=== PATIENT | male | born 1935 | race Caucasian/White ===

== ENCOUNTER → 2018-03-03 | Outpatient (CLI) | payer MEDICARE ==
[~2018-03-03] MED LIST: ASCO500T20 PO; ASCO500T7 PO; ASCO500W4 PO; ASP325TEC PO; ASPI-586 PO; ASPI-587 PO; ASPI-999 PO; BACL10TA PO; CALC-879 PO; CALC600T PO; CALC600T12 PO; CHLO500T2 PO; CHOL200035 PO; CLOP75TA28 PO; CLOP75TA69 PO; CLPD75T PO; CYAN250014 PO; DOXY100C2 PO; DOXY100C42 PO; ENAL5TAB PO; ERGO400T3 PO; FAMO20TA5 PO; FEXO-104 PO; FINA5TAB PO; FISH1CAP15 PO; FLUT16SP22 NSEACH; FLUT50DI IH; FLUT9.9S NS; GLUCOSAMINE 1,1 EACH PO; GLUTATHIONE PO; LEVO137T2 PO; LEVO175T5 PO; LEVO500T2 PO; LEVO500T69 PO; LOPE2CAP PO; LORA10CA PO; LOSA1TAB20 PO; LOSA50TA6 PO; LVT.15T PO; MAGN400T39 PO; METO200T2 PO; METO25TA PO; MU-V1TAB28 PO; MULT-608 PO; NF-OLOP5ML OP; NITR0.4T39 SL; NTR.4SL SL; PHEN-640 PO; PHEN200T27 PO; PRM25T PO; SIMV10TA3 PO; SITA50TA PO; SODI1PAC NS; SODIUM PO; TAMS0.4C2 PO; TERA5CAP10 PO; TRIA1CAP4 PO; VITAMIN B12 PO
--- NOTE | 2018-03-03 13:18 | Diagnostic Imaging Report ---
INDICATION: Chronic low back pain. TIME OF EXAM: 11:21 a.m. FINDINGS: Three views of the lumbar spine were obtained. Curvature of the lumbar spine is normal. There is grade 2 spondylolisthesis of L5 on S1. Lumbar vertebrae demonstrate normal stature. There is multilevel degenerative disc disease with variable disc space narrowing and marginal spurring. There is a compression fracture involving the T11 vertebral body, age indeterminate. No definite retropulsion is seen. Abdominal aorta is heavily calcified. IMPRESSION: 1. Lumbar spondylosis and listhesis. 2. T11 compression fracture, age indeterminate. MRI of the lumbar spine would be useful for further evaluation. Dictated by: Dictated on workstation # [id number]
--- NOTE | 2018-03-03 13:19 | Diagnostic Imaging Report ---
INDICATION: Back pain. TIME OF EXAM: 11:21 AM FINDINGS: Lower thoracic compression fracture is again noted and described on recent lumbar spine report. This appears to represent either T11 or T12. Remaining thoracic vertebrae show normal stature. Paraspinous line is intact. IMPRESSION: Lower thoracic compression fracture, age-indeterminate. MRI could be performed to evaluate acuity. Dictated by: Dictated on workstation # [id number]
== END ==
LOC: RAD 10:39
PROVIDERS: ATTEND Nurse Practitioner Family
DX: S22.080A Wedge compression fracture of T11-T12 vertebra, initial encounter for closed fracture (principal); M47.816 Spondylosis without myelopathy or radiculopathy, lumbar region; M43.16 Spondylolisthesis, lumbar region
CPT/HCPCS: 72072; 72100

== ENCOUNTER → 2018-03-05 | Outpatient (CLI) | payer MEDICARE ==
--- NOTE | 2018-03-05 11:08 | Diagnostic Imaging Report ---
INDICATION: Back pain. TECHNIQUE: Multiplanar and multisequence acquisitions were acquired through the thoracic spine without the use of gadolinium. FINDINGS: There is an acute T11 compression fracture with approximately 50% loss of vertebral body height anteriorly. There is also some edema in the T6 vertebral body which may reflect mild compression deformity. There has been an anterior cervical disc fusion in the cervical spine. The remaining thoracic vertebral body heights are well-maintained. The visualized portions of the spinal cord are normal signal intensity and morphology. There is no focal disc extrusion or high-grade spinal stenosis. Conus medullaris seen at L1 is normal in appearance. IMPRESSION: Acute T7 compression fracture, likely amenable to kyphoplasty, if clinically warranted. Edema in the T6 vertebral body. This is nonspecific however suspect for early or occult compression fracture. No other focal abnormality in the thoracic spine. Dictated by: Dictated on workstation # [id number]
== END ==
LOC: RAD 07:09
PROVIDERS: ATTEND Nurse Practitioner Family
DX: S22.080A Wedge compression fracture of T11-T12 vertebra, initial encounter for closed fracture (principal); G95.19 Other vascular myelopathies
CPT/HCPCS: 72146

== ENCOUNTER 2018-04-26 11:31 | Emergency (ER) | payer MEDICARE ==
[~2018-04-26] VITALS: Ht 182.9 cm; Wt 72.6 kg
--- OUTSIDE RECORDS SUMMARY | 2018-04-26 11:36 | XMS REPORT ---
Author Author GEOVANNI CEDILLO Organization [facility] Address [address] [place] [address] Care Team Providers Care Gambling Broker Name Role Phone GEOVANNI CEDILLO Unavailable PROBLEMS Unknown Problems ALLERGIES No Information ENCOUNTERS Encounter Location Date Diagnosis [facility] [address] [facility] [id number] [address] Apr, Encounter for immunization Z23 IMMUNIZATIONS Vaccine Route Administration Date Status TDAP (BOOSTRIX) IM Intramuscular May 04, 2017 Administered SOCIAL HISTORY Never Assessed REASON FOR VISIT Immunization(s)-JOSE Zavala PLAN OF CARE VITAL SIGNS MEDICATIONS Unknown Medications RESULTS No Results PROCEDURES Procedure Date Ordered Result Body Site TDAP (BOOSTRIX) May 04, 2017 SINGLE IMMUNIZATION ADMIN May 04, 2017 INSTRUCTIONS MEDICATIONS ADMINISTERED No Known Medications
--- OUTSIDE RECORDS SUMMARY | 2018-04-26 11:41 | XMS REPORT | CCD ---
Author Author Shalini Mitchell MD, [facility] Address [address] [place] [address] Phone Care Team Providers Care Pest Control Service Technician Name Role Phone PP Unavailable CCM Unavailable Summary Purpose Interface Exchange Insurance Providers Payer name Policy type / Coverage type Covered constitution party ID Effective Begin Date Effective End Date WPS Medicare Part B Medicare Part B [id number] Unknown [facility] Medicare Part B [id number] Unknown Family history Mother Diagnosis Age At Onset advanced age Unknown Father Diagnosis Age At Onset autoimmune disease Unknown Social History Social History Element Codes Description Effective Dates Marital status Unknown 12/04/2014 Number of children Unknown 3 12/04/2014 Employment Unknown [email or web address] 12/04/[address]: 7032126 Quit over 10 years ago 12/04/[address]: 401613349 Never drinks alcohol 12/04/2014 Allergies, Adverse Reactions, Alerts Substance Reaction Codes Entered Date Inactivated Date Status Seasonal Unknown 12/04/2014 No Inactive Date Active * NO KNOWN DRUG ALLERGIES Unknown 12/04/2014 No Inactive Date Active Past Medical History Illness Codes Condition Status Onset Date Resolved Date Low back pain ICD-9: 724.2 ICD-10: M54.5 Active 03/03/2018 Unknown Mild cognitive impairment, so stated ICD-9: 331.83 ICD-10: G31.84 Active 03/03/2018 Unknown Pain in thoracic spine ICD-9: 724.1 ICD-10: M54.6 Active 03/03/2018 Unknown Allergic rhinitis due to pollen ICD-9: 477.9 ICD-10: J30.1 Active 04/01/2017 Unknown Essential (primary) hypertension ICD-9: 401.1 ICD-10: I10 Active 10/19/2016 Unknown Hypothyroidism, unspecified ICD-9: 244.9 ICD-10: E03.9 Active 07/22/2016 Unknown Mixed hyperlipidemia ICD-9: 272.2 ICD-10: E78.2 Active 07/22/2016 Unknown Other allergic rhinitis ICD-9: 477.8 ICD-10: J30.89 Active 04/08/2017 Unknown Type 2 diabetes mellitus without complications ICD-9: 250.00 ICD-10: E11.9 Active 07/22/2016 Unknown Laceration without foreign body of left forearm, initial encounter ICD-9: 881.00 ICD-10: S51.812A Active 12/16/2017 Unknown Laceration without foreign body of left hand, initial encounter ICD-9: 882.0 ICD-10: S61.412A Active 11/10/2017 Unknown Dizziness and giddiness ICD-9: 780.4 ICD-10: R42 Active 10/13/2017 Unknown Syncope and collapse ICD-9: 780.2 ICD-10: R55 Active 10/13/2017 Unknown Cough ICD-9: 786.2 ICD-10: R05 Active 08/03/2017 Unknown Acute bronchitis due to other specified organisms ICD-9: 466.0 ICD-10: J20.8 Active 08/03/2017 Unknown Encounter for immunization ICD-9: V06.6 ICD-10: Z23 Active 04/01/2017 Unknown Allergic rhinitis due to pollen ICD-9: 477.0 ICD-10: J30.1 Active 05/11/2016 Unknown Pain in left knee ICD- 9: 719.46 ICD-10: M25.562 Active 03/25/2016 Unknown Essential (primary) hypertension ICD-9: 401.9 ICD-10: I10 Active 07/22/2016 Unknown Acute recurrent maxillary sinusitis ICD-9: 461.0 ICD-10: J01.01 Active 05/18/2016 Unknown Encounter for immunization ICD-9: V03.82 ICD-10: Z23 Active 05/04/2016 Unknown Encounter for immunization ICD-9: V04.81 ICD-10: Z23 Active 04/23/2016 Unknown bladder cancer Unknown Active 04/21/2016 Unknown Localized edema ICD-9 : 782.3 ICD-10: R60.0 Active 03/25/2016 Unknown Pain in right shoulder ICD-9: 719.41 ICD-10: M25.511 Active 01/26/2016 Unknown Lichen planus, unspecified ICD-9: 697.0 ICD-10: L43.9 Active 08/26/2015 Unknown Cervical disc disorder with radiculopathy, unspecified cervical region ICD-9: 722.71 ICD-10: M50.10 Active 06/05/2015 Unknown Cervicalgia ICD-9: 723.1 ICD-10: M54.2 Active 04/29/2015 Unknown Primary osteoarthritis, unspecified site ICD-9: 715.90 ICD-10: M19.91 Active 04/22/2015 Unknown Osteoarthritis Unknown Active 03/04/2015 Unknown Osteoarthritis ICD-9: 715.90 Active 03/03/2015 Unknown Diabetes Unknown Active 12/04/2014 Unknown Hypertension Unknown Active 12/04/2014 Unknown Hypothryroidism Unknown Active 12/04/2014 Unknown ACTINIC KERATOSIS ICD- 9: 702.0 Active 12/03/2014 Unknown DIABETES TYPE II ICD-9 : 250.00 Active 12/03/2014 Unknown ESSENTIAL HYPERTENSION ICD-9: 401.9 Active 12/03/2014 Unknown Hypothyroidism ICD-9: 244.9 Active 12/03/2014 Unknown Problems Condition Codes Effective Dates Condition Status Low back pain ICD-9: 724.2 ICD-10: M54.5 03/03/2018 Active Mild cognitive impairment, so stated ICD-9: 331.83 ICD-10: G31.84 03/03/2018 Active Pain in thoracic spine ICD-9: 724.1 ICD-10: M54.6 03/03/2018 Active Allergic rhinitis due to pollen ICD-9: 477.9 ICD-10: J30.1 04/01/2017 Active Essential (primary) hypertension ICD-9: 401.1 ICD-10: I10 10/19/2016 Active Hypothyroidism, unspecified ICD-9: 244.9 ICD-10: E03.9 07/22/2016 Active Mixed hyperlipidemia ICD-9: 272.2 ICD-10: E78.2 07/22/2016 Active Other allergic rhinitis ICD-9: 477.8 ICD-10: J30.89 04/08/2017 Active Type 2 diabetes mellitus without complications ICD-9: 250.00 ICD-10: E11.9 07/22/2016 Active Laceration without foreign body of left forearm, initial encounter ICD-9: 881.00 ICD-10: S51.812A 12/16/2017 Active Laceration without foreign body of left hand, initial encounter ICD-9: 882.0 ICD-10: S61.412A 11/10/2017 Active Dizziness and giddiness ICD-9: 780.4 ICD-10: R42 10/13/2017 Active Syncope and collapse ICD-9: 780.2 ICD-10: R55 10/13/2017 Active Cough ICD-9: 786.2 ICD-10: R05 08/03/2017 Active Acute bronchitis due to other specified organisms ICD-9: 466.0 ICD-10: J20.8 08/03/2017 Active Encounter for immunization ICD-9: V06.6 ICD-10: Z23 04/01/2017 Active Allergic rhinitis due to pollen ICD-9: 477.0 ICD-10: J30.1 05/11/2016 Active Pain in left knee ICD- 9: 719.46 ICD-10: M25.562 03/25/2016 Active Essential (primary) hypertension ICD-9: 401.9 ICD-10: I10 07/22/2016 Active Acute recurrent maxillary sinusitis ICD-9: 461.0 ICD-10: J01.01 05/18/2016 Active Encounter for immunization ICD-9: V03.82 ICD-10: Z23 05/04/2016 Active Encounter for immunization ICD-9: V04.81 ICD-10: Z23 04/23/2016 Active bladder cancer Unknown 04/21/2016 Active Localized edema ICD-9 : 782.3 ICD-10: R60.0 03/25/2016 Active Pain in right shoulder ICD-9: 719.41 ICD-10: M25.511 01/26/2016 Active Lichen planus, unspecified ICD-9: 697.0 ICD-10: L43.9 08/26/2015 Active Cervical disc disorder with radiculopathy, unspecified cervical region ICD-9: 722.71 ICD-10: M50.10 06/05/2015 Active Cervicalgia ICD-9: 723.1 ICD-10: M54.2 04/29/2015 Active Primary osteoarthritis, unspecified site ICD-9: 715.90 ICD-10: M19.91 04/22/2015 Active Osteoarthritis Unknown 03/04/2015 Active Osteoarthritis ICD-9: 715.90 03/03/2015 Active Diabetes Unknown 12/04/2014 Active Hypertension Unknown 12/04/2014 Active Hypothryroidism Unknown 12/04/2014 Active ACTINIC KERATOSIS ICD- 9: 702.0 12/03/2014 Active DIABETES TYPE II ICD-9 : 250.00 12/03/2014 Active ESSENTIAL HYPERTENSION ICD-9: 401.9 12/03/2014 Active Hypothyroidism ICD-9: 244.9 12/03/2014 Active Medications Medication Codes Instructions Start Date Stop Date Status Fill Instructions ketoconazole 2 % shampoo RxNorm: 263368 1 Application TOP UD 12/04/2018 Active Xyzal 5 mg tablet RxNorm: 701408 1 Tablet(s) PO daily 201706/23/2018 Active Xyzal 5 mg tablet RxNorm: 397337 1 Tablet(s) PO daily 201702/23/2018 Inactive metoprolol succinate ER 25 mg tablet,extended release 24 hr RxNorm: 502232 TAKE ONE TABLET BY MOUTH ONCE DAILY 01/10/2018 No Stop Date Active baclofen 10 mg tablet RxNorm: 852605 TAKE ONE TABLET BY MOUTH THREE TIMES DAILY NEEDED FOR MUSCLE SPASM 12/16/2017 No Stop Date Active Jardiance 10 mg tablet RxNorm: 8554614 1 Tablet(s) PO daily 11/201704/18/2018 Active tamsulosin 0.4 mg capsule RxNorm: 530398 TAKE ONE CAPSULE BY MOUTH ONCE DAILY 10/04/2017 No Stop Date Active Zithromax Z-Anil 250 mg tablet RxNorm: 937090 1 Tablet(s) PO UD 08/30/2017 09/03/2017 Inactive zpack Tessalon 200 mg capsule RxNorm: 460164 1 Capsule(s) PO TID as needed 08/23/2017 09/11/2017 Inactive Tessalon 200 mg capsule RxNorm: 795141 1 Capsule(s) PO TID as needed 08/23/2017 08/22/2017 Inactive prednisone 10 mg tablet RxNorm: 651378 Tablet(s) PO UD 2017 No Stop Date Active 6,5,4,3,2,1 doxycycline hyclate 100 mg capsule RxNorm: 2766889 1 Capsule(s) PO BID 08/18/2017 08/27/2017 Inactive Phenergan-Codeine 6.25 mg-10 mg/5 mL syrup RxNorm: 794406 5 to 10 ml PO Q6 as needed 08/17/2017 08/22/2017 Inactive Zithromax Z-Anil 250 mg tablet RxNorm: 045205 1 Tablet(s) PO UD 2017 08/17/2017 Inactive zpack ceftriaxone 500 mg solution for injection RxNorm: 6845298 Inj 08/03/2017 08/03/2017 Inactive cephalexin 500 mg capsule RxNorm: 804553 1 Capsule(s) PO QID 08/09/2017 Inactive Kenalog 40 mg/mL suspension for injection RxNorm: 7678611 1 Milliliter(s) Inj 08/03/2017 08/03/2017 Inactive losartan 50 mg tablet RxNorm: 939138 TAKE ONE TABLET BY MOUTH ONCE DAILY IN THE MORNING 08/02/2017 No Stop Date Active simvastatin 10 mg tablet RxNorm: 303347 TAKE ONE TABLET BY MOUTH ONCE DAILY 08/02/2017 No Stop Date Active levothyroxine 137 mcg tablet RxNorm: 901909 TAKE ONE TABLET BY MOUTH ONCE DAILY 07/26/2017 No Stop Date Active Flonase Allergy Relief 50 mcg/actuation nasal spray, suspension RxNorm: 9521737 USE TWO SPRAY(S) IN EACH NOSTRIL ONCE DAILY 06/28/2017 No Stop Date Active baclofen 10 mg tablet RxNorm: 353936 TAKE ONE TABLET BY MOUTH THREE TIMES DAILY NEEDED FOR MUSCLE SPASM 06/28/20172017 Inactive Kenalog 40 mg/mL suspension for injection RxNorm: 1925072 1 Milliliter(s) Inj 04/08/2017 04/08/2017 Inactive doxycycline hyclate 100 mg tablet RxNorm: 015139 1 Tablet(s) PO BID 04/01/2017 04/10/2017 Inactive PLEASE GIVE 90 DAY SUPPLY losartan 50 mg tablet RxNorm: 254090 TAKE ONE TABLET BY MOUTH ONCE DAILY IN THE MORNING 02/01/2017 07/30/2017 Inactive levothyroxine 137 mcg tablet RxNorm: 863932 1 Tablet(s) PO daily 01/22/2017 07/20/2017 Inactive hold until he calls for fill- using samples from office metoprolol succinate ER 25 mg tablet,extended release 24 hr RxNorm: 463992 1 Tablet(s) PO daily 01/11/2017 01/05/2018 Inactive tamsulosin 0.4 mg capsule RxNorm: 289668 TAKE ONE CAPSULE BY MOUTH ONCE DAILY 01/11/2017 10/03/2017 Inactive simvastatin 10 mg tablet RxNorm: 368262 TAKE ONE TABLET BY MOUTH ONCE DAILY 12/17/2016 06/14/2017 Inactive levothyroxine 150 mcg tablet RxNorm: 024236 1 Tablet(s) PO daily 09/24/2016 01/21/2017 Inactive doxycycline hyclate 100 mg tablet RxNorm: 872206 1 Tablet(s) PO daily 07/30/2016 01/25/2017 Inactive PLEASE GIVE 90 DAY SUPPLY doxycycline hyclate 100 mg tablet RxNorm: 247749 1 Tablet(s) PO daily 07/27/2016 07/29/2016 Inactive PLEASE GIVE 90 DAY SUPPLY quinine 324 mg capsule RxNorm: 225420 1 Capsule(s) PO HS PRN No Stop Date Active LEG CRAMPS doxycycline hyclate 100 mg tablet RxNorm: 851318 1 Tablet(s) PO daily 05/29/2016 07/26/2016 Inactive PLEASE GIVE 90 DAY SUPPLY Kenalog 40 mg/mL suspension for injection RxNorm: 6249905 Milliliter(s) Inj 05/19/2016 05/19/2016 Inactive Levaquin 500 mg tablet RxNorm: 388593 1 Tablet(s) PO daily 07/201505/25/2016 Inactive Zithromax Z-Anil 250 mg tablet RxNorm: 207028 1 Tablet(s) PO UD 05/14/2016 09/09/2016 Inactive zpack Kenalog 40 mg/mL suspension for injection RxNorm: 8545732 Milliliter(s) Inj 05/12/2016 05/12/2016 Inactive Zithromax Z-Anil 250 mg tablet RxNorm: 777438 1 Tablet(s) PO UD 05/08/2016 05/12/2016 Inactive dejan Flonase Allergy Relief 50 mcg/actuation nasal spray, suspension RxNorm: 3683610 2 [place] NASAL daily 04/21/20162016 Inactive levothyroxine 150 mcg tablet RxNorm: 782242 1 Tablet(s) PO daily 04/21/2016 09/23/2016 Inactive baclofen 10 mg tablet RxNorm: 305945 1 Tablet(s) PO TID as needed for muscle spasms 04/10/2016 11/05/2016 Inactive Flonase Allergy Relief 50 mcg/actuation nasal spray, suspension RxNorm: 9380156 2 [place] NASAL daily 01/27/20162015 Inactive losartan 50 mg tablet RxNorm: 646523 1 Tablet(s) PO QAM 201501/09/2017 Inactive magnesium oxide 400 mg tablet RxNorm: 019730 1 Tablet(s) PO daily 01/16/2016 01/09/2017 Inactive omega 9-rwu-mbc-fish oil 300 mg-1,000 mg capsule,delayed release RxNorm: 1 Capsule(s) PO daily 01/16/2016 01/09/2017 Inactive ask pt if this is needed- he may use OTC levothyroxine 175 mcg tablet RxNorm: 268224 1 Tablet(s) PO daily 01/16/2016 04/20/2016 Inactive metoprolol succinate ER 25 mg tablet,extended release 24 hr RxNorm: 565146 1 Tablet(s) PO daily 01/16/2016 01/09/2017 Inactive baclofen 10 mg tablet RxNorm: 564512 1 Tablet(s) PO TID as needed for muscle spasms 01/16/2016 04/09/2016 Inactive omega 9-hkk-fiz-fish oil 300 mg-1,000 mg capsule,delayed release RxNorm: 1 Capsule(s) PO daily 01/16/2016 01/15/2016 Inactive ask pt if this is needed- he may use OTC simvastatin 10 mg tablet RxNorm: 052920 1 Tablet(s) PO daily 12/16/2016 Inactive tamsulosin 0.4 mg capsule RxNorm: 136038 TAKE ONE CAPSULE BY MOUTH ONCE DAILY 01/05/2016 01/10/2017 Inactive levothyroxine 150 mcg tablet RxNorm: 259097 1 Tablet(s) PO daily 12/05/2015 12/04/2015 Inactive levothyroxine 150 mcg tablet RxNorm: 292903 1 Tablet(s) PO daily 12/05/2015 01/15/2016 Inactive metoprolol succinate ER 25 mg tablet,extended release 24 hr RxNorm: 223063 1 Tablet(s) PO daily 10/22/2015 01/15/2016 Inactive losartan 50 mg tablet RxNorm: 579321 1 Tablet(s) PO QAM 201501/15/2016 Inactive levothyroxine 175 mcg tablet RxNorm: 000641 1 Tablet(s) PO daily 09/09/2015 12/04/2015 Inactive doxycycline hyclate 100 mg tablet RxNorm: 090623 1 Tablet(s) PO daily 08/27/2015 01/15/2016 Inactive PLEASE GIVE 90 DAY SUPPLY doxycycline hyclate 100 mg tablet RxNorm: 162152 1 Tablet(s) PO daily 08/27/2015 08/26/2015 Inactive chlorzoxazone 500 mg tablet RxNorm: 561603 1 Tablet(s) PO Q6 as needed muscle spasms 08/15/2015 03/11/2016 Inactive chlorzoxazone 500 mg tablet RxNorm: 249714 1 Tablet(s) PO Q6 as needed muscle spasms 08/15/2015 08/14/2015 Inactive ketoconazole 2 % shampoo RxNorm: 246241 1 Application TOP UD 08/04/2015 Inactive ketoconazole 2 % shampoo RxNorm: 862673 1 Application TOP UD 01/15/2016 Inactive clobetasol 0.05 % topical solution RxNorm: 879049 1 Application TOP daily 08/01/2015 07/31/2015 Inactive clobetasol 0.05 % topical solution RxNorm: 715912 1 Application TOP daily 08/01/2015 01/15/2016 Inactive levothyroxine 175 mcg tablet RxNorm: 570250 1 Tablet(s) PO daily 07/22/2015 09/08/2015 Inactive doxycycline hyclate 100 mg tablet RxNorm: 529661 1 Tablet(s) PO daily 07/17/2015 08/15/2015 Inactive levothyroxine 175 mcg tablet RxNorm: 098675 Tablet(s) PO every other day 07/17/2015 07/21/2015 Inactive Zithromax Z-Anil 250 mg tablet RxNorm: 281403 1 Tablet(s) PO 05/07/2016 Inactive 1 zpack finasteride 5 mg tablet RxNorm: 386986 1 Tablet(s) PO daily 12/27/2015 Inactive simvastatin 10 mg tablet RxNorm: 427660 1 Tablet(s) PO daily 12/27/2015 Inactive clopidogrel 75 mg tablet RxNorm: 592590 1 Tablet(s) PO daily 01/15/2016 Inactive metoprolol succinate ER 25 mg tablet,extended release 24 hr RxNorm: 973365 1 Tablet(s) PO daily 07/01/2015 10/21/2015 Inactive levothyroxine 150 mcg tablet RxNorm: 916499 1 Tablet(s) PO daily 07/01/2015 07/21/2015 Inactive tamsulosin 0.4 mg capsule RxNorm: 367063 1 Capsule(s) PO daily 07/01/2015 12/27/2015 Inactive losartan 50 mg tablet RxNorm: 507941 1 Tablet(s) PO QAM 201410/17/2015 Inactive levothyroxine 150 mcg tablet RxNorm: 975757 1 Tablet(s) PO daily 07/01/2015 06/30/2015 Inactive Zithromax Z-Anil 250 mg tablet RxNorm: 825958 1 Tablet(s) PO 03/201507/09/2015 Inactive 1 zpack Januvia 100 mg tablet RxNorm: 431664 1/2 Tablet(s) PO BID 201410/20/2017 Inactive Januvia 50 mg tablet RxNorm: 192884 1 Tablet(s) PO BID 201404/22/2015 Inactive chlorzoxazone 500 mg tablet RxNorm: 047564 1 Tablet(s) PO Q6 as needed muscle spasms 01/21/2015 01/20/2015 Inactive baclofen 10 mg tablet RxNorm: 291299 1 Tablet(s) PO TID as needed for muscle spasms 01/21/2015 06/30/2015 Inactive chlorzoxazone 500 mg tablet RxNorm: 919570 1 Tablet(s) PO Q6 as needed muscle spasms 01/21/2015 03/03/2015 Inactive Vitamin D3 2,000 unit tablet RxNorm: 623113 Tablet(s) PO BID No Stop Date Active [SAVINGS FOR NON-COVERED DRUGS -- BIN:[id number], PCN: [id number], Group: XXXXX , ID# [id number], Questions: . THIS IS NOT INSURANCE.] Claritin 10 mg tablet RxNorm: 746878 1 Tablet(s) PO daily No Start Date Active aspirin 81 mg tablet RxNorm: 782909 Tablet(s) PO daily No Start Date Active Centrum Silver oral RxNorm: 92880 oral No Start Date Active Calcium Citrate + D 600 mg RxNorm: 630mg PO daily No Start Date Active sodium chloride oral RxNorm: oral No Start Date Active Vitamin C 500 mg chewable tablet RxNorm: 035965 1 Tablet(s) PO No Start Date Active Cerefolin NAC (algal oil) 6 mg-600 mg-2 mg-90.314 mg tablet RxNorm: 1 Tablet (s) PO daily No Start Date Active Vitamin B12 Oral RxNorm: oral No Start Date Active Fish Oil (with DHA-EPA) capsule RxNorm: oral No Start Date 01/15/2016 Inactive clopidogrel 75 mg tablet RxNorm: 004970 1 Tablet(s) PO daily No Start Date 06/30/2015 Inactive metoprolol succinate ER 25 mg tablet,extended release 24 hr RxNorm: 993027 1 Tablet(s) PO daily No Start Date 2014 Inactive simvastatin 10 mg tablet RxNorm: 998017 1 Tablet(s) PO daily No Start Date 06/30/2015 Inactive Claritin 10 mg tablet RxNorm: 543263 1 Tablet(s) PO daily No Start Date 07/16/2015 Inactive levothyroxine 175 mcg tablet RxNorm: 358077 Tablet(s) PO every other day No Start Date 06/30/2015 Inactive Vitamin D3 2,000 unit tablet RxNorm: 928716 Tablet(s) PO daily No Start Date 12/03/2014 Inactive losartan 50 mg tablet RxNorm: 047333 1 Tablet(s) PO QAM No Start Date 06/30/2015 Inactive magnesium oxide 400 mg tablet RxNorm: 458165 1 Tablet(s) PO daily No Start Date 01/15/2016 Inactive Phenergan-Codeine 6.25 mg-10 mg/5 mL syrup RxNorm: 342644 5 to 10 ml PO Q6 No Start Date 08/16/2017 Inactive baclofen 10 mg tablet RxNorm: 066979 1 Tablet(s) PO TID as needed for muscle spasms No Start Date 01/20/2015 Inactive finasteride 5 mg tablet RxNorm: 287235 1 Tablet(s) PO daily No Start Date 06/30/2015 Inactive quinine 324 mg capsule RxNorm: 577413 1 Capsule(s) PO HS PRN No Start Date 06/14/2016 Inactive LEG CRAMPS Vitamin D3 (with calcium carbonate) oral RxNorm: 744356 oral No Start Date 01/15/2016 Inactive Zithromax Z-Anil 250 mg tablet RxNorm: 235720 1 Tablet(s) PO No Start Date 06/25/2015 Inactive 1 zpack levothyroxine 150 mcg tablet RxNorm: 345449 Tablet(s) PO every other day No Start Date 06/30/2015 Inactive Januvia 50 mg tablet RxNorm: 264333 1 Tablet(s) PO daily No Start Date 03/06/2015 Inactive fluticasone 50 mcg/actuation nasal spray,suspension RxNorm: 495950 1 [place] NASAL daily No Start Date 01/15/2016 Inactive tamsulosin ER 0.4 mg capsule,extended release 24 hr RxNorm: 418053 1 Capsule(s) PO daily No Start Date 06/30/2015 Inactive Ellie 180 mg tablet RxNorm: 616076 1 Tablet(s) PO daily No Start Date 01/15/2016 Inactive Medication Administered Medication Codes Instructions Start Date Status ceftriaxone 500 mg solution for injection RxNorm: 8557135 08/03/2017 No longer Active Kenalog 40 mg/mL suspension for injection RxNorm: 4882610 1Milliliter 08/03/2017 No longer Active Kenalog 40 mg/mL suspension for injection RxNorm: 1059087 1Milliliter 04/08/2017 No longer Active Kenalog 40 mg/mL suspension for injection RxNorm: 9497051 Milliliter 05/19/2016 No longer Active Kenalog 40 mg/mL suspension for injection RxNorm: 2514605 Milliliter 05/12/2016 No longer Active Immunizations Vaccine Codes Date Status Influenza CVX: 141 04/01/2017 completed Pneumococcal (Adult) CVX: 33 05/05/2016 completed Influenza CVX: 141 04/24/2016 completed Influenza CVX: 141 04/17/2015 completed Pneumococcal CVX: 133 04/17/2015 completed Influenza CVX: 141 05/19/2014 completed Zoster CVX: 121 04/18/2006 completed Pneumococcal CVX: 33 06/18/2005 completed Assessments Condition Codes Effective Dates Mild cognitive impairment, so stated ICD-10: G31.84 ICD-9: 331.83 03/03/2018 Pain in thoracic spine ICD-10: M54.6 ICD-9: 724.1 03/03/2018 Low back pain ICD-10: M54.5 ICD-9: 724.2 03/03/2018 Essential (primary) hypertension ICD-10: I10 ICD-9: 401.1 01/10/2018 Other allergic rhinitis ICD-10: J30.89 ICD-9: 477.8 01/10/2018 Mixed hyperlipidemia ICD-10: E78.2 ICD-9: 272.2 01/10/2018 Hypothyroidism, unspecified ICD-10: E03.9 ICD-9: 244.9 01/10/2018 Type 2 diabetes mellitus without complications ICD-10: E11.9 ICD-9: 250.00 01/10/2018 Laceration without foreign body of left forearm, initial encounter ICD-10: S51.812A ICD-9: 881.00 12/16/2017 Laceration without foreign body of left hand, initial encounter ICD-10: S61.412A ICD-9: 882.0 11/10/2017 Dizziness and giddiness ICD-10: R42 ICD-9: 780.4 10/13/2017 Syncope and collapse ICD-10: R55 ICD-9: 780.2 10/13/2017 Cough ICD-10: R05 ICD-9: 786.2 09/01/2017 Acute bronchitis due to other specified organisms ICD-10: J20.8 ICD-9: 466.0 08/18/2017 Encounter for immunization ICD-10: Z23 ICD-9: V06.6 04/01/2017 Allergic rhinitis due to pollen ICD-10: J30.1 ICD-9: 477.0 01/21/2017 Pain in left knee ICD-10: M25.562 ICD-9: 719.46 10/19/2016 Essential (primary) hypertension ICD-10: I10 ICD-9: 401.9 07/23/2016 Acute recurrent maxillary sinusitis ICD-10: J01.01 ICD-9: 461.0 05/19/2016 Encounter for immunization ICD-10: Z23 ICD-9: V03.82 05/05/2016 Encounter for immunization ICD-10: Z23 ICD-9: V04.81 04/24/2016 Localized edema ICD-10: R60.0 ICD-9: 782.3 03/26/2016 Pain in right shoulder ICD-10: M25.511 ICD-9: 719.41 01/27/2016 Lichen planus, unspecified ICD-10: L43.9 ICD-9: 697.0 08/27/2015 Cervical disc disorder with radiculopathy, unspecified cervical region ICD-10: M50.10 ICD-9: 722.71 06/06/2015 Cervicalgia ICD-10: M54.2 ICD-9: 723.1 04/30/2015 Primary osteoarthritis, unspecified site ICD-10: M19.91 ICD-9: 715.90 04/23/2015 Osteoarthritis ICD-9: 715.90 03/04/2015 ESSENTIAL HYPERTENSION ICD-9: 401.9 03/04 DIABETES TYPE II ICD-9: 250.00 2014 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 2014 Hypothyroidism ICD-9: 244.9 12/04/2014 Reason For Visit Reason For Visit Effective Dates Notes back pain 03/03/2018 sinus congestion 01/10/2018 laceration of the arm 12/16/2017 dizziness 10/13/2017 diabetes mellitus 10/04/2017 cough 09/01/2017 cough 08/18/2017 cough 08/03/2017 diabetes mellitus 07/05/2017 diabetes mellitus 04/23/2017 sinus congestion 04/08/2017 vaccination against influenza 04/01/2017 diabetes mellitus 01/21/2017 diabetes mellitus 10/19/2016 diabetes mellitus 07/23/2016 cough 05/19/2016 vaccination against pneumonia 05/05/2016 vaccination against influenza 04/24/2016 diabetes mellitus 04/21/2016 knee pain 03/26/2016 Hospital Follow Up 01/27/2016 medication follow up 10/28/2015 hypertension 08/27/2015 hypertension 06/06/2015 neck pain 04/30/2015 hypertension 04/23/2015 hypertension 03/04/2015 hypertension 12/04/2014 Results Observation Observation Code Item Item Code Result Date Lipid Ord30 CHOL 142 mg/dL 01/11/2018 Lipid Ord30 HDL 50.0 mg/dl 01/11/2018 Lipid Ord30 TRIG 111 mg/dL 01/11/2018 Lipid Ord30 LDL 70 mg/dL 01/11/2018 Lipid Ord30 C/HDL 2.8 Ratio 01/11/2018 %Hba1C [id number] % HbA1c 68561-7 6.9 % 01/11/2018 %Hba1C [id number] Gluc Ave 151 mg/dL 01/11/2018 Cbc With Differential Ord2 WBC 6.90 K/ul 01/11/2018 Cbc With Differential Ord2 RBC 4.87 M/ul 01/11/2018 Cbc With Differential Ord2 HGB 14.6 g/dl 01/11/2018 Cbc With Differential Ord2 HCT 45.1 % 01/11/2018 Cbc With Differential Ord2 Neut% 62.9 % 01/11/2018 Cbc With Differential Ord2 Lymph% 17.4 % 01/11/2018 Cbc With Differential Ord2 MCV 92.6 fl 01/11/2018 Cbc With Differential Ord2 MCH 30.0 pg 01/11/2018 Cbc With Differential Ord2 [place]% 13.3 % 01/11/2018 Cbc With Differential Ord2 Eos% 5.4 % 01/11/2018 Cbc With Differential Ord2 MCHC 32.4 pg 01/11/2018 Cbc With Differential Ord2 Baso% 1.0 % 01/11/2018 Cbc With Differential Ord2 PLT 322 K/ul 01/11/2018 Cbc With Differential Ord2 RDW 13.8 % 01/11/2018 Cbc With Differential Ord2 Neut ABS# 4.34 K/ul 01/11/2018 Cbc With Differential Ord2 Lymph ABS# 1.20 K/ul 01/11/2018 Cbc With Differential Ord2 [place] ABS# 0.9 K/ul 01/11/2018 Cbc With Differential Ord2 Eos ABS# 0.4 K/ul 01/11/2018 Cbc With Differential Ord2 Baso ABS# 0.1 K/ul 01/11/2018 Tsh Ord6 TSH (3rd IS) 1.73 uIU/mL 01/11/2018 Comp Metabolic Ouj781 NA 140 mEq/L 01/11/2018 Comp Metabolic Jfq058 K 4.1 mEq/L 01/11/2018 Comp Metabolic Vvu232 CL 103 mEq/L 01/11/2018 Comp Metabolic Ekh748 CO2 28.0 mEq/L 01/11/2018 Comp Metabolic Mcv281 ANION GAP 13 01/11/2018 Comp Metabolic Wyd416 GLUCOSE 151 mg/dL 01/11/2018 Comp Metabolic Nnb945 Creat 0.9 mg/dL 01/11/2018 Comp Metabolic Lxl502 eGFR 87 ml/min/1.73m2 01/11/2018 Comp Metabolic Dlo141 BUN 18 mg/dL 01/11/2018 Comp Metabolic Tex399 B/C Ratio 20.2 Ratio 01/11/2018 Comp Metabolic Pqn846 CALCIUM 9.3 mg/dL 01/11/2018 Comp Metabolic Quk568 ALK PHOS 70 U/L 01/11/2018 Comp Metabolic Gta562 AST(SGOT) 18 U/L 01/11/2018 Comp Metabolic Nzr636 ALT(SGPT) 17 U/L 01/11/2018 Comp Metabolic Ydv857 BILI T 0.7 mg/dL 01/11/2018 Comp Metabolic Yvt307 ALBUMIN 4.1 g/dL 01/11/2018 Comp Metabolic Fzx955 TPRO 6.4 g/dL 01/11/2018 Comp Metabolic Sis131 GLOB 2.3 g/dL 01/11/2018 Comp Metabolic Kxu680 A/G Ratio 1.7 Ratio 01/11/2018 Comp Metabolic Bzu627 Osmo 284 mOsmo 01/11/2018 Free T4 Xnw443 FREE T4 0.80 ng/dL 10/08/2017 Lipid Ord30 CHOL 151 mg/dL 10/08/2017 Lipid Ord30 HDL 58.0 mg/dl 10/08/2017 Lipid Ord30 TRIG 126 mg/dL 10/08/2017 Lipid Ord30 LDL 68 mg/dL 10/08/2017 Lipid Ord30 C/HDL 2.6 Ratio 10/08/2017 Microalbumin Dkc195 MicroAlb <0.7 mg/dL 10/08/2017 %Hba1C Igj863 % HbA1c 95436-7 6.9 % 10/08/2017 %Hba1C Bfr153 Gluc Ave 151 mg/dL 10/08/2017 Tsh Ord6 TSH (3rd IS) 3.41 uIU/mL 10/08/2017 Cbc With Differential Ord2 WBC 6.07 K/ul 10/08/2017 Cbc With Differential Ord2 RBC 4.44 M/ul 10/08/2017 Cbc With Differential Ord2 HGB 13.5 g/dl 10/08/2017 Cbc With Differential Ord2 Neut% 66.0 % 10/08/2017 Cbc With Differential Ord2 HCT 41.0 % 10/08/2017 Cbc With Differential Ord2 MCV 92.3 fl 10/08/2017 Cbc With Differential Ord2 Lymph% 17.3 % 10/08/2017 Cbc With Differential Ord2 MCH 30.4 pg 10/08/2017 Cbc With Differential Ord2 [place]% 13.7 % 10/08/2017 Cbc With Differential Ord2 Eos% 2.3 % 10/08/2017 Cbc With Differential Ord2 MCHC 32.9 pg 10/08/2017 Cbc With Differential Ord2 PLT 298 K/ul 10/08/2017 Cbc With Differential Ord2 Baso% 0.7 % 10/08/2017 Cbc With Differential Ord2 Neut ABS# 4.01 K/ul 10/08/2017 Cbc With Differential Ord2 RDW 15.1 % 10/08/2017 Cbc With Differential Ord2 Lymph ABS# 1.05 K/ul 10/08/2017 Cbc With Differential Ord2 [place] ABS# 0.8 K/ul 10/08/2017 Cbc With Differential Ord2 Eos ABS# 0.1 K/ul 10/08/2017 Cbc With Differential Ord2 Baso ABS# 0.0 K/ul 10/08/2017 Comp Metabolic Sta020 NA 141 mEq/L 10/08/2017 Comp Metabolic Iir857 K 4.5 mEq/L 10/08/2017 Comp Metabolic Bgh498 CL 103 mEq/L 10/08/2017 Comp Metabolic Zps318 CO2 30.0 mEq/L 10/08/2017 Comp Metabolic Qef295 ANION GAP 13 10/08/2017 Comp Metabolic Trf011 GLUCOSE 150 mg/dL 10/08/2017 Comp Metabolic Rvp815 Creat 0.9 mg/dL 10/08/2017 Comp Metabolic Ezb218 eGFR 85 ml/min/1.73m2 10/08/2017 Comp Metabolic Bfs301 BUN 18 mg/dL 10/08/2017 Comp Metabolic Kwj264 B/C Ratio 19.8 Ratio 10/08/2017 Comp Metabolic Eef314 CALCIUM 9.4 mg/dL 10/08/2017 Comp Metabolic Hqr220 ALK PHOS 60 U/L 10/08/2017 Comp Metabolic Amr274 AST(SGOT) 17 U/L 10/08/2017 Comp Metabolic Qvg516 ALT(SGPT) 17 U/L 10/08/2017 Comp Metabolic Xmg165 BILI T 1.0 mg/dL 10/08/2017 Comp Metabolic Ktd582 ALBUMIN 4.0 g/dL 10/08/2017 Comp Metabolic Yxt413 TPRO 6.3 g/dL 10/08/2017 Comp Metabolic Npw417 GLOB 2.3 g/dL 10/08/2017 Comp Metabolic Vbt414 A/G Ratio 1.8 Ratio 10/08/2017 Comp Metabolic Uoo757 Osmo 286 mOsmo 10/08/2017 %Hba1C Gbo829 % HbA1c 70514-9 6.5 % 04/28/2017 %Hba1C Yfo814 Gluc Ave 140 mg/dL 04/28/2017 Lipid Ord30 CHOL 132 mg/dL 04/28/2017 Lipid Ord30 HDL 54.0 mg/dl 04/28/2017 Lipid Ord30 TRIG 72 mg/dL 04/28/2017 Lipid Ord30 LDL 64 mg/dL 04/28/2017 Lipid Ord30 C/HDL 2.4 Ratio 04/28/2017 Tsh Ord6 hTSH II 1.64 uIU/mL 04/28/2017 Cbc With Differential Ord2 WBC 7.36 K/ul 04/28/2017 Cbc With Differential Ord2 RBC 4.84 M/ul 04/28/2017 Cbc With Differential Ord2 HGB 14.3 g/dl 04/28/2017 Cbc With Differential Ord2 HCT 43.4 % 04/28/2017 Cbc With Differential Ord2 Neut% 67.7 % 04/28/2017 Cbc With Differential Ord2 MCV 89.7 fl 04/28/2017 Cbc With Differential Ord2 Lymph% 14.5 % 04/28/2017 Cbc With Differential Ord2 [place]% 14.0 % 04/28/2017 Cbc With Differential Ord2 MCH 29.5 pg 04/28/2017 Cbc With Differential Ord2 MCHC 32.9 pg 04/28/2017 Cbc With Differential Ord2 Eos% 3.3 % 04/28/2017 Cbc With Differential Ord2 PLT 296 K/ul 04/28/2017 Cbc With Differential Ord2 Baso% 0.5 % 04/28/2017 Cbc With Differential Ord2 RDW 15.2 % 04/28/2017 Cbc With Differential Ord2 Neut ABS# 4.98 K/ul 04/28/2017 Cbc With Differential Ord2 Lymph ABS# 1.07 K/ul 04/28/2017 Cbc With Differential Ord2 [place] ABS# 1.0 K/ul 04/28/2017 Cbc With Differential Ord2 Eos ABS# 0.2 K/ul 04/28/2017 Cbc With Differential Ord2 Baso ABS# 0.0 K/ul 04/28/2017 Free T4 Xuw051 FREE T4 1.07 ng/dL 04/28/2017 Comp Metabolic Cad495 NA 140 mEq/L 04/28/2017 Comp Metabolic Oii622 K 4.6 mEq/L 04/28/2017 Comp Metabolic Vqi798 CL 104 mEq/L 04/28/2017 Comp Metabolic Fbu170 CO2 27.0 mEq/L 04/28/2017 Comp Metabolic Efz536 ANION GAP 14 04/28/2017 Comp Metabolic Qvr826 GLUCOSE 141 mg/dL 04/28/2017 Comp Metabolic Anw461 Creat 1.0 mg/dL 04/28/2017 Comp Metabolic Lbr670 eGFR 79 ml/min/1.73m2 04/28/2017 Comp Metabolic Uhr405 BUN 26 mg/dL 04/28/2017 Comp Metabolic Kit475 B/C Ratio 26.8 Ratio 04/28/2017 Comp Metabolic Qws008 CALCIUM 9.4 mg/dL 04/28/2017 Comp Metabolic Fqb449 ALK PHOS 66 U/L 04/28/2017 Comp Metabolic Pel073 AST(SGOT) 21 U/L 04/28/2017 Comp Metabolic Fvy189 ALT(SGPT) 20 U/L 04/28/2017 Comp Metabolic Fyr046 BILI T 1.3 mg/dL 04/28/2017 Comp Metabolic Foh092 ALBUMIN 4.1 g/dL 04/28/2017 Comp Metabolic Wlh197 TPRO 6.3 g/dL 04/28/2017 Comp Metabolic Kev628 GLOB 2.2 g/dL 04/28/2017 Comp Metabolic Yso920 A/G Ratio 1.9 Ratio 04/28/2017 Comp Metabolic Eps852 Osmo 287 mOsmo 04/28/2017 %Hba1C Itw609 % HbA1c 31996-4 6.6 % 01/22/2017 %Hba1C Esg463 Gluc Ave 143 mg/dL 01/22/2017 Tsh Ord6 hTSH II 0.26 uIU/mL 01/22/2017 Cbc With Differential Ord2 WBC 6.68 K/ul 01/22/2017 Cbc With Differential Ord2 RBC 4.37 M/ul 01/22/2017 Cbc With Differential Ord2 HGB 13.2 g/dl 01/22/2017 Cbc With Differential Ord2 HCT 40.1 % 01/22/2017 Cbc With Differential Ord2 Neut% 67.6 % 01/22/2017 Cbc With Differential Ord2 Lymph% 15.1 % 01/22/2017 Cbc With Differential Ord2 MCV 91.8 fl 01/22/2017 Cbc With Differential Ord2 MCH 30.2 pg 01/22/2017 Cbc With Differential Ord2 [place]% 14.1 % 01/22/2017 Cbc With Differential Ord2 Eos% 2.5 % 01/22/2017 Cbc With Differential Ord2 MCHC 32.9 pg 01/22/2017 Cbc With Differential Ord2 Baso% 0.7 % 01/22/2017 Cbc With Differential Ord2 PLT 261 K/ul 01/22/2017 Cbc With Differential Ord2 Neut ABS# 4.51 K/ul 01/22/2017 Cbc With Differential Ord2 RDW 14.1 % 01/22/2017 Cbc With Differential Ord2 Lymph ABS# 1.01 K/ul 01/22/2017 Cbc With Differential Ord2 [place] ABS# 0.9 K/ul 01/22/2017 Cbc With Differential Ord2 Eos ABS# 0.2 K/ul 01/22/2017 Cbc With Differential Ord2 Baso ABS# 0.1 K/ul 01/22/2017 Comp Metabolic Tsx312 NA 140 mEq/L 01/22/2017 Comp Metabolic Dpf614 K 4.3 mEq/L 01/22/2017 Comp Metabolic Bcr003 CL 104 mEq/L 01/22/2017 Comp Metabolic Nmc444 CO2 29.0 mEq/L 01/22/2017 Comp Metabolic Lll299 ANION GAP 11 01/22/2017 Comp Metabolic Ymc647 GLUCOSE 146 mg/dL 01/22/2017 Comp Metabolic Dkm695 Creat 0.8 mg/dL 01/22/2017 Comp Metabolic Abu826 eGFR 100 ml/min/1.73m2 01/22/2017 Comp Metabolic Kte124 BUN 19 mg/dL 01/22/2017 Comp Metabolic Btk674 B/C Ratio 24.1 Ratio 01/22/2017 Comp Metabolic Cwn504 CALCIUM 9.2 mg/dL 01/22/2017 Comp Metabolic Lde784 ALK PHOS 60 U/L 01/22/2017 Comp Metabolic Crk747 AST(SGOT) 18 U/L 01/22/2017 Comp Metabolic Nac684 ALT(SGPT) 17 U/L 01/22/2017 Comp Metabolic Mme455 BILI T 0.6 mg/dL 01/22/2017 Comp Metabolic Izm777 ALBUMIN 3.7 g/dL 01/22/2017 Comp Metabolic Ewd309 TPRO 5.8 g/dL 01/22/2017 Comp Metabolic Wbk833 GLOB 2.1 g/dL 01/22/2017 Comp Metabolic Eal102 A/G Ratio 1.7 Ratio 01/22/2017 Comp Metabolic Vje641 Osmo 284 mOsmo 01/22/2017 Lipid Ord30 CHOL 126 mg/dL 01/22/2017 Lipid Ord30 HDL 43.0 mg/dl 01/22/2017 Lipid Ord30 TRIG 111 mg/dL 01/22/2017 Lipid Ord30 LDL 61 mg/dL 01/22/2017 Lipid Ord30 C/HDL 2.9 Ratio 01/22/2017 Free T4 Lzi237 FREE T4 0.96 ng/dL 01/22/2017 Comp Metabolic Cii229 NA 141 mEq/L 10/23/2016 Comp Metabolic Ijh688 K 4.3 mEq/L 10/23/2016 Comp Metabolic Zef235 CL 104 mEq/L 10/23/2016 Comp Metabolic Fwr183 CO2 29.0 mEq/L 10/23/2016 Comp Metabolic Uxb649 ANION GAP 12 10/23/2016 Comp Metabolic Ieh929 GLUCOSE 156 mg/dL 10/23/2016 Comp Metabolic Weh832 Creat 0.9 mg/dL 10/23/2016 Comp Metabolic Yzh056 eGFR 85 ml/min/1.73m2 10/23/2016 Comp Metabolic Wam754 BUN 19 mg/dL 10/23/2016 Comp Metabolic Qbw546 B/C Ratio 20.9 Ratio 10/23/2016 Comp Metabolic Alx561 CALCIUM 9.2 mg/dL 10/23/2016 Comp Metabolic Hsj991 ALK PHOS 72 U/L 10/23/2016 Comp Metabolic Vbr524 AST(SGOT) 21 U/L 10/23/2016 Comp Metabolic Hfu440 ALT(SGPT) 19 U/L 10/23/2016 Comp Metabolic Dui985 BILI T 0.8 mg/dL 10/23/2016 Comp Metabolic Xyi622 ALBUMIN 3.8 g/dL 10/23/2016 Comp Metabolic Ivu332 TPRO 6.2 g/dL 10/23/2016 Comp Metabolic Bel822 GLOB 2.4 g/dL 10/23/2016 Comp Metabolic Irh678 A/G Ratio 1.6 Ratio 10/23/2016 Comp Metabolic Nok370 Osmo 287 mOsmo 10/23/2016 Cbc With Differential Ord2 WBC 5.81 K/ul 10/23/2016 Cbc With Differential Ord2 RBC 4.65 M/ul 10/23/2016 Cbc With Differential Ord2 HGB 14.3 g/dl 10/23/2016 Cbc With Differential Ord2 Neut% 69.7 % 10/23/2016 Cbc With Differential Ord2 HCT 43.2 % 10/23/2016 Cbc With Differential Ord2 Lymph% 13.6 % 10/23/2016 Cbc With Differential Ord2 MCV 92.9 fl 10/23/2016 Cbc With Differential Ord2 [place]% 12.7 % 10/23/2016 Cbc With Differential Ord2 MCH 30.8 pg 10/23/2016 Cbc With Differential Ord2 Eos% 3.3 % 10/23/2016 Cbc With Differential Ord2 MCHC 33.1 pg 10/23/2016 Cbc With Differential Ord2 PLT 304 K/ul 10/23/2016 Cbc With Differential Ord2 Baso% 0.7 % 10/23/2016 Cbc With Differential Ord2 RDW 13.5 % 10/23/2016 Cbc With Differential Ord2 Neut ABS# 4.05 K/ul 10/23/2016 Cbc With Differential Ord2 Lymph ABS# 0.79 K/ul 10/23/2016 Cbc With Differential Ord2 [place] ABS# 0.7 K/ul 10/23/2016 Cbc With Differential Ord2 Eos ABS# 0.2 K/ul 10/23/2016 Cbc With Differential Ord2 Baso ABS# 0.0 K/ul 10/23/2016 Lipid Ord30 CHOL 134 mg/dL 10/23/2016 Lipid Ord30 HDL 42.0 mg/dl 10/23/2016 Lipid Ord30 TRIG 101 mg/dL 10/23/2016 Lipid Ord30 LDL 72 mg/dL 10/23/2016 Lipid Ord30 C/HDL 3.2 Ratio 10/23/2016 Free T4 Fpr471 FREE T4 0.99 ng/dL 10/23/2016 Tsh Ord6 hTSH II 0.70 uIU/mL 10/23/2016 %Hba1C Xdm215 % HbA1c 92957-0 7.0 % 10/23/2016 %Hba1C Wse982 Gluc Ave 154 mg/dL 10/23/2016 Lipid Ord30 CHOL 136 mg/dL 07/24/2016 Lipid Ord30 HDL 52.0 mg/dl 07/24/2016 Lipid Ord30 TRIG 83 mg/dL 07/24/2016 Lipid Ord30 LDL 67 mg/dL 07/24/2016 Lipid Ord30 C/HDL 2.6 Ratio 07/24/2016 %Hba1C Bcg229 % HbA1c 33078-3 7.1 % 07/24/2016 %Hba1C Crh139 Gluc Ave 157 mg/dL 07/24/2016 Tsh Ord6 hTSH II 0.84 uIU/mL 07/24/2016 Cbc With Differential Ord2 WBC 7.56 K/ul 07/24/2016 Cbc With Differential Ord2 RBC 4.70 M/ul 07/24/2016 Cbc With Differential Ord2 HGB 14.4 g/dl 07/24/2016 Cbc With Differential Ord2 HCT 43.7 % 07/24/2016 Cbc With Differential Ord2 Neut% 63.2 % 07/24/2016 Cbc With Differential Ord2 Lymph% 20.6 % 07/24/2016 Cbc With Differential Ord2 MCV 93.0 fl 07/24/2016 Cbc With Differential Ord2 [place]% 13.8 % 07/24/2016 Cbc With Differential Ord2 MCH 30.6 pg 07/24/2016 Cbc With Differential Ord2 MCHC 33.0 pg 07/24/2016 Cbc With Differential Ord2 Eos% 2.0 % 07/24/2016 Cbc With Differential Ord2 PLT 287 K/ul 07/24/2016 Cbc With Differential Ord2 Baso% 0.4 % 07/24/2016 Cbc With Differential Ord2 RDW 15.0 % 07/24/2016 Cbc With Differential Ord2 Neut ABS# 4.78 K/ul 07/24/2016 Cbc With Differential Ord2 Lymph ABS# 1.56 K/ul 07/24/2016 Cbc With Differential Ord2 [place] ABS# 1.0 K/ul 07/24/2016 Cbc With Differential Ord2 Eos ABS# 0.2 K/ul 07/24/2016 Cbc With Differential Ord2 Baso ABS# 0.0 K/ul 07/24/2016 Comp Metabolic Ycm877 NA 139 mEq/L 07/24/2016 Comp Metabolic Opk038 K 4.5 mEq/L 07/24/2016 Comp Metabolic Jke103 CL 103 mEq/L 07/24/2016 Comp Metabolic Hgv735 CO2 30.0 mEq/L 07/24/2016 Comp Metabolic Gtu097 ANION GAP 11 07/24/2016 Comp Metabolic Mpi737 GLUCOSE 161 mg/dL 07/24/2016 Comp Metabolic Hgz528 Creat 1.0 mg/dL 07/24/2016 Comp Metabolic Uac116 eGFR 80 ml/min/1.73m2 07/24/2016 Comp Metabolic Skz375 BUN 23 mg/dL 07/24/2016 Comp Metabolic Bcr541 B/C Ratio 24.0 Ratio 07/24/2016 Comp Metabolic Eso519 CALCIUM 9.4 mg/dL 07/24/2016 Comp Metabolic Ebp899 ALK PHOS 66 U/L 07/24/2016 Comp Metabolic Oms525 AST(SGOT) 18 U/L 07/24/2016 Comp Metabolic Lpr354 ALT(SGPT) 22 U/L 07/24/2016 Comp Metabolic Jbr218 BILI T 1.1 mg/dL 07/24/2016 Comp Metabolic Cvs829 ALBUMIN 4.0 g/dL 07/24/2016 Comp Metabolic Pxu158 TPRO 6.4 g/dL 07/24/2016 Comp Metabolic Tqe508 GLOB 2.4 g/dL 07/24/2016 Comp Metabolic Sci560 A/G Ratio 1.6 Ratio 07/24/2016 Comp Metabolic Rwz321 Osmo 285 mOsmo 07/24/2016 %Hba1C Lan657 % HbA1c 88321-3 7.0 % 03/11/2016 %Hba1C Akj520 Gluc Ave 154 mg/dL 03/11/2016 Free T4 Gkv593 FREE T4 0.92 ng/dL 03/11/2016 Tsh Ord6 hTSH II 0.92 uIU/mL 03/11/2016 %Hba1C Lee064 % HbA1c 04789-0 7.1 % 11/27/2015 %Hba1C Thy489 Gluc Ave 157 mg/dL 11/27/2015 Free T4 Ivp175 FREE T4 0.95 ng/dL 11/27/2015 Cbc With Differential Ord2 WBC 6.21 K/ul 11/27/2015 Cbc With Differential Ord2 RBC 4.79 M/ul 11/27/2015 Cbc With Differential Ord2 HGB 13.8 g/dl 11/27/2015 Cbc With Differential Ord2 Neut% 61.3 % 11/27/2015 Cbc With Differential Ord2 HCT 42.1 % 11/27/2015 Cbc With Differential Ord2 Lymph% 20.3 % 11/27/2015 Cbc With Differential Ord2 MCV 87.9 fl 11/27/2015 Cbc With Differential Ord2 [place]% 13.5 % 11/27/2015 Cbc With Differential Ord2 MCH 28.8 pg 11/27/2015 Cbc With Differential Ord2 Eos% 3.9 % 11/27/2015 Cbc With Differential Ord2 MCHC 32.8 pg 11/27/2015 Cbc With Differential Ord2 PLT 304 K/ul 11/27/2015 Cbc With Differential Ord2 Baso% 1.0 % 11/27/2015 Cbc With Differential Ord2 Neut ABS# 3.81 K/ul 11/27/2015 Cbc With Differential Ord2 RDW 14.7 % 11/27/2015 Cbc With Differential Ord2 Lymph ABS# 1.26 K/ul 11/27/2015 Cbc With Differential Ord2 [place] ABS# 0.8 K/ul 11/27/2015 Cbc With Differential Ord2 Eos ABS# 0.2 K/ul 11/27/2015 Cbc With Differential Ord2 Baso ABS# 0.1 K/ul 11/27/2015 Cbc With Differential Ord2 New Analyzer Notice Please note new ref ranges starting 07-31-2015 due to implemntation of new five part differential hematolgy analyzer. 11/27/2015 Tsh Ord6 hTSH II 0.35 uIU/mL 11/27/2015 Comp Metabolic Mpc807 NA 139 mEq/L 11/27/2015 Comp Metabolic Lrs270 K 4.4 mEq/L 11/27/2015 Comp Metabolic Mjk775 CL 105 mEq/L 11/27/2015 Comp Metabolic Ldw648 CO2 28.0 mEq/L 11/27/2015 Comp Metabolic Mht193 ANION GAP 10 11/27/2015 Comp Metabolic Pnb104 GLUCOSE 139 mg/dL 11/27/2015 Comp Metabolic Ymq567 Creat 0.9 mg/dL 11/27/2015 Comp Metabolic Ezg739 eGFR 89 ml/min/1.73m2 11/27/2015 Comp Metabolic Zsr533 BUN 15 mg/dL 11/27/2015 Comp Metabolic Dxu263 B/C Ratio 17.2 Ratio 11/27/2015 Comp Metabolic Dyh769 CALCIUM 8.8 mg/dL 11/27/2015 Comp Metabolic Mnn580 ALK PHOS 78 U/L 11/27/2015 Comp Metabolic Wlr297 AST(SGOT) 18 U/L 11/27/2015 Comp Metabolic Tbm718 ALT(SGPT) 16 U/L 11/27/2015 Comp Metabolic Dwo498 BILI T 0.9 mg/dL 11/27/2015 Comp Metabolic Phk205 ALBUMIN 3.7 g/dL 11/27/2015 Comp Metabolic Glg948 TPRO 6.2 g/dL 11/27/2015 Comp Metabolic Lxo791 GLOB 2.5 g/dL 11/27/2015 Comp Metabolic Lgu243 A/G Ratio 1.5 Ratio 11/27/2015 Comp Metabolic Jew722 Osmo 281 mOsmo 11/27/2015 Lipid Ord30 CHOL 123 mg/dL 11/27/2015 Lipid Ord30 HDL 41.0 mg/dl 11/27/2015 Lipid Ord30 TRIG 130 mg/dL 11/27/2015 Lipid Ord30 LDL 56 mg/dL 11/27/2015 Lipid Ord30 C/HDL 3.0 Ratio 11/27/2015 Free T4 Dxl187 FREE T4 0.87 ng/dL 08/28/2015 Lipid Ord30 CHOL 147 mg/dL 08/28/2015 Lipid Ord30 HDL 65.0 mg/dl 08/28/2015 Lipid Ord30 TRIG 86 mg/dL 08/28/2015 Lipid Ord30 LDL 65 mg/dL 08/28/2015 Lipid Ord30 C/HDL 2.3 Ratio 08/28/2015 Tsh Ord6 hTSH II 2.87 uIU/mL 08/28/2015 Cbc With Differential Ord2 WBC 6.44 K/ul 08/28/2015 Cbc With Differential Ord2 RBC 4.66 M/ul 08/28/2015 Cbc With Differential Ord2 HGB 13.0 g/dl 08/28/2015 Cbc With Differential Ord2 HCT 40.0 % 08/28/2015 Cbc With Differential Ord2 Neut% 58.4 % 08/28/2015 Cbc With Differential Ord2 Lymph% 23.8 % 08/28/2015 Cbc With Differential Ord2 MCV 85.8 fl 08/28/2015 Cbc With Differential Ord2 MCH 27.9 pg 08/28/2015 Cbc With Differential Ord2 [place]% 12.7 % 08/28/2015 Cbc With Differential Ord2 MCHC 32.5 pg 08/28/2015 Cbc With Differential Ord2 Eos% 4.0 % 08/28/2015 Cbc With Differential Ord2 PLT 323 K/ul 08/28/2015 Cbc With Differential Ord2 Baso% 1.1 % 08/28/2015 Cbc With Differential Ord2 Neut ABS# 3.76 K/ul 08/28/2015 Cbc With Differential Ord2 RDW 18.3 % 08/28/2015 Cbc With Differential Ord2 Lymph ABS# 1.53 K/ul 08/28/2015 Cbc With Differential Ord2 [place] ABS# 0.8 K/ul 08/28/2015 Cbc With Differential Ord2 Eos ABS# 0.3 K/ul 08/28/2015 Cbc With Differential Ord2 Baso ABS# 0.1 K/ul 08/28/2015 Cbc With Differential Ord2 New Analyzer Notice Please note new ref ranges starting 07-31-2015 due to implemntation of new five part differential hematolgy analyzer. 08/28/2015 %Hba1C Aoj417 % HbA1c 49791-0 6.9 % 08/28/2015 %Hba1C Jtx051 Gluc Ave 151 mg/dL 08/28/2015 Comp Metabolic Eva120 NA 139 mEq/L 08/28/2015 Comp Metabolic Jzc865 K 4.5 mEq/L 08/28/2015 Comp Metabolic Esd417 CL 104 mEq/L 08/28/2015 Comp Metabolic Jac037 CO2 28.0 mEq/L 08/28/2015 Comp Metabolic Fpl822 ANION GAP 12 08/28/2015 Comp Metabolic Qhs655 GLUCOSE 146 mg/dL 08/28/2015 Comp Metabolic Zwl648 Creat 1.0 mg/dL 08/28/2015 Comp Metabolic Gsm764 eGFR 77 ml/min/1.73m2 08/28/2015 Comp Metabolic Sig477 BUN 21 mg/dL 08/28/2015 Comp Metabolic Euw685 B/C Ratio 21.2 Ratio 08/28/2015 Comp Metabolic Wgs510 CALCIUM 9.3 mg/dL 08/28/2015 Comp Metabolic Rwt805 ALK PHOS 70 U/L 08/28/2015 Comp Metabolic Aow587 AST(SGOT) 18 U/L 08/28/2015 Comp Metabolic Nvl269 ALT(SGPT) 16 U/L 08/28/2015 Comp Metabolic Fbi377 BILI T 0.6 mg/dL 08/28/2015 Comp Metabolic Inu851 ALBUMIN 4.0 g/dL 08/28/2015 Comp Metabolic Awi363 TPRO 6.4 g/dL 08/28/2015 Comp Metabolic Hpy938 GLOB 2.4 g/dL 08/28/2015 Comp Metabolic Rqx007 A/G Ratio 1.7 Ratio 08/28/2015 Comp Metabolic Xpt689 Osmo 283 mOsmo 08/28/2015 Lipid Ord30 CHOL 137 mg/dL 03/06/2015 Lipid Ord30 HDL 48.0 mg/dl 03/06/2015 Lipid Ord30 TRIG 121 mg/dL 03/06/2015 Lipid Ord30 LDL 65 mg/dL 03/06/2015 Lipid Ord30 C/HDL 2.9 Ratio 03/06/2015 %Hba1C Whx849 % HbA1c 10440-2 6.7 % 03/06/2015 %Hba1C Rjt163 Gluc Ave 146 mg/dL 03/06/2015 Tsh Ord6 hTSH II 0.98 uIU/mL 03/06/2015 Cbc With Differential Ord2 WBC 8.4 K/uL 03/06/2015 Cbc With Differential Ord2 LYM 1.7 K/uL 03/06/2015 Cbc With Differential Ord2 LYM% 20.0 % 03/06/2015 Cbc With Differential Ord2 NEUT/GRAN 6.1 K/uL 03/06/2015 Cbc With Differential Ord2 NEUT/GRAN % 72.9 % 03/06/2015 Cbc With Differential Ord2 MID 0.6 K/uL 03/06/2015 Cbc With Differential Ord2 MID% 7.1 % 03/06/2015 Cbc With Differential Ord2 RBC 4.76 M/uL 03/06/2015 Cbc With Differential Ord2 HGB 13.9 g/dL 03/06/2015 Cbc With Differential Ord2 HCT 43.6 % 03/06/2015 Cbc With Differential Ord2 MCV 92 fL 03/06/2015 Cbc With Differential Ord2 MCH 29 pg 03/06/2015 Cbc With Differential Ord2 MCHC 32 g/dL 03/06/2015 Cbc With Differential Ord2 PLT 287 K/uL 03/06/2015 Cbc With Differential Ord2 RDW 14.5 % 03/06/2015 Comp Metabolic Xdc163 NA 137 mEq/L 03/06/2015 Comp Metabolic Rri642 K 4.2 mEq/L 03/06/2015 Comp Metabolic Wqt676 CL 103 mEq/L 03/06/2015 Comp Metabolic Qox228 CO2 30.0 mEq/L 03/06/2015 Comp Metabolic Vdw147 ANION GAP 8 03/06/2015 Comp Metabolic Dki636 GLUCOSE 156 mg/dL 03/06/2015 Comp Metabolic Xvo904 Creat 1.0 mg/dL 03/06/2015 Comp Metabolic Ucm799 eGFR 75 ml/min/1.73m2 03/06/2015 Comp Metabolic Efi750 BUN 17 mg/dL 03/06/2015 Comp Metabolic Lsm143 B/C Ratio 16.7 Ratio 03/06/2015 Comp Metabolic Tnn368 CALCIUM 9.2 mg/dL 03/06/2015 Comp Metabolic Hqo994 ALK PHOS 75 U/L 03/06/2015 Comp Metabolic Gyo062 AST(SGOT) 17 U/L 03/06/2015 Comp Metabolic Gsi832 ALT(SGPT) 16 U/L 03/06/2015 Comp Metabolic Vrr948 BILI T 0.8 mg/dL 03/06/2015 Comp Metabolic Ais172 ALBUMIN 4.0 g/dL 03/06/2015 Comp Metabolic Gav394 TPRO 6.3 g/dL 03/06/2015 Comp Metabolic Vyf949 GLOB 2.3 g/dL 03/06/2015 Comp Metabolic Pzt373 A/G Ratio 1.7 Ratio 03/06/2015 Comp Metabolic Ooc407 Osmo 279 mOsmo 03/06/2015 Free T4 Tve763 FREE T4 1.02 ng/dL 03/06/2015 Review of Systems System Result Effective Dates Constitutional No recent illness 2017 Constitutional No anorexia 03/03/2018 Constitutional No night sweats 2017 Constitutional No chills 03/03/2018 Constitutional No diaphoresis 03/03/2018 Constitutional No fatigue 03/03/2018 Constitutional No fever 03/03/2018 Constitutional No insomnia 03/03/2018 Constitutional No malaise 03/03/2018 Constitutional No weight loss 03/03/2018 Constitutional No weight gain 03/03/2018 Constitutional No obesity 03/03/2018 Eyes No eye pain 03/03/2018 Eyes No vision change 03/03/2018 Ears/Nose/Throat/Neck No dizziness 2017 Ears/Nose/Throat/Neck No headache 2017 Ears/Nose/Throat/Neck nasal allergies Ears/Nose/Throat/Neck nasal discharge Ears/Nose/Throat/Neck No otalgia 2017 Ears/Nose/Throat/Neck No sore throat Cardiovascular No dyspnea 03/03/2018 Cardiovascular No palpitations 2017 Respiratory No chest congestion 2017 Respiratory No chest tightness 2017 Respiratory No cough 03/03/2018 Gastrointestinal No abdominal pain 2017 Gastrointestinal No constipation 2017 Genitourinary/Nephrology No dysuria 03/03 Musculoskeletal No stiffness 03/03/2018 Musculoskeletal arthralgia(s) 03/03/2018 Dermatologic No rash 03/03/2018 Dermatologic No sores 03/03/2018 Neurologic No alteration of consciousness 03/03/2018 Neurologic No pain, facial 03/03/2018 Neurologic No pain, generalized 2017 Neurologic No pain, limb 03/03/2018 Psychiatric No anxiety 03/03/2018 Psychiatric No depression 03/03/2018 Neurologic memory loss 03/03/2018 Constitutional No recent illness 2017 Constitutional No anorexia 01/10/2018 Constitutional No night sweats 2017 Constitutional No chills 01/10/2018 Constitutional No diaphoresis 01/10/2018 Constitutional No fatigue 01/10/2018 Constitutional No fever 01/10/2018 Constitutional No insomnia 01/10/2018 Constitutional No malaise 01/10/2018 Constitutional No weight loss 01/10/2018 Constitutional No weight gain 01/10/2018 Constitutional No obesity 01/10/2018 Eyes No eye pain 01/10/2018 Eyes No vision change 01/10/2018 Ears/Nose/Throat/Neck No dizziness 2017 Ears/Nose/Throat/Neck No headache 2017 Cardiovascular No dyspnea 01/10/2018 Cardiovascular No palpitations 2017 Respiratory No chest congestion 2017 Respiratory No chest tightness 2017 Respiratory No cough 01/10/2018 Gastrointestinal No abdominal pain 2017 Gastrointestinal No constipation 2017 Genitourinary/Nephrology No dysuria 01/10 Musculoskeletal No stiffness 01/10/2018 Musculoskeletal arthralgia(s) 01/10/2018 Dermatologic No rash 01/10/2018 Dermatologic No sores 01/10/2018 Neurologic No alteration of consciousness 01/10/2018 Neurologic No pain, facial 01/10/2018 Neurologic No pain, generalized 2017 Neurologic No pain, limb 01/10/2018 Psychiatric No anxiety 01/10/2018 Psychiatric No depression 01/10/2018 Musculoskeletal joint complaint 2017 Ears/Nose/Throat/Neck nasal allergies Ears/Nose/Throat/Neck nasal discharge Ears/Nose/Throat/Neck No otalgia 2017 Ears/Nose/Throat/Neck No sore throat Constitutional No recent illness 2017 Constitutional No anorexia 12/16/2017 Constitutional No night sweats 2017 Constitutional No chills 12/16/2017 Constitutional No diaphoresis 12/16/2017 Constitutional No fatigue 12/16/2017 Constitutional No fever 12/16/2017 Constitutional No insomnia 12/16/2017 Constitutional No malaise 12/16/2017 Constitutional No weight loss 12/16/2017 Constitutional No weight gain 12/16/2017 Dermatologic laceration 12/16/2017 Dermatologic No erythema 12/16/2017 Dermatologic No drainage 12/16/2017 Eyes No eye pain 10/13/2017 Eyes No vision change 10/13/2017 Ears/Nose/Throat/Neck No dizziness 2017 Ears/Nose/Throat/Neck No headache 2017 Cardiovascular No dyspnea 10/13/2017 Cardiovascular No palpitations 2017 Respiratory No chest congestion 2017 Respiratory No cough 10/13/2017 Gastrointestinal No abdominal pain 2017 Gastrointestinal No constipation 2017 Genitourinary/Nephrology No dysuria 10/13 Musculoskeletal No stiffness 10/13/2017 Musculoskeletal arthralgia(s) 10/13/2017 Dermatologic No rash 10/13/2017 Dermatologic No sores 10/13/2017 Neurologic No alteration of consciousness 10/13/2017 Neurologic No pain, facial 10/13/2017 Neurologic No pain, generalized 2017 Neurologic No pain, limb 10/13/2017 Psychiatric No anxiety 10/13/2017 Psychiatric No depression 10/13/2017 Constitutional No recent illness 2017 Constitutional No chills 10/13/2017 Constitutional No diaphoresis 10/13/2017 Constitutional No fever 10/13/2017 Ears/Nose/Throat/Neck nasal allergies Ears/Nose/Throat/Neck nasal discharge Cardiovascular No chest pain/pressure Cardiovascular near-syncope/dizziness Cardiovascular syncope 10/13/2017 Neurologic No headache 10/13/2017 Neurologic No mental status change 2017 Neurologic No aphasia 10/13/2017 Neurologic No ataxia 10/13/2017 Constitutional No recent illness 2017 Constitutional No anorexia 10/04/2017 Constitutional No night sweats 2017 Constitutional No chills 10/04/2017 Constitutional No diaphoresis 10/04/2017 Constitutional No fatigue 10/04/2017 Constitutional No fever 10/04/2017 Constitutional No insomnia 10/04/2017 Constitutional No malaise 10/04/2017 Constitutional No weight loss 10/04/2017 Constitutional No weight gain 10/04/2017 Constitutional No obesity 10/04/2017 Eyes No eye pain 10/04/2017 Eyes No vision change 10/04/2017 Ears/Nose/Throat/Neck No dizziness 2017 Ears/Nose/Throat/Neck No headache 2017 Cardiovascular No dyspnea 10/04/2017 Cardiovascular No palpitations 2017 Respiratory No chest congestion 2017 Respiratory No chest tightness 2017 Respiratory No cough 10/04/2017 Gastrointestinal No abdominal pain 2017 Gastrointestinal No constipation 2017 Musculoskeletal No stiffness 10/04/2017 Musculoskeletal arthralgia(s) 10/04/2017 Dermatologic No rash 10/04/2017 Dermatologic No sores 10/04/2017 Neurologic No alteration of consciousness 10/04/2017 Neurologic No pain, facial 10/04/2017 Neurologic No pain, generalized 2017 Neurologic No pain, limb 10/04/2017 Psychiatric No anxiety 10/04/2017 Psychiatric No depression 10/04/2017 Genitourinary/Nephrology No dysuria 10/04 Constitutional No recent illness 2017 Constitutional No anorexia 09/01/2017 Constitutional No night sweats 2017 Constitutional No chills 09/01/2017 Constitutional No diaphoresis 09/01/2017 Constitutional No fatigue 09/01/2017 Constitutional No fever 09/01/2017 Constitutional No insomnia 09/01/2017 Constitutional No malaise 09/01/2017 Constitutional No weight loss 09/01/2017 Constitutional No weight gain 09/01/2017 Constitutional No obesity 09/01/2017 Eyes No eye pain 09/01/2017 Eyes No vision change 09/01/2017 Ears/Nose/Throat/Neck No dizziness 2017 Ears/Nose/Throat/Neck No headache 2017 Cardiovascular No dyspnea 09/01/2017 Cardiovascular No palpitations 2017 Respiratory No chest congestion 2017 Respiratory No chest tightness 2017 Gastrointestinal No abdominal pain 2017 Gastrointestinal No constipation 2017 Musculoskeletal No stiffness 09/01/2017 Musculoskeletal arthralgia(s) 09/01/2017 Dermatologic No rash 09/01/2017 Dermatologic No sores 09/01/2017 Neurologic No alteration of consciousness 09/01/2017 Neurologic No pain, facial 09/01/2017 Neurologic No pain, generalized 2017 Neurologic No pain, limb 09/01/2017 Psychiatric No anxiety 09/01/2017 Psychiatric No depression 09/01/2017 Respiratory cough 09/01/2017 Constitutional recent illness 08/18/2017 Constitutional No chills 08/18/2017 Constitutional No diaphoresis 08/18/2017 Constitutional fatigue 08/18/2017 Constitutional No fever 08/18/2017 Constitutional malaise 08/18/2017 Eyes No eye discharge 08/18/2017 Eyes No eye erythema 08/18/2017 Ears/Nose/Throat/Neck No dizziness 2017 Ears/Nose/Throat/Neck nasal allergies Ears/Nose/Throat/Neck nasal discharge Ears/Nose/Throat/Neck No sore throat Ears/Nose/Throat/Neck No otalgia 2017 Cardiovascular No chest pain/pressure Respiratory chest congestion 08/18/2017 Respiratory chest tightness 08/18/2017 Respiratory cough 08/18/2017 Gastrointestinal No abdominal pain 2017 Dermatologic No rash 08/18/2017 Neurologic No alteration of consciousness 08/18/2017 Respiratory No dyspnea 08/18/2017 Neurologic No mental status change 2017 Constitutional recent illness 08/03/2017 Constitutional No night sweats 2017 Constitutional No chills 08/03/2017 Constitutional No diaphoresis 08/03/2017 Constitutional fatigue 08/03/2017 Constitutional fever 08/03/2017 Constitutional malaise 08/03/2017 Eyes No eye discharge 08/03/2017 Eyes No eye erythema 08/03/2017 Ears/Nose/Throat/Neck No dizziness 2017 Ears/Nose/Throat/Neck headache 2017 Ears/Nose/Throat/Neck nasal allergies Ears/Nose/Throat/Neck nasal discharge Ears/Nose/Throat/Neck No otalgia 2017 Ears/Nose/Throat/Neck No sore throat Cardiovascular No chest pain/pressure Respiratory cough 08/03/2017 Gastrointestinal No abdominal pain 2017 Dermatologic No rash 08/03/2017 Neurologic No alteration of consciousness 08/03/2017 Respiratory chest tightness 08/03/2017 Respiratory chest congestion 08/03/2017 Constitutional No recent illness 2016 Constitutional No anorexia 07/05/2017 Constitutional No night sweats 2016 Constitutional No chills 07/05/2017 Constitutional No diaphoresis 07/05/2017 Constitutional No fatigue 07/05/2017 Constitutional No fever 07/05/2017 Constitutional No insomnia 07/05/2017 Constitutional No malaise 07/05/2017 Constitutional No weight loss 07/05/2017 Constitutional No weight gain 07/05/2017 Constitutional No obesity 07/05/2017 Eyes No eye pain 07/05/2017 Eyes No vision change 07/05/2017 Ears/Nose/Throat/Neck No dizziness 2016 Ears/Nose/Throat/Neck No headache 2016 Cardiovascular No dyspnea 07/05/2017 Cardiovascular No palpitations 2016 Respiratory No chest congestion 2016 Respiratory No chest tightness 2016 Gastrointestinal No abdominal pain 2016 Gastrointestinal No constipation 2016 Genitourinary/Nephrology No anuria/oliguria 07/05/2017 Genitourinary/Nephrology No dysuria 07/05 Musculoskeletal No stiffness 07/05/2017 Musculoskeletal arthralgia(s) 07/05/2017 Dermatologic No rash 07/05/2017 Dermatologic No sores 07/05/2017 Neurologic No alteration of consciousness 07/05/2017 Neurologic No pain, facial 07/05/2017 Neurologic No pain, generalized 2016 Neurologic No pain, limb 07/05/2017 Psychiatric No anxiety 07/05/2017 Psychiatric No depression 07/05/2017 Endocrine No polydipsia 07/05/2017 Endocrine No polyuria 07/05/2017 Hematologic/Lymphatic No abnormal ecchymoses 07/05/2017 Hematologic/Lymphatic No abnormal bleeding and bruising 07/05/2017 Allergy/Immunology No anaphylactoid reaction 07/05/2017 Allergy/Immunology No food allergy 2016 Allergy/Immunology No rhinitis 2016 Constitutional No recent illness 2016 Constitutional No anorexia 04/23/2017 Constitutional No night sweats 2016 Constitutional No chills 04/23/2017 Constitutional No diaphoresis 04/23/2017 Constitutional No fatigue 04/23/2017 Constitutional No fever 04/23/2017 Constitutional No insomnia 04/23/2017 Constitutional No malaise 04/23/2017 Constitutional No weight loss 04/23/2017 Constitutional No weight gain 04/23/2017 Constitutional No obesity 04/23/2017 Eyes No eye pain 04/23/2017 Eyes No vision change 04/23/2017 Ears/Nose/Throat/Neck No dizziness 2016 Ears/Nose/Throat/Neck No headache 2016 Ears/Nose/Throat/Neck nasal allergies 12/2016 Cardiovascular No dyspnea 04/23/2017 Cardiovascular No palpitations 2016 Respiratory No chest congestion 2016 Respiratory No chest tightness 2016 Gastrointestinal No abdominal pain 2016 Gastrointestinal No constipation 2016 Genitourinary/Nephrology No anuria/oliguria 04/23/2017 Genitourinary/Nephrology No dysuria 04/23 Musculoskeletal No stiffness 04/23/2017 Musculoskeletal swelling 04/23/2017 Musculoskeletal arthralgia(s) 04/23/2017 Dermatologic No rash 04/23/2017 Dermatologic No sores 04/23/2017 Neurologic No alteration of consciousness 04/23/2017 Neurologic No pain, facial 04/23/2017 Neurologic No pain, generalized 2016 Neurologic No pain, limb 04/23/2017 Psychiatric No anxiety 04/23/2017 Psychiatric No depression 04/23/2017 Endocrine No polydipsia 04/23/2017 Endocrine No polyuria 04/23/2017 Hematologic/Lymphatic No abnormal ecchymoses 04/23/2017 Hematologic/Lymphatic No abnormal bleeding and bruising 04/23/2017 Allergy/Immunology No anaphylactoid reaction 04/23/2017 Allergy/Immunology No food allergy 2016 Allergy/Immunology No rhinitis 2016 Constitutional recent illness 04/08/2017 Constitutional No anorexia 04/08/2017 Constitutional No night sweats 2016 Constitutional No chills 04/08/2017 Constitutional No diaphoresis 04/08/2017 Constitutional No fatigue 04/08/2017 Constitutional No fever 04/08/2017 Constitutional No insomnia 04/08/2017 Constitutional No malaise 04/08/2017 Constitutional No weight loss 04/08/2017 Constitutional No weight gain 04/08/2017 Eyes No eye discharge 04/08/2017 Eyes No eye erythema 04/08/2017 Ears/Nose/Throat/Neck No dizziness 2016 Ears/Nose/Throat/Neck headache 2016 Ears/Nose/Throat/Neck nasal allergies Ears/Nose/Throat/Neck nasal discharge Ears/Nose/Throat/Neck No otalgia 2016 Ears/Nose/Throat/Neck No sore throat Respiratory No cough 04/08/2017 Cardiovascular No chest pain/pressure Gastrointestinal No abdominal pain 2016 Dermatologic No rash 04/08/2017 Neurologic No alteration of consciousness 04/08/2017 Constitutional No recent illness 2016 Constitutional No anorexia 01/21/2017 Constitutional No night sweats 2016 Constitutional No chills 01/21/2017 Constitutional No diaphoresis 01/21/2017 Constitutional No fatigue 01/21/2017 Constitutional No fever 01/21/2017 Constitutional No insomnia 01/21/2017 Constitutional No malaise 01/21/2017 Constitutional No weight loss 01/21/2017 Constitutional No weight gain 01/21/2017 Constitutional No obesity 01/21/2017 Eyes No eye pain 01/21/2017 Eyes No vision change 01/21/2017 Ears/Nose/Throat/Neck No dizziness 2016 Ears/Nose/Throat/Neck No headache 2016 Ears/Nose/Throat/Neck nasal allergies 12/2016 Cardiovascular No dyspnea 01/21/2017 Cardiovascular No palpitations 2016 Respiratory No chest congestion 2016 Respiratory No chest tightness 2016 Gastrointestinal No abdominal pain 2016 Gastrointestinal No constipation 2016 Genitourinary/Nephrology No anuria/oliguria 01/21/2017 Genitourinary/Nephrology No dysuria 01/21 Musculoskeletal No stiffness 01/21/2017 Musculoskeletal swelling 01/21/2017 Musculoskeletal arthralgia(s) 01/21/2017 Dermatologic No rash 01/21/2017 Dermatologic No sores 01/21/2017 Neurologic No alteration of consciousness 01/21/2017 Neurologic No pain, facial 01/21/2017 Neurologic No pain, generalized 2016 Neurologic No pain, limb 01/21/2017 Psychiatric No anxiety 01/21/2017 Psychiatric No depression 01/21/2017 Endocrine No polydipsia 01/21/2017 Endocrine No polyuria 01/21/2017 Hematologic/Lymphatic No abnormal ecchymoses 01/21/2017 Hematologic/Lymphatic No abnormal bleeding and bruising 01/21/2017 Allergy/Immunology No anaphylactoid reaction 01/21/2017 Allergy/Immunology No food allergy 2016 Allergy/Immunology No rhinitis 2016 Constitutional No recent illness 2016 Constitutional No anorexia 10/19/2016 Constitutional No night sweats 2016 Constitutional No chills 10/19/2016 Constitutional No diaphoresis 10/19/2016 Constitutional No fatigue 10/19/2016 Constitutional No fever 10/19/2016 Constitutional No insomnia 10/19/2016 Constitutional No malaise 10/19/2016 Constitutional No weight loss 10/19/2016 Constitutional No weight gain 10/19/2016 Constitutional No obesity 10/19/2016 Eyes No eye pain 10/19/2016 Eyes No vision change 10/19/2016 Ears/Nose/Throat/Neck No dizziness 2016 Ears/Nose/Throat/Neck No headache 2016 Cardiovascular No dyspnea 10/19/2016 Cardiovascular No palpitations 2016 Respiratory cough 10/19/2016 Respiratory No chest tightness 2016 Respiratory No chest congestion 2016 Gastrointestinal No constipation 2016 Gastrointestinal No abdominal pain 2016 Genitourinary/Nephrology No anuria/oliguria 10/19/2016 Genitourinary/Nephrology No dysuria 10/19 Musculoskeletal No stiffness 10/19/2016 Musculoskeletal swelling 10/19/2016 Musculoskeletal arthralgia(s) 10/19/2016 Dermatologic No rash 10/19/2016 Dermatologic No sores 10/19/2016 Neurologic No alteration of consciousness 10/19/2016 Neurologic No pain, limb 10/19/2016 Neurologic No pain, generalized 2016 Neurologic No pain, facial 10/19/2016 Psychiatric No anxiety 10/19/2016 Psychiatric No depression 10/19/2016 Endocrine No polydipsia 10/19/2016 Endocrine No polyuria 10/19/2016 Hematologic/Lymphatic No abnormal ecchymoses 10/19/2016 Hematologic/Lymphatic No abnormal bleeding and bruising 10/19/2016 Allergy/Immunology No anaphylactoid reaction 10/19/2016 Allergy/Immunology No rhinitis 2016 Allergy/Immunology No food allergy 2016 Ears/Nose/Throat/Neck nasal allergies 09/2016 Musculoskeletal joint complaint 2016 Constitutional No recent illness 2016 Constitutional No anorexia 07/23/2016 Constitutional No night sweats 2016 Constitutional No chills 07/23/2016 Constitutional No diaphoresis 07/23/2016 Constitutional No fatigue 07/23/2016 Constitutional No fever 07/23/2016 Constitutional No insomnia 07/23/2016 Constitutional No malaise 07/23/2016 Constitutional No weight loss 07/23/2016 Constitutional No weight gain 07/23/2016 Eyes No eye discharge 07/23/2016 Eyes No eye erythema 07/23/2016 Ears/Nose/Throat/Neck nasal allergies 11/2016 Ears/Nose/Throat/Neck nasal discharge 11/2016 Cardiovascular No chest pain/pressure 11/2016 Cardiovascular edema 07/23/2016 Respiratory No productive sputum 2016 Respiratory cough 07/23/2016 Gastrointestinal No abdominal pain 2016 Gastrointestinal No constipation 2016 Gastrointestinal No diarrhea 07/23/2016 Genitourinary/Nephrology No dysuria 07/23 Musculoskeletal joint complaint 2016 Dermatologic No rash 07/23/2016 Neurologic No alteration of consciousness 07/23/2016 Psychiatric No anxiety 07/23/2016 Endocrine No dry or coarse skin 2016 Constitutional recent illness 05/19/2016 Constitutional No anorexia 05/19/2016 Constitutional No night sweats 2015 Constitutional No chills 05/19/2016 Constitutional No diaphoresis 05/19/2016 Constitutional fatigue 05/19/2016 Constitutional No fever 05/19/2016 Constitutional No insomnia 05/19/2016 Constitutional No malaise 05/19/2016 Eyes No eye erythema 05/19/2016 Eyes No eye discharge 05/19/2016 Ears/Nose/Throat/Neck No dizziness 2015 Ears/Nose/Throat/Neck headache 2015 Ears/Nose/Throat/Neck nasal discharge 07/2015 Ears/Nose/Throat/Neck No otalgia 2015 Ears/Nose/Throat/Neck sinus congestion Ears/Nose/Throat/Neck sore throat 2015 Cardiovascular No chest pain/pressure 07/2015 Cardiovascular No edema 05/19/2016 Respiratory cough 05/19/2016 Respiratory productive sputum 05/19/2016 Gastrointestinal No abdominal pain 2015 Gastrointestinal No constipation 2015 Gastrointestinal No diarrhea 05/19/2016 Genitourinary/Nephrology No dysuria 05/19 Musculoskeletal No joint complaint 2015 Dermatologic No rash 05/19/2016 Dermatologic No sores 05/19/2016 Neurologic No alteration of consciousness 05/19/2016 Constitutional No recent illness 2015 Constitutional No anorexia 04/21/2016 Constitutional No night sweats 2015 Constitutional No chills 04/21/2016 Constitutional No diaphoresis 04/21/2016 Constitutional No fatigue 04/21/2016 Constitutional No fever 04/21/2016 Constitutional No insomnia 04/21/2016 Constitutional No malaise 04/21/2016 Constitutional No weight loss 04/21/2016 Constitutional No weight gain 04/21/2016 Eyes No eye discharge 04/21/2016 Eyes No eye erythema 04/21/2016 Ears/Nose/Throat/Neck nasal allergies 10/2015 Ears/Nose/Throat/Neck nasal discharge 10/2015 Ears/Nose/Throat/Neck sinus congestion Cardiovascular No chest pain/pressure 10/2015 Cardiovascular edema 04/21/2016 Musculoskeletal joint complaint 2015 Respiratory cough 04/21/2016 Respiratory No productive sputum 2015 Gastrointestinal No abdominal pain 2015 Gastrointestinal No constipation 2015 Gastrointestinal No diarrhea 04/21/2016 Genitourinary/Nephrology No dysuria 04/21 Dermatologic No rash 04/21/2016 Neurologic No alteration of consciousness 04/21/2016 Psychiatric No anxiety 04/21/2016 Endocrine No dry or coarse skin 2015 Constitutional No recent illness 2015 Constitutional No anorexia 03/26/2016 Constitutional No night sweats 2015 Constitutional No chills 03/26/2016 Constitutional No diaphoresis 03/26/2016 Constitutional No fatigue 03/26/2016 Constitutional No fever 03/26/2016 Constitutional No insomnia 03/26/2016 Constitutional No malaise 03/26/2016 Constitutional No weight loss 03/26/2016 Constitutional No weight gain 03/26/2016 Eyes No eye erythema 03/26/2016 Eyes No eye discharge 03/26/2016 Ears/Nose/Throat/Neck nasal allergies 02/2016 Ears/Nose/Throat/Neck nasal discharge 02/2016 Ears/Nose/Throat/Neck sinus congestion Musculoskeletal joint complaint 2015 Cardiovascular No chest pain/pressure 02/2016 Cardiovascular edema 03/26/2016 Musculoskeletal joint complaint 2015 Constitutional No recent illness 2015 Constitutional No anorexia 01/27/2016 Constitutional No night sweats 2015 Constitutional No chills 01/27/2016 Constitutional No diaphoresis 01/27/2016 Constitutional No fatigue 01/27/2016 Constitutional No fever 01/27/2016 Constitutional No insomnia 01/27/2016 Constitutional No malaise 01/27/2016 Constitutional No weight loss 01/27/2016 Constitutional No weight gain 01/27/2016 Eyes No eye discharge 01/27/2016 Eyes No eye erythema 01/27/2016 Ears/Nose/Throat/Neck No dizziness 2015 Ears/Nose/Throat/Neck No headache 2015 Cardiovascular No chest pain/pressure 05/2016 Cardiovascular No dyspnea 01/27/2016 Cardiovascular No edema 01/27/2016 Respiratory No cough 01/27/2016 Gastrointestinal No abdominal pain 2015 Gastrointestinal No constipation 2015 Gastrointestinal No diarrhea 01/27/2016 Genitourinary/Nephrology No dysuria 01/26 Dermatologic No rash 01/27/2016 Dermatologic No sores 01/27/2016 Neurologic No alteration of consciousness 01/27/2016 Psychiatric No anxiety 01/27/2016 Endocrine No hair loss 01/27/2016 Hematologic/Lymphatic No abnormal ecchymoses 01/27/2016 Constitutional No recent illness 2015 Constitutional No anorexia 10/28/2015 Constitutional No night sweats 2015 Constitutional No chills 10/28/2015 Constitutional No diaphoresis 10/28/2015 Constitutional No fatigue 10/28/2015 Constitutional No fever 10/28/2015 Constitutional No insomnia 10/28/2015 Constitutional No malaise 10/28/2015 Constitutional No weight loss 10/28/2015 Constitutional No weight gain 10/28/2015 Constitutional No obesity 10/28/2015 Ears/Nose/Throat/Neck No headache 2015 Ears/Nose/Throat/Neck No otalgia 2015 Ears/Nose/Throat/Neck No otitis media 05/2016 Ears/Nose/Throat/Neck No sinus congestion 10/28/2015 Ears/Nose/Throat/Neck No sore throat 05/2016 Cardiovascular No chest pain/pressure 05/2016 Respiratory No chest congestion 2015 Respiratory No chest tightness 2015 Respiratory No cigarette smoking 2015 Respiratory No cough 10/28/2015 Respiratory No dyspnea on exertion 2015 Respiratory No dyspnea 10/28/2015 Gastrointestinal No constipation 2015 Gastrointestinal No diarrhea 10/28/2015 Genitourinary/Nephrology No dysuria 10/27 Musculoskeletal joint complaint 2015 Musculoskeletal muscle weakness 2015 Musculoskeletal No myalgias 10/28/2015 Dermatologic No rash 10/28/2015 Dermatologic No sores 10/28/2015 Neurologic No headache 10/28/2015 Neurologic paresthesia 10/28/2015 Eyes eye discharge 10/28/2015 Constitutional No recent illness 2015 Constitutional No anorexia 08/27/2015 Constitutional No night sweats 2015 Constitutional No chills 08/27/2015 Constitutional No diaphoresis 08/27/2015 Constitutional No fatigue 08/27/2015 Constitutional No fever 08/27/2015 Constitutional No insomnia 08/27/2015 Constitutional No malaise 08/27/2015 Constitutional No weight loss 08/27/2015 Constitutional No weight gain 08/27/2015 Constitutional No obesity 08/27/2015 Neurologic paresthesia 08/27/2015 Neurologic No headache 08/27/2015 Ears/Nose/Throat/Neck No headache 2015 Ears/Nose/Throat/Neck No otalgia 2015 Ears/Nose/Throat/Neck No otitis media 03/2016 Ears/Nose/Throat/Neck No sinus congestion 08/27/2015 Ears/Nose/Throat/Neck No sore throat 03/2016 Dermatologic No sores 08/27/2015 Dermatologic No rash 08/27/2015 Musculoskeletal No myalgias 08/27/2015 Musculoskeletal muscle weakness 2015 Musculoskeletal joint complaint 2015 Gastrointestinal No diarrhea 08/27/2015 Gastrointestinal No constipation 2015 Respiratory No cough 08/27/2015 Respiratory No cigarette smoking 2015 Respiratory No chest tightness 2015 Respiratory No chest congestion 2015 Respiratory No dyspnea 08/27/2015 Respiratory No dyspnea on exertion 2015 Genitourinary/Nephrology No dysuria 08/27 Cardiovascular No chest pain/pressure 03/2016 Constitutional No insomnia 06/06/2015 Constitutional No fever 06/06/2015 Constitutional No recent illness 2014 Constitutional No anorexia 06/06/2015 Constitutional No night sweats 2014 Constitutional No chills 06/06/2015 Constitutional No diaphoresis 06/06/2015 Constitutional No fatigue 06/06/2015 Constitutional No malaise 06/06/2015 Constitutional No weight loss 06/06/2015 Constitutional No weight gain 06/06/2015 Constitutional No obesity 06/06/2015 Eyes No vision change 06/06/2015 Eyes eye tearing 06/06/2015 Ears/Nose/Throat/Neck nasal allergies Ears/Nose/Throat/Neck nasal discharge Ears/Nose/Throat/Neck No headache 2014 Ears/Nose/Throat/Neck No otitis media Ears/Nose/Throat/Neck No otalgia 2014 Ears/Nose/Throat/Neck No sinus congestion 06/06/2015 Cardiovascular No chest pain/pressure Respiratory No chest congestion 2014 Respiratory No chest tightness 2014 Respiratory No cough 06/06/2015 Respiratory No cigarette smoking 2014 Gastrointestinal No constipation 2014 Gastrointestinal No abdominal pain 2014 Gastrointestinal diarrhea 06/06/2015 Genitourinary/Nephrology No dysuria 06/06 Musculoskeletal neck pain 06/06/2015 Dermatologic No rash 06/06/2015 Dermatologic No sores 06/06/2015 Psychiatric No anxiety 06/06/2015 Psychiatric No depression 06/06/2015 Neurologic No headache 06/06/2015 Endocrine diabetes mellitus type 2 2014 Constitutional No recent illness 2014 Constitutional No anorexia 04/30/2015 Constitutional No night sweats 2014 Constitutional No chills 04/30/2015 Constitutional No diaphoresis 04/30/2015 Constitutional No fatigue 04/30/2015 Constitutional No fever 04/30/2015 Constitutional No insomnia 04/30/2015 Constitutional No malaise 04/30/2015 Constitutional No weight loss 04/30/2015 Constitutional No weight gain 04/30/2015 Constitutional No obesity 04/30/2015 Eyes No vision change 04/30/2015 Ears/Nose/Throat/Neck No nasal allergies 04/30/2015 Ears/Nose/Throat/Neck No nasal discharge 04/30/2015 Cardiovascular No chest pain/pressure Respiratory No chest tightness 2014 Respiratory No chest congestion 2014 Respiratory No dyspnea on exertion 2014 Gastrointestinal No constipation 2014 Gastrointestinal No diarrhea 04/30/2015 Genitourinary/Nephrology No dysuria 04/30 Musculoskeletal joint complaint 2014 Musculoskeletal muscle weakness 2014 Musculoskeletal myalgias 04/30/2015 Musculoskeletal neck pain 04/30/2015 Neurologic paresthesia 04/30/2015 Neurologic neck pain 04/30/2015 Dermatologic ecchymosis 04/30/2015 Constitutional No recent illness 2014 Constitutional No anorexia 04/23/2015 Constitutional No night sweats 2014 Constitutional No chills 04/23/2015 Constitutional No diaphoresis 04/23/2015 Constitutional No fatigue 04/23/2015 Constitutional No fever 04/23/2015 Constitutional No insomnia 04/23/2015 Constitutional No malaise 04/23/2015 Constitutional No weight loss 04/23/2015 Constitutional No weight gain 04/23/2015 Eyes No eye discharge 04/23/2015 Eyes No eye erythema 04/23/2015 Ears/Nose/Throat/Neck No dizziness 2014 Ears/Nose/Throat/Neck No headache 2014 Cardiovascular No chest pain/pressure 12/2014 Cardiovascular No edema 04/23/2015 Respiratory No productive sputum 2014 Respiratory No cough 04/23/2015 Gastrointestinal No abdominal pain 2014 Gastrointestinal No constipation 2014 Gastrointestinal No diarrhea 04/23/2015 Genitourinary/Nephrology No dysuria 04/23 Musculoskeletal back pain 04/23/2015 Dermatologic No rash 04/23/2015 Neurologic No alteration of consciousness 04/23/2015 Psychiatric No depression 04/23/2015 Musculoskeletal joint complaint 2014 Musculoskeletal neck pain 04/23/2015 Ears/Nose/Throat/Neck No nasal discharge 04/23/2015 Musculoskeletal back pain 03/04/2015 Musculoskeletal joint complaint 2014 Constitutional No anorexia 03/04/2015 Constitutional No recent illness 2014 Constitutional No night sweats 2014 Constitutional No chills 03/04/2015 Constitutional No diaphoresis 03/04/2015 Constitutional No fatigue 03/04/2015 Constitutional No fever 03/04/2015 Constitutional No insomnia 03/04/2015 Constitutional No malaise 03/04/2015 Constitutional No weight loss 03/04/2015 Constitutional No weight gain 03/04/2015 Eyes No eye discharge 03/04/2015 Eyes No eye erythema 03/04/2015 Ears/Nose/Throat/Neck No dizziness 2014 Ears/Nose/Throat/Neck No headache 2014 Cardiovascular No chest pain/pressure Cardiovascular No edema 03/04/2015 Respiratory No productive sputum 2014 Respiratory No cough 03/04/2015 Gastrointestinal No abdominal pain 2014 Gastrointestinal No constipation 2014 Gastrointestinal No diarrhea 03/04/2015 Genitourinary/Nephrology No dysuria 03/04 Dermatologic No rash 03/04/2015 Neurologic No alteration of consciousness 03/04/2015 Psychiatric No depression 03/04/2015 Constitutional No recent illness 2014 Constitutional No anorexia 12/04/2014 Constitutional No night sweats 2014 Constitutional No chills 12/04/2014 Constitutional No diaphoresis 12/04/2014 Constitutional No fatigue 12/04/2014 Constitutional No fever 12/04/2014 Constitutional No insomnia 12/04/2014 Constitutional No malaise 12/04/2014 Constitutional No weight gain 12/04/2014 Constitutional No weight loss 12/04/2014 Eyes No eye discharge 12/04/2014 Eyes No eye erythema 12/04/2014 Ears/Nose/Throat/Neck No dizziness 2014 Ears/Nose/Throat/Neck No headache 2014 Cardiovascular No chest pain/pressure Cardiovascular No dyspnea 12/04/2014 Respiratory No productive sputum 2014 Respiratory No chest congestion 2014 Respiratory No cough 12/04/2014 Gastrointestinal No diarrhea 12/04/2014 Gastrointestinal No constipation 2014 Gastrointestinal No abdominal pain 2014 Ears/Nose/Throat/Neck nasal allergies Genitourinary/Nephrology No dysuria 12/04 Musculoskeletal joint complaint 2014 Dermatologic No rash 12/04/2014 Dermatologic No sores 12/04/2014 Neurologic No alteration of consciousness 12/04/2014 Psychiatric No anxiety 12/04/2014 Psychiatric No depression 12/04/2014 Endocrine No dry or coarse skin 2014 Hematologic/Lymphatic abnormal bleeding and bruising 12/04/2014 Physical Exam Exam Name System Name Item Name Status Result Effective Dates Notes Full Exam - General 1994 Constitutional general appearance Development: well developed 03/03/2018 None Full Exam - General 1994 Constitutional general appearance Development: appears stated age 0803/03/2018 None Full Exam - General 1994 Eyes conjunctiva /eyelids Overall: conjunctiva clear 03/03/2018 None Full Exam - General 1994 Eyes conjunctiva /eyelids Overall: cornea clear 03/03/2018 None Full Exam - General 1994 Eyes conjunctiva /eyelids Overall: eyelids normal 03/03/2018 None Full Exam - General 1994 Eyes pupils and irises Overall: pupils equal, round, reactive to light and accomodation 03/03/2018 None Full Exam - General 1994 Ears/Nose/Throat otoscopic exam Overall: external auditory canals clear 03/03/2018 None Full Exam - General 1994 Ears/Nose/Throat otoscopic exam Overall: tympanic membranes clear 03/03/2018 None Full Exam - General 1994 Ears/Nose/Throat lips/teeth/gingiva Overall: benign lips 03/03/2018 None Full Exam - General 1994 Ears/Nose/Throat oral cavity/pharynx/larynx Overall: oral mucosa clear 03/03/2018 None Full Exam - General 1994 Respiratory auscultation Overall: breath sounds clear bilaterally 03/03/2018 None Full Exam - General 1994 Respiratory respiratory effort/rhythm Overall: no retractions 03/03/2018 None Full Exam - General 1994 Respiratory respiratory effort/rhythm Overall: normal rate 03/03/2018 None Full Exam - General 1994 Cardiovascular extremities Overall: no clubbing 03/03/2018 None Full Exam - General 1994 Cardiovascular auscultation of heart Overall: regular rate 03/03/2018 None Full Exam - General 1994 Cardiovascular auscultation of heart Overall: normal heart sounds 03/03/2018 None Full Exam - General 1994 Cardiovascular auscultation of heart Overall: no murmurs 03/03/2018 None Full Exam - General 1994 Abdomen abdominal exam Overall: no tenderness 03/03/2018 None Full Exam - General 1994 Abdomen abdominal exam Overall: normal bowel sounds 03/03/2018 None Full Exam - General 1994 Musculoskeletal gait and station Overall: normal gait 03/03/2018 None Full Exam - General 1994 Musculoskeletal gait and station Overall: normal station 03/03/2018 None Full Exam - General 1994 Musculoskeletal head and neck Overall: head atraumatic 03/03/2018 None Full Exam - General 1994 Musculoskeletal head and neck Overall: cervical spine benign 03/03/2018 None Full Exam - General 1994 Integument inspection of skin Overall: few scattered moles, no gross abnormalities 03/03/2018 None Full Exam - General 1994 Neurologic sensation Touch: (specify location of deficit): two-point discrimination decreased 03/03/2018 None Full Exam - General 1994 Neurologic mental status Overall: alert 03/03/2018 None Full Exam - General 1994 Neurologic mental status Overall: oriented 03/03/2018 None Full Exam - General 1994 Neurologic gait Overall: no ataxia, no unsteadiness 03/03/2018 None Full Exam - General 1994 Neurologic motor Overall: normal bulk, tone 03/03/2018 None Full Exam - General 1994 Psychiatric orientation/consciousness Overall: oriented to person, place and time 03/03/2018 None Full Exam - General 1994 Psychiatric mood and affect Overall: normal mood and affect 03/03/2018 None Full Exam - General 1994 Psychiatric appearance Overall: well-groomed, good eye contact 03/03/2018 None Full Exam - General 1994 Psychiatric speech Overall: normal quality, no aphasia 03/03/2018 None Full Exam - General 1994 Constitutional general appearance Development: well developed 01/10/2018 None Full Exam - General 1994 Constitutional general appearance Development: appears stated age 0601/10/2018 None Full Exam - General 1994 Eyes conjunctiva /eyelids Overall: conjunctiva clear 01/10/2018 None Full Exam - General 1994 Eyes conjunctiva /eyelids Overall: cornea clear 01/10/2018 None Full Exam - General 1994 Eyes conjunctiva /eyelids Overall: eyelids normal 01/10/2018 None Full Exam - General 1994 Eyes pupils and irises Overall: pupils equal, round, reactive to light and accomodation 01/10/2018 None Full Exam - General 1994 Ears/Nose/Throat otoscopic exam Overall: external auditory canals clear 01/10/2018 None Full Exam - General 1994 Ears/Nose/Throat otoscopic exam Overall: tympanic membranes clear 01/10/2018 None Full Exam - General 1994 Ears/Nose/Throat lips/teeth/gingiva Overall: benign lips 01/10/2018 None Full Exam - General 1994 Ears/Nose/Throat oral cavity/pharynx/larynx Overall: oral mucosa clear 01/10/2018 None Full Exam - General 1994 Respiratory auscultation Overall: breath sounds clear bilaterally 01/10/2018 None Full Exam - General 1994 Respiratory respiratory effort/rhythm Overall: no retractions 01/10/2018 None Full Exam - General 1994 Respiratory respiratory effort/rhythm Overall: normal rate 01/10/2018 None Full Exam - General 1994 Cardiovascular extremities Overall: no clubbing 01/10/2018 None Full Exam - General 1994 Cardiovascular auscultation of heart Overall: regular rate 01/10/2018 None Full Exam - General 1994 Cardiovascular auscultation of heart Overall: normal heart sounds 01/10/2018 None Full Exam - General 1994 Cardiovascular auscultation of heart Overall: no murmurs 01/10/2018 None Full Exam - General 1994 Abdomen abdominal exam Overall: no tenderness 01/10/2018 None Full Exam - General 1994 Abdomen abdominal exam Overall: normal bowel sounds 01/10/2018 None Full Exam - General 1994 Musculoskeletal gait and station Overall: normal gait 01/10/2018 None Full Exam - General 1994 Musculoskeletal gait and station Overall: normal station 01/10/2018 None Full Exam - General 1994 Musculoskeletal head and neck Overall: head atraumatic 01/10/2018 None Full Exam - General 1994 Musculoskeletal head and neck Overall: cervical spine benign 01/10/2018 None Full Exam - General 1994 Integument inspection of skin Overall: few scattered moles, no gross abnormalities 01/10/2018 None Full Exam - General 1994 Neurologic sensation Touch: (specify location of deficit): two-point discrimination decreased 01/10/2018 None Full Exam - General 1994 Neurologic mental status Overall: alert 01/10/2018 None Full Exam - General 1994 Neurologic mental status Overall: oriented 01/10/2018 None Full Exam - General 1994 Neurologic gait Overall: no ataxia, no unsteadiness 01/10/2018 None Full Exam - General 1994 Neurologic motor Overall: normal bulk, tone 01/10/2018 None Full Exam - General 1994 Psychiatric orientation/consciousness Overall: oriented to person, place and time 01/10/2018 None Full Exam - General 1994 Psychiatric mood and affect Overall: normal mood and affect 01/10/2018 None Full Exam - General 1994 Psychiatric appearance Overall: well-groomed, good eye contact 01/10/2018 None Full Exam - General 1994 Psychiatric speech Overall: normal quality, no aphasia 01/10/2018 None Full Exam - Dermatology Constitutional general appearance Overall: well nourished 12/16/2017 None Full Exam - Dermatology Constitutional general appearance Overall: well developed 12/16/2017 None Full Exam - Dermatology Constitutional general appearance Overall: in no acute distress 12/16/2017 None Full Exam - Dermatology Constitutional general appearance Overall: of normal body habitus 12/16/2017 None Full Exam - Dermatology Constitutional general appearance Overall: well groomed 12/16/2017 None Full Exam - Dermatology Psychiatric orientation Overall: oriented to person, place and time 12/16/2017 None Full Exam - Dermatology Integument insp & palp - left upper extremity Location: on the forearm 12/16/2017 4cm superficial laceration left forearm -unable to re-approximate wound edges -wound cleansed and medihoney with non stick dressing applied -no redness or drainage noted Full Exam - General 1994 Eyes conjunctiva /eyelids Overall: conjunctiva clear 10/13/2017 None Full Exam - General 1994 Eyes conjunctiva /eyelids Overall: cornea clear 10/13/2017 None Full Exam - General 1994 Eyes conjunctiva /eyelids Overall: eyelids normal 10/13/2017 None Full Exam - General 1994 Eyes pupils and irises Overall: pupils equal, round, reactive to light and accomodation 10/13/2017 None Full Exam - General 1994 Ears/Nose/Throat otoscopic exam Overall: external auditory canals clear 10/13/2017 None Full Exam - General 1994 Ears/Nose/Throat otoscopic exam Overall: tympanic membranes clear 10/13/2017 None Full Exam - General 1994 Ears/Nose/Throat lips/teeth/gingiva Overall: benign lips 10/13/2017 None Full Exam - General 1994 Ears/Nose/Throat oral cavity/pharynx/larynx Overall: oral mucosa clear 10/13/2017 None Full Exam - General 1994 Respiratory auscultation Overall: breath sounds clear bilaterally 10/13/2017 None Full Exam - General 1994 Respiratory respiratory effort/rhythm Overall: no retractions 10/13/2017 None Full Exam - General 1994 Respiratory respiratory effort/rhythm Overall: normal rate 10/13/2017 None Full Exam - General 1994 Cardiovascular extremities Overall: no clubbing 10/13/2017 None Full Exam - General 1994 Cardiovascular auscultation of heart Overall: regular rate 10/13/2017 None Full Exam - General 1994 Cardiovascular auscultation of heart Overall: normal heart sounds 10/13/2017 None Full Exam - General 1994 Cardiovascular auscultation of heart Overall: no murmurs 10/13/2017 None Full Exam - General 1994 Abdomen abdominal exam Overall: normal bowel sounds 10/13/2017 None Full Exam - General 1994 Musculoskeletal gait and station Overall: normal gait 10/13/2017 None Full Exam - General 1994 Musculoskeletal gait and station Overall: normal station 10/13/2017 None Full Exam - General 1994 Musculoskeletal head and neck Overall: head atraumatic 10/13/2017 None Full Exam - General 1994 Musculoskeletal head and neck Overall: cervical spine benign 10/13/2017 None Full Exam - General 1994 Neurologic mental status Overall: alert 10/13/2017 None Full Exam - General 1994 Neurologic mental status Overall: oriented 10/13/2017 None Full Exam - General 1994 Neurologic gait Overall: no ataxia, no unsteadiness 10/13/2017 None Full Exam - General 1994 Neurologic motor Overall: normal bulk, tone 10/13/2017 None Full Exam - General 1994 Psychiatric orientation/consciousness Overall: oriented to person, place and time 10/13/2017 None Full Exam - General 1994 Psychiatric mood and affect Overall: normal mood and affect 10/13/2017 None Full Exam - General 1994 Psychiatric appearance Overall: well-groomed, good eye contact 10/13/2017 None Full Exam - General 1994 Psychiatric speech Overall: normal quality, no aphasia 10/13/2017 None Full Exam - General 1994 Constitutional general appearance Overall: well developed 10/13/2017 None Full Exam - General 1994 Constitutional general appearance Overall: in no acute distress 10/13/2017 None Full Exam - General 1994 Constitutional general appearance Overall: well nourished 10/13/2017 None Full Exam - General 1994 Neurologic cranial nerves Overall: crainial nerves 2 - 12 grossly intact 10/13/2017 None Full Exam - General 1994 Neurologic coordination Overall: no dysdiadochokinesis, no dysmetria 10/13/2017 None Full Exam - General 1994 Neurologic coordination Overall: no tremors 10/13/2017 None Full Exam - General 1994 Psychiatric thought Overall: normal form and content 10/13/2017 None Full Exam - General 1994 Psychiatric cognition/memory Overall: immediate, recent, remote memory intact 10/13/2017 None Full Exam - General 1994 Psychiatric judgment/insight Overall: judgment and insight intact 10/13/2017 None Full Exam - General 1994 Constitutional general appearance Development: well developed 10/04/2017 None Full Exam - General 1994 Constitutional general appearance Development: appears stated age 0310/04/2017 None Full Exam - General 1994 Eyes conjunctiva /eyelids Overall: conjunctiva clear 10/04/2017 None Full Exam - General 1994 Eyes conjunctiva /eyelids Overall: cornea clear 10/04/2017 None Full Exam - General 1994 Eyes conjunctiva /eyelids Overall: eyelids normal 10/04/2017 None Full Exam - General 1994 Eyes pupils and irises Overall: pupils equal, round, reactive to light and accomodation 10/04/2017 None Full Exam - General 1994 Ears/Nose/Throat lips/teeth/gingiva Overall: benign lips 10/04/2017 None Full Exam - General 1994 Ears/Nose/Throat oral cavity/pharynx/larynx Overall: oral mucosa clear 10/04/2017 None Full Exam - General 1994 Respiratory auscultation Overall: breath sounds clear bilaterally 10/04/2017 None Full Exam - General 1994 Respiratory respiratory effort/rhythm Overall: no retractions 10/04/2017 None Full Exam - General 1994 Respiratory respiratory effort/rhythm Overall: normal rate 10/04/2017 None Full Exam - General 1994 Cardiovascular extremities Overall: no clubbing 10/04/2017 None Full Exam - General 1994 Cardiovascular auscultation of heart Overall: regular rate 10/04/2017 None Full Exam - General 1994 Cardiovascular auscultation of heart Overall: normal heart sounds 10/04/2017 None Full Exam - General 1994 Cardiovascular auscultation of heart Overall: no murmurs 10/04/2017 None Full Exam - General 1994 Musculoskeletal gait and station Overall: normal gait 10/04/2017 None Full Exam - General 1994 Musculoskeletal gait and station Overall: normal station 10/04/2017 None Full Exam - General 1994 Musculoskeletal head and neck Overall: head atraumatic 10/04/2017 None Full Exam - General 1994 Musculoskeletal head and neck Overall: cervical spine benign 10/04/2017 None Full Exam - General 1994 Integument inspection of skin Overall: few scattered moles, no gross abnormalities 10/04/2017 None Full Exam - General 1994 Neurologic mental status Overall: alert 10/04/2017 None Full Exam - General 1994 Neurologic mental status Overall: oriented 10/04/2017 None Full Exam - General 1994 Neurologic gait Overall: no ataxia, no unsteadiness 10/04/2017 None Full Exam - General 1994 Neurologic motor Overall: normal bulk, tone 10/04/2017 None Full Exam - General 1994 Psychiatric orientation/consciousness Overall: oriented to person, place and time 10/04/2017 None Full Exam - General 1994 Psychiatric mood and affect Overall: normal mood and affect 10/04/2017 None Full Exam - General 1994 Psychiatric appearance Overall: well-groomed, good eye contact 10/04/2017 None Full Exam - General 1994 Psychiatric speech Overall: normal quality, no aphasia 10/04/2017 None Full Exam - General 1994 Abdomen abdominal exam Overall: no tenderness 10/04/2017 None Full Exam - General 1994 Abdomen abdominal exam Overall: normal bowel sounds 10/04/2017 None Full Exam - General 1994 Ears/Nose/Throat otoscopic exam Overall: external auditory canals clear 10/04/2017 None Full Exam - General 1994 Ears/Nose/Throat otoscopic exam Overall: tympanic membranes clear 10/04/2017 None Full Exam - General 1994 Neurologic sensation Touch: (specify location of deficit): two-point discrimination decreased 10/04/2017 None Full Exam - General 1994 Constitutional general appearance Development: well developed 09/01/2017 None Full Exam - General 1994 Constitutional general appearance Development: appears stated age 0209/01/2017 None Full Exam - General 1994 Eyes conjunctiva /eyelids Overall: conjunctiva clear 09/01/2017 None Full Exam - General 1994 Eyes conjunctiva /eyelids Overall: cornea clear 09/01/2017 None Full Exam - General 1994 Eyes conjunctiva /eyelids Overall: eyelids normal 09/01/2017 None Full Exam - General 1994 Eyes pupils and irises Overall: pupils equal, round, reactive to light and accomodation 09/01/2017 None Full Exam - General 1994 Ears/Nose/Throat lips/teeth/gingiva Overall: benign lips 09/01/2017 None Full Exam - General 1994 Ears/Nose/Throat oral cavity/pharynx/larynx Overall: oral mucosa clear 09/01/2017 None Full Exam - General 1994 Respiratory auscultation Overall: breath sounds clear bilaterally 09/01/2017 None Full Exam - General 1994 Respiratory respiratory effort/rhythm Overall: no retractions 09/01/2017 None Full Exam - General 1994 Respiratory respiratory effort/rhythm Overall: normal rate 09/01/2017 None Full Exam - General 1994 Cardiovascular extremities Overall: no clubbing 09/01/2017 None Full Exam - General 1994 Cardiovascular auscultation of heart Overall: regular rate 09/01/2017 None Full Exam - General 1994 Cardiovascular auscultation of heart Overall: normal heart sounds 09/01/2017 None Full Exam - General 1994 Cardiovascular auscultation of heart Overall: no murmurs 09/01/2017 None Full Exam - General 1994 Musculoskeletal gait and station Overall: normal gait 09/01/2017 None Full Exam - General 1994 Musculoskeletal gait and station Overall: normal station 09/01/2017 None Full Exam - General 1994 Musculoskeletal head and neck Overall: head atraumatic 09/01/2017 None Full Exam - General 1994 Musculoskeletal head and neck Overall: cervical spine benign 09/01/2017 None Full Exam - General 1994 Integument inspection of skin Overall: few scattered moles, no gross abnormalities 09/01/2017 None Full Exam - General 1994 Neurologic mental status Overall: alert 09/01/2017 None Full Exam - General 1994 Neurologic mental status Overall: oriented 09/01/2017 None Full Exam - General 1994 Neurologic gait Overall: no ataxia, no unsteadiness 09/01/2017 None Full Exam - General 1994 Neurologic motor Overall: normal bulk, tone 09/01/2017 None Full Exam - General 1994 Psychiatric orientation/consciousness Overall: oriented to person, place and time 09/01/2017 None Full Exam - General 1994 Psychiatric mood and affect Overall: normal mood and affect 09/01/2017 None Full Exam - General 1994 Psychiatric appearance Overall: well-groomed, good eye contact 09/01/2017 None Full Exam - General 1994 Psychiatric speech Overall: normal quality, no aphasia 09/01/2017 None Full Exam - General 1994 Ears/Nose/Throat otoscopic exam External auditory canal: minimal cerumen 09/01/2017 None Full Exam - General 1994 Ears/Nose/Throat otoscopic exam External auditory canal: complete cerumen impaction 09/01/2017 None Full Exam - General 1994 Constitutional general appearance Overall: well developed 08/18/2017 None Full Exam - General 1994 Constitutional general appearance Overall: in no acute distress 08/18/2017 None Full Exam - General 1994 Constitutional general appearance Overall: well nourished 08/18/2017 None Full Exam - General 1995 Ears/Nose/Throat oral cavity/pharynx/larynx Overall: oral mucosa clear 08/18/2017 None Full Exam - General 1995 Ears/Nose/Throat oral cavity/pharynx/larynx Oropharynx: erythema 08/18/2017 None Full Exam - General 1994 Respiratory auscultation Upper lung field: diminished 08/18/2017 None Full Exam - General 1994 Respiratory auscultation Upper lung field: expiratory wheezes 08/18/2017 right greater than left Full Exam - General 1994 Respiratory auscultation Lower lung field: expiratory wheezes 08/18/2017 None Full Exam - General 1994 Lymphatic neck nodes Overall: shotty lymphadenopathy 08/18/2017 None Full Exam - General 1994 Psychiatric orientation/consciousness Overall: oriented to person, place and time 08/18/2017 None Full Exam - General 1994 Psychiatric mood and affect Overall: normal mood and affect 08/18/2017 None Full Exam - General 1994 Psychiatric mood and affect Mood: happy 08/18/2017 None Full Exam - General 1994 Ears/Nose/Throat otoscopic exam External auditory canal: partial cerumen occlusion 08/18/2017 None Full Exam - General 1994 Ears/Nose/Throat lips/teeth/gingiva Overall: benign lips 08/18/2017 None Full Exam - General 1994 Respiratory auscultation Lower lung field: diminished 08/18/2017 None Full Exam - General 1994 Respiratory respiratory effort/rhythm Overall: no retractions 08/18/2017 None Full Exam - General 1994 Respiratory respiratory effort/rhythm Overall: normal rate 08/18/2017 None Full Exam - General 1994 Neurologic cranial nerves Overall: crainial nerves 2 - 12 grossly intact 08/18/2017 None Full Exam - General 1994 Musculoskeletal head and neck Overall: head atraumatic 08/18/2017 None Full Exam - General 1994 Constitutional general appearance Overall: well nourished 08/03/2017 None Full Exam - General 1994 Constitutional general appearance Overall: well developed 08/03/2017 None Full Exam - General 1994 Constitutional general appearance Overall: in no acute distress 08/03/2017 None Full Exam - General 1994 Ears/Nose/Throat otoscopic exam External auditory canal: partial cerumen occlusion 08/03/2017 right greater than left Full Exam - General 1994 Ears/Nose/Throat oral cavity/pharynx/larynx Overall: oral mucosa clear 08/03/2017 None Full Exam - General 1994 Ears/Nose/Throat oral cavity/pharynx/larynx Oropharynx: erythema 08/03/2017 None Full Exam - General 1994 Respiratory auscultation Upper lung field: diminished 08/03/2017 None Full Exam - General 1994 Respiratory auscultation Upper lung field: expiratory wheezes 08/03/2017 None Full Exam - General 1994 Respiratory auscultation Lower lung field: expiratory wheezes 08/03/2017 None Full Exam - General 1994 Lymphatic neck nodes Overall: shotty lymphadenopathy 08/03/2017 None Full Exam - General 1994 Psychiatric orientation/consciousness Overall: oriented to person, place and time 08/03/2017 None Full Exam - General 1994 Psychiatric mood and affect Mood: happy 08/03/2017 None Full Exam - General 1994 Psychiatric mood and affect Overall: normal mood and affect 08/03/2017 None Full Exam - General 1994 Constitutional general appearance Development: well developed 07/05/2017 None Full Exam - General 1994 Constitutional general appearance Development: appears stated age 1207/05/2017 None Full Exam - General 1994 Eyes conjunctiva /eyelids Overall: conjunctiva clear 07/05/2017 None Full Exam - General 1994 Eyes conjunctiva /eyelids Overall: cornea clear 07/05/2017 None Full Exam - General 1994 Eyes conjunctiva /eyelids Overall: eyelids normal 07/05/2017 None Full Exam - General 1994 Eyes pupils and irises Overall: pupils equal, round, reactive to light and accomodation 07/05/2017 None Full Exam - General 1994 Ears/Nose/Throat otoscopic exam Overall: tympanic membranes clear 07/05/2017 None Full Exam - General 1994 Ears/Nose/Throat otoscopic exam External auditory canal: minimal cerumen 07/05/2017 None Full Exam - General 1994 Ears/Nose/Throat lips/teeth/gingiva Overall: benign lips 07/05/2017 None Full Exam - General 1994 Ears/Nose/Throat oral cavity/pharynx/larynx Overall: oral mucosa clear 07/05/2017 None Full Exam - General 1994 Respiratory auscultation Overall: breath sounds clear bilaterally 07/05/2017 None Full Exam - General 1994 Respiratory respiratory effort/rhythm Overall: no retractions 07/05/2017 None Full Exam - General 1994 Respiratory respiratory effort/rhythm Overall: normal rate 07/05/2017 None Full Exam - General 1994 Cardiovascular extremities Overall: no clubbing 07/05/2017 None Full Exam - General 1994 Cardiovascular auscultation of heart Overall: regular rate 07/05/2017 None Full Exam - General 1994 Cardiovascular auscultation of heart Overall: normal heart sounds 07/05/2017 None Full Exam - General 1994 Cardiovascular auscultation of heart Overall: no murmurs 07/05/2017 None Full Exam - General 1994 Musculoskeletal gait and station Overall: normal gait 07/05/2017 None Full Exam - General 1994 Musculoskeletal gait and station Overall: normal station 07/05/2017 None Full Exam - General 1994 Musculoskeletal head and neck Overall: head atraumatic 07/05/2017 None Full Exam - General 1994 Musculoskeletal head and neck Overall: cervical spine benign 07/05/2017 None Full Exam - General 1994 Integument inspection of skin Overall: few scattered moles, no gross abnormalities 07/05/2017 None Full Exam - General 1994 Neurologic mental status Overall: alert 07/05/2017 None Full Exam - General 1994 Neurologic mental status Overall: oriented 07/05/2017 None Full Exam - General 1994 Neurologic gait Overall: no ataxia, no unsteadiness 07/05/2017 None Full Exam - General 1994 Neurologic motor Overall: normal bulk, tone 07/05/2017 None Full Exam - General 1994 Psychiatric orientation/consciousness Overall: oriented to person, place and time 07/05/2017 None Full Exam - General 1994 Psychiatric mood and affect Overall: normal mood and affect 07/05/2017 None Full Exam - General 1994 Psychiatric appearance Overall: well-groomed, good eye contact 07/05/2017 None Full Exam - General 1994 Psychiatric speech Overall: normal quality, no aphasia 07/05/2017 None Full Exam - General 1994 Constitutional general appearance Development: well developed 04/23/2017 None Full Exam - General 1994 Constitutional general appearance Development: appears stated age 1004/23/2017 None Full Exam - General 1994 Eyes conjunctiva /eyelids Overall: conjunctiva clear 04/23/2017 None Full Exam - General 1994 Eyes conjunctiva /eyelids Overall: cornea clear 04/23/2017 None Full Exam - General 1994 Eyes conjunctiva /eyelids Overall: eyelids normal 04/23/2017 None Full Exam - General 1994 Eyes pupils and irises Overall: pupils equal, round, reactive to light and accomodation 04/23/2017 None Full Exam - General 1994 Ears/Nose/Throat otoscopic exam Overall: tympanic membranes clear 04/23/2017 None Full Exam - General 1994 Ears/Nose/Throat otoscopic exam External auditory canal: minimal cerumen 04/23/2017 None Full Exam - General 1994 Ears/Nose/Throat lips/teeth/gingiva Overall: benign lips 04/23/2017 None Full Exam - General 1994 Ears/Nose/Throat oral cavity/pharynx/larynx Overall: oral mucosa clear 04/23/2017 None Full Exam - General 1994 Neck thyroid Overall: normal size 12/2016 None Full Exam - General 1994 Neck thyroid Overall: normal consistency 04/23/2017 None Full Exam - General 1994 Neck thyroid Overall: nontender 2016 None Full Exam - General 1994 Respiratory auscultation Overall: breath sounds clear bilaterally 04/23/2017 None Full Exam - General 1994 Respiratory respiratory effort/rhythm Overall: no retractions 04/23/2017 None Full Exam - General 1994 Respiratory respiratory effort/rhythm Overall: normal rate 04/23/2017 None Full Exam - General 1994 Cardiovascular extremities Overall: no clubbing 04/23/2017 None Full Exam - General 1994 Cardiovascular auscultation of heart Overall: regular rate 04/23/2017 None Full Exam - General 1994 Cardiovascular auscultation of heart Overall: normal heart sounds 04/23/2017 None Full Exam - General 1994 Cardiovascular auscultation of heart Overall: no murmurs 04/23/2017 None Full Exam - General 1994 Abdomen abdominal exam Overall: no tenderness 04/23/2017 None Full Exam - General 1994 Abdomen abdominal exam Overall: normal bowel sounds 04/23/2017 None Full Exam - General 1994 Lymphatic neck nodes Overall: anterior cervical chain benign 04/23/2017 None Full Exam - General 1994 Lymphatic neck nodes Overall: posterior cervical chain benign 04/23/2017 None Full Exam - General 1994 Musculoskeletal gait and station Overall: normal gait 04/23/2017 None Full Exam - General 1994 Musculoskeletal gait and station Overall: normal station 04/23/2017 None Full Exam - General 1994 Musculoskeletal head and neck Overall: head atraumatic 04/23/2017 None Full Exam - General 1994 Musculoskeletal head and neck Overall: cervical spine benign 04/23/2017 None Full Exam - General 1994 Integument inspection of skin Overall: few scattered moles, no gross abnormalities 04/23/2017 None Full Exam - General 1994 Neurologic mental status Overall: alert 04/23/2017 None Full Exam - General 1994 Neurologic mental status Overall: oriented 04/23/2017 None Full Exam - General 1994 Neurologic gait Overall: no ataxia, no unsteadiness 04/23/2017 None Full Exam - General 1994 Neurologic motor Overall: normal bulk, tone 04/23/2017 None Full Exam - General 1994 Psychiatric orientation/consciousness Overall: oriented to person, place and time 04/23/2017 None Full Exam - General 1994 Psychiatric mood and affect Overall: normal mood and affect 04/23/2017 None Full Exam - General 1994 Psychiatric appearance Overall: well-groomed, good eye contact 04/23/2017 None Full Exam - General 1994 Psychiatric speech Overall: normal quality, no aphasia 04/23/2017 None Full Exam - ENT Face and Head palpation Left maxillary sinus: tender 04/08/2017 mild Full Exam - ENT Face and Head palpation Right maxillary sinus: tender 04/08/2017 mild Full Exam - ENT Constitutional general appearance Overall: well nourished 04/08/2017 None Full Exam - ENT Constitutional general appearance Overall: well developed 04/08/2017 None Full Exam - ENT Constitutional general appearance Overall: in no acute distress 04/08/2017 None Full Exam - ENT Ears/Nose/Throat otoscopic exam Overall: external auditory canals normal 04/08/2017 None Full Exam - ENT Ears/Nose/Throat otoscopic exam Overall: tympanic membranes normal 04/08/2017 None Full Exam - ENT Ears/Nose/Throat oropharynx Overall: oral mucosa clear 04/08/2017 None Full Exam - ENT Respiratory inspection Overall: no retractions 04/08/2017 None Full Exam - ENT Respiratory inspection Overall: normal rate None Full Exam - ENT Respiratory auscultation Overall: breath sounds clear bilaterally 04/08/2017 None Full Exam - ENT Cardiovascular auscultation of heart Overall: regular rate 04/08/2017 None Full Exam - ENT Cardiovascular auscultation of heart Overall: normal heart sounds 04/08/2017 None Full Exam - ENT Integument inspection of skin Overall: no rash, lesions 04/08/2017 None Full Exam - ENT Neurologic orientation Overall: oriented to person, place and time 04/08/2017 None Full Exam - ENT Lymphatic palpation of lymph nodes Overall: posterior cervical chain benign 04/08/2017 None Full Exam - ENT Lymphatic palpation of lymph nodes Overall: anterior cervical chain benign 04/08/2017 None Full Exam - General 1994 Constitutional general appearance Development: well developed 01/21/2017 None Full Exam - General 1994 Constitutional general appearance Development: appears stated age 0701/21/2017 None Full Exam - General 1994 Eyes conjunctiva /eyelids Overall: conjunctiva clear 01/21/2017 None Full Exam - General 1994 Eyes conjunctiva /eyelids Overall: cornea clear 01/21/2017 None Full Exam - General 1994 Eyes conjunctiva /eyelids Overall: eyelids normal 01/21/2017 None Full Exam - General 1994 Eyes pupils and irises Overall: pupils equal, round, reactive to light and accomodation 01/21/2017 None Full Exam - General 1994 Ears/Nose/Throat otoscopic exam Overall: tympanic membranes clear 01/21/2017 None Full Exam - General 1994 Ears/Nose/Throat otoscopic exam External auditory canal: minimal cerumen 01/21/2017 None Full Exam - General 1994 Ears/Nose/Throat otoscopic exam External auditory canal: complete cerumen impaction 01/21/2017 None Full Exam - General 1994 Ears/Nose/Throat lips/teeth/gingiva Overall: benign lips 01/21/2017 None Full Exam - General 1994 Ears/Nose/Throat oral cavity/pharynx/larynx Overall: oral mucosa clear 01/21/2017 None Full Exam - General 1994 Neck thyroid Overall: normal size 12/2016 None Full Exam - General 1994 Neck thyroid Overall: normal consistency 01/21/2017 None Full Exam - General 1994 Neck thyroid Overall: nontender 2016 None Full Exam - General 1994 Respiratory auscultation Overall: breath sounds clear bilaterally 01/21/2017 None Full Exam - General 1994 Respiratory respiratory effort/rhythm Overall: no retractions 01/21/2017 None Full Exam - General 1994 Respiratory respiratory effort/rhythm Overall: normal rate 01/21/2017 None Full Exam - General 1994 Cardiovascular extremities Overall: no clubbing 01/21/2017 None Full Exam - General 1994 Cardiovascular auscultation of heart Overall: regular rate 01/21/2017 None Full Exam - General 1994 Cardiovascular auscultation of heart Overall: normal heart sounds 01/21/2017 None Full Exam - General 1994 Cardiovascular auscultation of heart Overall: no murmurs 01/21/2017 None Full Exam - General 1994 Abdomen abdominal exam Overall: no tenderness 01/21/2017 None Full Exam - General 1994 Abdomen abdominal exam Overall: normal bowel sounds 01/21/2017 None Full Exam - General 1994 Lymphatic neck nodes Overall: anterior cervical chain benign 01/21/2017 None Full Exam - General 1994 Lymphatic neck nodes Overall: posterior cervical chain benign 01/21/2017 None Full Exam - General 1994 Musculoskeletal gait and station Overall: normal gait 01/21/2017 None Full Exam - General 1994 Musculoskeletal gait and station Overall: normal station 01/21/2017 None Full Exam - General 1994 Musculoskeletal head and neck Overall: head atraumatic 01/21/2017 None Full Exam - General 1994 Musculoskeletal head and neck Overall: cervical spine benign 01/21/2017 None Full Exam - General 1994 Integument inspection of skin Overall: few scattered moles, no gross abnormalities 01/21/2017 None Full Exam - General 1994 Neurologic mental status Overall: alert 01/21/2017 None Full Exam - General 1994 Neurologic mental status Overall: oriented 01/21/2017 None Full Exam - General 1994 Neurologic gait Overall: no ataxia, no unsteadiness 01/21/2017 None Full Exam - General 1994 Neurologic motor Overall: normal bulk, tone 01/21/2017 None Full Exam - General 1994 Psychiatric orientation/consciousness Overall: oriented to person, place and time 01/21/2017 None Full Exam - General 1994 Psychiatric mood and affect Overall: normal mood and affect 01/21/2017 None Full Exam - General 1994 Psychiatric appearance Overall: well-groomed, good eye contact 01/21/2017 None Full Exam - General 1994 Psychiatric speech Overall: normal quality, no aphasia 01/21/2017 None Full Exam - General 1994 Constitutional general appearance Development: well developed 10/19/2016 None Full Exam - General 1994 Constitutional general appearance Development: appears stated age 0410/19/2016 None Full Exam - General 1994 Eyes conjunctiva /eyelids Overall: conjunctiva clear 10/19/2016 None Full Exam - General 1994 Eyes conjunctiva /eyelids Overall: cornea clear 10/19/2016 None Full Exam - General 1994 Eyes conjunctiva /eyelids Overall: eyelids normal 10/19/2016 None Full Exam - General 1994 Eyes pupils and irises Overall: pupils equal, round, reactive to light and accomodation 10/19/2016 None Full Exam - General 1994 Ears/Nose/Throat otoscopic exam External auditory canal: complete cerumen impaction 10/19/2016 None Full Exam - General 1994 Ears/Nose/Throat otoscopic exam External auditory canal: minimal cerumen 10/19/2016 None Full Exam - General 1994 Ears/Nose/Throat otoscopic exam Overall: tympanic membranes clear 10/19/2016 None Full Exam - General 1994 Ears/Nose/Throat lips/teeth/gingiva Overall: benign lips 10/19/2016 None Full Exam - General 1994 Ears/Nose/Throat oral cavity/pharynx/larynx Overall: oral mucosa clear 10/19/2016 None Full Exam - General 1994 Neck thyroid Overall: normal size 09/2016 None Full Exam - General 1994 Neck thyroid Overall: normal consistency 10/19/2016 None Full Exam - General 1994 Neck thyroid Overall: nontender 2016 None Full Exam - General 1994 Respiratory auscultation Overall: breath sounds clear bilaterally 10/19/2016 None Full Exam - General 1994 Respiratory respiratory effort/rhythm Overall: no retractions 10/19/2016 None Full Exam - General 1994 Respiratory respiratory effort/rhythm Overall: normal rate 10/19/2016 None Full Exam - General 1994 Cardiovascular extremities Overall: no clubbing 10/19/2016 None Full Exam - General 1994 Cardiovascular auscultation of heart Overall: regular rate 10/19/2016 None Full Exam - General 1994 Cardiovascular auscultation of heart Overall: normal heart sounds 10/19/2016 None Full Exam - General 1994 Cardiovascular auscultation of heart Overall: no murmurs 10/19/2016 None Full Exam - General 1994 Abdomen abdominal exam Overall: no tenderness 10/19/2016 None Full Exam - General 1994 Abdomen abdominal exam Overall: normal bowel sounds 10/19/2016 None Full Exam - General 1994 Lymphatic neck nodes Overall: anterior cervical chain benign 10/19/2016 None Full Exam - General 1994 Lymphatic neck nodes Overall: posterior cervical chain benign 10/19/2016 None Full Exam - General 1994 Neurologic mental status Overall: alert 10/19/2016 None Full Exam - General 1994 Neurologic mental status Overall: oriented 10/19/2016 None Full Exam - General 1994 Neurologic gait Overall: no ataxia, no unsteadiness 10/19/2016 None Full Exam - General 1994 Neurologic motor Overall: normal bulk, tone 10/19/2016 None Full Exam - General 1994 Psychiatric orientation/consciousness Overall: oriented to person, place and time 10/19/2016 None Full Exam - General 1994 Psychiatric mood and affect Overall: normal mood and affect 10/19/2016 None Full Exam - General 1994 Psychiatric appearance Overall: well-groomed, good eye contact 10/19/2016 None Full Exam - General 1994 Psychiatric speech Overall: normal quality, no aphasia 10/19/2016 None Full Exam - General 1994 Integument inspection of skin Overall: few scattered moles, no gross abnormalities 10/19/2016 None Full Exam - General 1994 Musculoskeletal gait and station Overall: normal gait 10/19/2016 None Full Exam - General 1994 Musculoskeletal gait and station Overall: normal station 10/19/2016 None Full Exam - General 1994 Musculoskeletal head and neck Overall: head atraumatic 10/19/2016 None Full Exam - General 1994 Musculoskeletal head and neck Overall: cervical spine benign 10/19/2016 None Full Exam - General 1994 Musculoskeletal lower extremity ROM - knee: decreased flexion 10/19/2016 None Full Exam - General 1994 Musculoskeletal lower extremity Palpation - knee: tender joint line 10/19/2016 None Full Exam - General 1994 Musculoskeletal lower extremity Inspection - lower leg: normal appearance 10/19/2016 None Full Exam - General 1994 Musculoskeletal lower extremity Palpation - knee: crepitus 10/19/2016 None Full Exam - General 1994 Constitutional general appearance Overall: well developed 07/23/2016 None Full Exam - General 1994 Constitutional general appearance Overall: in no acute distress 07/23/2016 None Full Exam - General 1994 Constitutional general appearance Overall: well nourished 07/23/2016 None Full Exam - General 1994 Eyes conjunctiva /eyelids Overall: conjunctiva clear 07/23/2016 None Full Exam - General 1994 Eyes conjunctiva /eyelids Overall: cornea clear 07/23/2016 None Full Exam - General 1994 Eyes conjunctiva /eyelids Overall: eyelids normal 07/23/2016 None Full Exam - General 1994 Eyes pupils and irises Overall: pupils equal, round, reactive to light and accomodation 07/23/2016 None Full Exam - General 1994 Ears/Nose/Throat external ear Overall: normal appearance 07/23/2016 None Full Exam - General 1994 Ears/Nose/Throat external ear Overall: no masses 07/23/2016 None Full Exam - General 1994 Ears/Nose/Throat external ear Overall: normal mastoids 07/23/2016 None Full Exam - General 1994 Ears/Nose/Throat otoscopic exam Overall: tympanic membranes clear 07/23/2016 None Full Exam - General 1994 Ears/Nose/Throat otoscopic exam External auditory canal: partial cerumen occlusion 07/23/2016 None Full Exam - General 1994 Ears/Nose/Throat otoscopic exam External auditory canal: nontender 07/23/2016 None Full Exam - General 1995 Ears/Nose/Throat lips/teeth/gingiva Overall: benign lips 07/23/2016 None Full Exam - General 1995 Ears/Nose/Throat lips/teeth/gingiva Overall: normal dentition 07/23/2016 None Full Exam - General 1994 Ears/Nose/Throat lips/teeth/gingiva Overall: benign gingiva 07/23/2016 None Full Exam - General 1995 Ears/Nose/Throat lips/teeth/gingiva Overall: no masses 07/23/2016 None Full Exam - General 1994 Ears/Nose/Throat oral cavity/pharynx/larynx Overall: oral mucosa clear 07/23/2016 None Full Exam - General 1995 Ears/Nose/Throat oral cavity/pharynx/larynx Overall: oropharyngeal mucosa clear 07/23/2016 None Full Exam - General 1994 Ears/Nose/Throat oral cavity/pharynx/larynx Overall: no masses 07/23/2016 None Full Exam - General 1994 Neck inspection of neck Overall: normal size 07/23/2016 None Full Exam - General 1994 Neck inspection of neck Overall: normal appearance 07/23/2016 None Full Exam - General 1994 Neck inspection of neck Overall: no masses 07/23/2016 None Full Exam - General 1994 Neck inspection of neck Overall: absence of swelling 07/23/2016 None Full Exam - General 1994 Respiratory auscultation Overall: breath sounds clear bilaterally 07/23/2016 None Full Exam - General 1994 Respiratory respiratory effort/rhythm Overall: no retractions 07/23/2016 None Full Exam - General 1994 Respiratory respiratory effort/rhythm Overall: normal rate 07/23/2016 None Full Exam - General 1994 Cardiovascular extremities Overall: no clubbing 07/23/2016 None Full Exam - General 1994 Cardiovascular auscultation of heart Overall: regular rate 07/23/2016 None Full Exam - General 1994 Cardiovascular auscultation of heart Overall: normal heart sounds 07/23/2016 None Full Exam - General 1994 Cardiovascular auscultation of heart Overall: no murmurs 07/23/2016 None Full Exam - General 1994 Abdomen abdominal exam Overall: no tenderness 07/23/2016 None Full Exam - General 1994 Abdomen abdominal exam Overall: normal bowel sounds 07/23/2016 None Full Exam - General 1994 Musculoskeletal head and neck Overall: head atraumatic 07/23/2016 None Full Exam - General 1994 Psychiatric orientation/consciousness Overall: oriented to person, place and time 07/23/2016 None Full Exam - General 1994 Psychiatric behavior/psychomotor activity Overall: no tics, normal psychomotor activity 07/23/2016 None Full Exam - General 1994 Psychiatric mood and affect Overall: normal mood and affect 07/23/2016 None Full Exam - General 1994 Psychiatric appearance Overall: well-groomed, good eye contact 07/23/2016 None Full Exam - ENT Constitutional general appearance Overall: well nourished 05/19/2016 None Full Exam - ENT Constitutional general appearance Overall: well developed 05/19/2016 None Full Exam - ENT Constitutional general appearance Overall: in no acute distress 05/19/2016 None Full Exam - ENT Neurologic orientation Overall: oriented to person, place and time 05/19/2016 None Full Exam - ENT Integument inspection of skin Overall: no rash, lesions 05/19/2016 None Full Exam - ENT Lymphatic palpation of lymph nodes Overall: shotty lymphadenopathy 05/19/2016 None Full Exam - ENT Cardiovascular auscultation of heart Overall: regular rate 05/19/2016 None Full Exam - ENT Cardiovascular auscultation of heart Overall: normal heart sounds 05/19/2016 None Full Exam - ENT Respiratory inspection Overall: no retractions 05/19/2016 None Full Exam - ENT Respiratory inspection Overall: normal rate 07/2015 None Full Exam - ENT Respiratory auscultation Overall: breath sounds clear bilaterally 05/19/2016 None Full Exam - ENT Face and Head palpation Left maxillary sinus: tender 05/19/2016 None Full Exam - ENT Face and Head palpation Right maxillary sinus: tender 05/19/2016 None Full Exam - ENT Ears/Nose/Throat otoscopic exam Overall: external auditory canals normal 05/19/2016 None Full Exam - ENT Ears/Nose/Throat otoscopic exam Overall: tympanic membranes normal 05/19/2016 None Full Exam - ENT Ears/Nose/Throat oropharynx Overall: oral mucosa clear 05/19/2016 None Full Exam - General 1994 Constitutional general appearance Overall: well developed 04/21/2016 None Full Exam - General 1994 Constitutional general appearance Overall: in no acute distress 04/21/2016 None Full Exam - General 1994 Constitutional general appearance Overall: well nourished 04/21/2016 None Full Exam - General 1994 Eyes conjunctiva /eyelids Overall: conjunctiva clear 04/21/2016 None Full Exam - General 1994 Eyes conjunctiva /eyelids Overall: cornea clear 04/21/2016 None Full Exam - General 1994 Eyes conjunctiva /eyelids Overall: eyelids normal 04/21/2016 None Full Exam - General 1994 Eyes pupils and irises Overall: pupils equal, round, reactive to light and accomodation 04/21/2016 None Full Exam - General 1994 Ears/Nose/Throat external ear Overall: normal appearance 04/21/2016 None Full Exam - General 1994 Ears/Nose/Throat external ear Overall: no masses 04/21/2016 None Full Exam - General 1994 Ears/Nose/Throat external ear Overall: normal mastoids 04/21/2016 None Full Exam - General 1994 Ears/Nose/Throat otoscopic exam Overall: tympanic membranes clear 04/21/2016 None Full Exam - General 1994 Ears/Nose/Throat otoscopic exam External auditory canal: partial cerumen occlusion 04/21/2016 None Full Exam - General 1994 Ears/Nose/Throat otoscopic exam External auditory canal: nontender 04/21/2016 None Full Exam - General 1994 Ears/Nose/Throat lips/teeth/gingiva Overall: benign lips 04/21/2016 None Full Exam - General 1994 Ears/Nose/Throat lips/teeth/gingiva Overall: normal dentition 04/21/2016 None Full Exam - General 1994 Ears/Nose/Throat lips/teeth/gingiva Overall: benign gingiva 04/21/2016 None Full Exam - General 1994 Ears/Nose/Throat lips/teeth/gingiva Overall: no masses 04/21/2016 None Full Exam - General 1994 Ears/Nose/Throat oral cavity/pharynx/larynx Overall: oral mucosa clear 04/21/2016 None Full Exam - General 1994 Ears/Nose/Throat oral cavity/pharynx/larynx Overall: oropharyngeal mucosa clear 04/21/2016 None Full Exam - General 1994 Ears/Nose/Throat oral cavity/pharynx/larynx Overall: no masses 04/21/2016 None Full Exam - General 1994 Neck inspection of neck Overall: normal size 04/21/2016 None Full Exam - General 1994 Neck inspection of neck Overall: normal appearance 04/21/2016 None Full Exam - General 1994 Neck inspection of neck Overall: no masses 04/21/2016 None Full Exam - General 1994 Neck inspection of neck Overall: absence of swelling 04/21/2016 None Full Exam - General 1994 Respiratory auscultation Overall: breath sounds clear bilaterally 04/21/2016 None Full Exam - General 1994 Respiratory respiratory effort/rhythm Overall: no retractions 04/21/2016 None Full Exam - General 1994 Respiratory respiratory effort/rhythm Overall: normal rate 04/21/2016 None Full Exam - General 1994 Cardiovascular extremities Overall: no clubbing 04/21/2016 None Full Exam - General 1994 Cardiovascular auscultation of heart Overall: regular rate 04/21/2016 None Full Exam - General 1994 Cardiovascular auscultation of heart Overall: normal heart sounds 04/21/2016 None Full Exam - General 1994 Cardiovascular auscultation of heart Overall: no murmurs 04/21/2016 None Full Exam - General 1994 Abdomen abdominal exam Overall: no tenderness 04/21/2016 None Full Exam - General 1994 Abdomen abdominal exam Overall: normal bowel sounds 04/21/2016 None Full Exam - General 1994 Musculoskeletal head and neck Overall: head atraumatic 04/21/2016 None Full Exam - General 1994 Psychiatric orientation/consciousness Overall: oriented to person, place and time 04/21/2016 None Full Exam - General 1994 Psychiatric behavior/psychomotor activity Overall: no tics, normal psychomotor activity 04/21/2016 None Full Exam - General 1994 Psychiatric mood and affect Overall: normal mood and affect 04/21/2016 None Full Exam - General 1994 Psychiatric appearance Overall: well-groomed, good eye contact 04/21/2016 None Full Exam - Orthopedics Constitutional general appearance Overall: well nourished 03/26/2016 None Full Exam - Orthopedics Constitutional general appearance Overall: well developed 03/26/2016 None Full Exam - Orthopedics Constitutional general appearance Overall: in no acute distress 03/26/2016 None Full Exam - Orthopedics Constitutional general appearance Overall: normal body habitus 03/26/2016 None Full Exam - Orthopedics Constitutional general appearance Overall: no deformities 03/26/2016 None Full Exam - Orthopedics Constitutional general appearance Overall: well groomed 03/26/2016 None Full Exam - Orthopedics Constitutional general appearance Overall: no assistive devices 03/26/2016 None Full Exam - Orthopedics Constitutional general appearance Overall: atraumatic 03/26/2016 None Full Exam - Orthopedics Constitutional general appearance Overall: cooperative 03/26/2016 None Full Exam - Orthopedics Constitutional general appearance Overall: healthy appearance 03/26/2016 None Full Exam - Orthopedics Constitutional general appearance Overall: pleasant 03/26/2016 None Full Exam - Orthopedics Constitutional general appearance Overall: relaxed 03/26/2016 None Full Exam - Orthopedics Psychiatric orientation/consciousness Overall: oriented to person, place and time 03/26/2016 None Full Exam - Orthopedics MS: left lower extremity insp & palp - LLE Knee: normal appearance 03/26/2016 None Full Exam - Orthopedics Cardiovascular examination of vasculature Overall: good capillary refill 03/26/2016 None Full Exam - Orthopedics Cardiovascular examination of vasculature Overall: warm extremities 03/26/2016 2+ pitting edema L> R Full Exam - Orthopedics MS: left lower extremity range of motion - LLE Overall: full range of motion in knee 03/26/2016 None Full Exam - Orthopedics MS: left lower extremity stability - LLE Overall: knee, ankle and foot stable 03/26/2016 None Full Exam - Orthopedics MS: left lower extremity strength & tone - LLE Overall: full strength in LLE 03/26/2016 None Full Exam - Orthopedics MS: left lower extremity strength & tone - LLE Knee strength: 5/5 strength for all maneuvers 03/26/2016 None Full Exam - Orthopedics MS: left lower extremity strength & tone - LLE Knee strength: normal flexion with 5/5 strength 03/26/2016 None Full Exam - General 1994 Constitutional general appearance Overall: well developed 01/27/2016 None Full Exam - General 1994 Constitutional general appearance Overall: in no acute distress 01/27/2016 None Full Exam - General 1994 Constitutional general appearance Overall: well nourished 01/27/2016 None Full Exam - General 1994 Eyes conjunctiva /eyelids Overall: conjunctiva clear 01/27/2016 None Full Exam - General 1994 Eyes conjunctiva /eyelids Overall: cornea clear 01/27/2016 None Full Exam - General 1994 Eyes conjunctiva /eyelids Overall: eyelids normal 01/27/2016 None Full Exam - General 1994 Eyes pupils and irises Overall: pupils equal, round, reactive to light and accomodation 01/27/2016 None Full Exam - General 1994 Ears/Nose/Throat external ear Overall: normal appearance 01/27/2016 None Full Exam - General 1994 Ears/Nose/Throat external ear Overall: no masses 01/27/2016 None Full Exam - General 1994 Ears/Nose/Throat external ear Overall: normal mastoids 01/27/2016 None Full Exam - General 1994 Ears/Nose/Throat otoscopic exam Overall: tympanic membranes clear 01/27/2016 None Full Exam - General 1994 Ears/Nose/Throat otoscopic exam External auditory canal: partial cerumen occlusion 01/27/2016 None Full Exam - General 1994 Ears/Nose/Throat otoscopic exam External auditory canal: nontender 01/27/2016 None Full Exam - General 1994 Ears/Nose/Throat lips/teeth/gingiva Overall: benign lips 01/27/2016 None Full Exam - General 1994 Ears/Nose/Throat lips/teeth/gingiva Overall: normal dentition 01/27/2016 None Full Exam - General 1994 Ears/Nose/Throat lips/teeth/gingiva Overall: benign gingiva 01/27/2016 None Full Exam - General 1994 Ears/Nose/Throat lips/teeth/gingiva Overall: no masses 01/27/2016 None Full Exam - General 1994 Ears/Nose/Throat oral cavity/pharynx/larynx Overall: oral mucosa clear 01/27/2016 None Full Exam - General 1994 Ears/Nose/Throat oral cavity/pharynx/larynx Overall: oropharyngeal mucosa clear 01/27/2016 None Full Exam - General 1994 Ears/Nose/Throat oral cavity/pharynx/larynx Overall: no masses 01/27/2016 None Full Exam - General 1994 Neck inspection of neck Overall: normal size 01/27/2016 None Full Exam - General 1994 Neck inspection of neck Overall: normal appearance 01/27/2016 None Full Exam - General 1994 Neck inspection of neck Overall: no masses 01/27/2016 None Full Exam - General 1994 Neck inspection of neck Overall: absence of swelling 01/27/2016 None Full Exam - General 1994 Respiratory auscultation Overall: breath sounds clear bilaterally 01/27/2016 None Full Exam - General 1994 Respiratory respiratory effort/rhythm Overall: no retractions 01/27/2016 None Full Exam - General 1994 Respiratory respiratory effort/rhythm Overall: normal rate 01/27/2016 None Full Exam - General 1994 Cardiovascular extremities Overall: no clubbing 01/27/2016 None Full Exam - General 1994 Cardiovascular auscultation of heart Overall: regular rate 01/27/2016 None Full Exam - General 1994 Cardiovascular auscultation of heart Overall: normal heart sounds 01/27/2016 None Full Exam - General 1994 Cardiovascular auscultation of heart Overall: no murmurs 01/27/2016 None Full Exam - General 1994 Abdomen abdominal exam Overall: no tenderness 01/27/2016 None Full Exam - General 1994 Abdomen abdominal exam Overall: normal bowel sounds 01/27/2016 None Full Exam - General 1994 Musculoskeletal head and neck Overall: head atraumatic 01/27/2016 None Full Exam - General 1994 Neurologic sensation Touch: (specify location of deficit): light touch decreased 01/27/2016 bilateral lower extremities, varicose veins, venous stasis Full Exam - General 1994 Psychiatric orientation/consciousness Overall: oriented to person, place and time 01/27/2016 None Full Exam - General 1994 Psychiatric behavior/psychomotor activity Overall: no tics, normal psychomotor activity 01/27/2016 None Full Exam - General 1994 Psychiatric mood and affect Overall: normal mood and affect 01/27/2016 None Full Exam - General 1994 Psychiatric appearance Overall: well-groomed, good eye contact 01/27/2016 None Full Exam - General 1994 Constitutional general appearance Overall: well developed 10/28/2015 None Full Exam - General 1994 Constitutional general appearance Overall: in no acute distress 10/28/2015 None Full Exam - General 1994 Constitutional general appearance Overall: well nourished 10/28/2015 None Full Exam - General 1994 Eyes conjunctiva /eyelids Overall: conjunctiva clear 10/28/2015 None Full Exam - General 1994 Eyes conjunctiva /eyelids Overall: cornea clear 10/28/2015 None Full Exam - General 1994 Eyes conjunctiva /eyelids Overall: eyelids normal 10/28/2015 None Full Exam - General 1994 Eyes pupils and irises Overall: pupils equal, round, reactive to light and accomodation 10/28/2015 None Full Exam - General 1994 Ears/Nose/Throat external ear Overall: normal appearance 10/28/2015 None Full Exam - General 1994 Ears/Nose/Throat external ear Overall: no masses 10/28/2015 None Full Exam - General 1994 Ears/Nose/Throat external ear Overall: normal mastoids 10/28/2015 None Full Exam - General 1994 Ears/Nose/Throat otoscopic exam Overall: tympanic membranes clear 10/28/2015 None Full Exam - General 1994 Ears/Nose/Throat otoscopic exam External auditory canal: partial cerumen occlusion 10/28/2015 None Full Exam - General 1994 Ears/Nose/Throat otoscopic exam External auditory canal: nontender 10/28/2015 None Full Exam - General 1995 Ears/Nose/Throat lips/teeth/gingiva Overall: benign lips 10/28/2015 None Full Exam - General 1994 Ears/Nose/Throat lips/teeth/gingiva Overall: normal dentition 10/28/2015 None Full Exam - General 1994 Ears/Nose/Throat lips/teeth/gingiva Overall: benign gingiva 10/28/2015 None Full Exam - General 1994 Ears/Nose/Throat lips/teeth/gingiva Overall: no masses 10/28/2015 None Full Exam - General 1994 Ears/Nose/Throat oral cavity/pharynx/larynx Overall: oral mucosa clear 10/28/2015 None Full Exam - General 1994 Ears/Nose/Throat oral cavity/pharynx/larynx Overall: oropharyngeal mucosa clear 10/28/2015 None Full Exam - General 1994 Ears/Nose/Throat oral cavity/pharynx/larynx Overall: no masses 10/28/2015 None Full Exam - General 1994 Neck inspection of neck Overall: normal size 10/28/2015 None Full Exam - General 1994 Neck inspection of neck Overall: normal appearance 10/28/2015 None Full Exam - General 1994 Neck inspection of neck Overall: no masses 10/28/2015 None Full Exam - General 1994 Neck inspection of neck Overall: absence of swelling 10/28/2015 None Full Exam - General 1994 Respiratory auscultation Overall: breath sounds clear bilaterally 10/28/2015 None Full Exam - General 1994 Respiratory respiratory effort/rhythm Overall: no retractions 10/28/2015 None Full Exam - General 1994 Respiratory respiratory effort/rhythm Overall: normal rate 10/28/2015 None Full Exam - General 1994 Cardiovascular extremities Overall: no clubbing 10/28/2015 None Full Exam - General 1994 Cardiovascular auscultation of heart Overall: regular rate 10/28/2015 None Full Exam - General 1994 Cardiovascular auscultation of heart Overall: normal heart sounds 10/28/2015 None Full Exam - General 1994 Cardiovascular auscultation of heart Overall: no murmurs 10/28/2015 None Full Exam - General 1994 Musculoskeletal head and neck Overall: head atraumatic 10/28/2015 None Full Exam - General 1994 Psychiatric orientation/consciousness Overall: oriented to person, place and time 10/28/2015 None Full Exam - General 1994 Psychiatric behavior/psychomotor activity Overall: no tics, normal psychomotor activity 10/28/2015 None Full Exam - General 1994 Psychiatric mood and affect Overall: normal mood and affect 10/28/2015 None Full Exam - General 1994 Psychiatric appearance Overall: well-groomed, good eye contact 10/28/2015 None Full Exam - General 1994 Neurologic sensation Touch: (specify location of deficit): light touch decreased 10/28/2015 bilateral lower extremities, varicose veins, venous stasis Full Exam - General 1994 Abdomen abdominal exam Overall: no tenderness 10/28/2015 None Full Exam - General 1994 Abdomen abdominal exam Overall: normal bowel sounds 10/28/2015 None Full Exam - General 1994 Constitutional general appearance Overall: well nourished 08/27/2015 None Full Exam - General 1994 Constitutional general appearance Overall: well developed 08/27/2015 None Full Exam - General 1994 Constitutional general appearance Overall: in no acute distress 08/27/2015 None Full Exam - General 1994 Eyes pupils and irises Overall: pupils equal, round, reactive to light and accomodation 08/27/2015 None Full Exam - General 1994 Eyes conjunctiva /eyelids Overall: conjunctiva clear 08/27/2015 None Full Exam - General 1994 Eyes conjunctiva /eyelids Overall: eyelids normal 08/27/2015 None Full Exam - General 1994 Eyes conjunctiva /eyelids Overall: cornea clear 08/27/2015 None Full Exam - General 1994 Ears/Nose/Throat external ear Overall: no masses 08/27/2015 None Full Exam - General 1994 Ears/Nose/Throat external ear Overall: normal appearance 08/27/2015 None Full Exam - General 1994 Ears/Nose/Throat external ear Overall: normal mastoids 08/27/2015 None Full Exam - General 1994 Ears/Nose/Throat otoscopic exam Overall: tympanic membranes clear 08/27/2015 None Full Exam - General 1994 Ears/Nose/Throat otoscopic exam External auditory canal: partial cerumen occlusion 08/27/2015 None Full Exam - General 1994 Ears/Nose/Throat otoscopic exam External auditory canal: nontender 08/27/2015 None Full Exam - General 1994 Ears/Nose/Throat lips/teeth/gingiva Overall: benign gingiva 08/27/2015 None Full Exam - General 1994 Ears/Nose/Throat lips/teeth/gingiva Overall: no masses 08/27/2015 None Full Exam - General 1994 Ears/Nose/Throat lips/teeth/gingiva Overall: normal dentition 08/27/2015 None Full Exam - General 1994 Ears/Nose/Throat lips/teeth/gingiva Overall: benign lips 08/27/2015 None Full Exam - General 1994 Ears/Nose/Throat oral cavity/pharynx/larynx Overall: oropharyngeal mucosa clear 08/27/2015 None Full Exam - General 1994 Ears/Nose/Throat oral cavity/pharynx/larynx Overall: no masses 08/27/2015 None Full Exam - General 1994 Ears/Nose/Throat oral cavity/pharynx/larynx Overall: oral mucosa clear 08/27/2015 None Full Exam - General 1994 Respiratory auscultation Overall: breath sounds clear bilaterally 08/27/2015 None Full Exam - General 1994 Respiratory respiratory effort/rhythm Overall: normal rate 08/27/2015 None Full Exam - General 1994 Respiratory respiratory effort/rhythm Overall: no retractions 08/27/2015 None Full Exam - General 1994 Neck inspection of neck Overall: normal size 08/27/2015 None Full Exam - General 1994 Neck inspection of neck Overall: normal appearance 08/27/2015 None Full Exam - General 1994 Neck inspection of neck Overall: no masses 08/27/2015 None Full Exam - General 1994 Neck inspection of neck Overall: absence of swelling 08/27/2015 None Full Exam - General 1994 Integument inspection of skin Location: neck 08/27/2015 anterior Full Exam - General 1994 Integument inspection of skin Rash/Lesions: surgical site 08/27/2015 healing Full Exam - General 1994 Cardiovascular auscultation of heart Overall: regular rate 08/27/2015 None Full Exam - General 1994 Cardiovascular auscultation of heart Overall: normal heart sounds 08/27/2015 None Full Exam - General 1994 Cardiovascular auscultation of heart Overall: no murmurs 08/27/2015 None Full Exam - General 1994 Cardiovascular extremities Overall: no clubbing 08/27/2015 None Full Exam - General 1994 Musculoskeletal head and neck Overall: head atraumatic 08/27/2015 None Full Exam - General 1994 Psychiatric behavior/psychomotor activity Overall: no tics, normal psychomotor activity 08/27/2015 None Full Exam - General 1994 Psychiatric mood and affect Overall: normal mood and affect 08/27/2015 None Full Exam - General 1994 Psychiatric appearance Overall: well-groomed, good eye contact 08/27/2015 None Full Exam - General 1994 Psychiatric orientation/consciousness Overall: oriented to person, place and time 08/27/2015 None Full Exam - General 1994 Neurologic sensation Touch: (specify location of deficit): light touch decreased 08/27/2015 bilateral lower extremities, varicose veins, venous stasis Full Exam - General 1994 Constitutional general appearance Overall: well developed 06/06/2015 None Full Exam - General 1994 Constitutional general appearance Overall: in no acute distress 06/06/2015 None Full Exam - General 1994 Constitutional general appearance Overall: well nourished 06/06/2015 None Full Exam - General 1994 Eyes conjunctiva /eyelids Overall: conjunctiva clear 06/06/2015 None Full Exam - General 1994 Eyes conjunctiva /eyelids Overall: cornea clear 06/06/2015 None Full Exam - General 1994 Eyes conjunctiva /eyelids Overall: eyelids normal 06/06/2015 None Full Exam - General 1994 Ears/Nose/Throat otoscopic exam Overall: external auditory canals clear 06/06/2015 None Full Exam - General 1994 Ears/Nose/Throat otoscopic exam Overall: tympanic membranes clear 06/06/2015 None Full Exam - General 1994 Ears/Nose/Throat oral cavity/pharynx/larynx Overall: oral mucosa clear 06/06/2015 None Full Exam - General 1994 Ears/Nose/Throat oral cavity/pharynx/larynx Overall: oropharyngeal mucosa clear 06/06/2015 None Full Exam - General 1994 Ears/Nose/Throat oral cavity/pharynx/larynx Overall: no masses 06/06/2015 None Full Exam - General 1994 Respiratory auscultation Overall: breath sounds clear bilaterally 06/06/2015 None Full Exam - General 1994 Respiratory respiratory effort/rhythm Overall: no retractions 06/06/2015 None Full Exam - General 1994 Respiratory respiratory effort/rhythm Overall: normal rate 06/06/2015 None Full Exam - General 1994 Cardiovascular auscultation of heart Overall: regular rate 06/06/2015 None Full Exam - General 1994 Cardiovascular auscultation of heart Overall: normal heart sounds 06/06/2015 None Full Exam - General 1994 Cardiovascular auscultation of heart Overall: no murmurs 06/06/2015 None Full Exam - General 1994 Abdomen abdominal exam Overall: no tenderness 06/06/2015 None Full Exam - General 1994 Abdomen abdominal exam Overall: normal bowel sounds 06/06/2015 None Full Exam - General 1994 Lymphatic neck nodes Overall: anterior cervical chain benign 06/06/2015 None Full Exam - General 1994 Lymphatic neck nodes Overall: posterior cervical chain benign 06/06/2015 None Full Exam - General 1994 Musculoskeletal digits and nails Overall: no clubbing 06/06/2015 None Full Exam - General 1994 Integument inspection of skin Location: face 06/06/2015 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 Full Exam - General 1994 Neurologic deep tendon reflexes Overall: deep tendon reflexes intact 06/06/2015 None Full Exam - General 1994 Neurologic cranial nerves Overall: crainial nerves 2 - 12 grossly intact 06/06/2015 None Full Exam - General 1994 Psychiatric orientation/consciousness Overall: oriented to person, place and time 06/06/2015 None Full Exam - General 1994 Constitutional general appearance Overall: well nourished 04/30/2015 None Full Exam - General 1994 Constitutional general appearance Overall: well developed 04/30/2015 None Full Exam - General 1994 Constitutional general appearance Overall: in no acute distress 04/30/2015 None Full Exam - General 1994 Ears/Nose/Throat external ear Overall: no masses 04/30/2015 None Full Exam - General 1994 Ears/Nose/Throat external ear Overall: normal appearance 04/30/2015 None Full Exam - General 1994 Ears/Nose/Throat external ear Overall: normal mastoids 04/30/2015 None Full Exam - General 1994 Ears/Nose/Throat external nose Overall: benign appearance 04/30/2015 None Full Exam - General 1994 Ears/Nose/Throat external nose Overall: non-tender 04/30/2015 None Full Exam - General 1994 Ears/Nose/Throat external nose Overall: no masses 04/30/2015 None Full Exam - General 1994 Eyes conjunctiva /eyelids Overall: conjunctiva clear 04/30/2015 None Full Exam - General 1994 Eyes conjunctiva /eyelids Overall: eyelids normal 04/30/2015 None Full Exam - General 1994 Eyes conjunctiva /eyelids Overall: cornea clear 04/30/2015 None Full Exam - General 1994 Respiratory respiratory effort/rhythm Overall: normal rate 04/30/2015 None Full Exam - General 1994 Respiratory respiratory effort/rhythm Overall: no retractions 04/30/2015 None Full Exam - General 1994 Respiratory auscultation Overall: breath sounds clear bilaterally 04/30/2015 None Full Exam - General 1994 Neck inspection of neck Overall: normal appearance 04/30/2015 None Full Exam - General 1994 Neck inspection of neck Overall: absence of swelling 04/30/2015 None Full Exam - General 1994 Neck inspection of neck Overall: no masses 04/30/2015 None Full Exam - General 1994 Neck inspection of neck Overall: normal size 04/30/2015 None Full Exam - General 1994 Cardiovascular auscultation of heart Overall: regular rate 04/30/2015 None Full Exam - General 1994 Cardiovascular auscultation of heart Overall: normal heart sounds 04/30/2015 None Full Exam - General 1994 Cardiovascular auscultation of heart Overall: no murmurs 04/30/2015 None Full Exam - General 1994 Musculoskeletal head and neck Overall: cervical spine benign 04/30/2015 None Full Exam - General 1994 Musculoskeletal head and neck Overall: head atraumatic 04/30/2015 None Full Exam - General 1994 Musculoskeletal head and neck Cervical Spine: tender 04/30/2015 None Full Exam - General 1994 Musculoskeletal head and neck Cervical Spine: full flexion 04/30/2015 None Full Exam - General 1994 Musculoskeletal head and neck Cervical Spine: decreased rotation 04/30/2015 None Full Exam - General 1994 Musculoskeletal head and neck Cervical Spine: full extension 04/30/2015 None Full Exam - General 1994 Musculoskeletal head and neck Deformities: no deformities 04/30/2015 None Full Exam - General 1994 Integument palpation Overall: no induration, no tenderness 04/30/2015 None Full Exam - General 1994 Integument inspection of skin Overall: no rash, lesions 04/30/2015 None Full Exam - General 1994 Psychiatric behavior/psychomotor activity Overall: no tics, normal psychomotor activity 04/30/2015 None Full Exam - General 1994 Psychiatric orientation/consciousness Overall: oriented to person, place and time 04/30/2015 None Full Exam - General 1994 Psychiatric mood and affect Overall: normal mood and affect 04/30/2015 None Full Exam - General 1994 Psychiatric appearance Overall: well-groomed, good eye contact 04/30/2015 None Full Exam - General 1994 Constitutional general appearance Overall: well developed 04/23/2015 None Full Exam - General 1994 Constitutional general appearance Overall: in no acute distress 04/23/2015 None Full Exam - General 1994 Constitutional general appearance Overall: well nourished 04/23/2015 None Full Exam - General 1994 Eyes conjunctiva /eyelids Overall: conjunctiva clear 04/23/2015 None Full Exam - General 1994 Eyes conjunctiva /eyelids Overall: cornea clear 04/23/2015 None Full Exam - General 1994 Eyes conjunctiva /eyelids Overall: eyelids normal 04/23/2015 None Full Exam - General 1994 Ears/Nose/Throat otoscopic exam Overall: external auditory canals clear 04/23/2015 None Full Exam - General 1994 Ears/Nose/Throat otoscopic exam Overall: tympanic membranes clear 04/23/2015 None Full Exam - General 1994 Ears/Nose/Throat oral cavity/pharynx/larynx Overall: oral mucosa clear 04/23/2015 None Full Exam - General 1994 Ears/Nose/Throat oral cavity/pharynx/larynx Overall: oropharyngeal mucosa clear 04/23/2015 None Full Exam - General 1994 Ears/Nose/Throat oral cavity/pharynx/larynx Overall: no masses 04/23/2015 None Full Exam - General 1994 Respiratory auscultation Overall: breath sounds clear bilaterally 04/23/2015 None Full Exam - General 1994 Respiratory respiratory effort/rhythm Overall: no retractions 04/23/2015 None Full Exam - General 1994 Respiratory respiratory effort/rhythm Overall: normal rate 04/23/2015 None Full Exam - General 1994 Cardiovascular auscultation of heart Overall: regular rate 04/23/2015 None Full Exam - General 1994 Cardiovascular auscultation of heart Overall: normal heart sounds 04/23/2015 None Full Exam - General 1994 Cardiovascular auscultation of heart Overall: no murmurs 04/23/2015 None Full Exam - General 1994 Abdomen abdominal exam Overall: no tenderness 04/23/2015 None Full Exam - General 1994 Abdomen abdominal exam Overall: normal bowel sounds 04/23/2015 None Full Exam - General 1994 Lymphatic neck nodes Overall: anterior cervical chain benign 04/23/2015 None Full Exam - General 1994 Lymphatic neck nodes Overall: posterior cervical chain benign 04/23/2015 None Full Exam - General 1994 Musculoskeletal digits and nails Overall: no clubbing 04/23/2015 None Full Exam - General 1994 Integument inspection of skin Location: face 04/23/2015 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 Full Exam - General 1994 Neurologic deep tendon reflexes Overall: deep tendon reflexes intact 04/23/2015 None Full Exam - General 1994 Neurologic cranial nerves Overall: crainial nerves 2 - 12 grossly intact 04/23/2015 None Full Exam - General 1994 Psychiatric orientation/consciousness Overall: oriented to person, place and time 04/23/2015 None Full Exam - General 1994 Constitutional general appearance Overall: well developed 03/04/2015 None Full Exam - General 1994 Constitutional general appearance Overall: in no acute distress 03/04/2015 None Full Exam - General 1994 Constitutional general appearance Overall: well nourished 03/04/2015 None Full Exam - General 1994 Eyes conjunctiva /eyelids Overall: conjunctiva clear 03/04/2015 None Full Exam - General 1994 Eyes conjunctiva /eyelids Overall: cornea clear 03/04/2015 None Full Exam - General 1994 Eyes conjunctiva /eyelids Overall: eyelids normal 03/04/2015 None Full Exam - General 1994 Ears/Nose/Throat otoscopic exam Overall: external auditory canals clear 03/04/2015 None Full Exam - General 1994 Ears/Nose/Throat otoscopic exam Overall: tympanic membranes clear 03/04/2015 None Full Exam - General 1994 Ears/Nose/Throat oral cavity/pharynx/larynx Overall: oral mucosa clear 03/04/2015 None Full Exam - General 1994 Ears/Nose/Throat oral cavity/pharynx/larynx Overall: oropharyngeal mucosa clear 03/04/2015 None Full Exam - General 1994 Ears/Nose/Throat oral cavity/pharynx/larynx Overall: no masses 03/04/2015 None Full Exam - General 1994 Respiratory auscultation Overall: breath sounds clear bilaterally 03/04/2015 None Full Exam - General 1994 Respiratory respiratory effort/rhythm Overall: no retractions 03/04/2015 None Full Exam - General 1994 Respiratory respiratory effort/rhythm Overall: normal rate 03/04/2015 None Full Exam - General 1994 Cardiovascular auscultation of heart Overall: regular rate 03/04/2015 None Full Exam - General 1994 Cardiovascular auscultation of heart Overall: normal heart sounds 03/04/2015 None Full Exam - General 1994 Cardiovascular auscultation of heart Overall: no murmurs 03/04/2015 None Full Exam - General 1994 Abdomen abdominal exam Overall: no tenderness 03/04/2015 None Full Exam - General 1994 Abdomen abdominal exam Overall: normal bowel sounds 03/04/2015 None Full Exam - General 1994 Lymphatic neck nodes Overall: anterior cervical chain benign 03/04/2015 None Full Exam - General 1994 Lymphatic neck nodes Overall: posterior cervical chain benign 03/04/2015 None Full Exam - General 1994 Musculoskeletal digits and nails Overall: no clubbing 03/04/2015 None Full Exam - General 1994 Integument inspection of skin Location: face 03/04/2015 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 Full Exam - General 1994 Neurologic deep tendon reflexes Overall: deep tendon reflexes intact 03/04/2015 None Full Exam - General 1994 Neurologic cranial nerves Overall: crainial nerves 2 - 12 grossly intact 03/04/2015 None Full Exam - General 1994 Psychiatric orientation/consciousness Overall: oriented to person, place and time 03/04/2015 None Full Exam - General 1994 Constitutional general appearance Overall: well developed 12/04/2014 None Full Exam - General 1994 Constitutional general appearance Overall: in no acute distress 12/04/2014 None Full Exam - General 1994 Constitutional general appearance Overall: well nourished 12/04/2014 None Full Exam - General 1994 Psychiatric orientation/consciousness Overall: oriented to person, place and time 12/04/2014 None Full Exam - General 1994 Neurologic deep tendon reflexes Overall: deep tendon reflexes intact 12/04/2014 None Full Exam - General 1994 Neurologic cranial nerves Overall: crainial nerves 2 - 12 grossly intact 12/04/2014 None Full Exam - General 1994 Integument inspection of skin Location: face 12/04/2014 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 Full Exam - General 1994 Musculoskeletal digits and nails Overall: no clubbing 12/04/2014 None Full Exam - General 1994 Lymphatic neck nodes Overall: anterior cervical chain benign 12/04/2014 None Full Exam - General 1994 Lymphatic neck nodes Overall: posterior cervical chain benign 12/04/2014 None Full Exam - General 1994 Abdomen abdominal exam Overall: no tenderness 12/04/2014 None Full Exam - General 1994 Abdomen abdominal exam Overall: normal bowel sounds 12/04/2014 None Full Exam - General 1994 Cardiovascular auscultation of heart Overall: regular rate 12/04/2014 None Full Exam - General 1994 Cardiovascular auscultation of heart Overall: normal heart sounds 12/04/2014 None Full Exam - General 1994 Cardiovascular auscultation of heart Overall: no murmurs 12/04/2014 None Full Exam - General 1994 Respiratory auscultation Overall: breath sounds clear bilaterally 12/04/2014 None Full Exam - General 1994 Respiratory respiratory effort/rhythm Overall: normal rate 12/04/2014 None Full Exam - General 1994 Respiratory respiratory effort/rhythm Overall: no retractions 12/04/2014 None Full Exam - General 1994 Ears/Nose/Throat otoscopic exam Overall: tympanic membranes clear 12/04/2014 None Full Exam - General 1994 Ears/Nose/Throat otoscopic exam Overall: external auditory canals clear 12/04/2014 None Full Exam - General 1994 Ears/Nose/Throat oral cavity/pharynx/larynx Overall: oropharyngeal mucosa clear 12/04/2014 None Full Exam - General 1994 Ears/Nose/Throat oral cavity/pharynx/larynx Overall: no masses 12/04/2014 None Full Exam - General 1994 Ears/Nose/Throat oral cavity/pharynx/larynx Overall: oral mucosa clear 12/04/2014 None Full Exam - General 1994 Eyes conjunctiva /eyelids Overall: conjunctiva clear 12/04/2014 None Full Exam - General 1994 Eyes conjunctiva /eyelids Overall: eyelids normal 12/04/2014 None Full Exam - General 1994 Eyes conjunctiva /eyelids Overall: cornea clear 12/04/2014 None Full Exam - General 1994 Cardiovascular extremities Edema present: pitting 12/04/2014 None Full Exam - General 1994 Cardiovascular extremities Edema present: severity 1+ - 4 +: 1-2+ bilateral lower legs 12/04/2014 None Procedures Procedure Codes Date THER/PROPH/DIAG INJ SC/IM CPT-4: 34550 08/03/2017 TRIAMCINOLONE ACET INJ NOS CPT-4: J3301 08/03/2017 ROCEPHIN, PER 250 MG CPT-4: J0696 08/03/2017 TRIAMCINOLONE ACET INJ NOS CPT-4: J3301 04/08/2017 ADMIN INFLUENZA VIRUS VAC CPT-4: G0008 04/01/2017 FLU VACC PRSV FREE INC ANTIG CPT-4: 17351 04/01/2017 TRIAMCINOLONE ACET INJ NOS CPT-4: J3301 05/19/2016 THER/PROPH/DIAG INJ SC/IM CPT-4: 32483 05/12/2016 TRIAMCINOLONE ACET INJ NOS CPT-4: J3301 05/12/2016 ADMIN PNEUMOCOCCAL VACCINE SNOMED CT: [id number] CPT-4: G0009 05/05/2016 Pneumococcal Polysaccharide Vaccine, 23-Valent, Ad Formatting Model/CDA Sections, Assigned to/Otilia Ramires CPT-4: [id number] 05/05/2016 ADMIN INFLUENZA VIRUS VAC CPT-4: G0008 04/24/2016 FLU VACC 4 YA 3 YRS PLUS IM SNOMED CT: 15621615 CPT-4: 25542 04/24/2016 Vital Signs Date Vital 03/03/2018 Blood Pressure 1: 122/64 Code : 8480-6 BMI: 24.4 Code : 06006-4 Heart Rate 1 : 73 bpm Height: 6' SpO2: 99% Weight: 180 lbs 01/10/2018 Blood Pressure 1: 140/72 Code : 8480-6 BMI: 24.5 Code : 76313-4 Heart Rate 1 : 95 bpm Height: 6' SpO2: 94% Weight: 181 lbs 12/16/2017 Blood Pressure 1: 132/64 Code : 8480-6 BMI: 24.5 Code : 48737-0 Heart Rate 1 : 77 bpm Height: 6' SpO2: 98% Weight: 181 lbs 10/13/2017 Blood Pressure 1: 148/66 Code : 8480-6 BMI: 26.9 Code : 08098-1 Heart Rate 1 : 67 bpm Height: 6' SpO2: 98% Weight: 198 lbs 10/04/2017 Blood Pressure 1: 136/64 Code : 8480-6 BMI: 27.0 Code : 50328-6 Heart Rate 1 : 76 bpm Height: 6' SpO2: 100% Weight: 199 lbs 09/01/2017 Blood Pressure 1: 148/84 Code : 8480-6 BMI: 25.9 Code : 76394-7 Heart Rate 1 : 81 bpm Height: 6' Respiratory Rate: 20 bpm SpO2: 99% Weight: 191 lbs 08/18/2017 Blood Pressure 1: 122/66 Code : 8480-6 BMI: 26.3 Code : 59929-3 Heart Rate 1 : 85 bpm Height: 6' SpO2: 95% Temperature: 36.6 (C) / 97.8 (F) Weight: 194 lbs 08/03/2017 Blood Pressure 1: 126/64 Code : 8480-6 BMI: 27.0 Code : 34276-3 Heart Rate 1 : 92 bpm Height: 6' SpO2: 94% Temperature: 37.4 (C) / 99.3 (F) Weight: 199 lbs 07/05/2017 Blood Pressure 1: 134/66 Code : 8480-6 BMI: 27.1 Code : 98400-7 Heart Rate 1 : 72 bpm Height: 6' SpO2: 96% Weight: 200 lbs 04/23/2017 Blood Pressure 1: 130/72 Code : 8480-6 BMI: 25.9 Code : 59217-7 Heart Rate 1 : 56 bpm Height: 6' SpO2: 97% Weight: 191 lbs 04/08/2017 Blood Pressure 1: 116/64 Code : 8480-6 BMI: 25.9 Code : 07093-1 Heart Rate 1 : 71 bpm Height: 6' SpO2: 97% Weight: 191 lbs 01/21/2017 Blood Pressure 1: 132/74 Code : 8480-6 BMI: 26.0 Code : 05760-7 Heart Rate 1 : 54 bpm Height: 6' SpO2: 94% Weight: 192 lbs 10/19/2016 Blood Pressure 1: 132/64 Code : 8480-6 BMI: 27.7 Code : 12687-2 Heart Rate 1 : 77 bpm Height: 6' SpO2: 98% Weight: 204 lbs 07/23/2016 Blood Pressure 1: 130/62 Code : 8480-6 BMI: 27.8 Code : 38902-6 Heart Rate 1 : 95 bpm Height: 6' SpO2: 97% Weight: 205 lbs 05/19/2016 Blood Pressure 1: 118/70 Code : 8480-6 BMI: 27.9 Code : 68333-0 Heart Rate 1 : 76 bpm Height: 6' SpO2: 97% Weight: 206 lbs 04/21/2016 Blood Pressure 1: 130/70 Code : 8480-6 BMI: 27.9 Code : 92349-9 Heart Rate 1 : 76 bpm Height: 6' SpO2: 96% Weight: 206 lbs 03/26/2016 Blood Pressure 1: 130/78 Code : 8480-6 BMI: 27.7 Code : 58278-6 Heart Rate 1 : 61 bpm Height: 6' SpO2: 98% Weight: 204 lbs 01/27/2016 Blood Pressure 1: 124/80 Code : 8480-6 BMI: 27.5 Code : 51522-4 Heart Rate 1 : 78 bpm Height: 6' SpO2: 96% Weight: 203 lbs 10/28/2015 Blood Pressure 1: 138/78 Code : 8480-6 BMI: 27.7 Code : 76906-7 Heart Rate 1 : 76 bpm Height: 6' SpO2: 98% Weight: 204 lbs 08/27/2015 Blood Pressure 1: 128/56 Code : 8480-6 BMI: 27.4 Code : 44226-7 Heart Rate 1 : 49 bpm Height: 6' SpO2: 98% Weight: 202 lbs 06/06/2015 Blood Pressure 1: 128/62 Code : 8480-6 BMI: 26.0 Code : 94301-8 Heart Rate 1 : 80 bpm Height: 6' SpO2: 98% Weight: 192 lbs 04/30/2015 Blood Pressure 1: 138/64 Code : 8480-6 BMI: 19.2 Code : 66900-0 Heart Rate 1 : 71 bpm Height: 6' SpO2: 94% Weight: 141 lbs 8 oz 04/23/2015 Blood Pressure 1: 128/64 Code : 8480-6 BMI: 25.6 Code : 37771-5 Heart Rate 1 : 66 bpm Height: 6' SpO2: 98% Weight: 189 lbs 03/04/2015 Blood Pressure 1: 132/50 Code : 8480-6 BMI: 25.8 Code : 40563-8 Heart Rate 1 : 63 bpm Height: 6' SpO2: 97% Weight: 190 lbs 12/04/2014 Blood Pressure 1: 112/68 Code : 8480-6 BMI: 26.9 Code : 63508-1 Heart Rate 1 : 68 bpm Height: 6' Weight: 198 lbs Functional Status No Functional Status data History of Present Illness Symptom Name Status Result Effective Date Notes back pain Quality intermittent 03/03/2018 None back pain Onset and Resolution ongoing 03/03/2018 None back pain Onset of Symptom several months ago 03/03/2018 None back pain Frequency of Episodes daily 03/03/2018 None back pain Alleviating Factors medication 03/03/2018 (tylenol) and muscle relaxer at night memory loss Onset of Symptom _ months ago 03/03/2018 None memory loss Limitation on Activities does not limit activities 03/03/2018 None memory loss Frequency of Episodes increasing 03/03/2018 hard time remembering names. states he will forget things they've talked about. memory loss Triggers no known associated factors 03/03/2018 None memory loss Pertinent Findings Denies difficulty reading 03/03/2018 None memory loss Pertinent Findings Denies difficulty writing 03/03/2018 None memory loss Pertinent Findings Denies motor deficits 03/03/2018 None memory loss Pertinent Findings Denies personality changes 03/03/2018 None memory loss Pertinent Findings Denies ataxia 03/03/2018 None memory loss Quality difficulty remembering names 03/03/2018 None memory loss Onset and Resolution ongoing 03/03/2018 None sinus congestion Onset and Resolution ongoing 01/10/2018 None sinus congestion Onset of Symptom 2 weeks ago 01/10/2018 None sinus congestion Pertinent Findings Denies cough 01/10/2018 None sinus congestion Pertinent Findings Denies decreased energy level 01/10/2018 None sinus congestion Pertinent Findings Denies fever 01/10/2018 None sinus congestion Severity mild 01/10/2018 None sinus congestion Frequency of Episodes increasing 01/10/2018 None sinus congestion Significant Medical Conditions allergic rhinitis 01/10/2018 None sinus congestion Triggers allergens 01/10/2018 None sinus congestion Location on both sides 01/10/2018 None sinus congestion Quality acute 01/10/2018 None diabetes mellitus Quality non-insulin dependent 01/10/2018 None diabetes mellitus Severity mild 01/10/2018 None diabetes mellitus Test results HgbA1c level 6.9 01/10/2018 None diabetes mellitus Test results Pt checking blood glucose readings, did not bring results to clinic 01/10/2018 100-120 diabetes mellitus Blood glucose levels between 60 and 120 01/10/2018 None diabetes mellitus Glucose monitoring daily 01/10/2018 None diabetes mellitus Significant Medications glucagon 01/10/2018 None diabetes mellitus Alleviating Factors medication 01/10/2018 None diabetes mellitus Onset of Symptom onset as an adult 01/10/2018 None diabetes mellitus Pertinent Findings Denies nausea 01/10/2018 None diabetes mellitus Pertinent Findings Denies lethargy 01/10/2018 None laceration of the arm Location on the left 12/16/2017 None laceration of the arm Quality acute 12/16/2017 None laceration of the arm Onset of Symptom 3 days ago 12/16/2017 None laceration of the arm Quality active bleeding 12/16/2017 None laceration of the arm Mechanism of injury blunt trauma 12/16/2017 None laceration of the arm Pertinent Findings Denies fever 12/16/2017 None laceration of the arm Pertinent Findings bruising 12/16/2017 None dizziness Onset of Symptom _ weeks ago 10/13/2017 None dizziness Quality intermittent 10/13/2017 None dizziness Quality drop attacks 10/13/2017 None dizziness Quality feelings of unsteadiness 10/13/2017 None dizziness Pertinent Findings Denies fever 10/13/2017 None dizziness Pertinent Findings Denies confusion 10/13/2017 None dizziness Pertinent Findings Denies dyspnea 10/13/2017 None dizziness Pertinent Findings lightheadedness 10/13/2017 None dizziness Pertinent Findings Denies palpitations 10/13/2017 None diabetes mellitus Quality non-insulin dependent 10/04/2017 None diabetes mellitus Severity mild 10/04/2017 None diabetes mellitus Significant Medications glucagon 10/04/2017 None diabetes mellitus Alleviating Factors medication 10/04/2017 None diabetes mellitus Nutrition regular diet 10/04/2017 None diabetes mellitus Pertinent Findings Denies dizziness 10/04/2017 None diabetes mellitus Pertinent Findings Denies dyspnea 10/04/2017 None diabetes mellitus Pertinent Findings Denies numbness 10/04/2017 None diabetes mellitus Pertinent Findings Denies tingling 10/04/2017 None diabetes mellitus Onset of Symptom onset as an adult 10/04/2017 None diabetes mellitus Test results Pt checking blood glucose at home, see scanned readings 2017 None diabetes mellitus Blood glucose levels greater than 120 10/04/2017 None diabetes mellitus Glucose monitoring daily 10/04/2017 None diabetes mellitus Glucose monitoring fasting 10/04/2017 None memory loss Onset of Symptom during adulthood 10/04/2017 None memory loss Limitation on Activities moderately limits activities 10/04/2017 None memory loss Triggers no known associated factors 10/04/2017 None memory loss Pertinent Findings Denies difficulty reading 10/04/2017 None memory loss Pertinent Findings Denies difficulty writing 10/04/2017 None memory loss Quality acute 10/04/2017 None memory loss Quality difficulty remembering names 10/04/2017 None memory loss Onset and Resolution sudden in onset 10/04/2017 None diabetes mellitus Test results HgbA1c level 6.5 10/04/2017 None cough Quality acute None cough Quality hacking 09/01/2017 None cough Quality intermittent 09/01/2017 None cough Onset and Resolution sudden in onset 09/01/2017 None cough Onset of Symptom 1 days ago 09/01/2017 None cough Onset of Symptom during adulthood 09/01/2017 None cough Pertinent Findings chest discomfort 09/01/2017 None cough Pertinent Findings fever 09/01/2017 None cough Pertinent Findings hoarseness 09/01/2017 None cough Pertinent Findings Denies muscle aches 09/01/2017 None cough Pertinent Findings nasal congestion 09/01/2017 None cough Pertinent Findings purulent sputum 09/01/2017 None cough Pertinent Findings sputum production 09/01/2017 None cough Quality acute None cough Quality hacking 08/18/2017 None cough Quality intermittent 08/18/2017 None cough Onset and Resolution sudden in onset 08/18/2017 None cough Onset of Symptom 1 days ago 08/18/2017 None cough Onset of Symptom during adulthood 08/18/2017 None cough Pertinent Findings chest discomfort 08/18/2017 None cough Pertinent Findings fever 08/18/2017 None cough Pertinent Findings hoarseness 08/18/2017 None cough Pertinent Findings Denies muscle aches 08/18/2017 None cough Pertinent Findings nasal congestion 08/18/2017 None cough Pertinent Findings purulent sputum 08/18/2017 None cough Pertinent Findings sputum production 08/18/2017 None sinus congestion Location frontal sinuses 08/18/2017 None sinus congestion Location maxillary sinuses 08/18/2017 None sinus congestion Location on both sides 08/18/2017 None sinus congestion Quality acute 08/18/2017 None sinus congestion Onset and Resolution ongoing 08/18/2017 None sinus congestion Onset of Symptom 2 weeks ago 08/18/2017 None sinus congestion Pertinent Findings decreased energy level 08/18/2017 None sinus congestion Pertinent Findings cough 08/18/2017 None sinus congestion Pertinent Findings Denies fever 08/18/2017 None sinus congestion Pertinent Findings hoarseness 08/18/2017 None cough Onset and Resolution sudden in onset 08/03/2017 None cough Quality acute None cough Quality hacking 08/03/2017 None cough Quality intermittent 08/03/2017 None cough Onset of Symptom 1 days ago 08/03/2017 None cough Onset of Symptom during adulthood 08/03/2017 None cough Pertinent Findings chest discomfort 08/03/2017 None cough Pertinent Findings fever 08/03/2017 None cough Pertinent Findings hoarseness 08/03/2017 None cough Pertinent Findings Denies muscle aches 08/03/2017 None cough Pertinent Findings nasal congestion 08/03/2017 None cough Pertinent Findings sputum production 08/03/2017 None cough Pertinent Findings purulent sputum 08/03/2017 None fever Quality acute None fever Onset and Resolution sudden in onset 08/03/2017 None fever Onset of Symptom 1 days ago 08/03/2017 None fever Temperature 99 degrees 08/03/2017 None fever Pertinent Findings cough 08/03/2017 None fever Pertinent Findings Denies chills 08/03/2017 None fever Pertinent Findings upper respiratory tract symptoms 08/03/2017 None diabetes mellitus Quality non-insulin dependent 07/05/2017 None diabetes mellitus Severity mild 07/05/2017 None diabetes mellitus Significant Medications glucagon 07/05/2017 None diabetes mellitus Alleviating Factors medication 07/05/2017 None diabetes mellitus Nutrition regular diet 07/05/2017 None diabetes mellitus Pertinent Findings Denies dizziness 07/05/2017 None diabetes mellitus Pertinent Findings Denies dyspnea 07/05/2017 None diabetes mellitus Pertinent Findings Denies numbness 07/05/2017 None diabetes mellitus Pertinent Findings Denies tingling 07/05/2017 None diabetes mellitus Onset of Symptom onset as an adult 07/05/2017 None diabetes mellitus Test results HgbA1c level 6.5 07/05/2017 None diabetes mellitus Blood glucose levels between 60 and 120 07/05/2017 None diabetes mellitus Glucose monitoring daily 07/05/2017 None diabetes mellitus Quality non-insulin dependent 04/23/2017 None diabetes mellitus Severity mild 04/23/2017 None diabetes mellitus Significant Medications glucagon 04/23/2017 None diabetes mellitus Alleviating Factors medication 04/23/2017 None diabetes mellitus Nutrition regular diet 04/23/2017 None diabetes mellitus Pertinent Findings Denies dizziness 04/23/2017 None diabetes mellitus Pertinent Findings Denies dyspnea 04/23/2017 None diabetes mellitus Pertinent Findings Denies numbness 04/23/2017 None diabetes mellitus Pertinent Findings Denies tingling 04/23/2017 None diabetes mellitus Onset of Symptom onset as an adult 04/23/2017 None sinus congestion Onset and Resolution ongoing 04/23/2017 None diabetes mellitus Test results HgbA1c level 6.6 04/23/2017 None sinus congestion Onset and Resolution ongoing 04/08/2017 None sinus congestion Severity moderate 04/08/2017 None sinus congestion Pertinent Findings cough 04/08/2017 None sinus congestion Pertinent Findings decreased energy level 04/08/2017 None sinus congestion Pertinent Findings facial pain 04/08/2017 None sinus congestion Pertinent Findings Denies fever 04/08/2017 None sinus congestion Pertinent Findings hoarseness 04/08/2017 None sinus congestion Pertinent Findings nasal crusting 04/08/2017 None sinus congestion Location on both sides 04/08/2017 None sinus congestion Quality acute 04/08/2017 None sinus congestion Quality pressure 04/08/2017 None sinus congestion Quality pain 04/08/2017 None sinus congestion Quality fullness 04/08/2017 None sinus congestion Significant Medications antibiotics 04/08/2017 None sinus congestion Significant Medications nasal spray 04/08/2017 None sinus congestion Significant Medications decongestants 04/08/2017 None sinus congestion Triggers no known associated factors 04/08/2017 None sinus congestion Triggers allergens 04/08/2017 None sinus congestion Onset of Symptom _ weeks ago 04/08/2017 None sinus congestion Frequency of Episodes increasing 04/08/2017 None sinus congestion Significant Medical Conditions allergic rhinitis 04/08/2017 None diabetes mellitus Quality non-insulin dependent 01/21/2017 None diabetes mellitus Severity mild 01/21/2017 None diabetes mellitus Significant Medications glucagon 01/21/2017 None diabetes mellitus Alleviating Factors medication 01/21/2017 None diabetes mellitus Nutrition regular diet 01/21/2017 None diabetes mellitus Pertinent Findings Denies dizziness 01/21/2017 None diabetes mellitus Pertinent Findings Denies dyspnea 01/21/2017 None diabetes mellitus Pertinent Findings Denies numbness 01/21/2017 None diabetes mellitus Pertinent Findings Denies tingling 01/21/2017 None diabetes mellitus Onset of Symptom onset as an adult 01/21/2017 None cough Location in the throat 01/21/2017 None cough Quality productive 01/21/2017 None cough Onset and Resolution ongoing 01/21/2017 None cough Onset of Symptom 3 weeks ago 01/21/2017 None cough Limitation on Activities does not limit activities 01/21/2017 None cough Frequency of Episodes daily 01/21/2017 None cough Triggers known allergens 01/21/2017 None cough Pertinent Findings Denies chest discomfort 01/21/2017 None cough Pertinent Findings Denies dyspnea 01/21/2017 None diabetes mellitus Test results HgbA1c level 7.0 01/21/2017 None diabetes mellitus Quality non-insulin dependent 10/19/2016 None diabetes mellitus Severity mild 10/19/2016 None diabetes mellitus Significant Medications glucagon 10/19/2016 None diabetes mellitus Alleviating Factors medication 10/19/2016 None diabetes mellitus Nutrition regular diet 10/19/2016 None diabetes mellitus Pertinent Findings Denies dizziness 10/19/2016 None diabetes mellitus Pertinent Findings Denies dyspnea 10/19/2016 None diabetes mellitus Onset of Symptom onset as an adult 10/19/2016 None knee pain Location on the left 10/19/2016 None knee pain Quality intermittent 10/19/2016 None knee pain Onset of Symptom 1 weeks ago 10/19/2016 None knee pain Frequency of Episodes daily 10/19/2016 None knee pain Limitation on Activities allows weight bearing activity 10/19/2016 None knee pain Pertinent Findings Denies decreased range of motion 10/19/2016 None knee pain Pertinent Findings Denies limping 10/19/2016 None knee pain Pertinent Findings pain with movement 10/19/2016 None knee pain Pertinent Findings swelling 10/19/2016 None knee pain Quality improving 10/19/2016 None diabetes mellitus Test results Pt checking blood glucose readings, did not bring results to clinic 10/19/2016 BG 140 this AM, usually runs 130 but had some cookies last night diabetes mellitus Glucose monitoring occasional glucose testing 10/19/2016 None diabetes mellitus Pertinent Findings Denies numbness 10/19/2016 None diabetes mellitus Pertinent Findings Denies tingling 10/19/2016 None diabetes mellitus Quality non-insulin dependent 07/23/2016 None diabetes mellitus Severity mild 07/23/2016 None diabetes mellitus Significant Medications glucagon 07/23/2016 None diabetes mellitus Alleviating Factors medication 07/23/2016 None diabetes mellitus Nutrition regular diet 07/23/2016 None diabetes mellitus Pertinent Findings Denies dizziness 07/23/2016 None diabetes mellitus Pertinent Findings Denies dyspnea 07/23/2016 None diabetes mellitus Onset of Symptom onset as an adult 07/23/2016 None knee pain Location on the left 07/23/2016 None knee pain Quality intermittent 07/23/2016 None knee pain Onset of Symptom 1 weeks ago 07/23/2016 None knee pain Frequency of Episodes daily 07/23/2016 None knee pain Limitation on Activities allows weight bearing activity 07/23/2016 None knee pain Pertinent Findings Denies decreased range of motion 07/23/2016 None knee pain Pertinent Findings Denies limping 07/23/2016 None knee pain Pertinent Findings pain with movement 07/23/2016 None knee pain Pertinent Findings swelling 07/23/2016 None diabetes mellitus Test results HgbA1c level 7.0% 07/23/2016 None cough Location in the throat 05/19/2016 None cough Quality productive 05/19/2016 None cough Onset of Symptom 3 weeks ago 05/19/2016 None cough Frequency of Episodes daily 05/19/2016 None cough Pertinent Findings Denies chest discomfort 05/19/2016 None cough Pertinent Findings Denies dyspnea 05/19/2016 None cough Onset and Resolution ongoing 05/19/2016 None cough Limitation on Activities does not limit activities 05/19/2016 None cough Triggers known allergens 05/19/2016 None diabetes mellitus Quality non-insulin dependent 04/21/2016 None diabetes mellitus Severity mild 04/21/2016 None diabetes mellitus Significant Medications glucagon 04/21/2016 None diabetes mellitus Nutrition regular diet 04/21/2016 None knee pain Location on the left 04/21/2016 None knee pain Quality intermittent 04/21/2016 None knee pain Onset of Symptom 1 weeks ago 04/21/2016 None knee pain Frequency of Episodes daily 04/21/2016 None knee pain Limitation on Activities allows weight bearing activity 04/21/2016 None knee pain Pertinent Findings Denies decreased range of motion 04/21/2016 None knee pain Pertinent Findings Denies limping 04/21/2016 None knee pain Pertinent Findings pain with movement 04/21/2016 None knee pain Pertinent Findings swelling 04/21/2016 None diabetes mellitus Test results HgbA1c level 7.0 04/21/2016 None diabetes mellitus Blood glucose levels between 60 and 120 04/21/2016 None diabetes mellitus Blood glucose levels greater than 120 04/21/2016 None diabetes mellitus Glucose monitoring daily 04/21/2016 in the morning diabetes mellitus Alleviating Factors medication 04/21/2016 None diabetes mellitus Onset of Symptom onset as an adult 04/21/2016 None diabetes mellitus Pertinent Findings Denies dizziness 04/21/2016 None diabetes mellitus Pertinent Findings Denies dyspnea 04/21/2016 None knee pain Location on the left 03/26/2016 None knee pain Quality intermittent 03/26/2016 None knee pain Onset of Symptom 1 weeks ago 03/26/2016 None knee pain Frequency of Episodes daily 03/26/2016 None knee pain Limitation on Activities allows weight bearing activity 03/26/2016 None knee pain Pertinent Findings Denies decreased range of motion 03/26/2016 None knee pain Pertinent Findings Denies limping 03/26/2016 None knee pain Pertinent Findings pain with movement 03/26/2016 None knee pain Pertinent Findings swelling 03/26/2016 None fatigue Limitation on Activities does not limit activities 01/27/2016 None fatigue Onset of Symptom 1 months ago 01/27/2016 None fatigue Frequency of Episodes daily 01/27/2016 None fatigue Pertinent Findings Denies back pain 01/27/2016 None fatigue Pertinent Findings Denies dizziness 01/27/2016 None fatigue Pertinent Findings Denies insomnia 01/27/2016 None Hospital Follow Up _ pain 01/27/2016 None Hospital Follow Up Quality intermittent 01/27/2016 None Hospital Follow Up Pertinent Findings Denies pain 01/27/2016 None Hospital Follow Up Pertinent Findings Denies fever 01/27/2016 None blood pressure followup Quality chronic 01/27/2016 None blood pressure followup Onset and Resolution ongoing 01/27/2016 None blood pressure followup Onset of Symptom during adulthood 01/27/2016 None blood pressure followup Severity mild 01/27/2016 None blood pressure followup Frequency of Episodes unchanged 01/27/2016 None blood pressure followup Significant Medical Conditions cardiac disease 01/27/2016 None blood pressure followup Alleviating Factors medication 01/27/2016 None blood pressure followup Pertinent Findings Denies confusion 01/27/2016 None blood pressure followup Pertinent Findings Denies dyspnea 01/27/2016 None blood pressure followup Triggers no known associated factors 01/27/2016 None diabetes mellitus Quality non-insulin dependent 01/27/2016 None diabetes mellitus Severity mild 01/27/2016 None diabetes mellitus Test results HgbA1c level 7.1 01/27/2016 None diabetes mellitus Blood glucose levels greater than 120 01/27/2016 None diabetes mellitus Blood glucose levels between 60 and 120 01/27/2016 None diabetes mellitus Glucose monitoring daily 01/27/2016 None diabetes mellitus Significant Medications glucagon 01/27/2016 None diabetes mellitus Alleviating Factors medication 01/27/2016 None diabetes mellitus Nutrition regular diet 01/27/2016 None hypertension Quality intermittent 10/28/2015 None hypertension Onset and Resolution ongoing 10/28/2015 None hypertension Onset of Symptom during adulthood 10/28/2015 None hypertension Blood Pressure Values patient checking blood pressure at home - did not bring in readings 10/28/2015 None hypertension Severity not consistently severe symptoms, the symptoms fluctuate from no symptoms to anxiety and headaches 10/28/2015 None hypertension Frequency of Episodes unchanged 10/28/2015 None hypertension Triggers no known associated factors 10/28/2015 None hypertension Alleviating Factors medication 10/28/2015 None hypertension Pertinent Findings Denies dizziness 10/28/2015 None hypertension Pertinent Findings Denies dyspnea 10/28/2015 None diabetes mellitus Quality non-insulin dependent 10/28/2015 None diabetes mellitus Severity mild 10/28/2015 None diabetes mellitus Alleviating Factors diet 10/28/2015 None diabetes mellitus Pertinent Findings Denies dizziness 10/28/2015 None diabetes mellitus Pertinent Findings Denies dyspnea 10/28/2015 None diabetes mellitus Onset of Symptom onset as an adult 10/28/2015 None medication follow up Additional Comments medication use 10/28/2015 None diabetes mellitus Glucose monitoring occasional glucose testing 10/28/2015 he checks every few days he was 131 this am. He runs 120-140 hypertension Quality intermittent 08/27/2015 None hypertension Onset and Resolution ongoing 08/27/2015 None hypertension Onset of Symptom during adulthood 08/27/2015 None hypertension Blood Pressure Values patient checking blood pressure at home - did not bring in readings 08/27/2015 None hypertension Severity not consistently severe symptoms, the symptoms fluctuate from no symptoms to anxiety and headaches 08/27/2015 None hypertension Frequency of Episodes unchanged 08/27/2015 None hypertension Triggers no known associated factors 08/27/2015 None hypertension Alleviating Factors medication 08/27/2015 None hypertension Pertinent Findings Denies dizziness 08/27/2015 None hypertension Pertinent Findings Denies dyspnea 08/27/2015 None diabetes mellitus Quality non-insulin dependent 08/27/2015 None diabetes mellitus Severity mild 08/27/2015 None diabetes mellitus Alleviating Factors diet 08/27/2015 None diabetes mellitus Pertinent Findings Denies dizziness 08/27/2015 None diabetes mellitus Pertinent Findings Denies dyspnea 08/27/2015 None diabetes mellitus Onset of Symptom onset as an adult 08/27/2015 None hypertension Quality intermittent 06/06/2015 None hypertension Onset and Resolution ongoing 06/06/2015 None hypertension Onset of Symptom during adulthood 06/06/2015 None hypertension Blood Pressure Values patient checking blood pressure at home - did not bring in readings 06/06/2015 None hypertension Severity not consistently severe symptoms, the symptoms fluctuate from no symptoms to anxiety and headaches 06/06/2015 None hypertension Frequency of Episodes unchanged 06/06/2015 None hypertension Triggers no known associated factors 06/06/2015 None hypertension Alleviating Factors medication 06/06/2015 None hypertension Pertinent Findings Denies dizziness 06/06/2015 None hypertension Pertinent Findings Denies dyspnea 06/06/2015 None diabetes mellitus Quality non-insulin dependent 06/06/2015 None diabetes mellitus Severity mild 06/06/2015 None diabetes mellitus Alleviating Factors diet 06/06/2015 None diabetes mellitus Pertinent Findings Denies dizziness 06/06/2015 None diabetes mellitus Pertinent Findings Denies dyspnea 06/06/2015 None diabetes mellitus Onset of Symptom onset as an adult 06/06/2015 None neck pain Location in the cervical spine 06/06/2015 getting PT neck pain Quality chronic 06/06/2015 None neck pain Onset and Resolution ongoing 06/06/2015 None neck pain Onset of Symptom _ months ago 06/06/2015 None neck pain Limitation on Activities does not limit activities 06/06/2015 None neck pain Frequency of Episodes on and off 06/06/2015 None neck pain Timing of Episodes at night 06/06/2015 None neck pain Significant Medical Conditions spinal stenosis 06/06/2015 None neck pain Triggers activity 06/06/2015 None neck pain Alleviating Factors physical therapy 06/06/2015 None neck pain Exacerbating Factors activity 06/06/2015 None neck pain Initial treatment physical therapy 06/06/2015 None neck pain Severity mild 06/06/2015 None neck pain Location in the cervical spine 04/30/2015 None neck pain Quality dull 04/30/2015 None neck pain Quality aching 04/30/2015 None neck pain Quality constant 04/30/2015 None neck pain Onset and Resolution gradual in onset 04/30/2015 1 MONTH AGO muscle weakness Quality both sides 04/30/2015 None muscle weakness Quality upper extremities 04/30/2015 None muscle weakness Onset and Resolution gradual in onset 04/30/2015 None muscle weakness Location diffusely 04/30/2015 None muscle weakness Limitation on Activities moderately limits activities 04/30/2015 None muscle weakness Frequency of Episodes daily 04/30/2015 None neck pain Limitation on Activities moderately limits activities 04/30/2015 None neck pain Frequency of Episodes daily 04/30/2015 None neck and arm pain Radiating the left upper extremity 04/30/2015 None neck and arm pain Radiating the right upper extremity 04/30/2015 None neck and arm pain Quality numbness 04/30/2015 None neck and arm pain Quality burning sensation 04/30/2015 None neck and arm pain Quality intermittent 04/30/2015 None neck and arm pain Quality tingling 04/30/2015 None hypertension Quality intermittent 04/23/2015 None hypertension Onset and Resolution ongoing 04/23/2015 None hypertension Onset of Symptom during adulthood 04/23/2015 None hypertension Blood Pressure Values patient checking blood pressure at home - did not bring in readings 04/23/2015 None hypertension Severity not consistently severe symptoms, the symptoms fluctuate from no symptoms to anxiety and headaches 04/23/2015 None hypertension Frequency of Episodes unchanged 04/23/2015 None hypertension Triggers no known associated factors 04/23/2015 None hypertension Alleviating Factors medication 04/23/2015 None hypertension Pertinent Findings Denies dizziness 04/23/2015 None hypertension Pertinent Findings Denies dyspnea 04/23/2015 None diabetes mellitus Quality non-insulin dependent 04/23/2015 None diabetes mellitus Severity mild 04/23/2015 None diabetes mellitus Alleviating Factors diet 04/23/2015 None diabetes mellitus Pertinent Findings Denies dizziness 04/23/2015 None diabetes mellitus Pertinent Findings Denies dyspnea 04/23/2015 None diabetes mellitus Onset of Symptom onset as an adult 04/23/2015 None neck pain Location in the cervical spine 04/23/2015 getting PT neck pain Quality chronic 04/23/2015 None neck pain Onset and Resolution ongoing 04/23/2015 None neck pain Onset of Symptom _ months ago 04/23/2015 None neck pain Limitation on Activities does not limit activities 04/23/2015 None neck pain Frequency of Episodes on and off 04/23/2015 None neck pain Timing of Episodes at night 04/23/2015 None neck pain Significant Medical Conditions spinal stenosis 04/23/2015 None neck pain Triggers activity 04/23/2015 None neck pain Alleviating Factors physical therapy 04/23/2015 None neck pain Exacerbating Factors activity 04/23/2015 None neck pain Initial treatment physical therapy 04/23/2015 None neck pain Severity mild 04/23/2015 None hypertension Quality intermittent 03/04/2015 None hypertension Onset and Resolution ongoing 03/04/2015 None hypertension Onset of Symptom during adulthood 03/04/2015 None hypertension Severity not consistently severe symptoms, the symptoms fluctuate from no symptoms to anxiety and headaches 03/04/2015 None hypertension Frequency of Episodes unchanged 03/04/2015 None hypertension Triggers no known associated factors 03/04/2015 None hypertension Alleviating Factors medication 03/04/2015 None hypertension Pertinent Findings Denies dizziness 03/04/2015 None hypertension Pertinent Findings Denies dyspnea 03/04/2015 None hypothyroid Quality stable 03/04/2015 None hypothyroid Severity mild with subclinical signs 03/04/2015 None hypothyroid Frequency of Episodes unchanged 03/04/2015 None hypothyroid Triggers no known associated factors 03/04/2015 None hypothyroid Pertinent Findings edema 03/04/2015 left foot diabetes mellitus Quality non-insulin dependent 03/04/2015 None diabetes mellitus Severity mild 03/04/2015 None diabetes mellitus Alleviating Factors diet 03/04/2015 None diabetes mellitus Pertinent Findings Denies dizziness 03/04/2015 None diabetes mellitus Pertinent Findings Denies dyspnea 03/04/2015 None back pain Location diffusely 03/04/2015 None back pain Quality intermittent 03/04/2015 None back pain Onset of Symptom _ years ago 03/04/2015 None hypertension Blood Pressure Values patient checking blood pressure at home - did not bring in readings 03/04/2015 None diabetes mellitus Test results Pt checking blood glucose readings, did not bring results to clinic 03/04/2015 None diabetes mellitus Blood glucose levels greater than 120 03/04/2015 around 120s- 130s in the morning diabetes mellitus Exercise no exercise 03/04/2015 None diabetes mellitus Onset of Symptom onset as an adult 03/04/2015 None diabetes mellitus Glucose monitoring daily 03/04/2015 None hypertension Quality intermittent 12/04/2014 None back pain Location diffusely 12/04/2014 has had muscle relaxers #100 and just now using them. back pain Quality intermittent 12/04/2014 None back pain Onset of Symptom _ years ago 12/04/2014 None diabetes mellitus Quality non-insulin dependent 12/04/2014 None diabetes mellitus Test results Pt checking blood glucose readings, did not bring results to clinic 12/04/2014 None diabetes mellitus Blood glucose levels between 60 and 120 12/04/2014 None diabetes mellitus Blood glucose levels greater than 120 12/04/2014 None diabetes mellitus Glucose monitoring occasional glucose testing 12/04/2014 None diabetes mellitus Pertinent Findings Denies dizziness 12/04/2014 None diabetes mellitus Pertinent Findings Denies dyspnea 12/04/2014 None hypothyroid Quality stable 12/04/2014 None hypothyroid Pertinent Findings edema 12/04/2014 left foot hypertension Onset and Resolution ongoing 12/04/2014 None hypertension Onset of Symptom during adulthood 12/04/2014 None hypertension Blood Pressure Values not checking blood pressure at home 12/04/2014 None hypertension Severity not consistently severe symptoms, the symptoms fluctuate from no symptoms to anxiety and headaches 12/04/2014 None hypertension Frequency of Episodes unchanged 12/04/2014 None hypertension Triggers no known associated factors 12/04/2014 None hypertension Alleviating Factors medication 12/04/2014 None hypertension Pertinent Findings Denies dizziness 12/04/2014 None hypertension Pertinent Findings Denies dyspnea 12/04/2014 None hypothyroid Severity mild with subclinical signs 12/04/2014 None hypothyroid Frequency of Episodes unchanged 12/04/2014 None hypothyroid Triggers no known associated factors 12/04/2014 None diabetes mellitus Severity mild 12/04/2014 None diabetes mellitus Alleviating Factors diet 12/04/2014 None diabetes mellitus Exercise minimal exercise 12/04/2014 None Advance Directives No Advance Directive data Encounters Encounter Performer Location Codes Date () 27247 EST. PATIENT, LEVEL IV Diagnosis: Pain in thoracic spine[ICD10: M54.6] Diagnosis: Low back pain[ICD10: M54.5] Diagnosis: Mild cognitive impairment, so stated[ICD10: G31.84] Shalini Iyer MD, [facility] CPT-4: 26755 03/03/2018 51771 EST. PATIENT, LEVEL IV Diagnosis: Essential (primary) hypertension[ICD10: I10] Diagnosis: Type 2 diabetes mellitus without complications[ICD10: E11.9] Diagnosis: Hypothyroidism, unspecified[ICD10: E03.9] Diagnosis: Mixed hyperlipidemia[ICD10: E78.2] Diagnosis: Other allergic rhinitis[ICD10: J30.89] Shalini Iyer MD, [facility] CPT-4: 77204 01/10/2018 12751 EST. PATIENT, LEVEL II Diagnosis: Laceration without foreign body of left forearm, initial encounter[ ICD10: S51.812A] Shalini Iyer MD, [facility] CPT-4: 31335 12/16/2017 ([id number]) 01971 EST. PATIENT, LEVEL I Diagnosis: Laceration without foreign body of left hand, initial encounter[ICD10 : S61.412A] Ayana Iyer MD, [facility] CPT-4: 16506 20330 EST. PATIENT, LEVEL III Diagnosis: Dizziness and giddiness[ICD10: R42] Diagnosis: Syncope and collapse[ICD10: R55] Diagnosis: Other allergic rhinitis[ICD10: J30.89] Zenobia Iyer MD, [facility] CPT-4: 18813 10/13/2017 ([id number]) 54315 EST. PATIENT, LEVEL IV Diagnosis: Type 2 diabetes mellitus without complications[ICD10: E11.9] Diagnosis: Essential (primary) hypertension[ICD10: I10] Diagnosis: Mixed hyperlipidemia[ICD10: E78.2] Diagnosis: Hypothyroidism, unspecified[ICD10: E03.9] Shalini Iyer MD, [facility] CPT-4: 78997 10/04/2017 ([id number]) 38096 EST. PATIENT, LEVEL III Diagnosis: Essential (primary) hypertension[ICD10: I10] Diagnosis: Type 2 diabetes mellitus without complications[ICD10: E11.9] Diagnosis: Cough[ICD10: R05] Ayana Iyer MD, [facility] CPT-4: 34883 09/01/2017 14507 EST. PATIENT, LEVEL IV Diagnosis: Cough[ICD10: R05] Diagnosis: Acute bronchitis due to other specified organisms[ICD10: J20.8] Zenobia Iyer MD, [facility] CPT-4: 34727 08/18/2017 ([id number]) 93860 EST. PATIENT, LEVEL III Diagnosis: Cough[ICD10: R05] Diagnosis: Acute bronchitis due to other specified organisms[ICD10: J20.8] Ayana Iyer MD, [facility] CPT-4: 05743 08/03/2017 ([id number]) 83939 EST. PATIENT, LEVEL III Diagnosis: Essential (primary) hypertension[ICD10: I10] Shalini Iyer MD, [facility] CPT-4: 89105 07/05/2017 ([id number]) 18788 EST. PATIENT, LEVEL IV Diagnosis: Essential (primary) hypertension[ICD10: I10] Diagnosis: Type 2 diabetes mellitus without complications[ICD10: E11.9] Diagnosis: Hypothyroidism, unspecified[ICD10: E03.9] Shalini Iyer MD, [facility] CPT-4: 79942 04/23/2017 ([id number]) 45768 EST. PATIENT, LEVEL III Diagnosis: Other allergic rhinitis[ICD10: J30.89] Shalini Iyer MD, [facility] CPT-4: 35539 04/08/2017 ([id number]) 99234 EST. PATIENT, LEVEL IV Diagnosis: Type 2 diabetes mellitus without complications[ICD10: E11.9] Diagnosis: Essential (primary) hypertension[ICD10: I10] Diagnosis: Hypothyroidism, unspecified[ICD10: E03.9] Diagnosis: Allergic rhinitis due to pollen[ICD10: J30.1] Shalini Iyer MD, [facility] CPT-4: 80120 01/21/2017 ([id number]) 15889 EST. PATIENT, LEVEL IV Diagnosis: Essential (primary) hypertension[ICD10: I10] Diagnosis: Mixed hyperlipidemia[ICD10: E78.2] Diagnosis: Hypothyroidism, unspecified[ICD10: E03.9] Diagnosis: Pain in left knee[ICD10: M25.562] Diagnosis: Type 2 diabetes mellitus without complications[ICD10: E11.9] Shalini Iyer MD, [facility] CPT-4: 66614 10/19/2016 ([id number]) 23423 EST. PATIENT, LEVEL IV Diagnosis: Essential (primary) hypertension[ICD10: I10] Diagnosis: Type 2 diabetes mellitus without complications[ICD10: E11.9] Diagnosis: Hypothyroidism, unspecified[ICD10: E03.9] Diagnosis: Mixed hyperlipidemia[ICD10: E78.2] Shalini Iyer MD, [facility] CPT-4: 87918 07/23/2016 ([id number]) 99125 EST. PATIENT, LEVEL III Diagnosis: Acute recurrent maxillary sinusitis[ICD10: J01.01] Shalini Iyer MD, [facility] CPT-4: 23193 05/19/2016 ([id number]) 50208 EST. PATIENT, LEVEL III Diagnosis: Type 2 diabetes mellitus without complications[ICD10: E11.9] Diagnosis: Essential (primary) hypertension[ICD10: I10] Diagnosis: Allergic rhinitis due to pollen[ICD10: J30.1] Shalini Iyer MD, [facility] CPT-4: 50572 04/21/2016 ([id number]) 47900 EST. PATIENT, LEVEL III Diagnosis: Pain in left knee[ICD10: M25.562] Diagnosis: Localized edema[ICD10: R60.0] Shalini Iyer MD, [facility] CPT-4: 66811 03/26/2016 ([id number]) 51603 EST. PATIENT, LEVEL IV Diagnosis: Essential (primary) hypertension[ICD10: I10] Diagnosis: Type 2 diabetes mellitus without complications[ICD10: E11.9] Diagnosis: Pain in right shoulder[ICD10: M25.511] Shalini Iyer MD, [facility] CPT-4: 38133 01/27/2016 ([id number]) 69439 EST. PATIENT, LEVEL IV Diagnosis: Essential (primary) hypertension[ICD10: I10] Diagnosis: Allergic rhinitis due to pollen[ICD10: J30.1] Diagnosis: Type 2 diabetes mellitus without complications[ICD10: E11.9] Diagnosis: Hypothyroidism, unspecified[ICD10: E03.9] Shalini Iyer MD, [facility] CPT-4: 09913 10/28/2015 ([id number]) 58718 EST. PATIENT, LEVEL IV Diagnosis: Essential (primary) hypertension[ICD10: I10] Diagnosis: Type 2 diabetes mellitus without complications[ICD10: E11.9] Diagnosis: Hypothyroidism, unspecified[ICD10: E03.9] Diagnosis: Lichen planus, unspecified[ICD10: L43.9] Shalini Iyer MD, [facility] CPT-4: 21176 08/27/2015 ([id number]) 52007 EST. 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 PATIENT, LEVEL III Diagnosis: Cervicalgia[ICD10: M54.2] Shalini Iyer MD, [facility] CPT-4: 36654 04/30/2015 ([id number]) 54420 EST. PATIENT, LEVEL III Diagnosis: Essential (primary) hypertension[ICD10: I10] Diagnosis: Type 2 diabetes mellitus without complications[ICD10: E11.9] Diagnosis: Primary osteoarthritis, unspecified site[ICD10: M19.91] Shalini Iyer MD, [facility] CPT-4: 38740 04/23/2015 ([id number]) 92971 EST. PATIENT, LEVEL IV Diagnosis: ESSENTIAL HYPERTENSION[ICD9: 401.9] Diagnosis: DIABETES TYPE II[ICD9: 250.00] Diagnosis: Osteoarthritis[ICD9: 715.90] Shalini Iyer MD, [facility] CPT-4: 63943 03/04/2015 ([id number]) OFFICE VISIT, NEW - LEVEL 4 Diagnosis: ESSENTIAL HYPERTENSION[ICD9: 401.9] Diagnosis: Hypothyroidism[ICD9: 244.9] Diagnosis: DIABETES TYPE II[ICD9: 250.00] Diagnosis: ACTINIC KERATOSIS[ICD9: 702.0] Shalini Iyer MD, [facility] CPT-4: 73272 12/04/2014 Plan of Care Planned Activity Notes Codes Status Date Visit Plan: Thoracic and lumbar spine pain -recommend xrays for further evaluation -discussed rest, ice and anti inflammatories Mild Cognitive Impairment - discussed with pt and family the diagnosis, pt is not yet in category of dementia, but is in danger of approaching that level of memory loss. Treatment modalities have been discussed and pt is considering different treatment options. We will follow up with treatment at next office visit after review of testing. 03/03/2018 Appointment: Shalini Mitchell WPtel: [address] [place], [place] [id number] [place] (15 min) Moderate 03/03/2018 Patient Education: Patient Medication Summary Completed 03/03/2018 Visit Plan: Hypertension - well controlled - continue with current medications, continue with no added salt diet. Pt has been encouraged to exercise daily. The pt has been advised to call the office if there are any acute concerns about change in blood pressure readings at home. Diabetes Mellitus - controlled - per recent FSBS reports. I have recommended for the patient to have follow up labs prior to the next office visit. The patient has been instructed to continue with current medications as previously directed, continue with regular FSBS monitoring to assure continued control of diabetes. Pt to call for any acute concerns, complaints, or if the blood glucose readings are starting to become less controlled. Hypothyroidism - pt with chronic hypothyroidism, continue with current medication, will monitor pt to signs or symptoms of lack of adequate supplementation. Pt is to continue with current dose of medication unless directed otherwise. Check labs at regular intervals wither q 3 months or q 6 months based on previous levels of control. Hyperlipidemia - pt has been counseled about appropriate diet, exercise, and need for low fat food choices. I have discussed the need for the patient to take medications as prescribed. If the patient has negative side effects from the medication, they are to CALL the office and not abruptly discontinue the medication without discussion with a practitioner in the office. We will check labs in 3-6 months for follow up on the patient's chronic medical problem and to assure normal liver response to medications. Allergies - chronic - recommended pt to use allergy medication as prescribed. Pt has been counseled as to the appropriate use of the medication. Pt to call if allergy symptoms are not controlled with the medication. If using nasal spray, instructions as follows: Nasal spray- use twice daily, one spray per nostril twice daily, after 30 minutes, rinse out nose with saline spray.. Use opposite hand per nostril to spray in the nasal steroid allergy spray. 01/10/2018 Appointment: Shalini Mitchell WPtel: [address] [place], [place] [phone] [place] (15 min) Moderate 01/10/2018 Patient Education: Patient Medication Summary Completed 01/10/2018 Visit Plan: Wound Instructions - Pt was instructed to keep the wound clean, wash with antibacterial soap, use triple antibiotic ointment, call if redness, pustular drainage, or any other acute concerns. 12/16/2017 Appointment: Shalini Mitchell WPtel: [facility]5 [phone] (10 min) Simple 12/16/2017 Patient Education: Patient Medication Summary Completed 12/16/2017 Visit Plan: Skin tear left hand - cleansed and dressed by staff. 11/10/2017 Appointment: Nurse Visit 11/10/2017 Patient Education: Patient Medication Summary Completed 11/10/2017 Visit Plan: Allergies - chronic - recommended pt to use allergy medication as prescribed. Pt has been counseled as to the appropriate use of the medication. Pt to call if allergy symptoms are not controlled with the medication. If using nasal spray, instructions as follows: Nasal spray- use twice daily, one spray per nostril twice daily, after 30 minutes, rinse out nose with saline spray.. Use opposite hand per nostril to spray in the nasal steroid allergy spray. Lightheadedness, dizziness - likely vagal response - pt states that he fell after having had a BM and standing up from the toilet. Denies any pain or head trauma. Discussed the need to increase fluid intake and the need to take his time while getting to his feet - pt is to notify clinic or go to the ER with any acute changes, questions, or concerns. 10/13/2017 Appointment: Zenobia Desouza WPtel: [facility] (30 min) Complex 10/13/2017 Patient Education: Patient Medication Summary Completed 10/13/2017 Appointment: Shalini Mitchell WPtel: [facility]8 [phone] (30 min) Complex 10/05/2017 Visit Plan: Diabetes Mellitus - controlled - per recent FSBS reports. I have recommended for the patient to have follow up labs prior to the next office visit. The patient has been instructed to continue with current medications as previously directed, continue with regular FSBS monitoring to assure continued control of diabetes. Pt to call for any acute concerns, complaints, or if the blood glucose readings are starting to become less controlled. Patient due for new diabetic shoes due to diabetes, poor circulation and history of callus. Will fax notes from today's visit. Hypertension - well controlled - continue with current medications, continue with no added salt diet. Pt has been encouraged to exercise daily. The pt has been advised to call the office if there are any acute concerns about change in blood pressure readings at home. Hypothyroidism - pt with chronic hypothyroidism , continue with current medication, will monitor pt to signs or symptoms of lack of adequate supplementation. Pt is to continue with current dose of medication unless directed otherwise. Check labs at regular intervals wither q 3 months or q 6 months based on previous levels of control. Hyperlipidemia - pt has been counseled about appropriate diet, exercise, and need for low fat food choices. I have discussed the need for the patient to take medications as prescribed. If the patient has negative side effects from the medication, they are to CALL the office and not abruptly discontinue the medication without discussion with a practitioner in the office. We will check labs in 3-6 months for follow up on the patient's chronic medical problem and to assure normal liver response to medications. 10/04/2017 Visit Plan: Diabetes Mellitus - controlled - per recent FSBS reports. I have recommended for the patient to have follow up labs prior to the next office visit. The patient has been instructed to continue with current medications as previously directed, continue with regular FSBS monitoring to assure continued control of diabetes. Pt to call for any acute concerns, complaints, or if the blood glucose readings are starting to become less controlled. Hypertension - well controlled - continue with current medications, continue with no added salt diet. Pt has been encouraged to exercise daily. The pt has been advised to call the office if there are any acute concerns about change in blood pressure readings at home. Hypothyroidism - pt with chronic hypothyroidism, continue with current medication, will monitor pt to signs or symptoms of lack of adequate supplementation. Pt is to continue with current dose of medication unless directed otherwise. Check labs at regular intervals wither q 3 months or q 6 months based on previous levels of control. Hyperlipidemia - pt has been counseled about appropriate diet, exercise, and need for low fat food choices. I have discussed the need for the patient to take medications as prescribed. If the patient has negative side effects from the medication, they are to CALL the office and not abruptly discontinue the medication without discussion with a practitioner in the office. We will check labs in 3-6 months for follow up on the patient's chronic medical problem and to assure normal liver response to medications. 10/04/2017 Visit Plan: Diabetes Mellitus - controlled - per recent FSBS reports. I have recommended for the patient to have follow up labs prior to the next office visit. The patient has been instructed to continue with current medications as previously directed, continue with regular FSBS monitoring to assure continued control of diabetes. Pt to call for any acute concerns, complaints, or if the blood glucose readings are starting to become less controlled. Patient due for new diabetic shoes due to diabetes, poor circulation and history of callus. Will fax notes from today's visit. Hypertension - well controlled - continue with current medications, continue with no added salt diet. Pt has been encouraged to exercise daily. The pt has been advised to call the office if there are any acute concerns about change in blood pressure readings at home. Hypothyroidism - pt with chronic hypothyroidism , continue with current medication, will monitor pt to signs or symptoms of lack of adequate supplementation. Pt is to continue with current dose of medication unless directed otherwise. Check labs at regular intervals wither q 3 months or q 6 months based on previous levels of control. Hyperlipidemia - pt has been counseled about appropriate diet, exercise, and need for low fat food choices. I have discussed the need for the patient to take medications as prescribed. If the patient has negative side effects from the medication, they are to CALL the office and not abruptly discontinue the medication without discussion with a practitioner in the office. We will check labs in 3-6 months for follow up on the patient's chronic medical problem and to assure normal liver response to medications. 10/04/2017 Appointment: Shalini Mitchell WPtel: [address] [place], [place] [phone] (30 min) [facility] 10/04/2017 Patient Education: Patient Medication Summary Completed 10/04/2017 Visit Plan: Hypertension - well controlled - continue with current medications, continue with no added salt diet. Pt has been encouraged to exercise daily. The pt has been advised to call the office if there are any acute concerns about change in blood pressure readings at home. Diabetes Mellitus - controlled - per recent FSBS reports. I have recommended for the patient to have follow up labs prior to the next office visit. The patient has been instructed to continue with current medications as previously directed, continue with regular FSBS monitoring to assure continued control of diabetes. Pt to call for any acute concerns, complaints, or if the blood glucose readings are starting to become less controlled. Cough - improved - finish antibiotics. 09/01/2017 Appointment: Ayana Iyer WPtel: 101[address] [phone] (15 min) Moderate 09/01/2017 Patient Education: Patient Medication Summary Completed 09/01/2017 Visit Plan: Bronchitis - acute case of bronchitis identified. Pt has been given antibiotics, steroids as appropriate, and pt has been instructed to call if symptoms are not improved, or if symptoms acutely worsen. 08/18/2017 Appointment: Zenobia Desouza WPtel: 1012 [facility]66[facility] (15 min) Moderate 08/18/2017 Patient Education: Patient Medication Summary Completed 08/18/2017 Visit Plan: Bronchitis - acute case of bronchitis identified. Pt has been given antibiotics, breathing treatments as appropriate, and pt has been instructed to call if symptoms are not improved, or if symptoms acutely worsen. 08/03/2017 Appointment: Ayana Iyer WPtel: [address] [phone] (15 min) Moderate 08/03/2017 Patient Education: Patient Medication Summary Completed 08/03/2017 Visit Plan: Hypertension - well controlled - continue with current medications, continue with no added salt diet. Pt has been encouraged to exercise daily. The pt has been advised to call the office if there are any acute concerns about change in blood pressure readings at home. 07/05/2017 Appointment: Shalini Mitchell WPtel: 1016 [phone] (30 min) Complex 07/05/2017 Patient Education: Patient Medication Summary Completed 07/05/2017 Patient Education: Patient Medication Summary Completed 04/30/2017 Care Plan: %Hba1C LOINC : 64269-9 Pending 04/30/2017 Visit Plan: Hypertension - well controlled - continue with current medications, continue with no added salt diet. Pt has been encouraged to exercise daily. The pt has been advised to call the office if there are any acute concerns about change in blood pressure readings at home. Diabetes Mellitus - I have recommended for the patient to have follow up labs prior to the next office visit. The patient has been instructed to continue with current medications as previously directed, continue with regular FSBS monitoring to assure continued control of diabetes. Pt to call for any acute concerns, complaints, or if the blood glucose readings are starting to become less controlled. Hypothyroidism - pt with chronic hypothyroidism, continue with current medication, will monitor pt to signs or symptoms of lack of adequate supplementation. Pt is to continue with current dose of medication unless directed otherwise. Check labs at regular intervals wither q 3 months or q 6 months based on previous levels of control. 04/23/2017 Appointment: Shalini Mitchell WPtel: [address] [place] [address] (30 min) Complex 04/23/2017 Patient Education: Patient Medication Summary Completed 04/23/2017 Visit Plan: Allergies - chronic - recommended pt to use allergy medication as prescribed. Pt has been counseled as to the appropriate use of the medication. Pt to call if allergy symptoms are not controlled with the medication. If using nasal spray, instructions as follows: Nasal spray- use twice daily, one spray per nostril twice daily, after 30 minutes, rinse out nose with saline spray.. Use opposite hand per nostril to spray in the nasal steroid allergy spray. 04/08/2017 Appointment: Shalini Mitchell WPtel: [address] [place] [address] (15 min) Moderate 04/08/2017 Patient Education: Patient Medication Summary Completed 04/08/2017 Appointment: Nurse Visit 04/02/2017 Appointment: Injection 04/01/2017 Patient Education: Patient Medication Summary Completed 04/01/2017 Visit Plan: Diabetes Mellitus - controlled - per recent FSBS reports. I have recommended for the patient to have follow up labs prior to the next office visit. The patient has been instructed to continue with current medications as previously directed, continue with regular FSBS monitoring to assure continued control of diabetes. Pt to call for any acute concerns, complaints, or if the blood glucose readings are starting to become less controlled. Hypertension - well controlled - continue with current medications, continue with no added salt diet. Pt has been encouraged to exercise daily. The pt has been advised to call the office if there are any acute concerns about change in blood pressure readings at home. Hypothyroidism - pt with chronic hypothyroidism, continue with current medication, will monitor pt to signs or symptoms of lack of adequate supplementation. Pt is to continue with current dose of medication unless directed otherwise. Check labs at regular intervals wither q 3 months or q 6 months based on previous levels of control. Allergies - chronic - recommended pt to use allergy medication as prescribed. Pt has been counseled as to the appropriate use of the medication. Pt to call if allergy symptoms are not controlled with the medication. If using nasal spray, instructions as follows: Nasal spray- use twice daily, one spray per nostril twice daily, after 30 minutes, rinse out nose with saline spray.. Use opposite hand per nostril to spray in the nasal steroid allergy spray. 01/21/2017 Appointment: Shalini Mitchell WPtel: [facility]5 [phone] (15 min) Moderate 01/21/2017 Patient Education: Patient Medication Summary Completed 01/21/2017 Appointment: Shalini Mitchell WPtel: [facility]5 [phone] (15 min) Moderate 01/18/2017 Visit Plan: Hypertension - well controlled - continue with current medications, continue with no added salt diet. Pt has been encouraged to exercise daily. The pt has been advised to call the office if there are any acute concerns about change in blood pressure readings at home. Hypothyroidism - pt with chronic hypothyroidism, continue with current medication, will monitor pt to signs or symptoms of lack of adequate supplementation. Pt is to continue with current dose of medication unless directed otherwise. Check labs at regular intervals wither q 3 months or q 6 months based on previous levels of control. Hyperlipidemia - pt has been counseled about appropriate diet, exercise, and need for low fat food choices. I have discussed the need for the patient to take medications as prescribed. If the patient has negative side effects from the medication, they are to CALL the office and not abruptly discontinue the medication without discussion with a practitioner in the office. We will check labs in 3-6 months for follow up on the patient's chronic medical problem and to assure normal liver response to medications. Diabetes Mellitus - controlled- I have recommended for the patient to have follow up labs prior to the next office visit. The patient has been instructed to continue with current medications as previously directed, continue with regular FSBS monitoring to assure continued control of diabetes. Pt to call for any acute concerns, complaints, or if the blood glucose readings are starting to become less controlled. Left knee pain-refer for PT if symptoms persist 10/19/2016 Visit Plan: Hypertension - well controlled - continue with current medications, continue with no added salt diet. Pt has been encouraged to exercise daily. The pt has been advised to call the office if there are any acute concerns about change in blood pressure readings at home. Hypothyroidism - pt with chronic hypothyroidism, continue with current medication, will monitor pt to signs or symptoms of lack of adequate supplementation. Pt is to continue with current dose of medication unless directed otherwise. Check labs at regular intervals wither q 3 months or q 6 months based on previous levels of control. Hyperlipidemia - pt has been counseled about appropriate diet, exercise, and need for low fat food choices. I have discussed the need for the patient to take medications as prescribed. If the patient has negative side effects from the medication, they are to CALL the office and not abruptly discontinue the medication without discussion with a practitioner in the office. We will check labs in 3-6 months for follow up on the patient's chronic medical problem and to assure normal liver response to medications. Diabetes Mellitus - controlled- I have recommended for the patient to have follow up labs prior to the next office visit. The patient has been instructed to continue with current medications as previously directed, continue with regular FSBS monitoring to assure continued control of diabetes. Pt to call for any acute concerns, complaints, or if the blood glucose readings are starting to become less controlled. Left knee pain-refer for PT if symptoms persist 10/19/2016 Appointment: Shalini Mitchell WPtel: [address] [place], [place] [id number] (30 min) [facility] 10/19/2016 Patient Education: Patient Medication Summary Completed 10/19/2016 Visit Plan: Hypertension - well controlled - continue with current medications, continue with no added salt diet. Pt has been encouraged to exercise daily. The pt has been advised to call the office if there are any acute concerns about change in blood pressure readings at home. Diabetes Mellitus - controlled - per recent FSBS reports. I have recommended for the patient to have follow up labs prior to the next office visit. The patient has been instructed to continue with current medications as previously directed, continue with regular FSBS monitoring to assure continued control of diabetes. Pt to call for any acute concerns, complaints, or if the blood glucose readings are starting to become less controlled. Hypothyroidism - pt with chronic hypothyroidism, continue with current medication, will monitor pt to signs or symptoms of lack of adequate supplementation. Pt is to continue with current dose of medication unless directed otherwise. Check labs at regular intervals wither q 3 months or q 6 months based on previous levels of control. Hyperlipidemia - pt has been counseled about appropriate diet, exercise, and need for low fat food choices. I have discussed the need for the patient to take medications as prescribed. If the patient has negative side effects from the medication, they are to CALL the office and not abruptly discontinue the medication without discussion with a practitioner in the office. We will check labs in 3-6 months for follow up on the patient's chronic medical problem and to assure normal liver response to medications. 07/23/2016 Appointment: Shalini Mitchell WPtel: [facility]5 [phone] (30 min) Complex 07/23/2016 Patient Education: Patient Medication Summary Completed 07/23/2016 Visit Plan: Sinusitis - Pt has acute infection - pain in face, maxillary region, Pt informed to use decongestant, RX given to patient, sinus rinses also recommended. Call if symptoms do not show improvement. Kenalog injection today in the office. 05/19/2016 Appointment: Shalini Mitchell WPtel: [facility]5 [phone] (15 min) Moderate 05/19/2016 Patient Education: Patient Medication Summary Completed 05/19/2016 Appointment: Injection 05/12/2016 Patient Education: Patient Medication Summary Completed 05/12/2016 Appointment: Injection 05/05/2016 Patient Education: Patient Medication Summary Completed 05/05/2016 Appointment: Shalini Mitchell WPtel: [facility]8 [phone] (30 min) Complex 05/01/2016 Appointment: Injection 04/24/2016 Patient Education: Patient Medication Summary Completed 04/24/2016 Visit Plan: Diabetes Mellitus -I have recommended for the patient to have follow up labs prior to the next office visit. The patient has been instructed to continue with current medications as previously directed, continue with regular FSBS monitoring to assure continued control of diabetes. Pt to call for any acute concerns, complaints, or if the blood glucose readings are starting to become less controlled. Hypertension - well controlled - continue with current medications, continue with no added salt diet. Pt has been encouraged to exercise daily. The pt has been advised to call the office if there are any acute concerns about change in blood pressure readings at home. Allergies - chronic - recommended pt to use allergy medication as prescribed. Pt has been counseled as to the appropriate use of the medication. Pt to call if allergy symptoms are not controlled with the medication. If using nasal spray, instructions as follows: Nasal spray- use twice daily, one spray per nostril twice daily, after 30 minutes, rinse out nose with saline spray.. Use opposite hand per nostril to spray in the nasal steroid allergy spray. 04/21/2016 Appointment: [phone] (30 min) Complex 04/21/2016 Patient Education: Patient Medication Summary Completed 04/21/2016 Visit Plan: Left knee pain-continue rest, ice, and anti inflammatories as needed-call if pain does not resolve or if any worse. Edema - pt has been advised to elevate legs to prevent dependent edema, compression has been recommended to help to naturally decrease peripheral edema. Diuretic use has been discussed and pt has been instructed in appropriate use of such medication as necessary to further attempt to reduce peripheral edema. 03/26/2016 Appointment: Shalini Mitchell [facility]Ptel[phone] (15 min) Moderate 03/26/2016 Patient Education: Patient Medication Summary Completed 03/26/2016 Visit Plan: Hypertension - well controlled - continue with current medications, continue with no added salt diet. Pt has been encouraged to exercise daily. The pt has been advised to call the office if there are any acute concerns about change in blood pressure readings at home. Diabetes Mellitus - controlled - per recent FSBS reports. I have recommended for the patient to have follow up labs prior to the next office visit. The patient has been instructed to continue with current medications as previously directed, continue with regular FSBS monitoring to assure continued control of diabetes. Pt to call for any acute concerns, complaints, or if the blood glucose readings are starting to become less controlled. Right shoulder pain-refer for PT at [facility] 01/27/2016 Appointment: (30 min) Complex 01/27/2016 Patient Education: Patient Medication Summary Completed 01/27/2016 Appointment: (30 min) Complex 11/26/2015 Visit Plan: Hypertension - well controlled - continue with current medications, continue with no added salt diet. Pt has been encouraged to exercise daily. The pt has been advised to call the office if there are any acute concerns about change in blood pressure readings at home. Allergies - chronic - recommended pt to use allergy medication as prescribed. Pt has been counseled as to the appropriate use of the medication. Pt to call if allergy symptoms are not controlled with the medication. If using nasal spray, instructions as follows: Nasal spray- use twice daily, one spray per nostril twice daily, after 30 minutes, rinse out nose with saline spray.. Use opposite hand per nostril to spray in the nasal steroid allergy spray. Diabetes Mellitus - controlled - per recent FSBS reports. I have recommended for the patient to have follow up labs prior to the next office visit. The patient has been instructed to continue with current medications as previously directed, continue with regular FSBS monitoring to assure continued control of diabetes. Pt to call for any acute concerns, complaints, or if the blood glucose readings are starting to become less controlled. Hypothyroidism - pt with chronic hypothyroidism, continue with current medication, will monitor pt to signs or symptoms of lack of adequate supplementation. Pt is to continue with current dose of medication unless directed otherwise. Check labs at regular intervals wither q 3 months or q 6 months based on previous levels of control. 10/28/2015 Patient Education: Patient Medication Summary Completed 10/28/2015 Patient Education: Hypertension Completed 10/28/2015 Visit Plan: Hypertension - well controlled - continue with current medications, continue with no added salt diet. Pt has been encouraged to exercise daily. The pt has been advised to call the office if there are any acute concerns about change in blood pressure readings at home. Diabetes Mellitus - controlled - per recent FSBS reports. I have recommended for the patient to have follow up labs prior to the next office visit. The patient has been instructed to continue with current medications as previously directed, continue with regular FSBS monitoring to assure continued control of diabetes. Pt to call for any acute concerns, complaints, or if the blood glucose readings are starting to become less controlled. Hypothyroidism - pt with chronic hypothyroidism, continue with current medication, will monitor pt to signs or symptoms of lack of adequate supplementation. Pt is to continue with current dose of medication unless directed otherwise. Check labs at regular intervals wither q 3 months or q 6 months based on previous levels of control. 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 Pt has been encouraged to exercise daily. The pt has been advised to call the office if there are any acute concerns about change in blood pressure readings at home. Diabetes Mellitus - controlled - per recent FSBS reports. I have recommended for the patient to have follow up labs prior to the next office visit. The patient has been instructed to continue with current medications as previously directed, continue with regular FSBS monitoring to assure continued control of diabetes. Pt to call for any acute concerns, complaints, or if the blood glucose readings are starting to become less controlled. Hypothyroidism - pt with chronic hypothyroidism, continue with current medication, will monitor pt to signs or symptoms of lack of adequate supplementation. Pt is to continue with current dose of medication unless directed otherwise. Check labs at regular intervals wither q 3 months or q 6 months based on previous levels of control. [facility] ffjfsq-fvvsk-[facility] doxycycline per Dr Eduardo centeno-check labs- continue clobetasol 08/27/2015 Patient Education: Patient Medication Summary Completed 08/27/2015 Patient Education: Hypertension Completed 08/27/2015 Visit Plan: Hypertension - well controlled - continue with current medications, continue with no added salt diet. Pt has been encouraged to exercise daily. The pt has been advised to call the office if there are any acute concerns about change in blood pressure readings at home. Cervical stenosis-surgery scheduled with Dr Moraes in 06/06/2015 Appointment: (30 min) Complex 06/06/2015 Patient Education: Patient Medication Summary Completed 06/06/2015 Patient Education: Hypertension Completed 06/06/2015 Visit Plan: Neck pain-not improving with physical therapy- recommend xray of cervical spine and proceed with MRI if indicated. Patient verbalized understanding of plan. 04/30/2015 Visit Plan: Neck pain-not improving with physical therapy- recommend xray of cervical spine and proceed with MRI if indicated. Patient verbalized understanding of plan. Patient with significant symptoms of neck pain , numbness and tingling bilateral arms and bilateral upper extremity weakness- schedule MRI and refer to neurosurgeon of choice. 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 Pt has been encouraged to exercise daily. The pt has been advised to call the office if there are any acute concerns about change in blood pressure readings at home. Diabetes Mellitus - controlled - per recent FSBS reports. I have recommended for the patient to have follow up labs prior to the next office visit. The patient has been instructed to continue with current medications as previously directed, continue with regular FSBS monitoring to assure continued control of diabetes. Pt to call for any acute concerns, complaints, or if the blood glucose readings are starting to become less controlled. OA-neck, back, ankles-patient currently doing physical therapy -continue current treatment-temporary handicap application completed for patient-he is unable to walk 100 feet without stopping to rest. 04/23/2015 Appointment: (15 min) Moderate 04/23/2015 Patient Education: Patient Medication Summary Completed 04/23/2015 Patient Education: Hypertension Completed 04/23/2015 Visit Plan: Hypertension - well controlled - continue with current medications, continue with no added salt diet. Pt has been encouraged to exercise daily. The pt has been advised to call the office if there are any acute concerns about change in blood pressure readings at home. Diabetes Mellitus - controlled - per recent FSBS reports. I have recommended for the patient to have follow up labs prior to the next office visit. The patient has been instructed to continue with current medications as previously directed, continue with regular FSBS monitoring to assure continued control of diabetes. Pt to call for any acute concerns, complaints, or if the blood glucose readings are starting to become less controlled. OA-ok to start glucosamine 1 tab twice daily 03/04/2015 Appointment: Follow up 03/04/2015 Patient Education: Patient Medication Summary Completed 03/04/2015 Patient Education: Hypertension Completed 03/04/2015 Visit Plan: Hypertension - well controlled - continue with current medications, continue with no added salt diet. Pt has been encouraged to exercise daily. The pt has been advised to call the office if there are any acute concerns about change in blood pressure readings at home. Hypothyroidism - pt with chronic hypothyroidism, continue with current medication, will monitor pt to signs or symptoms of lack of adequate supplementation. Pt is to continue with current dose of medication unless directed otherwise. Check labs at regular intervals wither q 3 months or q 6 months based on previous levels of control. Diabetes Mellitus - controlled - per recent FSBS reports. I have recommended for the patient to have follow up labs prior to the next office visit. The patient has been instructed to continue with current medications as previously directed, continue with regular FSBS monitoring to assure continued control of diabetes. Pt to call for any acute concerns, complaints, or if the blood glucose readings are starting to become less controlled. Actinic keratosis left cheek x 3-liquid nitrogen to lesions x 3 12/04/2014 Visit Plan: Hypertension - well controlled - continue with current medications, continue with no added salt diet. Pt has been encouraged to exercise daily. The pt has been advised to call the office if there are any acute concerns about change in blood pressure readings at home. Hypothyroidism - pt with chronic hypothyroidism, continue with current medication, will monitor pt to signs or symptoms of lack of adequate supplementation. Pt is to continue with current dose of medication unless directed otherwise. Check labs at regular intervals wither q 3 months or q 6 months based on previous levels of control. Diabetes Mellitus - controlled - per recent FSBS reports. I have recommended for the patient to have follow up labs prior to the next office visit. The patient has been instructed to continue with current medications as previously directed, continue with regular FSBS monitoring to assure continued control of diabetes. Pt to call for any acute concerns, complaints, or if the blood glucose readings are starting to become less controlled. Actinic keratosis left cheek x 3-liquid nitrogen to lesions x 3 12/04/2014 Visit Plan: Hypertension - well controlled - continue with current medications, continue with no added salt diet. Pt has been encouraged to exercise daily. The pt has been advised to call the office if there are any acute concerns about change in blood pressure readings at home. Hypothyroidism - pt with chronic hypothyroidism, continue with current medication, will monitor pt to signs or symptoms of lack of adequate supplementation. Pt is to continue with current dose of medication unless directed otherwise. Check labs at regular intervals wither q 3 months or q 6 months based on previous levels of control. Diabetes Mellitus - controlled - per recent FSBS reports. I have recommended for the patient to have follow up labs prior to the next office visit. The patient has been instructed to continue with current medications as previously directed, continue with regular FSBS monitoring to assure continued control of diabetes. Pt to call for any acute concerns, complaints, or if the blood glucose readings are starting to become less controlled. Actinic keratosis left cheek x 3-liquid nitrogen to lesions x 3 12/04/2014 Appointment: (S) New Patient 12/04/2014 Patient Education: Patient Medication Summary Completed 12/04/2014 Patient Education: Hypertension Completed 12/04/2014 Care Plan: COMPLETE CBC AUTOMATED LOINC : 28354-6 Ordered 12/04/2014 Instructions Comment . Skin tear left hand - cleansed and dressed by staff. SWITCH BACK TO [facility] DAILY FOR ALLERGY SYMPTOMS CHECK LABS AFTER November-ORDER PROVIDED . Hypertension - well controlled - continue with current medications, continue with no added salt diet. Pt has been encouraged to exercise daily. The pt has been advised to call the office if there are any acute concerns about change in blood pressure readings at home. Allergies - chronic - recommended pt to use allergy medication as prescribed. Pt has been counseled as to the appropriate use of the medication. Pt to call if allergy symptoms are not controlled with the medication. If using nasal spray, instructions as follows: Nasal spray- use twice daily, one spray per nostril twice daily, after 30 minutes, rinse out nose with saline spray.. Use opposite hand per nostril to spray in the nasal steroid allergy spray. Diabetes Mellitus - controlled - per recent FSBS reports. I have recommended for the patient to have follow up labs prior to the next office visit. The patient has been instructed to continue with current medications as previously directed, continue with regular FSBS monitoring to assure continued control of diabetes. Pt to call for any acute concerns, complaints, or if the blood glucose readings are starting to become less controlled. Hypothyroidism - pt with chronic hypothyroidism, continue with current medication, will monitor pt to signs or symptoms of lack of adequate supplementation. Pt is to continue with current dose of medication unless directed otherwise. Check labs at regular intervals wither q 3 months or q 6 months based on previous levels of control. Ravinder will lease picker a copy of his labs Ellie 180mg daily . Diabetes Mellitus - controlled - per recent FSBS reports. I have recommended for the patient to have follow up labs prior to the next office visit. The patient has been instructed to continue with current medications as previously directed, continue with regular FSBS monitoring to assure continued control of diabetes. Pt to call for any acute concerns, complaints, or if the blood glucose readings are starting to become less controlled. Hypertension - well controlled - continue with current medications, continue with no added salt diet. Pt has been encouraged to exercise daily. The pt has been advised to call the office if there are any acute concerns about change in blood pressure readings at home. Hypothyroidism - pt with chronic hypothyroidism, continue with current medication, will monitor pt to signs or symptoms of lack of adequate supplementation. Pt is to continue with current dose of medication unless directed otherwise. Check labs at regular intervals wither q 3 months or q 6 months based on previous levels of control. Allergies - chronic - recommended pt to use allergy medication as prescribed. Pt has been counseled as to the appropriate use of the medication. Pt to call if allergy symptoms are not controlled with the medication. If using nasal spray, instructions as follows: Nasal spray- use twice daily, one spray per nostril twice daily, after 30 minutes, rinse out nose with saline spray.. Use opposite hand per nostril to spray in the nasal steroid allergy spray. . Neck pain-not improving with physical therapy-recommend xray of cervical spine and proceed with MRI if indicated. Patient verbalized understanding of plan. . Hypertension - well controlled - continue with current medications, continue with no added salt diet. Pt has been encouraged to exercise daily. The pt has been advised to call the office if there are any acute concerns about change in blood pressure readings at home. Diabetes Mellitus - controlled - per recent FSBS reports. I have recommended for the patient to have follow up labs prior to the next office visit. The patient has been instructed to continue with current medications as previously directed, continue with regular FSBS monitoring to assure continued control of diabetes. Pt to call for any acute concerns, complaints, or if the blood glucose readings are starting to become less controlled. Hypothyroidism - pt with chronic hypothyroidism, continue with current medication, will monitor pt to signs or symptoms of lack of adequate supplementation. Pt is to continue with current dose of medication unless directed otherwise. Check labs at regular intervals wither q 3 months or q 6 months based on previous levels of control. Hyperlipidemia - pt has been counseled about appropriate diet, exercise, and need for low fat food choices. I have discussed the need for the patient to take medications as prescribed. If the patient has negative side effects from the medication, they are to CALL the office and not abruptly discontinue the medication without discussion with a practitioner in the office. We will check labs in 3-6 months for follow up on the patient's chronic medical problem and to assure normal liver response to medications. . Wound Instructions - Pt was instructed to keep the wound clean, wash with antibacterial soap, use triple antibiotic ointment, call if redness, pustular drainage, or any other acute concerns. FASTING LABS ON WEDNESDAY AT [email or web address] LICENSE PAPERWORK CONCERNING FITTED SHOES FROM DR. COLÓN TO BE FAXED TO OFFICE AFTER DR. IYER SIGNS JANUVIA SAMPLES GIVEN IN OFFICE . Hypertension - well controlled - continue with current medications, continue with no added salt diet. Pt has been encouraged to exercise daily. The pt has been advised to call the office if there are any acute concerns about change in blood pressure readings at home. Hypothyroidism - pt with chronic hypothyroidism, continue with current medication, will monitor pt to signs or symptoms of lack of adequate supplementation. Pt is to continue with current dose of medication unless directed otherwise. Check labs at regular intervals wither q 3 months or q 6 months based on previous levels of control. Hyperlipidemia - pt has been counseled about appropriate diet, exercise, and need for low fat food choices. I have discussed the need for the patient to take medications as prescribed. If the patient has negative side effects from the medication, they are to CALL the office and not abruptly discontinue the medication without discussion with a practitioner in the office. We will check labs in 3-6 months for follow up on the patient's chronic medical problem and to assure normal liver response to medications. Diabetes Mellitus - controlled- I have recommended for the patient to have follow up labs prior to the next office visit. The patient has been instructed to continue with current medications as previously directed, continue with regular FSBS monitoring to assure continued control of diabetes. Pt to call for any acute concerns, complaints, or if the blood glucose readings are starting to become less controlled. Left knee pain-refer for PT if symptoms persist FASTING LABS ON WEDNESDAY AT [email or web address] PAPERWORK CONCERNING FITTED SHOES FROM DR. COLÓN TO BE FAXED TO OFFICE AFTER DR. IYER SIGNS JANUVIA SAMPLES GIVEN IN OFFICE . Hypertension - well controlled - continue with current medications, continue with no added salt diet. Pt has been encouraged to exercise daily. The pt has been advised to call the office if there are any acute concerns about change in blood pressure readings at home. Hypothyroidism - pt with chronic hypothyroidism, continue with current medication, will monitor pt to signs or symptoms of lack of adequate supplementation. Pt is to continue with current dose of medication unless directed otherwise. Check labs at regular intervals wither q 3 months or q 6 months based on previous levels of control. Hyperlipidemia - pt has been counseled about appropriate diet, exercise, and need for low fat food choices. I have discussed the need for the patient to take medications as prescribed. If the patient has negative side effects from the medication, they are to CALL the office and not abruptly discontinue the medication without discussion with a practitioner in the office. We will check labs in 3-6 months for follow up on the patient's chronic medical problem and to assure normal liver response to medications. Diabetes Mellitus - controlled- I have recommended for the patient to have follow up labs prior to the next office visit. The patient has been instructed to continue with current medications as previously directed, continue with regular FSBS monitoring to assure continued control of diabetes. Pt to call for any acute concerns, complaints, or if the blood glucose readings are starting to become less controlled. Left knee pain-refer for PT if symptoms persist Refer to [facility] for PT-DX right shoulder pain . Hypertension - well controlled - continue with current medications, continue with no added salt diet. Pt has been encouraged to exercise daily. The pt has been advised to call the office if there are any acute concerns about change in blood pressure readings at home. Diabetes Mellitus - controlled - per recent FSBS reports. I have recommended for the patient to have follow up labs prior to the next office visit. The patient has been instructed to continue with current medications as previously directed, continue with regular FSBS monitoring to assure continued control of diabetes. Pt to call for any acute concerns, complaints, or if the blood glucose readings are starting to become less controlled. Right shoulder pain-refer for PT at [facility] . Allergies - chronic - recommended pt to use allergy medication as prescribed. Pt has been counseled as to the appropriate use of the medication. Pt to call if allergy symptoms are not controlled with the medication. If using nasal spray, instructions as follows: Nasal spray- use twice daily, one spray per nostril twice daily, after 30 minutes, rinse out nose with saline spray.. Use opposite hand per nostril to spray in the nasal steroid allergy spray. . Hypertension - well controlled - continue with current medications, continue with no added salt diet. Pt has been encouraged to exercise daily. The pt has been advised to call the office if there are any acute concerns about change in blood pressure readings at home. Hypothyroidism - pt with chronic hypothyroidism, continue with current medication, will monitor pt to signs or symptoms of lack of adequate supplementation. Pt is to continue with current dose of medication unless directed otherwise. Check labs at regular intervals wither q 3 months or q 6 months based on previous levels of control. Diabetes Mellitus - controlled - per recent FSBS reports. I have recommended for the patient to have follow up labs prior to the next office visit. The patient has been instructed to continue with current medications as previously directed, continue with regular FSBS monitoring to assure continued control of diabetes. Pt to call for any acute concerns, complaints, or if the blood glucose readings are starting to become less controlled. Actinic keratosis left cheek x 3-liquid nitrogen to lesions x 3 . Hypertension - well controlled - continue with current medications, continue with no added salt diet. Pt has been encouraged to exercise daily. The pt has been advised to call the office if there are any acute concerns about change in blood pressure readings at home. Hypothyroidism - pt with chronic hypothyroidism, continue with current medication, will monitor pt to signs or symptoms of lack of adequate supplementation. Pt is to continue with current dose of medication unless directed otherwise. Check labs at regular intervals wither q 3 months or q 6 months based on previous levels of control. Diabetes Mellitus - controlled - per recent FSBS reports. I have recommended for the patient to have follow up labs prior to the next office visit. The patient has been instructed to continue with current medications as previously directed, continue with regular FSBS monitoring to assure continued control of diabetes. Pt to call for any acute concerns, complaints, or if the blood glucose readings are starting to become less controlled. Actinic keratosis left cheek x 3-liquid nitrogen to lesions x 3 . Hypertension - well controlled - continue with current medications, continue with no added salt diet. Pt has been encouraged to exercise daily. The pt has been advised to call the office if there are any acute concerns about change in blood pressure readings at home. Hypothyroidism - pt with chronic hypothyroidism, continue with current medication, will monitor pt to signs or symptoms of lack of adequate supplementation. Pt is to continue with current dose of medication unless directed otherwise. Check labs at regular intervals wither q 3 months or q 6 months based on previous levels of control. Diabetes Mellitus - controlled - per recent FSBS reports. I have recommended for the patient to have follow up labs prior to the next office visit. The patient has been instructed to continue with current medications as previously directed, continue with regular FSBS monitoring to assure continued control of diabetes. Pt to call for any acute concerns, complaints, or if the blood glucose readings are starting to become less controlled. Actinic keratosis left cheek x 3-liquid nitrogen to lesions x 3 . Diabetes Mellitus -I have recommended for the patient to have follow up labs prior to the next office visit. The patient has been instructed to continue with current medications as previously directed, continue with regular FSBS monitoring to assure continued control of diabetes. Pt to call for any acute concerns, complaints, or if the blood glucose readings are starting to become less controlled. Hypertension - well controlled - continue with current medications, continue with no added salt diet. Pt has been encouraged to exercise daily. The pt has been advised to call the office if there are any acute concerns about change in blood pressure readings at home. Allergies - chronic - recommended pt to use allergy medication as prescribed. Pt has been counseled as to the appropriate use of the medication. Pt to call if allergy symptoms are not controlled with the medication. If using nasal spray, instructions as follows: Nasal spray- use twice daily, one spray per nostril twice daily, after 30 minutes, rinse out nose with saline spray.. Use opposite hand per nostril to spray in the nasal steroid allergy spray. . Hypertension - well controlled - continue with current medications, continue with no added salt diet. Pt has been encouraged to exercise daily. The pt has been advised to call the office if there are any acute concerns about change in blood pressure readings at home. Diabetes Mellitus - I have recommended for the patient to have follow up labs prior to the next office visit. The patient has been instructed to continue with current medications as previously directed, continue with regular FSBS monitoring to assure continued control of diabetes. Pt to call for any acute concerns, complaints, or if the blood glucose readings are starting to become less controlled. Hypothyroidism - pt with chronic hypothyroidism, continue with current medication, will monitor pt to signs or symptoms of lack of adequate supplementation. Pt is to continue with current dose of medication unless directed otherwise. Check labs at regular intervals wither q 3 months or q 6 months based on previous levels of control. . Hypertension - well controlled - continue with current medications, continue with no added salt diet. Pt has been encouraged to exercise daily. The pt has been advised to call the office if there are any acute concerns about change in blood pressure readings at home. . Thoracic and lumbar spine pain -recommend xrays for further evaluation -discussed rest, ice and anti inflammatories Mild Cognitive Impairment - discussed with pt and family the diagnosis, pt is not yet in category of dementia, but is in danger of approaching that level of memory loss. Treatment modalities have been discussed and pt is considering different treatment options. We will follow up with treatment at next office visit after review of testing. Get fasting labs this week Wants a copy of labs when available-also send copy to Dr Henao and Dr Mayer . Hypertension - well controlled - continue with current medications, continue with no added salt diet. Pt has been encouraged to exercise daily. The pt has been advised to call the office if there are any acute concerns about change in blood pressure readings at home. Diabetes Mellitus - controlled - per recent FSBS reports. I have recommended for the patient to have follow up labs prior to the next office visit. The patient has been instructed to continue with current medications as previously directed, continue with regular FSBS monitoring to assure continued control of diabetes. Pt to call for any acute concerns, complaints, or if the blood glucose readings are starting to become less controlled. OA-ok to start glucosamine 1 tab twice daily Check fasting labs . Hypertension - well controlled - continue with current medications, continue with no added salt diet. Pt has been encouraged to exercise daily. The pt has been advised to call the office if there are any acute concerns about change in blood pressure readings at home. Diabetes Mellitus - controlled - per recent FSBS reports. I have recommended for the patient to have follow up labs prior to the next office visit. The patient has been instructed to continue with current medications as previously directed, continue with regular FSBS monitoring to assure continued control of diabetes. Pt to call for any acute concerns, complaints, or if the blood glucose readings are starting to become less controlled. Hypothyroidism - pt with chronic hypothyroidism, continue with current medication, will monitor pt to signs or symptoms of lack of adequate supplementation. Pt is to continue with current dose of medication unless directed otherwise. Check labs at regular intervals wither q 3 months or q 6 months based on previous levels of control. 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 Hypertension - well controlled - continue with current medications, continue with no added salt diet. Pt has been encouraged to exercise daily. The pt has been advised to call the office if there are any acute concerns about change in blood pressure readings at home. Diabetes Mellitus - controlled - per recent FSBS reports. I have recommended for the patient to have follow up labs prior to the next office visit. The patient has been instructed to continue with current medications as previously directed, continue with regular FSBS monitoring to assure continued control of diabetes. Pt to call for any acute concerns, complaints, or if the blood glucose readings are starting to become less controlled. Hypothyroidism - pt with chronic hypothyroidism, continue with current medication, will monitor pt to signs or symptoms of lack of adequate supplementation. Pt is to continue with current dose of medication unless directed otherwise. Check labs at regular intervals wither q 3 months or q 6 months based on previous levels of control. Lichen bejqyf-jfghn[facility] doxycycline per Dr Eduardo centeno-check labs-continue clobetasol . Left knee pain-continue rest, ice, and anti inflammatories as needed-call if pain does not resolve or if any worse. Edema - pt has been advised to elevate legs to prevent dependent edema, compression has been recommended to help to naturally decrease peripheral edema. Diuretic use has been discussed and pt has been instructed in appropriate use of such medication as necessary to further attempt to reduce peripheral edema. . Neck pain-not improving with physical therapy-recommend xray of cervical spine and proceed with MRI if indicated. Patient verbalized understanding of plan. Patient with significant symptoms of neck pain, numbness and tingling bilateral arms and bilateral upper extremity weakness-schedule MRI and refer to neurosurgeon of choice. ADDENDUM: Patient has severe multilevel disc disease with severe compression and neural foraminal narrowing-wants to see Dr Aleisha jain . Bronchitis - acute case of bronchitis identified. Pt has been given antibiotics, steroids as appropriate, and pt has been instructed to call if symptoms are not improved, or if symptoms acutely worsen. . Allergies - chronic - recommended pt to use allergy medication as prescribed. Pt has been counseled as to the appropriate use of the medication. Pt to call if allergy symptoms are not controlled with the medication. If using nasal spray, instructions as follows: Nasal spray- use twice daily, one spray per nostril twice daily, after 30 minutes, rinse out nose with saline spray.. Use opposite hand per nostril to spray in the nasal steroid allergy spray. Lightheadedness, dizziness - likely vagal response - pt states that he fell after having had a BM and standing up from the toilet. Denies any pain or head trauma. Discussed the need to increase fluid intake and the need to take his time while getting to his feet - pt is to notify clinic or go to the ER with any acute changes, questions, or concerns. . Hypertension - well controlled - continue with current medications, continue with no added salt diet. Pt has been encouraged to exercise daily. The pt has been advised to call the office if there are any acute concerns about change in blood pressure readings at home. Diabetes Mellitus - controlled - per recent FSBS reports. I have recommended for the patient to have follow up labs prior to the next office visit. The patient has been instructed to continue with current medications as previously directed, continue with regular FSBS monitoring to assure continued control of diabetes. Pt to call for any acute concerns, complaints, or if the blood glucose readings are starting to become less controlled. OA-neck, back, ankles-patient currently doing physical therapy -continue current treatment-temporary handicap application completed for patient-he is unable to walk 100 feet without stopping to rest. . Bronchitis - acute case of bronchitis identified. Pt has been given antibiotics, breathing treatments as appropriate, and pt has been instructed to call if symptoms are not improved, or if symptoms acutely worsen. . Hypertension - well controlled - continue with current medications, continue with no added salt diet. Pt has been encouraged to exercise daily. The pt has been advised to call the office if there are any acute concerns about change in blood pressure readings at home. Diabetes Mellitus - controlled - per recent FSBS reports. I have recommended for the patient to have follow up labs prior to the next office visit. The patient has been instructed to continue with current medications as previously directed, continue with regular FSBS monitoring to assure continued control of diabetes. Pt to call for any acute concerns, complaints, or if the blood glucose readings are starting to become less controlled. Cough - improved - finish antibiotics. . Hypertension - well controlled - continue with current medications, continue with no added salt diet. Pt has been encouraged to exercise daily. The pt has been advised to call the office if there are any acute concerns about change in blood pressure readings at home. Diabetes Mellitus - controlled - per recent FSBS reports. I have recommended for the patient to have follow up labs prior to the next office visit. The patient has been instructed to continue with current medications as previously directed, continue with regular FSBS monitoring to assure continued control of diabetes. Pt to call for any acute concerns, complaints, or if the blood glucose readings are starting to become less controlled. Hypothyroidism - pt with chronic hypothyroidism, continue with current medication, will monitor pt to signs or symptoms of lack of adequate supplementation. Pt is to continue with current dose of medication unless directed otherwise. Check labs at regular intervals wither q 3 months or q 6 months based on previous levels of control. Hyperlipidemia - pt has been counseled about appropriate diet, exercise, and need for low fat food choices. I have discussed the need for the patient to take medications as prescribed. If the patient has negative side effects from the medication, they are to CALL the office and not abruptly discontinue the medication without discussion with a practitioner in the office. We will check labs in 3-6 months for follow up on the patient's chronic medical problem and to assure normal liver response to medications. Allergies - chronic - recommended pt to use allergy medication as prescribed. Pt has been counseled as to the appropriate use of the medication. Pt to call if allergy symptoms are not controlled with the medication. If using nasal spray, instructions as follows: Nasal spray- use twice daily, one spray per nostril twice daily, after 30 minutes, rinse out nose with saline spray.. Use opposite hand per nostril to spray in the nasal steroid allergy spray. . Sinusitis - Pt has acute infection - pain in face, maxillary region, Pt informed to use decongestant, RX given to patient, sinus rinses also recommended. Call if symptoms do not show improvement. Kenalog injection today in the office. . Diabetes Mellitus - controlled - per recent FSBS reports. I have recommended for the patient to have follow up labs prior to the next office visit. The patient has been instructed to continue with current medications as previously directed, continue with regular FSBS monitoring to assure continued control of diabetes. Pt to call for any acute concerns, complaints, or if the blood glucose readings are starting to become less controlled. Patient due for new diabetic shoes due to diabetes, poor circulation and history of callus. Will fax notes from today's visit. Hypertension - well controlled - continue with current medications, continue with no added salt diet. Pt has been encouraged to exercise daily. The pt has been advised to call the office if there are any acute concerns about change in blood pressure readings at home. Hypothyroidism - pt with chronic hypothyroidism, continue with current medication, will monitor pt to signs or symptoms of lack of adequate supplementation. Pt is to continue with current dose of medication unless directed otherwise. Check labs at regular intervals wither q 3 months or q 6 months based on previous levels of control. Hyperlipidemia - pt has been counseled about appropriate diet, exercise, and need for low fat food choices. I have discussed the need for the patient to take medications as prescribed. If the patient has negative side effects from the medication, they are to CALL the office and not abruptly discontinue the medication without discussion with a practitioner in the office. We will check labs in 3-6 months for follow up on the patient's chronic medical problem and to assure normal liver response to medications. . Diabetes Mellitus - controlled - per recent FSBS reports. I have recommended for the patient to have follow up labs prior to the next office visit. The patient has been instructed to continue with current medications as previously directed, continue with regular FSBS monitoring to assure continued control of diabetes. Pt to call for any acute concerns, complaints, or if the blood glucose readings are starting to become less controlled. Hypertension - well controlled - continue with current medications, continue with no added salt diet. Pt has been encouraged to exercise daily. The pt has been advised to call the office if there are any acute concerns about change in blood pressure readings at home. Hypothyroidism - pt with chronic hypothyroidism, continue with current medication, will monitor pt to signs or symptoms of lack of adequate supplementation. Pt is to continue with current dose of medication unless directed otherwise. Check labs at regular intervals wither q 3 months or q 6 months based on previous levels of control. Hyperlipidemia - pt has been counseled about appropriate diet, exercise, and need for low fat food choices. I have discussed the need for the patient to take medications as prescribed. If the patient has negative side effects from the medication, they are to CALL the office and not abruptly discontinue the medication without discussion with a practitioner in the office. We will check labs in 3-6 months for follow up on the patient's chronic medical problem and to assure normal liver response to medications. . Diabetes Mellitus - controlled - per recent FSBS reports. I have recommended for the patient to have follow up labs prior to the next office visit. The patient has been instructed to continue with current medications as previously directed, continue with regular FSBS monitoring to assure continued control of diabetes. Pt to call for any acute concerns, complaints, or if the blood glucose readings are starting to become less controlled. Patient due for new diabetic shoes due to diabetes, poor circulation and history of callus. Will fax notes from today's visit. Hypertension - well controlled - continue with current medications, continue with no added salt diet. Pt has been encouraged to exercise daily. The pt has been advised to call the office if there are any acute concerns about change in blood pressure readings at home. Hypothyroidism - pt with chronic hypothyroidism, continue with current medication, will monitor pt to signs or symptoms of lack of adequate supplementation. Pt is to continue with current dose of medication unless directed otherwise. Check labs at regular intervals wither q 3 months or q 6 months based on previous levels of control. Hyperlipidemia - pt has been counseled about appropriate diet, exercise, and need for low fat food choices. I have discussed the need for the patient to take medications as prescribed. If the patient has negative side effects from the medication, they are to CALL the office and not abruptly discontinue the medication without discussion with a practitioner in the office. We will check labs in 3-6 months for follow up on the patient's chronic medical problem and to assure normal liver response to medications. . Hypertension - well controlled - continue with current medications, continue with no added salt diet. Pt has been encouraged to exercise daily. The pt has been advised to call the office if there are any acute concerns about change in blood pressure readings at home. Cervical stenosis-surgery scheduled with Dr Moraes in June
--- OUTSIDE RECORDS SUMMARY | 2018-04-26 11:45 | XMS REPORT | CCD ---
Author Author Shalini Mitchell MD, [facility] Address [address] [place] [address] Phone Care Team Providers Care Compliance Field Technician Name Role Phone PP Unavailable CCM Unavailable Summary Purpose Interface Exchange Insurance Providers Payer name Policy type / Coverage type Covered alliance party ID Effective Begin Date Effective End Date WPS Medicare Part B Medicare Part B [id number] Unknown [facility] Medicare Part B [id number] Unknown Family history Mother Diagnosis Age At Onset advanced age Unknown Father Diagnosis Age At Onset autoimmune disease Unknown Social History Social History Element Codes Description Effective Dates Marital status Unknown 12/04/2014 Number of children Unknown 3 12/04/2014 Employment Unknown [employer] 12/04/[address]: 9861359 Quit over 10 years ago 12/04/[address]: 940789874 Never drinks alcohol 12/04/2014 Allergies, Adverse Reactions, [...] Start Date Stop Date Status Fill Instructions Xyzal 5 mg tablet RxNorm: 929046 1 Tablet(s) PO daily 201706/23/2018 Active Xyzal 5 mg tablet RxNorm: 515785 1 Tablet(s) PO daily 201702/23/2018 Inactive metoprolol succinate ER 25 mg tablet,extended release 24 hr RxNorm: 176691 TAKE ONE TABLET BY MOUTH ONCE DAILY 01/10/2018 No Stop Date Active baclofen 10 mg tablet RxNorm: 771416 TAKE ONE TABLET BY MOUTH THREE TIMES DAILY NEEDED FOR MUSCLE SPASM 12/16/2017 No Stop Date Active Jardiance 10 mg tablet RxNorm: 7741165 1 Tablet(s) PO daily 11/201704/18/2018 Active tamsulosin 0.4 mg capsule RxNorm: 801910 TAKE ONE CAPSULE BY MOUTH ONCE DAILY 10/04/2017 No Stop Date Active Zithromax Z-Anil 250 mg tablet RxNorm: 846758 1 Tablet(s) PO UD 08/30/2017 09/03/2017 Inactive zpack Tessalon 200 mg capsule RxNorm: 885799 1 Capsule(s) PO TID as needed 08/23/2017 09/11/2017 Inactive Tessalon 200 mg capsule RxNorm: 594284 1 Capsule(s) PO TID as needed 08/23/2017 08/22/2017 Inactive prednisone 10 mg tablet RxNorm: 797097 Tablet(s) PO UD 2017 No Stop Date Active 6,5,4,3,2,1 doxycycline hyclate 100 mg capsule RxNorm: 1910154 1 Capsule(s) PO BID 08/18/2017 08/27/2017 Inactive Phenergan-Codeine 6.25 mg-10 mg/5 mL syrup RxNorm: 974653 5 to 10 ml PO Q6 as needed 08/17/2017 08/22/2017 Inactive Zithromax Z-Anil 250 mg tablet RxNorm: 260565 1 Tablet(s) PO UD 2017 08/17/2017 Inactive zpack ceftriaxone 500 mg solution for injection RxNorm: 8119287 Inj 08/03/2017 08/03/2017 Inactive cephalexin 500 mg capsule RxNorm: 782124 1 Capsule(s) PO QID 08/09/2017 Inactive Kenalog 40 mg/mL suspension for injection RxNorm: 5127575 1 Milliliter(s) Inj 08/03/2017 08/03/2017 Inactive losartan 50 mg tablet RxNorm: 756868 TAKE ONE TABLET BY MOUTH ONCE DAILY IN THE MORNING 08/02/2017 No Stop Date Active simvastatin 10 mg tablet RxNorm: 679989 TAKE ONE TABLET BY MOUTH ONCE DAILY 08/02/2017 No Stop Date Active levothyroxine 137 mcg tablet RxNorm: 546017 TAKE ONE TABLET BY MOUTH ONCE DAILY 07/26/2017 No Stop Date Active Flonase Allergy Relief 50 mcg/actuation nasal spray, suspension RxNorm: 8130450 USE TWO SPRAY(S) IN EACH NOSTRIL ONCE DAILY 06/28/2017 No Stop Date Active baclofen 10 mg tablet RxNorm: 497609 TAKE ONE TABLET BY MOUTH THREE TIMES DAILY NEEDED FOR MUSCLE SPASM 06/28/20172017 Inactive Kenalog 40 mg/mL suspension for injection RxNorm: 0637793 1 Milliliter(s) Inj 04/08/2017 04/08/2017 Inactive doxycycline hyclate 100 mg tablet RxNorm: 255157 1 Tablet(s) PO BID 04/01/2017 04/10/2017 Inactive PLEASE GIVE 90 DAY SUPPLY losartan 50 mg tablet RxNorm: 227786 TAKE ONE TABLET BY MOUTH ONCE DAILY IN THE MORNING 02/01/2017 07/30/2017 Inactive levothyroxine 137 mcg tablet RxNorm: 879395 1 Tablet(s) PO daily 01/22/2017 07/20/2017 Inactive hold until he calls for fill- using samples from office metoprolol succinate ER 25 mg tablet,extended release 24 hr RxNorm: 008491 1 Tablet(s) PO daily 01/11/2017 01/05/2018 Inactive tamsulosin 0.4 mg capsule RxNorm: 353912 TAKE ONE CAPSULE BY MOUTH ONCE DAILY 01/11/2017 10/03/2017 Inactive simvastatin 10 mg tablet RxNorm: 403161 TAKE ONE TABLET BY MOUTH ONCE DAILY 12/17/2016 06/14/2017 Inactive levothyroxine 150 mcg tablet RxNorm: 031857 1 Tablet(s) PO daily 09/24/2016 01/21/2017 Inactive doxycycline hyclate 100 mg tablet RxNorm: 511376 1 Tablet(s) PO daily 07/30/2016 01/25/2017 Inactive PLEASE GIVE 90 DAY SUPPLY doxycycline hyclate 100 mg tablet RxNorm: 304892 1 Tablet(s) PO daily 07/27/2016 07/29/2016 Inactive PLEASE GIVE 90 DAY SUPPLY quinine 324 mg capsule RxNorm: 756981 1 Capsule(s) PO HS PRN No Stop Date Active LEG CRAMPS doxycycline hyclate 100 mg tablet RxNorm: 747674 1 Tablet(s) PO daily 05/29/2016 07/26/2016 Inactive PLEASE GIVE 90 DAY SUPPLY Kenalog 40 mg/mL suspension for injection RxNorm: 3707645 Milliliter(s) Inj 05/19/2016 05/19/2016 Inactive Levaquin 500 mg tablet RxNorm: 057219 1 Tablet(s) PO daily 07/201505/25/2016 Inactive Zithromax Z-Anil 250 mg tablet RxNorm: 055011 1 Tablet(s) PO UD 05/14/2016 09/09/2016 Inactive zpack Kenalog 40 mg/mL suspension for injection RxNorm: 0801428 Milliliter(s) Inj 05/12/2016 05/12/2016 Inactive Zithromax Z-Anil 250 mg tablet RxNorm: 870970 1 Tablet(s) PO UD 05/08/2016 05/12/2016 Inactive zpack Flonase Allergy Relief 50 mcg/actuation nasal spray, suspension RxNorm: 4120030 2 [place] NASAL daily 04/21/20162016 Inactive levothyroxine 150 mcg tablet RxNorm: 444610 1 Tablet(s) PO daily 04/21/2016 09/23/2016 Inactive baclofen 10 mg tablet RxNorm: 364949 1 Tablet(s) PO TID as needed for muscle spasms 04/10/2016 11/05/2016 Inactive Flonase Allergy Relief 50 mcg/actuation nasal spray, suspension RxNorm: 5930665 2 [place] NASAL daily 01/27/20162015 Inactive losartan 50 mg tablet RxNorm: 949459 1 Tablet(s) PO QAM 201501/09/2017 Inactive magnesium oxide 400 mg tablet RxNorm: 176423 1 Tablet(s) PO daily 01/16/2016 01/09/2017 Inactive omega 1-zul-abg-fish oil 300 mg-1,000 mg capsule,delayed release RxNorm: 1 Capsule(s) PO daily 01/16/2016 01/09/2017 Inactive ask pt if this is needed- he may use OTC levothyroxine 175 mcg tablet RxNorm: 605905 1 Tablet(s) PO daily 01/16/2016 04/20/2016 Inactive metoprolol succinate ER 25 mg tablet,extended release 24 hr RxNorm: 103331 1 Tablet(s) PO daily 01/16/2016 01/09/2017 Inactive baclofen 10 mg tablet RxNorm: 126671 1 Tablet(s) PO TID as needed for muscle spasms 01/16/2016 04/09/2016 Inactive omega 6-hlz-loc-fish oil 300 mg-1,000 mg capsule,delayed release RxNorm: 1 Capsule(s) PO daily 01/16/2016 01/15/2016 Inactive ask pt if this is needed- he may use OTC simvastatin 10 mg tablet RxNorm: 631826 1 Tablet(s) PO daily 12/16/2016 Inactive tamsulosin 0.4 mg capsule RxNorm: 725460 TAKE ONE CAPSULE BY MOUTH ONCE DAILY 01/05/2016 01/10/2017 Inactive levothyroxine 150 mcg tablet RxNorm: 175576 1 Tablet(s) PO daily 12/05/2015 12/04/2015 Inactive levothyroxine 150 mcg tablet RxNorm: 605987 1 Tablet(s) PO daily 12/05/2015 01/15/2016 Inactive metoprolol succinate ER 25 mg tablet,extended release 24 hr RxNorm: 463669 1 Tablet(s) PO daily 10/22/2015 01/15/2016 Inactive losartan 50 mg tablet RxNorm: 114942 1 Tablet(s) PO QAM 201501/15/2016 Inactive levothyroxine 175 mcg tablet RxNorm: 784622 1 Tablet(s) PO daily 09/09/2015 12/04/2015 Inactive doxycycline hyclate 100 mg tablet RxNorm: 769644 1 Tablet(s) PO daily 08/27/2015 01/15/2016 Inactive PLEASE GIVE 90 DAY SUPPLY doxycycline hyclate 100 mg tablet RxNorm: 550182 1 Tablet(s) PO daily 08/27/2015 08/26/2015 Inactive chlorzoxazone 500 mg tablet RxNorm: 561074 1 Tablet(s) PO Q6 as needed muscle spasms 08/15/2015 03/11/2016 Inactive chlorzoxazone 500 mg tablet RxNorm: 373174 1 Tablet(s) PO Q6 as needed muscle spasms 08/15/2015 08/14/2015 Inactive ketoconazole 2 % shampoo RxNorm: 144452 1 Application TOP UD 08/04/2015 Inactive ketoconazole 2 % shampoo RxNorm: 812189 1 Application TOP UD 01/15/2016 Inactive clobetasol 0.05 % topical solution RxNorm: 626723 1 Application TOP daily 08/01/2015 07/31/2015 Inactive clobetasol 0.05 % topical solution RxNorm: 427430 1 Application TOP daily 08/01/2015 01/15/2016 Inactive levothyroxine 175 mcg tablet RxNorm: 875031 1 Tablet(s) PO daily 07/22/2015 09/08/2015 Inactive doxycycline hyclate 100 mg tablet RxNorm: 649111 1 Tablet(s) PO daily 07/17/2015 08/15/2015 Inactive levothyroxine 175 mcg tablet RxNorm: 535090 Tablet(s) PO every other day 07/17/2015 07/21/2015 Inactive Zithromax Z-Anil 250 mg tablet RxNorm: 625325 1 Tablet(s) PO 05/07/2016 Inactive 1 zpack finasteride 5 mg tablet RxNorm: 958374 1 Tablet(s) PO daily 12/27/2015 Inactive simvastatin 10 mg tablet RxNorm: 513339 1 Tablet(s) PO daily 12/27/2015 Inactive clopidogrel 75 mg tablet RxNorm: 919051 1 Tablet(s) PO daily 01/15/2016 Inactive metoprolol succinate ER 25 mg tablet,extended release 24 hr RxNorm: 170413 1 Tablet(s) PO daily 07/01/2015 10/21/2015 Inactive levothyroxine 150 mcg tablet RxNorm: 122017 1 Tablet(s) PO daily 07/01/2015 07/21/2015 Inactive tamsulosin 0.4 mg capsule RxNorm: 530132 1 Capsule(s) PO daily 07/01/2015 12/27/2015 Inactive losartan 50 mg tablet RxNorm: 017477 1 Tablet(s) PO QAM 201410/17/2015 Inactive levothyroxine 150 mcg tablet RxNorm: 573414 1 Tablet(s) PO daily 07/01/2015 06/30/2015 Inactive Zithromax Z-Anil 250 mg tablet RxNorm: 688576 1 Tablet(s) PO 03/201507/09/2015 Inactive 1 zpack Januvia 100 mg tablet RxNorm: 391247 1/2 Tablet(s) PO BID 201410/20/2017 Inactive Januvia 50 mg tablet RxNorm: 321495 1 Tablet(s) PO BID 201404/22/2015 Inactive chlorzoxazone 500 mg tablet RxNorm: 665734 1 Tablet(s) PO Q6 as needed muscle spasms 01/21/2015 01/20/2015 Inactive baclofen 10 mg tablet RxNorm: 374988 1 Tablet(s) PO TID as needed for muscle spasms 01/21/2015 06/30/2015 Inactive chlorzoxazone 500 mg tablet RxNorm: 089865 1 Tablet(s) PO Q6 as needed muscle spasms 01/21/2015 03/03/2015 Inactive Vitamin D3 2,000 unit tablet RxNorm: 471285 Tablet(s) PO BID No Stop Date Active [SAVINGS FOR NON-COVERED DRUGS -- BIN:[id number], PCN: [id number], Group: XXXXX , ID# [id number], Questions: . THIS IS NOT INSURANCE.] Claritin 10 mg tablet RxNorm: 641403 1 Tablet(s) PO daily No Start Date Active aspirin 81 mg tablet RxNorm: 334543 Tablet(s) PO daily No Start Date Active Centrum Silver oral RxNorm: 34226 oral No Start Date Active Calcium Citrate + D 600 mg RxNorm: 630mg PO daily No Start Date Active sodium chloride oral RxNorm: oral No Start Date Active Vitamin C 500 mg chewable tablet RxNorm: 991560 1 Tablet(s) PO No Start Date Active Cerefolin NAC (algal oil) 6 mg-600 mg-2 mg-90.314 mg tablet RxNorm: 1 Tablet (s) PO daily No Start Date Active Vitamin B12 Oral RxNorm: oral No Start Date Active Fish Oil (with DHA-EPA) capsule RxNorm: oral No Start Date 01/15/2016 Inactive clopidogrel 75 mg tablet RxNorm: 880409 1 Tablet(s) PO daily No Start Date 06/30/2015 Inactive metoprolol succinate ER 25 mg tablet,extended release 24 hr RxNorm: 161695 1 Tablet(s) PO daily No Start Date 2014 Inactive simvastatin 10 mg tablet RxNorm: 354148 1 Tablet(s) PO daily No Start Date 06/30/2015 Inactive Claritin 10 mg tablet RxNorm: 081938 1 Tablet(s) PO daily No Start Date 07/16/2015 Inactive levothyroxine 175 mcg tablet RxNorm: 327541 Tablet(s) PO every other day No Start Date 06/30/2015 Inactive Vitamin D3 2,000 unit tablet RxNorm: 635358 Tablet(s) PO daily No Start Date 12/03/2014 Inactive losartan 50 mg tablet RxNorm: 069661 1 Tablet(s) PO QAM No Start Date 06/30/2015 Inactive magnesium oxide 400 mg tablet RxNorm: 554911 1 Tablet(s) PO daily No Start Date 01/15/2016 Inactive Phenergan-Codeine 6.25 mg-10 mg/5 mL syrup RxNorm: 052840 5 to 10 ml PO Q6 No Start Date 08/16/2017 Inactive baclofen 10 mg tablet RxNorm: 198245 1 Tablet(s) PO TID as needed for muscle spasms No Start Date 01/20/2015 Inactive finasteride 5 mg tablet RxNorm: 326501 1 Tablet(s) PO daily No Start Date 06/30/2015 Inactive quinine 324 mg capsule RxNorm: 044892 1 Capsule(s) PO HS PRN No Start Date 06/14/2016 Inactive LEG CRAMPS Vitamin D3 (with calcium carbonate) oral RxNorm: 533026 oral No Start Date 01/15/2016 Inactive Zithromax Z-Anil 250 mg tablet RxNorm: 367328 1 Tablet(s) PO No Start Date 06/25/2015 Inactive 1 zpack levothyroxine 150 mcg tablet RxNorm: 384583 Tablet(s) PO every other day No Start Date 06/30/2015 Inactive Januvia 50 mg tablet RxNorm: 577382 1 Tablet(s) PO daily No Start Date 03/06/2015 Inactive fluticasone 50 mcg/actuation nasal spray,suspension RxNorm: 659891 1 [place] NASAL daily No Start Date 01/15/2016 Inactive tamsulosin ER 0.4 mg capsule,extended release 24 hr RxNorm: 338422 1 Capsule(s) PO daily No Start Date 06/30/2015 Inactive Ellie 180 mg tablet RxNorm: 171309 1 Tablet(s) PO daily No Start Date 01/15/2016 Inactive Medication Administered Medication Codes Instructions Start Date Status Kenalog 40 mg/mL suspension for injection RxNorm: 5514123 1Milliliter 08/03/2017 No longer Active ceftriaxone 500 mg solution for injection RxNorm: 8958305 08/03/2017 No longer Active Kenalog 40 mg/mL suspension for injection RxNorm: 3817887 1Milliliter 04/08/2017 No longer Active Kenalog 40 mg/mL suspension for injection RxNorm: 0318817 Milliliter 05/19/2016 No longer Active Kenalog 40 mg/mL suspension for injection RxNorm: 9023435 Milliliter 05/12/2016 No longer Active Immunizations Vaccine [...] Lipid Ord30 C/HDL 2.8 Ratio 01/11/2018 %Hba1C Jpl046 % HbA1c 42718-3 6.9 % 01/11/2018 %Hba1C Qzg621 Gluc Ave 151 mg/dL 01/11/2018 Cbc With Differential Ord2 WBC 6.90 K/ul 01/11/2018 Cbc With Differential Ord2 RBC 4.87 M/ul 01/11/2018 Cbc With Differential Ord2 HGB 14.6 g/dl 01/11/2018 Cbc With Differential Ord2 HCT 45.1 % 01/11/2018 Cbc With Differential Ord2 Neut% 62.9 % 01/11/2018 Cbc With Differential Ord2 MCV 92.6 fl 01/11/2018 Cbc With Differential Ord2 Lymph% 17.4 % 01/11/2018 Cbc With Differential Ord2 [place]% 13.3 % 01/11/2018 Cbc With Differential Ord2 MCH 30.0 pg 01/11/2018 Cbc With Differential Ord2 Eos% 5.4 % 01/11/2018 Cbc With Differential Ord2 MCHC 32.4 pg 01/11/2018 Cbc With Differential Ord2 Baso% 1.0 % 01/11/2018 Cbc With Differential Ord2 PLT 322 K/ul 01/11/2018 Cbc With Differential Ord2 Neut ABS# 4.34 K/ul 01/11/2018 Cbc With Differential Ord2 RDW 13.8 % 01/11/2018 Cbc With Differential Ord2 Lymph ABS# 1.20 K/ul 01/11/2018 Cbc With Differential Ord2 [place] ABS# 0.9 K/ul 01/11/2018 Cbc With Differential Ord2 Eos ABS# 0.4 K/ul 01/11/2018 Cbc With Differential Ord2 Baso ABS# 0.1 K/ul 01/11/2018 Tsh Ord6 TSH (3rd IS) 1.73 uIU/mL 01/11/2018 Comp Metabolic Wqe141 NA 140 mEq/L 01/11/2018 Comp Metabolic Eup323 K 4.1 mEq/L 01/11/2018 Comp Metabolic Vtf557 CL 103 mEq/L 01/11/2018 Comp Metabolic Tnz480 CO2 28.0 mEq/L 01/11/2018 Comp Metabolic Dtg570 ANION GAP 13 01/11/2018 Comp Metabolic Frz144 GLUCOSE 151 mg/dL 01/11/2018 Comp Metabolic Urg650 Creat 0.9 mg/dL 01/11/2018 Comp Metabolic Kbf421 eGFR 87 ml/min/1.73m2 01/11/2018 Comp Metabolic Ywn931 BUN 18 mg/dL 01/11/2018 Comp Metabolic Kbq751 B/C Ratio 20.2 Ratio 01/11/2018 Comp Metabolic Ivm124 CALCIUM 9.3 mg/dL 01/11/2018 Comp Metabolic Xnn262 ALK PHOS 70 U/L 01/11/2018 Comp Metabolic Unl387 AST(SGOT) 18 U/L 01/11/2018 Comp Metabolic Sma936 ALT(SGPT) 17 U/L 01/11/2018 Comp Metabolic Doq796 BILI T 0.7 mg/dL 01/11/2018 Comp Metabolic Ebz188 ALBUMIN 4.1 g/dL 01/11/2018 Comp Metabolic Lkj006 TPRO 6.4 g/dL 01/11/2018 Comp Metabolic Ixj382 GLOB 2.3 g/dL 01/11/2018 Comp Metabolic Bxx323 A/G Ratio 1.7 Ratio 01/11/2018 Comp Metabolic Xmr279 Osmo 284 mOsmo 01/11/2018 Free T4 Ocj638 FREE T4 0.80 ng/dL 10/08/2017 Lipid Ord30 CHOL 151 mg/dL 10/08/2017 Lipid Ord30 HDL 58.0 mg/dl 10/08/2017 Lipid Ord30 TRIG 126 mg/dL 10/08/2017 Lipid Ord30 LDL 68 mg/dL 10/08/2017 Lipid Ord30 C/HDL 2.6 Ratio 10/08/2017 Microalbumin Jvu809 MicroAlb <0.7 mg/dL 10/08/2017 %Hba1C Mge419 % HbA1c 62834-8 6.9 % 10/08/2017 %Hba1C Jhh837 Gluc Ave 151 mg/dL 10/08/2017 Tsh Ord6 [...] 30.4 pg 10/08/2017 Cbc With Differential Ord2 [place]% 13.7 % 10/08/2017 Cbc With Differential Ord2 Eos% 2.3 % 10/08/2017 Cbc With Differential Ord2 MCHC 32.9 pg 10/08/2017 Cbc With Differential Ord2 PLT 298 K/ul 10/08/2017 Cbc With Differential Ord2 Baso% 0.7 % 10/08/2017 Cbc With Differential Ord2 RDW 15.1 % 10/08/2017 Cbc With Differential Ord2 Neut ABS# 4.01 K/ul 10/08/2017 Cbc With Differential Ord2 Lymph ABS# 1.05 K/ul 10/08/2017 Cbc With Differential Ord2 [place] ABS# 0.8 K/ul 10/08/2017 Cbc With Differential Ord2 Eos ABS# 0.1 K/ul 10/08/2017 Cbc With Differential Ord2 Baso ABS# 0.0 K/ul 10/08/2017 Comp Metabolic Szw632 NA 141 mEq/L 10/08/2017 Comp Metabolic Egu206 K 4.5 mEq/L 10/08/2017 Comp Metabolic Xwu380 CL 103 mEq/L 10/08/2017 Comp Metabolic Iit622 CO2 30.0 mEq/L 10/08/2017 Comp Metabolic Fre563 ANION GAP 13 10/08/2017 Comp Metabolic Czo664 GLUCOSE 150 mg/dL 10/08/2017 Comp Metabolic Agg355 Creat 0.9 mg/dL 10/08/2017 Comp Metabolic Ybo553 eGFR 85 ml/min/1.73m2 10/08/2017 Comp Metabolic Qkp613 BUN 18 mg/dL 10/08/2017 Comp Metabolic Xdq530 B/C Ratio 19.8 Ratio 10/08/2017 Comp Metabolic Hyf705 CALCIUM 9.4 mg/dL 10/08/2017 Comp Metabolic Fom771 ALK PHOS 60 U/L 10/08/2017 Comp Metabolic Rhv416 AST(SGOT) 17 U/L 10/08/2017 Comp Metabolic Odp328 ALT(SGPT) 17 U/L 10/08/2017 Comp Metabolic Ddh066 BILI T 1.0 mg/dL 10/08/2017 Comp Metabolic Xrv503 ALBUMIN 4.0 g/dL 10/08/2017 Comp Metabolic Fnd860 TPRO 6.3 g/dL 10/08/2017 Comp Metabolic Bud369 GLOB 2.3 g/dL 10/08/2017 Comp Metabolic Gzr699 A/G Ratio 1.8 Ratio 10/08/2017 Comp Metabolic Utr273 Osmo 286 mOsmo 10/08/2017 %Hba1C Byy298 % HbA1c 15837-9 6.5 % 04/28/2017 %Hba1C Naw688 Gluc Ave 140 mg/dL 04/28/2017 Lipid Ord30 [...] 14.3 g/dl 04/28/2017 Cbc With Differential Ord2 Neut% 67.7 % 04/28/2017 Cbc With Differential Ord2 HCT 43.4 % 04/28/2017 Cbc With Differential Ord2 MCV 89.7 fl 04/28/2017 Cbc With Differential Ord2 Lymph% 14.5 % 04/28/2017 Cbc With Differential Ord2 MCH 29.5 pg 04/28/2017 Cbc With Differential Ord2 [place]% 14.0 % 04/28/2017 Cbc With Differential Ord2 Eos% 3.3 % 04/28/2017 Cbc With Differential Ord2 MCHC 32.9 pg 04/28/2017 Cbc With Differential Ord2 Baso% 0.5 % 04/28/2017 Cbc With Differential Ord2 PLT 296 K/ul 04/28/2017 Cbc With Differential Ord2 RDW 15.2 % 04/28/2017 Cbc With Differential Ord2 Neut ABS# 4.98 K/ul 04/28/2017 Cbc With Differential Ord2 Lymph ABS# 1.07 K/ul 04/28/2017 Cbc With Differential Ord2 [place] ABS# 1.0 K/ul 04/28/2017 Cbc With Differential Ord2 Eos ABS# 0.2 K/ul 04/28/2017 Cbc With Differential Ord2 Baso ABS# 0.0 K/ul 04/28/2017 Free T4 Vuz529 FREE T4 1.07 ng/dL 04/28/2017 Comp Metabolic Cyk101 NA 140 mEq/L 04/28/2017 Comp Metabolic Sui373 K 4.6 mEq/L 04/28/2017 Comp Metabolic Spx053 CL 104 mEq/L 04/28/2017 Comp Metabolic Zsn937 CO2 27.0 mEq/L 04/28/2017 Comp Metabolic Kwa398 ANION GAP 14 04/28/2017 Comp Metabolic Ptx026 GLUCOSE 141 mg/dL 04/28/2017 Comp Metabolic Ycj257 Creat 1.0 mg/dL 04/28/2017 Comp Metabolic Rkl067 eGFR 79 ml/min/1.73m2 04/28/2017 Comp Metabolic Syc465 BUN 26 mg/dL 04/28/2017 Comp Metabolic Xjm317 B/C Ratio 26.8 Ratio 04/28/2017 Comp Metabolic Efd571 CALCIUM 9.4 mg/dL 04/28/2017 Comp Metabolic Gvn102 ALK PHOS 66 U/L 04/28/2017 Comp Metabolic Etf437 AST(SGOT) 21 U/L 04/28/2017 Comp Metabolic Cky125 ALT(SGPT) 20 U/L 04/28/2017 Comp Metabolic Ocb335 BILI T 1.3 mg/dL 04/28/2017 Comp Metabolic Vql009 ALBUMIN 4.1 g/dL 04/28/2017 Comp Metabolic Knt253 TPRO 6.3 g/dL 04/28/2017 Comp Metabolic Qbf899 GLOB 2.2 g/dL 04/28/2017 Comp Metabolic Mer058 A/G Ratio 1.9 Ratio 04/28/2017 Comp Metabolic Idg449 Osmo 287 mOsmo 04/28/2017 %Hba1C Ffs698 % HbA1c 82065-1 6.6 % 01/22/2017 %Hba1C Sid323 Gluc Ave 143 mg/dL 01/22/2017 Tsh Ord6 hTSH II 0.26 uIU/mL 01/22/2017 Cbc With Differential Ord2 WBC 6.68 K/ul 01/22/2017 Cbc With Differential Ord2 RBC 4.37 M/ul 01/22/2017 Cbc With Differential Ord2 HGB 13.2 g/dl 01/22/2017 Cbc With Differential Ord2 Neut% 67.6 % 01/22/2017 Cbc With Differential Ord2 HCT 40.1 % 01/22/2017 Cbc With Differential Ord2 MCV 91.8 fl 01/22/2017 Cbc With Differential Ord2 Lymph% 15.1 % 01/22/2017 Cbc With Differential Ord2 MCH 30.2 pg 01/22/2017 Cbc With Differential Ord2 [place]% 14.1 % 01/22/2017 Cbc With Differential Ord2 MCHC 32.9 pg 01/22/2017 Cbc With Differential Ord2 Eos% 2.5 % 01/22/2017 Cbc With Differential Ord2 PLT 261 K/ul 01/22/2017 Cbc With Differential Ord2 Baso% 0.7 % 01/22/2017 Cbc With Differential Ord2 RDW 14.1 % 01/22/2017 Cbc With Differential Ord2 Neut ABS# 4.51 K/ul 01/22/2017 Cbc With Differential Ord2 Lymph ABS# 1.01 K/ul 01/22/2017 Cbc With Differential Ord2 [place] ABS# 0.9 K/ul 01/22/2017 Cbc With Differential Ord2 Eos ABS# 0.2 K/ul 01/22/2017 Cbc With Differential Ord2 Baso ABS# 0.1 K/ul 01/22/2017 Comp Metabolic Xlt466 NA 140 mEq/L 01/22/2017 Comp Metabolic Qxu057 K 4.3 mEq/L 01/22/2017 Comp Metabolic Njq635 CL 104 mEq/L 01/22/2017 Comp Metabolic Llm210 CO2 29.0 mEq/L 01/22/2017 Comp Metabolic Tza385 ANION GAP 11 01/22/2017 Comp Metabolic Eqf775 GLUCOSE 146 mg/dL 01/22/2017 Comp Metabolic Xzp672 Creat 0.8 mg/dL 01/22/2017 Comp Metabolic Hei528 eGFR 100 ml/min/1.73m2 01/22/2017 Comp Metabolic Gdg142 BUN 19 mg/dL 01/22/2017 Comp Metabolic Suf450 B/C Ratio 24.1 Ratio 01/22/2017 Comp Metabolic Axx896 CALCIUM 9.2 mg/dL 01/22/2017 Comp Metabolic Shc866 ALK PHOS 60 U/L 01/22/2017 Comp Metabolic Euq936 AST(SGOT) 18 U/L 01/22/2017 Comp Metabolic Cli881 ALT(SGPT) 17 U/L 01/22/2017 Comp Metabolic Euy740 BILI T 0.6 mg/dL 01/22/2017 Comp Metabolic Eye121 ALBUMIN 3.7 g/dL 01/22/2017 Comp Metabolic Mch247 TPRO 5.8 g/dL 01/22/2017 Comp Metabolic Hxh045 GLOB 2.1 g/dL 01/22/2017 Comp Metabolic Bwm724 A/G Ratio 1.7 Ratio 01/22/2017 Comp Metabolic Jkb836 Osmo 284 mOsmo 01/22/2017 Lipid Ord30 CHOL 126 mg/dL 01/22/2017 Lipid Ord30 HDL 43.0 mg/dl 01/22/2017 Lipid Ord30 TRIG 111 mg/dL 01/22/2017 Lipid Ord30 LDL 61 mg/dL 01/22/2017 Lipid Ord30 C/HDL 2.9 Ratio 01/22/2017 Free T4 Rqd875 FREE T4 0.96 ng/dL 01/22/2017 Comp Metabolic Lhw560 NA 141 mEq/L 10/23/2016 Comp Metabolic Wyb024 K 4.3 mEq/L 10/23/2016 Comp Metabolic Msv568 CL 104 mEq/L 10/23/2016 Comp Metabolic Jfw017 CO2 29.0 mEq/L 10/23/2016 Comp Metabolic Pxd942 ANION GAP 12 10/23/2016 Comp Metabolic Vgh496 GLUCOSE 156 mg/dL 10/23/2016 Comp Metabolic Qtp054 Creat 0.9 mg/dL 10/23/2016 Comp Metabolic Nyn293 eGFR 85 ml/min/1.73m2 10/23/2016 Comp Metabolic Zco946 BUN 19 mg/dL 10/23/2016 Comp Metabolic Mah156 B/C Ratio 20.9 Ratio 10/23/2016 Comp Metabolic Dvt153 CALCIUM 9.2 mg/dL 10/23/2016 Comp Metabolic Yko624 ALK PHOS 72 U/L 10/23/2016 Comp Metabolic Uuy366 AST(SGOT) 21 U/L 10/23/2016 Comp Metabolic Pky126 ALT(SGPT) 19 U/L 10/23/2016 Comp Metabolic Itr749 BILI T 0.8 mg/dL 10/23/2016 Comp Metabolic Cfc282 ALBUMIN 3.8 g/dL 10/23/2016 Comp Metabolic Dga699 TPRO 6.2 g/dL 10/23/2016 Comp Metabolic Dkd046 GLOB 2.4 g/dL 10/23/2016 Comp Metabolic Hpa971 A/G Ratio 1.6 Ratio 10/23/2016 Comp Metabolic Twm517 Osmo 287 mOsmo 10/23/2016 Cbc With Differential Ord2 WBC 5.81 K/ul 10/23/2016 Cbc With Differential Ord2 RBC 4.65 M/ul 10/23/2016 Cbc With Differential Ord2 HGB 14.3 g/dl 10/23/2016 Cbc With Differential Ord2 HCT 43.2 % 10/23/2016 Cbc With Differential Ord2 Neut% 69.7 % 10/23/2016 Cbc With Differential Ord2 Lymph% 13.6 % 10/23/2016 Cbc With Differential Ord2 MCV 92.9 fl 10/23/2016 Cbc With Differential Ord2 [place]% 12.7 % 10/23/2016 Cbc With Differential Ord2 MCH 30.8 pg 10/23/2016 Cbc With Differential Ord2 MCHC 33.1 pg 10/23/2016 Cbc With Differential Ord2 Eos% 3.3 % 10/23/2016 Cbc With Differential Ord2 PLT 304 K/ul 10/23/2016 Cbc With Differential Ord2 Baso% 0.7 % 10/23/2016 Cbc With Differential Ord2 RDW 13.5 % 10/23/2016 Cbc With Differential Ord2 Neut ABS# 4.05 K/ul 10/23/2016 Cbc With Differential Ord2 Lymph ABS# 0.79 K/ul 10/23/2016 Cbc With Differential Ord2 [place] ABS# 0.7 K/ul 10/23/2016 Cbc With Differential Ord2 Eos ABS# 0.2 K/ul 10/23/2016 Cbc With Differential Ord2 Baso ABS# 0.0 K/ul 10/23/2016 Lipid Ord30 CHOL 134 mg/dL 10/23/2016 Lipid Ord30 HDL 42.0 mg/dl 10/23/2016 Lipid Ord30 TRIG 101 mg/dL 10/23/2016 Lipid Ord30 LDL 72 mg/dL 10/23/2016 Lipid Ord30 C/HDL 3.2 Ratio 10/23/2016 Free T4 [id number] FREE T4 0.99 ng/dL 10/23/2016 Tsh Ord6 hTSH II 0.70 uIU/mL 10/23/2016 %Hba1C Pww340 % HbA1c 04932-4 7.0 % 10/23/2016 %Hba1C Sbz718 Gluc Ave 154 mg/dL 10/23/2016 Lipid Ord30 CHOL 136 mg/dL 07/24/2016 Lipid Ord30 HDL 52.0 mg/dl 07/24/2016 Lipid Ord30 TRIG 83 mg/dL 07/24/2016 Lipid Ord30 LDL 67 mg/dL 07/24/2016 Lipid Ord30 C/HDL 2.6 Ratio 07/24/2016 %Hba1C Lkc662 % HbA1c 90093-1 7.1 % 07/24/2016 %Hba1C Jjs728 Gluc Ave 157 mg/dL 07/24/2016 Tsh Ord6 [...] 93.0 fl 07/24/2016 Cbc With Differential Ord2 [place]% 13.8 % 07/24/2016 Cbc With Differential Ord2 [...] 1.56 K/ul 07/24/2016 Cbc With Differential Ord2 [place] ABS# 1.0 K/ul 07/24/2016 Cbc With Differential Ord2 Eos ABS# 0.2 K/ul 07/24/2016 Cbc With Differential Ord2 Baso ABS# 0.0 K/ul 07/24/2016 Comp Metabolic Bzg273 NA 139 mEq/L 07/24/2016 Comp Metabolic Upi963 K 4.5 mEq/L 07/24/2016 Comp Metabolic Wjc666 CL 103 mEq/L 07/24/2016 Comp Metabolic Cno146 CO2 30.0 mEq/L 07/24/2016 Comp Metabolic Mns248 ANION GAP 11 07/24/2016 Comp Metabolic Dml295 GLUCOSE 161 mg/dL 07/24/2016 Comp Metabolic Klv646 Creat 1.0 mg/dL 07/24/2016 Comp Metabolic Zkh802 eGFR 80 ml/min/1.73m2 07/24/2016 Comp Metabolic Jpx222 BUN 23 mg/dL 07/24/2016 Comp Metabolic Fsq307 B/C Ratio 24.0 Ratio 07/24/2016 Comp Metabolic Tvk051 CALCIUM 9.4 mg/dL 07/24/2016 Comp Metabolic Emp732 ALK PHOS 66 U/L 07/24/2016 Comp Metabolic Szf708 AST(SGOT) 18 U/L 07/24/2016 Comp Metabolic Yxj076 ALT(SGPT) 22 U/L 07/24/2016 Comp Metabolic Sqg542 BILI T 1.1 mg/dL 07/24/2016 Comp Metabolic Quj549 ALBUMIN 4.0 g/dL 07/24/2016 Comp Metabolic Xuc027 TPRO 6.4 g/dL 07/24/2016 Comp Metabolic Esv354 GLOB 2.4 g/dL 07/24/2016 Comp Metabolic Ghk545 A/G Ratio 1.6 Ratio 07/24/2016 Comp Metabolic Ukh311 Osmo 285 mOsmo 07/24/2016 %Hba1C Rrj331 % HbA1c 14967-6 7.0 % 03/11/2016 %Hba1C Xgq931 Gluc Ave 154 mg/dL 03/11/2016 Free T4 Dry694 FREE T4 0.92 ng/dL 03/11/2016 Tsh Ord6 hTSH II 0.92 uIU/mL 03/11/2016 %Hba1C Yrt928 % HbA1c 19965-8 7.1 % 11/27/2015 %Hba1C Too347 Gluc Ave 157 mg/dL 11/27/2015 Free T4 Gqk247 FREE T4 0.95 ng/dL 11/27/2015 Cbc With Differential Ord2 WBC 6.21 K/ul 11/27/2015 Cbc With Differential Ord2 RBC 4.79 M/ul 11/27/2015 Cbc With Differential Ord2 HGB 13.8 g/dl 11/27/2015 Cbc With Differential Ord2 Neut% 61.3 % 11/27/2015 Cbc With Differential Ord2 HCT 42.1 % 11/27/2015 Cbc With Differential Ord2 MCV 87.9 fl 11/27/2015 Cbc With Differential Ord2 Lymph% 20.3 % 11/27/2015 Cbc With Differential Ord2 [place]% 13.5 % 11/27/2015 Cbc With Differential Ord2 MCH 28.8 pg 11/27/2015 Cbc With Differential Ord2 Eos% 3.9 % 11/27/2015 Cbc With Differential Ord2 MCHC 32.8 pg 11/27/2015 Cbc With Differential Ord2 Baso% 1.0 % 11/27/2015 Cbc With Differential Ord2 PLT 304 K/ul 11/27/2015 Cbc With Differential Ord2 Neut ABS# 3.81 K/ul 11/27/2015 Cbc With Differential Ord2 RDW 14.7 % 11/27/2015 Cbc With Differential Ord2 Lymph ABS# 1.26 K/ul 11/27/2015 Cbc With Differential Ord2 [place] ABS# 0.8 K/ul 11/27/2015 Cbc With Differential Ord2 Eos ABS# 0.2 K/ul 11/27/2015 Cbc With Differential Ord2 Baso ABS# 0.1 K/ul 11/27/2015 Cbc With Differential Ord2 New Analyzer Notice Please note new ref ranges starting 07-31-2015 due to implemntation of new five part differential hematolgy analyzer. 11/27/2015 Tsh Ord6 hTSH II 0.35 uIU/mL 11/27/2015 Comp Metabolic Jkb529 NA 139 mEq/L 11/27/2015 Comp Metabolic Zav776 K 4.4 mEq/L 11/27/2015 Comp Metabolic Hdd588 CL 105 mEq/L 11/27/2015 Comp Metabolic Eds167 CO2 28.0 mEq/L 11/27/2015 Comp Metabolic Gmn395 ANION GAP 10 11/27/2015 Comp Metabolic Oxc281 GLUCOSE 139 mg/dL 11/27/2015 Comp Metabolic Ftx885 Creat 0.9 mg/dL 11/27/2015 Comp Metabolic Ebs769 eGFR 89 ml/min/1.73m2 11/27/2015 Comp Metabolic Fud293 BUN 15 mg/dL 11/27/2015 Comp Metabolic Cpm573 B/C Ratio 17.2 Ratio 11/27/2015 Comp Metabolic Iau276 CALCIUM 8.8 mg/dL 11/27/2015 Comp Metabolic Zlp878 ALK PHOS 78 U/L 11/27/2015 Comp Metabolic Bxt484 AST(SGOT) 18 U/L 11/27/2015 Comp Metabolic Ezs934 ALT(SGPT) 16 U/L 11/27/2015 Comp Metabolic Jtv982 BILI T 0.9 mg/dL 11/27/2015 Comp Metabolic Twp465 ALBUMIN 3.7 g/dL 11/27/2015 Comp Metabolic Nwn014 TPRO 6.2 g/dL 11/27/2015 Comp Metabolic Ngy233 GLOB 2.5 g/dL 11/27/2015 Comp Metabolic Mwe969 A/G Ratio 1.5 Ratio 11/27/2015 Comp Metabolic Qki195 Osmo 281 mOsmo 11/27/2015 Lipid Ord30 CHOL 123 mg/dL 11/27/2015 Lipid Ord30 HDL 41.0 mg/dl 11/27/2015 Lipid Ord30 TRIG 130 mg/dL 11/27/2015 Lipid Ord30 LDL 56 mg/dL 11/27/2015 Lipid Ord30 C/HDL 3.0 Ratio 11/27/2015 Free T4 Nmb257 FREE T4 0.87 ng/dL 08/28/2015 Lipid Ord30 [...] 13.0 g/dl 08/28/2015 Cbc With Differential Ord2 Neut% 58.4 % 08/28/2015 Cbc With Differential Ord2 HCT 40.0 % 08/28/2015 Cbc With Differential Ord2 MCV 85.8 fl 08/28/2015 Cbc With Differential Ord2 Lymph% 23.8 % 08/28/2015 Cbc With Differential Ord2 [place]% 12.7 % 08/28/2015 Cbc With Differential Ord2 MCH 27.9 pg 08/28/2015 Cbc With Differential Ord2 Eos% 4.0 % 08/28/2015 Cbc With Differential Ord2 MCHC 32.5 pg 08/28/2015 Cbc With Differential Ord2 Baso% 1.1 % 08/28/2015 Cbc With Differential Ord2 PLT 323 K/ul 08/28/2015 Cbc With Differential Ord2 RDW 18.3 % 08/28/2015 Cbc With Differential Ord2 Neut ABS# 3.76 K/ul 08/28/2015 Cbc With Differential Ord2 Lymph ABS# 1.53 K/ul 08/28/2015 Cbc With Differential Ord2 [place] ABS# 0.8 K/ul 08/28/2015 Cbc With Differential Ord2 Eos ABS# 0.3 K/ul 08/28/2015 Cbc With Differential Ord2 Baso ABS# 0.1 K/ul 08/28/2015 Cbc With Differential Ord2 New Analyzer Notice Please note new ref ranges starting 07-31-2015 due to implemntation of new five part differential hematolgy analyzer. 08/28/2015 %Hba1C Rfg937 % HbA1c 41271-3 6.9 % 08/28/2015 %Hba1C Caf582 Gluc Ave 151 mg/dL 08/28/2015 Comp Metabolic Iub213 NA 139 mEq/L 08/28/2015 Comp Metabolic Ywd938 K 4.5 mEq/L 08/28/2015 Comp Metabolic Pix620 CL 104 mEq/L 08/28/2015 Comp Metabolic Bxo207 CO2 28.0 mEq/L 08/28/2015 Comp Metabolic Mgq801 ANION GAP 12 08/28/2015 Comp Metabolic Gam918 GLUCOSE 146 mg/dL 08/28/2015 Comp Metabolic Hjb606 Creat 1.0 mg/dL 08/28/2015 Comp Metabolic Inp921 eGFR 77 ml/min/1.73m2 08/28/2015 Comp Metabolic Dtx350 BUN 21 mg/dL 08/28/2015 Comp Metabolic Szy718 B/C Ratio 21.2 Ratio 08/28/2015 Comp Metabolic Dmr454 CALCIUM 9.3 mg/dL 08/28/2015 Comp Metabolic Qtm640 ALK PHOS 70 U/L 08/28/2015 Comp Metabolic Sfz068 AST(SGOT) 18 U/L 08/28/2015 Comp Metabolic Boh217 ALT(SGPT) 16 U/L 08/28/2015 Comp Metabolic Hya321 BILI T 0.6 mg/dL 08/28/2015 Comp Metabolic Ijc629 ALBUMIN 4.0 g/dL 08/28/2015 Comp Metabolic Lsx067 TPRO 6.4 g/dL 08/28/2015 Comp Metabolic Yuo437 GLOB 2.4 g/dL 08/28/2015 Comp Metabolic Lhj686 A/G Ratio 1.7 Ratio 08/28/2015 Comp Metabolic Ytg552 Osmo 283 mOsmo 08/28/2015 Lipid Ord30 CHOL 137 mg/dL 03/06/2015 Lipid Ord30 HDL 48.0 mg/dl 03/06/2015 Lipid Ord30 TRIG 121 mg/dL 03/06/2015 Lipid Ord30 LDL 65 mg/dL 03/06/2015 Lipid Ord30 C/HDL 2.9 Ratio 03/06/2015 %Hba1C Grj959 % HbA1c 00415-2 6.7 % 03/06/2015 %Hba1C Uou493 Gluc Ave 146 mg/dL 03/06/2015 Tsh Ord6 [...] Ord2 RDW 14.5 % 03/06/2015 Comp Metabolic Cfh708 NA 137 mEq/L 03/06/2015 Comp Metabolic Znc809 K 4.2 mEq/L 03/06/2015 Comp Metabolic Iuo583 CL 103 mEq/L 03/06/2015 Comp Metabolic Vez428 CO2 30.0 mEq/L 03/06/2015 Comp Metabolic Jxw365 ANION GAP 8 03/06/2015 Comp Metabolic Qos657 GLUCOSE 156 mg/dL 03/06/2015 Comp Metabolic Cdw996 Creat 1.0 mg/dL 03/06/2015 Comp Metabolic Mgx407 eGFR 75 ml/min/1.73m2 03/06/2015 Comp Metabolic Jba482 BUN 17 mg/dL 03/06/2015 Comp Metabolic Soh268 B/C Ratio 16.7 Ratio 03/06/2015 Comp Metabolic Jkm805 CALCIUM 9.2 mg/dL 03/06/2015 Comp Metabolic Vqa050 ALK PHOS 75 U/L 03/06/2015 Comp Metabolic Lrr336 AST(SGOT) 17 U/L 03/06/2015 Comp Metabolic Jse712 ALT(SGPT) 16 U/L 03/06/2015 Comp Metabolic Dvu452 BILI T 0.8 mg/dL 03/06/2015 Comp Metabolic Med000 ALBUMIN 4.0 g/dL 03/06/2015 Comp Metabolic Pwq214 TPRO 6.3 g/dL 03/06/2015 Comp Metabolic Ine014 GLOB 2.3 g/dL 03/06/2015 Comp Metabolic Aaq887 A/G Ratio 1.7 Ratio 03/06/2015 Comp Metabolic Bir086 Osmo 279 mOsmo 03/06/2015 Free T4 Ubt465 FREE T4 1.02 ng/dL 03/06/2015 Review of [...] nourished 08/18/2017 None Full Exam - General 1994 Ears/Nose/Throat oral cavity/pharynx/larynx Overall: oral mucosa clear 08/18/2017 None Full Exam - General 1994 Ears/Nose/Throat oral cavity/pharynx/larynx Oropharynx: erythema 08/18/2017 None [...] lips 07/23/2016 None Full Exam - General 1994 Ears/Nose/Throat lips/teeth/gingiva Overall: normal dentition 07/23/2016 None Full Exam - General 1995 Ears/Nose/Throat lips/teeth/gingiva Overall: benign gingiva 07/23/2016 None Full Exam - General 1994 Ears/Nose/Throat lips/teeth/gingiva Overall: no masses 07/23/2016 None [...] nontender 10/28/2015 None Full Exam - General 1994 Ears/Nose/Throat lips/teeth/gingiva Overall: benign lips 10/28/2015 None [...] Procedure Codes Date THER/PROPH/DIAG INJ SC/IM CPT-4: 28858 08/03/2017 TRIAMCINOLONE ACET INJ NOS CPT-4: J3301 08/03/2017 ROCEPHIN, PER 250 MG CPT-4: J0696 08/03/2017 TRIAMCINOLONE ACET INJ NOS CPT-4: J3301 04/08/2017 ADMIN INFLUENZA VIRUS VAC CPT-4: G0008 04/01/2017 FLU VACC PRSV FREE INC ANTIG CPT-4: 77881 04/01/2017 TRIAMCINOLONE ACET INJ NOS CPT-4: J3301 05/19/2016 THER/PROPH/DIAG INJ SC/IM CPT-4: 82059 05/12/2016 TRIAMCINOLONE ACET INJ NOS CPT-4: J3301 05/12/2016 ADMIN PNEUMOCOCCAL VACCINE SNOMED CT: 93858870 CPT-4: G0009 05/05/2016 Pneumococcal Polysaccharide Vaccine, 23-Valent, Ad Formatting Model/CDA Sections, Assigned to/Otilia Ramires CPT-4: 85320Cvflipq 05/05/2016 ADMIN INFLUENZA VIRUS VAC CPT-4: G0008 04/24/2016 FLU VACC 4 YA 3 YRS PLUS IM SNOMED CT: 02094020 CPT-4: 53938 04/24/2016 Vital Signs Date Vital 03/03/2018 Blood Pressure 1: 122/64 Code : 8480-6 BMI: 24.4 Code : 59788-9 Heart Rate 1 : 73 bpm Height: 6' SpO2: 99% Weight: 180 lbs 01/10/2018 Blood Pressure 1: 140/72 Code : 8480-6 BMI: 24.5 Code : 38375-0 Heart Rate 1 : 95 bpm Height: 6' SpO2: 94% Weight: 181 lbs 12/16/2017 Blood Pressure 1: 132/64 Code : 8480-6 BMI: 24.5 Code : 84900-8 Heart Rate 1 : 77 bpm Height: 6' SpO2: 98% Weight: 181 lbs 10/13/2017 Blood Pressure 1: 148/66 Code : 8480-6 BMI: 26.9 Code : 12846-4 Heart Rate 1 : 67 bpm Height: 6' SpO2: 98% Weight: 198 lbs 10/04/2017 Blood Pressure 1: 13664 Code : 8480-6 BMI: 27.0 Code : 61531-6 Heart Rate 1 : 76 bpm Height: 6' SpO2: 100% Weight: 199 lbs 09/01/2017 Blood Pressure 1: 148/84 Code : 8480-6 BMI: 25.9 Code : 13613-6 Heart Rate 1 : 81 bpm Height: 6' Respiratory Rate: 20 bpm SpO2: 99% Weight: 191 lbs 08/18/2017 Blood Pressure 1: 122 Code : 8480-6 BMI: 26.3 Code : 13408-2 Heart Rate 1 : 85 bpm Height: 6' SpO2: 95% Temperature: 36.6 (C) / 97.8 (F) Weight: 194 lbs 08/03/2017 Blood Pressure 1: 126/64 Code : 8480-6 BMI: 27.0 Code : 69423-8 Heart Rate 1 : 92 bpm Height: 6' SpO2: 94% Temperature: 37.4 (C) / 99.3 (F) Weight: 199 lbs 07/05/2017 Blood Pressure 1: 134/66 Code : 8480-6 BMI: 27.1 Code : 62658-3 Heart Rate 1 : 72 bpm Height: 6' SpO2: 96% Weight: 200 lbs 04/23/2017 Blood Pressure 1: 130/72 Code : 8480-6 BMI: 25.9 Code : 69510-3 Heart Rate 1 : 56 bpm Height: 6' SpO2: 97% Weight: 191 lbs 04/08/2017 Blood Pressure 1: 116/64 Code : 8480-6 BMI: 25.9 Code : 45208-7 Heart Rate 1 : 71 bpm Height: 6' SpO2: 97% Weight: 191 lbs 01/21/2017 Blood Pressure 1: 132/74 Code : 8480-6 BMI: 26.0 Code : 06796-4 Heart Rate 1 : 54 bpm Height: 6' SpO2: 94% Weight: 192 lbs 10/19/2016 Blood Pressure 1: 132/64 Code : 8480-6 BMI: 27.7 Code : 59102-5 Heart Rate 1 : 77 bpm Height: 6' SpO2: 98% Weight: 204 lbs 07/23/2016 Blood Pressure 1: 130/62 Code : 8480-6 BMI: 27.8 Code : 23479-3 Heart Rate 1 : 95 bpm Height: 6' SpO2: 97% Weight: 205 lbs 05/19/2016 Blood Pressure 1: 118/70 Code : 8480-6 BMI: 27.9 Code : 16628-0 Heart Rate 1 : 76 bpm Height: 6' SpO2: 97% Weight: 206 lbs 04/21/2016 Blood Pressure 1: 130/70 Code : 8480-6 BMI: 27.9 Code : 87652-2 Heart Rate 1 : 76 bpm Height: 6' SpO2: 96% Weight: 206 lbs 03/26/2016 Blood Pressure 1: 130/78 Code : 8480-6 BMI: 27.7 Code : 06635-0 Heart Rate 1 : 61 bpm Height: 6' SpO2: 98% Weight: 204 lbs 01/27/2016 Blood Pressure 1: 124/80 Code : 8480-6 BMI: 27.5 Code : 01304-8 Heart Rate 1 : 78 bpm Height: 6' SpO2: 96% Weight: 203 lbs 10/28/2015 Blood Pressure 1: 138/78 Code : 8480-6 BMI: 27.7 Code : 35420-1 Heart Rate 1 : 76 bpm Height: 6' SpO2: 98% Weight: 204 lbs 08/27/2015 Blood Pressure 1: 128/56 Code : 8480-6 BMI: 27.4 Code : 88487-9 Heart Rate 1 : 49 bpm Height: 6' SpO2: 98% Weight: 202 lbs 06/06/2015 Blood Pressure 1: 128/62 Code : 8480-6 BMI: 26.0 Code : 34952-1 Heart Rate 1 : 80 bpm Height: 6' SpO2: 98% Weight: 192 lbs 04/30/2015 Blood Pressure 1: 138/64 Code : 8480-6 BMI: 19.2 Code : 47404-0 Heart Rate 1 : 71 bpm Height: 6' SpO2: 94% Weight: 141 lbs 8 oz 04/23/2015 Blood Pressure 1: 128/64 Code : 8480-6 BMI: 25.6 Code : 82021-9 Heart Rate 1 : 66 bpm Height: 6' SpO2: 98% Weight: 189 lbs 03/04/2015 Blood Pressure 1: 132/50 Code : 8480-6 BMI: 25.8 Code : 57171-3 Heart Rate 1 : 63 bpm Height: 6' SpO2: 97% Weight: 190 lbs 12/04/2014 Blood Pressure 1: 112/68 Code : 8480-6 BMI: 26.9 Code : 49506-0 Heart Rate 1 : 68 bpm Height: [...] Encounters Encounter Performer Location Codes Date () [id number] EST. PATIENT, LEVEL IV Diagnosis: Pain in thoracic spine[ICD10: M54.6] Diagnosis: Low back pain[ICD10: M54.5] Diagnosis: Mild cognitive impairment, so stated[ICD10: G31.84] [facility] CPT-4: 42325 03/03/2018 25821 EST. PATIENT, LEVEL IV Diagnosis: Essential (primary) hypertension[ICD10: I10] Diagnosis: Type 2 diabetes mellitus without complications[ICD10: E11.9] Diagnosis: Hypothyroidism, unspecified[ICD10: E03.9] Diagnosis: Mixed hyperlipidemia[ICD10: E78.2] Diagnosis: Other allergic rhinitis[ICD10: J30.89] [facility] CPT-4: 55995 01/10/2018 70770 EST. PATIENT, LEVEL II Diagnosis: Laceration without foreign body of left forearm, initial encounter[ ICD10: S51.812A] Shalini Iyer MD, [facility] CPT-4: 94155 12/16/2017 ([id number]) 80668 EST. PATIENT, LEVEL I Diagnosis: Laceration without foreign body of left hand, initial encounter[ICD10 : S61.412A] Ayana Iyer MD, [facility] CPT-4: 82065 68188 EST. PATIENT, LEVEL III Diagnosis: Dizziness and giddiness[ICD10: R42] Diagnosis: Syncope and collapse[ICD10: R55] Diagnosis: Other allergic rhinitis[ICD10: J30.89] Zenobia Iyer MD, [facility] CPT-4: 58432 10/13/2017 ([id number]) 81927 EST. PATIENT, LEVEL IV Diagnosis: Type 2 diabetes mellitus without complications[ICD10: E11.9] Diagnosis: Essential (primary) hypertension[ICD10: I10] Diagnosis: Mixed hyperlipidemia[ICD10: E78.2] Diagnosis: Hypothyroidism, unspecified[ICD10: E03.9] Shalini Iyer MD, [facility] CPT-4: 80817 10/04/2017 ([id number]) 33875 EST. PATIENT, LEVEL III Diagnosis: Essential (primary) hypertension[ICD10: I10] Diagnosis: Type 2 diabetes mellitus without complications[ICD10: E11.9] Diagnosis: Cough[ICD10: R05] Ayana Iyer MD, [facility] CPT-4: 87672 09/01/2017 09156 EST. PATIENT, LEVEL IV Diagnosis: Cough[ICD10: R05] Diagnosis: Acute bronchitis due to other specified organisms[ICD10: J20.8] Zenobia Iyer MD, [facility] CPT-4: 78745 08/18/2017 ([id number]) 01845 EST. PATIENT, LEVEL III Diagnosis: Cough[ICD10: R05] Diagnosis: Acute bronchitis due to other specified organisms[ICD10: J20.8] Ayana Iyer MD, [facility] CPT-4: 07142 08/03/2017 ([id number]) 02743 EST. PATIENT, LEVEL III Diagnosis: Essential (primary) hypertension[ICD10: I10] Shalini Iyer MD, [facility] CPT-4: 91671 07/05/2017 ([id number]) 84838 EST. PATIENT, LEVEL IV Diagnosis: Essential (primary) hypertension[ICD10: I10] Diagnosis: Type 2 diabetes mellitus without complications[ICD10: E11.9] Diagnosis: Hypothyroidism, unspecified[ICD10: E03.9] Shalini Iyer MD, [facility] CPT-4: 86287 04/23/2017 ([id number]) 03564 EST. PATIENT, LEVEL III Diagnosis: Other allergic rhinitis[ICD10: J30.89] Shalini Iyer MD, [facility] CPT-4: 39494 04/08/2017 ([id number]) 07987 EST. PATIENT, LEVEL IV Diagnosis: Type 2 diabetes mellitus without complications[ICD10: E11.9] Diagnosis: Essential (primary) hypertension[ICD10: I10] Diagnosis: Hypothyroidism, unspecified[ICD10: E03.9] Diagnosis: Allergic rhinitis due to pollen[ICD10: J30.1] Shalini Iyer MD, [facility] CPT-4: 80955 01/21/2017 ([id number]) 09938 EST. PATIENT, LEVEL IV Diagnosis: Essential (primary) hypertension[ICD10: I10] Diagnosis: Mixed hyperlipidemia[ICD10: E78.2] Diagnosis: Hypothyroidism, unspecified[ICD10: E03.9] Diagnosis: Pain in left knee[ICD10: M25.562] Diagnosis: Type 2 diabetes mellitus without complications[ICD10: E11.9] Shalini Iyer MD, [facility] CPT-4: 13990 10/19/2016 ([id number]) 95133 EST. PATIENT, LEVEL IV Diagnosis: Essential (primary) hypertension[ICD10: I10] Diagnosis: Type 2 diabetes mellitus without complications[ICD10: E11.9] Diagnosis: Hypothyroidism, unspecified[ICD10: E03.9] Diagnosis: Mixed hyperlipidemia[ICD10: E78.2] Shalini Iyer MD, [facility] CPT-4: 98956 07/23/2016 ([id number]) 61291 EST. PATIENT, LEVEL III Diagnosis: Acute recurrent maxillary sinusitis[ICD10: J01.01] Shalini Iyer MD, [facility] CPT-4: 10010 05/19/2016 ([id number]) 68159 EST. PATIENT, LEVEL III Diagnosis: Type 2 diabetes mellitus without complications[ICD10: E11.9] Diagnosis: Essential (primary) hypertension[ICD10: I10] Diagnosis: Allergic rhinitis due to pollen[ICD10: J30.1] Shalini Iyer MD, [facility] CPT-4: 51540 04/21/2016 ([id number]) 88399 EST. PATIENT, LEVEL III Diagnosis: Pain in left knee[ICD10: M25.562] Diagnosis: Localized edema[ICD10: R60.0] Shalini Iyer MD, [facility] CPT-4: 79251 03/26/2016 ([id number]) 81802 EST. PATIENT, LEVEL IV Diagnosis: Essential (primary) hypertension[ICD10: I10] Diagnosis: Type 2 diabetes mellitus without complications[ICD10: E11.9] Diagnosis: Pain in right shoulder[ICD10: M25.511] Shalini Iyer MD, [facility] CPT-4: 60955 01/27/2016 ([id number]) 15681 EST. PATIENT, LEVEL IV Diagnosis: Essential (primary) hypertension[ICD10: I10] Diagnosis: Allergic rhinitis due to pollen[ICD10: J30.1] Diagnosis: Type 2 diabetes mellitus without complications[ICD10: E11.9] Diagnosis: Hypothyroidism, unspecified[ICD10: E03.9] Shalini Iyer MD [facility] CPT-4: 43962 10/28/2015 ([id number]) 43529 EST. PATIENT, LEVEL IV Diagnosis: Essential (primary) hypertension[ICD10: I10] Diagnosis: Type 2 diabetes mellitus without complications[ICD10: E11.9] Diagnosis: Hypothyroidism, unspecified[ICD10: E03.9] Diagnosis: Lichen planus, unspecified[ICD10: L43.9] Shalini Iyer MD, [facility] CPT-4: 04150 08/27/2015 ([id number]) 53043 EST. PATIENT, LEVEL III Diagnosis: Cervical disc disorder with radiculopathy, unspecified cervical region[ICD10: M50.10] Diagnosis: Type 2 diabetes mellitus without complications[ICD10: E11.9] Diagnosis: Essential (primary) hypertension[ICD10: I10] Shalini Iyer MD, [facility] CPT-4: 60188 06/06/2015 ([id number]) 01743 EST. PATIENT, LEVEL III Diagnosis: Cervicalgia[ICD10: M54.2] Shalini Iyer MD, [facility] CPT-4: 32351 04/30/2015 ([id number]) 42461 EST. PATIENT, LEVEL III Diagnosis: Essential (primary) hypertension[ICD10: I10] Diagnosis: Type 2 diabetes mellitus without complications[ICD10: E11.9] Diagnosis: Primary osteoarthritis, unspecified site[ICD10: M19.91] Shalini Iyer MD, [facility] CPT-4: 03770 04/23/2015 ([id number]) 34068 EST. PATIENT, LEVEL IV Diagnosis: ESSENTIAL HYPERTENSION[ICD9: 401.9] Diagnosis: DIABETES TYPE II[ICD9: 250.00] Diagnosis: Osteoarthritis[ICD9: 715.90] Shalini Iyer MD, [facility] CPT-4: 54505 03/04/2015 ([id number]) OFFICE VISIT, NEW - LEVEL 4 Diagnosis: ESSENTIAL HYPERTENSION[ICD9: 401.9] Diagnosis: Hypothyroidism[ICD9: 244.9] Diagnosis: DIABETES TYPE II[ICD9: 250.00] Diagnosis: ACTINIC KERATOSIS[ICD9: 702.0] Shalini Iyer MD, [facility] CPT-4: 78543 12/04/2014 Plan of Care Planned Activity Notes [...] of testing. 03/03/2018 Appointment: Shalini Mitchell WPtel: [address] [place], [place] [phone] (15 min) Moderate 03/03/2018 Patient Education: Patient [...] allergy spray. 01/10/2018 Appointment: Shalini Mitchell WPtel: [address] [place], [place] [phone] (15 min) Moderate 01/10/2018 Patient Education: Patient Medication Summary Completed 01/10/2018 Visit Plan: Wound Instructions - Pt was instructed to keep the wound clean, wash with antibacterial soap, use triple antibiotic ointment, call if redness, pustular drainage, or any other acute concerns. 12/16/2017 [facility] [phone] [phone] (10 min) Simple 12/16/2017 Patient Education: Patient [...] or concerns. 10/13/2017 Appointment: [facility] [phone] [phone] (30 min) Complex 10/13/2017 Patient Education: Patient Medication Summary Completed 10/13/2017 Appointment: Shalini Mitchell WPtel: [phone] [phone] (30 min) Complex 10/05/2017 Visit Plan: Diabetes [...] to medications. 10/04/2017 Appointment: Shalini Mitchell WPtel: [address] [place], [place] [phone] (30 min) [facility] 10/04/2017 Patient Education: Patient Medication Summary Completed [...] finish antibiotics. 09/01/2017 Appointment: Ayana Iyer WPtel: [phone] [facility] (15 min) Moderate 09/01/2017 Patient Education: Patient Medication Summary Completed 09/01/2017 Visit Plan: Bronchitis - acute case of bronchitis identified. Pt has been given antibiotics, steroids as appropriate, and pt has been instructed to call if symptoms are not improved, or if symptoms acutely worsen. 08/18/2017 Appointment: Zenobia Desouza WPtel: [phone] [phone] (15 min) Moderate 08/18/2017 Patient Education: Patient Medication Summary Completed 08/18/2017 Visit Plan: Bronchitis - acute case of bronchitis identified. Pt has been given antibiotics, breathing treatments as appropriate, and pt has been instructed to call if symptoms are not improved, or if symptoms acutely worsen. 08/03/2017 Appointment: Ayana Iyer WPtel: [phone] [phone] (15 min) Moderate 08/03/2017 Patient Education: Patient Medication Summary Completed 08/03/2017 Visit Plan: Hypertension - well controlled - continue with current medications, continue with no added salt diet. Pt has been encouraged to exercise daily. The pt has been advised to call the office if there are any acute concerns about change in blood pressure readings at home. 07/05/2017 Appointment: Shalini Mitchell WPtel: [phone] [phone] (30 min) Complex 07/05/2017 Patient Education: Patient Medication Summary Completed 07/05/2017 Patient Education: Patient Medication Summary Completed 04/30/2017 Care Plan: %Hba1C LOINC : 69536-7 Pending 04/30/2017 Visit Plan: Hypertension - well [...] of control. 04/23/2017 Appointment: [facility] [phone] [phone] (30 min) Complex 04/23/2017 Patient Education: Patient [...] allergy spray. 04/08/2017 Appointment: [facility] [phone] [phone] (15 min) Moderate 04/08/2017 Patient Education: Patient [...] allergy spray. 01/21/2017 Appointment: Shalini Mitchell WPtel: [phone] [phone] (15 min) Moderate 01/21/2017 Patient Education: Patient Medication Summary Completed 01/21/2017 App[facility]ment: [facility] [phone] [phone] (15 min) Moderate 01/18/2017 Visit Plan: Hypertension [...] symptoms persist 10/19/2016 Appointment: Shalini Mitchell WPtel: [address] [place], [place] [phone] (30 min) [facility] 10/19/2016 Patient Education: Patient Medication Summary Completed [...] to medications. 07/23/2016 Appointment: Shalini Mitchell WPtel: [address] [place] [address] (30 min) Complex 07/23/2016 Patient Education: Patient Medication Summary Completed 07/23/2016 Visit Plan: Sinusitis - Pt has acute infection - pain in face, maxillary region, Pt informed to use decongestant, RX given to patient, sinus rinses also recommended. Call if symptoms do not show improvement. Kenalog injection today in the office. 05/19/2016 Appointment: Shalini Mitchell WPtel: [address] [place], [place] [id number] [place] [address] (15 min) Moderate 05/19/2016 Patient Education: Patient Medication Summary Completed 05/19/2016 Appointment: Injection 05/12/2016 Patient Education: Patient Medication Summary Completed 05/12/2016 Appointment: Injection 05/05/2016 Patient Education: Patient Medication Summary Completed 05/05/2016 Appointment: Shalini Mitchell WPtel: [id number] [place] [address] (30 min) Complex 05/01/2016 Appointment: Injection 04/24/2016 [...] allergy spray. 04/21/2016 Appointment: Shalini Mitchell WPtel: [address] [place], [place] [id number] [place] [address] (30 min) Complex 04/21/2016 Patient Education: Patient [...] peripheral edema. 03/26/2016 Appointment: Shalini Mitchell WPtel: [address] [place], [place] [id number] [place] [address] (15 min) Moderate 03/26/2016 Patient Education: Patient [...] controlled. Right shoulder pain-refer for PT at [facility] 01/27/2016 Appointment: (30 min) Complex 01/27/2016 Patient [...] based on previous levels of control. Lichen znqftd-osqvh-ks manager long term care doxycycline per Dr Eduardo centeno-check labs- continue clobetasol 08/27/2015 Visit Plan: Hypertension - well controlled [...] based on previous levels of control. 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 Hypertension - well controlled - continue [...] x 3-liquid nitrogen to lesions x 3 kenalog . Allergies - chronic - recommended pt [...] spray in the nasal steroid allergy spray. Refer to Doreen for PT-DX right shoulder [...] controlled. Right shoulder pain-refer for PT at [facility] FASTING LABS ON WEDNESDAY AT [facility] [employer] PAPERWORK CONCERNING FITTED SHOES FROM DR. COLÓN TO BE FAXED TO OFFICE AFTER DR. IYER SIGNS JEWELUVIA SAMPLES GIVEN IN OFFICE . Hypertension - [...] symptoms persist FASTING LABS ON WEDNESDAY AT [facility] [employer] CONCERNING FITTED SHOES FROM DR. COLÓN TO BE FAXED TO OFFICE AFTER DR. IYER SIGNS LENIN SAMPLES GIVEN IN OFFICE . Hypertension - [...] knee pain-refer for PT if symptoms persist . Wound Instructions - Pt was instructed to keep the wound clean, wash with antibacterial soap, use triple antibiotic ointment, call if redness, pustular drainage, or any other acute concerns. . Hypertension - well controlled - [...] 100 feet without stopping to rest. . Allergies - chronic - recommended pt [...] any acute changes, questions, or concerns. . Neck pain-not improving with physical therapy-recommend xray of cervical spine and proceed with MRI if indicated. Patient verbalized understanding of plan. . 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 Check fasting labs . Hypertension - well [...] based on previous levels of control. Lichen ycsajq-wxhzy-ci manager long term care doxycycline per Dr Eduardo centeno-check labs-continue clobetasol Check fasting labs . Hypertension - well [...] based on previous levels of control. 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 Thoracic and lumbar spine pain -recommend [...] next office visit after review of testing. SWITCH BACK TO ELLIE DAILY FOR ALLERGY [...] based on previous levels of control. . Skin tear left hand - cleansed and dressed by staff. . Diabetes Mellitus -I have recommended for [...] in blood pressure readings at home. . Left knee pain-continue rest, ice, and [...] further attempt to reduce peripheral edema. . Bronchitis - acute case of bronchitis identified. Pt has been given antibiotics, steroids as appropriate, and pt has been instructed to call if symptoms are not improved, or if symptoms acutely worsen. . Bronchitis - acute case of bronchitis [...]
--- OUTSIDE RECORDS SUMMARY | 2018-04-26 11:49 | XMS REPORT | CCD ---
Author Author Shalini Mitchell MD, [facility] Address [address] [place] [address] Phone Care Team Providers Care Product Support Analyst Name Role Phone PP Unavailable CCM Unavailable Summary Purpose Interface Exchange Insurance Providers Payer name Policy type / Coverage type Covered democrat ID Effective Begin Date Effective End Date WPS Medicare Part B Medicare Part B [id number] Unknown [facility] Medicare Part B [id number] Unknown Family history Mother Diagnosis Age At Onset advanced age Unknown Father Diagnosis Age At Onset autoimmune disease Unknown Social History Social History Element Codes Description Effective Dates Marital status Unknown 12/04/2014 Number of children Unknown 3 12/04/2014 Employment Unknown [employer] 12/04/[address]: 7461287 Quit over 10 years ago 12/04/[address]: 735830600 Never drinks alcohol 12/04/2014 Allergies, Adverse Reactions, [...] Fill Instructions Xyzal 5 mg tablet RxNorm: 625628 1 Tablet(s) PO daily 201706/23/2018 Active Xyzal 5 mg tablet RxNorm: 438715 1 Tablet(s) PO daily 201702/23/2018 Inactive metoprolol succinate ER 25 mg tablet,extended release 24 hr RxNorm: 489198 TAKE ONE TABLET BY MOUTH ONCE DAILY 01/10/2018 No Stop Date Active baclofen 10 mg tablet RxNorm: 060450 TAKE ONE TABLET BY MOUTH THREE TIMES DAILY NEEDED FOR MUSCLE SPASM 12/16/2017 No Stop Date Active Jardiance 10 mg tablet RxNorm: 9403670 1 Tablet(s) PO daily 11/201704/18/2018 Active tamsulosin 0.4 mg capsule RxNorm: 173017 TAKE ONE CAPSULE BY MOUTH ONCE DAILY 10/04/2017 No Stop Date Active Zithromax Z-Anil 250 mg tablet RxNorm: 216619 1 Tablet(s) PO UD 08/30/2017 09/03/2017 Inactive zpack Tessalon 200 mg capsule RxNorm: 835853 1 Capsule(s) PO TID as needed 08/23/2017 09/11/2017 Inactive Tessalon 200 mg capsule RxNorm: 089680 1 Capsule(s) PO TID as needed 08/23/2017 08/22/2017 Inactive prednisone 10 mg tablet RxNorm: 459678 Tablet(s) PO UD 2017 No Stop Date Active 6,5,4,3,2,1 doxycycline hyclate 100 mg capsule RxNorm: 7115919 1 Capsule(s) PO BID 08/18/2017 08/27/2017 Inactive Phenergan-Codeine 6.25 mg-10 mg/5 mL syrup RxNorm: 737989 5 to 10 ml PO Q6 as needed 08/17/2017 08/22/2017 Inactive Zithromax Z-Anil 250 mg tablet RxNorm: 140125 1 Tablet(s) PO UD 2017 08/17/2017 Inactive zpack ceftriaxone 500 mg solution for injection RxNorm: 2614941 Inj 08/03/2017 08/03/2017 Inactive cephalexin 500 mg capsule RxNorm: 198674 1 Capsule(s) PO QID 08/09/2017 Inactive Kenalog 40 mg/mL suspension for injection RxNorm: 0196695 1 Milliliter(s) Inj 08/03/2017 08/03/2017 Inactive losartan 50 mg tablet RxNorm: 720580 TAKE ONE TABLET BY MOUTH ONCE DAILY IN THE MORNING 08/02/2017 No Stop Date Active simvastatin 10 mg tablet RxNorm: 426680 TAKE ONE TABLET BY MOUTH ONCE DAILY 08/02/2017 No Stop Date Active levothyroxine 137 mcg tablet RxNorm: 181720 TAKE ONE TABLET BY MOUTH ONCE DAILY 07/26/2017 No Stop Date Active Flonase Allergy Relief 50 mcg/actuation nasal spray, suspension RxNorm: 6577552 USE TWO SPRAY(S) IN EACH NOSTRIL ONCE DAILY 06/28/2017 No Stop Date Active baclofen 10 mg tablet RxNorm: 300946 TAKE ONE TABLET BY MOUTH THREE TIMES DAILY NEEDED FOR MUSCLE SPASM 06/28/20172017 Inactive Kenalog 40 mg/mL suspension for injection RxNorm: 6820486 1 Milliliter(s) Inj 04/08/2017 04/08/2017 Inactive doxycycline hyclate 100 mg tablet RxNorm: 129542 1 Tablet(s) PO BID 04/01/2017 04/10/2017 Inactive PLEASE GIVE 90 DAY SUPPLY losartan 50 mg tablet RxNorm: 232169 TAKE ONE TABLET BY MOUTH ONCE DAILY IN THE MORNING 02/01/2017 07/30/2017 Inactive levothyroxine 137 mcg tablet RxNorm: 177666 1 Tablet(s) PO daily 01/22/2017 07/20/2017 Inactive hold until he calls for fill- using samples from office metoprolol succinate ER 25 mg tablet,extended release 24 hr RxNorm: 250601 1 Tablet(s) PO daily 01/11/2017 01/05/2018 Inactive tamsulosin 0.4 mg capsule RxNorm: 203239 TAKE ONE CAPSULE BY MOUTH ONCE DAILY 01/11/2017 10/03/2017 Inactive simvastatin 10 mg tablet RxNorm: 148369 TAKE ONE TABLET BY MOUTH ONCE DAILY 12/17/2016 06/14/2017 Inactive levothyroxine 150 mcg tablet RxNorm: 544131 1 Tablet(s) PO daily 09/24/2016 01/21/2017 Inactive doxycycline hyclate 100 mg tablet RxNorm: 398423 1 Tablet(s) PO daily 07/30/2016 01/25/2017 Inactive PLEASE GIVE 90 DAY SUPPLY doxycycline hyclate 100 mg tablet RxNorm: 428454 1 Tablet(s) PO daily 07/27/2016 07/29/2016 Inactive PLEASE GIVE 90 DAY SUPPLY quinine 324 mg capsule RxNorm: 543983 1 Capsule(s) PO HS PRN No Stop Date Active LEG CRAMPS doxycycline hyclate 100 mg tablet RxNorm: 299874 1 Tablet(s) PO daily 05/29/2016 07/26/2016 Inactive PLEASE GIVE 90 DAY SUPPLY Kenalog 40 mg/mL suspension for injection RxNorm: 6087044 Milliliter(s) Inj 05/19/2016 05/19/2016 Inactive Levaquin 500 mg tablet RxNorm: 470681 1 Tablet(s) PO daily 07/201505/25/2016 Inactive Zithromax Z-Anil 250 mg tablet RxNorm: 942690 1 Tablet(s) PO UD 05/14/2016 09/09/2016 Inactive zpack Kenalog 40 mg/mL suspension for injection RxNorm: 1094853 Milliliter(s) Inj 05/12/2016 05/12/2016 Inactive Zithromax Z-Anil 250 mg tablet RxNorm: 404930 1 Tablet(s) PO UD 05/08/2016 05/12/2016 Inactive zpack Flonase Allergy Relief 50 mcg/actuation nasal spray, suspension RxNorm: 2358642 2 [place] NASAL daily 04/21/20162016 Inactive levothyroxine 150 mcg tablet RxNorm: 289802 1 Tablet(s) PO daily 04/21/2016 09/23/2016 Inactive baclofen 10 mg tablet RxNorm: 368331 1 Tablet(s) PO TID as needed for muscle spasms 04/10/2016 11/05/2016 Inactive Flonase Allergy Relief 50 mcg/actuation nasal spray, suspension RxNorm: 7732212 2 [place] NASAL daily 01/27/20162015 Inactive losartan 50 mg tablet RxNorm: 263424 1 Tablet(s) PO QAM 201501/09/2017 Inactive magnesium oxide 400 mg tablet RxNorm: 253797 1 Tablet(s) PO daily 01/16/2016 01/09/2017 Inactive omega 0-vox-xxq-fish oil 300 mg-1,000 mg capsule,delayed release RxNorm: 1 Capsule(s) PO daily 01/16/2016 01/09/2017 Inactive ask pt if this is needed- he may use OTC levothyroxine 175 mcg tablet RxNorm: 788162 1 Tablet(s) PO daily 01/16/2016 04/20/2016 Inactive metoprolol succinate ER 25 mg tablet,extended release 24 hr RxNorm: 170456 1 Tablet(s) PO daily 01/16/2016 01/09/2017 Inactive baclofen 10 mg tablet RxNorm: 762019 1 Tablet(s) PO TID as needed for muscle spasms 01/16/2016 04/09/2016 Inactive omega 0-erb-pdn-fish oil 300 mg-1,000 mg capsule,delayed release RxNorm: 1 Capsule(s) PO daily 01/16/2016 01/15/2016 Inactive ask pt if this is needed- he may use OTC simvastatin 10 mg tablet RxNorm: 918730 1 Tablet(s) PO daily 12/16/2016 Inactive tamsulosin 0.4 mg capsule RxNorm: 295139 TAKE ONE CAPSULE BY MOUTH ONCE DAILY 01/05/2016 01/10/2017 Inactive levothyroxine 150 mcg tablet RxNorm: 370566 1 Tablet(s) PO daily 12/05/2015 12/04/2015 Inactive levothyroxine 150 mcg tablet RxNorm: 680705 1 Tablet(s) PO daily 12/05/2015 01/15/2016 Inactive metoprolol succinate ER 25 mg tablet,extended release 24 hr RxNorm: 167522 1 Tablet(s) PO daily 10/22/2015 01/15/2016 Inactive losartan 50 mg tablet RxNorm: 764404 1 Tablet(s) PO QAM 201501/15/2016 Inactive levothyroxine 175 mcg tablet RxNorm: 008866 1 Tablet(s) PO daily 09/09/2015 12/04/2015 Inactive doxycycline hyclate 100 mg tablet RxNorm: 352243 1 Tablet(s) PO daily 08/27/2015 01/15/2016 Inactive PLEASE GIVE 90 DAY SUPPLY doxycycline hyclate 100 mg tablet RxNorm: 683007 1 Tablet(s) PO daily 08/27/2015 08/26/2015 Inactive chlorzoxazone 500 mg tablet RxNorm: 005448 1 Tablet(s) PO Q6 as needed muscle spasms 08/15/2015 03/11/2016 Inactive chlorzoxazone 500 mg tablet RxNorm: 081142 1 Tablet(s) PO Q6 as needed muscle spasms 08/15/2015 08/14/2015 Inactive ketoconazole 2 % shampoo RxNorm: 671202 1 Application TOP UD 08/04/2015 Inactive ketoconazole 2 % shampoo RxNorm: 912879 1 Application TOP UD 01/15/2016 Inactive clobetasol 0.05 % topical solution RxNorm: 153285 1 Application TOP daily 08/01/2015 07/31/2015 Inactive clobetasol 0.05 % topical solution RxNorm: 055146 1 Application TOP daily 08/01/2015 01/15/2016 Inactive levothyroxine 175 mcg tablet RxNorm: 433276 1 Tablet(s) PO daily 07/22/2015 09/08/2015 Inactive doxycycline hyclate 100 mg tablet RxNorm: 528018 1 Tablet(s) PO daily 07/17/2015 08/15/2015 Inactive levothyroxine 175 mcg tablet RxNorm: 371901 Tablet(s) PO every other day 07/17/2015 07/21/2015 Inactive Zithromax Z-Anil 250 mg tablet RxNorm: 975795 1 Tablet(s) PO 05/07/2016 Inactive 1 zpack finasteride 5 mg tablet RxNorm: 208674 1 Tablet(s) PO daily 12/27/2015 Inactive simvastatin 10 mg tablet RxNorm: 218463 1 Tablet(s) PO daily 12/27/2015 Inactive clopidogrel 75 mg tablet RxNorm: 844726 1 Tablet(s) PO daily 01/15/2016 Inactive metoprolol succinate ER 25 mg tablet,extended release 24 hr RxNorm: 609029 1 Tablet(s) PO daily 07/01/2015 10/21/2015 Inactive levothyroxine 150 mcg tablet RxNorm: 166232 1 Tablet(s) PO daily 07/01/2015 07/21/2015 Inactive tamsulosin 0.4 mg capsule RxNorm: 654870 1 Capsule(s) PO daily 07/01/2015 12/27/2015 Inactive losartan 50 mg tablet RxNorm: 755996 1 Tablet(s) PO QAM 201410/17/2015 Inactive levothyroxine 150 mcg tablet RxNorm: 828197 1 Tablet(s) PO daily 07/01/2015 06/30/2015 Inactive Zithromax Z-Anil 250 mg tablet RxNorm: 879542 1 Tablet(s) PO 03/201507/09/2015 Inactive 1 zpack Januvia 100 mg tablet RxNorm: 147052 1/2 Tablet(s) PO BID 201410/20/2017 Inactive Januvia 50 mg tablet RxNorm: 100422 1 Tablet(s) PO BID 201404/22/2015 Inactive chlorzoxazone 500 mg tablet RxNorm: 509989 1 Tablet(s) PO Q6 as needed muscle spasms 01/21/2015 01/20/2015 Inactive baclofen 10 mg tablet RxNorm: 733732 1 Tablet(s) PO TID as needed for muscle spasms 01/21/2015 06/30/2015 Inactive chlorzoxazone 500 mg tablet RxNorm: 569513 1 Tablet(s) PO Q6 as needed muscle spasms 01/21/2015 03/03/2015 Inactive Vitamin D3 2,000 unit tablet RxNorm: 086606 Tablet(s) PO BID No Stop Date Active [SAVINGS FOR NON-COVERED DRUGS -- BIN:[id number], PCN: [id number], Group: [id number] , ID# [id number], Questions: . THIS IS NOT INSURANCE.] Claritin 10 mg tablet RxNorm: 248097 1 Tablet(s) PO daily No Start Date Active aspirin 81 mg tablet RxNorm: 523563 Tablet(s) PO daily No Start Date Active Centrum Silver oral RxNorm: 26008 oral No Start Date Active Calcium Citrate + D 600 mg RxNorm: 630mg PO daily No Start Date Active sodium chloride oral RxNorm: oral No Start Date Active Vitamin C 500 mg chewable tablet RxNorm: 759015 1 Tablet(s) PO No Start Date Active Cerefolin NAC (algal oil) 6 mg-600 mg-2 mg-90.314 mg tablet RxNorm: 1 Tablet (s) PO daily No Start Date Active Vitamin B12 Oral RxNorm: oral No Start Date Active Fish Oil (with DHA-EPA) capsule RxNorm: oral No Start Date 01/15/2016 Inactive clopidogrel 75 mg tablet RxNorm: 027089 1 Tablet(s) PO daily No Start Date 06/30/2015 Inactive metoprolol succinate ER 25 mg tablet,extended release 24 hr RxNorm: 667991 1 Tablet(s) PO daily No Start Date 2014 Inactive simvastatin 10 mg tablet RxNorm: 274106 1 Tablet(s) PO daily No Start Date 06/30/2015 Inactive Claritin 10 mg tablet RxNorm: 900023 1 Tablet(s) PO daily No Start Date 07/16/2015 Inactive levothyroxine 175 mcg tablet RxNorm: 066665 Tablet(s) PO every other day No Start Date 06/30/2015 Inactive Vitamin D3 2,000 unit tablet RxNorm: 060939 Tablet(s) PO daily No Start Date 12/03/2014 Inactive losartan 50 mg tablet RxNorm: 217455 1 Tablet(s) PO QAM No Start Date 06/30/2015 Inactive magnesium oxide 400 mg tablet RxNorm: 767449 1 Tablet(s) PO daily No Start Date 01/15/2016 Inactive Phenergan-Codeine 6.25 mg-10 mg/5 mL syrup RxNorm: 426783 5 to 10 ml PO Q6 No Start Date 08/16/2017 Inactive baclofen 10 mg tablet RxNorm: 389103 1 Tablet(s) PO TID as needed for muscle spasms No Start Date 01/20/2015 Inactive finasteride 5 mg tablet RxNorm: 975257 1 Tablet(s) PO daily No Start Date 06/30/2015 Inactive quinine 324 mg capsule RxNorm: 182077 1 Capsule(s) PO HS PRN No Start Date 06/14/2016 Inactive LEG CRAMPS Vitamin D3 (with calcium carbonate) oral RxNorm: 035229 oral No Start Date 01/15/2016 Inactive Zithromax Z-Anil 250 mg tablet RxNorm: 471753 1 Tablet(s) PO No Start Date 06/25/2015 Inactive 1 zpack levothyroxine 150 mcg tablet RxNorm: 115939 Tablet(s) PO every other day No Start Date 06/30/2015 Inactive Januvia 50 mg tablet RxNorm: 386575 1 Tablet(s) PO daily No Start Date 03/06/2015 Inactive fluticasone 50 mcg/actuation nasal spray,suspension RxNorm: 015284 1 [place] NASAL daily No Start Date 01/15/2016 Inactive tamsulosin ER 0.4 mg capsule,extended release 24 hr RxNorm: 974341 1 Capsule(s) PO daily No Start Date 06/30/2015 Inactive Ellie 180 mg tablet RxNorm: 350698 1 Tablet(s) PO daily No Start Date 01/15/2016 Inactive Medication Administered Medication Codes Instructions Start Date Status ceftriaxone 500 mg solution for injection RxNorm: 5035658 08/03/2017 No longer Active Kenalog 40 mg/mL suspension for injection RxNorm: 6778775 1Milliliter 08/03/2017 No longer Active Kenalog 40 mg/mL suspension for injection RxNorm: 9308268 1Milliliter 04/08/2017 No longer Active Kenalog 40 mg/mL suspension for injection RxNorm: 1156235 Milliliter 05/19/2016 No longer Active Kenalog 40 mg/mL suspension for injection RxNorm: 6820963 Milliliter 05/12/2016 No longer Active Immunizations Vaccine [...] Lipid Ord30 C/HDL 2.8 Ratio 01/11/2018 %Hba1C Ave773 % HbA1c 10046-7 6.9 % 01/11/2018 %Hba1C Hip977 Gluc Ave 151 mg/dL 01/11/2018 Cbc With [...] 17.4 % 01/11/2018 Cbc With Differential Ord2 [place]% 13.3 % 01/11/2018 Cbc With Differential Ord2 [...] 1.20 K/ul 01/11/2018 Cbc With Differential Ord2 [place] ABS# 0.9 K/ul 01/11/2018 Cbc With Differential Ord2 Eos ABS# 0.4 K/ul 01/11/2018 Cbc With Differential Ord2 Baso ABS# 0.1 K/ul 01/11/2018 Tsh Ord6 TSH (3rd IS) 1.73 uIU/mL 01/11/2018 Comp Metabolic Ews868 NA 140 mEq/L 01/11/2018 Comp Metabolic Zvh100 K 4.1 mEq/L 01/11/2018 Comp Metabolic Soq776 CL 103 mEq/L 01/11/2018 Comp Metabolic Wwm881 CO2 28.0 mEq/L 01/11/2018 Comp Metabolic Vpa983 ANION GAP 13 01/11/2018 Comp Metabolic Anz194 GLUCOSE 151 mg/dL 01/11/2018 Comp Metabolic Mem035 Creat 0.9 mg/dL 01/11/2018 Comp Metabolic Pkt579 eGFR 87 ml/min/1.73m2 01/11/2018 Comp Metabolic Mxh411 BUN 18 mg/dL 01/11/2018 Comp Metabolic Wnf849 B/C Ratio 20.2 Ratio 01/11/2018 Comp Metabolic Niv523 CALCIUM 9.3 mg/dL 01/11/2018 Comp Metabolic Pgu937 ALK PHOS 70 U/L 01/11/2018 Comp Metabolic Vdn899 AST(SGOT) 18 U/L 01/11/2018 Comp Metabolic Mjp556 ALT(SGPT) 17 U/L 01/11/2018 Comp Metabolic Usf265 BILI T 0.7 mg/dL 01/11/2018 Comp Metabolic Hhd495 ALBUMIN 4.1 g/dL 01/11/2018 Comp Metabolic Pxv397 TPRO 6.4 g/dL 01/11/2018 Comp Metabolic Dpg091 GLOB 2.3 g/dL 01/11/2018 Comp Metabolic Hmq175 A/G Ratio 1.7 Ratio 01/11/2018 Comp Metabolic Mwi959 Osmo 284 mOsmo 01/11/2018 Free T4 Zhg697 FREE T4 0.80 ng/dL 10/08/2017 Lipid Ord30 CHOL 151 mg/dL 10/08/2017 Lipid Ord30 HDL 58.0 mg/dl 10/08/2017 Lipid Ord30 TRIG 126 mg/dL 10/08/2017 Lipid Ord30 LDL 68 mg/dL 10/08/2017 Lipid Ord30 C/HDL 2.6 Ratio 10/08/2017 Microalbumin Djw147 MicroAlb <0.7 mg/dL 10/08/2017 %Hba1C Vxd885 % HbA1c 06726-5 6.9 % 10/08/2017 %Hba1C Dce738 Gluc Ave 151 mg/dL 10/08/2017 Tsh Ord6 [...] 30.4 pg 10/08/2017 Cbc With Differential Ord2 [place]% 13.7 % 10/08/2017 Cbc With Differential Ord2 [...] 1.05 K/ul 10/08/2017 Cbc With Differential Ord2 [place] ABS# 0.8 K/ul 10/08/2017 Cbc With Differential Ord2 Eos ABS# 0.1 K/ul 10/08/2017 Cbc With Differential Ord2 Baso ABS# 0.0 K/ul 10/08/2017 Comp Metabolic Jux074 NA 141 mEq/L 10/08/2017 Comp Metabolic Zxl466 K 4.5 mEq/L 10/08/2017 Comp Metabolic Wsa153 CL 103 mEq/L 10/08/2017 Comp Metabolic Cza724 CO2 30.0 mEq/L 10/08/2017 Comp Metabolic Mmj144 ANION GAP 13 10/08/2017 Comp Metabolic Kvu024 GLUCOSE 150 mg/dL 10/08/2017 Comp Metabolic Xir738 Creat 0.9 mg/dL 10/08/2017 Comp Metabolic Lpq224 eGFR 85 ml/min/1.73m2 10/08/2017 Comp Metabolic Koe258 BUN 18 mg/dL 10/08/2017 Comp Metabolic Rgc642 B/C Ratio 19.8 Ratio 10/08/2017 Comp Metabolic Ahe903 CALCIUM 9.4 mg/dL 10/08/2017 Comp Metabolic Zgz960 ALK PHOS 60 U/L 10/08/2017 Comp Metabolic Eiv017 AST(SGOT) 17 U/L 10/08/2017 Comp Metabolic Geq157 ALT(SGPT) 17 U/L 10/08/2017 Comp Metabolic Xby764 BILI T 1.0 mg/dL 10/08/2017 Comp Metabolic Ntu809 ALBUMIN 4.0 g/dL 10/08/2017 Comp Metabolic Prm838 TPRO 6.3 g/dL 10/08/2017 Comp Metabolic Kvh135 GLOB 2.3 g/dL 10/08/2017 Comp Metabolic Gvq559 A/G Ratio 1.8 Ratio 10/08/2017 Comp Metabolic Fnq004 Osmo 286 mOsmo 10/08/2017 %Hba1C Wtl589 % HbA1c 95951-0 6.5 % 04/28/2017 %Hba1C Zck442 Gluc Ave 140 mg/dL 04/28/2017 Lipid Ord30 [...] 29.5 pg 04/28/2017 Cbc With Differential Ord2 [place]% 14.0 % 04/28/2017 Cbc With Differential Ord2 [...] 1.07 K/ul 04/28/2017 Cbc With Differential Ord2 [place] ABS# 1.0 K/ul 04/28/2017 Cbc With Differential Ord2 Eos ABS# 0.2 K/ul 04/28/2017 Cbc With Differential Ord2 Baso ABS# 0.0 K/ul 04/28/2017 Free T4 Sfh560 FREE T4 1.07 ng/dL 04/28/2017 Comp Metabolic Sta854 NA 140 mEq/L 04/28/2017 Comp Metabolic Ljl418 K 4.6 mEq/L 04/28/2017 Comp Metabolic Psk547 CL 104 mEq/L 04/28/2017 Comp Metabolic Blr849 CO2 27.0 mEq/L 04/28/2017 Comp Metabolic Hco943 ANION GAP 14 04/28/2017 Comp Metabolic Sly503 GLUCOSE 141 mg/dL 04/28/2017 Comp Metabolic Wvr308 Creat 1.0 mg/dL 04/28/2017 Comp Metabolic Yvk440 eGFR 79 ml/min/1.73m2 04/28/2017 Comp Metabolic Qts926 BUN 26 mg/dL 04/28/2017 Comp Metabolic Rau488 B/C Ratio 26.8 Ratio 04/28/2017 Comp Metabolic Vkq474 CALCIUM 9.4 mg/dL 04/28/2017 Comp Metabolic Svu793 ALK PHOS 66 U/L 04/28/2017 Comp Metabolic Ubd113 AST(SGOT) 21 U/L 04/28/2017 Comp Metabolic Qbl169 ALT(SGPT) 20 U/L 04/28/2017 Comp Metabolic Igj967 BILI T 1.3 mg/dL 04/28/2017 Comp Metabolic Yfz772 ALBUMIN 4.1 g/dL 04/28/2017 Comp Metabolic Sam674 TPRO 6.3 g/dL 04/28/2017 Comp Metabolic Jzm746 GLOB 2.2 g/dL 04/28/2017 Comp Metabolic Moz107 A/G Ratio 1.9 Ratio 04/28/2017 Comp Metabolic Ica351 Osmo 287 mOsmo 04/28/2017 %Hba1C Fte853 % HbA1c 62629-3 6.6 % 01/22/2017 %Hba1C Qap348 Gluc Ave 143 mg/dL 01/22/2017 Tsh Ord6 hTSH II 0.26 uIU/mL 01/22/2017 Cbc With Differential Ord2 WBC 6.68 K/ul 01/22/2017 Cbc With Differential Ord2 RBC 4.37 M/ul 01/22/2017 Cbc With Differential Ord2 HGB 13.2 g/dl 01/22/2017 Cbc With Differential Ord2 HCT 40.1 % 01/22/2017 Cbc With Differential Ord2 Neut% 67.6 % 01/22/2017 Cbc With Differential Ord2 MCV 91.8 fl 01/22/2017 Cbc With Differential Ord2 Lymph% 15.1 % 01/22/2017 Cbc With Differential Ord2 MCH 30.2 pg 01/22/2017 Cbc With Differential Ord2 [place]% 14.1 % 01/22/2017 Cbc With Differential Ord2 [...] 1.01 K/ul 01/22/2017 Cbc With Differential Ord2 [place] ABS# 0.9 K/ul 01/22/2017 Cbc With Differential Ord2 Eos ABS# 0.2 K/ul 01/22/2017 Cbc With Differential Ord2 Baso ABS# 0.1 K/ul 01/22/2017 Comp Metabolic Wyj501 NA 140 mEq/L 01/22/2017 Comp Metabolic Rrb674 K 4.3 mEq/L 01/22/2017 Comp Metabolic Fjz313 CL 104 mEq/L 01/22/2017 Comp Metabolic Ypk151 CO2 29.0 mEq/L 01/22/2017 Comp Metabolic Hdh550 ANION GAP 11 01/22/2017 Comp Metabolic Lqf527 GLUCOSE 146 mg/dL 01/22/2017 Comp Metabolic Ude090 Creat 0.8 mg/dL 01/22/2017 Comp Metabolic Eqg614 eGFR 100 ml/min/1.73m2 01/22/2017 Comp Metabolic Ofq489 BUN 19 mg/dL 01/22/2017 Comp Metabolic Kmb293 B/C Ratio 24.1 Ratio 01/22/2017 Comp Metabolic Jcn759 CALCIUM 9.2 mg/dL 01/22/2017 Comp Metabolic Jbs859 ALK PHOS 60 U/L 01/22/2017 Comp Metabolic Pdq166 AST(SGOT) 18 U/L 01/22/2017 Comp Metabolic Mom068 ALT(SGPT) 17 U/L 01/22/2017 Comp Metabolic Qpy099 BILI T 0.6 mg/dL 01/22/2017 Comp Metabolic Ncb664 ALBUMIN 3.7 g/dL 01/22/2017 Comp Metabolic Ssj764 TPRO 5.8 g/dL 01/22/2017 Comp Metabolic Idl990 GLOB 2.1 g/dL 01/22/2017 Comp Metabolic Mmn216 A/G Ratio 1.7 Ratio 01/22/2017 Comp Metabolic Ift397 Osmo 284 mOsmo 01/22/2017 Lipid Ord30 CHOL 126 mg/dL 01/22/2017 Lipid Ord30 HDL 43.0 mg/dl 01/22/2017 Lipid Ord30 TRIG 111 mg/dL 01/22/2017 Lipid Ord30 LDL 61 mg/dL 01/22/2017 Lipid Ord30 C/HDL 2.9 Ratio 01/22/2017 Free T4 Mks864 FREE T4 0.96 ng/dL 01/22/2017 Comp Metabolic Poa755 NA 141 mEq/L 10/23/2016 Comp Metabolic Exw131 K 4.3 mEq/L 10/23/2016 Comp Metabolic Kiu472 CL 104 mEq/L 10/23/2016 Comp Metabolic Ojz796 CO2 29.0 mEq/L 10/23/2016 Comp Metabolic Yba660 ANION GAP 12 10/23/2016 Comp Metabolic Xjg020 GLUCOSE 156 mg/dL 10/23/2016 Comp Metabolic Knw126 Creat 0.9 mg/dL 10/23/2016 Comp Metabolic Qde817 eGFR 85 ml/min/1.73m2 10/23/2016 Comp Metabolic Xtr114 BUN 19 mg/dL 10/23/2016 Comp Metabolic Grf807 B/C Ratio 20.9 Ratio 10/23/2016 Comp Metabolic Kza124 CALCIUM 9.2 mg/dL 10/23/2016 Comp Metabolic Bbn764 ALK PHOS 72 U/L 10/23/2016 Comp Metabolic Gms156 AST(SGOT) 21 U/L 10/23/2016 Comp Metabolic Lrk825 ALT(SGPT) 19 U/L 10/23/2016 Comp Metabolic Zal465 BILI T 0.8 mg/dL 10/23/2016 Comp Metabolic Mac767 ALBUMIN 3.8 g/dL 10/23/2016 Comp Metabolic Gom617 TPRO 6.2 g/dL 10/23/2016 Comp Metabolic Hhx275 GLOB 2.4 g/dL 10/23/2016 Comp Metabolic Fnd630 A/G Ratio 1.6 Ratio 10/23/2016 Comp Metabolic Sla791 Osmo 287 mOsmo 10/23/2016 Cbc With Differential [...] 92.9 fl 10/23/2016 Cbc With Differential Ord2 [place]% 12.7 % 10/23/2016 Cbc With Differential Ord2 [...] 0.79 K/ul 10/23/2016 Cbc With Differential Ord2 [place] ABS# 0.7 K/ul 10/23/2016 Cbc With Differential Ord2 Eos ABS# 0.2 K/ul 10/23/2016 Cbc With Differential Ord2 Baso ABS# 0.0 K/ul 10/23/2016 Lipid Ord30 CHOL 134 mg/dL 10/23/2016 Lipid Ord30 HDL 42.0 mg/dl 10/23/2016 Lipid Ord30 TRIG 101 mg/dL 10/23/2016 Lipid Ord30 LDL 72 mg/dL 10/23/2016 Lipid Ord30 C/HDL 3.2 Ratio 10/23/2016 Free T4 Cgd322 FREE T4 0.99 ng/dL 10/23/2016 Tsh Ord6 hTSH II 0.70 uIU/mL 10/23/2016 %Hba1C Kmd121 % HbA1c 63880-5 7.0 % 10/23/2016 %Hba1C Kqf072 Gluc Ave 154 mg/dL 10/23/2016 Lipid Ord30 CHOL 136 mg/dL 07/24/2016 Lipid Ord30 HDL 52.0 mg/dl 07/24/2016 Lipid Ord30 TRIG 83 mg/dL 07/24/2016 Lipid Ord30 LDL 67 mg/dL 07/24/2016 Lipid Ord30 C/HDL 2.6 Ratio 07/24/2016 %Hba1C Nqn913 % HbA1c 43510-9 7.1 % 07/24/2016 %Hba1C Jfs060 Gluc Ave 157 mg/dL 07/24/2016 Tsh Ord6 [...] 93.0 fl 07/24/2016 Cbc With Differential Ord2 [place]% 13.8 % 07/24/2016 Cbc With Differential Ord2 [...] 1.56 K/ul 07/24/2016 Cbc With Differential Ord2 [place] ABS# 1.0 K/ul 07/24/2016 Cbc With Differential Ord2 Eos ABS# 0.2 K/ul 07/24/2016 Cbc With Differential Ord2 Baso ABS# 0.0 K/ul 07/24/2016 Comp Metabolic Ecb697 NA 139 mEq/L 07/24/2016 Comp Metabolic Oro948 K 4.5 mEq/L 07/24/2016 Comp Metabolic Acc081 CL 103 mEq/L 07/24/2016 Comp Metabolic Lee967 CO2 30.0 mEq/L 07/24/2016 Comp Metabolic Hky865 ANION GAP 11 07/24/2016 Comp Metabolic Bsq641 GLUCOSE 161 mg/dL 07/24/2016 Comp Metabolic Ivp498 Creat 1.0 mg/dL 07/24/2016 Comp Metabolic Evu673 eGFR 80 ml/min/1.73m2 07/24/2016 Comp Metabolic Zow697 BUN 23 mg/dL 07/24/2016 Comp Metabolic Nkm993 B/C Ratio 24.0 Ratio 07/24/2016 Comp Metabolic Cyg542 CALCIUM 9.4 mg/dL 07/24/2016 Comp Metabolic Obq240 ALK PHOS 66 U/L 07/24/2016 Comp Metabolic Ryc842 AST(SGOT) 18 U/L 07/24/2016 Comp Metabolic Frd495 ALT(SGPT) 22 U/L 07/24/2016 Comp Metabolic Uvr156 BILI T 1.1 mg/dL 07/24/2016 Comp Metabolic Akx799 ALBUMIN 4.0 g/dL 07/24/2016 Comp Metabolic Kjj579 TPRO 6.4 g/dL 07/24/2016 Comp Metabolic Nag579 GLOB 2.4 g/dL 07/24/2016 Comp Metabolic Jxh622 A/G Ratio 1.6 Ratio 07/24/2016 Comp Metabolic Xlw358 Osmo 285 mOsmo 07/24/2016 %Hba1C Csr829 % HbA1c 06372-7 7.0 % 03/11/2016 %Hba1C Jer616 Gluc Ave 154 mg/dL 03/11/2016 Free T4 Tak334 FREE T4 0.92 ng/dL 03/11/2016 Tsh Ord6 hTSH II 0.92 uIU/mL 03/11/2016 %Hba1C Eex851 % HbA1c 53764-9 7.1 % 11/27/2015 %Hba1C Hvh997 Gluc Ave 157 mg/dL 11/27/2015 Free T4 Oif216 FREE T4 0.95 ng/dL 11/27/2015 Cbc With [...] 20.3 % 11/27/2015 Cbc With Differential Ord2 Mcminn% 13.5 % 11/27/2015 Cbc With Differential Ord2 [...] 1.26 K/ul 11/27/2015 Cbc With Differential Ord2 Mcminn ABS# 0.8 K/ul 11/27/2015 Cbc With Differential Ord2 Eos ABS# 0.2 K/ul 11/27/2015 Cbc With Differential Ord2 Baso ABS# 0.1 K/ul 11/27/2015 Cbc With Differential Ord2 New Analyzer Notice Please note new ref ranges starting 07-31-2015 due to implemntation of new five part differential hematolgy analyzer. 11/27/2015 Tsh Ord6 hTSH II 0.35 uIU/mL 11/27/2015 Comp Metabolic Qeo882 NA 139 mEq/L 11/27/2015 Comp Metabolic Lkk966 K 4.4 mEq/L 11/27/2015 Comp Metabolic Rlq084 CL 105 mEq/L 11/27/2015 Comp Metabolic Nvb742 CO2 28.0 mEq/L 11/27/2015 Comp Metabolic Crn930 ANION GAP 10 11/27/2015 Comp Metabolic Xbj908 GLUCOSE 139 mg/dL 11/27/2015 Comp Metabolic Bpw951 Creat 0.9 mg/dL 11/27/2015 Comp Metabolic Nib014 eGFR 89 ml/min/1.73m2 11/27/2015 Comp Metabolic Xzx902 BUN 15 mg/dL 11/27/2015 Comp Metabolic Ria808 B/C Ratio 17.2 Ratio 11/27/2015 Comp Metabolic Unw424 CALCIUM 8.8 mg/dL 11/27/2015 Comp Metabolic Qfv169 ALK PHOS 78 U/L 11/27/2015 Comp Metabolic Abp504 AST(SGOT) 18 U/L 11/27/2015 Comp Metabolic Zje514 ALT(SGPT) 16 U/L 11/27/2015 Comp Metabolic Lcf872 BILI T 0.9 mg/dL 11/27/2015 Comp Metabolic Evj130 ALBUMIN 3.7 g/dL 11/27/2015 Comp Metabolic Plm372 TPRO 6.2 g/dL 11/27/2015 Comp Metabolic Ucj408 GLOB 2.5 g/dL 11/27/2015 Comp Metabolic Ziy067 A/G Ratio 1.5 Ratio 11/27/2015 Comp Metabolic Iqp306 Osmo 281 mOsmo 11/27/2015 Lipid Ord30 CHOL 123 mg/dL 11/27/2015 Lipid Ord30 HDL 41.0 mg/dl 11/27/2015 Lipid Ord30 TRIG 130 mg/dL 11/27/2015 Lipid Ord30 LDL 56 mg/dL 11/27/2015 Lipid Ord30 C/HDL 3.0 Ratio 11/27/2015 Free T4 Boa862 FREE T4 0.87 ng/dL 08/28/2015 Lipid Ord30 [...] 23.8 % 08/28/2015 Cbc With Differential Ord2 Mcminn% 12.7 % 08/28/2015 Cbc With Differential Ord2 [...] 1.53 K/ul 08/28/2015 Cbc With Differential Ord2 Mcminn ABS# 0.8 K/ul 08/28/2015 Cbc With Differential Ord2 Eos ABS# 0.3 K/ul 08/28/2015 Cbc With Differential Ord2 Baso ABS# 0.1 K/ul 08/28/2015 Cbc With Differential Ord2 New Analyzer Notice Please note new ref ranges starting 07-31-2015 due to implemntation of new five part differential hematolgy analyzer. 08/28/2015 %Hba1C Omu330 % HbA1c 33178-7 6.9 % 08/28/2015 %Hba1C Kjx773 Gluc Ave 151 mg/dL 08/28/2015 Comp Metabolic Jdr099 NA 139 mEq/L 08/28/2015 Comp Metabolic Ycf801 K 4.5 mEq/L 08/28/2015 Comp Metabolic Epe400 CL 104 mEq/L 08/28/2015 Comp Metabolic Lvz449 CO2 28.0 mEq/L 08/28/2015 Comp Metabolic Rea646 ANION GAP 12 08/28/2015 Comp Metabolic Xlf930 GLUCOSE 146 mg/dL 08/28/2015 Comp Metabolic Nae396 Creat 1.0 mg/dL 08/28/2015 Comp Metabolic Wmi271 eGFR 77 ml/min/1.73m2 08/28/2015 Comp Metabolic Wfo931 BUN 21 mg/dL 08/28/2015 Comp Metabolic Ayc456 B/C Ratio 21.2 Ratio 08/28/2015 Comp Metabolic Hdh838 CALCIUM 9.3 mg/dL 08/28/2015 Comp Metabolic Len755 ALK PHOS 70 U/L 08/28/2015 Comp Metabolic Loh758 AST(SGOT) 18 U/L 08/28/2015 Comp Metabolic Mwq296 ALT(SGPT) 16 U/L 08/28/2015 Comp Metabolic Keu002 BILI T 0.6 mg/dL 08/28/2015 Comp Metabolic Cfh181 ALBUMIN 4.0 g/dL 08/28/2015 Comp Metabolic Mzu074 TPRO 6.4 g/dL 08/28/2015 Comp Metabolic Ysy605 GLOB 2.4 g/dL 08/28/2015 Comp Metabolic Ujo437 A/G Ratio 1.7 Ratio 08/28/2015 Comp Metabolic Xuh873 Osmo 283 mOsmo 08/28/2015 Lipid Ord30 CHOL 137 mg/dL 03/06/2015 Lipid Ord30 HDL 48.0 mg/dl 03/06/2015 Lipid Ord30 TRIG 121 mg/dL 03/06/2015 Lipid Ord30 LDL 65 mg/dL 03/06/2015 Lipid Ord30 C/HDL 2.9 Ratio 03/06/2015 %Hba1C Ild179 % HbA1c 78827-1 6.7 % 03/06/2015 %Hba1C Nmy798 Gluc Ave 146 mg/dL 03/06/2015 Tsh Ord6 [...] Ord2 RDW 14.5 % 03/06/2015 Comp Metabolic Fmr438 NA 137 mEq/L 03/06/2015 Comp Metabolic Hqt179 K 4.2 mEq/L 03/06/2015 Comp Metabolic Rfi498 CL 103 mEq/L 03/06/2015 Comp Metabolic Afk535 CO2 30.0 mEq/L 03/06/2015 Comp Metabolic Lht612 ANION GAP 8 03/06/2015 Comp Metabolic Pal815 GLUCOSE 156 mg/dL 03/06/2015 Comp Metabolic Fme598 Creat 1.0 mg/dL 03/06/2015 Comp Metabolic Qis304 eGFR 75 ml/min/1.73m2 03/06/2015 Comp Metabolic Gyh537 BUN 17 mg/dL 03/06/2015 Comp Metabolic Jbv340 B/C Ratio 16.7 Ratio 03/06/2015 Comp Metabolic Hio713 CALCIUM 9.2 mg/dL 03/06/2015 Comp Metabolic Tum538 ALK PHOS 75 U/L 03/06/2015 Comp Metabolic Fsb849 AST(SGOT) 17 U/L 03/06/2015 Comp Metabolic Dll158 ALT(SGPT) 16 U/L 03/06/2015 Comp Metabolic Xyk498 BILI T 0.8 mg/dL 03/06/2015 Comp Metabolic Eyw451 ALBUMIN 4.0 g/dL 03/06/2015 Comp Metabolic Wwz585 TPRO 6.3 g/dL 03/06/2015 Comp Metabolic Csy351 GLOB 2.3 g/dL 03/06/2015 Comp Metabolic Lzo547 A/G Ratio 1.7 Ratio 03/06/2015 Comp Metabolic Hkk315 Osmo 279 mOsmo 03/06/2015 Free T4 Zge784 FREE T4 1.02 ng/dL 03/06/2015 Review of [...] Procedure Codes Date THER/PROPH/DIAG INJ SC/IM CPT-4: 73213 08/03/2017 TRIAMCINOLONE ACET INJ NOS CPT-4: J3301 08/03/2017 ROCEPHIN, PER 250 MG CPT-4: J0696 08/03/2017 TRIAMCINOLONE ACET INJ NOS CPT-4: J3301 04/08/2017 ADMIN INFLUENZA VIRUS VAC CPT-4: G0008 04/01/2017 FLU VACC PRSV FREE INC ANTIG CPT-4: 76881 04/01/2017 TRIAMCINOLONE ACET INJ NOS CPT-4: J3301 05/19/2016 THER/PROPH/DIAG INJ SC/IM CPT-4: 18214 05/12/2016 TRIAMCINOLONE ACET INJ NOS CPT-4: J3301 05/12/2016 ADMIN PNEUMOCOCCAL VACCINE SNOMED CT: 10855932 CPT-4: G0009 05/05/2016 Pneumococcal Polysaccharide Vaccine, 23-Valent, Ad Formatting Model/CDA Sections, Assigned to/Otilia Ramires CPT-4: 10023Zieyjxv 05/05/2016 ADMIN INFLUENZA VIRUS VAC CPT-4: G0008 04/24/2016 FLU VACC 4 YA 3 YRS PLUS IM SNOMED CT: 49155032 CPT-4: 33064 04/24/2016 Vital Signs Date Vital 03/03/2018 Blood Pressure 1: 122/64 Code : 8480-6 BMI: 24.4 Code : 57827-8 Heart Rate 1 : 73 bpm Height: 6' SpO2: 99% Weight: 180 lbs 01/10/2018 Blood Pressure 1: 140/72 Code : 8480-6 BMI: 24.5 Code : 44370-1 Heart Rate 1 : 95 bpm Height: 6' SpO2: 94% Weight: 181 lbs 12/16/2017 Blood Pressure 1: 132/64 Code : 8480-6 BMI: 24.5 Code : 81789-0 Heart Rate 1 : 77 bpm Height: 6' SpO2: 98% Weight: 181 lbs 10/13/2017 Blood Pressure 1: 148/66 Code : 8480-6 BMI: 26.9 Code : 55118-7 Heart Rate 1 : 67 bpm Height: 6' SpO2: 98% Weight: 198 lbs 10/04/2017 Blood Pressure 1: 13664 Code : 8480-6 BMI: 27.0 Code : 14031-0 Heart Rate 1 : 76 bpm Height: 6' SpO2: 100% Weight: 199 lbs 09/01/2017 Blood Pressure 1: 148/84 Code : 8480-6 BMI: 25.9 Code : 05540-3 Heart Rate 1 : 81 bpm Height: 6' Respiratory Rate: 20 bpm SpO2: 99% Weight: 191 lbs 08/18/2017 Blood Pressure 1: 122 Code : 8480-6 BMI: 26.3 Code : 24294-5 Heart Rate 1 : 85 bpm Height: 6' SpO2: 95% Temperature: 36.6 (C) / 97.8 (F) Weight: 194 lbs 08/03/2017 Blood Pressure 1: 126/64 Code : 8480-6 BMI: 27.0 Code : 08048-1 Heart Rate 1 : 92 bpm Height: 6' SpO2: 94% Temperature: 37.4 (C) / 99.3 (F) Weight: 199 lbs 07/05/2017 Blood Pressure 1: 134/66 Code : 8480-6 BMI: 27.1 Code : 45307-3 Heart Rate 1 : 72 bpm Height: 6' SpO2: 96% Weight: 200 lbs 04/23/2017 Blood Pressure 1: 130/72 Code : 8480-6 BMI: 25.9 Code : 84055-5 Heart Rate 1 : 56 bpm Height: 6' SpO2: 97% Weight: 191 lbs 04/08/2017 Blood Pressure 1: 116/64 Code : 8480-6 BMI: 25.9 Code : 97086-5 Heart Rate 1 : 71 bpm Height: 6' SpO2: 97% Weight: 191 lbs 01/21/2017 Blood Pressure 1: 132/74 Code : 8480-6 BMI: 26.0 Code : 68306-0 Heart Rate 1 : 54 bpm Height: 6' SpO2: 94% Weight: 192 lbs 10/19/2016 Blood Pressure 1: 132/64 Code : 8480-6 BMI: 27.7 Code : 86078-7 Heart Rate 1 : 77 bpm Height: 6' SpO2: 98% Weight: 204 lbs 07/23/2016 Blood Pressure 1: 130/62 Code : 8480-6 BMI: 27.8 Code : 71027-4 Heart Rate 1 : 95 bpm Height: 6' SpO2: 97% Weight: 205 lbs 05/19/2016 Blood Pressure 1: 118/70 Code : 8480-6 BMI: 27.9 Code : 53793-9 Heart Rate 1 : 76 bpm Height: 6' SpO2: 97% Weight: 206 lbs 04/21/2016 Blood Pressure 1: 130/70 Code : 8480-6 BMI: 27.9 Code : 09798-0 Heart Rate 1 : 76 bpm Height: 6' SpO2: 96% Weight: 206 lbs 03/26/2016 Blood Pressure 1: 130/78 Code : 8480-6 BMI: 27.7 Code : 14388-3 Heart Rate 1 : 61 bpm Height: 6' SpO2: 98% Weight: 204 lbs 01/27/2016 Blood Pressure 1: 124/80 Code : 8480-6 BMI: 27.5 Code : 99784-3 Heart Rate 1 : 78 bpm Height: 6' SpO2: 96% Weight: 203 lbs 10/28/2015 Blood Pressure 1: 138/78 Code : 8480-6 BMI: 27.7 Code : 34775-4 Heart Rate 1 : 76 bpm Height: 6' SpO2: 98% Weight: 204 lbs 08/27/2015 Blood Pressure 1: 128/56 Code : 8480-6 BMI: 27.4 Code : 97923-7 Heart Rate 1 : 49 bpm Height: 6' SpO2: 98% Weight: 202 lbs 06/06/2015 Blood Pressure 1: 128/62 Code : 8480-6 BMI: 26.0 Code : 72011-6 Heart Rate 1 : 80 bpm Height: 6' SpO2: 98% Weight: 192 lbs 04/30/2015 Blood Pressure 1: 138/64 Code : 8480-6 BMI: 19.2 Code : 15679-4 Heart Rate 1 : 71 bpm Height: 6' SpO2: 94% Weight: 141 lbs 8 oz 04/23/2015 Blood Pressure 1: 128/64 Code : 8480-6 BMI: 25.6 Code : 91417-9 Heart Rate 1 : 66 bpm Height: 6' SpO2: 98% Weight: 189 lbs 03/04/2015 Blood Pressure 1: 132/50 Code : 8480-6 BMI: 25.8 Code : 23989-4 Heart Rate 1 : 63 bpm Height: 6' SpO2: 97% Weight: 190 lbs 12/04/2014 Blood Pressure 1: 112/68 Code : 8480-6 BMI: 26.9 Code : 11121-8 Heart Rate 1 : 68 bpm Height: [...] Encounters Encounter Performer Location Codes Date () 44304 EST. PATIENT, LEVEL IV Diagnosis: Pain in thoracic spine[ICD10: M54.6] Diagnosis: Low back pain[ICD10: M54.5] Diagnosis: Mild cognitive impairment, so stated[ICD10: G31.84] [facility] CPT-4: 59546 03/03/2018 51078 EST. PATIENT, LEVEL IV Diagnosis: Essential (primary) hypertension[ICD10: I10] Diagnosis: Type 2 diabetes mellitus without complications[ICD10: E11.9] Diagnosis: Hypothyroidism, unspecified[ICD10: E03.9] Diagnosis: Mixed hyperlipidemia[ICD10: E78.2] Diagnosis: Other allergic rhinitis[ICD10: J30.89] [facility] CPT-4: 90058 01/10/2018 70217 EST. PATIENT, LEVEL II Diagnosis: Laceration without foreign body of left forearm, initial encounter[ ICD10: S51.812A] Shalini Iyer MD, [facility] CPT-4: 50865 12/16/2017 ([id number]) 19858 EST. PATIENT, LEVEL I Diagnosis: Laceration without foreign body of left hand, initial encounter[ICD10 : S61.412A] Ayana Iyer MD, [facility] CPT-4: 46441 02279 EST. PATIENT, LEVEL III Diagnosis: Dizziness and giddiness[ICD10: R42] Diagnosis: Syncope and collapse[ICD10: R55] Diagnosis: Other allergic rhinitis[ICD10: J30.89] Zenobia Iyer MD, [facility] CPT-4: 37659 10/13/2017 ([id number]) 72682 EST. PATIENT, LEVEL IV Diagnosis: Type 2 diabetes mellitus without complications[ICD10: E11.9] Diagnosis: Essential (primary) hypertension[ICD10: I10] Diagnosis: Mixed hyperlipidemia[ICD10: E78.2] Diagnosis: Hypothyroidism, unspecified[ICD10: E03.9] Shalini Iyer MD, [facility] CPT-4: 12477 10/04/2017 ([id number]) 94168 EST. PATIENT, LEVEL III Diagnosis: Essential (primary) hypertension[ICD10: I10] Diagnosis: Type 2 diabetes mellitus without complications[ICD10: E11.9] Diagnosis: Cough[ICD10: R05] Ayana Iyer MD, [facility] CPT-4: 18540 09/01/2017 89043 EST. PATIENT, LEVEL IV Diagnosis: Cough[ICD10: R05] Diagnosis: Acute bronchitis due to other specified organisms[ICD10: J20.8] Zenobia Iyer MD, [facility] CPT-4: 92869 08/18/2017 ([id number]) 53969 EST. PATIENT, LEVEL III Diagnosis: Cough[ICD10: R05] Diagnosis: Acute bronchitis due to other specified organisms[ICD10: J20.8] Ayana Iyer MD, [facility] CPT-4: 81195 08/03/2017 ([id number]) 54382 EST. PATIENT, LEVEL III Diagnosis: Essential (primary) hypertension[ICD10: I10] Shalini Iyer MD, [facility] CPT-4: 28640 07/05/2017 ([id number]) 72318 EST. PATIENT, LEVEL IV Diagnosis: Essential (primary) hypertension[ICD10: I10] Diagnosis: Type 2 diabetes mellitus without complications[ICD10: E11.9] Diagnosis: Hypothyroidism, unspecified[ICD10: E03.9] Shalini Iyer MD, [facility] CPT-4: 69031 04/23/2017 ([id number]) 91004 EST. PATIENT, LEVEL III Diagnosis: Other allergic rhinitis[ICD10: J30.89] Shalini Iyer MD, [facility] CPT-4: 19049 04/08/2017 ([id number]) 35219 EST. PATIENT, LEVEL IV Diagnosis: Type 2 diabetes mellitus without complications[ICD10: E11.9] Diagnosis: Essential (primary) hypertension[ICD10: I10] Diagnosis: Hypothyroidism, unspecified[ICD10: E03.9] Diagnosis: Allergic rhinitis due to pollen[ICD10: J30.1] Shalini Iyer MD, [facility] CPT-4: 35950 01/21/2017 ([id number]) 69805 EST. PATIENT, LEVEL IV Diagnosis: Essential (primary) hypertension[ICD10: I10] Diagnosis: Mixed hyperlipidemia[ICD10: E78.2] Diagnosis: Hypothyroidism, unspecified[ICD10: E03.9] Diagnosis: Pain in left knee[ICD10: M25.562] Diagnosis: Type 2 diabetes mellitus without complications[ICD10: E11.9] Shalini Iyer MD, [facility] CPT-4: 08803 10/19/2016 ([id number]) 80235 EST. PATIENT, LEVEL IV Diagnosis: Essential (primary) hypertension[ICD10: I10] Diagnosis: Type 2 diabetes mellitus without complications[ICD10: E11.9] Diagnosis: Hypothyroidism, unspecified[ICD10: E03.9] Diagnosis: Mixed hyperlipidemia[ICD10: E78.2] Shalini Iyer MD, [facility] CPT-4: 76423 07/23/2016 ([id number]) 72651 EST. PATIENT, LEVEL III Diagnosis: Acute recurrent maxillary sinusitis[ICD10: J01.01] Shalini Iyer MD, [facility] CPT-4: 36219 05/19/2016 ([id number]) 28840 EST. PATIENT, LEVEL III Diagnosis: Type 2 diabetes mellitus without complications[ICD10: E11.9] Diagnosis: Essential (primary) hypertension[ICD10: I10] Diagnosis: Allergic rhinitis due to pollen[ICD10: J30.1] Shalini Iyer MD, [facility] CPT-4: 16167 04/21/2016 ([id number]) 71296 EST. PATIENT, LEVEL III Diagnosis: Pain in left knee[ICD10: M25.562] Diagnosis: Localized edema[ICD10: R60.0] Shalini Iyer MD, [facility] CPT-4: 53863 03/26/2016 ([id number]) 70855 EST. PATIENT, LEVEL IV Diagnosis: Essential (primary) hypertension[ICD10: I10] Diagnosis: Type 2 diabetes mellitus without complications[ICD10: E11.9] Diagnosis: Pain in right shoulder[ICD10: M25.511] Shalini Iyer MD, [facility] CPT-4: 40661 01/27/2016 ([id number]) 45555 EST. PATIENT, LEVEL IV Diagnosis: Essential (primary) hypertension[ICD10: I10] Diagnosis: Allergic rhinitis due to pollen[ICD10: J30.1] Diagnosis: Type 2 diabetes mellitus without complications[ICD10: E11.9] Diagnosis: Hypothyroidism, unspecified[ICD10: E03.9] Shalini Iyer MD [facility] CPT-4: 93723 10/28/2015 ([id number]) 53924 EST. PATIENT, LEVEL IV Diagnosis: Essential (primary) hypertension[ICD10: I10] Diagnosis: Type 2 diabetes mellitus without complications[ICD10: E11.9] Diagnosis: Hypothyroidism, unspecified[ICD10: E03.9] Diagnosis: Lichen planus, unspecified[ICD10: L43.9] Shalini Iyer MD, [facility] CPT-4: 79520 08/27/2015 ([id number]) 27418 EST. PATIENT, LEVEL III Diagnosis: Cervical disc disorder with radiculopathy, unspecified cervical region[ICD10: M50.10] Diagnosis: Type 2 diabetes mellitus without complications[ICD10: E11.9] Diagnosis: Essential (primary) hypertension[ICD10: I10] Shalini Iyer MD, [facility] CPT-4: 61225 06/06/2015 ([id number]) 89348 EST. PATIENT, LEVEL III Diagnosis: Cervicalgia[ICD10: M54.2] Shalini Iyer MD, [facility] CPT-4: 89673 04/30/2015 ([id number]) 17850 EST. PATIENT, LEVEL III Diagnosis: Essential (primary) hypertension[ICD10: I10] Diagnosis: Type 2 diabetes mellitus without complications[ICD10: E11.9] Diagnosis: Primary osteoarthritis, unspecified site[ICD10: M19.91] Shalini Iyer MD, [facility] CPT-4: 42114 04/23/2015 ([id number]) 22695 EST. PATIENT, LEVEL IV Diagnosis: ESSENTIAL HYPERTENSION[ICD9: 401.9] Diagnosis: DIABETES TYPE II[ICD9: 250.00] Diagnosis: Osteoarthritis[ICD9: 715.90] Shalini Iyer MD, [facility] CPT-4: 30945 03/04/2015 ([id number]) OFFICE VISIT, NEW - LEVEL 4 Diagnosis: ESSENTIAL HYPERTENSION[ICD9: 401.9] Diagnosis: Hypothyroidism[ICD9: 244.9] Diagnosis: DIABETES TYPE II[ICD9: 250.00] Diagnosis: ACTINIC KERATOSIS[ICD9: 702.0] Shalini Iyer MD, [facility] CPT-4: 32095 12/04/2014 Plan of Care Planned Activity Notes [...] office visit after review of testing. 03/03/2018 Patient Education: Patient Medication Summary Completed [...] allergy spray. 01/10/2018 Appointment: Shalini Mitchell WPtel: [phone] [phone] (15 min) Moderate 01/10/2018 Patient Education: Patient Medication Summary Completed 01/10/2018 Visit Plan: Wound Instructions - Pt was instructed to keep the wound clean, wash with antibacterial soap, use triple antibiotic ointment, call if redness, pustular drainage, or any other acute concerns. 12/16/2017 Appointment: [facility] [phone] [facility] [place] [phone] (10 min) Simple 12/16/2017 Patient Education: Patient [...] concerns. 10/13/2017 Appointment: Zenobia Desouza WPtel: [phone] [facility] [place] [address] (30 min) Complex 10/13/2017 Patient Education: Patient Medication Summary Completed 10/13/2017 Appointment: Shalini Mitchell WPtel: [phone] [facility] [place] [phone] (30 min) Complex 10/05/2017 Visit Plan: Diabetes [...] to medications. 10/04/2017 Appointment: Shalini Mitchell WPtel: [facility] [place] [phone] (30 min) Complex 10/04/2017 Patient Education: Patient Medication Summary Completed [...] antibiotics. 09/01/2017 [phone] [place] (15 min) Moderate 09/01/2017 Patient Education: Patient Medication Summary Completed 09/01/2017 Visit Plan: Bronchitis - acute case of bronchitis identified. Pt has been given antibiotics, steroids as appropriate, and pt has been instructed to call if symptoms are not improved, or if symptoms acutely worsen. 08/18/2017 Appointment: Zenobia Desouza WPtel: [facility]5 [facility]66[facility] (15 min) Moderate 08/18/2017 Patient Education: Patient Medication Summary Completed 08/18/2017 Visit Plan: Bronchitis - acute case of bronchitis identified. Pt has been given antibiotics, breathing treatments as appropriate, and pt has been instructed to call if symptoms are not improved, or if symptoms acutely worsen. 08/03/2017 Appointment: Ayana Iyer WPtel: [facility]5 [facility]66[facility] (15 min) Moderate 08/03/2017 Patient Education: Patient Medication Summary Completed 08/03/2017 Visit Plan: Hypertension - well controlled - continue with current medications, continue with no added salt diet. Pt has been encouraged to exercise daily. The pt has been advised to call the office if there are any acute concerns about change in blood pressure readings at home. 07/05/2017 Appointment: Shalini Mitchell WPtel: [facility]5 [phone] (30 min) Complex 07/05/2017 Patient Education: Patient Medication Summary Completed 07/05/2017 Patient Education: Patient Medication Summary Completed 04/30/2017 Care Plan: %Hba1C [facility] : 59360-3 Pending 04/30/2017 Visit Plan: Hypertension - well [...] of control. 04/23/2017 Appointment: Shalini Mitchell WPtel: [phone] [phone] (30 min) Complex 04/23/2017 Patient Education: Patient [...] allergy spray. 04/08/2017 Appointment: Shalini Mitchell WPtel: [phone] [phone] (15 min) Moderate 04/08/2017 Patient Education: Patient [...] allergy spray. 01/21/2017 Appointment: Shalini Mitchell WPtel: [facility]6 [phone] (15 min) Moderate 01/21/2017 Patient Education: Patient Medication Summary Completed 01/21/2017 Appointment: Shalini Mitchell WPtel: [phone] [phone] (15 min) Moderate 01/18/2017 Visit Plan: Hypertension [...] symptoms persist 10/19/2016 Appointment: Shalini Mitchell WPtel: [address] [place] [phone] (30 min) [facility] 10/19/2016 Patient Education: Patient Medication Summary Completed [...] to medications. 07/23/2016 Appointment: Shalini Mitchell WPtel: [phone] (30 min) Complex 07/23/2016 Patient Education: Patient Medication Summary Completed 07/23/2016 Visit Plan: Sinusitis - Pt has acute infection - pain in face, maxillary region, Pt informed to use decongestant, RX given to patient, sinus rinses also recommended. Call if symptoms do not show improvement. Kenalog injection today in the office. 05/19/2016 Appointment: Shalini Mitchell WPtel: [facility]5 [facility] [place] [address] (15 min) Moderate 05/19/2016 Patient Education: Patient Medication Summary Completed 05/19/2016 Appointment: Injection 05/12/2016 Patient Education: Patient Medication Summary Completed 05/12/2016 Appointment: Injection 05/05/2016 Patient Education: Patient Medication Summary Completed 05/05/2016 Appointment: Shalini Mitchell WPtel: [phone] [phone] (30 min) Complex 05/01/2016 Appointment: Injection 04/24/2016 [...] the nasal steroid allergy spray. 04/21/2016 Appointment: Shlaini Mitchell WPtel: [facility] (30 min) Complex 04/21/2016 Patient Education: Patient [...] peripheral edema. 03/26/2016 Appointment: Shalini Mitchell WPtel: [facility] [place] [address] (15 min) Moderate 03/26/2016 Patient Education: Patient [...] Right shoulder pain-refer for PT at [facility] 01/27/2016 Appointment: (30 min) Complex 01/27/2016 Patient [...] based on previous levels of control. Lichen xkevkj-pkexl-xq custodial doxycycline per Dr Eduardo centeno-check labs- continue [...] based on previous levels of control. 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 COLÓN [...] symptoms persist FASTING LABS ON WEDNESDAY AT [employer]AP[employer]WORK CONCERNING FITTED SHOES FROM DR. 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 Lichen cbspen-gufte-xn long term care administrator doxycycline per Dr Eduardo centeno-check labs-continue clobetasol [...] based on previous levels of control. Lichen spzzyn-ukgwv-cj long term care administrator doxycycline per Dr Eduardo centeno-check labs-continue clobetasol [...]
--- OUTSIDE RECORDS SUMMARY | 2018-04-26 11:53 | XMS REPORT | CCD ---
Author Author Shalini Mitchell MD, [facility] Address [address] [place] [address] Phone Care Team Providers Care Pediatric Neurologist Name Role Phone PP Unavailable CCM Unavailable Summary Purpose Interface Exchange Insurance Providers Payer name Policy type / Coverage type Covered constitution party ID Effective Begin Date Effective End Date WPS Medicare Part B Medicare Part B [id number] Unknown Unknown [facility] Medicare Part B [id number] Unknown Unknown Family History Family History data not found Social History Social History Element Codes Description Effective Dates Marital status Unknown 12/04/2014 Number of children Unknown 3 12/04/2014 Employment Unknown Retired [employer] 12/04/[address]: 8500621 Quit over 10 years ago 12/04/[address]: 199852445 Never drinks alcohol 12/04/2014 Allergies, Adverse Reactions, Alerts Allergies, Adverse Reactions, Alerts data not found Past Medical History Illness Codes Condition Status Onset Date Resolved Date Acute bronchitis due to other specified organisms ICD-9: 466.0 ICD-10: J20.8 Active 08/03/2017 Unknown Cough ICD-9: 786.2 ICD-10: R05 Active 08/03/2017 Unknown Essential (primary) hypertension ICD-9: 401.1 ICD-10: I10 Active 10/19/2016 Unknown Type 2 diabetes mellitus without complications ICD-9: 250.00 ICD-10: E11.9 Active 07/22/2016 Unknown Hypothyroidism, unspecified ICD-9: 244.9 ICD-10: E03.9 Active 07/22/2016 Unknown Other allergic rhinitis ICD-9: 477.8 ICD-10: J30.89 Active 04/08/2017 Unknown Allergic rhinitis due to pollen ICD-9: 477.9 ICD-10: J30.1 Active 04/01/2017 Unknown Encounter for immunization ICD-9: V06.6 ICD-10: Z23 Active 04/01/2017 Unknown Allergic rhinitis due to pollen ICD-9: 477.0 ICD-10: J30.1 Active 05/11/2016 Unknown Mixed hyperlipidemia ICD-9: 272.2 ICD-10: E78.2 Active 07/22/2016 Unknown Pain in left knee ICD- 9: [...] Problems Condition Codes Effective Dates Condition Status Acute bronchitis due to other specified organisms ICD-9: 466.0 ICD-10: J20.8 08/03/2017 Active Cough ICD-9: 786.2 ICD-10: R05 08/03/2017 Active Essential (primary) hypertension ICD-9: 401.1 ICD-10: I10 10/19/2016 Active Type 2 diabetes mellitus without complications ICD-9: 250.00 ICD-10: E11.9 07/22/2016 Active Hypothyroidism, unspecified ICD-9: 244.9 ICD-10: E03.9 07/22/2016 Active Other allergic rhinitis ICD-9: 477.8 ICD-10: J30.89 04/08/2017 Active Allergic rhinitis due to pollen ICD-9: 477.9 ICD-10: J30.1 04/01/2017 Active Encounter for immunization ICD-9: V06.6 ICD-10: Z23 04/01/2017 Active Allergic rhinitis due to pollen ICD-9: 477.0 ICD-10: J30.1 05/11/2016 Active Mixed hyperlipidemia ICD-9: 272.2 ICD-10: E78.2 07/22/2016 Active Pain in left knee ICD- 9: [...] Start Date Stop Date Status Fill Instructions ceftriaxone 500 mg solution for injection RxNorm: 7294894 Inj 08/03/2017 08/03/2017 Inactive cephalexin 500 mg capsule RxNorm: 788058 1 Capsule(s) PO QID 08/09/2017 Active Kenalog 40 mg/mL suspension for injection RxNorm: 9572519 1 Milliliter(s) Inj 08/03/2017 08/03/2017 Inactive losartan 50 mg tablet RxNorm: 863076 TAKE ONE TABLET BY MOUTH ONCE DAILY IN THE MORNING 08/02/2017 No Stop Date Active simvastatin 10 mg tablet RxNorm: 013696 TAKE ONE TABLET BY MOUTH ONCE DAILY 08/02/2017 No Stop Date Active levothyroxine 137 mcg tablet RxNorm: 033244 TAKE ONE TABLET BY MOUTH ONCE DAILY 07/26/2017 No Stop Date Active Flonase Allergy Relief 50 mcg/actuation nasal spray, suspension RxNorm: 6379389 USE TWO SPRAY(S) IN EACH NOSTRIL ONCE DAILY 06/28/2017 No Stop Date Active baclofen 10 mg tablet RxNorm: 918747 TAKE ONE TABLET BY MOUTH THREE TIMES DAILY NEEDED FOR MUSCLE SPASM 06/28/2017 No Stop Date Active Kenalog 40 mg/mL suspension for injection RxNorm: 7257689 1 Milliliter(s) Inj 04/08/2017 04/08/2017 Inactive doxycycline hyclate 100 mg tablet RxNorm: 616909 1 Tablet(s) PO BID 04/01/2017 04/10/2017 Inactive PLEASE GIVE 90 DAY SUPPLY losartan 50 mg tablet RxNorm: 811492 TAKE ONE TABLET BY MOUTH ONCE DAILY IN THE MORNING 02/01/2017 07/30/2017 Inactive levothyroxine 137 mcg tablet RxNorm: 847349 1 Tablet(s) PO daily 01/22/2017 07/20/2017 Inactive hold until he calls for fill- using samples from office metoprolol succinate ER 25 mg tablet,extended release 24 hr RxNorm: 120467 1 Tablet(s) PO daily 01/11/2017 01/05/2018 Active tamsulosin 0.4 mg capsule RxNorm: 877204 TAKE ONE CAPSULE BY MOUTH ONCE DAILY 01/11/2017 10/07/2017 Active simvastatin 10 mg tablet RxNorm: 038261 TAKE ONE TABLET BY MOUTH ONCE DAILY 12/17/2016 06/14/2017 Inactive levothyroxine 150 mcg tablet RxNorm: 408448 1 Tablet(s) PO daily 09/24/2016 01/21/2017 Inactive doxycycline hyclate 100 mg tablet RxNorm: 127926 1 Tablet(s) PO daily 07/30/2016 01/25/2017 Inactive PLEASE GIVE 90 DAY SUPPLY doxycycline hyclate 100 mg tablet RxNorm: 841963 1 Tablet(s) PO daily 07/27/2016 07/29/2016 Inactive PLEASE GIVE 90 DAY SUPPLY quinine 324 mg capsule RxNorm: 428842 1 Capsule(s) PO HS PRN No Stop Date Active LEG CRAMPS doxycycline hyclate 100 mg tablet RxNorm: 034965 1 Tablet(s) PO daily 05/29/2016 07/26/2016 Inactive PLEASE GIVE 90 DAY SUPPLY Kenalog 40 mg/mL suspension for injection RxNorm: 6626725 Milliliter(s) Inj 05/19/2016 05/19/2016 Inactive Levaquin 500 mg tablet RxNorm: 359247 1 Tablet(s) PO daily 07/201505/25/2016 Inactive Zithromax Z-Anil 250 mg tablet RxNorm: 400616 1 Tablet(s) PO UD 05/14/2016 09/09/2016 Inactive zpack Kenalog 40 mg/mL suspension for injection RxNorm: 3782599 Milliliter(s) Inj 05/12/2016 05/12/2016 Inactive Zithromax Z-Anil 250 mg tablet RxNorm: 825605 1 Tablet(s) PO UD 05/08/2016 05/12/2016 Inactive [email or web address] Flonase Allergy Relief 50 mcg/actuation nasal spray, suspension RxNorm: 9420029 2 [place] NASAL daily 04/21/20162016 Inactive levothyroxine 150 mcg tablet RxNorm: 264234 1 Tablet(s) PO daily 04/21/2016 09/23/2016 Inactive baclofen 10 mg tablet RxNorm: 649884 1 Tablet(s) PO TID as needed for muscle spasms 04/10/2016 11/05/2016 Inactive Flonase Allergy Relief 50 mcg/actuation nasal spray, suspension RxNorm: 9756062 2 [place] NASAL daily 01/27/20162015 Inactive losartan 50 mg tablet RxNorm: 794512 1 Tablet(s) PO QAM 201501/09/2017 Inactive magnesium oxide 400 mg tablet RxNorm: 027988 1 Tablet(s) PO daily 01/16/2016 01/09/2017 Inactive omega 7-vpg-arz-fish oil 300 mg-1,000 mg capsule,delayed release RxNorm: 1 Capsule(s) PO daily 01/16/2016 01/09/2017 Inactive ask pt if this is needed- he may use OTC levothyroxine 175 mcg tablet RxNorm: 338536 1 Tablet(s) PO daily 01/16/2016 04/20/2016 Inactive metoprolol succinate ER 25 mg tablet,extended release 24 hr RxNorm: 730184 1 Tablet(s) PO daily 01/16/2016 01/09/2017 Inactive baclofen 10 mg tablet RxNorm: 199124 1 Tablet(s) PO TID as needed for muscle spasms 01/16/2016 04/09/2016 Inactive omega 1-mjr-jtu-fish oil 300 mg-1,000 mg capsule,delayed release RxNorm: 1 Capsule(s) PO daily 01/16/2016 01/15/2016 Inactive ask pt if this is needed- he may use OTC simvastatin 10 mg tablet RxNorm: 552790 1 Tablet(s) PO daily 12/16/2016 Inactive tamsulosin 0.4 mg capsule RxNorm: 735459 TAKE ONE CAPSULE BY MOUTH ONCE DAILY 01/05/2016 01/10/2017 Inactive levothyroxine 150 mcg tablet RxNorm: 089541 1 Tablet(s) PO daily 12/05/2015 12/04/2015 Inactive levothyroxine 150 mcg tablet RxNorm: 569809 1 Tablet(s) PO daily 12/05/2015 01/15/2016 Inactive metoprolol succinate ER 25 mg tablet,extended release 24 hr RxNorm: 496569 1 Tablet(s) PO daily 10/22/2015 01/15/2016 Inactive losartan 50 mg tablet RxNorm: 082423 1 Tablet(s) PO QAM 201501/15/2016 Inactive levothyroxine 175 mcg tablet RxNorm: 468071 1 Tablet(s) PO daily 09/09/2015 12/04/2015 Inactive doxycycline hyclate 100 mg tablet RxNorm: 134052 1 Tablet(s) PO daily 08/27/2015 01/15/2016 Inactive PLEASE GIVE 90 DAY SUPPLY doxycycline hyclate 100 mg tablet RxNorm: 953235 1 Tablet(s) PO daily 08/27/2015 08/26/2015 Inactive chlorzoxazone 500 mg tablet RxNorm: 362819 1 Tablet(s) PO Q6 as needed muscle spasms 08/15/2015 03/11/2016 Inactive chlorzoxazone 500 mg tablet RxNorm: 322554 1 Tablet(s) PO Q6 as needed muscle spasms 08/15/2015 08/14/2015 Inactive ketoconazole 2 % shampoo RxNorm: 267246 1 Application TOP UD 08/04/2015 Inactive ketoconazole 2 % shampoo RxNorm: 739578 1 Application TOP UD 01/15/2016 Inactive clobetasol 0.05 % topical solution RxNorm: 163983 1 Application TOP daily 08/01/2015 07/31/2015 Inactive clobetasol 0.05 % topical solution RxNorm: 115773 1 Application TOP daily 08/01/2015 01/15/2016 Inactive levothyroxine 175 mcg tablet RxNorm: 734366 1 Tablet(s) PO daily 07/22/2015 09/08/2015 Inactive doxycycline hyclate 100 mg tablet RxNorm: 231017 1 Tablet(s) PO daily 07/17/2015 08/15/2015 Inactive levothyroxine 175 mcg tablet RxNorm: 975393 Tablet(s) PO every other day 07/17/2015 07/21/2015 Inactive Zithromax Z-Anil 250 mg tablet RxNorm: 826083 1 Tablet(s) PO 05/07/2016 Inactive 1 dejan finasteride 5 mg tablet RxNorm: 017954 1 Tablet(s) PO daily 12/27/2015 Inactive simvastatin 10 mg tablet RxNorm: 539872 1 Tablet(s) PO daily 12/27/2015 Inactive clopidogrel 75 mg tablet RxNorm: 405738 1 Tablet(s) PO daily 01/15/2016 Inactive metoprolol succinate ER 25 mg tablet,extended release 24 hr RxNorm: 883904 1 Tablet(s) PO daily 07/01/2015 10/21/2015 Inactive levothyroxine 150 mcg tablet RxNorm: 999218 1 Tablet(s) PO daily 07/01/2015 07/21/2015 Inactive tamsulosin 0.4 mg capsule RxNorm: 695129 1 Capsule(s) PO daily 07/01/2015 12/27/2015 Inactive losartan 50 mg tablet RxNorm: 829197 1 Tablet(s) PO QAM 201410/17/2015 Inactive levothyroxine 150 mcg tablet RxNorm: 001820 1 Tablet(s) PO daily 07/01/2015 06/30/2015 Inactive Zithromax Z-Anil 250 mg tablet RxNorm: 742423 1 Tablet(s) PO 03/201507/09/2015 Inactive 1 dejan Januvia 100 mg tablet RxNorm: 388772 1/2 Tablet(s) PO BID 201405/22/2015 Inactive Januvia 50 mg tablet RxNorm: 870793 1 Tablet(s) PO BID 201404/22/2015 Inactive chlorzoxazone 500 mg tablet RxNorm: 363498 1 Tablet(s) PO Q6 as needed muscle spasms 01/21/2015 01/20/2015 Inactive baclofen 10 mg tablet RxNorm: 284382 1 Tablet(s) PO TID as needed for muscle spasms 01/21/2015 06/30/2015 Inactive chlorzoxazone 500 mg tablet RxNorm: 544080 1 Tablet(s) PO Q6 as needed muscle spasms 01/21/2015 03/03/2015 Inactive Vitamin D3 2,000 unit tablet RxNorm: 104122 Tablet(s) PO BID No Stop Date Active [SAVINGS FOR NON-COVERED DRUGS -- BIN:[id number], PCN: [id number], Group: XXXXX , ID# [id number], Questions: . THIS IS NOT INSURANCE.] Claritin 10 mg tablet RxNorm: 569991 1 Tablet(s) PO daily No Start Date Active aspirin 81 mg tablet RxNorm: 196897 Tablet(s) PO daily No Start Date Active Centrum Silver oral RxNorm: 95519 oral No Start Date Active Calcium Citrate + D 600 mg RxNorm: 630mg PO daily No Start Date Active sodium chloride oral RxNorm: oral No Start Date Active Vitamin C 500 mg chewable tablet RxNorm: 729087 1 Tablet(s) PO No Start Date Active Vitamin B12 Oral RxNorm: oral No Start Date Active Fish Oil (with DHA-EPA) capsule RxNorm: oral No Start Date 01/15/2016 Inactive clopidogrel 75 mg tablet RxNorm: 222083 1 Tablet(s) PO daily No Start Date 06/30/2015 Inactive metoprolol succinate ER 25 mg tablet,extended release 24 hr RxNorm: 344963 1 Tablet(s) PO daily No Start Date 2014 Inactive simvastatin 10 mg tablet RxNorm: 757530 1 Tablet(s) PO daily No Start Date 06/30/2015 Inactive Claritin 10 mg tablet RxNorm: 394092 1 Tablet(s) PO daily No Start Date 07/16/2015 Inactive levothyroxine 175 mcg tablet RxNorm: 917249 Tablet(s) PO every other day No Start Date 06/30/2015 Inactive Vitamin D3 2,000 unit tablet RxNorm: 911277 Tablet(s) PO daily No Start Date 12/03/2014 Inactive losartan 50 mg tablet RxNorm: 192790 1 Tablet(s) PO QAM No Start Date 06/30/2015 Inactive magnesium oxide 400 mg tablet RxNorm: 940130 1 Tablet(s) PO daily No Start Date 01/15/2016 Inactive baclofen 10 mg tablet RxNorm: 967986 1 Tablet(s) PO TID as needed for muscle spasms No Start Date 01/20/2015 Inactive finasteride 5 mg tablet RxNorm: 592279 1 Tablet(s) PO daily No Start Date 06/30/2015 Inactive quinine 324 mg capsule RxNorm: 768945 1 Capsule(s) PO HS PRN No Start Date 06/14/2016 Inactive LEG CRAMPS Vitamin D3 (with calcium carbonate) oral RxNorm: 635253 oral No Start Date 01/15/2016 Inactive Zithromax Z-Anil 250 mg tablet RxNorm: 059003 1 Tablet(s) PO No Start Date 06/25/2015 Inactive 1 zpack levothyroxine 150 mcg tablet RxNorm: 361144 Tablet(s) PO every other day No Start Date 06/30/2015 Inactive Januvia 50 mg tablet RxNorm: 810130 1 Tablet(s) PO daily No Start Date 03/06/2015 Inactive fluticasone 50 mcg/actuation nasal spray,suspension RxNorm: 229525 1 [place] NASAL daily No Start Date 01/15/2016 Inactive tamsulosin ER 0.4 mg capsule,extended release 24 hr RxNorm: 648840 1 Capsule(s) PO daily No Start Date 06/30/2015 Inactive Ellie 180 mg tablet RxNorm: 036366 1 Tablet(s) PO daily No Start Date 01/15/2016 Inactive Medication Administered Medication Codes Instructions Start Date Status ceftriaxone 500 mg solution for injection RxNorm: 9338802 08/03/2017 Active Kenalog 40 mg/mL suspension for injection RxNorm: 7124178 1Milliliter 08/03/2017 Active Kenalog 40 mg/mL suspension for injection RxNorm: 2986741 1Milliliter 04/08/2017 No longer Active Kenalog 40 mg/mL suspension for injection RxNorm: 0005474 Milliliter 05/19/2016 No longer Active Kenalog 40 mg/mL suspension for injection RxNorm: 8706236 Milliliter 05/12/2016 No longer Active Immunizations Vaccine Codes Date Status Influenza CVX: 141 04/01/2017 completed Pneumococcal (Adult) CVX: 33 05/05/2016 completed Influenza CVX: 141 04/24/2016 completed Influenza CVX: 141 04/17/2015 completed Pneumococcal CVX: 133 04/17/2015 completed Influenza CVX: 141 05/19/2014 completed Zoster CVX: 121 04/18/2006 completed Pneumococcal CVX: 33 06/18/2005 completed Assessments Condition Codes Effective Dates Cough ICD-10: R05 ICD-9: 786.2 08/03/2017 Acute bronchitis due to other specified organisms ICD-10: J20.8 ICD-9: 466.0 08/03/2017 Essential (primary) hypertension ICD-10: I10 ICD-9: 401.1 07/05/2017 Type 2 diabetes mellitus without complications ICD-10: E11.9 ICD-9: 250.00 04/30/2017 Hypothyroidism, unspecified ICD-10: E03.9 ICD-9: 244.9 04/23/2017 Other allergic rhinitis ICD-10: J30.89 ICD-9: 477.8 04/08/2017 Encounter for immunization ICD-10: Z23 ICD-9: V06.6 04/01/2017 Allergic rhinitis due to pollen ICD-10: J30.1 ICD-9: 477.0 01/21/2017 Pain in left knee ICD-10: M25.562 ICD-9: 719.46 10/19/2016 Mixed hyperlipidemia ICD-10: E78.2 ICD-9: 272.2 10/19/2016 Essential (primary) hypertension ICD-10: I10 ICD-9: [...] Visit Reason For Visit Effective Dates Notes cough 08/03/2017 diabetes mellitus 07/05/2017 diabetes mellitus [...] Observation Code Item Item Code Result Date %Hba1C Qzf931 % HbA1c 78214-7 6.5 % 04/28/2017 %Hba1C Fos131 Gluc Ave 140 mg/dL 04/28/2017 Lipid Ord30 [...] 29.5 pg 04/28/2017 Cbc With Differential Ord2 [place]% 14.0 % 04/28/2017 Cbc With Differential Ord2 [...] 1.07 K/ul 04/28/2017 Cbc With Differential Ord2 [place] ABS# 1.0 K/ul 04/28/2017 Cbc With Differential Ord2 Eos ABS# 0.2 K/ul 04/28/2017 Cbc With Differential Ord2 Baso ABS# 0.0 K/ul 04/28/2017 Free T4 Nao286 FREE T4 1.07 ng/dL 04/28/2017 Comp Metabolic Tge688 NA 140 mEq/L 04/28/2017 Comp Metabolic Pbw646 K 4.6 mEq/L 04/28/2017 Comp Metabolic Lwt207 CL 104 mEq/L 04/28/2017 Comp Metabolic Ffw187 CO2 27.0 mEq/L 04/28/2017 Comp Metabolic Jsf520 ANION GAP 14 04/28/2017 Comp Metabolic Zyu036 GLUCOSE 141 mg/dL 04/28/2017 Comp Metabolic Fba267 Creat 1.0 mg/dL 04/28/2017 Comp Metabolic Qdq825 eGFR 79 ml/min/1.73m2 04/28/2017 Comp Metabolic Arb268 BUN 26 mg/dL 04/28/2017 Comp Metabolic Nfh061 B/C Ratio 26.8 Ratio 04/28/2017 Comp Metabolic Pfx033 CALCIUM 9.4 mg/dL 04/28/2017 Comp Metabolic Msv935 ALK PHOS 66 U/L 04/28/2017 Comp Metabolic Mqj196 AST(SGOT) 21 U/L 04/28/2017 Comp Metabolic Nym465 ALT(SGPT) 20 U/L 04/28/2017 Comp Metabolic Lbf594 BILI T 1.3 mg/dL 04/28/2017 Comp Metabolic Bat436 ALBUMIN 4.1 g/dL 04/28/2017 Comp Metabolic Jfj423 TPRO 6.3 g/dL 04/28/2017 Comp Metabolic Csa601 GLOB 2.2 g/dL 04/28/2017 Comp Metabolic Sel962 A/G Ratio 1.9 Ratio 04/28/2017 Comp Metabolic Hhn000 Osmo 287 mOsmo 04/28/2017 %Hba1C Fcx579 % HbA1c 01655-3 6.6 % 01/22/2017 %Hba1C Nsz902 Gluc Ave 143 mg/dL 01/22/2017 Tsh Ord6 [...] 30.2 pg 01/22/2017 Cbc With Differential Ord2 [place]% 14.1 % 01/22/2017 Cbc With Differential Ord2 [...] 1.01 K/ul 01/22/2017 Cbc With Differential Ord2 [place] ABS# 0.9 K/ul 01/22/2017 Cbc With Differential Ord2 Eos ABS# 0.2 K/ul 01/22/2017 Cbc With Differential Ord2 Baso ABS# 0.1 K/ul 01/22/2017 Comp Metabolic Gff869 NA 140 mEq/L 01/22/2017 Comp Metabolic Fcl081 K 4.3 mEq/L 01/22/2017 Comp Metabolic Avj832 CL 104 mEq/L 01/22/2017 Comp Metabolic Ptg227 CO2 29.0 mEq/L 01/22/2017 Comp Metabolic Mnb776 ANION GAP 11 01/22/2017 Comp Metabolic Qtp290 GLUCOSE 146 mg/dL 01/22/2017 Comp Metabolic Tml579 Creat 0.8 mg/dL 01/22/2017 Comp Metabolic Txz073 eGFR 100 ml/min/1.73m2 01/22/2017 Comp Metabolic Vtm913 BUN 19 mg/dL 01/22/2017 Comp Metabolic Jat041 B/C Ratio 24.1 Ratio 01/22/2017 Comp Metabolic Yvc738 CALCIUM 9.2 mg/dL 01/22/2017 Comp Metabolic Gls902 ALK PHOS 60 U/L 01/22/2017 Comp Metabolic Sko064 AST(SGOT) 18 U/L 01/22/2017 Comp Metabolic Yoz457 ALT(SGPT) 17 U/L 01/22/2017 Comp Metabolic Gaw847 BILI T 0.6 mg/dL 01/22/2017 Comp Metabolic Pnl824 ALBUMIN 3.7 g/dL 01/22/2017 Comp Metabolic Voq124 TPRO 5.8 g/dL 01/22/2017 Comp Metabolic Hgq807 GLOB 2.1 g/dL 01/22/2017 Comp Metabolic Cru441 A/G Ratio 1.7 Ratio 01/22/2017 Comp Metabolic Emw356 Osmo 284 mOsmo 01/22/2017 Lipid Ord30 CHOL 126 mg/dL 01/22/2017 Lipid Ord30 HDL 43.0 mg/dl 01/22/2017 Lipid Ord30 TRIG 111 mg/dL 01/22/2017 Lipid Ord30 LDL 61 mg/dL 01/22/2017 Lipid Ord30 C/HDL 2.9 Ratio 01/22/2017 Free T4 Aad554 FREE T4 0.96 ng/dL 01/22/2017 Comp Metabolic Ebu987 NA 141 mEq/L 10/23/2016 Comp Metabolic Nuv060 K 4.3 mEq/L 10/23/2016 Comp Metabolic Srd618 CL 104 mEq/L 10/23/2016 Comp Metabolic Lkd434 CO2 29.0 mEq/L 10/23/2016 Comp Metabolic Dwu979 ANION GAP 12 10/23/2016 Comp Metabolic Vsi491 GLUCOSE 156 mg/dL 10/23/2016 Comp Metabolic Ttg828 Creat 0.9 mg/dL 10/23/2016 Comp Metabolic Sqa122 eGFR 85 ml/min/1.73m2 10/23/2016 Comp Metabolic Jbe208 BUN 19 mg/dL 10/23/2016 Comp Metabolic Pam415 B/C Ratio 20.9 Ratio 10/23/2016 Comp Metabolic Jid066 CALCIUM 9.2 mg/dL 10/23/2016 Comp Metabolic Usa849 ALK PHOS 72 U/L 10/23/2016 Comp Metabolic Zuc386 AST(SGOT) 21 U/L 10/23/2016 Comp Metabolic Uol202 ALT(SGPT) 19 U/L 10/23/2016 Comp Metabolic Nus594 BILI T 0.8 mg/dL 10/23/2016 Comp Metabolic Rzm738 ALBUMIN 3.8 g/dL 10/23/2016 Comp Metabolic Lcs640 TPRO 6.2 g/dL 10/23/2016 Comp Metabolic Epr156 GLOB 2.4 g/dL 10/23/2016 Comp Metabolic Xdt513 A/G Ratio 1.6 Ratio 10/23/2016 Comp Metabolic Hxw399 Osmo 287 mOsmo 10/23/2016 Cbc With Differential [...] 92.9 fl 10/23/2016 Cbc With Differential Ord2 [place]% 12.7 % 10/23/2016 Cbc With Differential Ord2 [...] 0.79 K/ul 10/23/2016 Cbc With Differential Ord2 [place] ABS# 0.7 K/ul 10/23/2016 Cbc With Differential Ord2 Eos ABS# 0.2 K/ul 10/23/2016 Cbc With Differential Ord2 Baso ABS# 0.0 K/ul 10/23/2016 Lipid Ord30 CHOL 134 mg/dL 10/23/2016 Lipid Ord30 HDL 42.0 mg/dl 10/23/2016 Lipid Ord30 TRIG 101 mg/dL 10/23/2016 Lipid Ord30 LDL 72 mg/dL 10/23/2016 Lipid Ord30 C/HDL 3.2 Ratio 10/23/2016 Free T4 Rnn555 FREE T4 0.99 ng/dL 10/23/2016 Tsh Ord6 hTSH II 0.70 uIU/mL 10/23/2016 %Hba1C Dqn923 % HbA1c 77223-6 7.0 % 10/23/2016 %Hba1C Rvl219 Gluc Ave 154 mg/dL 10/23/2016 Lipid Ord30 CHOL 136 mg/dL 07/24/2016 Lipid Ord30 HDL 52.0 mg/dl 07/24/2016 Lipid Ord30 TRIG 83 mg/dL 07/24/2016 Lipid Ord30 LDL 67 mg/dL 07/24/2016 Lipid Ord30 C/HDL 2.6 Ratio 07/24/2016 %Hba1C Xdp127 % HbA1c 52837-6 7.1 % 07/24/2016 %Hba1C Djy989 Gluc Ave 157 mg/dL 07/24/2016 Tsh Ord6 [...] 93.0 fl 07/24/2016 Cbc With Differential Ord2 [place]% 13.8 % 07/24/2016 Cbc With Differential Ord2 [...] 1.56 K/ul 07/24/2016 Cbc With Differential Ord2 [place] ABS# 1.0 K/ul 07/24/2016 Cbc With Differential Ord2 Eos ABS# 0.2 K/ul 07/24/2016 Cbc With Differential Ord2 Baso ABS# 0.0 K/ul 07/24/2016 Comp Metabolic Rxx172 NA 139 mEq/L 07/24/2016 Comp Metabolic Idk212 K 4.5 mEq/L 07/24/2016 Comp Metabolic Nvc163 CL 103 mEq/L 07/24/2016 Comp Metabolic Udq830 CO2 30.0 mEq/L 07/24/2016 Comp Metabolic Vss496 ANION GAP 11 07/24/2016 Comp Metabolic Hsw643 GLUCOSE 161 mg/dL 07/24/2016 Comp Metabolic Gak581 Creat 1.0 mg/dL 07/24/2016 Comp Metabolic Cxm867 eGFR 80 ml/min/1.73m2 07/24/2016 Comp Metabolic Mqz236 BUN 23 mg/dL 07/24/2016 Comp Metabolic Wbk002 B/C Ratio 24.0 Ratio 07/24/2016 Comp Metabolic Obr529 CALCIUM 9.4 mg/dL 07/24/2016 Comp Metabolic Mtc388 ALK PHOS 66 U/L 07/24/2016 Comp Metabolic Snl799 AST(SGOT) 18 U/L 07/24/2016 Comp Metabolic Phg137 ALT(SGPT) 22 U/L 07/24/2016 Comp Metabolic Ziv905 BILI T 1.1 mg/dL 07/24/2016 Comp Metabolic Zdq240 ALBUMIN 4.0 g/dL 07/24/2016 Comp Metabolic Hrk728 TPRO 6.4 g/dL 07/24/2016 Comp Metabolic Etp137 GLOB 2.4 g/dL 07/24/2016 Comp Metabolic Rnc175 A/G Ratio 1.6 Ratio 07/24/2016 Comp Metabolic Qex870 Osmo 285 mOsmo 07/24/2016 %Hba1C Iel571 % HbA1c 98394-2 7.0 % 03/11/2016 %Hba1C Dmo657 Gluc Ave 154 mg/dL 03/11/2016 Free T4 Mqs712 FREE T4 0.92 ng/dL 03/11/2016 Tsh Ord6 hTSH II 0.92 uIU/mL 03/11/2016 %Hba1C Hvr745 % HbA1c 65163-1 7.1 % 11/27/2015 %Hba1C Mcx745 Gluc Ave 157 mg/dL 11/27/2015 Free T4 Kvg198 FREE T4 0.95 ng/dL 11/27/2015 Cbc With [...] 20.3 % 11/27/2015 Cbc With Differential Ord2 [place]% 13.5 % 11/27/2015 Cbc With Differential Ord2 [...] 1.26 K/ul 11/27/2015 Cbc With Differential Ord2 [place] ABS# 0.8 K/ul 11/27/2015 Cbc With Differential Ord2 Eos ABS# 0.2 K/ul 11/27/2015 Cbc With Differential Ord2 Baso ABS# 0.1 K/ul 11/27/2015 Cbc With Differential Ord2 New Analyzer Notice Please note new ref ranges starting 07-31-2015 due to implemntation of new five part differential hematolgy analyzer. 11/27/2015 Tsh Ord6 hTSH II 0.35 uIU/mL 11/27/2015 Comp Metabolic Cdf096 NA 139 mEq/L 11/27/2015 Comp Metabolic Ebv630 K 4.4 mEq/L 11/27/2015 Comp Metabolic Ksx756 CL 105 mEq/L 11/27/2015 Comp Metabolic Znb480 CO2 28.0 mEq/L 11/27/2015 Comp Metabolic Xeb792 ANION GAP 10 11/27/2015 Comp Metabolic Oky069 GLUCOSE 139 mg/dL 11/27/2015 Comp Metabolic Cpl816 Creat 0.9 mg/dL 11/27/2015 Comp Metabolic Oth323 eGFR 89 ml/min/1.73m2 11/27/2015 Comp Metabolic Qbs332 BUN 15 mg/dL 11/27/2015 Comp Metabolic Fpf704 B/C Ratio 17.2 Ratio 11/27/2015 Comp Metabolic Zcd984 CALCIUM 8.8 mg/dL 11/27/2015 Comp Metabolic Hfk839 ALK PHOS 78 U/L 11/27/2015 Comp Metabolic Wyo430 AST(SGOT) 18 U/L 11/27/2015 Comp Metabolic Cmf342 ALT(SGPT) 16 U/L 11/27/2015 Comp Metabolic Jmw040 BILI T 0.9 mg/dL 11/27/2015 Comp Metabolic Dsn437 ALBUMIN 3.7 g/dL 11/27/2015 Comp Metabolic Oof707 TPRO 6.2 g/dL 11/27/2015 Comp Metabolic Jvx063 GLOB 2.5 g/dL 11/27/2015 Comp Metabolic Hqi085 A/G Ratio 1.5 Ratio 11/27/2015 Comp Metabolic Acv868 Osmo 281 mOsmo 11/27/2015 Lipid Ord30 CHOL 123 mg/dL 11/27/2015 Lipid Ord30 HDL 41.0 mg/dl 11/27/2015 Lipid Ord30 TRIG 130 mg/dL 11/27/2015 Lipid Ord30 LDL 56 mg/dL 11/27/2015 Lipid Ord30 C/HDL 3.0 Ratio 11/27/2015 Free T4 Ggk554 FREE T4 0.87 ng/dL 08/28/2015 Lipid Ord30 [...] 23.8 % 08/28/2015 Cbc With Differential Ord2 [place]% 12.7 % 08/28/2015 Cbc With Differential Ord2 [...] 1.53 K/ul 08/28/2015 Cbc With Differential Ord2 [place] ABS# 0.8 K/ul 08/28/2015 Cbc With Differential Ord2 Eos ABS# 0.3 K/ul 08/28/2015 Cbc With Differential Ord2 Baso ABS# 0.1 K/ul 08/28/2015 Cbc With Differential Ord2 New Analyzer Notice Please note new ref ranges starting 07-31-2015 due to implemntation of new five part differential hematolgy analyzer. 08/28/2015 %Hba1C Mop619 % HbA1c 76219-0 6.9 % 08/28/2015 %Hba1C Rir903 Gluc Ave 151 mg/dL 08/28/2015 Comp Metabolic O[place]683 NA 139 mEq/L 08/28/2015 Comp Metabolic Ozs317 K 4.5 mEq/L 08/28/2015 Comp Metabolic Guw327 CL 104 mEq/L 08/28/2015 Comp Metabolic Euk684 CO2 28.0 mEq/L 08/28/2015 Comp Metabolic Xdo045 ANION GAP 12 08/28/2015 Comp Metabolic Kmm710 GLUCOSE 146 mg/dL 08/28/2015 Comp Metabolic Soo025 Creat 1.0 mg/dL 08/28/2015 Comp Metabolic Mng368 eGFR 77 ml/min/1.73m2 08/28/2015 Comp Metabolic Qdh819 BUN 21 mg/dL 08/28/2015 Comp Metabolic Tgj334 B/C Ratio 21.2 Ratio 08/28/2015 Comp Metabolic Sjk056 CALCIUM 9.3 mg/dL 08/28/2015 Comp Metabolic Xdw328 ALK PHOS 70 U/L 08/28/2015 Comp Metabolic Bcz808 AST(SGOT) 18 U/L 08/28/2015 Comp Metabolic Nrl005 ALT(SGPT) 16 U/L 08/28/2015 Comp Metabolic Uzn991 BILI T 0.6 mg/dL 08/28/2015 Comp Metabolic Uea537 ALBUMIN 4.0 g/dL 08/28/2015 Comp Metabolic Wuj986 TPRO 6.4 g/dL 08/28/2015 Comp Metabolic Kyt005 GLOB 2.4 g/dL 08/28/2015 Comp Metabolic Tpg974 A/G Ratio 1.7 Ratio 08/28/2015 Comp Metabolic Guv599 Osmo 283 mOsmo 08/28/2015 Lipid Ord30 CHOL 137 mg/dL 03/06/2015 Lipid Ord30 HDL 48.0 mg/dl 03/06/2015 Lipid Ord30 TRIG 121 mg/dL 03/06/2015 Lipid Ord30 LDL 65 mg/dL 03/06/2015 Lipid Ord30 C/HDL 2.9 Ratio 03/06/2015 %Hba1C Fsz235 % HbA1c 98087-3 6.7 % 03/06/2015 %Hba1C Gpd749 Gluc Ave 146 mg/dL 03/06/2015 Tsh Ord6 [...] Ord2 RDW 14.5 % 03/06/2015 Comp Metabolic Chx479 NA 137 mEq/L 03/06/2015 Comp Metabolic Ehq702 K 4.2 mEq/L 03/06/2015 Comp Metabolic Bto397 CL 103 mEq/L 03/06/2015 Comp Metabolic Jtp227 CO2 30.0 mEq/L 03/06/2015 Comp Metabolic Sxy046 ANION GAP 8 03/06/2015 Comp Metabolic Gpp268 GLUCOSE 156 mg/dL 03/06/2015 Comp Metabolic Qxv138 Creat 1.0 mg/dL 03/06/2015 Comp Metabolic Kwh256 eGFR 75 ml/min/1.73m2 03/06/2015 Comp Metabolic Wpe025 BUN 17 mg/dL 03/06/2015 Comp Metabolic Pfw265 B/C Ratio 16.7 Ratio 03/06/2015 Comp Metabolic Ste394 CALCIUM 9.2 mg/dL 03/06/2015 Comp Metabolic Lqs057 ALK PHOS 75 U/L 03/06/2015 Comp Metabolic Cbz738 AST(SGOT) 17 U/L 03/06/2015 Comp Metabolic Yej593 ALT(SGPT) 16 U/L 03/06/2015 Comp Metabolic Cpk737 BILI T 0.8 mg/dL 03/06/2015 Comp Metabolic Lwc696 ALBUMIN 4.0 g/dL 03/06/2015 Comp Metabolic Exy084 TPRO 6.3 g/dL 03/06/2015 Comp Metabolic Ukd244 GLOB 2.3 g/dL 03/06/2015 Comp Metabolic Gmk535 A/G Ratio 1.7 Ratio 03/06/2015 Comp Metabolic Pei414 Osmo 279 mOsmo 03/06/2015 Free T4 Hmb058 FREE T4 1.02 ng/dL 03/06/2015 Review of Systems System Result Effective Dates Constitutional recent illness 08/03/2017 Constitutional No night [...] nontender 07/23/2016 None Full Exam - General 1994 Ears/Nose/Throat lips/teeth/gingiva Overall: benign lips 07/23/2016 None Full Exam - General 1994 Ears/Nose/Throat lips/teeth/gingiva Overall: normal dentition 07/23/2016 None Full Exam - General 1994 Ears/Nose/Throat lips/teeth/gingiva Overall: benign gingiva 07/23/2016 None Full Exam - General 1994 Ears/Nose/Throat lips/teeth/gingiva Overall: no masses 07/23/2016 None Full Exam - General 1995 Ears/Nose/Throat oral cavity/pharynx/larynx Overall: oral mucosa clear 07/23/2016 None Full Exam - General 1995 Ears/Nose/Throat oral cavity/pharynx/larynx Overall: oropharyngeal mucosa clear 07/23/2016 None Full Exam - General 1995 Ears/Nose/Throat oral cavity/pharynx/larynx Overall: no masses 07/23/2016 [...] mastoids 08/27/2015 None Full Exam - General 1995 Ears/Nose/Throat otoscopic exam Overall: tympanic membranes clear 08/27/2015 None Full Exam - General 1994 Ears/Nose/Throat otoscopic exam External auditory canal: partial cerumen occlusion 08/27/2015 None Full Exam - General 1995 Ears/Nose/Throat otoscopic exam External auditory canal: nontender [...] Procedure Codes Date THER/PROPH/DIAG INJ SC/IM CPT-4: 43387 08/03/2017 TRIAMCINOLONE ACET INJ NOS CPT-4: J3301 08/03/2017 ROCEPHIN, PER 250 MG CPT-4: J0696 08/03/2017 TRIAMCINOLONE ACET INJ NOS CPT-4: J3301 04/08/2017 ADMIN INFLUENZA VIRUS VAC CPT-4: G0008 04/01/2017 FLU VACC PRSV FREE INC ANTIG CPT-4: 61939 04/01/2017 TRIAMCINOLONE ACET INJ NOS CPT-4: J3301 05/19/2016 THER/PROPH/DIAG INJ SC/IM CPT-4: 07157 05/12/2016 TRIAMCINOLONE ACET INJ NOS CPT-4: J3301 05/12/2016 ADMIN PNEUMOCOCCAL VACCINE SNOMED CT: 62114682 CPT-4: G0009 05/05/2016 Pneumococcal Polysaccharide Vaccine, 23-Valent, Ad Formatting Model/CDA Sections, Assigned to/Otilia Ramires CPT-4: 29169Sfxpizo 05/05/2016 ADMIN INFLUENZA VIRUS VAC CPT-4: G0008 04/24/2016 FLU VACC 4 YA 3 YRS PLUS IM SNOMED CT: 21211215 CPT-4: 86705 04/24/2016 Vital Signs Date Vital 08/03/2017 Blood Pressure 1: 126/64 Code : 8480-6 BMI: 27.0 Code : 66917-5 Heart Rate 1 : 92 bpm Height: 6' SpO2: 94% Temperature: 37.4 (C) / 99.3 (F) Weight: 199 lbs 07/05/2017 Blood Pressure 1: 134/66 Code : 8480-6 BMI: 27.1 Code : 94095-1 Heart Rate 1 : 72 bpm Height: 6' SpO2: 96% Weight: 200 lbs 04/23/2017 Blood Pressure 1: 130/72 Code : 8480-6 BMI: 25.9 Code : 48454-0 Heart Rate 1 : 56 bpm Height: 6' SpO2: 97% Weight: 191 lbs 04/08/2017 Blood Pressure 1: 116/64 Code : 8480-6 BMI: 25.9 Code : 86542-4 Heart Rate 1 : 71 bpm Height: 6' SpO2: 97% Weight: 191 lbs 01/21/2017 Blood Pressure 1: 132/74 Code : 8480-6 BMI: 26.0 Code : 25319-2 Heart Rate 1 : 54 bpm Height: 6' SpO2: 94% Weight: 192 lbs 10/19/2016 Blood Pressure 1: 132/64 Code : 8480-6 BMI: 27.7 Code : 58469-3 Heart Rate 1 : 77 bpm Height: 6' SpO2: 98% Weight: 204 lbs 07/23/2016 Blood Pressure 1: 130/62 Code : 8480-6 BMI: 27.8 Code : 24598-5 Heart Rate 1 : 95 bpm Height: 6' SpO2: 97% Weight: 205 lbs 05/19/2016 Blood Pressure 1: 118/70 Code : 8480-6 BMI: 27.9 Code : 24737-1 Heart Rate 1 : 76 bpm Height: 6' SpO2: 97% Weight: 206 lbs 04/21/2016 Blood Pressure 1: 130/70 Code : 8480-6 BMI: 27.9 Code : 72871-2 Heart Rate 1 : 76 bpm Height: 6' SpO2: 96% Weight: 206 lbs 03/26/2016 Blood Pressure 1: 130/78 Code : 8480-6 BMI: 27.7 Code : 91893-9 Heart Rate 1 : 61 bpm Height: 6' SpO2: 98% Weight: 204 lbs 01/27/2016 Blood Pressure 1: 124/80 Code : 8480-6 BMI: 27.5 Code : 61292-9 Heart Rate 1 : 78 bpm Height: 6' SpO2: 96% Weight: 203 lbs 10/28/2015 Blood Pressure 1: 138/78 Code : 8480-6 BMI: 27.7 Code : 72370-3 Heart Rate 1 : 76 bpm Height: 6' SpO2: 98% Weight: 204 lbs 08/27/2015 Blood Pressure 1: 128/56 Code : 8480-6 BMI: 27.4 Code : 85471-3 Heart Rate 1 : 49 bpm Height: 6' SpO2: 98% Weight: 202 lbs 06/06/2015 Blood Pressure 1: 128/62 Code : 8480-6 BMI: 26.0 Code : 57230-7 Heart Rate 1 : 80 bpm Height: 6' SpO2: 98% Weight: 192 lbs 04/30/2015 Blood Pressure 1: 138/64 Code : 8480-6 BMI: 19.2 Code : 27330-2 Heart Rate 1 : 71 bpm Height: 6' SpO2: 94% Weight: 141 lbs 8 oz 04/23/2015 Blood Pressure 1: 128/64 Code : 8480-6 BMI: 25.6 Code : 25266-6 Heart Rate 1 : 66 bpm Height: 6' SpO2: 98% Weight: 189 lbs 03/04/2015 Blood Pressure 1: 132/50 Code : 8480-6 BMI: 25.8 Code : 45688-3 Heart Rate 1 : 63 bpm Height: 6' SpO2: 97% Weight: 190 lbs 12/04/2014 Blood Pressure 1: 112/68 Code : 8480-6 BMI: 26.9 Code : 75226-5 Heart Rate 1 : 68 bpm Height: 6' Weight: 198 lbs Functional Status No Functional Status data History of Present Illness Symptom Name Status Result Effective Date Notes cough Onset and Resolution sudden in onset [...] data Encounters Encounter Performer Location Codes Date ([id number]) 58422 EST. PATIENT, LEVEL III Diagnosis: Cough[ICD10: R05] Diagnosis: Acute bronchitis due to other specified organisms[ICD10: J20.8] Ayana Iyer MD, [facility] CPT-4: 75536 08/03/2017 [id number]) [id number] EST. PATIENT, LEVEL III Diagnosis: Essential (primary) hypertension[ICD10: I10] [facility] CPT-4: 37465 07/05/2017 [id number]) 75736 EST. PATIENT, LEVEL IV Diagnosis: Essential (primary) hypertension[ICD10: I10] Diagnosis: Type 2 diabetes mellitus without complications[ICD10: E11.9] Diagnosis: Hypothyroidism, unspecified[ICD10: E03.9] Shalini Iyer MD, [facility] CPT-4: 79087 04/23/2017 ([id number]) 22818 EST. PATIENT, LEVEL III Diagnosis: Other allergic rhinitis[ICD10: J30.89] Shalnii Iyer MD, [facility] CPT-4: 41252 04/08/2017 ([id number]) 20270 EST. PATIENT, LEVEL IV Diagnosis: Type 2 diabetes mellitus without complications[ICD10: E11.9] Diagnosis: Essential (primary) hypertension[ICD10: I10] Diagnosis: Hypothyroidism, unspecified[ICD10: E03.9] Diagnosis: Allergic rhinitis due to pollen[ICD10: J30.1] Shalini Iyer MD, [facility] CPT-4: 54050 01/21/2017 ([id number]) 82951 EST. PATIENT, LEVEL IV Diagnosis: Essential (primary) hypertension[ICD10: I10] Diagnosis: Mixed hyperlipidemia[ICD10: E78.2] Diagnosis: Hypothyroidism, unspecified[ICD10: E03.9] Diagnosis: Pain in left knee[ICD10: M25.562] Diagnosis: Type 2 diabetes mellitus without complications[ICD10: E11.9] Shalini Iyer MD, [facility] CPT-4: 69139 10/19/2016 ([id number]) 38515 EST. PATIENT, LEVEL IV Diagnosis: Essential (primary) hypertension[ICD10: I10] Diagnosis: Type 2 diabetes mellitus without complications[ICD10: E11.9] Diagnosis: Hypothyroidism, unspecified[ICD10: E03.9] Diagnosis: Mixed hyperlipidemia[ICD10: E78.2] Shalini Iyer MD, [facility] CPT-4: 14022 07/23/2016 ([id number]) 12944 EST. PATIENT, LEVEL III Diagnosis: Acute recurrent maxillary sinusitis[ICD10: J01.01] Shalini Iyer MD, [facility] CPT-4: 07411 05/19/2016 ([id number]) 26601 EST. PATIENT, LEVEL III Diagnosis: Type 2 diabetes mellitus without complications[ICD10: E11.9] Diagnosis: Essential (primary) hypertension[ICD10: I10] Diagnosis: Allergic rhinitis due to pollen[ICD10: J30.1] Shalini Iyer MD, [facility] CPT-4: 89037 04/21/2016 ([id number]) 07365 EST. PATIENT, LEVEL III Diagnosis: Pain in left knee[ICD10: M25.562] Diagnosis: Localized edema[ICD10: R60.0] Shalini Iyer MD, [facility] CPT-4: 01636 03/26/2016 ([id number]) 38870 EST. PATIENT, LEVEL IV Diagnosis: Essential (primary) hypertension[ICD10: I10] Diagnosis: Type 2 diabetes mellitus without complications[ICD10: E11.9] Diagnosis: Pain in right shoulder[ICD10: M25.511] Shalini Iyer MD, [facility] CPT-4: 35331 01/27/2016 ([id number]) 06109 EST. PATIENT, LEVEL IV Diagnosis: Essential (primary) hypertension[ICD10: I10] Diagnosis: Allergic rhinitis due to pollen[ICD10: J30.1] Diagnosis: Type 2 diabetes mellitus without complications[ICD10: E11.9] Diagnosis: Hypothyroidism, unspecified[ICD10: E03.9] Shalini Iyer MD, [facility] CPT-4: 20843 10/28/2015 ([id number]) 84397 EST. PATIENT, LEVEL IV Diagnosis: Essential (primary) hypertension[ICD10: I10] Diagnosis: Type 2 diabetes mellitus without complications[ICD10: E11.9] Diagnosis: Hypothyroidism, unspecified[ICD10: E03.9] Diagnosis: Lichen planus, unspecified[ICD10: L43.9] Shalini Iyer MD, [facility] CPT-4: 87599 08/27/2015 ([id number]) 13145 EST. PATIENT, LEVEL III Diagnosis: Cervical disc disorder with radiculopathy, unspecified cervical region[ICD10: M50.10] Diagnosis: Type 2 diabetes mellitus without complications[ICD10: E11.9] Diagnosis: Essential (primary) hypertension[ICD10: I10] Shalini Iyer MD, [facility] CPT-4: 13020 06/06/2015 ([id number]) 96404 EST. PATIENT, LEVEL III Diagnosis: Cervicalgia[ICD10: M54.2] Shalini Iyer MD, [facility] CPT-4: 16263 04/30/2015 ([id number]) 33540 EST. PATIENT, LEVEL III Diagnosis: Essential (primary) hypertension[ICD10: I10] Diagnosis: Type 2 diabetes mellitus without complications[ICD10: E11.9] Diagnosis: Primary osteoarthritis, unspecified site[ICD10: M19.91] Shalini Iyer MD, [facility] CPT-4: 69820 04/23/2015 ([id number]) 46287 EST. PATIENT, LEVEL IV Diagnosis: ESSENTIAL HYPERTENSION[ICD9: 401.9] Diagnosis: DIABETES TYPE II[ICD9: 250.00] Diagnosis: Osteoarthritis[ICD9: 715.90] Shalini Iyer MD, [facility] CPT-4: 53858 03/04/2015 ([id number]) OFFICE VISIT, NEW - LEVEL 4 Diagnosis: ESSENTIAL HYPERTENSION[ICD9: 401.9] Diagnosis: Hypothyroidism[ICD9: 244.9] Diagnosis: DIABETES TYPE II[ICD9: 250.00] Diagnosis: ACTINIC KERATOSIS[ICD9: 702.0] Shalini Iyer MD, [facility] CPT-4: 34850 12/04/2014 Plan of Care Planned Activity Notes Codes Status Date Visit Plan: Bronchitis - acute case of bronchitis identified. Pt has been given antibiotics, breathing treatments as appropriate, and pt has been instructed to call if symptoms are not improved, or if symptoms acutely worsen. 08/03/2017 Patient Education: Patient Medication Summary Completed 08/03/2017 Visit Plan: Hypertension - well controlled - continue with current medications, continue with no added salt diet. Pt has been encouraged to exercise daily. The pt has been advised to call the office if there are any acute concerns about change in blood pressure readings at home. 07/05/2017 Appointment: Shalini Mitchell WPtel: [address] [place], [place] [phone] (30 min) [facility] 07/05/2017 Patient Education: Patient Medication Summary Completed 07/05/2017 Patient Education: Patient Medication Summary Completed 04/30/2017 Care Plan: %Hba1C LOINC : 83128-2 Pending 04/30/2017 Visit Plan: Hypertension - well [...] control. 04/23/2017 Appointment: Shalini Mitchell WPtel: [phone] (30 min) Complex 04/23/2017 Patient Education: Patient [...] allergy spray. 04/08/2017 Appointment: Shalini Mitchell WPtel: [facility] (15 min) Moderate 04/08/2017 Patient Education: Patient [...] allergy spray. 01/21/2017 Appointment: Shalini Mitchell WPtel: [facility]8 [phone] (15 min) Moderate 01/21/2017 Patient Education: Patient Medication Summary Completed 01/21/2017 Appointment: Shalini Mitchell WPtel[phone] (15 min) Moderate 01/18/2017 Visit Plan: [...] symptoms persist 10/19/2016 Appointment: Shalini Mitchell WPtel: [address] [place], [place] [phone] (30 min) [facility] 10/19/2016 Patient Education: Patient Medication Summary [...] to medications. 07/23/2016 Appointment: Shalini Mitchell WPtel: [facility]5 [phone] (30 min) Complex 07/23/2016 Patient Education: Patient Medication Summary Completed 07/23/2016 Visit Plan: Sinusitis - Pt has acute infection - pain in face, maxillary region, Pt informed to use decongestant, RX given to patient, sinus rinses also recommended. Call if symptoms do not show improvement. Kenalog injection today in the office. 05/19/2016 Appointment: Shalini Mitchell WPtel: [facility]5 [phone] (15 min) Moderate 05/19/2016 Patient Education: Patient Medication Summary Completed 05/19/2016 Appointment: Injection 05/12/2016 Patient Education: Patient Medication Summary Completed 05/12/2016 Appointment: Injection 05/05/2016 Patient Education: Patient Medication Summary Completed 05/05/2016 Appointment: Shalini Mitchell WPtel: [phone] [phone] (30 min) Complex 05/01/2016 Appointment: Injection 04/24/2016 [...] spray. 04/21/2016 Appointment: Shalini Mitchell WPtel: [phone] [phone] (30 min) Complex 04/21/2016 Patient Education: Patient [...] peripheral edema. 03/26/2016 Appointment: Shalini Mitchell WPtel: [phone] [phone] (15 min) Moderate 03/26/2016 Patient Education: Patient [...] controlled. Right shoulder pain-refer for PT at [facility] 01/27/2016 Appointment: (30 min) Complex 01/27/2016 Patient [...] based on previous levels of control. 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 Lichen rvtzya-yaqhj-hc terminal superintendent doxycycline per Dr Eduardo centeno-check labs- continue [...] Dr Moraes in 06/06/2015 Appointment: (30 min) Km 06/06/2015 Patient Education: Patient Medication Summary Completed [...] Completed 12/04/2014 Care Plan: COMPLETE CBC AUTOMATED LOST. [facility] : 95309-5 Ordered 12/04/2014 Instructions Comment . Hypertension - [...] controlled. Right shoulder pain-refer for PT at [facility] FASTING LABS ON WEDNESDAY AT [employer]ING FITTED SHOES FROM DR. COLÓN [...] symptoms persist FASTING LABS ON WEDNESDAY AT [employer]TED SHOES FROM DR. COLÓN [...] pain-refer for PT if symptoms persist . Hypertension - well controlled - continue [...] 100 feet without stopping to rest. . 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 Lichen ukcsyy-wzwfe-jg mcfp doxycycline per Dr Iyer-javi centeno-check labs-continue clobetasol Get fasting labs this week Wants a [...] to start glucosamine 1 tab twice daily SWITCH BACK TO ELLIE DAILY FOR ALLERGY [...] based on previous levels of control. . Diabetes Mellitus -I have recommended for [...] in blood pressure readings at home. . Bronchitis - acute case of bronchitis [...] stenosis-surgery scheduled with Dr Moraes in June . Sinusitis - Pt has acute infection - pain in face, maxillary region, Pt informed to use decongestant, RX given to patient, sinus rinses also recommended. Call if symptoms do not show improvement. Kenalog injection today in the office. . Left knee pain-continue rest, ice, and [...] to further attempt to reduce peripheral edema. Check fasting labs . Hypertension - well [...] based on previous levels of control. 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
--- OUTSIDE RECORDS SUMMARY | 2018-04-26 11:57 | XMS REPORT | CCD ---
Author Author Shalini Mitchell MD, [facility] Address [address] [place] [address] Phone Care Team Providers Care Quality Compliance Coordinator Name Role Phone PP Unavailable CCM Unavailable Summary Purpose Interface Exchange Insurance Providers Payer name Policy type / Coverage type Covered libertarian ID Effective Begin Date Effective End Date WPS Medicare Part B Medicare Part B [id number] Unknown Unknown [facility] Medicare Part B [id number] Unknown Unknown Family history Mother Diagnosis Age At Onset advanced age Unknown Father Diagnosis Age At Onset autoimmune disease Unknown Social History Social History Element Codes Description Effective Dates Marital status Unknown 12/04/2014 Number of children Unknown 3 12/04/2014 Employment Unknown Retired [employer] 12/04/[address]: 1051278 Quit over 10 years ago 12/04/[address]: 484878364 Never drinks alcohol 12/04/2014 Allergies, Adverse Reactions, Alerts Allergies, Adverse Reactions, Alerts data not found Past Medical History Illness Codes Condition Status Onset Date Resolved Date Cough ICD-9: 786.2 ICD-10: R05 Active 08/03/2017 Unknown Essential (primary) hypertension ICD-9: 401.1 ICD-10: I10 Active 10/19/2016 Unknown Type 2 diabetes mellitus without complications ICD-9: 250.00 ICD-10: E11.9 Active 07/22/2016 Unknown Acute bronchitis due to other specified organisms ICD-9: 466.0 ICD-10: J20.8 Active 08/03/2017 Unknown Hypothyroidism, unspecified ICD-9: 244.9 ICD-10: E03.9 [...] Problems Condition Codes Effective Dates Condition Status Cough ICD-9: 786.2 ICD-10: R05 08/03/2017 Active Essential (primary) hypertension ICD-9: 401.1 ICD-10: I10 10/19/2016 Active Type 2 diabetes mellitus without complications ICD-9: 250.00 ICD-10: E11.9 07/22/2016 Active Acute bronchitis due to other specified organisms ICD-9: 466.0 ICD-10: J20.8 08/03/2017 Active Hypothyroidism, unspecified ICD-9: 244.9 ICD-10: E03.9 [...] Start Date Stop Date Status Fill Instructions Zithromax Z-Anil 250 mg tablet RxNorm: 862343 1 Tablet(s) PO UD 08/30/2017 09/03/2017 Active zpack Tessalon 200 mg capsule RxNorm: 779005 1 Capsule(s) PO TID as needed 08/23/2017 09/11/2017 Active Tessalon 200 mg capsule RxNorm: 446564 1 Capsule(s) PO TID as needed 08/23/2017 08/22/2017 Inactive prednisone 10 mg tablet RxNorm: 779623 Tablet(s) PO UD 2017 No Stop Date Active 6,5,4,3,2,1 doxycycline hyclate 100 mg capsule RxNorm: 2205905 1 Capsule(s) PO BID 08/18/2017 08/27/2017 Inactive Phenergan-Codeine 6.25 mg-10 mg/5 mL syrup RxNorm: 665889 5 to 10 ml PO Q6 as needed 08/17/2017 08/22/2017 Inactive Zithromax Z-Anil 250 mg tablet RxNorm: 833599 1 Tablet(s) PO UD 2017 08/17/2017 Inactive zpack ceftriaxone 500 mg solution for injection RxNorm: 8986658 Inj 08/03/2017 08/03/2017 Inactive cephalexin 500 mg capsule RxNorm: 150814 1 Capsule(s) PO QID 08/09/2017 Inactive Kenalog 40 mg/mL suspension for injection RxNorm: 9810689 1 Milliliter(s) Inj 08/03/2017 08/03/2017 Inactive losartan 50 mg tablet RxNorm: 720096 TAKE ONE TABLET BY MOUTH ONCE DAILY IN THE MORNING 08/02/2017 No Stop Date Active simvastatin 10 mg tablet RxNorm: 662427 TAKE ONE TABLET BY MOUTH ONCE DAILY 08/02/2017 No Stop Date Active levothyroxine 137 mcg tablet RxNorm: 694922 TAKE ONE TABLET BY MOUTH ONCE DAILY 07/26/2017 No Stop Date Active Flonase Allergy Relief 50 mcg/actuation nasal spray, suspension RxNorm: 7879811 USE TWO SPRAY(S) IN EACH NOSTRIL ONCE DAILY 06/28/2017 No Stop Date Active baclofen 10 mg tablet RxNorm: 396139 TAKE ONE TABLET BY MOUTH THREE TIMES DAILY NEEDED FOR MUSCLE SPASM 06/28/2017 No Stop Date Active Kenalog 40 mg/mL suspension for injection RxNorm: 3961458 1 Milliliter(s) Inj 04/08/2017 04/08/2017 Inactive doxycycline hyclate 100 mg tablet RxNorm: 848974 1 Tablet(s) PO BID 04/01/2017 04/10/2017 Inactive PLEASE GIVE 90 DAY SUPPLY losartan 50 mg tablet RxNorm: 651641 TAKE ONE TABLET BY MOUTH ONCE DAILY IN THE MORNING 02/01/2017 07/30/2017 Inactive levothyroxine 137 mcg tablet RxNorm: 364224 1 Tablet(s) PO daily 01/22/2017 07/20/2017 Inactive hold until he calls for fill- using samples from office metoprolol succinate ER 25 mg tablet,extended release 24 hr RxNorm: 744491 1 Tablet(s) PO daily 01/11/2017 01/05/2018 Active tamsulosin 0.4 mg capsule RxNorm: 983467 TAKE ONE CAPSULE BY MOUTH ONCE DAILY 01/11/2017 10/07/2017 Active simvastatin 10 mg tablet RxNorm: 323265 TAKE ONE TABLET BY MOUTH ONCE DAILY 12/17/2016 06/14/2017 Inactive levothyroxine 150 mcg tablet RxNorm: 681427 1 Tablet(s) PO daily 09/24/2016 01/21/2017 Inactive doxycycline hyclate 100 mg tablet RxNorm: 468966 1 Tablet(s) PO daily 07/30/2016 01/25/2017 Inactive PLEASE GIVE 90 DAY SUPPLY doxycycline hyclate 100 mg tablet RxNorm: 383793 1 Tablet(s) PO daily 07/27/2016 07/29/2016 Inactive PLEASE GIVE 90 DAY SUPPLY quinine 324 mg capsule RxNorm: 751847 1 Capsule(s) PO HS PRN No Stop Date Active LEG CRAMPS doxycycline hyclate 100 mg tablet RxNorm: 690409 1 Tablet(s) PO daily 05/29/2016 07/26/2016 Inactive PLEASE GIVE 90 DAY SUPPLY Kenalog 40 mg/mL suspension for injection RxNorm: 0726117 Milliliter(s) Inj 05/19/2016 05/19/2016 Inactive Levaquin 500 mg tablet RxNorm: 647298 1 Tablet(s) PO daily 07/201505/25/2016 Inactive Zithromax Z-Anil 250 mg tablet RxNorm: 973112 1 Tablet(s) PO UD 05/14/2016 09/09/2016 Inactive zpack Kenalog 40 mg/mL suspension for injection RxNorm: 0188472 Milliliter(s) Inj 05/12/2016 05/12/2016 Inactive Zithromax Z-Anil 250 mg tablet RxNorm: 009051 1 Tablet(s) PO UD 05/08/2016 05/12/2016 Inactive zpack Flonase Allergy Relief 50 mcg/actuation nasal spray, suspension RxNorm: 1055321 2 [place] NASAL daily 04/21/20162016 Inactive levothyroxine 150 mcg tablet RxNorm: 622913 1 Tablet(s) PO daily 04/21/2016 09/23/2016 Inactive baclofen 10 mg tablet RxNorm: 991925 1 Tablet(s) PO TID as needed for muscle spasms 04/10/2016 11/05/2016 Inactive Flonase Allergy Relief 50 mcg/actuation nasal spray, suspension RxNorm: 1223943 2 [place] NASAL daily 01/27/20162015 Inactive losartan 50 mg tablet RxNorm: 825610 1 Tablet(s) PO QAM 201501/09/2017 Inactive magnesium oxide 400 mg tablet RxNorm: 674311 1 Tablet(s) PO daily 01/16/2016 01/09/2017 Inactive omega 1-sob-ibj-fish oil 300 mg-1,000 mg capsule,delayed release RxNorm: 1 Capsule(s) PO daily 01/16/2016 01/09/2017 Inactive ask pt if this is needed- he may use OTC levothyroxine 175 mcg tablet RxNorm: 887222 1 Tablet(s) PO daily 01/16/2016 04/20/2016 Inactive metoprolol succinate ER 25 mg tablet,extended release 24 hr RxNorm: 659269 1 Tablet(s) PO daily 01/16/2016 01/09/2017 Inactive baclofen 10 mg tablet RxNorm: 028246 1 Tablet(s) PO TID as needed for muscle spasms 01/16/2016 04/09/2016 Inactive omega 1-yyl-ejo-fish oil 300 mg-1,000 mg capsule,delayed release RxNorm: 1 Capsule(s) PO daily 01/16/2016 01/15/2016 Inactive ask pt if this is needed- he may use OTC simvastatin 10 mg tablet RxNorm: 999303 1 Tablet(s) PO daily 12/16/2016 Inactive tamsulosin 0.4 mg capsule RxNorm: 338753 TAKE ONE CAPSULE BY MOUTH ONCE DAILY 01/05/2016 01/10/2017 Inactive levothyroxine 150 mcg tablet RxNorm: 868214 1 Tablet(s) PO daily 12/05/2015 12/04/2015 Inactive levothyroxine 150 mcg tablet RxNorm: 987083 1 Tablet(s) PO daily 12/05/2015 01/15/2016 Inactive metoprolol succinate ER 25 mg tablet,extended release 24 hr RxNorm: 813134 1 Tablet(s) PO daily 10/22/2015 01/15/2016 Inactive losartan 50 mg tablet RxNorm: 544659 1 Tablet(s) PO QAM 201501/15/2016 Inactive levothyroxine 175 mcg tablet RxNorm: 104286 1 Tablet(s) PO daily 09/09/2015 12/04/2015 Inactive doxycycline hyclate 100 mg tablet RxNorm: 052325 1 Tablet(s) PO daily 08/27/2015 01/15/2016 Inactive PLEASE GIVE 90 DAY SUPPLY doxycycline hyclate 100 mg tablet RxNorm: 515810 1 Tablet(s) PO daily 08/27/2015 08/26/2015 Inactive chlorzoxazone 500 mg tablet RxNorm: 972193 1 Tablet(s) PO Q6 as needed muscle spasms 08/15/2015 03/11/2016 Inactive chlorzoxazone 500 mg tablet RxNorm: 908185 1 Tablet(s) PO Q6 as needed muscle spasms 08/15/2015 08/14/2015 Inactive ketoconazole 2 % shampoo RxNorm: 570634 1 Application TOP UD 08/04/2015 Inactive ketoconazole 2 % shampoo RxNorm: 136684 1 Application TOP UD 01/15/2016 Inactive clobetasol 0.05 % topical solution RxNorm: 229080 1 Application TOP daily 08/01/2015 07/31/2015 Inactive clobetasol 0.05 % topical solution RxNorm: 819183 1 Application TOP daily 08/01/2015 01/15/2016 Inactive levothyroxine 175 mcg tablet RxNorm: 513681 1 Tablet(s) PO daily 07/22/2015 09/08/2015 Inactive doxycycline hyclate 100 mg tablet RxNorm: 735893 1 Tablet(s) PO daily 07/17/2015 08/15/2015 Inactive levothyroxine 175 mcg tablet RxNorm: 466665 Tablet(s) PO every other day 07/17/2015 07/21/2015 Inactive Zithromax Z-Anil 250 mg tablet RxNorm: 099419 1 Tablet(s) PO 05/07/2016 Inactive 1 zpack finasteride 5 mg tablet RxNorm: 047414 1 Tablet(s) PO daily 12/27/2015 Inactive simvastatin 10 mg tablet RxNorm: 236739 1 Tablet(s) PO daily 12/27/2015 Inactive clopidogrel 75 mg tablet RxNorm: 878769 1 Tablet(s) PO daily 01/15/2016 Inactive metoprolol succinate ER 25 mg tablet,extended release 24 hr RxNorm: 069200 1 Tablet(s) PO daily 07/01/2015 10/21/2015 Inactive levothyroxine 150 mcg tablet RxNorm: 992134 1 Tablet(s) PO daily 07/01/2015 07/21/2015 Inactive tamsulosin 0.4 mg capsule RxNorm: 798930 1 Capsule(s) PO daily 07/01/2015 12/27/2015 Inactive losartan 50 mg tablet RxNorm: 789901 1 Tablet(s) PO QAM 201410/17/2015 Inactive levothyroxine 150 mcg tablet RxNorm: 286446 1 Tablet(s) PO daily 07/01/2015 06/30/2015 Inactive Zithromax Z-Anil 250 mg tablet RxNorm: 408481 1 Tablet(s) PO 03/201507/09/2015 Inactive 1 zpack Januvia 100 mg tablet RxNorm: 786091 1/2 Tablet(s) PO BID 201405/22/2015 Inactive Januvia 50 mg tablet RxNorm: 343192 1 Tablet(s) PO BID 201404/22/2015 Inactive chlorzoxazone 500 mg tablet RxNorm: 092593 1 Tablet(s) PO Q6 as needed muscle spasms 01/21/2015 01/20/2015 Inactive baclofen 10 mg tablet RxNorm: 896808 1 Tablet(s) PO TID as needed for muscle spasms 01/21/2015 06/30/2015 Inactive chlorzoxazone 500 mg tablet RxNorm: 774042 1 Tablet(s) PO Q6 as needed muscle spasms 01/21/2015 03/03/2015 Inactive Vitamin D3 2,000 unit tablet RxNorm: 898465 Tablet(s) PO BID No Stop Date Active [SAVINGS FOR NON-COVERED DRUGS -- BIN:[id number], PCN: [id number], Group: [id number] , ID# [id number], Questions: . THIS IS NOT INSURANCE.] Claritin 10 mg tablet RxNorm: 139541 1 Tablet(s) PO daily No Start Date Active aspirin 81 mg tablet RxNorm: 847101 Tablet(s) PO daily No Start Date Active Centrum Silver oral RxNorm: 77266 oral No Start Date Active Calcium Citrate + D 600 mg RxNorm: 630mg PO daily No Start Date Active sodium chloride oral RxNorm: oral No Start Date Active Vitamin C 500 mg chewable tablet RxNorm: 255315 1 Tablet(s) PO No Start Date Active Vitamin B12 Oral RxNorm: oral No Start Date Active Fish Oil (with DHA-EPA) capsule RxNorm: oral No Start Date 01/15/2016 Inactive clopidogrel 75 mg tablet RxNorm: 136211 1 Tablet(s) PO daily No Start Date 06/30/2015 Inactive metoprolol succinate ER 25 mg tablet,extended release 24 hr RxNorm: 100455 1 Tablet(s) PO daily No Start Date 2014 Inactive simvastatin 10 mg tablet RxNorm: 040879 1 Tablet(s) PO daily No Start Date 06/30/2015 Inactive Claritin 10 mg tablet RxNorm: 236073 1 Tablet(s) PO daily No Start Date 07/16/2015 Inactive levothyroxine 175 mcg tablet RxNorm: 287251 Tablet(s) PO every other day No Start Date 06/30/2015 Inactive Vitamin D3 2,000 unit tablet RxNorm: 270408 Tablet(s) PO daily No Start Date 12/03/2014 Inactive losartan 50 mg tablet RxNorm: 302417 1 Tablet(s) PO QAM No Start Date 06/30/2015 Inactive magnesium oxide 400 mg tablet RxNorm: 674502 1 Tablet(s) PO daily No Start Date 01/15/2016 Inactive Phenergan-Codeine 6.25 mg-10 mg/5 mL syrup RxNorm: 418047 5 to 10 ml PO Q6 No Start Date 08/16/2017 Inactive baclofen 10 mg tablet RxNorm: 503121 1 Tablet(s) PO TID as needed for muscle spasms No Start Date 01/20/2015 Inactive finasteride 5 mg tablet RxNorm: 897093 1 Tablet(s) PO daily No Start Date 06/30/2015 Inactive quinine 324 mg capsule RxNorm: 056428 1 Capsule(s) PO HS PRN No Start Date 06/14/2016 Inactive LEG CRAMPS Vitamin D3 (with calcium carbonate) oral RxNorm: 217911 oral No Start Date 01/15/2016 Inactive Zithromax Z-Anil 250 mg tablet RxNorm: 302731 1 Tablet(s) PO No Start Date 06/25/2015 Inactive 1 zpack levothyroxine 150 mcg tablet RxNorm: 881650 Tablet(s) PO every other day No Start Date 06/30/2015 Inactive Januvia 50 mg tablet RxNorm: 165044 1 Tablet(s) PO daily No Start Date 03/06/2015 Inactive fluticasone 50 mcg/actuation nasal spray,suspension RxNorm: 827941 1 [place] NASAL daily No Start Date 01/15/2016 Inactive tamsulosin ER 0.4 mg capsule,extended release 24 hr RxNorm: 979650 1 Capsule(s) PO daily No Start Date 06/30/2015 Inactive Ellie 180 mg tablet RxNorm: 124067 1 Tablet(s) PO daily No Start Date 01/15/2016 Inactive Medication Administered Medication Codes Instructions Start Date Status ceftriaxone 500 mg solution for injection RxNorm: 0997363 08/03/2017 No longer Active Kenalog 40 mg/mL suspension for injection RxNorm: 2556026 1Milliliter 08/03/2017 No longer Active Kenalog 40 mg/mL suspension for injection RxNorm: 2063131 1Milliliter 04/08/2017 No longer Active Kenalog 40 mg/mL suspension for injection RxNorm: 6668846 Milliliter 05/19/2016 No longer Active Kenalog 40 mg/mL suspension for injection RxNorm: 4958238 Milliliter 05/12/2016 No longer Active Immunizations Vaccine Codes Date Status Influenza CVX: 141 04/01/2017 completed Pneumococcal (Adult) CVX: 33 05/05/2016 completed Influenza CVX: 141 04/24/2016 completed Influenza CVX: 141 04/17/2015 completed Pneumococcal CVX: 133 04/17/2015 completed Influenza CVX: 141 05/19/2014 completed Zoster CVX: 121 04/18/2006 completed Pneumococcal CVX: 33 06/18/2005 completed Assessments Condition Codes Effective Dates Essential (primary) hypertension ICD-10: I10 ICD-9: 401.1 09/01/2017 Type 2 diabetes mellitus without complications ICD-10: E11.9 ICD-9: 250.00 09/01/2017 Cough ICD-10: R05 ICD-9: 786.2 09/01/2017 Acute bronchitis due to other specified organisms ICD-10: J20.8 ICD-9: 466.0 08/18/2017 Hypothyroidism, unspecified ICD-10: E03.9 ICD-9: 244.9 04/23/2017 [...] Reason For Visit Effective Dates Notes cough 09/01/2017 cough 08/18/2017 cough 08/03/2017 diabetes [...] Code Item Item Code Result Date %Hba1C Jki753 % HbA1c 87886-3 6.5 % 04/28/2017 %Hba1C Fpr053 Gluc Ave 140 mg/dL 04/28/2017 Lipid Ord30 [...] 29.5 pg 04/28/2017 Cbc With Differential Ord2 [place]% 14.0 % 04/28/2017 Cbc With Differential Ord2 [...] 1.07 K/ul 04/28/2017 Cbc With Differential Ord2 [place] ABS# 1.0 K/ul 04/28/2017 Cbc With Differential Ord2 Eos ABS# 0.2 K/ul 04/28/2017 Cbc With Differential Ord2 Baso ABS# 0.0 K/ul 04/28/2017 Free T4 Ubf769 FREE T4 1.07 ng/dL 04/28/2017 Comp Metabolic Zdi982 NA 140 mEq/L 04/28/2017 Comp Metabolic Cra436 K 4.6 mEq/L 04/28/2017 Comp Metabolic Jwf042 CL 104 mEq/L 04/28/2017 Comp Metabolic Xea668 CO2 27.0 mEq/L 04/28/2017 Comp Metabolic Xqy687 ANION GAP 14 04/28/2017 Comp Metabolic Ynz601 GLUCOSE 141 mg/dL 04/28/2017 Comp Metabolic Hco040 Creat 1.0 mg/dL 04/28/2017 Comp Metabolic Uzk056 eGFR 79 ml/min/1.73m2 04/28/2017 Comp Metabolic Ipo355 BUN 26 mg/dL 04/28/2017 Comp Metabolic Kyx182 B/C Ratio 26.8 Ratio 04/28/2017 Comp Metabolic Zus484 CALCIUM 9.4 mg/dL 04/28/2017 Comp Metabolic Hhd417 ALK PHOS 66 U/L 04/28/2017 Comp Metabolic Uxx234 AST(SGOT) 21 U/L 04/28/2017 Comp Metabolic Ukg744 ALT(SGPT) 20 U/L 04/28/2017 Comp Metabolic Uav349 BILI T 1.3 mg/dL 04/28/2017 Comp Metabolic Mnx846 ALBUMIN 4.1 g/dL 04/28/2017 Comp Metabolic Swg262 TPRO 6.3 g/dL 04/28/2017 Comp Metabolic Krq255 GLOB 2.2 g/dL 04/28/2017 Comp Metabolic Wku709 A/G Ratio 1.9 Ratio 04/28/2017 Comp Metabolic Tzl210 Osmo 287 mOsmo 04/28/2017 %Hba1C Npb393 % HbA1c 42651-7 6.6 % 01/22/2017 %Hba1C Zkv345 Gluc Ave 143 mg/dL 01/22/2017 Tsh Ord6 [...] 30.2 pg 01/22/2017 Cbc With Differential Ord2 [place]% 14.1 % 01/22/2017 Cbc With Differential Ord2 [...] 1.01 K/ul 01/22/2017 Cbc With Differential Ord2 [place] ABS# 0.9 K/ul 01/22/2017 Cbc With Differential Ord2 Eos ABS# 0.2 K/ul 01/22/2017 Cbc With Differential Ord2 Baso ABS# 0.1 K/ul 01/22/2017 Comp Metabolic Ekz632 NA 140 mEq/L 01/22/2017 Comp Metabolic Lis473 K 4.3 mEq/L 01/22/2017 Comp Metabolic Nix630 CL 104 mEq/L 01/22/2017 Comp Metabolic Srj076 CO2 29.0 mEq/L 01/22/2017 Comp Metabolic Epw462 ANION GAP 11 01/22/2017 Comp Metabolic Kje956 GLUCOSE 146 mg/dL 01/22/2017 Comp Metabolic Esk931 Creat 0.8 mg/dL 01/22/2017 Comp Metabolic Ths670 eGFR 100 ml/min/1.73m2 01/22/2017 Comp Metabolic Zdv652 BUN 19 mg/dL 01/22/2017 Comp Metabolic Rcr369 B/C Ratio 24.1 Ratio 01/22/2017 Comp Metabolic Kbk788 CALCIUM 9.2 mg/dL 01/22/2017 Comp Metabolic Pxq923 ALK PHOS 60 U/L 01/22/2017 Comp Metabolic Gxd574 AST(SGOT) 18 U/L 01/22/2017 Comp Metabolic Ujz592 ALT(SGPT) 17 U/L 01/22/2017 Comp Metabolic Ttn919 BILI T 0.6 mg/dL 01/22/2017 Comp Metabolic Jtc459 ALBUMIN 3.7 g/dL 01/22/2017 Comp Metabolic Kwe990 TPRO 5.8 g/dL 01/22/2017 Comp Metabolic Kbu180 GLOB 2.1 g/dL 01/22/2017 Comp Metabolic Vyv090 A/G Ratio 1.7 Ratio 01/22/2017 Comp Metabolic Pff631 Osmo 284 mOsmo 01/22/2017 Lipid Ord30 CHOL 126 mg/dL 01/22/2017 Lipid Ord30 HDL 43.0 mg/dl 01/22/2017 Lipid Ord30 TRIG 111 mg/dL 01/22/2017 Lipid Ord30 LDL 61 mg/dL 01/22/2017 Lipid Ord30 C/HDL 2.9 Ratio 01/22/2017 Free T4 Fxw675 FREE T4 0.96 ng/dL 01/22/2017 Comp Metabolic Dju838 NA 141 mEq/L 10/23/2016 Comp Metabolic Jhi825 K 4.3 mEq/L 10/23/2016 Comp Metabolic Job580 CL 104 mEq/L 10/23/2016 Comp Metabolic Bxg630 CO2 29.0 mEq/L 10/23/2016 Comp Metabolic Qdh677 ANION GAP 12 10/23/2016 Comp Metabolic Lem557 GLUCOSE 156 mg/dL 10/23/2016 Comp Metabolic Tav107 Creat 0.9 mg/dL 10/23/2016 Comp Metabolic Luh624 eGFR 85 ml/min/1.73m2 10/23/2016 Comp Metabolic Plo920 BUN 19 mg/dL 10/23/2016 Comp Metabolic Lbs155 B/C Ratio 20.9 Ratio 10/23/2016 Comp Metabolic Skz103 CALCIUM 9.2 mg/dL 10/23/2016 Comp Metabolic Oen613 ALK PHOS 72 U/L 10/23/2016 Comp Metabolic Vwq566 AST(SGOT) 21 U/L 10/23/2016 Comp Metabolic Azv371 ALT(SGPT) 19 U/L 10/23/2016 Comp Metabolic Lfd826 BILI T 0.8 mg/dL 10/23/2016 Comp Metabolic Uas992 ALBUMIN 3.8 g/dL 10/23/2016 Comp Metabolic Gzx587 TPRO 6.2 g/dL 10/23/2016 Comp Metabolic Odo556 GLOB 2.4 g/dL 10/23/2016 Comp Metabolic Zdt126 A/G Ratio 1.6 Ratio 10/23/2016 Comp Metabolic Czw122 Osmo 287 mOsmo 10/23/2016 Cbc With Differential [...] 92.9 fl 10/23/2016 Cbc With Differential Ord2 [place]% 12.7 % 10/23/2016 Cbc With Differential Ord2 [...] 0.79 K/ul 10/23/2016 Cbc With Differential Ord2 [place] ABS# 0.7 K/ul 10/23/2016 Cbc With Differential Ord2 Eos ABS# 0.2 K/ul 10/23/2016 Cbc With Differential Ord2 Baso ABS# 0.0 K/ul 10/23/2016 Lipid Ord30 CHOL 134 mg/dL 10/23/2016 Lipid Ord30 HDL 42.0 mg/dl 10/23/2016 Lipid Ord30 TRIG 101 mg/dL 10/23/2016 Lipid Ord30 LDL 72 mg/dL 10/23/2016 Lipid Ord30 C/HDL 3.2 Ratio 10/23/2016 Free T4 Dhn287 FREE T4 0.99 ng/dL 10/23/2016 Tsh Ord6 hTSH II 0.70 uIU/mL 10/23/2016 %Hba1C Yat121 % HbA1c 51080-2 7.0 % 10/23/2016 %Hba1C Pif480 Gluc Ave 154 mg/dL 10/23/2016 Lipid Ord30 CHOL 136 mg/dL 07/24/2016 Lipid Ord30 HDL 52.0 mg/dl 07/24/2016 Lipid Ord30 TRIG 83 mg/dL 07/24/2016 Lipid Ord30 LDL 67 mg/dL 07/24/2016 Lipid Ord30 C/HDL 2.6 Ratio 07/24/2016 %Hba1C Ugn490 % HbA1c 31286-3 7.1 % 07/24/2016 %Hba1C Nad941 Gluc Ave 157 mg/dL 07/24/2016 Tsh Ord6 [...] 93.0 fl 07/24/2016 Cbc With Differential Ord2 [place]% 13.8 % 07/24/2016 Cbc With Differential Ord2 [...] 1.56 K/ul 07/24/2016 Cbc With Differential Ord2 [place] ABS# 1.0 K/ul 07/24/2016 Cbc With Differential Ord2 Eos ABS# 0.2 K/ul 07/24/2016 Cbc With Differential Ord2 Baso ABS# 0.0 K/ul 07/24/2016 Comp Metabolic Lxw483 NA 139 mEq/L 07/24/2016 Comp Metabolic Jme084 K 4.5 mEq/L 07/24/2016 Comp Metabolic Gmv734 CL 103 mEq/L 07/24/2016 Comp Metabolic Ohu944 CO2 30.0 mEq/L 07/24/2016 Comp Metabolic Kkm809 ANION GAP 11 07/24/2016 Comp Metabolic Gqo896 GLUCOSE 161 mg/dL 07/24/2016 Comp Metabolic Pws858 Creat 1.0 mg/dL 07/24/2016 Comp Metabolic Ocn117 eGFR 80 ml/min/1.73m2 07/24/2016 Comp Metabolic Maf664 BUN 23 mg/dL 07/24/2016 Comp Metabolic Jwb957 B/C Ratio 24.0 Ratio 07/24/2016 Comp Metabolic Dcc206 CALCIUM 9.4 mg/dL 07/24/2016 Comp Metabolic Vmk398 ALK PHOS 66 U/L 07/24/2016 Comp Metabolic Pnu978 AST(SGOT) 18 U/L 07/24/2016 Comp Metabolic Ejn702 ALT(SGPT) 22 U/L 07/24/2016 Comp Metabolic Sdi878 BILI T 1.1 mg/dL 07/24/2016 Comp Metabolic Nfu646 ALBUMIN 4.0 g/dL 07/24/2016 Comp Metabolic Hjo926 TPRO 6.4 g/dL 07/24/2016 Comp Metabolic Gpn615 GLOB 2.4 g/dL 07/24/2016 Comp Metabolic Tgv362 A/G Ratio 1.6 Ratio 07/24/2016 Comp Metabolic Fib700 Osmo 285 mOsmo 07/24/2016 %Hba1C Icz896 % HbA1c 08871-4 7.0 % 03/11/2016 %Hba1C Yaj915 Gluc Ave 154 mg/dL 03/11/2016 Free T4 Lad966 FREE T4 0.92 ng/dL 03/11/2016 Tsh Ord6 hTSH II 0.92 uIU/mL 03/11/2016 %Hba1C Eow422 % HbA1c 77536-8 7.1 % 11/27/2015 %Hba1C Gqx825 Gluc Ave 157 mg/dL 11/27/2015 Free T4 Exj594 FREE T4 0.95 ng/dL 11/27/2015 Cbc With [...] 20.3 % 11/27/2015 Cbc With Differential Ord2 [place]% 13.5 % 11/27/2015 Cbc With Differential Ord2 [...] 1.26 K/ul 11/27/2015 Cbc With Differential Ord2 [place] ABS# 0.8 K/ul 11/27/2015 Cbc With Differential Ord2 Eos ABS# 0.2 K/ul 11/27/2015 Cbc With Differential Ord2 Baso ABS# 0.1 K/ul 11/27/2015 Cbc With Differential Ord2 New Analyzer Notice Please note new ref ranges starting 07-31-2015 due to implemntation of new five part differential hematolgy analyzer. 11/27/2015 Tsh Ord6 hTSH II 0.35 uIU/mL 11/27/2015 Comp Metabolic Eqo328 NA 139 mEq/L 11/27/2015 Comp Metabolic Vjb322 K 4.4 mEq/L 11/27/2015 Comp Metabolic Yaa429 CL 105 mEq/L 11/27/2015 Comp Metabolic Bhn235 CO2 28.0 mEq/L 11/27/2015 Comp Metabolic Ffk126 ANION GAP 10 11/27/2015 Comp Metabolic Bfm086 GLUCOSE 139 mg/dL 11/27/2015 Comp Metabolic Try403 Creat 0.9 mg/dL 11/27/2015 Comp Metabolic Vys994 eGFR 89 ml/min/1.73m2 11/27/2015 Comp Metabolic Akp886 BUN 15 mg/dL 11/27/2015 Comp Metabolic Vkx239 B/C Ratio 17.2 Ratio 11/27/2015 Comp Metabolic Ycn509 CALCIUM 8.8 mg/dL 11/27/2015 Comp Metabolic Yqq370 ALK PHOS 78 U/L 11/27/2015 Comp Metabolic Mph376 AST(SGOT) 18 U/L 11/27/2015 Comp Metabolic Ygf367 ALT(SGPT) 16 U/L 11/27/2015 Comp Metabolic Eom304 BILI T 0.9 mg/dL 11/27/2015 Comp Metabolic Svl306 ALBUMIN 3.7 g/dL 11/27/2015 Comp Metabolic Tdo832 TPRO 6.2 g/dL 11/27/2015 Comp Metabolic Clt071 GLOB 2.5 g/dL 11/27/2015 Comp Metabolic Kul146 A/G Ratio 1.5 Ratio 11/27/2015 Comp Metabolic Pzl562 Osmo 281 mOsmo 11/27/2015 Lipid Ord30 CHOL 123 mg/dL 11/27/2015 Lipid Ord30 HDL 41.0 mg/dl 11/27/2015 Lipid Ord30 TRIG 130 mg/dL 11/27/2015 Lipid Ord30 LDL 56 mg/dL 11/27/2015 Lipid Ord30 C/HDL 3.0 Ratio 11/27/2015 Free T4 Bpx104 FREE T4 0.87 ng/dL 08/28/2015 Lipid Ord30 [...] 23.8 % 08/28/2015 Cbc With Differential Ord2 [place]% 12.7 % 08/28/2015 Cbc With Differential Ord2 [...] 1.53 K/ul 08/28/2015 Cbc With Differential Ord2 [place] ABS# 0.8 K/ul 08/28/2015 Cbc With Differential Ord2 Eos ABS# 0.3 K/ul 08/28/2015 Cbc With Differential Ord2 Baso ABS# 0.1 K/ul 08/28/2015 Cbc With Differential Ord2 New Analyzer Notice Please note new ref ranges starting 07-31-2015 due to implemntation of new five part differential hematolgy analyzer. 08/28/2015 %Hba1C Dla443 % HbA1c 30050-5 6.9 % 08/28/2015 %Hba1C Bvy673 Gluc Ave 151 mg/dL 08/28/2015 Comp Metabolic Mps622 NA 139 mEq/L 08/28/2015 Comp Metabolic Hjf191 K 4.5 mEq/L 08/28/2015 Comp Metabolic Sfj804 CL 104 mEq/L 08/28/2015 Comp Metabolic Szt215 CO2 28.0 mEq/L 08/28/2015 Comp Metabolic Cxx143 ANION GAP 12 08/28/2015 Comp Metabolic Tgs963 GLUCOSE 146 mg/dL 08/28/2015 Comp Metabolic Haz279 Creat 1.0 mg/dL 08/28/2015 Comp Metabolic Cht861 eGFR 77 ml/min/1.73m2 08/28/2015 Comp Metabolic Ctp784 BUN 21 mg/dL 08/28/2015 Comp Metabolic Ihm650 B/C Ratio 21.2 Ratio 08/28/2015 Comp Metabolic Tvf765 CALCIUM 9.3 mg/dL 08/28/2015 Comp Metabolic Dvg837 ALK PHOS 70 U/L 08/28/2015 Comp Metabolic Coe446 AST(SGOT) 18 U/L 08/28/2015 Comp Metabolic Vkx084 ALT(SGPT) 16 U/L 08/28/2015 Comp Metabolic Hfm672 BILI T 0.6 mg/dL 08/28/2015 Comp Metabolic Dui090 ALBUMIN 4.0 g/dL 08/28/2015 Comp Metabolic Vbx953 TPRO 6.4 g/dL 08/28/2015 Comp Metabolic Ueg868 GLOB 2.4 g/dL 08/28/2015 Comp Metabolic Imt419 A/G Ratio 1.7 Ratio 08/28/2015 Comp Metabolic Cfn488 Osmo 283 mOsmo 08/28/2015 Lipid Ord30 CHOL 137 mg/dL 03/06/2015 Lipid Ord30 HDL 48.0 mg/dl 03/06/2015 Lipid Ord30 TRIG 121 mg/dL 03/06/2015 Lipid Ord30 LDL 65 mg/dL 03/06/2015 Lipid Ord30 C/HDL 2.9 Ratio 03/06/2015 %Hba1C Uer224 % HbA1c 44549-8 6.7 % 03/06/2015 %Hba1C Hhm973 Gluc Ave 146 mg/dL 03/06/2015 Tsh Ord6 [...] Ord2 RDW 14.5 % 03/06/2015 Comp Metabolic Zup221 NA 137 mEq/L 03/06/2015 Comp Metabolic Lki118 K 4.2 mEq/L 03/06/2015 Comp Metabolic Xkq794 CL 103 mEq/L 03/06/2015 Comp Metabolic Vxn325 CO2 30.0 mEq/L 03/06/2015 Comp Metabolic Lwm599 ANION GAP 8 03/06/2015 Comp Metabolic Pru499 GLUCOSE 156 mg/dL 03/06/2015 Comp Metabolic Bqn773 Creat 1.0 mg/dL 03/06/2015 Comp Metabolic Dtb239 eGFR 75 ml/min/1.73m2 03/06/2015 Comp Metabolic Wla013 BUN 17 mg/dL 03/06/2015 Comp Metabolic Wwh783 B/C Ratio 16.7 Ratio 03/06/2015 Comp Metabolic Qww076 CALCIUM 9.2 mg/dL 03/06/2015 Comp Metabolic Owe021 ALK PHOS 75 U/L 03/06/2015 Comp Metabolic Wci767 AST(SGOT) 17 U/L 03/06/2015 Comp Metabolic Uej662 ALT(SGPT) 16 U/L 03/06/2015 Comp Metabolic Wcr832 BILI T 0.8 mg/dL 03/06/2015 Comp Metabolic Fxk816 ALBUMIN 4.0 g/dL 03/06/2015 Comp Metabolic Fne558 TPRO 6.3 g/dL 03/06/2015 Comp Metabolic Nxy434 GLOB 2.3 g/dL 03/06/2015 Comp Metabolic Scv017 A/G Ratio 1.7 Ratio 03/06/2015 Comp Metabolic Wso521 Osmo 279 mOsmo 03/06/2015 Free T4 Skp324 FREE T4 1.02 ng/dL 03/06/2015 Review of [...] clear 08/27/2015 None Full Exam - General 1995 Ears/Nose/Throat otoscopic exam External auditory canal: partial [...] Procedure Codes Date THER/PROPH/DIAG INJ SC/IM CPT-4: 92525 08/03/2017 TRIAMCINOLONE ACET INJ NOS CPT-4: J3301 08/03/2017 ROCEPHIN, PER 250 MG CPT-4: J0696 08/03/2017 TRIAMCINOLONE ACET INJ NOS CPT-4: J3301 04/08/2017 ADMIN INFLUENZA VIRUS VAC CPT-4: G0008 04/01/2017 FLU VACC PRSV FREE INC ANTIG CPT-4: 63842 04/01/2017 TRIAMCINOLONE ACET INJ NOS CPT-4: J3301 05/19/2016 THER/PROPH/DIAG INJ SC/IM CPT-4: 98346 05/12/2016 TRIAMCINOLONE ACET INJ NOS CPT-4: J3301 05/12/2016 ADMIN PNEUMOCOCCAL VACCINE SNOMED CT: 96487824 CPT-4: G0009 05/05/2016 Pneumococcal Polysaccharide Vaccine, 23-Valent, Ad Formatting Model/CDA Sections, Assigned to/Otilia Ramires CPT-4: 22416Jckemwt 05/05/2016 ADMIN INFLUENZA VIRUS VAC CPT-4: G0008 04/24/2016 FLU VACC 4 YA 3 YRS PLUS IM SNOMED CT: 49195107 CPT-4: 86244 04/24/2016 Vital Signs Date Vital 09/01/2017 Blood Pressure 1: 148/84 Code : 8480-6 BMI: 25.9 Code : 01026-5 Heart Rate 1 : 81 bpm Height: 6' Respiratory Rate: 20 bpm SpO2: 99% Weight: 191 lbs 08/18/2017 Blood Pressure 1: 122/66 Code : 8480-6 BMI: 26.3 Code : 85939-8 Heart Rate 1 : 85 bpm Height: 6' SpO2: 95% Temperature: 36.6 (C) / 97.8 (F) Weight: 194 lbs 08/03/2017 Blood Pressure 1: 126/64 Code : 8480-6 BMI: 27.0 Code : 86662-1 Heart Rate 1 : 92 bpm Height: 6' SpO2: 94% Temperature: 37.4 (C) / 99.3 (F) Weight: 199 lbs 07/05/2017 Blood Pressure 1: 134/66 Code : 8480-6 BMI: 27.1 Code : 60334-0 Heart Rate 1 : 72 bpm Height: 6' SpO2: 96% Weight: 200 lbs 04/23/2017 Blood Pressure 1: 130/72 Code : 8480-6 BMI: 25.9 Code : 13930-9 Heart Rate 1 : 56 bpm Height: 6' SpO2: 97% Weight: 191 lbs 04/08/2017 Blood Pressure 1: 116/64 Code : 8480-6 BMI: 25.9 Code : 80196-3 Heart Rate 1 : 71 bpm Height: 6' SpO2: 97% Weight: 191 lbs 01/21/2017 Blood Pressure 1: 132/74 Code : 8480-6 BMI: 26.0 Code : 75086-4 Heart Rate 1 : 54 bpm Height: 6' SpO2: 94% Weight: 192 lbs 10/19/2016 Blood Pressure 1: 132/64 Code : 8480-6 BMI: 27.7 Code : 21317-2 Heart Rate 1 : 77 bpm Height: 6' SpO2: 98% Weight: 204 lbs 07/23/2016 Blood Pressure 1: 130/62 Code : 8480-6 BMI: 27.8 Code : 21938-7 Heart Rate 1 : 95 bpm Height: 6' SpO2: 97% Weight: 205 lbs 05/19/2016 Blood Pressure 1: 118/70 Code : 8480-6 BMI: 27.9 Code : 51586-2 Heart Rate 1 : 76 bpm Height: 6' SpO2: 97% Weight: 206 lbs 04/21/2016 Blood Pressure 1: 130/70 Code : 8480-6 BMI: 27.9 Code : 72371-1 Heart Rate 1 : 76 bpm Height: 6' SpO2: 96% Weight: 206 lbs 03/26/2016 Blood Pressure 1: 130/78 Code : 8480-6 BMI: 27.7 Code : 45400-5 Heart Rate 1 : 61 bpm Height: 6' SpO2: 98% Weight: 204 lbs 01/27/2016 Blood Pressure 1: 124/80 Code : 8480-6 BMI: 27.5 Code : 07996-3 Heart Rate 1 : 78 bpm Height: 6' SpO2: 96% Weight: 203 lbs 10/28/2015 Blood Pressure 1: 138/78 Code : 8480-6 BMI: 27.7 Code : 74971-3 Heart Rate 1 : 76 bpm Height: 6' SpO2: 98% Weight: 204 lbs 08/27/2015 Blood Pressure 1: 128/56 Code : 8480-6 BMI: 27.4 Code : 55486-2 Heart Rate 1 : 49 bpm Height: 6' SpO2: 98% Weight: 202 lbs 06/06/2015 Blood Pressure 1: 128/62 Code : 8480-6 BMI: 26.0 Code : 76029-8 Heart Rate 1 : 80 bpm Height: 6' SpO2: 98% Weight: 192 lbs 04/30/2015 Blood Pressure 1: 138/64 Code : 8480-6 BMI: 19.2 Code : 49105-6 Heart Rate 1 : 71 bpm Height: 6' SpO2: 94% Weight: 141 lbs 8 oz 04/23/2015 Blood Pressure 1: 128/64 Code : 8480-6 BMI: 25.6 Code : 52483-1 Heart Rate 1 : 66 bpm Height: 6' SpO2: 98% Weight: 189 lbs 03/04/2015 Blood Pressure 1: 132/50 Code : 8480-6 BMI: 25.8 Code : 93817-3 Heart Rate 1 : 63 bpm Height: 6' SpO2: 97% Weight: 190 lbs 12/04/2014 Blood Pressure 1: 112/68 Code : 8480-6 BMI: 26.9 Code : 84631-0 Heart Rate 1 : 68 bpm Height: 6' Weight: 198 lbs Functional Status No Functional Status data History of Present Illness Symptom Name Status Result Effective Date Notes cough Quality acute None cough Quality hacking [...] data Encounters Encounter Performer Location Codes Date ([id number]) [id number] EST. PATIENT, LEVEL III Diagnosis: Essential (primary) hypertension[ICD10: I10] Diagnosis: Type 2 diabetes mellitus without complications[ICD10: E11.9] Diagnosis: Cough[ICD10: R05] [facility] CPT-4: 45847 09/01/2017 46934 EST. PATIENT, LEVEL IV Diagnosis: Cough[ICD10: R05] Diagnosis: Acute bronchitis due to other specified organisms[ICD10: J20.8] [facility] CPT-4: 04627 08/18/2017 [id number]) 82909 EST. PATIENT, LEVEL III Diagnosis: Cough[ICD10: R05] Diagnosis: Acute bronchitis due to other specified organisms[ICD10: J20.8] Ayana Iyer MD, [facility] CPT-4: 87482 08/03/2017 ([id number]) 07223 EST. PATIENT, LEVEL III Diagnosis: Essential (primary) hypertension[ICD10: I10] Shalini Iyer MD, [facility] CPT-4: 91010 07/05/2017 ([id number]) 22337 EST. PATIENT, LEVEL IV Diagnosis: Essential (primary) hypertension[ICD10: I10] Diagnosis: Type 2 diabetes mellitus without complications[ICD10: E11.9] Diagnosis: Hypothyroidism, unspecified[ICD10: E03.9] Shalini Iyer MD, [facility] CPT-4: 91133 04/23/2017 ([id number]) 83585 EST. PATIENT, LEVEL III Diagnosis: Other allergic rhinitis[ICD10: J30.89] Shalini Iyer MD, [facility] CPT-4: 06507 04/08/2017 ([id number]) 26418 EST. PATIENT, LEVEL IV Diagnosis: Type 2 diabetes mellitus without complications[ICD10: E11.9] Diagnosis: Essential (primary) hypertension[ICD10: I10] Diagnosis: Hypothyroidism, unspecified[ICD10: E03.9] Diagnosis: Allergic rhinitis due to pollen[ICD10: J30.1] Shalini Iyer MD, [facility] CPT-4: 45677 01/21/2017 ([id number]) 60285 EST. PATIENT, LEVEL IV Diagnosis: Essential (primary) hypertension[ICD10: I10] Diagnosis: Mixed hyperlipidemia[ICD10: E78.2] Diagnosis: Hypothyroidism, unspecified[ICD10: E03.9] Diagnosis: Pain in left knee[ICD10: M25.562] Diagnosis: Type 2 diabetes mellitus without complications[ICD10: E11.9] Shalini Iyer MD, [facility] CPT-4: 76769 10/19/2016 ([id number]) 06645 EST. PATIENT, LEVEL IV Diagnosis: Essential (primary) hypertension[ICD10: I10] Diagnosis: Type 2 diabetes mellitus without complications[ICD10: E11.9] Diagnosis: Hypothyroidism, unspecified[ICD10: E03.9] Diagnosis: Mixed hyperlipidemia[ICD10: E78.2] Shalini Iyer MD, [facility] CPT-4: 00628 07/23/2016 ([id number]) 49698 EST. PATIENT, LEVEL III Diagnosis: Acute recurrent maxillary sinusitis[ICD10: J01.01] Shalini Iyer MD [facility] CPT-4: 42851 05/19/2016 ([id number]) 70080 EST. PATIENT, LEVEL III Diagnosis: Type 2 diabetes mellitus without complications[ICD10: E11.9] Diagnosis: Essential (primary) hypertension[ICD10: I10] Diagnosis: Allergic rhinitis due to pollen[ICD10: J30.1] Shalini Iyer MD, [facility] CPT-4: 99184 04/21/2016 ([id number]) 30076 EST. PATIENT, LEVEL III Diagnosis: Pain in left knee[ICD10: M25.562] Diagnosis: Localized edema[ICD10: R60.0] Shalini Iyer MD [facility] CPT-4: 77389 03/26/2016 ([id number]) 67609 EST. PATIENT, LEVEL IV Diagnosis: Essential (primary) hypertension[ICD10: I10] Diagnosis: Type 2 diabetes mellitus without complications[ICD10: E11.9] Diagnosis: Pain in right shoulder[ICD10: M25.511] Shalini Iyer MD, [facility] CPT-4: 46427 01/27/2016 ([id number]) 30177 EST. PATIENT, LEVEL IV Diagnosis: Essential (primary) hypertension[ICD10: I10] Diagnosis: Allergic rhinitis due to pollen[ICD10: J30.1] Diagnosis: Type 2 diabetes mellitus without complications[ICD10: E11.9] Diagnosis: Hypothyroidism, unspecified[ICD10: E03.9] Shalini Iyer MD, [facility] CPT-4: 00156 10/28/2015 ([id number]) 17673 EST. PATIENT, LEVEL IV Diagnosis: Essential (primary) hypertension[ICD10: I10] Diagnosis: Type 2 diabetes mellitus without complications[ICD10: E11.9] Diagnosis: Hypothyroidism, unspecified[ICD10: E03.9] Diagnosis: Lichen planus, unspecified[ICD10: L43.9] Shalini Iyer MD, [facility] CPT-4: 55952 08/27/2015 ([id number]) 66921 EST. PATIENT, LEVEL III Diagnosis: Cervical disc disorder with radiculopathy, unspecified cervical region[ICD10: M50.10] Diagnosis: Type 2 diabetes mellitus without complications[ICD10: E11.9] Diagnosis: Essential (primary) hypertension[ICD10: I10] Shalini Iyer MD, [facility] CPT-4: 67191 06/06/2015 ([id number]) 51481 EST. PATIENT, LEVEL III Diagnosis: Cervicalgia[ICD10: M54.2] Shalini Iyer MD, [facility] CPT-4: 54466 04/30/2015 ([id number]) 88631 EST. PATIENT, LEVEL III Diagnosis: Essential (primary) hypertension[ICD10: I10] Diagnosis: Type 2 diabetes mellitus without complications[ICD10: E11.9] Diagnosis: Primary osteoarthritis, unspecified site[ICD10: M19.91] Shalini Iyer MD, [facility] CPT-4: 85463 04/23/2015 ([id number]) 11429 EST. PATIENT, LEVEL IV Diagnosis: ESSENTIAL HYPERTENSION[ICD9: 401.9] Diagnosis: DIABETES TYPE II[ICD9: 250.00] Diagnosis: Osteoarthritis[ICD9: 715.90] Shalini Iyer MD, [facility] CPT-4: 93756 03/04/2015 ([id number]) OFFICE VISIT, NEW - LEVEL 4 Diagnosis: ESSENTIAL HYPERTENSION[ICD9: 401.9] Diagnosis: Hypothyroidism[ICD9: 244.9] Diagnosis: DIABETES TYPE II[ICD9: 250.00] Diagnosis: ACTINIC KERATOSIS[ICD9: 702.0] Shalini Iyer MD, [facility] CPT-4: 54485 12/04/2014 Plan of Care Planned Activity Notes Codes Status Date Visit Plan: Hypertension - well controlled - [...] Cough - improved - finish antibiotics. 09/01/2017 Patient Education: Patient Medication Summary Completed 09/01/2017 Visit Plan: Bronchitis - acute case of bronchitis identified. Pt has been given antibiotics, steroids as appropriate, and pt has been instructed to call if symptoms are not improved, or if symptoms acutely worsen. 08/18/2017 Appointment: Zenobia Desouza WPtel: [phone] [phone] (15 min) Moderate 08/18/2017 Patient Education: Patient Medication Summary Completed 08/18/2017 Visit Plan: Bronchitis - acute case of bronchitis identified. Pt has been given antibiotics, breathing treatments as appropriate, and pt has been instructed to call if symptoms are not improved, or if symptoms acutely worsen. 08/03/2017 Appointment: Ayana Iyer WPtel: [phone] (15 min) Moderate 08/03/2017 Patient Education: Patient Medication Summary Completed 08/03/2017 Visit Plan: Hypertension - well controlled - continue with current medications, continue with no added salt diet. Pt has been encouraged to exercise daily. The pt has been advised to call the office if there are any acute concerns about change in blood pressure readings at home. 07/05/2017 Appointment: Shalini Mitchell WPtel: [phone] [phone] (30 min) Complex 07/05/2017 Patient Education: Patient Medication Summary Completed 07/05/2017 Patient Education: Patient Medication Summary Completed 04/30/2017 Care Plan: %Hba1C [facility] : [address]-9 Pending 04/30/2017 Visit Plan: Hypertension - well [...] of control. 04/23/2017 Appointment: Shalini Mitchell WPtel: [phone] [phone] (30 min) Complex 04/23/2017 Patient Education: Patient [...] allergy spray. 04/08/2017 Appointment: [phone] [phone] (15 min) Moderate 04/08/2017 Patient Education: Patient [...] allergy spray. 01/21/2017 Appointment: Shalini Mitchell WPtel: [phone] [phone] (15 min) Moderate 01/21/2017 Patient Education: Patient Medication Summary Completed 01/21/2017 Appointment: Shalini Mitchell WPtel: [phone] [phone] (15 min) Moderate 01/18/2017 Visit Plan: Hypertension [...] symptoms persist 10/19/2016 Appointment: Shalini Mitchell WPtel: [address] [place], [place] [phone] (30 min) [facility] 10/19/2016 Patient Education: Patient Medication Summary Completed [...] medications. 07/23/2016 Appointment: Shalini Mitchell WPtel: [facility]4 [phone] 07/23/2016 Patient Education: Patient Medication Summary Completed 07/23/2016 Visit Plan: Sinusitis - Pt has acute infection - pain in face, maxillary region, Pt informed to use decongestant, RX given to patient, sinus rinses also recommended. Call if symptoms do not show improvement. Kenalog injection today in the office. 05/19/2016 Appointment: Shalini Mitchell WPtel: [facility]5 [phone] (15 min) Moderate 05/19/2016 Patient Education: Patient Medication Summary Completed 05/19/2016 Appointment: Injection 05/12/2016 Patient Education: Patient Medication Summary Completed 05/12/2016 Appointment: Injection 05/05/2016 Patient Education: Patient Medication Summary Completed 05/05/2016 Appointment: Shalini Mitchell WPtel: [facility]5 [phone] (30 min) Complex 05/01/2016 Appointment: Injection 04/24/2016 [...] allergy spray. 04/21/2016 Appointment: Shalini Mitchell WPtel: [facility]6 [id number] [place] [address] (30 min) Complex 04/21/2016 Patient Education: Patient [...] edema. 03/26/2016 Appointment: Shalini Mitchell WPtel: [phone] [phone] (15 min) Moderate 03/26/2016 Patient Education: Patient [...] controlled. Right shoulder pain-refer for PT at [facility] 01/27/2016 Appointment: (30 min) Complex 01/27/2016 [...] based on previous levels of control. 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 Lichen horkyu-gzneu-ax jail doxycycline per Dr Eduardo centeno-check labs- continue [...] Care Plan: COMPLETE CBC AUTOMATED LOINC : 31802-8 Ordered 12/04/2014 Instructions Comment . Hypertension - [...] controlled. Right shoulder pain-refer for PT at [facility] FASTING LABS ON WEDNESDAY AT [employer] FROM DR. COLÓN [...] symptoms persist FASTING LABS ON WEDNESDAY AT [employer] FROM DR. COLÓN [...] neural foraminal narrowing-wants to see Dr Aleisha Castellon will picker feeder a copy of his labs Ellie 180mg [...] based on previous levels of control. Lichen elyiyw-fkmgu-cs jail doxycycline per Dr Iyer-javi centeno-check labs-continue clobetasol Check fasting labs . [...] based on previous levels of control. 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 . Sinusitis - Pt has acute infection - pain in face, maxillary region, Pt informed to use decongestant, RX given to patient, sinus rinses also recommended. Call if symptoms do not show improvement. Kenalog injection today in the office. . Hypertension - well controlled - continue with current medications, continue with no added salt diet. Pt has been encouraged to exercise daily. The pt has been advised to call the office if there are any acute concerns about change in blood pressure readings at home. Cervical stenosis-surgery scheduled with Dr Moraes in June
--- OUTSIDE RECORDS SUMMARY | 2018-04-26 12:01 | XMS REPORT | CCD ---
Author Author Shalini Mitchell MD, [facility] Address [address] [place] [address] Phone Care Team Providers Care Snow Maker Name Role Phone PP Unavailable CCM Unavailable Summary Purpose Interface Exchange Insurance Providers Payer name Policy type / Coverage type Covered republican ID Effective Begin Date Effective End Date WPS Medicare Part B Medicare Part B [id number] Unknown Unknown [facility] Medicare Part B [id number] Unknown Unknown Family History Family History data not found Social History Social History Element Codes Description Effective Dates Marital status Unknown 12/04/2014 Number of children Unknown 3 12/04/2014 Employment Unknown Retired [employer] 12/04/[address]: 4649750 Quit over 10 years ago 12/04/[address]: 096131143 Never drinks alcohol 12/04/2014 Allergies, Adverse Reactions, [...] Instructions Zithromax Z-Anil 250 mg tablet RxNorm: 309078 1 Tablet(s) PO UD 08/30/2017 09/03/2017 Active zpack Tessalon 200 mg capsule RxNorm: 390716 1 Capsule(s) PO TID as needed 08/23/2017 09/11/2017 Active Tessalon 200 mg capsule RxNorm: 057617 1 Capsule(s) PO TID as needed 08/23/2017 08/22/2017 Inactive prednisone 10 mg tablet RxNorm: 466728 Tablet(s) PO UD 2017 No Stop Date Active 6,5,4,3,2,1 doxycycline hyclate 100 mg capsule RxNorm: 7262956 1 Capsule(s) PO BID 08/18/2017 08/27/2017 Inactive Phenergan-Codeine 6.25 mg-10 mg/5 mL syrup RxNorm: 381901 5 to 10 ml PO Q6 as needed 08/17/2017 08/22/2017 Inactive Zithromax Z-Anil 250 mg tablet RxNorm: 354785 1 Tablet(s) PO UD 2017 08/17/2017 Inactive zpack ceftriaxone 500 mg solution for injection RxNorm: 6042593 Inj 08/03/2017 08/03/2017 Inactive cephalexin 500 mg capsule RxNorm: 405701 1 Capsule(s) PO QID 08/09/2017 Inactive Kenalog 40 mg/mL suspension for injection RxNorm: 9097136 1 Milliliter(s) Inj 08/03/2017 08/03/2017 Inactive losartan 50 mg tablet RxNorm: 585335 TAKE ONE TABLET BY MOUTH ONCE DAILY IN THE MORNING 08/02/2017 No Stop Date Active simvastatin 10 mg tablet RxNorm: 297688 TAKE ONE TABLET BY MOUTH ONCE DAILY 08/02/2017 No Stop Date Active levothyroxine 137 mcg tablet RxNorm: 476414 TAKE ONE TABLET BY MOUTH ONCE DAILY 07/26/2017 No Stop Date Active Flonase Allergy Relief 50 mcg/actuation nasal spray, suspension RxNorm: 0217694 USE TWO SPRAY(S) IN EACH NOSTRIL ONCE DAILY 06/28/2017 No Stop Date Active baclofen 10 mg tablet RxNorm: 906592 TAKE ONE TABLET BY MOUTH THREE TIMES DAILY NEEDED FOR MUSCLE SPASM 06/28/2017 No Stop Date Active Kenalog 40 mg/mL suspension for injection RxNorm: 1541915 1 Milliliter(s) Inj 04/08/2017 04/08/2017 Inactive doxycycline hyclate 100 mg tablet RxNorm: 837749 1 Tablet(s) PO BID 04/01/2017 04/10/2017 Inactive PLEASE GIVE 90 DAY SUPPLY losartan 50 mg tablet RxNorm: 859568 TAKE ONE TABLET BY MOUTH ONCE DAILY IN THE MORNING 02/01/2017 07/30/2017 Inactive levothyroxine 137 mcg tablet RxNorm: 089065 1 Tablet(s) PO daily 01/22/2017 07/20/2017 Inactive hold until he calls for fill- using samples from office metoprolol succinate ER 25 mg tablet,extended release 24 hr RxNorm: 573108 1 Tablet(s) PO daily 01/11/2017 01/05/2018 Active tamsulosin 0.4 mg capsule RxNorm: 710503 TAKE ONE CAPSULE BY MOUTH ONCE DAILY 01/11/2017 10/07/2017 Active simvastatin 10 mg tablet RxNorm: 898556 TAKE ONE TABLET BY MOUTH ONCE DAILY 12/17/2016 06/14/2017 Inactive levothyroxine 150 mcg tablet RxNorm: 349289 1 Tablet(s) PO daily 09/24/2016 01/21/2017 Inactive doxycycline hyclate 100 mg tablet RxNorm: 162840 1 Tablet(s) PO daily 07/30/2016 01/25/2017 Inactive PLEASE GIVE 90 DAY SUPPLY doxycycline hyclate 100 mg tablet RxNorm: 619196 1 Tablet(s) PO daily 07/27/2016 07/29/2016 Inactive PLEASE GIVE 90 DAY SUPPLY quinine 324 mg capsule RxNorm: 819923 1 Capsule(s) PO HS PRN No Stop Date Active LEG CRAMPS doxycycline hyclate 100 mg tablet RxNorm: 507183 1 Tablet(s) PO daily 05/29/2016 07/26/2016 Inactive PLEASE GIVE 90 DAY SUPPLY Kenalog 40 mg/mL suspension for injection RxNorm: 9302852 Milliliter(s) Inj 05/19/2016 05/19/2016 Inactive Levaquin 500 mg tablet RxNorm: 427748 1 Tablet(s) PO daily 07/201505/25/2016 Inactive Zithromax Z-Anil 250 mg tablet RxNorm: 958642 1 Tablet(s) PO UD 05/14/2016 09/09/2016 Inactive zpack Kenalog 40 mg/mL suspension for injection RxNorm: 8375840 Milliliter(s) Inj 05/12/2016 05/12/2016 Inactive Zithromax Z-Anil 250 mg tablet RxNorm: 340929 1 Tablet(s) PO UD 05/08/2016 05/12/2016 Inactive zpack Flonase Allergy Relief 50 mcg/actuation nasal spray, suspension RxNorm: 3210815 2 [place] NASAL daily 04/21/20162016 Inactive levothyroxine 150 mcg tablet RxNorm: 891971 1 Tablet(s) PO daily 04/21/2016 09/23/2016 Inactive baclofen 10 mg tablet RxNorm: 940174 1 Tablet(s) PO TID as needed for muscle spasms 04/10/2016 11/05/2016 Inactive Flonase Allergy Relief 50 mcg/actuation nasal spray, suspension RxNorm: 1316000 2 [place] NASAL daily 01/27/20162015 Inactive losartan 50 mg tablet RxNorm: 583741 1 Tablet(s) PO QAM 201501/09/2017 Inactive magnesium oxide 400 mg tablet RxNorm: 730672 1 Tablet(s) PO daily 01/16/2016 01/09/2017 Inactive omega 1-min-bsk-fish oil 300 mg-1,000 mg capsule,delayed release RxNorm: 1 Capsule(s) PO daily 01/16/2016 01/09/2017 Inactive ask pt if this is needed- he may use OTC levothyroxine 175 mcg tablet RxNorm: 265156 1 Tablet(s) PO daily 01/16/2016 04/20/2016 Inactive metoprolol succinate ER 25 mg tablet,extended release 24 hr RxNorm: 374407 1 Tablet(s) PO daily 01/16/2016 01/09/2017 Inactive baclofen 10 mg tablet RxNorm: 801141 1 Tablet(s) PO TID as needed for muscle spasms 01/16/2016 04/09/2016 Inactive omega 6-pwa-dag-fish oil 300 mg-1,000 mg capsule,delayed release RxNorm: 1 Capsule(s) PO daily 01/16/2016 01/15/2016 Inactive ask pt if this is needed- he may use OTC simvastatin 10 mg tablet RxNorm: 006995 1 Tablet(s) PO daily 12/16/2016 Inactive tamsulosin 0.4 mg capsule RxNorm: 097247 TAKE ONE CAPSULE BY MOUTH ONCE DAILY 01/05/2016 01/10/2017 Inactive levothyroxine 150 mcg tablet RxNorm: 297236 1 Tablet(s) PO daily 12/05/2015 12/04/2015 Inactive levothyroxine 150 mcg tablet RxNorm: 437695 1 Tablet(s) PO daily 12/05/2015 01/15/2016 Inactive metoprolol succinate ER 25 mg tablet,extended release 24 hr RxNorm: 947909 1 Tablet(s) PO daily 10/22/2015 01/15/2016 Inactive losartan 50 mg tablet RxNorm: 240932 1 Tablet(s) PO QAM 201501/15/2016 Inactive levothyroxine 175 mcg tablet RxNorm: 502272 1 Tablet(s) PO daily 09/09/2015 12/04/2015 Inactive doxycycline hyclate 100 mg tablet RxNorm: 610384 1 Tablet(s) PO daily 08/27/2015 01/15/2016 Inactive PLEASE GIVE 90 DAY SUPPLY doxycycline hyclate 100 mg tablet RxNorm: 347985 1 Tablet(s) PO daily 08/27/2015 08/26/2015 Inactive chlorzoxazone 500 mg tablet RxNorm: 329995 1 Tablet(s) PO Q6 as needed muscle spasms 08/15/2015 03/11/2016 Inactive chlorzoxazone 500 mg tablet RxNorm: 888574 1 Tablet(s) PO Q6 as needed muscle spasms 08/15/2015 08/14/2015 Inactive ketoconazole 2 % shampoo RxNorm: 200829 1 Application TOP UD 08/04/2015 Inactive ketoconazole 2 % shampoo RxNorm: 879452 1 Application TOP UD 01/15/2016 Inactive clobetasol 0.05 % topical solution RxNorm: 900782 1 Application TOP daily 08/01/2015 07/31/2015 Inactive clobetasol 0.05 % topical solution RxNorm: 549681 1 Application TOP daily 08/01/2015 01/15/2016 Inactive levothyroxine 175 mcg tablet RxNorm: 748286 1 Tablet(s) PO daily 07/22/2015 09/08/2015 Inactive doxycycline hyclate 100 mg tablet RxNorm: 810381 1 Tablet(s) PO daily 07/17/2015 08/15/2015 Inactive levothyroxine 175 mcg tablet RxNorm: 128226 Tablet(s) PO every other day 07/17/2015 07/21/2015 Inactive Zithromax Z-Anil 250 mg tablet RxNorm: 358509 1 Tablet(s) PO 05/07/2016 Inactive 1 zpack finasteride 5 mg tablet RxNorm: 106194 1 Tablet(s) PO daily 12/27/2015 Inactive simvastatin 10 mg tablet RxNorm: 897627 1 Tablet(s) PO daily 12/27/2015 Inactive clopidogrel 75 mg tablet RxNorm: 828210 1 Tablet(s) PO daily 01/15/2016 Inactive metoprolol succinate ER 25 mg tablet,extended release 24 hr RxNorm: 210575 1 Tablet(s) PO daily 07/01/2015 10/21/2015 Inactive levothyroxine 150 mcg tablet RxNorm: 224626 1 Tablet(s) PO daily 07/01/2015 07/21/2015 Inactive tamsulosin 0.4 mg capsule RxNorm: 312201 1 Capsule(s) PO daily 07/01/2015 12/27/2015 Inactive losartan 50 mg tablet RxNorm: 901030 1 Tablet(s) PO QAM 201410/17/2015 Inactive levothyroxine 150 mcg tablet RxNorm: 383328 1 Tablet(s) PO daily 07/01/2015 06/30/2015 Inactive Zithromax Z-Anil 250 mg tablet RxNorm: 240972 1 Tablet(s) PO 03/201507/09/2015 Inactive 1 zpack Januvia 100 mg tablet RxNorm: 792244 1/2 Tablet(s) PO BID 201405/22/2015 Inactive Januvia 50 mg tablet RxNorm: 082802 1 Tablet(s) PO BID 201404/22/2015 Inactive chlorzoxazone 500 mg tablet RxNorm: 176446 1 Tablet(s) PO Q6 as needed muscle spasms 01/21/2015 01/20/2015 Inactive baclofen 10 mg tablet RxNorm: 950332 1 Tablet(s) PO TID as needed for muscle spasms 01/21/2015 06/30/2015 Inactive chlorzoxazone 500 mg tablet RxNorm: 013135 1 Tablet(s) PO Q6 as needed muscle spasms 01/21/2015 03/03/2015 Inactive Vitamin D3 2,000 unit tablet RxNorm: 207113 Tablet(s) PO BID No Stop Date Active [SAVINGS FOR NON-COVERED DRUGS -- BIN:[id number], PCN: [id number], Group: [id number] , ID# [id number], Questions: . THIS IS NOT INSURANCE.] Claritin 10 mg tablet RxNorm: 181554 1 Tablet(s) PO daily No Start Date Active aspirin 81 mg tablet RxNorm: 138481 Tablet(s) PO daily No Start Date Active Centrum Silver oral RxNorm: 98481 oral No Start Date Active Calcium Citrate + D 600 mg RxNorm: 630mg PO daily No Start Date Active sodium chloride oral RxNorm: oral No Start Date Active Vitamin C 500 mg chewable tablet RxNorm: 935273 1 Tablet(s) PO No Start Date Active Vitamin B12 Oral RxNorm: oral No Start Date Active Fish Oil (with DHA-EPA) capsule RxNorm: oral No Start Date 01/15/2016 Inactive clopidogrel 75 mg tablet RxNorm: 855237 1 Tablet(s) PO daily No Start Date 06/30/2015 Inactive metoprolol succinate ER 25 mg tablet,extended release 24 hr RxNorm: 016243 1 Tablet(s) PO daily No Start Date 2014 Inactive simvastatin 10 mg tablet RxNorm: 346936 1 Tablet(s) PO daily No Start Date 06/30/2015 Inactive Claritin 10 mg tablet RxNorm: 823977 1 Tablet(s) PO daily No Start Date 07/16/2015 Inactive levothyroxine 175 mcg tablet RxNorm: 663097 Tablet(s) PO every other day No Start Date 06/30/2015 Inactive Vitamin D3 2,000 unit tablet RxNorm: 624288 Tablet(s) PO daily No Start Date 12/03/2014 Inactive losartan 50 mg tablet RxNorm: 661953 1 Tablet(s) PO QAM No Start Date 06/30/2015 Inactive magnesium oxide 400 mg tablet RxNorm: 326716 1 Tablet(s) PO daily No Start Date 01/15/2016 Inactive Phenergan-Codeine 6.25 mg-10 mg/5 mL syrup RxNorm: 000618 5 to 10 ml PO Q6 No Start Date 08/16/2017 Inactive baclofen 10 mg tablet RxNorm: 268573 1 Tablet(s) PO TID as needed for muscle spasms No Start Date 01/20/2015 Inactive finasteride 5 mg tablet RxNorm: 480650 1 Tablet(s) PO daily No Start Date 06/30/2015 Inactive quinine 324 mg capsule RxNorm: 150384 1 Capsule(s) PO HS PRN No Start Date 06/14/2016 Inactive LEG CRAMPS Vitamin D3 (with calcium carbonate) oral RxNorm: 818696 oral No Start Date 01/15/2016 Inactive Zithromax Z-Anil 250 mg tablet RxNorm: 830447 1 Tablet(s) PO No Start Date 06/25/2015 Inactive 1 zpack levothyroxine 150 mcg tablet RxNorm: 252386 Tablet(s) PO every other day No Start Date 06/30/2015 Inactive Januvia 50 mg tablet RxNorm: 355346 1 Tablet(s) PO daily No Start Date 03/06/2015 Inactive fluticasone 50 mcg/actuation nasal spray,suspension RxNorm: 929938 1 [place] NASAL daily No Start Date 01/15/2016 Inactive tamsulosin ER 0.4 mg capsule,extended release 24 hr RxNorm: 017027 1 Capsule(s) PO daily No Start Date 06/30/2015 Inactive Ellie 180 mg tablet RxNorm: 170794 1 Tablet(s) PO daily No Start Date 01/15/2016 Inactive Medication Administered Medication Codes Instructions Start Date Status ceftriaxone 500 mg solution for injection RxNorm: 9421177 08/03/2017 No longer Active Kenalog 40 mg/mL suspension for injection RxNorm: 9044532 1Milliliter 08/03/2017 No longer Active Kenalog 40 mg/mL suspension for injection RxNorm: 0311556 1Milliliter 04/08/2017 No longer Active Kenalog 40 mg/mL suspension for injection RxNorm: 6083341 Milliliter 05/19/2016 No longer Active Kenalog 40 mg/mL suspension for injection RxNorm: 4630489 Milliliter 05/12/2016 No longer Active Immunizations Vaccine Codes Date Status Influenza CVX: 141 04/01/2017 completed Pneumococcal (Adult) CVX: 33 05/05/2016 completed Influenza CVX: 141 04/24/2016 completed Influenza CVX: 141 04/17/2015 completed Pneumococcal CVX: 133 04/17/2015 completed Influenza CVX: 141 05/19/2014 completed Zoster CVX: 121 04/18/2006 completed Pneumococcal CVX: 33 06/18/2005 completed Assessments Condition Codes Effective Dates Acute bronchitis due to other specified organisms ICD-10: J20.8 ICD-9: 466.0 08/18/2017 Cough ICD-10: R05 ICD-9: 786.2 08/18/2017 Essential (primary) hypertension ICD-10: I10 ICD-9: 401.1 [...] Reason For Visit Effective Dates Notes cough 08/18/2017 cough 08/03/2017 diabetes mellitus 07/05/2017 [...] Code Item Item Code Result Date %Hba1C Ccm514 % HbA1c 90478-8 6.5 % 04/28/2017 %Hba1C Bip701 Gluc Ave 140 mg/dL 04/28/2017 Lipid Ord30 [...] 29.5 pg 04/28/2017 Cbc With Differential Ord2 Menard% 14.0 % 04/28/2017 Cbc With Differential Ord2 MCHC [...] 1.07 K/ul 04/28/2017 Cbc With Differential Ord2 Menard ABS# 1.0 K/ul 04/28/2017 Cbc With Differential Ord2 Eos ABS# 0.2 K/ul 04/28/2017 Cbc With Differential Ord2 Baso ABS# 0.0 K/ul 04/28/2017 Free T4 Pwg825 FREE T4 1.07 ng/dL 04/28/2017 Comp Metabolic Yoz105 NA 140 mEq/L 04/28/2017 Comp Metabolic Uvk526 K 4.6 mEq/L 04/28/2017 Comp Metabolic Qqa303 CL 104 mEq/L 04/28/2017 Comp Metabolic Slb701 CO2 27.0 mEq/L 04/28/2017 Comp Metabolic Jlu161 ANION GAP 14 04/28/2017 Comp Metabolic Htu880 GLUCOSE 141 mg/dL 04/28/2017 Comp Metabolic Txf450 Creat 1.0 mg/dL 04/28/2017 Comp Metabolic Ata575 eGFR 79 ml/min/1.73m2 04/28/2017 Comp Metabolic Wnv475 BUN 26 mg/dL 04/28/2017 Comp Metabolic Xwb029 B/C Ratio 26.8 Ratio 04/28/2017 Comp Metabolic Mbk778 CALCIUM 9.4 mg/dL 04/28/2017 Comp Metabolic Xkc627 ALK PHOS 66 U/L 04/28/2017 Comp Metabolic Zem762 AST(SGOT) 21 U/L 04/28/2017 Comp Metabolic Aui726 ALT(SGPT) 20 U/L 04/28/2017 Comp Metabolic Wuy685 BILI T 1.3 mg/dL 04/28/2017 Comp Metabolic Env469 ALBUMIN 4.1 g/dL 04/28/2017 Comp Metabolic Ett887 TPRO 6.3 g/dL 04/28/2017 Comp Metabolic Ihw615 GLOB 2.2 g/dL 04/28/2017 Comp Metabolic Mvk703 A/G Ratio 1.9 Ratio 04/28/2017 Comp Metabolic Kqb209 Osmo 287 mOsmo 04/28/2017 %Hba1C Cnj157 % HbA1c 08375-3 6.6 % 01/22/2017 %Hba1C Fni907 Gluc Ave 143 mg/dL 01/22/2017 Tsh Ord6 [...] 30.2 pg 01/22/2017 Cbc With Differential Ord2 Menard% 14.1 % 01/22/2017 Cbc With Differential Ord2 [...] 1.01 K/ul 01/22/2017 Cbc With Differential Ord2 Menard ABS# 0.9 K/ul 01/22/2017 Cbc With Differential Ord2 Eos ABS# 0.2 K/ul 01/22/2017 Cbc With Differential Ord2 Baso ABS# 0.1 K/ul 01/22/2017 Comp Metabolic Xcq164 NA 140 mEq/L 01/22/2017 Comp Metabolic Vdk762 K 4.3 mEq/L 01/22/2017 Comp Metabolic Upc285 CL 104 mEq/L 01/22/2017 Comp Metabolic Cle000 CO2 29.0 mEq/L 01/22/2017 Comp Metabolic Syr746 ANION GAP 11 01/22/2017 Comp Metabolic Hgf982 GLUCOSE 146 mg/dL 01/22/2017 Comp Metabolic Dsa191 Creat 0.8 mg/dL 01/22/2017 Comp Metabolic Ljp355 eGFR 100 ml/min/1.73m2 01/22/2017 Comp Metabolic Puu544 BUN 19 mg/dL 01/22/2017 Comp Metabolic Pqs022 B/C Ratio 24.1 Ratio 01/22/2017 Comp Metabolic Jqy582 CALCIUM 9.2 mg/dL 01/22/2017 Comp Metabolic Mel506 ALK PHOS 60 U/L 01/22/2017 Comp Metabolic Lor948 AST(SGOT) 18 U/L 01/22/2017 Comp Metabolic Uay495 ALT(SGPT) 17 U/L 01/22/2017 Comp Metabolic Xio685 BILI T 0.6 mg/dL 01/22/2017 Comp Metabolic Lyn677 ALBUMIN 3.7 g/dL 01/22/2017 Comp Metabolic Cqc769 TPRO 5.8 g/dL 01/22/2017 Comp Metabolic Iil605 GLOB 2.1 g/dL 01/22/2017 Comp Metabolic Rfx270 A/G Ratio 1.7 Ratio 01/22/2017 Comp Metabolic Ljp604 Osmo 284 mOsmo 01/22/2017 Lipid Ord30 CHOL 126 mg/dL 01/22/2017 Lipid Ord30 HDL 43.0 mg/dl 01/22/2017 Lipid Ord30 TRIG 111 mg/dL 01/22/2017 Lipid Ord30 LDL 61 mg/dL 01/22/2017 Lipid Ord30 C/HDL 2.9 Ratio 01/22/2017 Free T4 Yuo312 FREE T4 0.96 ng/dL 01/22/2017 Comp Metabolic Joj877 NA 141 mEq/L 10/23/2016 Comp Metabolic Mvg812 K 4.3 mEq/L 10/23/2016 Comp Metabolic Ghb491 CL 104 mEq/L 10/23/2016 Comp Metabolic Psq554 CO2 29.0 mEq/L 10/23/2016 Comp Metabolic Unn990 ANION GAP 12 10/23/2016 Comp Metabolic Qxf620 GLUCOSE 156 mg/dL 10/23/2016 Comp Metabolic Vrn472 Creat 0.9 mg/dL 10/23/2016 Comp Metabolic Gnh279 eGFR 85 ml/min/1.73m2 10/23/2016 Comp Metabolic Azp055 BUN 19 mg/dL 10/23/2016 Comp Metabolic Hnt035 B/C Ratio 20.9 Ratio 10/23/2016 Comp Metabolic Ygg093 CALCIUM 9.2 mg/dL 10/23/2016 Comp Metabolic Otv226 ALK PHOS 72 U/L 10/23/2016 Comp Metabolic Dem621 AST(SGOT) 21 U/L 10/23/2016 Comp Metabolic Kcs121 ALT(SGPT) 19 U/L 10/23/2016 Comp Metabolic Ujj923 BILI T 0.8 mg/dL 10/23/2016 Comp Metabolic Ven878 ALBUMIN 3.8 g/dL 10/23/2016 Comp Metabolic Nzi149 TPRO 6.2 g/dL 10/23/2016 Comp Metabolic Gpd493 GLOB 2.4 g/dL 10/23/2016 Comp Metabolic Thm736 A/G Ratio 1.6 Ratio 10/23/2016 Comp Metabolic Hxi592 Osmo 287 mOsmo 10/23/2016 Cbc With Differential [...] 92.9 fl 10/23/2016 Cbc With Differential Ord2 Menard% 12.7 % 10/23/2016 Cbc With Differential Ord2 MCH 30.8 pg 10/23/2016 Cbc With Differential Ord2 Eos% 3.3 % 10/23/2016 Cbc With Differential Ord2 MCHC 33.1 pg 10/23/2016 Cbc With Differential Ord2 PLT 304 K/ul 10/23/2016 Cbc With Differential Ord2 Baso% 0.7 % 10/23/2016 Cbc With Differential Ord2 Neut ABS# 4.05 K/ul 10/23/2016 Cbc With Differential Ord2 RDW 13.5 % 10/23/2016 Cbc With Differential Ord2 Lymph ABS# 0.79 K/ul 10/23/2016 Cbc With Differential Ord2 Menard ABS# 0.7 K/ul 10/23/2016 Cbc With Differential Ord2 Eos ABS# 0.2 K/ul 10/23/2016 Cbc With Differential Ord2 Baso ABS# 0.0 K/ul 10/23/2016 Lipid Ord30 CHOL 134 mg/dL 10/23/2016 Lipid Ord30 HDL 42.0 mg/dl 10/23/2016 Lipid Ord30 TRIG 101 mg/dL 10/23/2016 Lipid Ord30 LDL 72 mg/dL 10/23/2016 Lipid Ord30 C/HDL 3.2 Ratio 10/23/2016 Free T4 Wwc994 FREE T4 0.99 ng/dL 10/23/2016 Tsh Ord6 hTSH II 0.70 uIU/mL 10/23/2016 %Hba1C Fqt184 % HbA1c 82467-8 7.0 % 10/23/2016 %Hba1C Rnm832 Gluc Ave 154 mg/dL 10/23/2016 Lipid Ord30 CHOL 136 mg/dL 07/24/2016 Lipid Ord30 HDL 52.0 mg/dl 07/24/2016 Lipid Ord30 TRIG 83 mg/dL 07/24/2016 Lipid Ord30 LDL 67 mg/dL 07/24/2016 Lipid Ord30 C/HDL 2.6 Ratio 07/24/2016 %Hba1C Pey129 % HbA1c 00398-6 7.1 % 07/24/2016 %Hba1C Nqx717 Gluc Ave 157 mg/dL 07/24/2016 Tsh Ord6 hTSH II 0.84 uIU/mL 07/24/2016 Cbc With Differential Ord2 WBC 7.56 K/ul 07/24/2016 Cbc With Differential Ord2 RBC 4.70 M/ul 07/24/2016 Cbc With Differential Ord2 HGB 14.4 g/dl 07/24/2016 Cbc With Differential Ord2 HCT 43.7 % 07/24/2016 Cbc With Differential Ord2 Neut% 63.2 % 07/24/2016 Cbc With Differential Ord2 MCV 93.0 fl 07/24/2016 Cbc With Differential Ord2 Lymph% 20.6 % 07/24/2016 Cbc With Differential Ord2 MCH 30.6 pg 07/24/2016 Cbc With Differential Ord2 Menard% 13.8 % 07/24/2016 Cbc With Differential Ord2 MCHC 33.0 pg 07/24/2016 Cbc With Differential Ord2 Eos% 2.0 % 07/24/2016 Cbc With Differential Ord2 Baso% 0.4 % 07/24/2016 Cbc With Differential Ord2 PLT 287 K/ul 07/24/2016 Cbc With Differential Ord2 RDW 15.0 % 07/24/2016 Cbc With Differential Ord2 Neut ABS# 4.78 K/ul 07/24/2016 Cbc With Differential Ord2 Lymph ABS# 1.56 K/ul 07/24/2016 Cbc With Differential Ord2 Menard ABS# 1.0 K/ul 07/24/2016 Cbc With Differential Ord2 Eos ABS# 0.2 K/ul 07/24/2016 Cbc With Differential Ord2 Baso ABS# 0.0 K/ul 07/24/2016 Comp Metabolic Vxd629 NA 139 mEq/L 07/24/2016 Comp Metabolic Pll250 K 4.5 mEq/L 07/24/2016 Comp Metabolic Ddj095 CL 103 mEq/L 07/24/2016 Comp Metabolic Uww038 CO2 30.0 mEq/L 07/24/2016 Comp Metabolic Vsn574 ANION GAP 11 07/24/2016 Comp Metabolic Oci980 GLUCOSE 161 mg/dL 07/24/2016 Comp Metabolic Tpf479 Creat 1.0 mg/dL 07/24/2016 Comp Metabolic Zda960 eGFR 80 ml/min/1.73m2 07/24/2016 Comp Metabolic Rwi352 BUN 23 mg/dL 07/24/2016 Comp Metabolic Iqv240 B/C Ratio 24.0 Ratio 07/24/2016 Comp Metabolic Mvc410 CALCIUM 9.4 mg/dL 07/24/2016 Comp Metabolic Xuv158 ALK PHOS 66 U/L 07/24/2016 Comp Metabolic Fyd110 AST(SGOT) 18 U/L 07/24/2016 Comp Metabolic Ezs467 ALT(SGPT) 22 U/L 07/24/2016 Comp Metabolic Xfq536 BILI T 1.1 mg/dL 07/24/2016 Comp Metabolic Wcg913 ALBUMIN 4.0 g/dL 07/24/2016 Comp Metabolic Fsf282 TPRO 6.4 g/dL 07/24/2016 Comp Metabolic Ygq800 GLOB 2.4 g/dL 07/24/2016 Comp Metabolic Lcb796 A/G Ratio 1.6 Ratio 07/24/2016 Comp Metabolic Wtv431 Osmo 285 mOsmo 07/24/2016 %Hba1C Sum343 % HbA1c 58106-3 7.0 % 03/11/2016 %Hba1C Xnt899 Gluc Ave 154 mg/dL 03/11/2016 Free T4 Zve684 FREE T4 0.92 ng/dL 03/11/2016 Tsh Ord6 hTSH II 0.92 uIU/mL 03/11/2016 %Hba1C Rdy201 % HbA1c 32791-2 7.1 % 11/27/2015 %Hba1C Cmv669 Gluc Ave 157 mg/dL 11/27/2015 Free T4 Nfd099 FREE T4 0.95 ng/dL 11/27/2015 Cbc With [...] 20.3 % 11/27/2015 Cbc With Differential Ord2 MCH 28.8 pg 11/27/2015 Cbc With Differential Ord2 Menard% 13.5 % 11/27/2015 Cbc With Differential Ord2 Eos% 3.9 % 11/27/2015 Cbc With Differential Ord2 MCHC 32.8 pg 11/27/2015 Cbc With Differential Ord2 PLT 304 K/ul 11/27/2015 Cbc With Differential Ord2 Baso% 1.0 % 11/27/2015 Cbc With Differential Ord2 Neut ABS# 3.81 K/ul 11/27/2015 Cbc With Differential Ord2 RDW 14.7 % 11/27/2015 Cbc With Differential Ord2 Lymph ABS# 1.26 K/ul 11/27/2015 Cbc With Differential Ord2 Menard ABS# 0.8 K/ul 11/27/2015 Cbc With Differential Ord2 Eos ABS# 0.2 K/ul 11/27/2015 Cbc With Differential Ord2 Baso ABS# 0.1 K/ul 11/27/2015 Cbc With Differential Ord2 New Analyzer Notice Please note new ref ranges starting 07-31-2015 due to implemntation of new five part differential hematolgy analyzer. 11/27/2015 Tsh Ord6 hTSH II 0.35 uIU/mL 11/27/2015 Comp Metabolic Bne865 NA 139 mEq/L 11/27/2015 Comp Metabolic Qxx384 K 4.4 mEq/L 11/27/2015 Comp Metabolic Qxy277 CL 105 mEq/L 11/27/2015 Comp Metabolic Von122 CO2 28.0 mEq/L 11/27/2015 Comp Metabolic Won131 ANION GAP 10 11/27/2015 Comp Metabolic Obk138 GLUCOSE 139 mg/dL 11/27/2015 Comp Metabolic Gct353 Creat 0.9 mg/dL 11/27/2015 Comp Metabolic Wjq434 eGFR 89 ml/min/1.73m2 11/27/2015 Comp Metabolic Vlt858 BUN 15 mg/dL 11/27/2015 Comp Metabolic Pco478 B/C Ratio 17.2 Ratio 11/27/2015 Comp Metabolic Oze181 CALCIUM 8.8 mg/dL 11/27/2015 Comp Metabolic Mxq576 ALK PHOS 78 U/L 11/27/2015 Comp Metabolic Oje053 AST(SGOT) 18 U/L 11/27/2015 Comp Metabolic Gjj756 ALT(SGPT) 16 U/L 11/27/2015 Comp Metabolic Sko891 BILI T 0.9 mg/dL 11/27/2015 Comp Metabolic Atz831 ALBUMIN 3.7 g/dL 11/27/2015 Comp Metabolic Yqt659 TPRO 6.2 g/dL 11/27/2015 Comp Metabolic Iuy648 GLOB 2.5 g/dL 11/27/2015 Comp Metabolic Uaj422 A/G Ratio 1.5 Ratio 11/27/2015 Comp Metabolic Zvb945 Osmo 281 mOsmo 11/27/2015 Lipid Ord30 CHOL 123 mg/dL 11/27/2015 Lipid Ord30 HDL 41.0 mg/dl 11/27/2015 Lipid Ord30 TRIG 130 mg/dL 11/27/2015 Lipid Ord30 LDL 56 mg/dL 11/27/2015 Lipid Ord30 C/HDL 3.0 Ratio 11/27/2015 Free T4 Bvh545 FREE T4 0.87 ng/dL 08/28/2015 Lipid Ord30 [...] 40.0 % 08/28/2015 Cbc With Differential Ord2 Lymph% 23.8 % 08/28/2015 Cbc With Differential Ord2 MCV 85.8 fl 08/28/2015 Cbc With Differential Ord2 MCH 27.9 pg 08/28/2015 Cbc With Differential Ord2 Menard% 12.7 % 08/28/2015 Cbc With Differential Ord2 [...] 1.53 K/ul 08/28/2015 Cbc With Differential Ord2 Menard ABS# 0.8 K/ul 08/28/2015 Cbc With Differential Ord2 Eos ABS# 0.3 K/ul 08/28/2015 Cbc With Differential Ord2 Baso ABS# 0.1 K/ul 08/28/2015 Cbc With Differential Ord2 New Analyzer Notice Please note new ref ranges starting 07-31-2015 due to implemntation of new five part differential hematolgy analyzer. 08/28/2015 %Hba1C Rdu716 % HbA1c 07995-2 6.9 % 08/28/2015 %Hba1C [id number] Gluc Ave 151 mg/dL 08/28/2015 Comp Metabolic Mnz549 NA 139 mEq/L 08/28/2015 Comp Metabolic Gfi018 K 4.5 mEq/L 08/28/2015 Comp Metabolic Wro735 CL 104 mEq/L 08/28/2015 Comp Metabolic Lfe831 CO2 28.0 mEq/L 08/28/2015 Comp Metabolic Jpy039 ANION GAP 12 08/28/2015 Comp Metabolic Ksq057 GLUCOSE 146 mg/dL 08/28/2015 Comp Metabolic Ggd575 Creat 1.0 mg/dL 08/28/2015 Comp Metabolic Sel936 eGFR 77 ml/min/1.73m2 08/28/2015 Comp Metabolic Wgh512 BUN 21 mg/dL 08/28/2015 Comp Metabolic Rer108 B/C Ratio 21.2 Ratio 08/28/2015 Comp Metabolic Dkp236 CALCIUM 9.3 mg/dL 08/28/2015 Comp Metabolic Wdu229 ALK PHOS 70 U/L 08/28/2015 Comp Metabolic Hma481 AST(SGOT) 18 U/L 08/28/2015 Comp Metabolic Vxe628 ALT(SGPT) 16 U/L 08/28/2015 Comp Metabolic Hrk915 BILI T 0.6 mg/dL 08/28/2015 Comp Metabolic Qwd039 ALBUMIN 4.0 g/dL 08/28/2015 Comp Metabolic Hve516 TPRO 6.4 g/dL 08/28/2015 Comp Metabolic Vmh485 GLOB 2.4 g/dL 08/28/2015 Comp Metabolic Bsl598 A/G Ratio 1.7 Ratio 08/28/2015 Comp Metabolic Gvd378 Osmo 283 mOsmo 08/28/2015 Lipid Ord30 CHOL 137 mg/dL 03/06/2015 Lipid Ord30 HDL 48.0 mg/dl 03/06/2015 Lipid Ord30 TRIG 121 mg/dL 03/06/2015 Lipid Ord30 LDL 65 mg/dL 03/06/2015 Lipid Ord30 C/HDL 2.9 Ratio 03/06/2015 %Hba1C Hni859 % HbA1c 08591-9 6.7 % 03/06/2015 %Hba1C Caz174 Gluc Ave 146 mg/dL 03/06/2015 Tsh Ord6 [...] Ord2 RDW 14.5 % 03/06/2015 Comp Metabolic Ajp805 NA 137 mEq/L 03/06/2015 Comp Metabolic Mad168 K 4.2 mEq/L 03/06/2015 Comp Metabolic Xar372 CL 103 mEq/L 03/06/2015 Comp Metabolic Mmo352 CO2 30.0 mEq/L 03/06/2015 Comp Metabolic Lzu943 ANION GAP 8 03/06/2015 Comp Metabolic Yza336 GLUCOSE 156 mg/dL 03/06/2015 Comp Metabolic Ubn812 Creat 1.0 mg/dL 03/06/2015 Comp Metabolic Qio698 eGFR 75 ml/min/1.73m2 03/06/2015 Comp Metabolic Joa544 BUN 17 mg/dL 03/06/2015 Comp Metabolic Gkn646 B/C Ratio 16.7 Ratio 03/06/2015 Comp Metabolic Qrp612 CALCIUM 9.2 mg/dL 03/06/2015 Comp Metabolic Ipy446 ALK PHOS 75 U/L 03/06/2015 Comp Metabolic Yqx949 AST(SGOT) 17 U/L 03/06/2015 Comp Metabolic Dfx631 ALT(SGPT) 16 U/L 03/06/2015 Comp Metabolic Kut542 BILI T 0.8 mg/dL 03/06/2015 Comp Metabolic Kmo026 ALBUMIN 4.0 g/dL 03/06/2015 Comp Metabolic Ctr233 TPRO 6.3 g/dL 03/06/2015 Comp Metabolic Ycy777 GLOB 2.3 g/dL 03/06/2015 Comp Metabolic Wmp471 A/G Ratio 1.7 Ratio 03/06/2015 Comp Metabolic Ylr945 Osmo 279 mOsmo 03/06/2015 Free T4 Fbj619 FREE T4 1.02 ng/dL 03/06/2015 Review of Systems System Result Effective Dates Constitutional recent illness 08/18/2017 Constitutional No chills [...] dentition 08/27/2015 None Full Exam - General 1995 Ears/Nose/Throat lips/teeth/gingiva Overall: benign lips 08/27/2015 None [...] Procedure Codes Date THER/PROPH/DIAG INJ SC/IM CPT-4: 17727 08/03/2017 TRIAMCINOLONE ACET INJ NOS CPT-4: J3301 08/03/2017 ROCEPHIN, PER 250 MG CPT-4: J0696 08/03/2017 TRIAMCINOLONE ACET INJ NOS CPT-4: J3301 04/08/2017 ADMIN INFLUENZA VIRUS VAC CPT-4: G0008 04/01/2017 FLU VACC PRSV FREE INC ANTIG CPT-4: 62639 04/01/2017 TRIAMCINOLONE ACET INJ NOS CPT-4: J3301 05/19/2016 THER/PROPH/DIAG INJ SC/IM CPT-4: 47580 05/12/2016 TRIAMCINOLONE ACET INJ NOS CPT-4: J3301 05/12/2016 ADMIN PNEUMOCOCCAL VACCINE SNOMED CT: 08969746 CPT-4: G0009 05/05/2016 Pneumococcal Polysaccharide Vaccine, 23-Valent, Ad Formatting Model/CDA Sections, Assigned to/Otilia Ramires CPT-4: 21402Gicnifl 05/05/2016 ADMIN INFLUENZA VIRUS VAC CPT-4: G0008 04/24/2016 FLU VACC 4 YA 3 YRS PLUS IM SNOMED CT: 95111967 CPT-4: 10482 04/24/2016 Vital Signs Date Vital 08/18/2017 Blood Pressure 1: 122/66 Code : 8480-6 BMI: 26.3 Code : 91410-6 Heart Rate 1 : 85 bpm Height: 6' SpO2: 95% Temperature: 36.6 (C) / 97.8 (F) Weight: 194 lbs 08/03/2017 Blood Pressure 1: 126/64 Code : 8480-6 BMI: 27.0 Code : 32818-0 Heart Rate 1 : 92 bpm Height: 6' SpO2: 94% Temperature: 37.4 (C) / 99.3 (F) Weight: 199 lbs 07/05/2017 Blood Pressure 1: 134/66 Code : 8480-6 BMI: 27.1 Code : 90007-6 Heart Rate 1 : 72 bpm Height: 6' SpO2: 96% Weight: 200 lbs 04/23/2017 Blood Pressure 1: 130/72 Code : 8480-6 BMI: 25.9 Code : 11994-3 Heart Rate 1 : 56 bpm Height: 6' SpO2: 97% Weight: 191 lbs 04/08/2017 Blood Pressure 1: 116/64 Code : 8480-6 BMI: 25.9 Code : 55267-8 Heart Rate 1 : 71 bpm Height: 6' SpO2: 97% Weight: 191 lbs 01/21/2017 Blood Pressure 1: 132/74 Code : 8480-6 BMI: 26.0 Code : 96385-7 Heart Rate 1 : 54 bpm Height: 6' SpO2: 94% Weight: 192 lbs 10/19/2016 Blood Pressure 1: 132/64 Code : 8480-6 BMI: 27.7 Code : 69885-7 Heart Rate 1 : 77 bpm Height: 6' SpO2: 98% Weight: 204 lbs 07/23/2016 Blood Pressure 1: 130/62 Code : 8480-6 BMI: 27.8 Code : 42283-6 Heart Rate 1 : 95 bpm Height: 6' SpO2: 97% Weight: 205 lbs 05/19/2016 Blood Pressure 1: 118/70 Code : 8480-6 BMI: 27.9 Code : 76166-3 Heart Rate 1 : 76 bpm Height: 6' SpO2: 97% Weight: 206 lbs 04/21/2016 Blood Pressure 1: 130/70 Code : 8480-6 BMI: 27.9 Code : 56727-8 Heart Rate 1 : 76 bpm Height: 6' SpO2: 96% Weight: 206 lbs 03/26/2016 Blood Pressure 1: 130/78 Code : 8480-6 BMI: 27.7 Code : 52994-8 Heart Rate 1 : 61 bpm Height: 6' SpO2: 98% Weight: 204 lbs 01/27/2016 Blood Pressure 1: 124/80 Code : 8480-6 BMI: 27.5 Code : 34620-1 Heart Rate 1 : 78 bpm Height: 6' SpO2: 96% Weight: 203 lbs 10/28/2015 Blood Pressure 1: 138/78 Code : 8480-6 BMI: 27.7 Code : 63756-8 Heart Rate 1 : 76 bpm Height: 6' SpO2: 98% Weight: 204 lbs 08/27/2015 Blood Pressure 1: 128/56 Code : 8480-6 BMI: 27.4 Code : 77311-7 Heart Rate 1 : 49 bpm Height: 6' SpO2: 98% Weight: 202 lbs 06/06/2015 Blood Pressure 1: 128/62 Code : 8480-6 BMI: 26.0 Code : 47347-9 Heart Rate 1 : 80 bpm Height: 6' SpO2: 98% Weight: 192 lbs 04/30/2015 Blood Pressure 1: 138/64 Code : 8480-6 BMI: 19.2 Code : 16840-7 Heart Rate 1 : 71 bpm Height: 6' SpO2: 94% Weight: 141 lbs 8 oz 04/23/2015 Blood Pressure 1: 128/64 Code : 8480-6 BMI: 25.6 Code : 99168-2 Heart Rate 1 : 66 bpm Height: 6' SpO2: 98% Weight: 189 lbs 03/04/2015 Blood Pressure 1: 132/50 Code : 8480-6 BMI: 25.8 Code : 67587-4 Heart Rate 1 : 63 bpm Height: 6' SpO2: 97% Weight: 190 lbs 12/04/2014 Blood Pressure 1: 112/68 Code : 8480-6 BMI: 26.9 Code : 53505-0 Heart Rate 1 : 68 bpm Height: [...] data Encounters Encounter Performer Location Codes Date [id number] EST. PATIENT, LEVEL IV Diagnosis: Cough[ICD10: R05] Diagnosis: Acute bronchitis due to other specified organisms[ICD10: J20.8] Zenobia Iyer MD, [facility] CPT-4: 58987 08/18/2017 ([id number]) 05416 EST. PATIENT, LEVEL III Diagnosis: Cough[ICD10: R05] Diagnosis: Acute bronchitis due to other specified organisms[ICD10: J20.8] Ayana Iyer MD, [facility] CPT-4: 51593 08/03/2017 ([id number]) 68484 EST. PATIENT, LEVEL III Diagnosis: Essential (primary) hypertension[ICD10: I10] Shalini Iyer MD, [facility] CPT-4: 90818 07/05/2017 ([id number]) 97835 EST. PATIENT, LEVEL IV Diagnosis: Essential (primary) hypertension[ICD10: I10] Diagnosis: Type 2 diabetes mellitus without complications[ICD10: E11.9] Diagnosis: Hypothyroidism, unspecified[ICD10: E03.9] Shalini Iyer MD, [facility] CPT-4: 35128 04/23/2017 ([id number]) 48177 EST. PATIENT, LEVEL III Diagnosis: Other allergic rhinitis[ICD10: J30.89] Shalini Iyer MD, [facility] CPT-4: 60895 04/08/2017 ([id number]) 84010 EST. PATIENT, LEVEL IV Diagnosis: Type 2 diabetes mellitus without complications[ICD10: E11.9] Diagnosis: Essential (primary) hypertension[ICD10: I10] Diagnosis: Hypothyroidism, unspecified[ICD10: E03.9] Diagnosis: Allergic rhinitis due to pollen[ICD10: J30.1] Shalini Iyer MD, [facility] CPT-4: 63810 01/21/2017 ([id number]) 94929 EST. PATIENT, LEVEL IV Diagnosis: Essential (primary) hypertension[ICD10: I10] Diagnosis: Mixed hyperlipidemia[ICD10: E78.2] Diagnosis: Hypothyroidism, unspecified[ICD10: E03.9] Diagnosis: Pain in left knee[ICD10: M25.562] Diagnosis: Type 2 diabetes mellitus without complications[ICD10: E11.9] Shalini Iyer MD, [facility] CPT-4: 48102 10/19/2016 ([id number]) 80798 EST. PATIENT, LEVEL IV Diagnosis: Essential (primary) hypertension[ICD10: I10] Diagnosis: Type 2 diabetes mellitus without complications[ICD10: E11.9] Diagnosis: Hypothyroidism, unspecified[ICD10: E03.9] Diagnosis: Mixed hyperlipidemia[ICD10: E78.2] Shalini Iyer MD, [facility] CPT-4: 86017 07/23/2016 ([id number]) 76816 EST. PATIENT, LEVEL III Diagnosis: Acute recurrent maxillary sinusitis[ICD10: J01.01] Shalini Iyer MD, [facility] CPT-4: 24545 05/19/2016 ([id number]) 61336 EST. PATIENT, LEVEL III Diagnosis: Type 2 diabetes mellitus without complications[ICD10: E11.9] Diagnosis: Essential (primary) hypertension[ICD10: I10] Diagnosis: Allergic rhinitis due to pollen[ICD10: J30.1] Shalini Iyer MD, [facility] CPT-4: 67515 04/21/2016 ([id number]) 68888 EST. PATIENT, LEVEL III Diagnosis: Pain in left knee[ICD10: M25.562] Diagnosis: Localized edema[ICD10: R60.0] Shalini Iyer MD, [facility] CPT-4: 62733 03/26/2016 ([id number]) 09565 EST. PATIENT, LEVEL IV Diagnosis: Essential (primary) hypertension[ICD10: I10] Diagnosis: Type 2 diabetes mellitus without complications[ICD10: E11.9] Diagnosis: Pain in right shoulder[ICD10: M25.511] Shalini Iyer MD, [facility] CPT-4: 58234 01/27/2016 ([id number]) 72887 EST. PATIENT, LEVEL IV Diagnosis: Essential (primary) hypertension[ICD10: I10] Diagnosis: Allergic rhinitis due to pollen[ICD10: J30.1] Diagnosis: Type 2 diabetes mellitus without complications[ICD10: E11.9] Diagnosis: Hypothyroidism, unspecified[ICD10: E03.9] Shalini Iyer MD, [facility] CPT-4: 52472 10/28/2015 ([id number]) 94211 EST. PATIENT, LEVEL IV Diagnosis: Essential (primary) hypertension[ICD10: I10] Diagnosis: Type 2 diabetes mellitus without complications[ICD10: E11.9] Diagnosis: Hypothyroidism, unspecified[ICD10: E03.9] Diagnosis: Lichen planus, unspecified[ICD10: L43.9] Shalini Iyer MD, [facility] CPT-4: 85260 08/27/2015 ([id number]) 82653 EST. PATIENT, LEVEL III Diagnosis: Cervical disc disorder with radiculopathy, unspecified cervical region[ICD10: M50.10] Diagnosis: Type 2 diabetes mellitus without complications[ICD10: E11.9] Diagnosis: Essential (primary) hypertension[ICD10: I10] Shalini Iyer MD, [facility] CPT-4: 30105 06/06/2015 ([id number]) 98782 EST. PATIENT, LEVEL III Diagnosis: Cervicalgia[ICD10: M54.2] Shalini Iyer MD, [facility] CPT-4: 49694 04/30/2015 ([id number]) 93550 EST. PATIENT, LEVEL III Diagnosis: Essential (primary) hypertension[ICD10: I10] Diagnosis: Type 2 diabetes mellitus without complications[ICD10: E11.9] Diagnosis: Primary osteoarthritis, unspecified site[ICD10: M19.91] Shalini Iyre MD, [facility] CPT-4: 30912 04/23/2015 ([id number]) 84256 EST. PATIENT, LEVEL IV Diagnosis: ESSENTIAL HYPERTENSION[ICD9: 401.9] Diagnosis: DIABETES TYPE II[ICD9: 250.00] Diagnosis: Osteoarthritis[ICD9: 715.90] [facility] CPT-4: 53208 03/04/2015 ([id number]) OFFICE VISIT, NEW - LEVEL 4 Diagnosis: ESSENTIAL HYPERTENSION[ICD9: 401.9] Diagnosis: Hypothyroidism[ICD9: 244.9] Diagnosis: DIABETES TYPE II[ICD9: 250.00] Diagnosis: ACTINIC KERATOSIS[ICD9: 702.0] [facility] CPT-4: 27570 12/04/2014 Plan of Care Planned Activity Notes Codes Status Date Visit Plan: Bronchitis - acute case of bronchitis identified. Pt has been given antibiotics, steroids as appropriate, and pt has been instructed to call if symptoms are not improved, or if symptoms acutely worsen. 08/18/2017 Appointment: Zenobia Desouza WPtel: [phone] [phone] (15 min) Moderate 08/18/2017 Patient Education: Patient Medication Summary Completed 08/18/2017 Visit Plan: Bronchitis - acute case of bronchitis identified. Pt has been given antibiotics, breathing treatments as appropriate, and pt has been instructed to call if symptoms are not improved, or if symptoms acutely worsen. 08/03/2017 Appointment: Ayana Iyer WPtel: [phone] [phone] (15 min) Moderate 08/03/2017 Patient Education: Patient Medication Summary Completed 08/03/2017 Visit Plan: Hypertension - well controlled - continue with current medications, continue with no added salt diet. Pt has been encouraged to exercise daily. The pt has been advised to call the office if there are any acute concerns about change in blood pressure readings at home. 07/05/2017 App[facility]ment: [phone] (30 min) Complex 07/05/2017 Patient Education: Patient Medication Summary Completed 07/05/2017 Patient Education: Patient Medication Summary Completed 04/30/2017 Care Plan: %Hba1C LOINC : 82706-2 Pending 04/30/2017 Visit Plan: Hypertension - well [...] of control. 04/23/2017 Appointment: Shalini Mitchell WPtel: [address] [place] [address] (30 min) Complex 04/23/2017 Patient Education: Patient [...] allergy spray. 04/08/2017 Appointment: Shalini Mitchell WPtel: [address] [place] [address] (15 min) Moderate 04/08/2017 Patient Education: Patient [...] allergy spray. 01/21/2017 Appointment: Shalini Mitchell WPtel: [phone] (15 min) Moderate 01/21/2017 Patient Education: Patient Medication Summary Completed 01/21/2017 Appointment: Shalini Mitchell WPtel: [phone] (15 min) Moderate 01/18/2017 Visit Plan: Hypertension [...] symptoms persist 10/19/2016 Appointment: Shalini Mitchell WPtel: [address] [place], [place] [phone] (30 min) [facility] 10/19/2016 Patient Education: Patient Medication Summary Completed [...] to medications. 07/23/2016 Appointment: Shalini Mitchell WPtel: [facility]5 [phone] (30 min) Complex 07/23/2016 Patient Education: Patient Medication Summary Completed 07/23/2016 Visit Plan: Sinusitis - Pt has acute infection - pain in face, maxillary region, Pt informed to use decongestant, RX given to patient, sinus rinses also recommended. Call if symptoms do not show improvement. Kenalog injection today in the office. 05/19/2016 Appointment: Shalini Mitchell WPtel: [address] [place], [place] [phone] (15 min) Moderate 05/19/2016 Patient Education: Patient Medication Summary Completed 05/19/2016 Appointment: Injection 05/12/2016 Patient Education: Patient Medication Summary Completed 05/12/2016 Appointment: Injection 05/05/2016 Patient Education: Patient Medication Summary Completed 05/05/2016 Appointment: Shalini Mitchell WPtel: [facility]5 [phone] (30 min) Complex 05/01/2016 Appointment: Injection 04/24/2016 [...] allergy spray. 04/21/2016 Appointment: Shalini Mitchell WPtel: [facility]5 [phone] (30 min) Complex 04/21/2016 Patient Education: Patient [...] edema. 03/26/2016 Appointment: Shalini Mitchell WPtel: [phone] [phone] (15 min) Moderate 03/26/2016 Patient Education: Patient [...] controlled. Right shoulder pain-refer for PT at [facility] 01/27/2016 Appointment: (30 min) Complex 01/27/2016 [...] based on previous levels of control. 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 Patient verbalized understanding of plan. 04/30/2015 Patient Education: Patient Medication Summary Completed [...] Care Plan: COMPLETE CBC AUTOMATED LOINC : 40915-0 Ordered 12/04/2014 Instructions Comment . Bronchitis - acute case of bronchitis identified. Pt has been given antibiotics, steroids as appropriate, and pt has been instructed to call if symptoms are not improved, or if symptoms acutely worsen. . Diabetes Mellitus -I have recommended for [...] months based on previous levels of control. SWITCH BACK TO ELLIE DAILY FOR ALLERGY [...] months based on previous levels of control. 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 Hypertension - well controlled - continue [...] to assure normal liver response to medications. 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 Allergies - chronic - recommended [...] 3-liquid nitrogen to lesions x 3 . Bronchitis - acute case of bronchitis identified. Pt has been given antibiotics, breathing treatments as appropriate, and pt has been instructed to call if symptoms are not improved, or if symptoms acutely worsen. . Left knee pain-continue rest, ice, and [...] further attempt to reduce peripheral edema. . Hypertension - well controlled - continue with current medications, continue with no added salt diet. Pt has been encouraged to exercise daily. The pt has been advised to call the office if there are any acute concerns about change in blood pressure readings at home. . Sinusitis - Pt has acute infection [...] stenosis-surgery scheduled with Dr Moraes in June Check fasting labs . Hypertension - well [...] based on previous levels of control. 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 [employer]hen iymimh-dwwxg-vd [employer] customer service doxycycline per Dr Eduardo centeno-check labs-continue clobetasol . Neck pain-not improving with physical therapy-recommend [...] walk 100 feet without stopping to rest. FASTING LABS ON WEDNESDAY AT [employer] [facility] [employer] PAPERWORK CONCERNING FITTED SHOES FROM [...] controlled. Right shoulder pain-refer for PT at [facility] . Hypertension - well controlled - continue [...]
[2018-04-26 12:04] LABS: BASOPHILS % (AUTO) 1 % (0-10); EOSINOPHILS # (AUTO) 0.1 10^3/uL (0.0-0.3); EOSINOPHILS % (AUTO) 1 % (0-10); HEMATOCRIT 44 % (40-54); HEMOGLOBIN 14.7 G/DL (13.3-17.7); LYMPHOCYTES # (AUTO) 1.1 X 10^3 (1.0-4.0); LYMPHOCYTES % (AUTO) 14 % (12-44); MEAN CORPUSCULAR HEMOGLOBIN 29 PG (25-34); MEAN CORPUSCULAR HGB CONC 34 G/DL (32-36); MEAN CORPUSCULAR VOLUME 85 FL (80-99); MEAN PLATELET VOLUME 9.6 FL (7.4-10.4); MONOCYTES # (AUTO) 0.8 X 10^3 (0.0-1.0); MONOCYTES % (AUTO) 10 % (0-12); NEUTROPHILS # (AUTO) 5.7 X 10^3 (1.8-7.8); NEUTROPHILS % (AUTO) 75 % (42-75); PLATELET COUNT 387 10^3/uL (130-400); RED BLOOD COUNT 5.11 10^6/uL (4.35-5.85); RED CELL DISTRIBUTION WIDTH 14.3 % (10.0-14.5); WHITE BLOOD COUNT 7.6 10^3/uL (4.3-11.0)
--- OUTSIDE RECORDS SUMMARY | 2018-04-26 12:05 | XMS REPORT | CCD ---
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 Name Role Phone PP Unavailable CCM Unavailable Summary Purpose Interface Exchange Insurance Providers Payer name Policy type / Coverage type Covered democrat ID Effective Begin Date Effective End Date WPS Medicare Part B Medicare Part B [id number] Unknown Unknown [facility] Medicare Part B [id number] Unknown Unknown Family History Family History data not found Social History Social History Element Codes Description Effective Dates Marital status Unknown 12/04/2014 Number of children Unknown 3 12/04/2014 Employment Unknown Retired [employer] 12/04/[address]: 0186886 Quit over 10 years ago 12/04/[address]: 736305632 Never drinks alcohol 12/04/2014 Allergies, Adverse Reactions, [...] Instructions Zithromax Z-Anil 250 mg tablet RxNorm: 370844 1 Tablet(s) PO UD 2017 08/16/2017 Active zpack ceftriaxone 500 mg solution for injection RxNorm: 4835252 Inj 08/03/2017 08/03/2017 Inactive cephalexin 500 mg capsule RxNorm: 918690 1 Capsule(s) PO QID 08/09/2017 Inactive Kenalog 40 mg/mL suspension for injection RxNorm: 7194416 1 Milliliter(s) Inj 08/03/2017 08/03/2017 Inactive losartan 50 mg tablet RxNorm: 221798 TAKE ONE TABLET BY MOUTH ONCE DAILY IN THE MORNING 08/02/2017 No Stop Date Active simvastatin 10 mg tablet RxNorm: 764918 TAKE ONE TABLET BY MOUTH ONCE DAILY 08/02/2017 No Stop Date Active levothyroxine 137 mcg tablet RxNorm: 146947 TAKE ONE TABLET BY MOUTH ONCE DAILY 07/26/2017 No Stop Date Active Flonase Allergy Relief 50 mcg/actuation nasal spray, suspension RxNorm: 1282721 USE TWO SPRAY(S) IN EACH NOSTRIL ONCE DAILY 06/28/2017 No Stop Date Active baclofen 10 mg tablet RxNorm: 757913 TAKE ONE TABLET BY MOUTH THREE TIMES DAILY NEEDED FOR MUSCLE SPASM 06/28/2017 No Stop Date Active Kenalog 40 mg/mL suspension for injection RxNorm: 9724073 1 Milliliter(s) Inj 04/08/2017 04/08/2017 Inactive doxycycline hyclate 100 mg tablet RxNorm: 482806 1 Tablet(s) PO BID 04/01/2017 04/10/2017 Inactive PLEASE GIVE 90 DAY SUPPLY losartan 50 mg tablet RxNorm: 298522 TAKE ONE TABLET BY MOUTH ONCE DAILY IN THE MORNING 02/01/2017 07/30/2017 Inactive levothyroxine 137 mcg tablet RxNorm: 585009 1 Tablet(s) PO daily 01/22/2017 07/20/2017 Inactive hold until he calls for fill- using samples from office metoprolol succinate ER 25 mg tablet,extended release 24 hr RxNorm: 255107 1 Tablet(s) PO daily 01/11/2017 01/05/2018 Active tamsulosin 0.4 mg capsule RxNorm: 485240 TAKE ONE CAPSULE BY MOUTH ONCE DAILY 01/11/2017 10/07/2017 Active simvastatin 10 mg tablet RxNorm: 334350 TAKE ONE TABLET BY MOUTH ONCE DAILY 12/17/2016 06/14/2017 Inactive levothyroxine 150 mcg tablet RxNorm: 276108 1 Tablet(s) PO daily 09/24/2016 01/21/2017 Inactive doxycycline hyclate 100 mg tablet RxNorm: 551362 1 Tablet(s) PO daily 07/30/2016 01/25/2017 Inactive PLEASE GIVE 90 DAY SUPPLY doxycycline hyclate 100 mg tablet RxNorm: 047658 1 Tablet(s) PO daily 07/27/2016 07/29/2016 Inactive PLEASE GIVE 90 DAY SUPPLY quinine 324 mg capsule RxNorm: 165218 1 Capsule(s) PO HS PRN No Stop Date Active LEG CRAMPS doxycycline hyclate 100 mg tablet RxNorm: 394029 1 Tablet(s) PO daily 05/29/2016 07/26/2016 Inactive PLEASE GIVE 90 DAY SUPPLY Kenalog 40 mg/mL suspension for injection RxNorm: 2963017 Milliliter(s) Inj 05/19/2016 05/19/2016 Inactive Levaquin 500 mg tablet RxNorm: 194463 1 Tablet(s) PO daily 07/201505/25/2016 Inactive Zithromax Z-Anil 250 mg tablet RxNorm: 715526 1 Tablet(s) PO UD 05/14/2016 09/09/2016 Inactive zpack Kenalog 40 mg/mL suspension for injection RxNorm: 1042520 Milliliter(s) Inj 05/12/2016 05/12/2016 Inactive Zithromax Z-Anil 250 mg tablet RxNorm: 640760 1 Tablet(s) PO UD 05/08/2016 05/12/2016 Inactive zpack Flonase Allergy Relief 50 mcg/actuation nasal spray, suspension RxNorm: 0682157 2 [place] NASAL daily 04/21/20162016 Inactive levothyroxine 150 mcg tablet RxNorm: 700390 1 Tablet(s) PO daily 04/21/2016 09/23/2016 Inactive baclofen 10 mg tablet RxNorm: 335541 1 Tablet(s) PO TID as needed for muscle spasms 04/10/2016 11/05/2016 Inactive Flonase Allergy Relief 50 mcg/actuation nasal spray, suspension RxNorm: 6360510 2 [place] NASAL daily 01/27/20162015 Inactive losartan 50 mg tablet RxNorm: 707978 1 Tablet(s) PO QAM 201501/09/2017 Inactive magnesium oxide 400 mg tablet RxNorm: 105126 1 Tablet(s) PO daily 01/16/2016 01/09/2017 Inactive omega 1-iwz-lnz-fish oil 300 mg-1,000 mg capsule,delayed release RxNorm: 1 Capsule(s) PO daily 01/16/2016 01/09/2017 Inactive ask pt if this is needed- he may use OTC levothyroxine 175 mcg tablet RxNorm: 110795 1 Tablet(s) PO daily 01/16/2016 04/20/2016 Inactive metoprolol succinate ER 25 mg tablet,extended release 24 hr RxNorm: 385637 1 Tablet(s) PO daily 01/16/2016 01/09/2017 Inactive baclofen 10 mg tablet RxNorm: 128273 1 Tablet(s) PO TID as needed for muscle spasms 01/16/2016 04/09/2016 Inactive omega 7-bdb-qvd-fish oil 300 mg-1,000 mg capsule,delayed release RxNorm: 1 Capsule(s) PO daily 01/16/2016 01/15/2016 Inactive ask pt if this is needed- he may use OTC simvastatin 10 mg tablet RxNorm: 085909 1 Tablet(s) PO daily 12/16/2016 Inactive tamsulosin 0.4 mg capsule RxNorm: 845504 TAKE ONE CAPSULE BY MOUTH ONCE DAILY 01/05/2016 01/10/2017 Inactive levothyroxine 150 mcg tablet RxNorm: 882308 1 Tablet(s) PO daily 12/05/2015 12/04/2015 Inactive levothyroxine 150 mcg tablet RxNorm: 142771 1 Tablet(s) PO daily 12/05/2015 01/15/2016 Inactive metoprolol succinate ER 25 mg tablet,extended release 24 hr RxNorm: 170059 1 Tablet(s) PO daily 10/22/2015 01/15/2016 Inactive losartan 50 mg tablet RxNorm: 452474 1 Tablet(s) PO QAM 201501/15/2016 Inactive levothyroxine 175 mcg tablet RxNorm: 482001 1 Tablet(s) PO daily 09/09/2015 12/04/2015 Inactive doxycycline hyclate 100 mg tablet RxNorm: 744516 1 Tablet(s) PO daily 08/27/2015 01/15/2016 Inactive PLEASE GIVE 90 DAY SUPPLY doxycycline hyclate 100 mg tablet RxNorm: 144410 1 Tablet(s) PO daily 08/27/2015 08/26/2015 Inactive chlorzoxazone 500 mg tablet RxNorm: 121601 1 Tablet(s) PO Q6 as needed muscle spasms 08/15/2015 03/11/2016 Inactive chlorzoxazone 500 mg tablet RxNorm: 776907 1 Tablet(s) PO Q6 as needed muscle spasms 08/15/2015 08/14/2015 Inactive ketoconazole 2 % shampoo RxNorm: 823585 1 Application TOP UD 08/04/2015 Inactive ketoconazole 2 % shampoo RxNorm: 619227 1 Application TOP UD 01/15/2016 Inactive clobetasol 0.05 % topical solution RxNorm: 880741 1 Application TOP daily 08/01/2015 07/31/2015 Inactive clobetasol 0.05 % topical solution RxNorm: 871144 1 Application TOP daily 08/01/2015 01/15/2016 Inactive levothyroxine 175 mcg tablet RxNorm: 456595 1 Tablet(s) PO daily 07/22/2015 09/08/2015 Inactive doxycycline hyclate 100 mg tablet RxNorm: 049568 1 Tablet(s) PO daily 07/17/2015 08/15/2015 Inactive levothyroxine 175 mcg tablet RxNorm: 191917 Tablet(s) PO every other day 07/17/2015 07/21/2015 Inactive Zithromax Z-Anil 250 mg tablet RxNorm: 279695 1 Tablet(s) PO 05/07/2016 Inactive 1 zpayenny finasteride 5 mg tablet RxNorm: 493393 1 Tablet(s) PO daily 12/27/2015 Inactive simvastatin 10 mg tablet RxNorm: 686997 1 Tablet(s) PO daily 12/27/2015 Inactive clopidogrel 75 mg tablet RxNorm: 888189 1 Tablet(s) PO daily 01/15/2016 Inactive metoprolol succinate ER 25 mg tablet,extended release 24 hr RxNorm: 589300 1 Tablet(s) PO daily 07/01/2015 10/21/2015 Inactive levothyroxine 150 mcg tablet RxNorm: 173026 1 Tablet(s) PO daily 07/01/2015 07/21/2015 Inactive tamsulosin 0.4 mg capsule RxNorm: 862780 1 Capsule(s) PO daily 07/01/2015 12/27/2015 Inactive losartan 50 mg tablet RxNorm: 053022 1 Tablet(s) PO QAM 201410/17/2015 Inactive levothyroxine 150 mcg tablet RxNorm: 624053 1 Tablet(s) PO daily 07/01/2015 06/30/2015 Inactive Zithromax Z-Anil 250 mg tablet RxNorm: 775217 1 Tablet(s) PO 03/201507/09/2015 Inactive 1 ghassanpack Januvia 100 mg tablet RxNorm: 720095 1/2 Tablet(s) PO BID 201405/22/2015 Inactive Januvia 50 mg tablet RxNorm: 619612 1 Tablet(s) PO BID 201404/22/2015 Inactive chlorzoxazone 500 mg tablet RxNorm: 420608 1 Tablet(s) PO Q6 as needed muscle spasms 01/21/2015 01/20/2015 Inactive baclofen 10 mg tablet RxNorm: 526397 1 Tablet(s) PO TID as needed for muscle spasms 01/21/2015 06/30/2015 Inactive chlorzoxazone 500 mg tablet RxNorm: 677539 1 Tablet(s) PO Q6 as needed muscle spasms 01/21/2015 03/03/2015 Inactive Vitamin D3 2,000 unit tablet RxNorm: 936115 Tablet(s) PO BID No Stop Date Active [SAVINGS FOR NON-COVERED DRUGS -- BIN:[id number], PCN: [id number], Group: [id number] , ID# [id number], Questions: . THIS IS NOT INSURANCE.] Claritin 10 mg tablet RxNorm: 459153 1 Tablet(s) PO daily No Start Date Active aspirin 81 mg tablet RxNorm: 532587 Tablet(s) PO daily No Start Date Active Centrum Silver oral RxNorm: 42197 oral No Start Date Active Calcium Citrate + D 600 mg RxNorm: 630mg PO daily No Start Date Active sodium chloride oral RxNorm: oral No Start Date Active Phenergan-Codeine 6.25 mg-10 mg/5 mL syrup RxNorm: 964726 5 to 10 ml PO Q6 No Start Date Active Vitamin C 500 mg chewable tablet RxNorm: 843093 1 Tablet(s) PO No Start Date Active Vitamin B12 Oral RxNorm: oral No Start Date Active Fish Oil (with DHA-EPA) capsule RxNorm: oral No Start Date 01/15/2016 Inactive clopidogrel 75 mg tablet RxNorm: 712017 1 Tablet(s) PO daily No Start Date 06/30/2015 Inactive metoprolol succinate ER 25 mg tablet,extended release 24 hr RxNorm: 842549 1 Tablet(s) PO daily No Start Date 2014 Inactive simvastatin 10 mg tablet RxNorm: 331621 1 Tablet(s) PO daily No Start Date 06/30/2015 Inactive Claritin 10 mg tablet RxNorm: 385930 1 Tablet(s) PO daily No Start Date 07/16/2015 Inactive levothyroxine 175 mcg tablet RxNorm: 912361 Tablet(s) PO every other day No Start Date 06/30/2015 Inactive Vitamin D3 2,000 unit tablet RxNorm: 279368 Tablet(s) PO daily No Start Date 12/03/2014 Inactive losartan 50 mg tablet RxNorm: 424947 1 Tablet(s) PO QAM No Start Date 06/30/2015 Inactive magnesium oxide 400 mg tablet RxNorm: 608923 1 Tablet(s) PO daily No Start Date 01/15/2016 Inactive baclofen 10 mg tablet RxNorm: 088736 1 Tablet(s) PO TID as needed for muscle spasms No Start Date 01/20/2015 Inactive finasteride 5 mg tablet RxNorm: 650315 1 Tablet(s) PO daily No Start Date 06/30/2015 Inactive quinine 324 mg capsule RxNorm: 985074 1 Capsule(s) PO HS PRN No Start Date 06/14/2016 Inactive LEG CRAMPS Vitamin D3 (with calcium carbonate) oral RxNorm: 544203 oral No Start Date 01/15/2016 Inactive Zithromax Z-Anil 250 mg tablet RxNorm: 327491 1 Tablet(s) PO No Start Date 06/25/2015 Inactive 1 zpack levothyroxine 150 mcg tablet RxNorm: 923032 Tablet(s) PO every other day No Start Date 06/30/2015 Inactive Januvia 50 mg tablet RxNorm: 949774 1 Tablet(s) PO daily No Start Date 03/06/2015 Inactive fluticasone 50 mcg/actuation nasal spray,suspension RxNorm: 691262 1 [place] NASAL daily No Start Date 01/15/2016 Inactive tamsulosin ER 0.4 mg capsule,extended release 24 hr RxNorm: 533840 1 Capsule(s) PO daily No Start Date 06/30/2015 Inactive Ynes 180 mg tablet RxNorm: 851248 1 Tablet(s) PO daily No Start Date 01/15/2016 Inactive Medication Administered Medication Codes Instructions Start Date Status ceftriaxone 500 mg solution for injection RxNorm: 8350143 08/03/2017 No longer Active Kenalog 40 mg/mL suspension for injection RxNorm: 3959145 1Milliliter 08/03/2017 No longer Active Kenalog 40 mg/mL suspension for injection RxNorm: 6977784 1Milliliter 04/08/2017 No longer Active Kenalog 40 mg/mL suspension for injection RxNorm: 2255550 Milliliter 05/19/2016 No longer Active Kenalog 40 mg/mL suspension for injection RxNorm: 8548805 Milliliter 05/12/2016 No longer Active Immunizations Vaccine [...] Code Item Item Code Result Date %Hba1C Noo865 % HbA1c 31828-6 6.5 % 04/28/2017 %Hba1C Ioe472 Gluc Ave 140 mg/dL 04/28/2017 Lipid Ord30 [...] 29.5 pg 04/28/2017 Cbc With Differential Ord2 [place]linger% 14.0 % 04/28/2017 Cbc With Differential Ord2 [...] 1.07 K/ul 04/28/2017 Cbc With Differential Ord2 [place] ABS# 1.0 K/ul 04/28/2017 Cbc With Differential Ord2 Eos ABS# 0.2 K/ul 04/28/2017 Cbc With Differential Ord2 Baso ABS# 0.0 K/ul 04/28/2017 Free T4 Ttu128 FREE T4 1.07 ng/dL 04/28/2017 Comp Metabolic Ihp244 NA 140 mEq/L 04/28/2017 Comp Metabolic Jtp329 K 4.6 mEq/L 04/28/2017 Comp Metabolic Wvo494 CL 104 mEq/L 04/28/2017 Comp Metabolic Lxs787 CO2 27.0 mEq/L 04/28/2017 Comp Metabolic Dci271 ANION GAP 14 04/28/2017 Comp Metabolic Pwa142 GLUCOSE 141 mg/dL 04/28/2017 Comp Metabolic Kic372 Creat 1.0 mg/dL 04/28/2017 Comp Metabolic Zqd604 eGFR 79 ml/min/1.73m2 04/28/2017 Comp Metabolic Qvt159 BUN 26 mg/dL 04/28/2017 Comp Metabolic Hvt377 B/C Ratio 26.8 Ratio 04/28/2017 Comp Metabolic Mrr199 CALCIUM 9.4 mg/dL 04/28/2017 Comp Metabolic Awj759 ALK PHOS 66 U/L 04/28/2017 Comp Metabolic Omw082 AST(SGOT) 21 U/L 04/28/2017 Comp Metabolic Fwm957 ALT(SGPT) 20 U/L 04/28/2017 Comp Metabolic Qmj304 BILI T 1.3 mg/dL 04/28/2017 Comp Metabolic Uww463 ALBUMIN 4.1 g/dL 04/28/2017 Comp Metabolic Hja627 TPRO 6.3 g/dL 04/28/2017 Comp Metabolic Izd498 GLOB 2.2 g/dL 04/28/2017 Comp Metabolic Rhd176 A/G Ratio 1.9 Ratio 04/28/2017 Comp Metabolic Xhr973 Osmo 287 mOsmo 04/28/2017 %Hba1C Joq842 % HbA1c 96150-1 6.6 % 01/22/2017 %Hba1C Zsu174 Gluc Ave 143 mg/dL 01/22/2017 Tsh Ord6 [...] 30.2 pg 01/22/2017 Cbc With Differential Ord2 [place]linger% 14.1 % 01/22/2017 Cbc With Differential Ord2 [...] 1.01 K/ul 01/22/2017 Cbc With Differential Ord2 [place] ABS# 0.9 K/ul 01/22/2017 Cbc With Differential Ord2 Eos ABS# 0.2 K/ul 01/22/2017 Cbc With Differential Ord2 Baso ABS# 0.1 K/ul 01/22/2017 Comp Metabolic Iko573 NA 140 mEq/L 01/22/2017 Comp Metabolic Yxi136 K 4.3 mEq/L 01/22/2017 Comp Metabolic Awm730 CL 104 mEq/L 01/22/2017 Comp Metabolic Pky620 CO2 29.0 mEq/L 01/22/2017 Comp Metabolic Zva880 ANION GAP 11 01/22/2017 Comp Metabolic Leo699 GLUCOSE 146 mg/dL 01/22/2017 Comp Metabolic Tpw375 Creat 0.8 mg/dL 01/22/2017 Comp Metabolic Vxf407 eGFR 100 ml/min/1.73m2 01/22/2017 Comp Metabolic Ysd118 BUN 19 mg/dL 01/22/2017 Comp Metabolic Met479 B/C Ratio 24.1 Ratio 01/22/2017 Comp Metabolic Xmi508 CALCIUM 9.2 mg/dL 01/22/2017 Comp Metabolic Sdq574 ALK PHOS 60 U/L 01/22/2017 Comp Metabolic Oru282 AST(SGOT) 18 U/L 01/22/2017 Comp Metabolic Ybb247 ALT(SGPT) 17 U/L 01/22/2017 Comp Metabolic Hrd076 BILI T 0.6 mg/dL 01/22/2017 Comp Metabolic Auq967 ALBUMIN 3.7 g/dL 01/22/2017 Comp Metabolic Oqi196 TPRO 5.8 g/dL 01/22/2017 Comp Metabolic Xue023 GLOB 2.1 g/dL 01/22/2017 Comp Metabolic Xwv817 A/G Ratio 1.7 Ratio 01/22/2017 Comp Metabolic Fst663 Osmo 284 mOsmo 01/22/2017 Lipid Ord30 CHOL 126 mg/dL 01/22/2017 Lipid Ord30 HDL 43.0 mg/dl 01/22/2017 Lipid Ord30 TRIG 111 mg/dL 01/22/2017 Lipid Ord30 LDL 61 mg/dL 01/22/2017 Lipid Ord30 C/HDL 2.9 Ratio 01/22/2017 Free T4 Naq742 FREE T4 0.96 ng/dL 01/22/2017 Comp Metabolic Nfl114 NA 141 mEq/L 10/23/2016 Comp Metabolic Cyy092 K 4.3 mEq/L 10/23/2016 Comp Metabolic Bhi289 CL 104 mEq/L 10/23/2016 Comp Metabolic Mhn711 CO2 29.0 mEq/L 10/23/2016 Comp Metabolic Zwp817 ANION GAP 12 10/23/2016 Comp Metabolic Alw954 GLUCOSE 156 mg/dL 10/23/2016 Comp Metabolic Wvx401 Creat 0.9 mg/dL 10/23/2016 Comp Metabolic Irz224 eGFR 85 ml/min/1.73m2 10/23/2016 Comp Metabolic Wdk478 BUN 19 mg/dL 10/23/2016 Comp Metabolic Bwj460 B/C Ratio 20.9 Ratio 10/23/2016 Comp Metabolic Eot647 CALCIUM 9.2 mg/dL 10/23/2016 Comp Metabolic Qfo209 ALK PHOS 72 U/L 10/23/2016 Comp Metabolic Bin016 AST(SGOT) 21 U/L 10/23/2016 Comp Metabolic Vxy935 ALT(SGPT) 19 U/L 10/23/2016 Comp Metabolic Nnn282 BILI T 0.8 mg/dL 10/23/2016 Comp Metabolic Hkf876 ALBUMIN 3.8 g/dL 10/23/2016 Comp Metabolic Fvy840 TPRO 6.2 g/dL 10/23/2016 Comp Metabolic Rvi619 GLOB 2.4 g/dL 10/23/2016 Comp Metabolic Lml230 A/G Ratio 1.6 Ratio 10/23/2016 Comp Metabolic Fao697 Osmo 287 mOsmo 10/23/2016 Cbc With Differential [...] 92.9 fl 10/23/2016 Cbc With Differential Ord2 [place]linger% 12.7 % 10/23/2016 Cbc With Differential Ord2 [...] 0.79 K/ul 10/23/2016 Cbc With Differential Ord2 [place] ABS# 0.7 K/ul 10/23/2016 Cbc With Differential Ord2 Eos ABS# 0.2 K/ul 10/23/2016 Cbc With Differential Ord2 Baso ABS# 0.0 K/ul 10/23/2016 Lipid Ord30 CHOL 134 mg/dL 10/23/2016 Lipid Ord30 HDL 42.0 mg/dl 10/23/2016 Lipid Ord30 TRIG 101 mg/dL 10/23/2016 Lipid Ord30 LDL 72 mg/dL 10/23/2016 Lipid Ord30 C/HDL 3.2 Ratio 10/23/2016 Free T4 Lln151 FREE T4 0.99 ng/dL 10/23/2016 Tsh Ord6 hTSH II 0.70 uIU/mL 10/23/2016 %Hba1C Ltz233 % HbA1c 46469-5 7.0 % 10/23/2016 %Hba1C Swt072 Gluc Ave 154 mg/dL 10/23/2016 Lipid Ord30 CHOL 136 mg/dL 07/24/2016 Lipid Ord30 HDL 52.0 mg/dl 07/24/2016 Lipid Ord30 TRIG 83 mg/dL 07/24/2016 Lipid Ord30 LDL 67 mg/dL 07/24/2016 Lipid Ord30 C/HDL 2.6 Ratio 07/24/2016 %Hba1C Ske532 % HbA1c 91022-4 7.1 % 07/24/2016 %Hba1C Esz738 Gluc Ave 157 mg/dL 07/24/2016 Tsh Ord6 [...] 93.0 fl 07/24/2016 Cbc With Differential Ord2 [place]linger% 13.8 % 07/24/2016 Cbc With Differential Ord2 [...] 1.56 K/ul 07/24/2016 Cbc With Differential Ord2 [place] ABS# 1.0 K/ul 07/24/2016 Cbc With Differential Ord2 Eos ABS# 0.2 K/ul 07/24/2016 Cbc With Differential Ord2 Baso ABS# 0.0 K/ul 07/24/2016 Comp Metabolic Fad647 NA 139 mEq/L 07/24/2016 Comp Metabolic Biw760 K 4.5 mEq/L 07/24/2016 Comp Metabolic Bff944 CL 103 mEq/L 07/24/2016 Comp Metabolic Oqy929 CO2 30.0 mEq/L 07/24/2016 Comp Metabolic Eha543 ANION GAP 11 07/24/2016 Comp Metabolic Vyv759 GLUCOSE 161 mg/dL 07/24/2016 Comp Metabolic Kvw610 Creat 1.0 mg/dL 07/24/2016 Comp Metabolic Avo568 eGFR 80 ml/min/1.73m2 07/24/2016 Comp Metabolic Ybt147 BUN 23 mg/dL 07/24/2016 Comp Metabolic Toe969 B/C Ratio 24.0 Ratio 07/24/2016 Comp Metabolic Oaf291 CALCIUM 9.4 mg/dL 07/24/2016 Comp Metabolic Xym380 ALK PHOS 66 U/L 07/24/2016 Comp Metabolic Shw362 AST(SGOT) 18 U/L 07/24/2016 Comp Metabolic Hjr529 ALT(SGPT) 22 U/L 07/24/2016 Comp Metabolic Glo563 BILI T 1.1 mg/dL 07/24/2016 Comp Metabolic Xbt636 ALBUMIN 4.0 g/dL 07/24/2016 Comp Metabolic Lml861 TPRO 6.4 g/dL 07/24/2016 Comp Metabolic Jtw092 GLOB 2.4 g/dL 07/24/2016 Comp Metabolic Sav757 A/G Ratio 1.6 Ratio 07/24/2016 Comp Metabolic Qsp696 Osmo 285 mOsmo 07/24/2016 %Hba1C Cif198 % HbA1c 96499-1 7.0 % 03/11/2016 %Hba1C Ijn974 Gluc Ave 154 mg/dL 03/11/2016 Free T4 Lhv587 FREE T4 0.92 ng/dL 03/11/2016 Tsh Ord6 hTSH II 0.92 uIU/mL 03/11/2016 %Hba1C Epv911 % HbA1c 11002-4 7.1 % 11/27/2015 %Hba1C Sjr551 Gluc Ave 157 mg/dL 11/27/2015 Free T4 Xrx975 FREE T4 0.95 ng/dL 11/27/2015 Cbc With [...] 20.3 % 11/27/2015 Cbc With Differential Ord2 [place]linger% 13.5 % 11/27/2015 Cbc With Differential Ord2 [...] 1.26 K/ul 11/27/2015 Cbc With Differential Ord2 [place] ABS# 0.8 K/ul 11/27/2015 Cbc With Differential Ord2 Eos ABS# 0.2 K/ul 11/27/2015 Cbc With Differential Ord2 Baso ABS# 0.1 K/ul 11/27/2015 Cbc With Differential Ord2 New Analyzer Notice Please note new ref ranges starting 07-31-2015 due to implemntation of new five part differential hematolgy analyzer. 11/27/2015 Tsh Ord6 hTSH II 0.35 uIU/mL 11/27/2015 Comp Metabolic Ami979 NA 139 mEq/L 11/27/2015 Comp Metabolic Jue422 K 4.4 mEq/L 11/27/2015 Comp Metabolic Cnz666 CL 105 mEq/L 11/27/2015 Comp Metabolic Qeq156 CO2 28.0 mEq/L 11/27/2015 Comp Metabolic Pdh267 ANION GAP 10 11/27/2015 Comp Metabolic Rld774 GLUCOSE 139 mg/dL 11/27/2015 Comp Metabolic Gza118 Creat 0.9 mg/dL 11/27/2015 Comp Metabolic Ihn293 eGFR 89 ml/min/1.73m2 11/27/2015 Comp Metabolic Mej164 BUN 15 mg/dL 11/27/2015 Comp Metabolic Vfk425 B/C Ratio 17.2 Ratio 11/27/2015 Comp Metabolic Uoq127 CALCIUM 8.8 mg/dL 11/27/2015 Comp Metabolic Prw509 ALK PHOS 78 U/L 11/27/2015 Comp Metabolic Agf127 AST(SGOT) 18 U/L 11/27/2015 Comp Metabolic Zcf923 ALT(SGPT) 16 U/L 11/27/2015 Comp Metabolic Qtg596 BILI T 0.9 mg/dL 11/27/2015 Comp Metabolic Dha217 ALBUMIN 3.7 g/dL 11/27/2015 Comp Metabolic Aym484 TPRO 6.2 g/dL 11/27/2015 Comp Metabolic Xhe031 GLOB 2.5 g/dL 11/27/2015 Comp Metabolic Jyz719 A/G Ratio 1.5 Ratio 11/27/2015 Comp Metabolic Ttr014 Osmo 281 mOsmo 11/27/2015 Lipid Ord30 CHOL 123 mg/dL 11/27/2015 Lipid Ord30 HDL 41.0 mg/dl 11/27/2015 Lipid Ord30 TRIG 130 mg/dL 11/27/2015 Lipid Ord30 LDL 56 mg/dL 11/27/2015 Lipid Ord30 C/HDL 3.0 Ratio 11/27/2015 Free T4 Rlc389 FREE T4 0.87 ng/dL 08/28/2015 Lipid Ord30 [...] 23.8 % 08/28/2015 Cbc With Differential Ord2 [place]% 12.7 % 08/28/2015 Cbc With Differential Ord2 [...] 1.53 K/ul 08/28/2015 Cbc With Differential Ord2 [place] ABS# 0.8 K/ul 08/28/2015 Cbc With Differential Ord2 Eos ABS# 0.3 K/ul 08/28/2015 Cbc With Differential Ord2 Baso ABS# 0.1 K/ul 08/28/2015 Cbc With Differential Ord2 New Analyzer Notice Please note new ref ranges starting 07-31-2015 due to implemntation of new five part differential hematolgy analyzer. 08/28/2015 %Hba1C Auk914 % HbA1c 33010-9 6.9 % 08/28/2015 %Hba1C Hrj816 Gluc Ave 151 mg/dL 08/28/2015 Comp Metabolic Mdc675 NA 139 mEq/L 08/28/2015 Comp Metabolic Ddp888 K 4.5 mEq/L 08/28/2015 Comp Metabolic Div611 CL 104 mEq/L 08/28/2015 Comp Metabolic Vgz036 CO2 28.0 mEq/L 08/28/2015 Comp Metabolic Jaj491 ANION GAP 12 08/28/2015 Comp Metabolic Sel200 GLUCOSE 146 mg/dL 08/28/2015 Comp Metabolic Gxz476 Creat 1.0 mg/dL 08/28/2015 Comp Metabolic Dgs289 eGFR 77 ml/min/1.73m2 08/28/2015 Comp Metabolic Izy374 BUN 21 mg/dL 08/28/2015 Comp Metabolic Wwy022 B/C Ratio 21.2 Ratio 08/28/2015 Comp Metabolic Biy131 CALCIUM 9.3 mg/dL 08/28/2015 Comp Metabolic Tyw224 ALK PHOS 70 U/L 08/28/2015 Comp Metabolic Axo507 AST(SGOT) 18 U/L 08/28/2015 Comp Metabolic Lue536 ALT(SGPT) 16 U/L 08/28/2015 Comp Metabolic Vcm822 BILI T 0.6 mg/dL 08/28/2015 Comp Metabolic Qku592 ALBUMIN 4.0 g/dL 08/28/2015 Comp Metabolic Aun484 TPRO 6.4 g/dL 08/28/2015 Comp Metabolic Knd380 GLOB 2.4 g/dL 08/28/2015 Comp Metabolic Poz871 A/G Ratio 1.7 Ratio 08/28/2015 Comp Metabolic Dgr366 Osmo 283 mOsmo 08/28/2015 Lipid Ord30 CHOL 137 mg/dL 03/06/2015 Lipid Ord30 HDL 48.0 mg/dl 03/06/2015 Lipid Ord30 TRIG 121 mg/dL 03/06/2015 Lipid Ord30 LDL 65 mg/dL 03/06/2015 Lipid Ord30 C/HDL 2.9 Ratio 03/06/2015 %Hba1C Ncw814 % HbA1c 41147-5 6.7 % 03/06/2015 %Hba1C Xeh684 Gluc Ave 146 mg/dL 03/06/2015 Tsh Ord6 [...] Ord2 RDW 14.5 % 03/06/2015 Comp Metabolic Ouo441 NA 137 mEq/L 03/06/2015 Comp Metabolic Xhc700 K 4.2 mEq/L 03/06/2015 Comp Metabolic Jnu852 CL 103 mEq/L 03/06/2015 Comp Metabolic Lnd304 CO2 30.0 mEq/L 03/06/2015 Comp Metabolic Alp908 ANION GAP 8 03/06/2015 Comp Metabolic Gzr982 GLUCOSE 156 mg/dL 03/06/2015 Comp Metabolic Pdi953 Creat 1.0 mg/dL 03/06/2015 Comp Metabolic Mrb786 eGFR 75 ml/min/1.73m2 03/06/2015 Comp Metabolic Fmz119 BUN 17 mg/dL 03/06/2015 Comp Metabolic Nqr215 B/C Ratio 16.7 Ratio 03/06/2015 Comp Metabolic Tie958 CALCIUM 9.2 mg/dL 03/06/2015 Comp Metabolic Ygh825 ALK PHOS 75 U/L 03/06/2015 Comp Metabolic Gqs455 AST(SGOT) 17 U/L 03/06/2015 Comp Metabolic Vrr628 ALT(SGPT) 16 U/L 03/06/2015 Comp Metabolic Qkk570 BILI T 0.8 mg/dL 03/06/2015 Comp Metabolic Imw524 ALBUMIN 4.0 g/dL 03/06/2015 Comp Metabolic Sfq126 TPRO 6.3 g/dL 03/06/2015 Comp Metabolic Wzo651 GLOB 2.3 g/dL 03/06/2015 Comp Metabolic Jff858 A/G Ratio 1.7 Ratio 03/06/2015 Comp Metabolic Dau934 Osmo 279 mOsmo 03/06/2015 Free T4 Pvb457 FREE T4 1.02 ng/dL 03/06/2015 Review of [...] Procedure Codes Date THER/PROPH/DIAG INJ SC/IM CPT-4: 20206 08/03/2017 TRIAMCINOLONE ACET INJ NOS CPT-4: J3301 08/03/2017 ROCEPHIN, PER 250 MG CPT-4: J0696 08/03/2017 TRIAMCINOLONE ACET INJ NOS CPT-4: J3301 04/08/2017 ADMIN INFLUENZA VIRUS VAC CPT-4: G0008 04/01/2017 FLU VACC PRSV FREE INC ANTIG CPT-4: 49995 04/01/2017 TRIAMCINOLONE ACET INJ NOS CPT-4: J3301 05/19/2016 THER/PROPH/DIAG INJ SC/IM CPT-4: 71938 05/12/2016 TRIAMCINOLONE ACET INJ NOS CPT-4: J3301 05/12/2016 ADMIN PNEUMOCOCCAL VACCINE SNOMED CT: 24027190 CPT-4: G0009 05/05/2016 Pneumococcal Polysaccharide Vaccine, 23-Valent, Ad Formatting Model/CDA Sections, Assigned to/Ike Otilia CPT-4: 93286Isdayvg 05/05/2016 ADMIN INFLUENZA VIRUS VAC CPT-4: G0008 04/24/2016 FLU VACC 4 YA 3 YRS PLUS IM SNOMED CT: 60332670 CPT-4: 17233 04/24/2016 Vital Signs Date Vital 08/03/2017 Blood Pressure 1: 126/64 Code : 8480-6 BMI: 27.0 Code : 63980-6 Heart Rate 1 : 92 bpm Height: 6' SpO2: 94% Temperature: 37.4 (C) / 99.3 (F) Weight: 199 lbs 07/05/2017 Blood Pressure 1: 134/66 Code : 8480-6 BMI: 27.1 Code : 37041-8 Heart Rate 1 : 72 bpm Height: 6' SpO2: 96% Weight: 200 lbs 04/23/2017 Blood Pressure 1: 130/72 Code : 8480-6 BMI: 25.9 Code : 35549-6 Heart Rate 1 : 56 bpm Height: 6' SpO2: 97% Weight: 191 lbs 04/08/2017 Blood Pressure 1: 116/64 Code : 8480-6 BMI: 25.9 Code : 39523-4 Heart Rate 1 : 71 bpm Height: 6' SpO2: 97% Weight: 191 lbs 01/21/2017 Blood Pressure 1: 132/74 Code : 8480-6 BMI: 26.0 Code : 43272-8 Heart Rate 1 : 54 bpm Height: 6' SpO2: 94% Weight: 192 lbs 10/19/2016 Blood Pressure 1: 132/64 Code : 8480-6 BMI: 27.7 Code : 19685-2 Heart Rate 1 : 77 bpm Height: 6' SpO2: 98% Weight: 204 lbs 07/23/2016 Blood Pressure 1: 130/62 Code : 8480-6 BMI: 27.8 Code : 27236-6 Heart Rate 1 : 95 bpm Height: 6' SpO2: 97% Weight: 205 lbs 05/19/2016 Blood Pressure 1: 118/70 Code : 8480-6 BMI: 27.9 Code : 35827-7 Heart Rate 1 : 76 bpm Height: 6' SpO2: 97% Weight: 206 lbs 04/21/2016 Blood Pressure 1: 130/70 Code : 8480-6 BMI: 27.9 Code : 71498-5 Heart Rate 1 : 76 bpm Height: 6' SpO2: 96% Weight: 206 lbs 03/26/2016 Blood Pressure 1: 130/78 Code : 8480-6 BMI: 27.7 Code : 81085-3 Heart Rate 1 : 61 bpm Height: 6' SpO2: 98% Weight: 204 lbs 01/27/2016 Blood Pressure 1: 124/80 Code : 8480-6 BMI: 27.5 Code : 75074-6 Heart Rate 1 : 78 bpm Height: 6' SpO2: 96% Weight: 203 lbs 10/28/2015 Blood Pressure 1: 138/78 Code : 8480-6 BMI: 27.7 Code : 38041-0 Heart Rate 1 : 76 bpm Height: 6' SpO2: 98% Weight: 204 lbs 08/27/2015 Blood Pressure 1: 128/56 Code : 8480-6 BMI: 27.4 Code : 69514-7 Heart Rate 1 : 49 bpm Height: 6' SpO2: 98% Weight: 202 lbs 06/06/2015 Blood Pressure 1: 128/62 Code : 8480-6 BMI: 26.0 Code : 08973-6 Heart Rate 1 : 80 bpm Height: 6' SpO2: 98% Weight: 192 lbs 04/30/2015 Blood Pressure 1: 138/64 Code : 8480-6 BMI: 19.2 Code : 07175-8 Heart Rate 1 : 71 bpm Height: 6' SpO2: 94% Weight: 141 lbs 8 oz 04/23/2015 Blood Pressure 1: 128/64 Code : 8480-6 BMI: 25.6 Code : 42378-0 Heart Rate 1 : 66 bpm Height: 6' SpO2: 98% Weight: 189 lbs 03/04/2015 Blood Pressure 1: 132/50 Code : 8480-6 BMI: 25.8 Code : 36868-4 Heart Rate 1 : 63 bpm Height: 6' SpO2: 97% Weight: 190 lbs 12/04/2014 Blood Pressure 1: 112/68 Code : 8480-6 BMI: 26.9 Code : 61871-3 Heart Rate 1 : 68 bpm Height: [...] data Encounters Encounter Performer Location Codes Date ([id number]) 46413 EST. PATIENT, LEVEL III Diagnosis: Cough[ICD10: R05] Diagnosis: Acute bronchitis due to other specified organisms[ICD10: J20.8] [facility] CPT-4: 40174 08/03/2017 ([id number]) 59932 EST. PATIENT, LEVEL III Diagnosis: Essential (primary) hypertension[ICD10: I10] [facility] CPT-4: 26115 07/05/2017 ([id number]) 79498 EST. PATIENT, LEVEL IV Diagnosis: Essential (primary) hypertension[ICD10: I10] Diagnosis: Type 2 diabetes mellitus without complications[ICD10: E11.9] Diagnosis: Hypothyroidism, unspecified[ICD10: E03.9] Shalini Iyer MD, [facility] CPT-4: 90403 04/23/2017 ([id number]) 42910 EST. PATIENT, LEVEL III Diagnosis: Other allergic rhinitis[ICD10: J30.89] Shalini Iyer MD, [facility] CPT-4: 12007 04/08/2017 ([id number]) 46008 EST. PATIENT, LEVEL IV Diagnosis: Type 2 diabetes mellitus without complications[ICD10: E11.9] Diagnosis: Essential (primary) hypertension[ICD10: I10] Diagnosis: Hypothyroidism, unspecified[ICD10: E03.9] Diagnosis: Allergic rhinitis due to pollen[ICD10: J30.1] Shalini Iyer MD, [facility] CPT-4: 90103 01/21/2017 ([id number]) 06640 EST. PATIENT, LEVEL IV Diagnosis: Essential (primary) hypertension[ICD10: I10] Diagnosis: Mixed hyperlipidemia[ICD10: E78.2] Diagnosis: Hypothyroidism, unspecified[ICD10: E03.9] Diagnosis: Pain in left knee[ICD10: M25.562] Diagnosis: Type 2 diabetes mellitus without complications[ICD10: E11.9] Shalini Iyer MD, [facility] CPT-4: 15871 10/19/2016 ([id number]) 89812 EST. PATIENT, LEVEL IV Diagnosis: Essential (primary) hypertension[ICD10: I10] Diagnosis: Type 2 diabetes mellitus without complications[ICD10: E11.9] Diagnosis: Hypothyroidism, unspecified[ICD10: E03.9] Diagnosis: Mixed hyperlipidemia[ICD10: E78.2] Shalini Iyer MD, [facility] CPT-4: 26345 07/23/2016 ([id number]) 81708 EST. PATIENT, LEVEL III Diagnosis: Acute recurrent maxillary sinusitis[ICD10: J01.01] Shalini Iyer MD, [facility] CPT-4: 82860 05/19/2016 ([id number]) 64418 EST. PATIENT, LEVEL III Diagnosis: Type 2 diabetes mellitus without complications[ICD10: E11.9] Diagnosis: Essential (primary) hypertension[ICD10: I10] Diagnosis: Allergic rhinitis due to pollen[ICD10: J30.1] Shalini Iyer MD, [facility] CPT-4: 77199 04/21/2016 ([id number]) 51758 EST. PATIENT, LEVEL III Diagnosis: Pain in left knee[ICD10: M25.562] Diagnosis: Localized edema[ICD10: R60.0] Shalini Iyer MD, [facility] CPT-4: 72098 03/26/2016 ([id number]) 07922 EST. PATIENT, LEVEL IV Diagnosis: Essential (primary) hypertension[ICD10: I10] Diagnosis: Type 2 diabetes mellitus without complications[ICD10: E11.9] Diagnosis: Pain in right shoulder[ICD10: M25.511] Shalini Iyer MD, [facility] CPT-4: 23687 01/27/2016 ([id number]) 55104 EST. PATIENT, LEVEL IV Diagnosis: Essential (primary) hypertension[ICD10: I10] Diagnosis: Allergic rhinitis due to pollen[ICD10: J30.1] Diagnosis: Type 2 diabetes mellitus without complications[ICD10: E11.9] Diagnosis: Hypothyroidism, unspecified[ICD10: E03.9] Shalini Iyer MD, [facility] CPT-4: 64808 10/28/2015 ([id number]) 33292 EST. PATIENT, LEVEL IV Diagnosis: Essential (primary) hypertension[ICD10: I10] Diagnosis: Type 2 diabetes mellitus without complications[ICD10: E11.9] Diagnosis: Hypothyroidism, unspecified[ICD10: E03.9] Diagnosis: Lichen planus, unspecified[ICD10: L43.9] Shalini Iyer MD, [facility] CPT-4: 60857 08/27/2015 ([id number]) 13401 EST. PATIENT, LEVEL III Diagnosis: Cervical disc disorder with radiculopathy, unspecified cervical region[ICD10: M50.10] Diagnosis: Type 2 diabetes mellitus without complications[ICD10: E11.9] Diagnosis: Essential (primary) hypertension[ICD10: I10] Shalini Iyer MD, [facility] CPT-4: 97150 06/06/2015 ([id number]) 05041 EST. PATIENT, LEVEL III Diagnosis: Cervicalgia[ICD10: M54.2] Shalini Iyer MD, [facility] CPT-4: 92940 04/30/2015 ([id number]) 80526 EST. PATIENT, LEVEL III Diagnosis: Essential (primary) hypertension[ICD10: I10] Diagnosis: Type 2 diabetes mellitus without complications[ICD10: E11.9] Diagnosis: Primary osteoarthritis, unspecified site[ICD10: M19.91] Shalini Iyer MD, [facility] CPT-4: 64042 04/23/2015 ([id number]) 20177 EST. PATIENT, LEVEL IV Diagnosis: ESSENTIAL HYPERTENSION[ICD9: 401.9] Diagnosis: DIABETES TYPE II[ICD9: 250.00] Diagnosis: Osteoarthritis[ICD9: 715.90] Shalini Iyer MD, [facility] CPT-4: 08103 03/04/2015 ([id number]) OFFICE VISIT, NEW - LEVEL 4 Diagnosis: ESSENTIAL HYPERTENSION[ICD9: 401.9] Diagnosis: Hypothyroidism[ICD9: 244.9] Diagnosis: DIABETES TYPE II[ICD9: 250.00] Diagnosis: ACTINIC KERATOSIS[ICD9: 702.0] Shalini Iyer MD, [facility] CPT-4: 47352 12/04/2014 Plan of Care Planned Activity Notes Codes Status Date Appointment: Ayana Iyer WPtel: [address] [place], [place] [phone] (15 min) Moderate 08/03/2017 Patient Education: Patient Medication Summary Completed 08/03/2017 Appointment: Shalini Mitchell WPtel: [address] [place], [place] [phone] [place] (30 min) Complex 07/05/2017 Patient Education: Patient Medication Summary Completed 07/05/2017 Patient Education: Patient Medication Summary Completed 04/30/2017 Care Plan: %Hba1C LOINC : 35198-8 Pending 04/30/2017 Appointment: Shalini Mitchell WPtel: [address] [place], [place] [phone] [place] (30 min) Complex 04/23/2017 Patient Education: Patient Medication Summary Completed 04/23/2017 Appointment: Shalini Mitchell WPtel: [phone] [phone] [place] (15 min) Moderate 04/08/2017 Patient Education: Patient Medication Summary Completed 04/08/2017 Appointment: Nurse Visit 04/02/2017 Appointment: Injection 04/01/2017 Patient Education: Patient Medication Summary Completed 04/01/2017 Appointment: Shalini Mitchell WPtel: [phone] [phone] [place] (15 min) Moderate 01/21/2017 Patient Education: Patient Medication Summary Completed 01/21/2017 Appointment: Shalini Mitchell WPtel: [phone] [phone] [place] (15 min) Moderate 01/18/2017 Appointment: Shalini Mitchell WPtel: [phone] [phone] [place] (30 min) Complex 10/19/2016 Patient Education: Patient Medication Summary Completed 10/19/2016 Appointment: Shalini Mitchell WPtel: [phone] [phone] [place] (30 min) Complex 07/23/2016 Patient Education: Patient Medication Summary Completed 07/23/2016 Appointment: Shalini Mitchell WPtel: [phone] [phone] [place] (15 min) Moderate 05/19/2016 Patient Education: Patient Medication Summary Completed 05/19/2016 Appointment: Injection 05/12/2016 Patient Education: Patient Medication Summary Completed 05/12/2016 Appointment: Injection 05/05/2016 Patient Education: Patient Medication Summary Completed 05/05/2016 [facility] [phone] [phone] [place] ([place] min) Complex 05/01/2016 Appointment: Injection 04/24/2016 Patient Education: Patient Medication Summary Completed 04/24/2016 Appointment: Shalini Mitchell WPtel: [phone] [phone] (30 min) Complex 04/21/2016 Patient Education: Patient Medication Summary Completed 04/21/2016 App[facility]ment[facility] [phone] [phone] (15 min) Moderate 03/26/2016 Patient Education: Patient Medication Summary Completed 03/26/2016 Appointment: (30 min) Complex 01/27/2016 Patient Education: Patient Medication Summary Completed 01/27/2016 Appointment: (30 min) Complex 11/26/2015 Patient Education: Patient Medication Summary Completed 10/28/2015 Patient Education: Hypertension Completed 10/28/2015 Patient Education: Patient Medication Summary Completed 08/27/2015 Patient Education: Hypertension Completed 08/27/2015 Appointment: (30 min) Complex 06/06/2015 Patient Education: Patient Medication Summary Completed 06/06/2015 Patient Education: Hypertension Completed 06/06/2015 Patient Education: Patient Medication Summary Completed 04/30/2015 Patient Education: .Cervicalgia Neck Pain Completed 04/30/2015 Appointment: (15 min) Moderate 04/23/2015 Patient Education: Patient Medication Summary Completed 04/23/2015 Patient Education: Hypertension Completed 04/23/2015 Appointment: Follow up 03/04/2015 Patient Education: Patient Medication Summary Completed 03/04/2015 Patient Education: Hypertension Completed 03/04/2015 Appointment: (S) New Patient 12/04/2014 Patient Education: Patient Medication Summary Completed 12/04/2014 Patient Education: Hypertension Completed 12/04/2014 Care Plan: COMPLETE CBC AUTOMATED LOINC : 21365-6 Ordered 12/04/2014 Instructions No Instructions
--- OUTSIDE RECORDS SUMMARY | 2018-04-26 12:09 | XMS REPORT | CCD ---
Author Author Shalini Mitchell MD, [facility] Address [address] [place] [address] Phone Care Team Providers Care Manufacturing Clerk Name Role Phone PP Unavailable CCM Unavailable Summary Purpose Interface Exchange Insurance Providers Payer name Policy type / Coverage type Covered constitution party ID Effective Begin Date Effective End Date WPS Medicare Part B Medicare Part B [id number] Unknown Unknown [facility] Medicare Part B [id number] Unknown Unknown Family History Family History data not found Social History Social History Element Codes Description Effective Dates Marital status Unknown 12/04/2014 Number of children Unknown 3 12/04/2014 Employment Unknown Retired [employer] 12/04/[address]: 1085650 Quit over 10 years ago 12/04/[address]: 564022429 Never drinks alcohol 12/04/2014 Allergies, Adverse Reactions, Alerts Allergies, Adverse Reactions, Alerts data not found Past Medical History Illness Codes Condition Status Onset Date Resolved Date Essential (primary) hypertension ICD-9: 401.1 ICD-10: I10 [...] Problems Condition Codes Effective Dates Condition Status Essential (primary) hypertension ICD-9: 401.1 ICD-10: I10 [...] Start Date Stop Date Status Fill Instructions losartan 50 mg tablet RxNorm: 475957 TAKE ONE TABLET BY MOUTH ONCE DAILY IN THE MORNING 08/02/2017 No Stop Date Active simvastatin 10 mg tablet RxNorm: 427597 TAKE ONE TABLET BY MOUTH ONCE DAILY 08/02/2017 No Stop Date Active levothyroxine 137 mcg tablet RxNorm: 254197 TAKE ONE TABLET BY MOUTH ONCE DAILY 07/26/2017 No Stop Date Active Flonase Allergy Relief 50 mcg/actuation nasal spray, suspension RxNorm: 7598677 USE TWO SPRAY(S) IN EACH NOSTRIL ONCE DAILY 06/28/2017 No Stop Date Active baclofen 10 mg tablet RxNorm: 574222 TAKE ONE TABLET BY MOUTH THREE TIMES DAILY NEEDED FOR MUSCLE SPASM 06/28/2017 No Stop Date Active Kenalog 40 mg/mL suspension for injection RxNorm: 5874714 1 Milliliter(s) Inj 04/08/2017 04/08/2017 Inactive doxycycline hyclate 100 mg tablet RxNorm: 357966 1 Tablet(s) PO BID 04/01/2017 04/10/2017 Inactive PLEASE GIVE 90 DAY SUPPLY losartan 50 mg tablet RxNorm: 965075 TAKE ONE TABLET BY MOUTH ONCE DAILY IN THE MORNING 02/01/2017 07/30/2017 Inactive levothyroxine 137 mcg tablet RxNorm: 705678 1 Tablet(s) PO daily 01/22/2017 07/20/2017 Inactive hold until he calls for fill- using samples from office metoprolol succinate ER 25 mg tablet,extended release 24 hr RxNorm: 241982 1 Tablet(s) PO daily 01/11/2017 01/05/2018 Active tamsulosin 0.4 mg capsule RxNorm: 188148 TAKE ONE CAPSULE BY MOUTH ONCE DAILY 01/11/2017 10/07/2017 Active simvastatin 10 mg tablet RxNorm: 684889 TAKE ONE TABLET BY MOUTH ONCE DAILY 12/17/2016 06/14/2017 Inactive levothyroxine 150 mcg tablet RxNorm: 321934 1 Tablet(s) PO daily 09/24/2016 01/21/2017 Inactive doxycycline hyclate 100 mg tablet RxNorm: 021461 1 Tablet(s) PO daily 07/30/2016 01/25/2017 Inactive PLEASE GIVE 90 DAY SUPPLY doxycycline hyclate 100 mg tablet RxNorm: 982475 1 Tablet(s) PO daily 07/27/2016 07/29/2016 Inactive PLEASE GIVE 90 DAY SUPPLY quinine 324 mg capsule RxNorm: 389421 1 Capsule(s) PO HS PRN No Stop Date Active LEG CRAMPS doxycycline hyclate 100 mg tablet RxNorm: 440678 1 Tablet(s) PO daily 05/29/2016 07/26/2016 Inactive PLEASE GIVE 90 DAY SUPPLY Kenalog 40 mg/mL suspension for injection RxNorm: 4706873 Milliliter(s) Inj 05/19/2016 05/19/2016 Inactive Levaquin 500 mg tablet RxNorm: 989032 1 Tablet(s) PO daily 07/201505/25/2016 Inactive Zithromax Z-Anil 250 mg tablet RxNorm: 868622 1 Tablet(s) PO UD 05/14/2016 09/09/2016 Inactive zpack Kenalog 40 mg/mL suspension for injection RxNorm: 1996328 Milliliter(s) Inj 05/12/2016 05/12/2016 Inactive Zithromax Z-Anil 250 mg tablet RxNorm: 461415 1 Tablet(s) PO UD 05/08/2016 05/12/2016 Inactive zpack Flonase Allergy Relief 50 mcg/actuation nasal spray, suspension RxNorm: 0949609 2 [place] NASAL daily 04/21/20162016 Inactive levothyroxine 150 mcg tablet RxNorm: 688845 1 Tablet(s) PO daily 04/21/2016 09/23/2016 Inactive baclofen 10 mg tablet RxNorm: 348381 1 Tablet(s) PO TID as needed for muscle spasms 04/10/2016 11/05/2016 Inactive Flonase Allergy Relief 50 mcg/actuation nasal spray, suspension RxNorm: 6837720 2 [place] NASAL daily 01/27/20162015 Inactive losartan 50 mg tablet RxNorm: 552364 1 Tablet(s) PO QAM 201501/09/2017 Inactive magnesium oxide 400 mg tablet RxNorm: 316508 1 Tablet(s) PO daily 01/16/2016 01/09/2017 Inactive omega 4-oax-fkv-fish oil 300 mg-1,000 mg capsule,delayed release RxNorm: 1 Capsule(s) PO daily 01/16/2016 01/09/2017 Inactive ask pt if this is needed- he may use OTC levothyroxine 175 mcg tablet RxNorm: 190657 1 Tablet(s) PO daily 01/16/2016 04/20/2016 Inactive metoprolol succinate ER 25 mg tablet,extended release 24 hr RxNorm: 824192 1 Tablet(s) PO daily 01/16/2016 01/09/2017 Inactive baclofen 10 mg tablet RxNorm: 266988 1 Tablet(s) PO TID as needed for muscle spasms 01/16/2016 04/09/2016 Inactive omega 0-zde-ntb-fish oil 300 mg-1,000 mg capsule,delayed release RxNorm: 1 Capsule(s) PO daily 01/16/2016 01/15/2016 Inactive ask pt if this is needed- he may use OTC simvastatin 10 mg tablet RxNorm: 070578 1 Tablet(s) PO daily 12/16/2016 Inactive tamsulosin 0.4 mg capsule RxNorm: 564439 TAKE ONE CAPSULE BY MOUTH ONCE DAILY 01/05/2016 01/10/2017 Inactive levothyroxine 150 mcg tablet RxNorm: 900827 1 Tablet(s) PO daily 12/05/2015 12/04/2015 Inactive levothyroxine 150 mcg tablet RxNorm: 332471 1 Tablet(s) PO daily 12/05/2015 01/15/2016 Inactive metoprolol succinate ER 25 mg tablet,extended release 24 hr RxNorm: 484751 1 Tablet(s) PO daily 10/22/2015 01/15/2016 Inactive losartan 50 mg tablet RxNorm: 616489 1 Tablet(s) PO QAM 201501/15/2016 Inactive levothyroxine 175 mcg tablet RxNorm: 342694 1 Tablet(s) PO daily 09/09/2015 12/04/2015 Inactive doxycycline hyclate 100 mg tablet RxNorm: 369817 1 Tablet(s) PO daily 08/27/2015 01/15/2016 Inactive PLEASE GIVE 90 DAY SUPPLY doxycycline hyclate 100 mg tablet RxNorm: 335390 1 Tablet(s) PO daily 08/27/2015 08/26/2015 Inactive chlorzoxazone 500 mg tablet RxNorm: 783840 1 Tablet(s) PO Q6 as needed muscle spasms 08/15/2015 03/11/2016 Inactive chlorzoxazone 500 mg tablet RxNorm: 336226 1 Tablet(s) PO Q6 as needed muscle spasms 08/15/2015 08/14/2015 Inactive ketoconazole 2 % shampoo RxNorm: 606148 1 Application TOP UD 08/04/2015 Inactive ketoconazole 2 % shampoo RxNorm: 051696 1 Application TOP UD 01/15/2016 Inactive clobetasol 0.05 % topical solution RxNorm: 568999 1 Application TOP daily 08/01/2015 07/31/2015 Inactive clobetasol 0.05 % topical solution RxNorm: 160940 1 Application TOP daily 08/01/2015 01/15/2016 Inactive levothyroxine 175 mcg tablet RxNorm: 675568 1 Tablet(s) PO daily 07/22/2015 09/08/2015 Inactive doxycycline hyclate 100 mg tablet RxNorm: 769762 1 Tablet(s) PO daily 07/17/2015 08/15/2015 Inactive levothyroxine 175 mcg tablet RxNorm: 765838 Tablet(s) PO every other day 07/17/2015 07/21/2015 Inactive Zithromax Z-Anil 250 mg tablet RxNorm: 101278 1 Tablet(s) PO 05/07/2016 Inactive 1 zpack finasteride 5 mg tablet RxNorm: 974097 1 Tablet(s) PO daily 12/27/2015 Inactive simvastatin 10 mg tablet RxNorm: 995180 1 Tablet(s) PO daily 12/27/2015 Inactive clopidogrel 75 mg tablet RxNorm: 364656 1 Tablet(s) PO daily 01/15/2016 Inactive metoprolol succinate ER 25 mg tablet,extended release 24 hr RxNorm: 520932 1 Tablet(s) PO daily 07/01/2015 10/21/2015 Inactive levothyroxine 150 mcg tablet RxNorm: 223654 1 Tablet(s) PO daily 07/01/2015 07/21/2015 Inactive tamsulosin 0.4 mg capsule RxNorm: 748537 1 Capsule(s) PO daily 07/01/2015 12/27/2015 Inactive losartan 50 mg tablet RxNorm: 003094 1 Tablet(s) PO QAM 201410/17/2015 Inactive levothyroxine 150 mcg tablet RxNorm: 600936 1 Tablet(s) PO daily 07/01/2015 06/30/2015 Inactive Zithromax Z-Anil 250 mg tablet RxNorm: 575858 1 Tablet(s) PO 03/201507/09/2015 Inactive 1 zpack Januvia 100 mg tablet RxNorm: 145256 1/2 Tablet(s) PO BID 201405/22/2015 Inactive Januvia 50 mg tablet RxNorm: 610396 1 Tablet(s) PO BID 201404/22/2015 Inactive chlorzoxazone 500 mg tablet RxNorm: 750477 1 Tablet(s) PO Q6 as needed muscle spasms 01/21/2015 01/20/2015 Inactive baclofen 10 mg tablet RxNorm: 985460 1 Tablet(s) PO TID as needed for muscle spasms 01/21/2015 06/30/2015 Inactive chlorzoxazone 500 mg tablet RxNorm: 262499 1 Tablet(s) PO Q6 as needed muscle spasms 01/21/2015 03/03/2015 Inactive Vitamin D3 2,000 unit tablet RxNorm: 122101 Tablet(s) PO BID No Stop Date Active [SAVINGS FOR NON-COVERED DRUGS -- [id number], PCN: [id number], Group: XXXXX , ID# [id number], Questions: . THIS IS NOT INSURANCE.] Claritin 10 mg tablet RxNorm: 436271 1 Tablet(s) PO daily No Start Date Active aspirin 81 mg tablet RxNorm: 208210 Tablet(s) PO daily No Start Date Active Centrum Silver oral RxNorm: 84670 oral No Start Date Active Calcium Citrate + D 600 mg RxNorm: 630mg PO daily No Start Date Active sodium chloride oral RxNorm: oral No Start Date Active Vitamin C 500 mg chewable tablet RxNorm: 572476 1 Tablet(s) PO No Start Date Active Vitamin B12 Oral RxNorm: oral No Start Date Active Fish Oil (with DHA-EPA) capsule RxNorm: oral No Start Date 01/15/2016 Inactive clopidogrel 75 mg tablet RxNorm: 802985 1 Tablet(s) PO daily No Start Date 06/30/2015 Inactive metoprolol succinate ER 25 mg tablet,extended release 24 hr RxNorm: 887144 1 Tablet(s) PO daily No Start Date 2014 Inactive simvastatin 10 mg tablet RxNorm: 718314 1 Tablet(s) PO daily No Start Date 06/30/2015 Inactive Claritin 10 mg tablet RxNorm: 675562 1 Tablet(s) PO daily No Start Date 07/16/2015 Inactive levothyroxine 175 mcg tablet RxNorm: 731196 Tablet(s) PO every other day No Start Date 06/30/2015 Inactive Vitamin D3 2,000 unit tablet RxNorm: 403586 Tablet(s) PO daily No Start Date 12/03/2014 Inactive losartan 50 mg tablet RxNorm: 992888 1 Tablet(s) PO QAM No Start Date 06/30/2015 Inactive magnesium oxide 400 mg tablet RxNorm: 497360 1 Tablet(s) PO daily No Start Date 01/15/2016 Inactive baclofen 10 mg tablet RxNorm: 999063 1 Tablet(s) PO TID as needed for muscle spasms No Start Date 01/20/2015 Inactive finasteride 5 mg tablet RxNorm: 179325 1 Tablet(s) PO daily No Start Date 06/30/2015 Inactive quinine 324 mg capsule RxNorm: 592120 1 Capsule(s) PO HS PRN No Start Date 06/14/2016 Inactive LEG CRAMPS Vitamin D3 (with calcium carbonate) oral RxNorm: 772925 oral No Start Date 01/15/2016 Inactive Zithromax Z-Anil 250 mg tablet RxNorm: 420095 1 Tablet(s) PO No Start Date 06/25/2015 Inactive 1 zpack levothyroxine 150 mcg tablet RxNorm: 902662 Tablet(s) PO every other day No Start Date 06/30/2015 Inactive Januvia 50 mg tablet RxNorm: 789876 1 Tablet(s) PO daily No Start Date 03/06/2015 Inactive fluticasone 50 mcg/actuation nasal spray,suspension RxNorm: 128304 1 [place] NASAL daily No Start Date 01/15/2016 Inactive tamsulosin ER 0.4 mg capsule,extended release 24 hr RxNorm: 444033 1 Capsule(s) PO daily No Start Date 06/30/2015 Inactive Ellie 180 mg tablet RxNorm: 458263 1 Tablet(s) PO daily No Start Date 01/15/2016 Inactive Medication Administered Medication Codes Instructions Start Date Status Kenalog 40 mg/mL suspension for injection RxNorm: 8861911 1Milliliter 04/08/2017 No longer Active Kenalog 40 mg/mL suspension for injection RxNorm: 2776420 Milliliter 05/19/2016 No longer Active Kenalog 40 mg/mL suspension for injection RxNorm: 4151375 Milliliter 05/12/2016 No longer Active Immunizations Vaccine [...] unspecified site ICD-10: M19.91 ICD-9: 715.90 04/23/2015 DIABETES TYPE II ICD-9: 250.00 2014 ESSENTIAL HYPERTENSION ICD-9: 401.9 03/04 Osteoarthritis ICD-9: 715.90 03/04/2015 Hypothyroidism ICD-9: 244.9 12/04/2014 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 2014 Reason For Visit Reason For Visit Effective Dates Notes diabetes mellitus 07/05/2017 diabetes mellitus 04/23/2017 sinus [...] Observation Code Item Item Code Result Date Cbc With Differential Ord2 WBC 7.36 K/ul [...] 29.5 pg 04/28/2017 Cbc With Differential Ord2 [place]% 14.0 % 04/28/2017 Cbc With Differential Ord2 MCHC 32.9 pg 04/28/2017 Cbc With Differential Ord2 Eos% 3.3 % 04/28/2017 Cbc With Differential Ord2 Baso% 0.5 % 04/28/2017 Cbc With Differential Ord2 PLT 296 K/ul 04/28/2017 Cbc With Differential Ord2 RDW 15.2 % 04/28/2017 Cbc With Differential Ord2 Neut ABS# 4.98 K/ul 04/28/2017 Cbc With Differential Ord2 Lymph ABS# 1.07 K/ul 04/28/2017 Cbc With Differential Ord2 [place] ABS# 1.0 K/ul 04/28/2017 Cbc With Differential Ord2 Eos ABS# 0.2 K/ul 04/28/2017 Cbc With Differential Ord2 Baso ABS# 0.0 K/ul 04/28/2017 Free T4 Dfx079 FREE T4 1.07 ng/dL 04/28/2017 %Hba1C Bod549 % HbA1c 58308-0 6.5 % 04/28/2017 %Hba1C Kfg501 Gluc Ave 140 mg/dL 04/28/2017 Lipid Ord30 CHOL 132 mg/dL 04/28/2017 Lipid Ord30 HDL 54.0 mg/dl 04/28/2017 Lipid Ord30 TRIG 72 mg/dL 04/28/2017 Lipid Ord30 LDL 64 mg/dL 04/28/2017 Lipid Ord30 C/HDL 2.4 Ratio 04/28/2017 Tsh Ord6 hTSH II 1.64 uIU/mL 04/28/2017 Comp Metabolic Mkf222 NA 140 mEq/L 04/28/2017 Comp Metabolic Jvc802 K 4.6 mEq/L 04/28/2017 Comp Metabolic Qvp606 CL 104 mEq/L 04/28/2017 Comp Metabolic Dur111 CO2 27.0 mEq/L 04/28/2017 Comp Metabolic Ufg613 ANION GAP 14 04/28/2017 Comp Metabolic Gga398 GLUCOSE 141 mg/dL 04/28/2017 Comp Metabolic Zus574 Creat 1.0 mg/dL 04/28/2017 Comp Metabolic Gql052 eGFR 79 ml/min/1.73m2 04/28/2017 Comp Metabolic Wwj868 BUN 26 mg/dL 04/28/2017 Comp Metabolic Gke939 B/C Ratio 26.8 Ratio 04/28/2017 Comp Metabolic Pnz350 CALCIUM 9.4 mg/dL 04/28/2017 Comp Metabolic Qek172 ALK PHOS 66 U/L 04/28/2017 Comp Metabolic Kxd852 AST(SGOT) 21 U/L 04/28/2017 Comp Metabolic Vjy650 ALT(SGPT) 20 U/L 04/28/2017 Comp Metabolic Rax099 BILI T 1.3 mg/dL 04/28/2017 Comp Metabolic Qom200 ALBUMIN 4.1 g/dL 04/28/2017 Comp Metabolic Fai972 TPRO 6.3 g/dL 04/28/2017 Comp Metabolic Mha019 GLOB 2.2 g/dL 04/28/2017 Comp Metabolic Lcu603 A/G Ratio 1.9 Ratio 04/28/2017 Comp Metabolic Ayc769 Osmo 287 mOsmo 04/28/2017 Free T4 Skn100 FREE T4 0.96 ng/dL 01/22/2017 Lipid Ord30 CHOL 126 mg/dL 01/22/2017 Lipid Ord30 HDL 43.0 mg/dl 01/22/2017 Lipid Ord30 TRIG 111 mg/dL 01/22/2017 Lipid Ord30 LDL 61 mg/dL 01/22/2017 Lipid Ord30 C/HDL 2.9 Ratio 01/22/2017 Comp Metabolic Bpa578 NA 140 mEq/L 01/22/2017 Comp Metabolic Elo019 K 4.3 mEq/L 01/22/2017 Comp Metabolic Rgi625 CL 104 mEq/L 01/22/2017 Comp Metabolic Sdk402 CO2 29.0 mEq/L 01/22/2017 Comp Metabolic Jep111 ANION GAP 11 01/22/2017 Comp Metabolic Dyr661 GLUCOSE 146 mg/dL 01/22/2017 Comp Metabolic Ajk719 Creat 0.8 mg/dL 01/22/2017 Comp Metabolic Blb429 eGFR 100 ml/min/1.73m2 01/22/2017 Comp Metabolic Rxs213 BUN 19 mg/dL 01/22/2017 Comp Metabolic Dcr143 B/C Ratio 24.1 Ratio 01/22/2017 Comp Metabolic Znp011 CALCIUM 9.2 mg/dL 01/22/2017 Comp Metabolic Goq987 ALK PHOS 60 U/L 01/22/2017 Comp Metabolic Wlh306 AST(SGOT) 18 U/L 01/22/2017 Comp Metabolic Pbn445 ALT(SGPT) 17 U/L 01/22/2017 Comp Metabolic Dri589 BILI T 0.6 mg/dL 01/22/2017 Comp Metabolic Dss922 ALBUMIN 3.7 g/dL 01/22/2017 Comp Metabolic Gez280 TPRO 5.8 g/dL 01/22/2017 Comp Metabolic Bte191 GLOB 2.1 g/dL 01/22/2017 Comp Metabolic Gxl045 A/G Ratio 1.7 Ratio 01/22/2017 Comp Metabolic Oag900 Osmo 284 mOsmo 01/22/2017 Cbc With Differential Ord2 WBC 6.68 K/ul 01/22/2017 Cbc With Differential Ord2 RBC 4.37 M/ul 01/22/2017 Cbc With Differential Ord2 HGB 13.2 g/dl 01/22/2017 Cbc With Differential Ord2 Neut% 67.6 % 01/22/2017 Cbc With Differential Ord2 HCT 40.1 % 01/22/2017 Cbc With Differential Ord2 Lymph% 15.1 % 01/22/2017 Cbc With Differential Ord2 MCV 91.8 fl 01/22/2017 Cbc With Differential Ord2 [place]% 14.1 % 01/22/2017 Cbc With Differential Ord2 MCH 30.2 pg 01/22/2017 Cbc With Differential Ord2 Eos% [...] 1.01 K/ul 01/22/2017 Cbc With Differential Ord2 [place] ABS# 0.9 K/ul 01/22/2017 Cbc With Differential Ord2 Eos ABS# 0.2 K/ul 01/22/2017 Cbc With Differential Ord2 Baso ABS# 0.1 K/ul 01/22/2017 Tsh Ord6 hTSH II 0.26 uIU/mL 01/22/2017 %Hba1C Xya437 % HbA1c 95033-5 6.6 % 01/22/2017 %Hba1C Vgc450 Gluc Ave 143 mg/dL 01/22/2017 Tsh Ord6 hTSH II 0.70 uIU/mL 10/23/2016 %Hba1C Bpr562 % HbA1c 40246-2 7.0 % 10/23/2016 %Hba1C Wcd560 Gluc Ave 154 mg/dL 10/23/2016 Free T4 Yfb260 FREE T4 0.99 ng/dL 10/23/2016 Lipid Ord30 CHOL 134 mg/dL 10/23/2016 Lipid Ord30 HDL 42.0 mg/dl 10/23/2016 Lipid Ord30 TRIG 101 mg/dL 10/23/2016 Lipid Ord30 LDL 72 mg/dL 10/23/2016 Lipid Ord30 C/HDL 3.2 Ratio 10/23/2016 Cbc With Differential Ord2 WBC 5.81 K/ul 10/23/2016 Cbc With Differential Ord2 RBC 4.65 M/ul 10/23/2016 Cbc With Differential Ord2 HGB 14.3 g/dl 10/23/2016 Cbc With Differential Ord2 HCT 43.2 % 10/23/2016 Cbc With Differential Ord2 Neut% 69.7 % 10/23/2016 Cbc With Differential Ord2 Lymph% 13.6 % 10/23/2016 Cbc With Differential Ord2 MCV 92.9 fl 10/23/2016 Cbc With Differential Ord2 MCH 30.8 pg 10/23/2016 Cbc With Differential Ord2 [place]% 12.7 % 10/23/2016 Cbc With Differential Ord2 Eos% 3.3 % 10/23/2016 Cbc With Differential Ord2 MCHC 33.1 pg 10/23/2016 Cbc With Differential Ord2 Baso% 0.7 % 10/23/2016 Cbc With Differential Ord2 PLT 304 K/ul 10/23/2016 Cbc With Differential Ord2 Neut ABS# 4.05 K/ul 10/23/2016 Cbc With Differential Ord2 RDW 13.5 % 10/23/2016 Cbc With Differential Ord2 Lymph ABS# 0.79 K/ul 10/23/2016 Cbc With Differential Ord2 [place] ABS# 0.7 K/ul 10/23/2016 Cbc With Differential Ord2 Eos ABS# 0.2 K/ul 10/23/2016 Cbc With Differential Ord2 Baso ABS# 0.0 K/ul 10/23/2016 Comp Metabolic Wjy287 NA 141 mEq/L 10/23/2016 Comp Metabolic Cvp118 K 4.3 mEq/L 10/23/2016 Comp Metabolic Sjc521 CL 104 mEq/L 10/23/2016 Comp Metabolic Iai558 CO2 29.0 mEq/L 10/23/2016 Comp Metabolic Dvl485 ANION GAP 12 10/23/2016 Comp Metabolic Rne792 GLUCOSE 156 mg/dL 10/23/2016 Comp Metabolic Qns766 Creat 0.9 mg/dL 10/23/2016 Comp Metabolic Hih375 eGFR 85 ml/min/1.73m2 10/23/2016 Comp Metabolic Vnn420 BUN 19 mg/dL 10/23/2016 Comp Metabolic Fgn746 B/C Ratio 20.9 Ratio 10/23/2016 Comp Metabolic Wlc738 CALCIUM 9.2 mg/dL 10/23/2016 Comp Metabolic Dqd008 ALK PHOS 72 U/L 10/23/2016 Comp Metabolic Fxg366 AST(SGOT) 21 U/L 10/23/2016 Comp Metabolic Nhq538 ALT(SGPT) 19 U/L 10/23/2016 Comp Metabolic Vhs342 BILI T 0.8 mg/dL 10/23/2016 Comp Metabolic Zgw055 ALBUMIN 3.8 g/dL 10/23/2016 Comp Metabolic Ghw151 TPRO 6.2 g/dL 10/23/2016 Comp Metabolic Uuz913 GLOB 2.4 g/dL 10/23/2016 Comp Metabolic Yrv576 A/G Ratio 1.6 Ratio 10/23/2016 Comp Metabolic Xbi364 Osmo 287 mOsmo 10/23/2016 %Hba1C Thi977 % HbA1c 79216-9 7.1 % 07/24/2016 %Hba1C Vhc893 Gluc Ave 157 mg/dL 07/24/2016 Tsh Ord6 hTSH II 0.84 uIU/mL 07/24/2016 Comp Metabolic Pwq750 NA 139 mEq/L 07/24/2016 Comp Metabolic Wdj028 K 4.5 mEq/L 07/24/2016 Comp Metabolic Tgw935 CL 103 mEq/L 07/24/2016 Comp Metabolic Wcf760 CO2 30.0 mEq/L 07/24/2016 Comp Metabolic Ohw565 ANION GAP 11 07/24/2016 Comp Metabolic Alp174 GLUCOSE 161 mg/dL 07/24/2016 Comp Metabolic Nrr549 Creat 1.0 mg/dL 07/24/2016 Comp Metabolic Rqz960 eGFR 80 ml/min/1.73m2 07/24/2016 Comp Metabolic Nvo645 BUN 23 mg/dL 07/24/2016 Comp Metabolic Cnp729 B/C Ratio 24.0 Ratio 07/24/2016 Comp Metabolic Unq163 CALCIUM 9.4 mg/dL 07/24/2016 Comp Metabolic Izh646 ALK PHOS 66 U/L 07/24/2016 Comp Metabolic Zwl011 AST(SGOT) 18 U/L 07/24/2016 Comp Metabolic Bxu598 ALT(SGPT) 22 U/L 07/24/2016 Comp Metabolic Huh157 BILI T 1.1 mg/dL 07/24/2016 Comp Metabolic Ffq650 ALBUMIN 4.0 g/dL 07/24/2016 Comp Metabolic Edr458 TPRO 6.4 g/dL 07/24/2016 Comp Metabolic Oxa977 GLOB 2.4 g/dL 07/24/2016 Comp Metabolic Lcv682 A/G Ratio 1.6 Ratio 07/24/2016 Comp Metabolic Tck310 Osmo 285 mOsmo 07/24/2016 Cbc With Differential Ord2 WBC 7.56 [...] 30.6 pg 07/24/2016 Cbc With Differential Ord2 [place]% 13.8 % 07/24/2016 Cbc With Differential Ord2 MCHC 33.0 pg 07/24/2016 Cbc With Differential Ord2 Eos% 2.0 % 07/24/2016 Cbc With Differential Ord2 PLT 287 K/ul 07/24/2016 Cbc With Differential Ord2 Baso% 0.4 % 07/24/2016 Cbc With Differential Ord2 Neut ABS# 4.78 K/ul 07/24/2016 Cbc With Differential Ord2 RDW 15.0 % 07/24/2016 Cbc With Differential Ord2 Lymph ABS# 1.56 K/ul 07/24/2016 Cbc With Differential Ord2 [place] ABS# 1.0 K/ul 07/24/2016 Cbc With Differential Ord2 Eos ABS# 0.2 K/ul 07/24/2016 Cbc With Differential Ord2 Baso ABS# 0.0 K/ul 07/24/2016 Lipid Ord30 CHOL 136 mg/dL 07/24/2016 Lipid Ord30 HDL 52.0 mg/dl 07/24/2016 Lipid Ord30 TRIG 83 mg/dL 07/24/2016 Lipid Ord30 LDL 67 mg/dL 07/24/2016 Lipid Ord30 C/HDL 2.6 Ratio 07/24/2016 Free T4 Wee494 FREE T4 0.92 ng/dL 03/11/2016 Tsh Ord6 hTSH II 0.92 uIU/mL 03/11/2016 %Hba1C Wuv184 % HbA1c 07769-4 7.0 % 03/11/2016 %Hba1C Vde267 Gluc Ave 154 mg/dL 03/11/2016 Cbc With Differential Ord2 WBC 6.21 K/ul [...] 28.8 pg 11/27/2015 Cbc With Differential Ord2 [place]% 13.5 % 11/27/2015 Cbc With Differential Ord2 MCHC 32.8 pg 11/27/2015 Cbc With Differential Ord2 Eos% 3.9 % 11/27/2015 Cbc With Differential Ord2 PLT 304 K/ul 11/27/2015 Cbc With Differential Ord2 Baso% 1.0 % 11/27/2015 Cbc With Differential Ord2 Neut ABS# 3.81 K/ul 11/27/2015 Cbc With Differential Ord2 RDW 14.7 % 11/27/2015 Cbc With Differential Ord2 Lymph ABS# 1.26 K/ul 11/27/2015 Cbc With Differential Ord2 [place] ABS# 0.8 K/ul 11/27/2015 Cbc With Differential Ord2 Eos ABS# 0.2 K/ul 11/27/2015 Cbc With Differential Ord2 Baso ABS# 0.1 K/ul 11/27/2015 Cbc With Differential Ord2 New Analyzer Notice Please note new ref ranges starting 07-31-2015 due to implemntation of new five part differential hematolgy analyzer. 11/27/2015 Lipid Ord30 CHOL 123 mg/dL 11/27/2015 Lipid Ord30 HDL 41.0 mg/dl 11/27/2015 Lipid Ord30 TRIG 130 mg/dL 11/27/2015 Lipid Ord30 LDL 56 mg/dL 11/27/2015 Lipid Ord30 C/HDL 3.0 Ratio 11/27/2015 %Hba1C Zgy566 % HbA1c 05693-6 7.1 % 11/27/2015 %Hba1C Cbb070 Gluc Ave 157 mg/dL 11/27/2015 Free T4 Kip096 FREE T4 0.95 ng/dL 11/27/2015 Tsh Ord6 hTSH II 0.35 uIU/mL 11/27/2015 Comp Metabolic Fce160 NA 139 mEq/L 11/27/2015 Comp Metabolic Qky305 K 4.4 mEq/L 11/27/2015 Comp Metabolic Snm770 CL 105 mEq/L 11/27/2015 Comp Metabolic Nql335 CO2 28.0 mEq/L 11/27/2015 Comp Metabolic Ids700 ANION GAP 10 11/27/2015 Comp Metabolic Ryy176 GLUCOSE 139 mg/dL 11/27/2015 Comp Metabolic Nop010 Creat 0.9 mg/dL 11/27/2015 Comp Metabolic Ybn485 eGFR 89 ml/min/1.73m2 11/27/2015 Comp Metabolic Kgu404 BUN 15 mg/dL 11/27/2015 Comp Metabolic Luk981 B/C Ratio 17.2 Ratio 11/27/2015 Comp Metabolic Ctf221 CALCIUM 8.8 mg/dL 11/27/2015 Comp Metabolic Rny679 ALK PHOS 78 U/L 11/27/2015 Comp Metabolic Qlb209 AST(SGOT) 18 U/L 11/27/2015 Comp Metabolic Qlm483 ALT(SGPT) 16 U/L 11/27/2015 Comp Metabolic Tgl496 BILI T 0.9 mg/dL 11/27/2015 Comp Metabolic Xem192 ALBUMIN 3.7 g/dL 11/27/2015 Comp Metabolic Nys481 TPRO 6.2 g/dL 11/27/2015 Comp Metabolic Gtu835 GLOB 2.5 g/dL 11/27/2015 Comp Metabolic Edr643 A/G Ratio 1.5 Ratio 11/27/2015 Comp Metabolic Ycf924 Osmo 281 mOsmo 11/27/2015 %Hba1C Nhj520 % HbA1c 48362-1 6.9 % 08/28/2015 %Hba1C Ect312 Gluc Ave 151 mg/dL 08/28/2015 Free T4 Cgx925 FREE T4 0.87 ng/dL 08/28/2015 Lipid Ord30 CHOL 147 mg/dL 08/28/2015 Lipid Ord30 HDL 65.0 mg/dl 08/28/2015 Lipid Ord30 TRIG 86 mg/dL 08/28/2015 Lipid Ord30 LDL 65 mg/dL 08/28/2015 Lipid Ord30 C/HDL 2.3 Ratio 08/28/2015 Tsh Ord6 hTSH II 2.87 uIU/mL 08/28/2015 Comp Metabolic Ayx841 NA 139 mEq/L 08/28/2015 Comp Metabolic Abq999 K 4.5 mEq/L 08/28/2015 Comp Metabolic Jwr921 CL 104 mEq/L 08/28/2015 Comp Metabolic Asr414 CO2 28.0 mEq/L 08/28/2015 Comp Metabolic Fpj535 ANION GAP 12 08/28/2015 Comp Metabolic Pty856 GLUCOSE 146 mg/dL 08/28/2015 Comp Metabolic Mxj155 Creat 1.0 mg/dL 08/28/2015 Comp Metabolic Guv419 eGFR 77 ml/min/1.73m2 08/28/2015 Comp Metabolic Kjl068 BUN 21 mg/dL 08/28/2015 Comp Metabolic Gab119 B/C Ratio 21.2 Ratio 08/28/2015 Comp Metabolic Whw787 CALCIUM 9.3 mg/dL 08/28/2015 Comp Metabolic Axq411 ALK PHOS 70 U/L 08/28/2015 Comp Metabolic Mbl421 AST(SGOT) 18 U/L 08/28/2015 Comp Metabolic Qjk659 ALT(SGPT) 16 U/L 08/28/2015 Comp Metabolic Qde495 BILI T 0.6 mg/dL 08/28/2015 Comp Metabolic Dvn631 ALBUMIN 4.0 g/dL 08/28/2015 Comp Metabolic Xeq886 TPRO 6.4 g/dL 08/28/2015 Comp Metabolic Ltp565 GLOB 2.4 g/dL 08/28/2015 Comp Metabolic Mfg371 A/G Ratio 1.7 Ratio 08/28/2015 Comp Metabolic Pny213 Osmo 283 mOsmo 08/28/2015 Cbc With Differential Ord2 WBC 6.44 K/ul 08/28/2015 Cbc With Differential Ord2 RBC 4.66 M/ul 08/28/2015 Cbc With Differential Ord2 HGB 13.0 g/dl 08/28/2015 Cbc With Differential Ord2 HCT 40.0 % 08/28/2015 Cbc With Differential Ord2 Neut% 58.4 % 08/28/2015 Cbc With Differential Ord2 MCV 85.8 fl 08/28/2015 Cbc With Differential Ord2 Lymph% 23.8 % 08/28/2015 Cbc With Differential Ord2 Otoe% 12.7 % 08/28/2015 Cbc With Differential Ord2 MCH 27.9 pg 08/28/2015 Cbc With Differential Ord2 MCHC 32.5 pg 08/28/2015 Cbc With Differential Ord2 Eos% 4.0 % 08/28/2015 Cbc With Differential Ord2 PLT 323 K/ul 08/28/2015 Cbc With Differential Ord2 Baso% 1.1 % 08/28/2015 Cbc With Differential Ord2 Neut ABS# 3.76 K/ul 08/28/2015 Cbc With Differential Ord2 RDW 18.3 % 08/28/2015 Cbc With Differential Ord2 Lymph ABS# 1.53 K/ul 08/28/2015 Cbc With Differential Ord2 Otoe ABS# 0.8 K/ul 08/28/2015 Cbc With Differential Ord2 Eos ABS# 0.3 K/ul 08/28/2015 Cbc With Differential Ord2 Baso ABS# 0.1 K/ul 08/28/2015 Cbc With Differential Ord2 New Analyzer Notice Please note new ref ranges starting 07-31-2015 due to implemntation of new five part differential hematolgy analyzer. 08/28/2015 %Hba1C Qvg526 % HbA1c 25258-1 6.7 % 03/06/2015 %Hba1C Rsj724 Gluc Ave 146 mg/dL 03/06/2015 Cbc With Differential Ord2 WBC 8.4 [...] Ord2 RDW 14.5 % 03/06/2015 Comp Metabolic Uqs418 NA 137 mEq/L 03/06/2015 Comp Metabolic Adl265 K 4.2 mEq/L 03/06/2015 Comp Metabolic Uvx735 CL 103 mEq/L 03/06/2015 Comp Metabolic Dxt488 CO2 30.0 mEq/L 03/06/2015 Comp Metabolic Whe255 ANION GAP 8 03/06/2015 Comp Metabolic Jba913 GLUCOSE 156 mg/dL 03/06/2015 Comp Metabolic Evh858 Creat 1.0 mg/dL 03/06/2015 Comp Metabolic Txb749 eGFR 75 ml/min/1.73m2 03/06/2015 Comp Metabolic Ewi771 BUN 17 mg/dL 03/06/2015 Comp Metabolic Lwy680 B/C Ratio 16.7 Ratio 03/06/2015 Comp Metabolic Ywy890 CALCIUM 9.2 mg/dL 03/06/2015 Comp Metabolic Ssi276 ALK PHOS 75 U/L 03/06/2015 Comp Metabolic Oyn279 AST(SGOT) 17 U/L 03/06/2015 Comp Metabolic Uuu251 ALT(SGPT) 16 U/L 03/06/2015 Comp Metabolic Cfp185 BILI T 0.8 mg/dL 03/06/2015 Comp Metabolic Qla994 ALBUMIN 4.0 g/dL 03/06/2015 Comp Metabolic Jwu430 TPRO 6.3 g/dL 03/06/2015 Comp Metabolic Hvi145 GLOB 2.3 g/dL 03/06/2015 Comp Metabolic Inz376 A/G Ratio 1.7 Ratio 03/06/2015 Comp Metabolic Kxm134 Osmo 279 mOsmo 03/06/2015 Free T4 Opt965 FREE T4 1.02 ng/dL 03/06/2015 Tsh Ord6 hTSH II 0.98 uIU/mL 03/06/2015 Lipid Ord30 CHOL 137 mg/dL 03/06/2015 Lipid Ord30 HDL 48.0 mg/dl 03/06/2015 Lipid Ord30 TRIG 121 mg/dL 03/06/2015 Lipid Ord30 LDL 65 mg/dL 03/06/2015 Lipid Ord30 C/HDL 2.9 Ratio 03/06/2015 Review of Systems System Result Effective Dates Constitutional No recent illness 2016 Constitutional No [...] legs 12/04/2014 None Procedures Procedure Codes Date TRIAMCINOLONE ACET INJ NOS CPT-4: J3301 04/08/2017 ADMIN INFLUENZA VIRUS VAC CPT-4: G0008 04/01/2017 FLU VACC PRSV FREE INC ANTIG CPT-4: 43301 04/01/2017 TRIAMCINOLONE ACET INJ NOS CPT-4: J3301 05/19/2016 THER/PROPH/DIAG INJ SC/IM CPT-4: 89316 05/12/2016 TRIAMCINOLONE ACET INJ NOS CPT-4: J3301 05/12/2016 ADMIN PNEUMOCOCCAL VACCINE SNOMED CT: 24101173 CPT-4: G0009 05/05/2016 Pneumococcal Polysaccharide Vaccine, 23-Valent, Ad Formatting Model/CDA Sections, Assigned to/Otilia Ramires CPT-4: 75258Crnwuak 05/05/2016 ADMIN INFLUENZA VIRUS VAC CPT-4: G0008 04/24/2016 FLU VACC 4 YA 3 YRS PLUS IM SNOMED CT: 43277801 CPT-4: 45415 04/24/2016 Vital Signs Date Vital 07/05/2017 Blood Pressure 1: 134/66 Code : 8480-6 BMI: 27.1 Code : 46563-3 Heart Rate 1 : 72 bpm Height: 6' SpO2: 96% Weight: 200 lbs 04/23/2017 Blood Pressure 1: 130/72 Code : 8480-6 BMI: 25.9 Code : 34510-1 Heart Rate 1 : 56 bpm Height: 6' SpO2: 97% Weight: 191 lbs 04/08/2017 Blood Pressure 1: 116/64 Code : 8480-6 BMI: 25.9 Code : 89377-2 Heart Rate 1 : 71 bpm Height: 6' SpO2: 97% Weight: 191 lbs 01/21/2017 Blood Pressure 1: 132/74 Code : 8480-6 BMI: 26.0 Code : 80102-0 Heart Rate 1 : 54 bpm Height: 6' SpO2: 94% Weight: 192 lbs 10/19/2016 Blood Pressure 1: 132/64 Code : 8480-6 BMI: 27.7 Code : 50279-1 Heart Rate 1 : 77 bpm Height: 6' SpO2: 98% Weight: 204 lbs 07/23/2016 Blood Pressure 1: 130/62 Code : 8480-6 BMI: 27.8 Code : 74065-2 Heart Rate 1 : 95 bpm Height: 6' SpO2: 97% Weight: 205 lbs 05/19/2016 Blood Pressure 1: 118/70 Code : 8480-6 BMI: 27.9 Code : 35885-2 Heart Rate 1 : 76 bpm Height: 6' SpO2: 97% Weight: 206 lbs 04/21/2016 Blood Pressure 1: 130/70 Code : 8480-6 BMI: 27.9 Code : 78695-5 Heart Rate 1 : 76 bpm Height: 6' SpO2: 96% Weight: 206 lbs 03/26/2016 Blood Pressure 1: 130/78 Code : 8480-6 BMI: 27.7 Code : 41987-4 Heart Rate 1 : 61 bpm Height: 6' SpO2: 98% Weight: 204 lbs 01/27/2016 Blood Pressure 1: 124/80 Code : 8480-6 BMI: 27.5 Code : 75603-6 Heart Rate 1 : 78 bpm Height: 6' SpO2: 96% Weight: 203 lbs 10/28/2015 Blood Pressure 1: 138/78 Code : 8480-6 BMI: 27.7 Code : 97850-9 Heart Rate 1 : 76 bpm Height: 6' SpO2: 98% Weight: 204 lbs 08/27/2015 Blood Pressure 1: 128/56 Code : 8480-6 BMI: 27.4 Code : 90853-4 Heart Rate 1 : 49 bpm Height: 6' SpO2: 98% Weight: 202 lbs 06/06/2015 Blood Pressure 1: 128/62 Code : 8480-6 BMI: 26.0 Code : 50872-4 Heart Rate 1 : 80 bpm Height: 6' SpO2: 98% Weight: 192 lbs 04/30/2015 Blood Pressure 1: 138/64 Code : 8480-6 BMI: 19.2 Code : 51908-2 Heart Rate 1 : 71 bpm Height: 6' SpO2: 94% Weight: 141 lbs 8 oz 04/23/2015 Blood Pressure 1: 128/64 Code : 8480-6 BMI: 25.6 Code : 06624-1 Heart Rate 1 : 66 bpm Height: 6' SpO2: 98% Weight: 189 lbs 03/04/2015 Blood Pressure 1: 132/50 Code : 8480-6 BMI: 25.8 Code : 46484-3 Heart Rate 1 : 63 bpm Height: 6' SpO2: 97% Weight: 190 lbs 12/04/2014 Blood Pressure 1: 112/68 Code : 8480-6 BMI: 26.9 Code : 24015-6 Heart Rate 1 : 68 bpm Height: 6' Weight: 198 lbs Functional Status No Functional Status data History of Present Illness Symptom Name Status Result Effective Date Notes diabetes mellitus Quality non-insulin dependent 07/05/2017 None [...] data Encounters Encounter Performer Location Codes Date ([id number]) 71213 EST. PATIENT, LEVEL III Diagnosis: Essential (primary) hypertension[ICD10: I10] Shalini Iyer MD, [facility] CPT-4: 52266 07/05/2017 ([id number]) 24799 EST. PATIENT, LEVEL IV Diagnosis: Essential (primary) hypertension[ICD10: I10] Diagnosis: Type 2 diabetes mellitus without complications[ICD10: E11.9] Diagnosis: Hypothyroidism, unspecified[ICD10: E03.9] Shalini Iyer MD, [facility] CPT-4: 52120 04/23/2017 ([id number]) 68446 EST. PATIENT, LEVEL III Diagnosis: Other allergic rhinitis[ICD10: J30.89] Shalini Iyer MD, [facility] CPT-4: 18670 04/08/2017 ([id number]) 20542 EST. PATIENT, LEVEL IV Diagnosis: Type 2 diabetes mellitus without complications[ICD10: E11.9] Diagnosis: Essential (primary) hypertension[ICD10: I10] Diagnosis: Hypothyroidism, unspecified[ICD10: E03.9] Diagnosis: Allergic rhinitis due to pollen[ICD10: J30.1] Shalini Iyer MD, [facility] CPT-4: 89854 01/21/2017 ([id number]) 53952 EST. PATIENT, LEVEL IV Diagnosis: Essential (primary) hypertension[ICD10: I10] Diagnosis: Mixed hyperlipidemia[ICD10: E78.2] Diagnosis: Hypothyroidism, unspecified[ICD10: E03.9] Diagnosis: Pain in left knee[ICD10: M25.562] Diagnosis: Type 2 diabetes mellitus without complications[ICD10: E11.9] Shalini Iyer MD, [facility] CPT-4: 34406 10/19/2016 ([id number]) 95995 EST. PATIENT, LEVEL IV Diagnosis: Essential (primary) hypertension[ICD10: I10] Diagnosis: Type 2 diabetes mellitus without complications[ICD10: E11.9] Diagnosis: Hypothyroidism, unspecified[ICD10: E03.9] Diagnosis: Mixed hyperlipidemia[ICD10: E78.2] Shalini Iyer MD, [facility] CPT-4: 32732 07/23/2016 ([id number]) 07056 EST. PATIENT, LEVEL III Diagnosis: Acute recurrent maxillary sinusitis[ICD10: J01.01] Shalini Iyer MD, [facility] CPT-4: 49329 05/19/2016 ([id number]) 14595 EST. PATIENT, LEVEL III Diagnosis: Type 2 diabetes mellitus without complications[ICD10: E11.9] Diagnosis: Essential (primary) hypertension[ICD10: I10] Diagnosis: Allergic rhinitis due to pollen[ICD10: J30.1] Shalini Iyer MD, [facility] CPT-4: 03392 04/21/2016 ([id number]) 83962 EST. PATIENT, LEVEL III Diagnosis: Pain in left knee[ICD10: M25.562] Diagnosis: Localized edema[ICD10: R60.0] Shalini Iyer MD, [facility] CPT-4: 58251 03/26/2016 ([id number]) 71348 EST. PATIENT, LEVEL IV Diagnosis: Essential (primary) hypertension[ICD10: I10] Diagnosis: Type 2 diabetes mellitus without complications[ICD10: E11.9] Diagnosis: Pain in right shoulder[ICD10: M25.511] Shalini Iyer MD, [facility] CPT-4: 49381 01/27/2016 ([id number]) 01817 EST. PATIENT, LEVEL IV Diagnosis: Essential (primary) hypertension[ICD10: I10] Diagnosis: Allergic rhinitis due to pollen[ICD10: J30.1] Diagnosis: Type 2 diabetes mellitus without complications[ICD10: E11.9] Diagnosis: Hypothyroidism, unspecified[ICD10: E03.9] Shalini Iyer MD, [facility] CPT-4: 82617 10/28/2015 ([id number]) 34395 EST. PATIENT, LEVEL IV Diagnosis: Essential (primary) hypertension[ICD10: I10] Diagnosis: Type 2 diabetes mellitus without complications[ICD10: E11.9] Diagnosis: Hypothyroidism, unspecified[ICD10: E03.9] Diagnosis: Lichen planus, unspecified[ICD10: L43.9] Shalini Iyer MD, [facility] CPT-4: 51400 08/27/2015 ([id number]) 52650 EST. PATIENT, LEVEL III Diagnosis: Cervical disc disorder with radiculopathy, unspecified cervical region[ICD10: M50.10] Diagnosis: Type 2 diabetes mellitus without complications[ICD10: E11.9] Diagnosis: Essential (primary) hypertension[ICD10: I10] Shalini Iyer MD, [facility] CPT-4: 59051 06/06/2015 ([id number]) 18851 EST. PATIENT, LEVEL III Diagnosis: Cervicalgia[ICD10: M54.2] Shalini Iyer MD, [facility] CPT-4: 49394 04/30/2015 ([id number]) 11120 EST. PATIENT, LEVEL III Diagnosis: Essential (primary) hypertension[ICD10: I10] Diagnosis: Type 2 diabetes mellitus without complications[ICD10: E11.9] Diagnosis: Primary osteoarthritis, unspecified site[ICD10: M19.91] Shalini Iyer MD, [facility] CPT-4: 55450 04/23/2015 ([id number]) 84262 EST. PATIENT, LEVEL IV Diagnosis: ESSENTIAL HYPERTENSION[ICD9: 401.9] Diagnosis: DIABETES TYPE II[ICD9: 250.00] Diagnosis: Osteoarthritis[ICD9: 715.90] Shalini Iyer MD, [facility] CPT-4: 51431 03/04/2015 ([id number]) OFFICE VISIT, NEW - LEVEL 4 Diagnosis: ESSENTIAL HYPERTENSION[ICD9: 401.9] Diagnosis: Hypothyroidism[ICD9: 244.9] Diagnosis: DIABETES TYPE II[ICD9: 250.00] Diagnosis: ACTINIC KERATOSIS[ICD9: 702.0] Shalini Iyer MD, [facility] CPT-4: 15682 12/04/2014 Plan of Care Planned Activity Notes Codes Status Date Visit Plan: Hypertension - well controlled - continue with current medications, continue with no added salt diet. Pt has been encouraged to exercise daily. The pt has been advised to call the office if there are any acute concerns about change in blood pressure readings at home. 07/05/2017 Appointment: Shalini Mitchell WPtel: [phone] [phone] (30 min) Complex 07/05/2017 Patient Education: Patient Medication Summary Completed 07/05/2017 Patient Education: Patient Medication Summary Completed 04/30/2017 Care Plan: [facility] Pending 04/30/2017 Visit Plan: Hypertension - well [...] of control. 04/23/2017 [phone] [facility] Complex 04/23/2017 Patient Education: [...] spray. 04/08/2017 Appointment: Shalini Mitchell WPtel: [phone] [phone] (15 min) Moderate 04/08/2017 Patient Education: Patient Medication Summary Completed 04/08/2017 Appointment: Nurse Visit 04/02/2017 Appointment: Albert 04/01/2017 Patient Education: Patient Medication Summary Completed [...] allergy spray. 01/21/2017 Appointment: Shalini Mitchell WPtel: [phone] [phone] (15 min) Moderate 01/21/2017 Patient Education: Patient Medication Summary Completed 01/21/2017 [phone] ([facility] min) Moderate 01/18/2017 Visit Plan: [...] symptoms persist 10/19/2016 Appointment: Shalini Mitchell WPtel: [phone] [phone] (30 min) Complex 10/19/2016 Patient Education: Patient [...] to medications. 07/23/2016 [phone] [phone] ([facility] min) Complex 07/23/2016 Patient Education: Patient Medication Summary Completed 07/23/2016 Visit Plan: Sinusitis - Pt has acute infection - pain in face, maxillary region, Pt informed to use decongestant, RX given to patient, sinus rinses also recommended. Call if symptoms do not show improvement. Kenalog injection today in the office. 05/19/2016 Appointment: Shalini Mitchell WPtel: [phone] [phone] (15 min) Moderate 05/19/2016 Patient Education: Patient Medication Summary Completed 05/19/2016 Appointment: Injection 05/12/2016 Patient Education: Patient Medication Summary Completed 05/12/2016 Appointment: Injection 05/05/2016 Patient Education: Patient Medication Summary Completed 05/05/2016 Appointment: Shalini Mitchell WPtel: [phone] [phone] (30 min) Complex 05/01/2016 Appointment: Injection [...] nasal steroid allergy spray. 04/21/2016 Appointment: Shalini iMtchell WPtel: [phone] [phone] (30 min) Complex 04/21/2016 Patient Education: Patient [...] edema. 03/26/2016 [phone] [phone] (15 min) Moderate 03/26/2016 Patient Education: Patient [...] controlled. Right shoulder pain-refer for PT at [facility] 01/27/2016 Appointment: (30 min) Complex 01/27/2016 Patient [...] based on previous levels of control. Lichen cmeqll[facility]eajax[facility]ine per Dr Iyer-javi centeno-check labs- continue clobetasol ADDENDUM: Patient has [...] based on previous levels of control. Lichen uifwds-vrpnz-kz [facility] doxycycline per Dr Iyer-refill doxy-check labs- continue clobetasol 08/27/2015 Patient Education: Patient [...] neural foraminal narrowing- wants to see Dr Moraes [facility] 04/30/2015 Patient Education: Patient Medication Summary Completed [...] Care Plan: COMPLETE CBC AUTOMATED LOINC : 33733-4 Ordered 12/04/2014 Instructions Comment . Left knee pain-continue rest, ice, and [...] in blood pressure readings at home. . Diabetes Mellitus -I have recommended for [...] months based on previous levels of control. Check fasting labs . Hypertension - well [...] based on previous levels of control. 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 . Hypertension - well controlled - continue [...] to medications. FASTING LABS ON WEDNESDAY AT [facility] LICENSE PAPERWORK CONCERNING FITTED SHOES FROM DR. [...] for PT if symptoms persist Refer to [facility] for PT-DX right shoulder pain . Hypertension [...] Right shoulder pain-refer for PT at [facility] . Allergies - chronic - recommended [...] 3-liquid nitrogen to lesions x 3 . Sinusitis - Pt has acute infection [...] stenosis-surgery scheduled with Dr Moraes in June SWITCH BACK TO [facility] DAILY FOR ALLERGY [...] start glucosamine 1 tab twice daily . Neck pain-not improving with physical therapy-recommend [...] foraminal narrowing-wants to see Dr Aleisha jain FASTING LABS ON WEDNESDAY AT [facility] LICENSE PAPERWORK CONCERNING FITTED SHOES FROM DR. [...]
--- NOTE | 2018-04-26 12:13 | ED Neurological Problem ---
General Chief Complaint: Neurological Problems Stated Complaint: CONFUSION Nursing Triage Note: AMB TO ROOM REPORTS SINCE YESTERDAY AFTER GETTING OFF TRACTOR AROUND 4PM WAS CONFUSED ABOUT HOW TO DO THINGS IS ALERT TO PERSON PLACE AND TIME. WAS SENT FROM 'S OFFICE. AFTER CT WAS POSITIVE FOR BLEED. REPORTED THAT THE LAST 4 MONTHS HAS FALLEN SEVERAL TIMES Nursing Sepsis Screen: No Definite Risk Source: patient, family Exam Limitations: no limitations History of Present Illness Date Seen by Provider: Apr 26, 2018 Time Seen by Provider: 11:47 Initial Comments Here with report of confusion starting yesterday. Apparently he was mowing with the tractor yesterday and after he was done he was confused. This morning he was more confused including not knowing what a microwave was or how to work the remote control. This is different for him. His doctor's office was contacted and a CT scan of his head was ordered. That CT revealed bilateral subdural hematomas and this prompted them to be sent to the emergency department for evaluation. No recent falls or injury. Patient is only on aspirin and no other blood thinners. Remains somewhat confused but no focal deficits otherwise. Is moving all his extremities and able to walk. Timing/Duration: 24 hours Severity: moderate Associated Symptoms: confusion; No fever/chills, No nausea/vomiting, No slurred speech; trouble walking (increased balance problems) Allergies and Home Medications Allergies Coded Allergies: No Known Drug Allergies (Unverified , 10/09/10) Home Medications Ascorbic Acid 500 Mg Tablet, 500 MG PO DAILY PRN for cold, (Reported) Aspirin 81 Mg Tablet.dr, 81 MG PO HS, (Reported) Baclofen 10 Mg Tablet, 10 MG PO TID PRN for MUSCLE SPASMS, (Reported) Calcium Carbonate 600 Mg Tablet, 600 MG PO DAILY, (Reported) Cholecalciferol (Vitamin D3) 2,000 Unit Capsule, 2,000 UNIT PO DAILY, (Reported) Cyanocobalamin (Vitamin B-12) 2,500 Mcg Tab.chew, 1,250 MCG PO DAILY, (Reported) Finasteride 5 Mg Tablet, 5 MG PO HS, (Reported) Fish Oil/Dha/Epa 1 Each Capsule, 1,200 EACH PO HS, (Reported) Fluticasone Propionate 9.9 Ml [place].susp, 1 SPRAY NS DAILY, (Reported) Levothyroxine Sodium 137 Mcg Tablet, 137 MCG PO DAILY, (Reported) Loperamide HCl 2 Mg Capsule, 2 MG PO PRN PRN for LOOSE STOOLS, (Reported) Loratadine 10 Mg Capsule, 10 MG PO DAILY, (Reported) Losartan Potassium 50 Mg Tablet, 50 MG PO DAILY, (Reported) Magnesium Oxide 400 Mg Tablet, 400 MG PO HS, (Reported) Metoprolol Succinate 25 Mg Tab.sr.24h, 25 MG PO HS, (Reported) Mu-Vits-Min Th/Lycopene/Lutein 1 Each Tablet, 1 EACH PO DAILY, (Reported) Nitroglycerin 0.4 Mg Tab.subl, 0.4 MG SL PRN PRN for chest pain Prescribed by: TATI WORTHINGTON on 01/16/16 1353 Simvastatin 10 Mg Tablet, 10 MG PO HS, (Reported) Sitagliptin Phosphate 50 Mg Tablet, 50 MG PO DAILY, (Reported) Tamsulosin Hcl 0.4 Mg Cap.sr.24h, 0.4 MG PO HS, (Reported) Patient Home Medication List Home Medication List Reviewed: Yes Review of Systems Review of Systems Constitutional: see HPI; No chills, No fever Eyes: No Symptoms Reported Ears, Nose, Mouth, Throat: no symptoms reported Respiratory: No cough, No short of breath Cardiovascular: No chest pain, No edema Gastrointestinal: No abdominal pain, No nausea, No vomiting Genitourinary: no symptoms reported Musculoskeletal: back pain (chronic) Skin: no symptoms reported Psychiatric/Neurological: No Symptoms Reported All Other Systems Reviewed Negative Unless Noted: Yes Past Qisearo-Hrhdek-Wsjcti Hx Past Med/Social Hx: Reviewed Nursing Past Med/Soc Hx Patient Social History Alcohol Use: Denies Use Recreational Drug Use: No Smoking Status: Never a Smoker Type Used: Cigarettes Former Smoker, Quit: May 25, 1963 Recent Foreign Travel: No Contact w/Someone Who Travel: No Recent Infectious Disease Expo: No Recent Hopitalizations: Yes (2 hernia repaired as a child, appy) Immunizations Up To Date Tetanus Booster (TDap): Unknown Date of Pneumonia Vaccine: Apr 19, 2015 Date of Influenza Vaccine: May 03, 2017 Past Medical History Surgeries: Yes (NECK) Cardiac, Orthopedic Respiratory: No Cardiac: Yes Hypertension Neurological: No Reproductive Disorders: No HIV/AIDS: No Gastrointestinal: No Musculoskeletal: Yes (MUSCULAR PROBLEMS WITH SHOULDERS, NECK FUSION IN 07/02) Endocrine: Yes Hypothyroidsim, Diabetes, Non-Insulin dep Loss of Vision: Denies Hearing Impairment: Denies Cancer: Yes Bladder Psychosocial: No Integumentary: No Blood Disorders: No (BRUISES EASILY) Adverse Reaction/Blood Tranf: No Family Medical History Reviewed Nursing Family Hx Physical Exam Vital Signs Vital Signs - First Documented 04/26/18 11:35 Temp 98.0 Pulse 90 Resp 18 B/P (MAP) 170/92 (118) Pulse Ox 96 O2 Delivery Room Air Capillary Refill : Less Than 3 Seconds Height, Weight, BMI Height: 6'0.00" Weight: 160lbs. 0.0oz. [id number]; 24.8 BMI Method:Stated General Appearance: WD/WN, no apparent distress HEENT: PERRL/EOMI, pharynx normal Neck: non-tender, full range of motion, supple Respiratory: lungs clear, normal breath sounds Cardiovascular: regular rate, rhythm, no murmur Gastrointestinal: non tender, soft Back: normal inspection, no CVA tenderness, no vertebral tenderness Extremities: non-tender, normal inspection Neurologic/Psychiatric: alert, oriented x 3 Crainal Nerves: normal hearing, normal speech, PERRL Coordination/Gait: other (shuffling gait but is able to walk without assistance. Does have a boot to the right foot postoperatively for an infection ) Motor/Sensory: no motor deficit, no sensory deficit Skin: normal color, warm/dry Progress/Results/Core Measures Results/Orders Lab Results Laboratory Tests Test 04/26/18 11:59 Range/Units White Blood Count 7.6 4.3-11.0 10^3/uL Red Blood Count 5.11 4.35-5.85 10^6/uL Hemoglobin 14.7 13.3-17.7 G/DL Hematocrit 44 40-54 % Mean Corpuscular Volume 85 80-99 FL Mean Corpuscular Hemoglobin 29 25-34 PG Mean Corpuscular Hemoglobin Concent 34 32-36 G/DL Red Cell Distribution Width 14.3 10.0-14.5 % Platelet Count 387 130-400 10^3/uL Mean Platelet Volume 9.6 7.4-10.4 FL Neutrophils (%) (Auto) 75 42-75 % Lymphocytes (%) (Auto) 14 12-44 % Monocytes (%) (Auto) 10 0-12 % Eosinophils (%) (Auto) 1 0-10 % Basophils (%) (Auto) 1 0-10 % Neutrophils # (Auto) 5.7 1.8-7.8 X 10^3 Lymphocytes # (Auto) 1.1 1.0-4.0 X 10^3 Monocytes # (Auto) 0.8 0.0-1.0 X 10^3 Eosinophils # (Auto) 0.1 0.0-0.3 10^3/uL Basophils # (Auto) 0.0 0.0-0.1 10^3/uL Prothrombin Time 13.5 12.2-14.7 SEC INR Comment 1.0 0.8-1.4 Activated Partial Thromboplast Time 26 24-35 SEC Sodium Level 140 135-145 MMOL/L Potassium Level 4.2 3.6-5.0 MMOL/L Chloride Level 104 98-107 MMOL/L Carbon Dioxide Level 26 21-32 MMOL/L Anion Gap 10 5-14 MMOL/L Blood Urea Nitrogen 21 H 7-18 MG/DL Creatinine 0.98 0.60-1.30 MG/DL Estimat Glomerular Filtration Rate > 60 BUN/Creatinine Ratio 21 Glucose Level 120 H 70-105 MG/DL Calcium Level 10.0 8.5-10.1 MG/DL Corrected Calcium 9.8 8.5-10.1 MG/DL Total Bilirubin 1.1 H 0.1-1.0 MG/DL Aspartate Amino Transf (AST/SGOT) 19 5-34 U/L Alanine Aminotransferase (ALT/SGPT) 17 0-55 U/L Alkaline Phosphatase 84 40-136 U/L Total Protein 7.2 6.4-8.2 GM/DL Albumin 4.2 3.2-4.5 GM/DL My Orders Orders - CLIFFORD ZIMMER MD Cbc With Automated Diff (04/26/18 11:47) Comprehensive Metabolic Panel (04/26/18 11:47) Protime With Inr (04/26/18 11:47) Partial Thromboplastin Time (04/26/18 11:47) Saline Lock/Iv-Start (04/26/18 11:47) Vital Signs/I&O 04/26/18 11:35 Temp 98.0 Pulse 90 Resp 18 B/P (MAP) 170/92 (118) Pulse Ox 96 O2 Delivery Room Air Blood Pressure Mean: 118 Progress Progress Note : Progress Note Seen and evaluated. IV and labs ordered. Initiated contact with [facility] in [place], [place] for transfer at 1207. Dr. Moraes on-call. Patient has history with her as she has done spine surgery on him previously. Pending call back. 1225: I did speak with Dr. Way from the emergency department at [facility] and he accepts patient for transfer emergency department to emergency department. EMS notified. Unable to fly due to weather. Labs pending. Family informed and agreeable plan. 1235: I did discuss the case with Dr. Moraes and she is also in agreement with transfer. Diagnostic Imaging Diagonstic Imaging: CT Plain Films/CT/US/NM/MRI: head Comments VIA [facility]. [place], [place] NAME: ILDEFONSO WEBBER [facility] REC#: [id number] PT STATUS: REG CLI : 1935 PHYSICIAN: SHALINI MITCHELL ADMIT DATE: 04/26/18/RAD Draft Date of Exam:04/26/18 CT HEAD WO PROCEDURE: CT head without contrast. TECHNIQUE: Multiple contiguous axial images were obtained through the brain without the use of intravenous contrast. INDICATION: Confusion and altered mental status. FINDINGS: There are large mixed density bilateral subdural hematomas. These extend from the frontal regions through the parietal regions bilaterally. On the left this measures up to 2 cm in thickness and on the right this measures up to 1.6 cm in thickness. There is mass effect on both cerebral hemispheres. There is no hydrocephalus. Calvarium is intact. Sinuses and mastoid air cells are clear. IMPRESSION: Large bilateral mixed density subdural hematomas left greater than right. There is acute blood and bilaterally as well. There is mass effect on the underlying cerebral hemispheres as described. Findings are discussed directly to Shlaini Mitchell as well as the ER physician. Dictated on workstation # [id number] Dict: 04/26/18 1146 Trans: 04/26/18 1202 [id number] Interpreted by: IMAN MARTIN MD Electronically signed by: Reviewed: Reviewed by Me, Discussed w/Radiologist Departure Impression Primary Impression: Bilateral subdural hematomas Disposition: XFER SHT-TRM HOSP Condition: Stable Transfer Time Spoke to Accepting Phy: 12:25 Transfer Time: 12:25 Transfer Facility: [place], [place], Dr. Way accepting Method of Transfer: EMS Departure-Patient Inst. Referrals: NEETU MATA MD (PCP/Family) Primary Care Physician CLIFFORD ZIMMER MD Apr 26, 2018 12:13
--- OUTSIDE RECORDS SUMMARY | 2018-04-26 12:13 | XMS REPORT | CCD ---
Author Author Shalini Mitchell MD, [facility] Address [address] [place] [address] Phone Care Team Providers Care Science Faculty Member Name Role Phone PP Unavailable CCM Unavailable Summary Purpose Interface Exchange Insurance Providers Payer name Policy type / Coverage type Covered democrat ID Effective Begin Date Effective End Date WPS Medicare Part B Medicare Part B [id number] Unknown Unknown [facility] Medicare Part B [id number] Unknown Unknown Family History Family History data not found Social History Social History Element Codes Description Effective Dates Marital status Unknown 12/04/2014 Number of children Unknown 3 12/04/2014 Employment Unknown Retired [employer] 12/04/[address]: 1638655 Quit over 10 years ago 12/04/[address]: 580240121 Never drinks alcohol 12/04/2014 Allergies, Adverse Reactions, [...] Start Date Stop Date Status Fill Instructions Tessalon 200 mg capsule RxNorm: 068032 1 Capsule(s) PO TID as needed 08/23/2017 09/11/2017 Active Tessalon 200 mg capsule RxNorm: 199529 1 Capsule(s) PO TID as needed 08/23/2017 08/22/2017 Inactive doxycycline hyclate 100 mg capsule RxNorm: 7512183 1 Capsule(s) PO BID 08/18/2017 08/27/2017 Active prednisone 10 mg tablet RxNorm: 139078 Tablet(s) PO UD 2017 No Stop Date Active 6,5,4,3,2,1 Phenergan-Codeine 6.25 mg-10 mg/5 mL syrup RxNorm: 449849 5 to 10 ml PO Q6 as needed 08/17/2017 08/22/2017 Inactive Zithromax Z-Anil 250 mg tablet RxNorm: 987601 1 Tablet(s) PO UD 2017 08/17/2017 Inactive zpack ceftriaxone 500 mg solution for injection RxNorm: 4728642 Inj 08/03/2017 08/03/2017 Inactive cephalexin 500 mg capsule RxNorm: 879227 1 Capsule(s) PO QID 08/09/2017 Inactive Kenalog 40 mg/mL suspension for injection RxNorm: 0701926 1 Milliliter(s) Inj 08/03/2017 08/03/2017 Inactive losartan 50 mg tablet RxNorm: 679298 TAKE ONE TABLET BY MOUTH ONCE DAILY IN THE MORNING 08/02/2017 No Stop Date Active simvastatin 10 mg tablet RxNorm: 760030 TAKE ONE TABLET BY MOUTH ONCE DAILY 08/02/2017 No Stop Date Active levothyroxine 137 mcg tablet RxNorm: 888689 TAKE ONE TABLET BY MOUTH ONCE DAILY 07/26/2017 No Stop Date Active Flonase Allergy Relief 50 mcg/actuation nasal spray, suspension RxNorm: 1220977 USE TWO SPRAY(S) IN EACH NOSTRIL ONCE DAILY 06/28/2017 No Stop Date Active baclofen 10 mg tablet RxNorm: 830138 TAKE ONE TABLET BY MOUTH THREE TIMES DAILY NEEDED FOR MUSCLE SPASM 06/28/2017 No Stop Date Active Kenalog 40 mg/mL suspension for injection RxNorm: 8550692 1 Milliliter(s) Inj 04/08/2017 04/08/2017 Inactive doxycycline hyclate 100 mg tablet RxNorm: 164222 1 Tablet(s) PO BID 04/01/2017 04/10/2017 Inactive PLEASE GIVE 90 DAY SUPPLY losartan 50 mg tablet RxNorm: 936093 TAKE ONE TABLET BY MOUTH ONCE DAILY IN THE MORNING 02/01/2017 07/30/2017 Inactive levothyroxine 137 mcg tablet RxNorm: 727867 1 Tablet(s) PO daily 01/22/2017 07/20/2017 Inactive hold until he calls for fill- using samples from office metoprolol succinate ER 25 mg tablet,extended release 24 hr RxNorm: 228370 1 Tablet(s) PO daily 01/11/2017 01/05/2018 Active tamsulosin 0.4 mg capsule RxNorm: 673758 TAKE ONE CAPSULE BY MOUTH ONCE DAILY 01/11/2017 10/07/2017 Active simvastatin 10 mg tablet RxNorm: 587562 TAKE ONE TABLET BY MOUTH ONCE DAILY 12/17/2016 06/14/2017 Inactive levothyroxine 150 mcg tablet RxNorm: 889639 1 Tablet(s) PO daily 09/24/2016 01/21/2017 Inactive doxycycline hyclate 100 mg tablet RxNorm: 625926 1 Tablet(s) PO daily 07/30/2016 01/25/2017 Inactive PLEASE GIVE 90 DAY SUPPLY doxycycline hyclate 100 mg tablet RxNorm: 137887 1 Tablet(s) PO daily 07/27/2016 07/29/2016 Inactive PLEASE GIVE 90 DAY SUPPLY quinine 324 mg capsule RxNorm: 206684 1 Capsule(s) PO HS PRN No Stop Date Active LEG CRAMPS doxycycline hyclate 100 mg tablet RxNorm: 252810 1 Tablet(s) PO daily 05/29/2016 07/26/2016 Inactive PLEASE GIVE 90 DAY SUPPLY Kenalog 40 mg/mL suspension for injection RxNorm: 7235879 Milliliter(s) Inj 05/19/2016 05/19/2016 Inactive Levaquin 500 mg tablet RxNorm: 603036 1 Tablet(s) PO daily 07/201505/25/2016 Inactive Zithromax Z-Anil 250 mg tablet RxNorm: 854242 1 Tablet(s) PO UD 05/14/2016 09/09/2016 Inactive zpack Kenalog 40 mg/mL suspension for injection RxNorm: 4407004 Milliliter(s) Inj 05/12/2016 05/12/2016 Inactive Zithromax Z-Anil 250 mg tablet RxNorm: 309452 1 Tablet(s) PO UD 05/08/2016 05/12/2016 Inactive zpack Flonase Allergy Relief 50 mcg/actuation nasal spray, suspension RxNorm: 2620322 2 Yolyn NASAL daily 04/21/20162016 Inactive levothyroxine 150 mcg tablet RxNorm: 907079 1 Tablet(s) PO daily 04/21/2016 09/23/2016 Inactive baclofen 10 mg tablet RxNorm: 526296 1 Tablet(s) PO TID as needed for muscle spasms 04/10/2016 11/05/2016 Inactive Flonase Allergy Relief 50 mcg/actuation nasal spray, suspension RxNorm: 6934428 2 Yolyn NASAL daily 01/27/20162015 Inactive losartan 50 mg tablet RxNorm: 195390 1 Tablet(s) PO QAM 201501/09/2017 Inactive magnesium oxide 400 mg tablet RxNorm: 417011 1 Tablet(s) PO daily 01/16/2016 01/09/2017 Inactive omega 4-dtg-awy-fish oil 300 mg-1,000 mg capsule,delayed release RxNorm: 1 Capsule(s) PO daily 01/16/2016 01/09/2017 Inactive ask pt if this is needed- he may use OTC levothyroxine 175 mcg tablet RxNorm: 174957 1 Tablet(s) PO daily 01/16/2016 04/20/2016 Inactive metoprolol succinate ER 25 mg tablet,extended release 24 hr RxNorm: 843166 1 Tablet(s) PO daily 01/16/2016 01/09/2017 Inactive baclofen 10 mg tablet RxNorm: 804755 1 Tablet(s) PO TID as needed for muscle spasms 01/16/2016 04/09/2016 Inactive omega 7-nyz-qxp-fish oil 300 mg-1,000 mg capsule,delayed release RxNorm: 1 Capsule(s) PO daily 01/16/2016 01/15/2016 Inactive ask pt if this is needed- he may use OTC simvastatin 10 mg tablet RxNorm: 981519 1 Tablet(s) PO daily 12/16/2016 Inactive tamsulosin 0.4 mg capsule RxNorm: 916770 TAKE ONE CAPSULE BY MOUTH ONCE DAILY 01/05/2016 01/10/2017 Inactive levothyroxine 150 mcg tablet RxNorm: 251617 1 Tablet(s) PO daily 12/05/2015 12/04/2015 Inactive levothyroxine 150 mcg tablet RxNorm: 867059 1 Tablet(s) PO daily 12/05/2015 01/15/2016 Inactive metoprolol succinate ER 25 mg tablet,extended release 24 hr RxNorm: 338261 1 Tablet(s) PO daily 10/22/2015 01/15/2016 Inactive losartan 50 mg tablet RxNorm: 174968 1 Tablet(s) PO QAM 201501/15/2016 Inactive levothyroxine 175 mcg tablet RxNorm: 923198 1 Tablet(s) PO daily 09/09/2015 12/04/2015 Inactive doxycycline hyclate 100 mg tablet RxNorm: 904917 1 Tablet(s) PO daily 08/27/2015 01/15/2016 Inactive PLEASE GIVE 90 DAY SUPPLY doxycycline hyclate 100 mg tablet RxNorm: 450830 1 Tablet(s) PO daily 08/27/2015 08/26/2015 Inactive chlorzoxazone 500 mg tablet RxNorm: 970459 1 Tablet(s) PO Q6 as needed muscle spasms 08/15/2015 03/11/2016 Inactive chlorzoxazone 500 mg tablet RxNorm: 237795 1 Tablet(s) PO Q6 as needed muscle spasms 08/15/2015 08/14/2015 Inactive ketoconazole 2 % shampoo RxNorm: 523605 1 Application TOP UD 08/04/2015 Inactive ketoconazole 2 % shampoo RxNorm: 921079 1 Application TOP UD 01/15/2016 Inactive clobetasol 0.05 % topical solution RxNorm: 781892 1 Application TOP daily 08/01/2015 07/31/2015 Inactive clobetasol 0.05 % topical solution RxNorm: 015497 1 Application TOP daily 08/01/2015 01/15/2016 Inactive levothyroxine 175 mcg tablet RxNorm: 810657 1 Tablet(s) PO daily 07/22/2015 09/08/2015 Inactive doxycycline hyclate 100 mg tablet RxNorm: 294411 1 Tablet(s) PO daily 07/17/2015 08/15/2015 Inactive levothyroxine 175 mcg tablet RxNorm: 594059 Tablet(s) PO every other day 07/17/2015 07/21/2015 Inactive Zithromax Z-Anil 250 mg tablet RxNorm: 604686 1 Tablet(s) PO 05/07/2016 Inactive 1 zpack finasteride 5 mg tablet RxNorm: 610513 1 Tablet(s) PO daily 12/27/2015 Inactive simvastatin 10 mg tablet RxNorm: 971434 1 Tablet(s) PO daily 12/27/2015 Inactive clopidogrel 75 mg tablet RxNorm: 051838 1 Tablet(s) PO daily 01/15/2016 Inactive metoprolol succinate ER 25 mg tablet,extended release 24 hr RxNorm: 443961 1 Tablet(s) PO daily 07/01/2015 10/21/2015 Inactive levothyroxine 150 mcg tablet RxNorm: 561185 1 Tablet(s) PO daily 07/01/2015 07/21/2015 Inactive tamsulosin 0.4 mg capsule RxNorm: 438063 1 Capsule(s) PO daily 07/01/2015 12/27/2015 Inactive losartan 50 mg tablet RxNorm: 958506 1 Tablet(s) PO QA 201410/17/2015 Inactive levothyroxine 150 mcg tablet RxNorm: 878327 1 Tablet(s) PO daily 07/01/2015 06/30/2015 Inactive Zithromax Z-Anil 250 mg tablet RxNorm: 089533 1 Tablet(s) PO 03/201507/09/2015 Inactive 1 ghassanpayenny Januvia 100 mg tablet RxNorm: 324529 1/2 Tablet(s) PO BID 201405/22/2015 Inactive Januvia 50 mg tablet RxNorm: 329432 1 Tablet(s) PO BID 201404/22/2015 Inactive chlorzoxazone 500 mg tablet RxNorm: 669397 1 Tablet(s) PO Q6 as needed muscle spasms 01/21/2015 01/20/2015 Inactive baclofen 10 mg tablet RxNorm: 644314 1 Tablet(s) PO TID as needed for muscle spasms 01/21/2015 06/30/2015 Inactive chlorzoxazone 500 mg tablet RxNorm: 434284 1 Tablet(s) PO Q6 as needed muscle spasms 01/21/2015 03/03/2015 Inactive Vitamin D3 2,000 unit tablet RxNorm: 355162 Tablet(s) PO BID No Stop Date Active [SAVINGS FOR NON-COVERED DRUGS -- BIN:[id number], PCN: [id number], Group: XXXXX , ID# [id number], Questions: . THIS IS NOT INSURANCE.] Claritin 10 mg tablet RxNorm: 129031 1 Tablet(s) PO daily No Start Date Active aspirin 81 mg tablet RxNorm: 507725 Tablet(s) PO daily No Start Date Active Centrum Silver oral RxNorm: 02543 oral No Start Date Active Calcium Citrate + D 600 mg RxNorm: 630mg PO daily No Start Date Active sodium chloride oral RxNorm: oral No Start Date Active Vitamin C 500 mg chewable tablet RxNorm: 189998 1 Tablet(s) PO No Start Date Active Vitamin B12 Oral RxNorm: oral No Start Date Active Fish Oil (with DHA-EPA) capsule RxNorm: oral No Start Date 01/15/2016 Inactive clopidogrel 75 mg tablet RxNorm: 390267 1 Tablet(s) PO daily No Start Date 06/30/2015 Inactive metoprolol succinate ER 25 mg tablet,extended release 24 hr RxNorm: 171086 1 Tablet(s) PO daily No Start Date 2014 Inactive simvastatin 10 mg tablet RxNorm: 079490 1 Tablet(s) PO daily No Start Date 06/30/2015 Inactive Claritin 10 mg tablet RxNorm: 976207 1 Tablet(s) PO daily No Start Date 07/16/2015 Inactive levothyroxine 175 mcg tablet RxNorm: 593368 Tablet(s) PO every other day No Start Date 06/30/2015 Inactive Vitamin D3 2,000 unit tablet RxNorm: 969806 Tablet(s) PO daily No Start Date 12/03/2014 Inactive losartan 50 mg tablet RxNorm: 754666 1 Tablet(s) PO QAM No Start Date 06/30/2015 Inactive magnesium oxide 400 mg tablet RxNorm: 520299 1 Tablet(s) PO daily No Start Date 01/15/2016 Inactive Phenergan-Codeine 6.25 mg-10 mg/5 mL syrup RxNorm: 641215 5 to 10 ml PO Q6 No Start Date 08/16/2017 Inactive baclofen 10 mg tablet RxNorm: 348256 1 Tablet(s) PO TID as needed for muscle spasms No Start Date 01/20/2015 Inactive finasteride 5 mg tablet RxNorm: 522299 1 Tablet(s) PO daily No Start Date 06/30/2015 Inactive quinine 324 mg capsule RxNorm: 224509 1 Capsule(s) PO HS PRN No Start Date 06/14/2016 Inactive LEG CRAMPS Vitamin D3 (with calcium carbonate) oral RxNorm: 307215 oral No Start Date 01/15/2016 Inactive Zithromax Z-Anil 250 mg tablet RxNorm: 560024 1 Tablet(s) PO No Start Date 06/25/2015 Inactive 1 zpack levothyroxine 150 mcg tablet RxNorm: 357733 Tablet(s) PO every other day No Start Date 06/30/2015 Inactive Januvia 50 mg tablet RxNorm: 919191 1 Tablet(s) PO daily No Start Date 03/06/2015 Inactive fluticasone 50 mcg/actuation nasal spray,suspension RxNorm: 978466 1 Yolyn NASAL daily No Start Date 01/15/2016 Inactive tamsulosin ER 0.4 mg capsule,extended release 24 hr RxNorm: 587573 1 Capsule(s) PO daily No Start Date 06/30/2015 Inactive Ellie 180 mg tablet RxNorm: 027921 1 Tablet(s) PO daily No Start Date 01/15/2016 Inactive Medication Administered Medication Codes Instructions Start Date Status ceftriaxone 500 mg solution for injection RxNorm: 0343862 08/03/2017 No longer Active Kenalog 40 mg/mL suspension for injection RxNorm: 4348005 1Milliliter 08/03/2017 No longer Active Kenalog 40 mg/mL suspension for injection RxNorm: 1032676 1Milliliter 04/08/2017 No longer Active Kenalog 40 mg/mL suspension for injection RxNorm: 4328540 Milliliter 05/19/2016 No longer Active Kenalog 40 mg/mL suspension for injection RxNorm: 1574088 Milliliter 05/12/2016 No longer Active Immunizations Vaccine [...] 29.5 pg 04/28/2017 Cbc With Differential Ord2 Bullitt% 14.0 % 04/28/2017 Cbc With Differential Ord2 [...] 1.07 K/ul 04/28/2017 Cbc With Differential Ord2 [place] ABS# 1.0 K/ul 04/28/2017 Cbc With Differential Ord2 Eos ABS# 0.2 K/ul 04/28/2017 Cbc With Differential Ord2 Baso ABS# 0.0 K/ul 04/28/2017 Free T4 Ktn026 FREE T4 1.07 ng/dL 04/28/2017 Lipid Ord30 CHOL 132 mg/dL 04/28/2017 Lipid Ord30 HDL 54.0 mg/dl 04/28/2017 Lipid Ord30 TRIG 72 mg/dL 04/28/2017 Lipid Ord30 LDL 64 mg/dL 04/28/2017 Lipid Ord30 C/HDL 2.4 Ratio 04/28/2017 Tsh Ord6 hTSH II 1.64 uIU/mL 04/28/2017 Comp Metabolic Ncl107 NA 140 mEq/L 04/28/2017 Comp Metabolic Ima372 K 4.6 mEq/L 04/28/2017 Comp Metabolic Bsd366 CL 104 mEq/L 04/28/2017 Comp Metabolic Eyb139 CO2 27.0 mEq/L 04/28/2017 Comp Metabolic Ybe178 ANION GAP 14 04/28/2017 Comp Metabolic Njs673 GLUCOSE 141 mg/dL 04/28/2017 Comp Metabolic Wyc753 Creat 1.0 mg/dL 04/28/2017 Comp Metabolic Cdb710 eGFR 79 ml/min/1.73m2 04/28/2017 Comp Metabolic Oms768 BUN 26 mg/dL 04/28/2017 Comp Metabolic Pbh371 B/C Ratio 26.8 Ratio 04/28/2017 Comp Metabolic Eod566 CALCIUM 9.4 mg/dL 04/28/2017 Comp Metabolic Sgc222 ALK PHOS 66 U/L 04/28/2017 Comp Metabolic Gjx429 AST(SGOT) 21 U/L 04/28/2017 Comp Metabolic Bul173 ALT(SGPT) 20 U/L 04/28/2017 Comp Metabolic Pzh438 BILI T 1.3 mg/dL 04/28/2017 Comp Metabolic Jir338 ALBUMIN 4.1 g/dL 04/28/2017 Comp Metabolic Nuj487 TPRO 6.3 g/dL 04/28/2017 Comp Metabolic Vck431 GLOB 2.2 g/dL 04/28/2017 Comp Metabolic Tqg899 A/G Ratio 1.9 Ratio 04/28/2017 Comp Metabolic Wlr016 Osmo 287 mOsmo 04/28/2017 %Hba1C Yef162 % HbA1c 65260-7 6.5 % 04/28/2017 %Hba1C Jld203 Gluc Ave 140 mg/dL 04/28/2017 %Hba1C Iua111 % HbA1c 91292-0 6.6 % 01/22/2017 %Hba1C Mvx471 Gluc Ave 143 mg/dL 01/22/2017 Tsh Ord6 hTSH II 0.26 uIU/mL 01/22/2017 Lipid Ord30 CHOL 126 mg/dL 01/22/2017 Lipid Ord30 HDL 43.0 mg/dl 01/22/2017 Lipid Ord30 TRIG 111 mg/dL 01/22/2017 Lipid Ord30 LDL 61 mg/dL 01/22/2017 Lipid Ord30 C/HDL 2.9 Ratio 01/22/2017 Free T4 Brb071 FREE T4 0.96 ng/dL 01/22/2017 Comp Metabolic Bew162 NA 140 mEq/L 01/22/2017 Comp Metabolic Xos485 K 4.3 mEq/L 01/22/2017 Comp Metabolic Uak677 CL 104 mEq/L 01/22/2017 Comp Metabolic Sfz991 CO2 29.0 mEq/L 01/22/2017 Comp Metabolic Zse959 ANION GAP 11 01/22/2017 Comp Metabolic Zfr496 GLUCOSE 146 mg/dL 01/22/2017 Comp Metabolic Hrt021 Creat 0.8 mg/dL 01/22/2017 Comp Metabolic Nit344 eGFR 100 ml/min/1.73m2 01/22/2017 Comp Metabolic Fec221 BUN 19 mg/dL 01/22/2017 Comp Metabolic Eea618 B/C Ratio 24.1 Ratio 01/22/2017 Comp Metabolic Zgg555 CALCIUM 9.2 mg/dL 01/22/2017 Comp Metabolic Jjt965 ALK PHOS 60 U/L 01/22/2017 Comp Metabolic Nyy579 AST(SGOT) 18 U/L 01/22/2017 Comp Metabolic Uda057 ALT(SGPT) 17 U/L 01/22/2017 Comp Metabolic Ota941 BILI T 0.6 mg/dL 01/22/2017 Comp Metabolic Rii127 ALBUMIN 3.7 g/dL 01/22/2017 Comp Metabolic Itr804 TPRO 5.8 g/dL 01/22/2017 Comp Metabolic Zoj348 GLOB 2.1 g/dL 01/22/2017 Comp Metabolic Mhb400 A/G Ratio 1.7 Ratio 01/22/2017 Comp Metabolic Sic960 Osmo 284 mOsmo 01/22/2017 Cbc With Differential [...] 30.2 pg 01/22/2017 Cbc With Differential Ord2 [place]% 14.1 % 01/22/2017 Cbc With Differential Ord2 [...] 1.01 K/ul 01/22/2017 Cbc With Differential Ord2 [place] ABS# 0.9 K/ul 01/22/2017 Cbc With Differential Ord2 Eos ABS# 0.2 K/ul 01/22/2017 Cbc With Differential Ord2 Baso ABS# 0.1 K/ul 01/22/2017 Cbc With Differential Ord2 WBC 5.81 K/ul 10/23/2016 Cbc With Differential Ord2 RBC 4.65 M/ul 10/23/2016 Cbc With Differential Ord2 HGB 14.3 g/dl 10/23/2016 Cbc With Differential Ord2 HCT 43.2 % 10/23/2016 Cbc With Differential Ord2 Neut% 69.7 % 10/23/2016 Cbc With Differential Ord2 Lymph% 13.6 % 10/23/2016 Cbc With Differential Ord2 MCV 92.9 fl 10/23/2016 Cbc With Differential Ord2 [place]% 12.7 % 10/23/2016 Cbc With Differential Ord2 [...] 0.79 K/ul 10/23/2016 Cbc With Differential Ord2 [place] ABS# 0.7 K/ul 10/23/2016 Cbc With Differential Ord2 Eos ABS# 0.2 K/ul 10/23/2016 Cbc With Differential Ord2 Baso ABS# 0.0 K/ul 10/23/2016 Lipid Ord30 CHOL 134 mg/dL 10/23/2016 Lipid Ord30 HDL 42.0 mg/dl 10/23/2016 Lipid Ord30 TRIG 101 mg/dL 10/23/2016 Lipid Ord30 LDL 72 mg/dL 10/23/2016 Lipid Ord30 C/HDL 3.2 Ratio 10/23/2016 Tsh Ord6 hTSH II 0.70 uIU/mL 10/23/2016 %Hba1C Osy579 % HbA1c 75341-7 7.0 % 10/23/2016 %Hba1C Vbz130 Gluc Ave 154 mg/dL 10/23/2016 Free T4 Asi694 FREE T4 0.99 ng/dL 10/23/2016 Comp Metabolic Ovt736 NA 141 mEq/L 10/23/2016 Comp Metabolic Ris025 K 4.3 mEq/L 10/23/2016 Comp Metabolic Ydu732 CL 104 mEq/L 10/23/2016 Comp Metabolic Xfy367 CO2 29.0 mEq/L 10/23/2016 Comp Metabolic Rfh965 ANION GAP 12 10/23/2016 Comp Metabolic Nqf319 GLUCOSE 156 mg/dL 10/23/2016 Comp Metabolic Udd359 Creat 0.9 mg/dL 10/23/2016 Comp Metabolic Gfb153 eGFR 85 ml/min/1.73m2 10/23/2016 Comp Metabolic Wlx570 BUN 19 mg/dL 10/23/2016 Comp Metabolic Fdf183 B/C Ratio 20.9 Ratio 10/23/2016 Comp Metabolic Dcr564 CALCIUM 9.2 mg/dL 10/23/2016 Comp Metabolic Oat514 ALK PHOS 72 U/L 10/23/2016 Comp Metabolic Veh557 AST(SGOT) 21 U/L 10/23/2016 Comp Metabolic Vau713 ALT(SGPT) 19 U/L 10/23/2016 Comp Metabolic Rzp142 BILI T 0.8 mg/dL 10/23/2016 Comp Metabolic Cxs538 ALBUMIN 3.8 g/dL 10/23/2016 Comp Metabolic Smw752 TPRO 6.2 g/dL 10/23/2016 Comp Metabolic Mtf411 GLOB 2.4 g/dL 10/23/2016 Comp Metabolic Urx063 A/G Ratio 1.6 Ratio 10/23/2016 Comp Metabolic Qfd041 Osmo 287 mOsmo 10/23/2016 Tsh Ord6 hTSH II 0.84 uIU/mL 07/24/2016 Comp Metabolic Ybe125 NA 139 mEq/L 07/24/2016 Comp Metabolic Wvf782 K 4.5 mEq/L 07/24/2016 Comp Metabolic Aol431 CL 103 mEq/L 07/24/2016 Comp Metabolic Hla087 CO2 30.0 mEq/L 07/24/2016 Comp Metabolic Ttq163 ANION GAP 11 07/24/2016 Comp Metabolic Job870 GLUCOSE 161 mg/dL 07/24/2016 Comp Metabolic Ofb098 Creat 1.0 mg/dL 07/24/2016 Comp Metabolic Yho546 eGFR 80 ml/min/1.73m2 07/24/2016 Comp Metabolic Twh205 BUN 23 mg/dL 07/24/2016 Comp Metabolic Jzy833 B/C Ratio 24.0 Ratio 07/24/2016 Comp Metabolic Cqb747 CALCIUM 9.4 mg/dL 07/24/2016 Comp Metabolic Aso268 ALK PHOS 66 U/L 07/24/2016 Comp Metabolic Aur820 AST(SGOT) 18 U/L 07/24/2016 Comp Metabolic Who503 ALT(SGPT) 22 U/L 07/24/2016 Comp Metabolic Djd068 BILI T 1.1 mg/dL 07/24/2016 Comp Metabolic Gdn563 ALBUMIN 4.0 g/dL 07/24/2016 Comp Metabolic Jtn152 TPRO 6.4 g/dL 07/24/2016 Comp Metabolic Xwn707 GLOB 2.4 g/dL 07/24/2016 Comp Metabolic Ytk603 A/G Ratio 1.6 Ratio 07/24/2016 Comp Metabolic Wqp977 Osmo 285 mOsmo 07/24/2016 Cbc With Differential [...] 93.0 fl 07/24/2016 Cbc With Differential Ord2 [place]% 13.8 % 07/24/2016 Cbc With Differential Ord2 [...] 1.56 K/ul 07/24/2016 Cbc With Differential Ord2 [place] ABS# 1.0 K/ul 07/24/2016 Cbc With Differential Ord2 Eos ABS# 0.2 K/ul 07/24/2016 Cbc With Differential Ord2 Baso ABS# 0.0 K/ul 07/24/2016 %Hba1C Ozp831 % HbA1c 96791-9 7.1 % 07/24/2016 %Hba1C Rar153 Gluc Ave 157 mg/dL 07/24/2016 Lipid Ord30 CHOL 136 mg/dL 07/24/2016 Lipid Ord30 HDL 52.0 mg/dl 07/24/2016 Lipid Ord30 TRIG 83 mg/dL 07/24/2016 Lipid Ord30 LDL 67 mg/dL 07/24/2016 Lipid Ord30 C/HDL 2.6 Ratio 07/24/2016 Tsh Ord6 hTSH II 0.92 uIU/mL 03/11/2016 Free T4 Ezt026 FREE T4 0.92 ng/dL 03/11/2016 %Hba1C Gfi306 % HbA1c 98334-8 7.0 % 03/11/2016 %Hba1C Qxo271 Gluc Ave 154 mg/dL 03/11/2016 Free T4 Wkz332 FREE T4 0.95 ng/dL 11/27/2015 Cbc With [...] 20.3 % 11/27/2015 Cbc With Differential Ord2 [place]% 13.5 % 11/27/2015 Cbc With Differential Ord2 [...] 1.26 K/ul 11/27/2015 Cbc With Differential Ord2 [place] ABS# 0.8 K/ul 11/27/2015 Cbc With Differential Ord2 Eos ABS# 0.2 K/ul 11/27/2015 Cbc With Differential Ord2 Baso ABS# 0.1 K/ul 11/27/2015 Cbc With Differential Ord2 New Analyzer Notice Please note new ref ranges starting 07-31-2015 due to implemntation of new five part differential hematolgy analyzer. 11/27/2015 Comp Metabolic Oli664 NA 139 mEq/L 11/27/2015 Comp Metabolic Fwc646 K 4.4 mEq/L 11/27/2015 Comp Metabolic Wgp152 CL 105 mEq/L 11/27/2015 Comp Metabolic Cyw274 CO2 28.0 mEq/L 11/27/2015 Comp Metabolic Mfg313 ANION GAP 10 11/27/2015 Comp Metabolic Gin287 GLUCOSE 139 mg/dL 11/27/2015 Comp Metabolic Bfx845 Creat 0.9 mg/dL 11/27/2015 Comp Metabolic Mep462 eGFR 89 ml/min/1.73m2 11/27/2015 Comp Metabolic Yoi785 BUN 15 mg/dL 11/27/2015 Comp Metabolic Xav791 B/C Ratio 17.2 Ratio 11/27/2015 Comp Metabolic Ako461 CALCIUM 8.8 mg/dL 11/27/2015 Comp Metabolic Nms865 ALK PHOS 78 U/L 11/27/2015 Comp Metabolic Umt296 AST(SGOT) 18 U/L 11/27/2015 Comp Metabolic Sin567 ALT(SGPT) 16 U/L 11/27/2015 Comp Metabolic Nfv300 BILI T 0.9 mg/dL 11/27/2015 Comp Metabolic Siq051 ALBUMIN 3.7 g/dL 11/27/2015 Comp Metabolic Psm393 TPRO 6.2 g/dL 11/27/2015 Comp Metabolic Idi143 GLOB 2.5 g/dL 11/27/2015 Comp Metabolic Nza002 A/G Ratio 1.5 Ratio 11/27/2015 Comp Metabolic Efk768 Osmo 281 mOsmo 11/27/2015 Tsh Ord6 hTSH II 0.35 uIU/mL 11/27/2015 %Hba1C Gha922 % HbA1c 81160-3 7.1 % 11/27/2015 %Hba1C Kdt991 Gluc Ave 157 mg/dL 11/27/2015 Lipid Ord30 CHOL 123 mg/dL 11/27/2015 Lipid Ord30 HDL 41.0 mg/dl 11/27/2015 Lipid Ord30 TRIG 130 mg/dL 11/27/2015 Lipid Ord30 LDL 56 mg/dL 11/27/2015 Lipid Ord30 C/HDL 3.0 Ratio 11/27/2015 Tsh Ord6 hTSH II 2.87 uIU/mL 08/28/2015 %Hba1C Vxc293 % HbA1c 34956-8 6.9 % 08/28/2015 %Hba1C Vsd083 Gluc Ave 151 mg/dL 08/28/2015 Free T4 Bby316 FREE T4 0.87 ng/dL 08/28/2015 Lipid Ord30 CHOL 147 mg/dL 08/28/2015 Lipid Ord30 HDL 65.0 mg/dl 08/28/2015 Lipid Ord30 TRIG 86 mg/dL 08/28/2015 Lipid Ord30 LDL 65 mg/dL 08/28/2015 Lipid Ord30 C/HDL 2.3 Ratio 08/28/2015 Cbc With Differential Ord2 WBC 6.44 K/ul 08/28/2015 Cbc With Differential Ord2 RBC 4.66 M/ul 08/28/2015 Cbc With Differential Ord2 HGB 13.0 g/dl 08/28/2015 Cbc With Differential Ord2 Neut% 58.4 % 08/28/2015 Cbc With Differential Ord2 HCT 40.0 % 08/28/2015 Cbc With Differential Ord2 MCV 85.8 fl 08/28/2015 Cbc With Differential Ord2 Lymph% 23.8 % 08/28/2015 Cbc With Differential Ord2 [place]% 12.7 % 08/28/2015 Cbc With Differential Ord2 [...] 1.53 K/ul 08/28/2015 Cbc With Differential Ord2 [place] ABS# 0.8 K/ul 08/28/2015 Cbc With Differential Ord2 Eos ABS# 0.3 K/ul 08/28/2015 Cbc With Differential Ord2 Baso ABS# 0.1 K/ul 08/28/2015 Cbc With Differential Ord2 New Analyzer Notice Please note new ref ranges starting 07-31-2015 due to implemntation of new five part differential hematolgy analyzer. 08/28/2015 Comp Metabolic Njf637 NA 139 mEq/L 08/28/2015 Comp Metabolic Fsj429 K 4.5 mEq/L 08/28/2015 Comp Metabolic Wqy241 CL 104 mEq/L 08/28/2015 Comp Metabolic Hdf824 CO2 28.0 mEq/L 08/28/2015 Comp Metabolic Dvw669 ANION GAP 12 08/28/2015 Comp Metabolic Nyi884 GLUCOSE 146 mg/dL 08/28/2015 Comp Metabolic Hln074 Creat 1.0 mg/dL 08/28/2015 Comp Metabolic Wgt738 eGFR 77 ml/min/1.73m2 08/28/2015 Comp Metabolic Drk256 BUN 21 mg/dL 08/28/2015 Comp Metabolic Vrm988 B/C Ratio 21.2 Ratio 08/28/2015 Comp Metabolic Llh014 CALCIUM 9.3 mg/dL 08/28/2015 Comp Metabolic Ryg707 ALK PHOS 70 U/L 08/28/2015 Comp Metabolic Oxs588 AST(SGOT) 18 U/L 08/28/2015 Comp Metabolic Afu752 ALT(SGPT) 16 U/L 08/28/2015 Comp Metabolic Zkj708 BILI T 0.6 mg/dL 08/28/2015 Comp Metabolic Rbl720 ALBUMIN 4.0 g/dL 08/28/2015 Comp Metabolic Xsn826 TPRO 6.4 g/dL 08/28/2015 Comp Metabolic Ehu358 GLOB 2.4 g/dL 08/28/2015 Comp Metabolic Hvh310 A/G Ratio 1.7 Ratio 08/28/2015 Comp Metabolic Mey084 Osmo 283 mOsmo 08/28/2015 Cbc With Differential Ord2 WBC 8.4 K/uL [...] Ord2 RDW 14.5 % 03/06/2015 Comp Metabolic Dui753 NA 137 mEq/L 03/06/2015 Comp Metabolic Xyq532 K 4.2 mEq/L 03/06/2015 Comp Metabolic Vhg609 CL 103 mEq/L 03/06/2015 Comp Metabolic Axl266 CO2 30.0 mEq/L 03/06/2015 Comp Metabolic Fyh203 ANION GAP 8 03/06/2015 Comp Metabolic Uhh918 GLUCOSE 156 mg/dL 03/06/2015 Comp Metabolic Uin365 Creat 1.0 mg/dL 03/06/2015 Comp Metabolic Doj395 eGFR 75 ml/min/1.73m2 03/06/2015 Comp Metabolic Zof892 BUN 17 mg/dL 03/06/2015 Comp Metabolic Jge306 B/C Ratio 16.7 Ratio 03/06/2015 Comp Metabolic Wrk100 CALCIUM 9.2 mg/dL 03/06/2015 Comp Metabolic Ouz164 ALK PHOS 75 U/L 03/06/2015 Comp Metabolic Pxw659 AST(SGOT) 17 U/L 03/06/2015 Comp Metabolic Igt637 ALT(SGPT) 16 U/L 03/06/2015 Comp Metabolic Lci733 BILI T 0.8 mg/dL 03/06/2015 Comp Metabolic Qmy715 ALBUMIN 4.0 g/dL 03/06/2015 Comp Metabolic Fap815 TPRO 6.3 g/dL 03/06/2015 Comp Metabolic Ejo106 GLOB 2.3 g/dL 03/06/2015 Comp Metabolic Phv541 A/G Ratio 1.7 Ratio 03/06/2015 Comp Metabolic Klj387 Osmo 279 mOsmo 03/06/2015 Free T4 Voq257 FREE T4 1.02 ng/dL 03/06/2015 Tsh Ord6 hTSH II 0.98 uIU/mL 03/06/2015 %Hba1C Vrj610 % HbA1c 90239-6 6.7 % 03/06/2015 %Hba1C Xxu887 Gluc Ave 146 mg/dL 03/06/2015 Lipid Ord30 CHOL 137 mg/dL 03/06/2015 [...] appearance 07/23/2016 None Full Exam - General 1995 Ears/Nose/Throat external ear Overall: no masses 07/23/2016 [...] affect 04/21/2016 None Full Exam - General 1995 Psychiatric appearance Overall: well-groomed, good eye contact [...] Procedure Codes Date THER/PROPH/DIAG INJ SC/IM CPT-4: 48653 08/03/2017 TRIAMCINOLONE ACET INJ NOS CPT-4: J3301 08/03/2017 ROCEPHIN, PER 250 MG CPT-4: J0696 08/03/2017 TRIAMCINOLONE ACET INJ NOS CPT-4: J3301 04/08/2017 ADMIN INFLUENZA VIRUS VAC CPT-4: G0008 04/01/2017 FLU VACC PRSV FREE INC ANTIG CPT-4: 19532 04/01/2017 TRIAMCINOLONE ACET INJ NOS CPT-4: J3301 05/19/2016 THER/PROPH/DIAG INJ SC/IM CPT-4: 41251 05/12/2016 TRIAMCINOLONE ACET INJ NOS CPT-4: J3301 05/12/2016 ADMIN PNEUMOCOCCAL VACCINE SNOMED CT: 33618970 CPT-4: G0009 05/05/2016 Pneumococcal Polysaccharide Vaccine, 23-Valent, Ad Formatting Model/CDA Sections, Assigned to/Otilia Ramires CPT-4: 92291Bgejdro 05/05/2016 ADMIN INFLUENZA VIRUS VAC CPT-4: G0008 04/24/2016 FLU VACC 4 YA 3 YRS PLUS IM SNOMED CT: 99834312 CPT-4: 58120 04/24/2016 Vital Signs Date Vital 08/18/2017 Blood Pressure 1: 122/66 Code : 8480-6 BMI: 26.3 Code : 56587-7 Heart Rate 1 : 85 bpm Height: 6' SpO2: 95% Temperature: 36.6 (C) / 97.8 (F) Weight: 194 lbs 08/03/2017 Blood Pressure 1: 126/64 Code : 8480-6 BMI: 27.0 Code : 90059-7 Heart Rate 1 : 92 bpm Height: 6' SpO2: 94% Temperature: 37.4 (C) / 99.3 (F) Weight: 199 lbs 07/05/2017 Blood Pressure 1: 134/66 Code : 8480-6 BMI: 27.1 Code : 38101-8 Heart Rate 1 : 72 bpm Height: 6' SpO2: 96% Weight: 200 lbs 04/23/2017 Blood Pressure 1: 130/72 Code : 8480-6 BMI: 25.9 Code : 30673-2 Heart Rate 1 : 56 bpm Height: 6' SpO2: 97% Weight: 191 lbs 04/08/2017 Blood Pressure 1: 116/64 Code : 8480-6 BMI: 25.9 Code : 24622-5 Heart Rate 1 : 71 bpm Height: 6' SpO2: 97% Weight: 191 lbs 01/21/2017 Blood Pressure 1: 132/74 Code : 8480-6 BMI: 26.0 Code : 76487-6 Heart Rate 1 : 54 bpm Height: 6' SpO2: 94% Weight: 192 lbs 10/19/2016 Blood Pressure 1: 132/64 Code : 8480-6 BMI: 27.7 Code : 71217-1 Heart Rate 1 : 77 bpm Height: 6' SpO2: 98% Weight: 204 lbs 07/23/2016 Blood Pressure 1: 130/62 Code : 8480-6 BMI: 27.8 Code : 21634-5 Heart Rate 1 : 95 bpm Height: 6' SpO2: 97% Weight: 205 lbs 05/19/2016 Blood Pressure 1: 118/70 Code : 8480-6 BMI: 27.9 Code : 38609-0 Heart Rate 1 : 76 bpm Height: 6' SpO2: 97% Weight: 206 lbs 04/21/2016 Blood Pressure 1: 130/70 Code : 8480-6 BMI: 27.9 Code : 70627-3 Heart Rate 1 : 76 bpm Height: 6' SpO2: 96% Weight: 206 lbs 03/26/2016 Blood Pressure 1: 130/78 Code : 8480-6 BMI: 27.7 Code : 97691-6 Heart Rate 1 : 61 bpm Height: 6' SpO2: 98% Weight: 204 lbs 01/27/2016 Blood Pressure 1: 124/80 Code : 8480-6 BMI: 27.5 Code : 68050-9 Heart Rate 1 : 78 bpm Height: 6' SpO2: 96% Weight: 203 lbs 10/28/2015 Blood Pressure 1: 138/78 Code : 8480-6 BMI: 27.7 Code : 97384-1 Heart Rate 1 : 76 bpm Height: 6' SpO2: 98% Weight: 204 lbs 08/27/2015 Blood Pressure 1: 128/56 Code : 8480-6 BMI: 27.4 Code : 11595-9 Heart Rate 1 : 49 bpm Height: 6' SpO2: 98% Weight: 202 lbs 06/06/2015 Blood Pressure 1: 128/62 Code : 8480-6 BMI: 26.0 Code : 94687-0 Heart Rate 1 : 80 bpm Height: 6' SpO2: 98% Weight: 192 lbs 04/30/2015 Blood Pressure 1: 138/64 Code : 8480-6 BMI: 19.2 Code : 15842-5 Heart Rate 1 : 71 bpm Height: 6' SpO2: 94% Weight: 141 lbs 8 oz 04/23/2015 Blood Pressure 1: 128/64 Code : 8480-6 BMI: 25.6 Code : 58621-5 Heart Rate 1 : 66 bpm Height: 6' SpO2: 98% Weight: 189 lbs 03/04/2015 Blood Pressure 1: 132/50 Code : 8480-6 BMI: 25.8 Code : 41160-0 Heart Rate 1 : 63 bpm Height: 6' SpO2: 97% Weight: 190 lbs 12/04/2014 Blood Pressure 1: 112/68 Code : 8480-6 BMI: 26.9 Code : 50865-9 Heart Rate 1 : 68 bpm Height: [...] data Encounters Encounter Performer Location Codes Date [id number] EST. PATIENT, LEVEL IV Diagnosis: Cough[ICD10: R05] Diagnosis: Acute bronchitis due to other specified organisms[ICD10: J20.8] Zenobia Iyer MD, [facility] CPT-4: 76672 08/18/2017 ([id number]) 75885 EST. PATIENT, LEVEL III Diagnosis: Cough[ICD10: R05] Diagnosis: Acute bronchitis due to other specified organisms[ICD10: J20.8] Ayana Iyer MD, [facility] CPT-4: 41913 08/03/2017 ([id number]) 62525 EST. PATIENT, LEVEL III Diagnosis: Essential (primary) hypertension[ICD10: I10] Shalini Iyer MD, [facility] CPT-4: 58181 07/05/2017 ([id number]) 89470 EST. PATIENT, LEVEL IV Diagnosis: Essential (primary) hypertension[ICD10: I10] Diagnosis: Type 2 diabetes mellitus without complications[ICD10: E11.9] Diagnosis: Hypothyroidism, unspecified[ICD10: E03.9] Shalini Iyer MD, [facility] CPT-4: 77945 04/23/2017 ([id number]) 55498 EST. PATIENT, LEVEL III Diagnosis: Other allergic rhinitis[ICD10: J30.89] Shalini Iyer MD, [facility] CPT-4: 93100 04/08/2017 ([id number]) 74585 EST. PATIENT, LEVEL IV Diagnosis: Type 2 diabetes mellitus without complications[ICD10: E11.9] Diagnosis: Essential (primary) hypertension[ICD10: I10] Diagnosis: Hypothyroidism, unspecified[ICD10: E03.9] Diagnosis: Allergic rhinitis due to pollen[ICD10: J30.1] Shalini Iyer MD, [facility] CPT-4: 73337 01/21/2017 ([id number]) 88371 EST. PATIENT, LEVEL IV Diagnosis: Essential (primary) hypertension[ICD10: I10] Diagnosis: Mixed hyperlipidemia[ICD10: E78.2] Diagnosis: Hypothyroidism, unspecified[ICD10: E03.9] Diagnosis: Pain in left knee[ICD10: M25.562] Diagnosis: Type 2 diabetes mellitus without complications[ICD10: E11.9] Shalini Iyer MD, [facility] CPT-4: 14906 10/19/2016 ([id number]) 96005 EST. PATIENT, LEVEL IV Diagnosis: Essential (primary) hypertension[ICD10: I10] Diagnosis: Type 2 diabetes mellitus without complications[ICD10: E11.9] Diagnosis: Hypothyroidism, unspecified[ICD10: E03.9] Diagnosis: Mixed hyperlipidemia[ICD10: E78.2] Shalini Iyer MD, [facility] CPT-4: 73914 07/23/2016 ([id number]) 95984 EST. PATIENT, LEVEL III Diagnosis: Acute recurrent maxillary sinusitis[ICD10: J01.01] Shalini Iyer MD, [facility] CPT-4: 18691 05/19/2016 ([id number]) 18485 EST. PATIENT, LEVEL III Diagnosis: Type 2 diabetes mellitus without complications[ICD10: E11.9] Diagnosis: Essential (primary) hypertension[ICD10: I10] Diagnosis: Allergic rhinitis due to pollen[ICD10: J30.1] Shalini Iyer MD, [facility] CPT-4: 69176 04/21/2016 ([id number]) 33465 EST. PATIENT, LEVEL III Diagnosis: Pain in left knee[ICD10: M25.562] Diagnosis: Localized edema[ICD10: R60.0] Shalini Iyer MD, [facility] CPT-4: 04412 03/26/2016 ([id number]) 55400 EST. PATIENT, LEVEL IV Diagnosis: Essential (primary) hypertension[ICD10: I10] Diagnosis: Type 2 diabetes mellitus without complications[ICD10: E11.9] Diagnosis: Pain in right shoulder[ICD10: M25.511] Shalini Iyer MD, [facility] CPT-4: 26063 01/27/2016 ([id number]) 31903 EST. PATIENT, LEVEL IV Diagnosis: Essential (primary) hypertension[ICD10: I10] Diagnosis: Allergic rhinitis due to pollen[ICD10: J30.1] Diagnosis: Type 2 diabetes mellitus without complications[ICD10: E11.9] Diagnosis: Hypothyroidism, unspecified[ICD10: E03.9] Shaliin Iyer MD, [facility] CPT-4: 01034 10/28/2015 ([id number]) 27650 EST. PATIENT, LEVEL IV Diagnosis: Essential (primary) hypertension[ICD10: I10] Diagnosis: Type 2 diabetes mellitus without complications[ICD10: E11.9] Diagnosis: Hypothyroidism, unspecified[ICD10: E03.9] Diagnosis: Lichen planus, unspecified[ICD10: L43.9] Shalini Iyer MD, [facility] CPT-4: 18283 08/27/2015 ([id number]) 74894 EST. PATIENT, LEVEL III Diagnosis: Cervical disc disorder with radiculopathy, unspecified cervical region[ICD10: M50.10] Diagnosis: Type 2 diabetes mellitus without complications[ICD10: E11.9] Diagnosis: Essential (primary) hypertension[ICD10: I10] Shalini Iyer MD, [facility] CPT-4: 27014 06/06/2015 ([id number]) 14031 EST. PATIENT, LEVEL III Diagnosis: Cervicalgia[ICD10: M54.2] Shalini Iyer MD, [facility] CPT-4: 72130 04/30/2015 ([id number]) 69521 EST. PATIENT, LEVEL III Diagnosis: Essential (primary) hypertension[ICD10: I10] Diagnosis: Type 2 diabetes mellitus without complications[ICD10: E11.9] Diagnosis: Primary osteoarthritis, unspecified site[ICD10: M19.91] Shalini Iyer MD, [facility] CPT-4: 70229 04/23/2015 ([id number]) 74118 EST. PATIENT, LEVEL IV Diagnosis: ESSENTIAL HYPERTENSION[ICD9: 401.9] Diagnosis: DIABETES TYPE II[ICD9: 250.00] Diagnosis: Osteoarthritis[ICD9: 715.90] Shalini Iyer MD, [facility] CPT-4: 31659 03/04/2015 ([id number]) OFFICE VISIT, NEW - LEVEL 4 Diagnosis: ESSENTIAL HYPERTENSION[ICD9: 401.9] Diagnosis: Hypothyroidism[ICD9: 244.9] Diagnosis: DIABETES TYPE II[ICD9: 250.00] Diagnosis: ACTINIC KERATOSIS[ICD9: 702.0] Shalini Iyer MD, [facility] CPT-4: 66365 12/04/2014 Plan of Care Planned Activity Notes Codes Status Date Visit Plan: Bronchitis - acute case of bronchitis identified. Pt has been given antibiotics, steroids as appropriate, and pt has been instructed to call if symptoms are not improved, or if symptoms acutely worsen. 08/18/2017 Appointment: Zenobia Desouza WPtel: [phone] [phone] (15 min) Moderate 08/18/2017 Patient Education: Patient Medication Summary Completed 08/18/2017 Visit Plan: Bronchitis - acute case of bronchitis identified. Pt has been given antibiotics, breathing treatments as appropriate, and pt has been instructed to call if symptoms are not improved, or if symptoms acutely worsen. 08/03/2017 Appointment: Ayana Iyer WPtel: [phone] [phone] (15 min) Moderate 08/03/2017 Patient Education: Patient Medication Summary Completed 08/03/2017 Visit Plan: Hypertension - well controlled - continue with current medications, continue with no added salt diet. Pt has been encouraged to exercise daily. The pt has been advised to call the office if there are any acute concerns about change in blood pressure readings at home. 07/05/2017 Appointment: Shalini Mitchell WPtel: [phone] [phone] (30 min) Complex 07/05/2017 Patient Education: Patient Medication Summary Completed 07/05/2017 Patient Education: Patient Medication Summary Completed 04/30/2017 Care Plan: %Hba1C LOINC : 12484-3 Pending 04/30/2017 Visit Plan: Hypertension - well [...] of control. 04/23/2017 Appointment: Shalini Mitchell WPtel: [phone] (30 min) Complex 04/23/2017 Patient Education: Patient [...] allergy spray. 04/08/2017 Appointment: Shalini Mitchell WPtel[phone] (15 min) Moderate 04/08/2017 Patient Education: [...] spray. 01/21/2017 Appointment: Shalini Mitchell WPtel: [phone] [phone] (15 min) Moderate 01/21/2017 Patient Education: Patient Medication Summary Completed 01/21/2017 [phone] (15 min) Moderate 01/18/2017 Visit Plan: [...] symptoms persist 10/19/2016 Appointment: Shalini Mitchell WPtel: [address] [place], [place] [phone] (30 min) [facility] 10/19/2016 Patient Education: Patient Medication Summary [...] medications. 07/23/2016 Appointment: Shalini Mitchell WPtel: [phone] (30 min) Complex 07/23/2016 Patient Education: Patient Medication Summary Completed 07/23/2016 Visit Plan: Sinusitis - Pt has acute infection - pain in face, maxillary region, Pt informed to use decongestant, RX given to patient, sinus rinses also recommended. Call if symptoms do not show improvement. Kenalog injection today in the office. 05/19/2016 Appointment: Shalini Mitchell WPtel: [phone] (15 min) Moderate 05/19/2016 Patient Education: Patient Medication Summary Completed 05/19/2016 Appointment: Injection 05/12/2016 Patient Education: Patient Medication Summary Completed 05/12/2016 Appointment: Injection 05/05/2016 Patient Education: Patient Medication Summary Completed 05/05/2016 Appointment: Shalini Mitchell WPtel: [phone] (30 min) Complex 05/01/2016 Appointment: Injection 04/24/2016 [...] spray. 04/21/2016 Appointment: Shalini Mitchell WPtel: [phone] [phone] (30 min) Complex 04/21/2016 Patient Education: Patient [...] edema. 03/26/2016 Appointment: Shalini Mitchell WPtel: [phone] (15 min) Moderate 03/26/2016 Patient Education: Patient [...] based on previous levels of control. Lichen mwwwzv-[id number]-tz manager long term care doxycycline per Dr [...] based on previous levels of control. Lichen mrubug-npkqv-yd manager long term care doxycycline per Dr [...] Care Plan: COMPLETE CBC AUTOMATED LOINC : 38341-7 Ordered 12/04/2014 Instructions Comment . Hypertension - [...] [facility] FASTING LABS ON WEDNESDAY AT [employer] PAPERWORK CONCERNING FITTED SHOES FROM DR. COLÓN [...] symptoms persist FASTING LABS ON WEDNESDAY AT [employer] PAPERWORK CONCERNING FITTED SHOES FROM DR. COLÓN [...] to see Dr Aleisha jain Ravinder will hand picker a copy of his labs Ellie [...] based on previous levels of control. Lichen bjraop-dwsdu-ed manager long term care doxycycline per Dr Iyer-javi centeno-check labs-continue clobetasol . Bronchitis - acute case of bronchitis [...] spray in the nasal steroid allergy spray. SWITCH BACK TO ELLIE DAILY FOR ALLERGY [...] based on previous levels of control. 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 Hypertension - well controlled - continue [...] Kenalog injection today in the office. . Bronchitis - acute case of bronchitis [...] in blood pressure readings at home. . Hypertension - well controlled - continue [...] based on previous levels of control. . Left knee pain-continue rest, ice, and [...]
[2018-04-26 12:16] LABS: PROTHROMBIN TIME PATIENT 13.5 SEC (12.2-14.7)
--- OUTSIDE RECORDS SUMMARY | 2018-04-26 12:20 | XMS REPORT | CCD ---
Author Author Shalini Mitchell MD, [facility] Address [address] [place] [address] Phone Care Team Providers Care Anti Tank Missileman Name Role Phone PP Unavailable CCM Unavailable Summary Purpose Interface Exchange Insurance Providers Payer name Policy type / Coverage type Covered republican ID Effective Begin Date Effective End Date WPS Medicare Part B Medicare Part B [id number] Unknown Unknown [facility] Medicare Part B [id number] Unknown Unknown Family History Family History data not found Social History Social History Element Codes Description Effective Dates Marital status Unknown 12/04/2014 Number of children Unknown 3 12/04/2014 Employment Unknown Retired [employer] 12/04/[address]: 1060727 Quit over 10 years ago 12/04/[address]: 649793632 Never drinks alcohol 12/04/2014 Allergies, Adverse Reactions, [...] Start Date Stop Date Status Fill Instructions Phenergan-Codeine 6.25 mg-10 mg/5 mL syrup RxNorm: 179202 5 to 10 ml PO Q6 as needed 08/17/2017 08/22/2017 Active Zithromax Z-Anil 250 mg tablet RxNorm: 429290 1 Tablet(s) PO UD 2017 08/16/2017 Inactive zpack ceftriaxone 500 mg solution for injection RxNorm: 3251602 Inj 08/03/2017 08/03/2017 Inactive cephalexin 500 mg capsule RxNorm: 941370 1 Capsule(s) PO QID 08/09/2017 Inactive Kenalog 40 mg/mL suspension for injection RxNorm: 2252159 1 Milliliter(s) Inj 08/03/2017 08/03/2017 Inactive losartan 50 mg tablet RxNorm: 218436 TAKE ONE TABLET BY MOUTH ONCE DAILY IN THE MORNING 08/02/2017 No Stop Date Active simvastatin 10 mg tablet RxNorm: 572513 TAKE ONE TABLET BY MOUTH ONCE DAILY 08/02/2017 No Stop Date Active levothyroxine 137 mcg tablet RxNorm: 974869 TAKE ONE TABLET BY MOUTH ONCE DAILY 07/26/2017 No Stop Date Active Flonase Allergy Relief 50 mcg/actuation nasal spray, suspension RxNorm: 0122886 USE TWO SPRAY(S) IN EACH NOSTRIL ONCE DAILY 06/28/2017 No Stop Date Active baclofen 10 mg tablet RxNorm: 652059 TAKE ONE TABLET BY MOUTH THREE TIMES DAILY NEEDED FOR MUSCLE SPASM 06/28/2017 No Stop Date Active Kenalog 40 mg/mL suspension for injection RxNorm: 2660076 1 Milliliter(s) Inj 04/08/2017 04/08/2017 Inactive doxycycline hyclate 100 mg tablet RxNorm: 202021 1 Tablet(s) PO BID 04/01/2017 04/10/2017 Inactive PLEASE GIVE 90 DAY SUPPLY losartan 50 mg tablet RxNorm: 643979 TAKE ONE TABLET BY MOUTH ONCE DAILY IN THE MORNING 02/01/2017 07/30/2017 Inactive levothyroxine 137 mcg tablet RxNorm: 305705 1 Tablet(s) PO daily 01/22/2017 07/20/2017 Inactive hold until he calls for fill- using samples from office metoprolol succinate ER 25 mg tablet,extended release 24 hr RxNorm: 533654 1 Tablet(s) PO daily 01/11/2017 01/05/2018 Active tamsulosin 0.4 mg capsule RxNorm: 616221 TAKE ONE CAPSULE BY MOUTH ONCE DAILY 01/11/2017 10/07/2017 Active simvastatin 10 mg tablet RxNorm: 878879 TAKE ONE TABLET BY MOUTH ONCE DAILY 12/17/2016 06/14/2017 Inactive levothyroxine 150 mcg tablet RxNorm: 028434 1 Tablet(s) PO daily 09/24/2016 01/21/2017 Inactive doxycycline hyclate 100 mg tablet RxNorm: 685098 1 Tablet(s) PO daily 07/30/2016 01/25/2017 Inactive PLEASE GIVE 90 DAY SUPPLY doxycycline hyclate 100 mg tablet RxNorm: 179323 1 Tablet(s) PO daily 07/27/2016 07/29/2016 Inactive PLEASE GIVE 90 DAY SUPPLY quinine 324 mg capsule RxNorm: 702179 1 Capsule(s) PO HS PRN No Stop Date Active LEG CRAMPS doxycycline hyclate 100 mg tablet RxNorm: 642702 1 Tablet(s) PO daily 05/29/2016 07/26/2016 Inactive PLEASE GIVE 90 DAY SUPPLY Kenalog 40 mg/mL suspension for injection RxNorm: 4403654 Milliliter(s) Inj 05/19/2016 05/19/2016 Inactive Levaquin 500 mg tablet RxNorm: 731916 1 Tablet(s) PO daily 07/201505/25/2016 Inactive Zithromax Z-Anil 250 mg tablet RxNorm: 063649 1 Tablet(s) PO UD 05/14/2016 09/09/2016 Inactive zpack Kenalog 40 mg/mL suspension for injection RxNorm: 8935168 Milliliter(s) Inj 05/12/2016 05/12/2016 Inactive Zithromax Z-Anil 250 mg tablet RxNorm: 715289 1 Tablet(s) PO UD 05/08/2016 05/12/2016 Inactive zpack Flonase Allergy Relief 50 mcg/actuation nasal spray, suspension RxNorm: 8860847 2 Normanna NASAL daily 04/21/20162016 Inactive levothyroxine 150 mcg tablet RxNorm: 892276 1 Tablet(s) PO daily 04/21/2016 09/23/2016 Inactive baclofen 10 mg tablet RxNorm: 184316 1 Tablet(s) PO TID as needed for muscle spasms 04/10/2016 11/05/2016 Inactive Flonase Allergy Relief 50 mcg/actuation nasal spray, suspension RxNorm: 0212254 2 Normanna NASAL daily 01/27/20162015 Inactive losartan 50 mg tablet RxNorm: 357187 1 Tablet(s) PO QAM 201501/09/2017 Inactive magnesium oxide 400 mg tablet RxNorm: 151355 1 Tablet(s) PO daily 01/16/2016 01/09/2017 Inactive omega 8-rlm-itl-fish oil 300 mg-1,000 mg capsule,delayed release RxNorm: 1 Capsule(s) PO daily 01/16/2016 01/09/2017 Inactive ask pt if this is needed- he may use OTC levothyroxine 175 mcg tablet RxNorm: 081893 1 Tablet(s) PO daily 01/16/2016 04/20/2016 Inactive metoprolol succinate ER 25 mg tablet,extended release 24 hr RxNorm: 160027 1 Tablet(s) PO daily 01/16/2016 01/09/2017 Inactive baclofen 10 mg tablet RxNorm: 121201 1 Tablet(s) PO TID as needed for muscle spasms 01/16/2016 04/09/2016 Inactive omega 3-sor-lyi-fish oil 300 mg-1,000 mg capsule,delayed release RxNorm: 1 Capsule(s) PO daily 01/16/2016 01/15/2016 Inactive ask pt if this is needed- he may use OTC simvastatin 10 mg tablet RxNorm: 066579 1 Tablet(s) PO daily 12/16/2016 Inactive tamsulosin 0.4 mg capsule RxNorm: 018205 TAKE ONE CAPSULE BY MOUTH ONCE DAILY 01/05/2016 01/10/2017 Inactive levothyroxine 150 mcg tablet RxNorm: 953133 1 Tablet(s) PO daily 12/05/2015 12/04/2015 Inactive levothyroxine 150 mcg tablet RxNorm: 777651 1 Tablet(s) PO daily 12/05/2015 01/15/2016 Inactive metoprolol succinate ER 25 mg tablet,extended release 24 hr RxNorm: 426223 1 Tablet(s) PO daily 10/22/2015 01/15/2016 Inactive losartan 50 mg tablet RxNorm: 328427 1 Tablet(s) PO QAM 201501/15/2016 Inactive levothyroxine 175 mcg tablet RxNorm: 675389 1 Tablet(s) PO daily 09/09/2015 12/04/2015 Inactive doxycycline hyclate 100 mg tablet RxNorm: 834282 1 Tablet(s) PO daily 08/27/2015 01/15/2016 Inactive PLEASE GIVE 90 DAY SUPPLY doxycycline hyclate 100 mg tablet RxNorm: 315590 1 Tablet(s) PO daily 08/27/2015 08/26/2015 Inactive chlorzoxazone 500 mg tablet RxNorm: 118154 1 Tablet(s) PO Q6 as needed muscle spasms 08/15/2015 03/11/2016 Inactive chlorzoxazone 500 mg tablet RxNorm: 784689 1 Tablet(s) PO Q6 as needed muscle spasms 08/15/2015 08/14/2015 Inactive ketoconazole 2 % shampoo RxNorm: 715342 1 Application TOP UD 08/04/2015 Inactive ketoconazole 2 % shampoo RxNorm: 881122 1 Application TOP UD 01/15/2016 Inactive clobetasol 0.05 % topical solution RxNorm: 132678 1 Application TOP daily 08/01/2015 07/31/2015 Inactive clobetasol 0.05 % topical solution RxNorm: 495571 1 Application TOP daily 08/01/2015 01/15/2016 Inactive levothyroxine 175 mcg tablet RxNorm: 116378 1 Tablet(s) PO daily 07/22/2015 09/08/2015 Inactive doxycycline hyclate 100 mg tablet RxNorm: 729559 1 Tablet(s) PO daily 07/17/2015 08/15/2015 Inactive levothyroxine 175 mcg tablet RxNorm: 221138 Tablet(s) PO every other day 07/17/2015 07/21/2015 Inactive Zithromax Z-Anil 250 mg tablet RxNorm: 132988 1 Tablet(s) PO 05/07/2016 Inactive 1 zpack finasteride 5 mg tablet RxNorm: 626130 1 Tablet(s) PO daily 12/27/2015 Inactive simvastatin 10 mg tablet RxNorm: 715713 1 Tablet(s) PO daily 12/27/2015 Inactive clopidogrel 75 mg tablet RxNorm: 352387 1 Tablet(s) PO daily 01/15/2016 Inactive metoprolol succinate ER 25 mg tablet,extended release 24 hr RxNorm: 476441 1 Tablet(s) PO daily 07/01/2015 10/21/2015 Inactive levothyroxine 150 mcg tablet RxNorm: 652483 1 Tablet(s) PO daily 07/01/2015 07/21/2015 Inactive tamsulosin 0.4 mg capsule RxNorm: 029344 1 Capsule(s) PO daily 07/01/2015 12/27/2015 Inactive losartan 50 mg tablet RxNorm: 686393 1 Tablet(s) PO QA 201410/17/2015 Inactive levothyroxine 150 mcg tablet RxNorm: 380141 1 Tablet(s) PO daily 07/01/2015 06/30/2015 Inactive Zithromax Z-Anil 250 mg tablet RxNorm: 634726 1 Tablet(s) PO 03/201507/09/2015 Inactive 1 zpack Januvia 100 mg tablet RxNorm: 476751 1/2 Tablet(s) PO BID 201405/22/2015 Inactive Januvia 50 mg tablet RxNorm: 576941 1 Tablet(s) PO BID 201404/22/2015 Inactive chlorzoxazone 500 mg tablet RxNorm: 025593 1 Tablet(s) PO Q6 as needed muscle spasms 01/21/2015 01/20/2015 Inactive baclofen 10 mg tablet RxNorm: 234276 1 Tablet(s) PO TID as needed for muscle spasms 01/21/2015 06/30/2015 Inactive chlorzoxazone 500 mg tablet RxNorm: 086854 1 Tablet(s) PO Q6 as needed muscle spasms 01/21/2015 03/03/2015 Inactive Vitamin D3 2,000 unit tablet RxNorm: 765771 Tablet(s) PO BID No Stop Date Active [SAVINGS FOR NON-COVERED DRUGS -- BIN:[id number], PCN: [id number], Group: XXXXX , ID# [id number], Questions: . THIS IS NOT INSURANCE.] Claritin 10 mg tablet RxNorm: 678528 1 Tablet(s) PO daily No Start Date Active aspirin 81 mg tablet RxNorm: 474271 Tablet(s) PO daily No Start Date Active Centrum Silver oral RxNorm: 67395 oral No Start Date Active Calcium Citrate + D 600 mg RxNorm: 630mg PO daily No Start Date Active sodium chloride oral RxNorm: oral No Start Date Active Vitamin C 500 mg chewable tablet RxNorm: 262279 1 Tablet(s) PO No Start Date Active Vitamin B12 Oral RxNorm: oral No Start Date Active Fish Oil (with DHA-EPA) capsule RxNorm: oral No Start Date 01/15/2016 Inactive clopidogrel 75 mg tablet RxNorm: 953774 1 Tablet(s) PO daily No Start Date 06/30/2015 Inactive metoprolol succinate ER 25 mg tablet,extended release 24 hr RxNorm: 542089 1 Tablet(s) PO daily No Start Date 2014 Inactive simvastatin 10 mg tablet RxNorm: 911972 1 Tablet(s) PO daily No Start Date 06/30/2015 Inactive Claritin 10 mg tablet RxNorm: 006307 1 Tablet(s) PO daily No Start Date 07/16/2015 Inactive levothyroxine 175 mcg tablet RxNorm: 273743 Tablet(s) PO every other day No Start Date 06/30/2015 Inactive Vitamin D3 2,000 unit tablet RxNorm: 747946 Tablet(s) PO daily No Start Date 12/03/2014 Inactive losartan 50 mg tablet RxNorm: 685575 1 Tablet(s) PO QAM No Start Date 06/30/2015 Inactive magnesium oxide 400 mg tablet RxNorm: 890739 1 Tablet(s) PO daily No Start Date 01/15/2016 Inactive Phenergan-Codeine 6.25 mg-10 mg/5 mL syrup RxNorm: 840979 5 to 10 ml PO Q6 No Start Date 08/16/2017 Inactive baclofen 10 mg tablet RxNorm: 803662 1 Tablet(s) PO TID as needed for muscle spasms No Start Date 01/20/2015 Inactive finasteride 5 mg tablet RxNorm: 485131 1 Tablet(s) PO daily No Start Date 06/30/2015 Inactive quinine 324 mg capsule RxNorm: 227243 1 Capsule(s) PO HS PRN No Start Date 06/14/2016 Inactive LEG CRAMPS Vitamin D3 (with calcium carbonate) oral RxNorm: 147386 oral No Start Date 01/15/2016 Inactive Zithromax Z-Anil 250 mg tablet RxNorm: 060378 1 Tablet(s) PO No Start Date 06/25/2015 Inactive 1 zpack levothyroxine 150 mcg tablet RxNorm: 050810 Tablet(s) PO every other day No Start Date 06/30/2015 Inactive Januvia 50 mg tablet RxNorm: 860561 1 Tablet(s) PO daily No Start Date 03/06/2015 Inactive fluticasone 50 mcg/actuation nasal spray,suspension RxNorm: 356053 1 Normanna NASAL daily No Start Date 01/15/2016 Inactive tamsulosin ER 0.4 mg capsule,extended release 24 hr RxNorm: 177555 1 Capsule(s) PO daily No Start Date 06/30/2015 Inactive Ynes 180 mg tablet RxNorm: 422111 1 Tablet(s) PO daily No Start Date 01/15/2016 Inactive Medication Administered Medication Codes Instructions Start Date Status ceftriaxone 500 mg solution for injection RxNorm: 9205141 08/03/2017 No longer Active Kenalog 40 mg/mL suspension for injection RxNorm: 5142222 1Milliliter 08/03/2017 No longer Active Kenalog 40 mg/mL suspension for injection RxNorm: 3120062 1Milliliter 04/08/2017 No longer Active Kenalog 40 mg/mL suspension for injection RxNorm: 2523700 Milliliter 05/19/2016 No longer Active Kenalog 40 mg/mL suspension for injection RxNorm: 5118462 Milliliter 05/12/2016 No longer Active Immunizations Vaccine [...] Item Code Result Date Lipid Ord30 CHOL 132 mg/dL 04/28/2017 Lipid Ord30 HDL 54.0 mg/dl 04/28/2017 Lipid Ord30 TRIG 72 mg/dL 04/28/2017 Lipid Ord30 LDL 64 mg/dL 04/28/2017 Lipid Ord30 C/HDL 2.4 Ratio 04/28/2017 Free T4 Iir209 FREE T4 1.07 ng/dL 04/28/2017 Comp Metabolic Htm562 NA 140 mEq/L 04/28/2017 Comp Metabolic Otk803 K 4.6 mEq/L 04/28/2017 Comp Metabolic Nau174 CL 104 mEq/L 04/28/2017 Comp Metabolic Bgj509 CO2 27.0 mEq/L 04/28/2017 Comp Metabolic Gzc738 ANION GAP 14 04/28/2017 Comp Metabolic Ljr227 GLUCOSE 141 mg/dL 04/28/2017 Comp Metabolic Rpn130 Creat 1.0 mg/dL 04/28/2017 Comp Metabolic Bwz207 eGFR 79 ml/min/1.73m2 04/28/2017 Comp Metabolic Beu864 BUN 26 mg/dL 04/28/2017 Comp Metabolic Dlk698 B/C Ratio 26.8 Ratio 04/28/2017 Comp Metabolic Dij702 CALCIUM 9.4 mg/dL 04/28/2017 Comp Metabolic Iyn805 ALK PHOS 66 U/L 04/28/2017 Comp Metabolic Ktl792 AST(SGOT) 21 U/L 04/28/2017 Comp Metabolic Fyg012 ALT(SGPT) 20 U/L 04/28/2017 Comp Metabolic Kcm270 BILI T 1.3 mg/dL 04/28/2017 Comp Metabolic Uwf019 ALBUMIN 4.1 g/dL 04/28/2017 Comp Metabolic Tgv957 TPRO 6.3 g/dL 04/28/2017 Comp Metabolic Lvq710 GLOB 2.2 g/dL 04/28/2017 Comp Metabolic Qbz385 A/G Ratio 1.9 Ratio 04/28/2017 Comp Metabolic Gec672 Osmo 287 mOsmo 04/28/2017 Tsh Ord6 hTSH II 1.64 uIU/mL [...] 29.5 pg 04/28/2017 Cbc With Differential Ord2 Overton% 14.0 % 04/28/2017 Cbc With Differential Ord2 Eos% 3.3 % 04/28/2017 Cbc With Differential Ord2 MCHC 32.9 pg 04/28/2017 Cbc With Differential Ord2 PLT 296 K/ul 04/28/2017 Cbc With Differential Ord2 Baso% 0.5 % 04/28/2017 Cbc With Differential Ord2 RDW 15.2 % 04/28/2017 Cbc With Differential Ord2 Neut ABS# 4.98 K/ul 04/28/2017 Cbc With Differential Ord2 Lymph ABS# 1.07 K/ul 04/28/2017 Cbc With Differential Ord2 [place] ABS# 1.0 K/ul 04/28/2017 Cbc With Differential Ord2 Eos ABS# 0.2 K/ul 04/28/2017 Cbc With Differential Ord2 Baso ABS# 0.0 K/ul 04/28/2017 %Hba1C Ole838 % HbA1c 93573-5 6.5 % 04/28/2017 %Hba1C Ocf471 Gluc Ave 140 mg/dL 04/28/2017 Comp Metabolic Gdh817 NA 140 mEq/L 01/22/2017 Comp Metabolic Bkv186 K 4.3 mEq/L 01/22/2017 Comp Metabolic Ioa249 CL 104 mEq/L 01/22/2017 Comp Metabolic Yeh964 CO2 29.0 mEq/L 01/22/2017 Comp Metabolic Ckq340 ANION GAP 11 01/22/2017 Comp Metabolic Xsy726 GLUCOSE 146 mg/dL 01/22/2017 Comp Metabolic Spm512 Creat 0.8 mg/dL 01/22/2017 Comp Metabolic Yyz040 eGFR 100 ml/min/1.73m2 01/22/2017 Comp Metabolic Jxl349 BUN 19 mg/dL 01/22/2017 Comp Metabolic Egu040 B/C Ratio 24.1 Ratio 01/22/2017 Comp Metabolic Yga072 CALCIUM 9.2 mg/dL 01/22/2017 Comp Metabolic Ect670 ALK PHOS 60 U/L 01/22/2017 Comp Metabolic Zhn579 AST(SGOT) 18 U/L 01/22/2017 Comp Metabolic Fiw032 ALT(SGPT) 17 U/L 01/22/2017 Comp Metabolic Ads832 BILI T 0.6 mg/dL 01/22/2017 Comp Metabolic Guf689 ALBUMIN 3.7 g/dL 01/22/2017 Comp Metabolic Owa836 TPRO 5.8 g/dL 01/22/2017 Comp Metabolic Zws510 GLOB 2.1 g/dL 01/22/2017 Comp Metabolic Glb032 A/G Ratio 1.7 Ratio 01/22/2017 Comp Metabolic Wgl533 Osmo 284 mOsmo 01/22/2017 Free T4 Fcs518 FREE T4 0.96 ng/dL 01/22/2017 Cbc With Differential Ord2 WBC 6.68 [...] 30.2 pg 01/22/2017 Cbc With Differential Ord2 [place]% 14.1 % 01/22/2017 Cbc With Differential Ord2 MCHC 32.9 pg 01/22/2017 Cbc With Differential Ord2 Eos% 2.5 % 01/22/2017 Cbc With Differential Ord2 PLT 261 K/ul 01/22/2017 Cbc With Differential Ord2 Baso% 0.7 % 01/22/2017 Cbc With Differential Ord2 Neut ABS# 4.51 K/ul 01/22/2017 Cbc With Differential Ord2 RDW 14.1 % 01/22/2017 Cbc With Differential Ord2 Lymph ABS# 1.01 K/ul 01/22/2017 Cbc With Differential Ord2 [place] ABS# 0.9 K/ul 01/22/2017 Cbc With Differential Ord2 Eos ABS# 0.2 K/ul 01/22/2017 Cbc With Differential Ord2 Baso ABS# 0.1 K/ul 01/22/2017 Tsh Ord6 hTSH II 0.26 uIU/mL 01/22/2017 %Hba1C Tci752 % HbA1c 76568-9 6.6 % 01/22/2017 %Hba1C Gbe357 Gluc Ave 143 mg/dL 01/22/2017 Lipid Ord30 CHOL 126 mg/dL 01/22/2017 Lipid Ord30 HDL 43.0 mg/dl 01/22/2017 Lipid Ord30 TRIG 111 mg/dL 01/22/2017 Lipid Ord30 LDL 61 mg/dL 01/22/2017 Lipid Ord30 C/HDL 2.9 Ratio 01/22/2017 Free T4 Fhs970 FREE T4 0.99 ng/dL 10/23/2016 Tsh Ord6 hTSH II 0.70 uIU/mL 10/23/2016 Lipid Ord30 CHOL 134 mg/dL 10/23/2016 [...] 69.7 % 10/23/2016 Cbc With Differential Ord2 MCV 92.9 fl 10/23/2016 Cbc With Differential Ord2 Lymph% 13.6 % 10/23/2016 Cbc With Differential Ord2 [place]% 12.7 % 10/23/2016 Cbc With Differential Ord2 [...] 0.79 K/ul 10/23/2016 Cbc With Differential Ord2 [place] ABS# 0.7 K/ul 10/23/2016 Cbc With Differential Ord2 Eos ABS# 0.2 K/ul 10/23/2016 Cbc With Differential Ord2 Baso ABS# 0.0 K/ul 10/23/2016 Comp Metabolic Fip744 NA 141 mEq/L 10/23/2016 Comp Metabolic Ywr391 K 4.3 mEq/L 10/23/2016 Comp Metabolic Dxf715 CL 104 mEq/L 10/23/2016 Comp Metabolic Lzm793 CO2 29.0 mEq/L 10/23/2016 Comp Metabolic Bae249 ANION GAP 12 10/23/2016 Comp Metabolic Zld267 GLUCOSE 156 mg/dL 10/23/2016 Comp Metabolic Gdc574 Creat 0.9 mg/dL 10/23/2016 Comp Metabolic Fij560 eGFR 85 ml/min/1.73m2 10/23/2016 Comp Metabolic Ruw478 BUN 19 mg/dL 10/23/2016 Comp Metabolic Lns246 B/C Ratio 20.9 Ratio 10/23/2016 Comp Metabolic Ozw523 CALCIUM 9.2 mg/dL 10/23/2016 Comp Metabolic Jty774 ALK PHOS 72 U/L 10/23/2016 Comp Metabolic Vcn167 AST(SGOT) 21 U/L 10/23/2016 Comp Metabolic Lcv225 ALT(SGPT) 19 U/L 10/23/2016 Comp Metabolic Bmh743 BILI T 0.8 mg/dL 10/23/2016 Comp Metabolic Pdz029 ALBUMIN 3.8 g/dL 10/23/2016 Comp Metabolic Ugk718 TPRO 6.2 g/dL 10/23/2016 Comp Metabolic Pdi034 GLOB 2.4 g/dL 10/23/2016 Comp Metabolic Zpp665 A/G Ratio 1.6 Ratio 10/23/2016 Comp Metabolic Gfl837 Osmo 287 mOsmo 10/23/2016 %Hba1C Pke872 % HbA1c 30103-4 7.0 % 10/23/2016 %Hba1C Xnn847 Gluc Ave 154 mg/dL 10/23/2016 %Hba1C Wth089 % HbA1c 91413-6 7.1 % 07/24/2016 %Hba1C Cbl221 Gluc Ave 157 mg/dL 07/24/2016 Tsh Ord6 hTSH II 0.84 uIU/mL 07/24/2016 Comp Metabolic Spj482 NA 139 mEq/L 07/24/2016 Comp Metabolic Idi494 K 4.5 mEq/L 07/24/2016 Comp Metabolic Bmk894 CL 103 mEq/L 07/24/2016 Comp Metabolic Pwj491 CO2 30.0 mEq/L 07/24/2016 Comp Metabolic Nit977 ANION GAP 11 07/24/2016 Comp Metabolic Mxj932 GLUCOSE 161 mg/dL 07/24/2016 Comp Metabolic Ydl906 Creat 1.0 mg/dL 07/24/2016 Comp Metabolic Zbt874 eGFR 80 ml/min/1.73m2 07/24/2016 Comp Metabolic Asm036 BUN 23 mg/dL 07/24/2016 Comp Metabolic Mlv649 B/C Ratio 24.0 Ratio 07/24/2016 Comp Metabolic Bss103 CALCIUM 9.4 mg/dL 07/24/2016 Comp Metabolic Pgz109 ALK PHOS 66 U/L 07/24/2016 Comp Metabolic Ngx160 AST(SGOT) 18 U/L 07/24/2016 Comp Metabolic Ync344 ALT(SGPT) 22 U/L 07/24/2016 Comp Metabolic Cwc200 BILI T 1.1 mg/dL 07/24/2016 Comp Metabolic Wgb392 ALBUMIN 4.0 g/dL 07/24/2016 Comp Metabolic Rco947 TPRO 6.4 g/dL 07/24/2016 Comp Metabolic Zvw803 GLOB 2.4 g/dL 07/24/2016 Comp Metabolic Wgh378 A/G Ratio 1.6 Ratio 07/24/2016 Comp Metabolic Hrk009 Osmo 285 mOsmo 07/24/2016 Lipid Ord30 CHOL 136 mg/dL 07/24/2016 Lipid Ord30 HDL 52.0 mg/dl 07/24/2016 Lipid Ord30 TRIG 83 mg/dL 07/24/2016 Lipid Ord30 LDL 67 mg/dL 07/24/2016 Lipid Ord30 C/HDL 2.6 Ratio 07/24/2016 Cbc With Differential Ord2 WBC 7.56 K/ul 07/24/2016 Cbc With Differential Ord2 RBC 4.70 M/ul 07/24/2016 Cbc With Differential Ord2 HGB 14.4 g/dl 07/24/2016 Cbc With Differential Ord2 HCT 43.7 % 07/24/2016 Cbc With Differential Ord2 Neut% 63.2 % 07/24/2016 Cbc With Differential Ord2 MCV 93.0 fl 07/24/2016 Cbc With Differential Ord2 Lymph% 20.6 % 07/24/2016 Cbc With Differential Ord2 [place]% 13.8 % 07/24/2016 Cbc With Differential Ord2 MCH 30.6 pg 07/24/2016 Cbc With Differential Ord2 Eos% 2.0 % 07/24/2016 Cbc With Differential Ord2 MCHC 33.0 pg 07/24/2016 Cbc With Differential Ord2 Baso% 0.4 % 07/24/2016 Cbc With Differential Ord2 PLT 287 K/ul 07/24/2016 Cbc With Differential Ord2 RDW 15.0 % 07/24/2016 Cbc With Differential Ord2 Neut ABS# 4.78 K/ul 07/24/2016 Cbc With Differential Ord2 Lymph ABS# 1.56 K/ul 07/24/2016 Cbc With Differential Ord2 [place] ABS# 1.0 K/ul 07/24/2016 Cbc With Differential Ord2 Eos ABS# 0.2 K/ul 07/24/2016 Cbc With Differential Ord2 Baso ABS# 0.0 K/ul 07/24/2016 Tsh Ord6 hTSH II 0.92 uIU/mL 03/11/2016 %Hba1C Umj146 % HbA1c 59803-2 7.0 % 03/11/2016 %Hba1C Alz163 Gluc Ave 154 mg/dL 03/11/2016 Free T4 Udo455 FREE T4 0.92 ng/dL 03/11/2016 Lipid Ord30 CHOL 123 mg/dL 11/27/2015 Lipid Ord30 HDL 41.0 mg/dl 11/27/2015 Lipid Ord30 TRIG 130 mg/dL 11/27/2015 Lipid Ord30 LDL 56 mg/dL 11/27/2015 Lipid Ord30 C/HDL 3.0 Ratio 11/27/2015 %Hba1C Zou070 % HbA1c 60115-6 7.1 % 11/27/2015 %Hba1C Rim134 Gluc Ave 157 mg/dL 11/27/2015 Free T4 Qwv191 FREE T4 0.95 ng/dL 11/27/2015 Cbc With [...] 28.8 pg 11/27/2015 Cbc With Differential Ord2 [place]% 13.5 % 11/27/2015 Cbc With Differential Ord2 MCHC 32.8 pg 11/27/2015 Cbc With Differential Ord2 Eos% 3.9 % 11/27/2015 Cbc With Differential Ord2 PLT 304 K/ul 11/27/2015 Cbc With Differential Ord2 Baso% 1.0 % 11/27/2015 Cbc With Differential Ord2 RDW 14.7 % 11/27/2015 Cbc With Differential Ord2 Neut ABS# 3.81 K/ul 11/27/2015 Cbc With Differential Ord2 Lymph ABS# 1.26 K/ul 11/27/2015 Cbc With Differential Ord2 [place] ABS# 0.8 K/ul 11/27/2015 Cbc With Differential Ord2 Eos ABS# 0.2 K/ul 11/27/2015 Cbc With Differential Ord2 Baso ABS# 0.1 K/ul 11/27/2015 Cbc With Differential Ord2 New Analyzer Notice Please note new ref ranges starting 07-31-2015 due to implemntation of new five part differential hematolgy analyzer. 11/27/2015 Tsh Ord6 hTSH II 0.35 uIU/mL 11/27/2015 Comp Metabolic Zex938 NA 139 mEq/L 11/27/2015 Comp Metabolic Hxf528 K 4.4 mEq/L 11/27/2015 Comp Metabolic Qea067 CL 105 mEq/L 11/27/2015 Comp Metabolic Rbh792 CO2 28.0 mEq/L 11/27/2015 Comp Metabolic Qtp026 ANION GAP 10 11/27/2015 Comp Metabolic Upw844 GLUCOSE 139 mg/dL 11/27/2015 Comp Metabolic Pmh033 Creat 0.9 mg/dL 11/27/2015 Comp Metabolic Ush751 eGFR 89 ml/min/1.73m2 11/27/2015 Comp Metabolic Bys990 BUN 15 mg/dL 11/27/2015 Comp Metabolic Wyt421 B/C Ratio 17.2 Ratio 11/27/2015 Comp Metabolic Ngs270 CALCIUM 8.8 mg/dL 11/27/2015 Comp Metabolic Yli478 ALK PHOS 78 U/L 11/27/2015 Comp Metabolic Eoh684 AST(SGOT) 18 U/L 11/27/2015 Comp Metabolic Pts579 ALT(SGPT) 16 U/L 11/27/2015 Comp Metabolic Phy284 BILI T 0.9 mg/dL 11/27/2015 Comp Metabolic Fjw146 ALBUMIN 3.7 g/dL 11/27/2015 Comp Metabolic Mxv657 TPRO 6.2 g/dL 11/27/2015 Comp Metabolic Jhi062 GLOB 2.5 g/dL 11/27/2015 Comp Metabolic Pwx434 A/G Ratio 1.5 Ratio 11/27/2015 Comp Metabolic Gfk117 Osmo 281 mOsmo 11/27/2015 Lipid Ord30 CHOL 147 mg/dL 08/28/2015 Lipid [...] 23.8 % 08/28/2015 Cbc With Differential Ord2 MCH 27.9 pg 08/28/2015 Cbc With Differential Ord2 [place]% 12.7 % 08/28/2015 Cbc With Differential Ord2 MCHC 32.5 pg 08/28/2015 Cbc With Differential Ord2 Eos% 4.0 % 08/28/2015 Cbc With Differential Ord2 Baso% 1.1 % 08/28/2015 Cbc With Differential Ord2 PLT 323 K/ul 08/28/2015 Cbc With Differential Ord2 Neut ABS# 3.76 K/ul 08/28/2015 Cbc With Differential Ord2 RDW 18.3 % 08/28/2015 Cbc With Differential Ord2 Lymph ABS# 1.53 K/ul 08/28/2015 Cbc With Differential Ord2 [place] ABS# 0.8 K/ul 08/28/2015 Cbc With Differential Ord2 Eos ABS# 0.3 K/ul 08/28/2015 Cbc With Differential Ord2 Baso ABS# 0.1 K/ul 08/28/2015 Cbc With Differential Ord2 New Analyzer Notice Please note new ref ranges starting 07-31-2015 due to implemntation of new five part differential hematolgy analyzer. 08/28/2015 %Hba1C Qml769 % HbA1c 26596-2 6.9 % 08/28/2015 %Hba1C Dne269 Gluc Ave 151 mg/dL 08/28/2015 Tsh Ord6 hTSH II 2.87 uIU/mL 08/28/2015 Comp Metabolic Xge629 NA 139 mEq/L 08/28/2015 Comp Metabolic Zlh214 K 4.5 mEq/L 08/28/2015 Comp Metabolic Gxo563 CL 104 mEq/L 08/28/2015 Comp Metabolic Otu720 CO2 28.0 mEq/L 08/28/2015 Comp Metabolic Upf341 ANION GAP 12 08/28/2015 Comp Metabolic Vvd870 GLUCOSE 146 mg/dL 08/28/2015 Comp Metabolic Paz682 Creat 1.0 mg/dL 08/28/2015 Comp Metabolic Vvf465 eGFR 77 ml/min/1.73m2 08/28/2015 Comp Metabolic Yur200 BUN 21 mg/dL 08/28/2015 Comp Metabolic Asc220 B/C Ratio 21.2 Ratio 08/28/2015 Comp Metabolic Gfh795 CALCIUM 9.3 mg/dL 08/28/2015 Comp Metabolic Qfj022 ALK PHOS 70 U/L 08/28/2015 Comp Metabolic Kck340 AST(SGOT) 18 U/L 08/28/2015 Comp Metabolic Fmj192 ALT(SGPT) 16 U/L 08/28/2015 Comp Metabolic Gbo294 BILI T 0.6 mg/dL 08/28/2015 Comp Metabolic Bzi948 ALBUMIN 4.0 g/dL 08/28/2015 Comp Metabolic Zrp842 TPRO 6.4 g/dL 08/28/2015 Comp Metabolic Nvp082 GLOB 2.4 g/dL 08/28/2015 Comp Metabolic Bpo337 A/G Ratio 1.7 Ratio 08/28/2015 Comp Metabolic Kxz643 Osmo 283 mOsmo 08/28/2015 Free T4 Cje765 FREE T4 0.87 ng/dL 08/28/2015 Comp Metabolic Wlj324 NA 137 mEq/L 03/06/2015 Comp Metabolic Pkq810 K 4.2 mEq/L 03/06/2015 Comp Metabolic Sad490 CL 103 mEq/L 03/06/2015 Comp Metabolic Rha710 CO2 30.0 mEq/L 03/06/2015 Comp Metabolic Qzs844 ANION GAP 8 03/06/2015 Comp Metabolic Stc703 GLUCOSE 156 mg/dL 03/06/2015 Comp Metabolic Xmj415 Creat 1.0 mg/dL 03/06/2015 Comp Metabolic Xuu353 eGFR 75 ml/min/1.73m2 03/06/2015 Comp Metabolic Tmv295 BUN 17 mg/dL 03/06/2015 Comp Metabolic Xzd904 B/C Ratio 16.7 Ratio 03/06/2015 Comp Metabolic Vdv354 CALCIUM 9.2 mg/dL 03/06/2015 Comp Metabolic Tca181 ALK PHOS 75 U/L 03/06/2015 Comp Metabolic Ihj699 AST(SGOT) 17 U/L 03/06/2015 Comp Metabolic Twd346 ALT(SGPT) 16 U/L 03/06/2015 Comp Metabolic Foc392 BILI T 0.8 mg/dL 03/06/2015 Comp Metabolic Xcx945 ALBUMIN 4.0 g/dL 03/06/2015 Comp Metabolic Ldu054 TPRO 6.3 g/dL 03/06/2015 Comp Metabolic Hui519 GLOB 2.3 g/dL 03/06/2015 Comp Metabolic Nbb581 A/G Ratio 1.7 Ratio 03/06/2015 Comp Metabolic Dnb793 Osmo 279 mOsmo 03/06/2015 Cbc With Differential Ord2 WBC 8.4 [...] With Differential Ord2 RDW 14.5 % 03/06/2015 Tsh Ord6 hTSH II 0.98 uIU/mL 03/06/2015 %Hba1C Jvh010 % HbA1c 79596-9 6.7 % 03/06/2015 %Hba1C Bnr110 Gluc Ave 146 mg/dL 03/06/2015 Lipid Ord30 CHOL 137 mg/dL 03/06/2015 Lipid Ord30 HDL 48.0 mg/dl 03/06/2015 Lipid Ord30 TRIG 121 mg/dL 03/06/2015 Lipid Ord30 LDL 65 mg/dL 03/06/2015 Lipid Ord30 C/HDL 2.9 Ratio 03/06/2015 Free T4 Tlt429 FREE T4 1.02 ng/dL 03/06/2015 Review of [...] 1995 Ears/Nose/Throat oral cavity/pharynx/larynx Overall: no masses 08/27/2015 [...] retractions 08/27/2015 None Full Exam - General 1995 Neck inspection of neck Overall: normal size [...] Procedure Codes Date THER/PROPH/DIAG INJ SC/IM CPT-4: 81967 08/03/2017 TRIAMCINOLONE ACET INJ NOS CPT-4: J3301 08/03/2017 ROCEPHIN, PER 250 MG CPT-4: J0696 08/03/2017 TRIAMCINOLONE ACET INJ NOS CPT-4: J3301 04/08/2017 ADMIN INFLUENZA VIRUS VAC CPT-4: G0008 04/01/2017 FLU VACC PRSV FREE INC ANTIG CPT-4: 11121 04/01/2017 TRIAMCINOLONE ACET INJ NOS CPT-4: J3301 05/19/2016 THER/PROPH/DIAG INJ SC/IM CPT-4: 32937 05/12/2016 TRIAMCINOLONE ACET INJ NOS CPT-4: J3301 05/12/2016 ADMIN PNEUMOCOCCAL VACCINE SNOMED CT: 65776501 CPT-4: G0009 05/05/2016 Pneumococcal Polysaccharide Vaccine, 23-Valent, Ad Formatting Model/CDA Sections, Assigned to/Otilia Ramires CPT-4: 42983Dnrecsz 05/05/2016 ADMIN INFLUENZA VIRUS VAC CPT-4: G0008 04/24/2016 FLU VACC 4 YA 3 YRS PLUS IM SNOMED CT: 82684480 CPT-4: 63582 04/24/2016 Vital Signs Date Vital 08/03/2017 Blood Pressure 1: 126/64 Code : 8480-6 BMI: 27.0 Code : 32353-8 Heart Rate 1 : 92 bpm Height: 6' SpO2: 94% Temperature: 37.4 (C) / 99.3 (F) Weight: 199 lbs 07/05/2017 Blood Pressure 1: 134/66 Code : 8480-6 BMI: 27.1 Code : 99352-0 Heart Rate 1 : 72 bpm Height: 6' SpO2: 96% Weight: 200 lbs 04/23/2017 Blood Pressure 1: 130/72 Code : 8480-6 BMI: 25.9 Code : 77950-1 Heart Rate 1 : 56 bpm Height: 6' SpO2: 97% Weight: 191 lbs 04/08/2017 Blood Pressure 1: 116/64 Code : 8480-6 BMI: 25.9 Code : 76612-8 Heart Rate 1 : 71 bpm Height: 6' SpO2: 97% Weight: 191 lbs 01/21/2017 Blood Pressure 1: 132/74 Code : 8480-6 BMI: 26.0 Code : 31484-5 Heart Rate 1 : 54 bpm Height: 6' SpO2: 94% Weight: 192 lbs 10/19/2016 Blood Pressure 1: 13264 Code : 8480-6 BMI: 27.7 Code : 24510-3 Heart Rate 1 : 77 bpm Height: 6' SpO2: 98% Weight: 204 lbs 07/23/2016 Blood Pressure 1: 130/62 Code : 8480-6 BMI: 27.8 Code : 38561-5 Heart Rate 1 : 95 bpm Height: 6' SpO2: 97% Weight: 205 lbs 05/19/2016 Blood Pressure 1: 118/70 Code : 8480-6 BMI: 27.9 Code : 47041-8 Heart Rate 1 : 76 bpm Height: 6' SpO2: 97% Weight: 206 lbs 04/21/2016 Blood Pressure 1: 130/70 Code : 8480-6 BMI: 27.9 Code : 77385-0 Heart Rate 1 : 76 bpm Height: 6' SpO2: 96% Weight: 206 lbs 03/26/2016 Blood Pressure 1: 130/78 Code : 8480-6 BMI: 27.7 Code : 53816-5 Heart Rate 1 : 61 bpm Height: 6' SpO2: 98% Weight: 204 lbs 01/27/2016 Blood Pressure 1: 124/80 Code : 8480-6 BMI: 27.5 Code : 26164-1 Heart Rate 1 : 78 bpm Height: 6' SpO2: 96% Weight: 203 lbs 10/28/2015 Blood Pressure 1: 138/78 Code : 8480-6 BMI: 27.7 Code : 51414-0 Heart Rate 1 : 76 bpm Height: 6' SpO2: 98% Weight: 204 lbs 08/27/2015 Blood Pressure 1: 128/56 Code : 8480-6 BMI: 27.4 Code : 84167-8 Heart Rate 1 : 49 bpm Height: 6' SpO2: 98% Weight: 202 lbs 06/06/2015 Blood Pressure 1: 128/62 Code : 8480-6 BMI: 26.0 Code : 53638-4 Heart Rate 1 : 80 bpm Height: 6' SpO2: 98% Weight: 192 lbs 04/30/2015 Blood Pressure 1: 138/64 Code : 8480-6 BMI: 19.2 Code : 04456-9 Heart Rate 1 : 71 bpm Height: 6' SpO2: 94% Weight: 141 lbs 8 oz 04/23/2015 Blood Pressure 1: 128/64 Code : 8480-6 BMI: 25.6 Code : 93509-3 Heart Rate 1 : 66 bpm Height: 6' SpO2: 98% Weight: 189 lbs 03/04/2015 Blood Pressure 1: 132/50 Code : 8480-6 BMI: 25.8 Code : 17356-1 Heart Rate 1 : 63 bpm Height: 6' SpO2: 97% Weight: 190 lbs 12/04/2014 Blood Pressure 1: 112/68 Code : 8480-6 BMI: 26.9 Code : 32003-8 Heart Rate 1 : 68 bpm Height: [...] data Encounters Encounter Performer Location Codes Date ([id number]) 82934 EST. PATIENT, LEVEL III Diagnosis: Cough[ICD10: R05] Diagnosis: Acute bronchitis due to other specified organisms[ICD10: J20.8] [facility] CPT-4: 90190 08/03/2017 ([id number]) 32654 EST. PATIENT, LEVEL III Diagnosis: Essential (primary) hypertension[ICD10: I10] Shalini Iyer MD, [facility] CPT-4: 43056 07/05/2017 ([id number]) 30111 EST. PATIENT, LEVEL IV Diagnosis: Essential (primary) hypertension[ICD10: I10] Diagnosis: Type 2 diabetes mellitus without complications[ICD10: E11.9] Diagnosis: Hypothyroidism, unspecified[ICD10: E03.9] Shalini Iyer MD, [facility] CPT-4: 17421 04/23/2017 ([id number]) 94878 EST. PATIENT, LEVEL III Diagnosis: Other allergic rhinitis[ICD10: J30.89] Shalini Iyer MD, [facility] CPT-4: 84135 04/08/2017 ([id number]) 33754 EST. PATIENT, LEVEL IV Diagnosis: Type 2 diabetes mellitus without complications[ICD10: E11.9] Diagnosis: Essential (primary) hypertension[ICD10: I10] Diagnosis: Hypothyroidism, unspecified[ICD10: E03.9] Diagnosis: Allergic rhinitis due to pollen[ICD10: J30.1] Shalini Iyer MD, [facility] CPT-4: 86943 01/21/2017 ([id number]) 91902 EST. PATIENT, LEVEL IV Diagnosis: Essential (primary) hypertension[ICD10: I10] Diagnosis: Mixed hyperlipidemia[ICD10: E78.2] Diagnosis: Hypothyroidism, unspecified[ICD10: E03.9] Diagnosis: Pain in left knee[ICD10: M25.562] Diagnosis: Type 2 diabetes mellitus without complications[ICD10: E11.9] Shalini Iyer MD, [facility] CPT-4: 93185 10/19/2016 ([id number]) 25916 EST. PATIENT, LEVEL IV Diagnosis: Essential (primary) hypertension[ICD10: I10] Diagnosis: Type 2 diabetes mellitus without complications[ICD10: E11.9] Diagnosis: Hypothyroidism, unspecified[ICD10: E03.9] Diagnosis: Mixed hyperlipidemia[ICD10: E78.2] Shalini Iyer MD, [facility] CPT-4: 57813 07/23/2016 ([id number]) 33766 EST. PATIENT, LEVEL III Diagnosis: Acute recurrent maxillary sinusitis[ICD10: J01.01] Shalini Iyer MD, [facility] CPT-4: 64829 05/19/2016 ([id number]) 32178 EST. PATIENT, LEVEL III Diagnosis: Type 2 diabetes mellitus without complications[ICD10: E11.9] Diagnosis: Essential (primary) hypertension[ICD10: I10] Diagnosis: Allergic rhinitis due to pollen[ICD10: J30.1] Shalini Iyer MD, [facility] CPT-4: 24408 04/21/2016 ([id number]) 24473 EST. PATIENT, LEVEL III Diagnosis: Pain in left knee[ICD10: M25.562] Diagnosis: Localized edema[ICD10: R60.0] Shalini Iyer MD, [facility] CPT-4: 22037 03/26/2016 ([id number]) 89331 EST. PATIENT, LEVEL IV Diagnosis: Essential (primary) hypertension[ICD10: I10] Diagnosis: Type 2 diabetes mellitus without complications[ICD10: E11.9] Diagnosis: Pain in right shoulder[ICD10: M25.511] Shalini Iyer MD, [facility] CPT-4: 52780 01/27/2016 ([id number]) 48861 EST. PATIENT, LEVEL IV Diagnosis: Essential (primary) hypertension[ICD10: I10] Diagnosis: Allergic rhinitis due to pollen[ICD10: J30.1] Diagnosis: Type 2 diabetes mellitus without complications[ICD10: E11.9] Diagnosis: Hypothyroidism, unspecified[ICD10: E03.9] Shalini Iyer MD, [facility] CPT-4: 49549 10/28/2015 ([id number]) 91776 EST. PATIENT, LEVEL IV Diagnosis: Essential (primary) hypertension[ICD10: I10] Diagnosis: Type 2 diabetes mellitus without complications[ICD10: E11.9] Diagnosis: Hypothyroidism, unspecified[ICD10: E03.9] Diagnosis: Lichen planus, unspecified[ICD10: L43.9] Shalini Iyer MD, [facility] CPT-4: 07701 08/27/2015 ([id number]) 85831 EST. PATIENT, LEVEL III Diagnosis: Cervical disc disorder with radiculopathy, unspecified cervical region[ICD10: M50.10] Diagnosis: Type 2 diabetes mellitus without complications[ICD10: E11.9] Diagnosis: Essential (primary) hypertension[ICD10: I10] Shalini Iyer MD, [facility] CPT-4: 33827 06/06/2015 ([id number]) 18787 EST. PATIENT, LEVEL III Diagnosis: Cervicalgia[ICD10: M54.2] Shalini Iyer MD, [facility] CPT-4: 86888 04/30/2015 ([id number]) 22457 EST. PATIENT, LEVEL III Diagnosis: Essential (primary) hypertension[ICD10: I10] Diagnosis: Type 2 diabetes mellitus without complications[ICD10: E11.9] Diagnosis: Primary osteoarthritis, unspecified site[ICD10: M19.91] Shalini Iyer MD, [facility] CPT-4: 80795 04/23/2015 ([id number]) 43990 EST. PATIENT, LEVEL IV Diagnosis: ESSENTIAL HYPERTENSION[ICD9: 401.9] Diagnosis: DIABETES TYPE II[ICD9: 250.00] Diagnosis: Osteoarthritis[ICD9: 715.90] Shalini Iyer MD, [facility] CPT-4: 00564 03/04/2015 ([id number]) OFFICE VISIT, NEW - LEVEL 4 Diagnosis: ESSENTIAL HYPERTENSION[ICD9: 401.9] Diagnosis: Hypothyroidism[ICD9: 244.9] Diagnosis: DIABETES TYPE II[ICD9: 250.00] Diagnosis: ACTINIC KERATOSIS[ICD9: 702.0] Shalini Iyer MD, [facility] CPT-4: 59935 12/04/2014 Plan of Care Planned Activity Notes Codes Status Date Appointment: [facility] [place] ([facility] min[facility] Moderate 08/03/2017 Patient Education: Patient Medication Summary Completed 08/03/2017 Appointment: [phone] [place] (30 min) Complex 07/05/2017 Patient Education: Patient Medication Summary Completed 07/05/2017 Patient Education: Patient Medication Summary Completed 04/30/2017 Care Plan: %Hba1C LOINC : 45870-6 Pending 04/30/2017 Appointment: Shalini Mitchell WPtel: [phone] [phone] [place] (30 min) Complex 04/23/2017 Patient Education: Patient Medication Summary Completed 04/23/2017 Appointment: Shalini Mitchell WPtel: [phone] [place] (15 min) Moderate 04/08/2017 Patient Education: Patient Medication Summary Completed 04/08/2017 Appointment: Nurse Visit 04/02/2017 Appointment: Injection 04/01/2017 Patient Education: Patient Medication Summary Completed 04/01/2017 Appointment: Shalini Mitchell WPtel: [phone] [place] (15 min) Moderate 01/21/2017 Patient Education: Patient Medication Summary Completed 01/21/2017 Appointment: Shalini Mitchell WPtel: [phone] [place] (15 min) Moderate 01/18/2017 Appointment: Shalini Mitchell WPtel: [phone] [place] (30 min) Complex 10/19/2016 Patient Education: Patient Medication Summary Completed 10/19/2016 Appointment: Shalini Micthell WPtel: [phone] [place] (30 min) Complex 07/23/2016 Patient Education: Patient Medication Summary Completed 07/23/2016 Appointment: Shalini Mitchell WPtel: [phone] [place] (15 min) Moderate 05/19/2016 Patient Education: Patient Medication Summary Completed 05/19/2016 Appointment: Injection 05/12/2016 Patient Education: Patient Medication Summary Completed 05/12/2016 Appointment: Injection 05/05/2016 Patient Education: Patient Medication Summary Completed 05/05/2016 Appointment: Shalini Mitchell WPtel: [address] [place] [phone] [place] (30 min) Complex 05/01/2016 Appointment: Injection 04/24/2016 Patient Education: Patient Medication Summary Completed 04/24/2016 Appointment: [facility] [phone] [phone] [place] (30 min) Complex 04/21/2016 Patient Education: Patient Medication Summary Completed 04/21/2016 Appointment: [phone] [place] (15 min) Moderate 03/26/2016 Patient Education: Patient [...] Care Plan: COMPLETE CBC AUTOMATED LOINC : 72834-1 Ordered 12/04/2014 Instructions No Instructions
--- OUTSIDE RECORDS SUMMARY | 2018-04-26 12:22 | XMS REPORT | Continuity of Care Document ---
Author Author [facility] Address Unknown Phone Unavailable Allergies Active Description Code Type Severity Reaction Onset Reported/Identified Relationship to Patient Clinical Status Yes No Known Drug Allergies [id number] Drug Allergy Unknown N/A 10/09/2010 Medications There is no data. Problems Date Dx Coded Attending Type Code Diagnosis Diagnosed By 10/12/2014 TOY WING MD Ot 599.70 11/12/2014 TOY WING MD Ot 599.70 12/07/2014 TOY WING MD Ot 599.70 01/04/2015 LENORA LAN MD Ot 595.9 CYSTITIS NOS 01/04/2015 LENORA LAN MD Ot 596.0 BLADDER NECK OBSTRUCTION 01/04/2015 LENORA LAN MD Ot 599.70 HEMATURIA, UNSPECIFIED 01/04/2015 EDYTA MATIAS, LENORA Pedro Ot 600.00 HYPERTROPHY (BENIGN) OF PROSTATE W/O URI 01/04/2015 STAS DOBBINS CONTINUOUS ABSORPTION PROCESS OPERATOR Ot 244.9 HYPOTHYROIDISM NOS 01/04/2015 STAS DOBBINS CONTINUOUS ABSORPTION PROCESS OPERATOR Ot 250.00 DIAB STEFANI WO COMPL, TYPE II OR UNSPEC TY 01/04/2015 STAS DOBBINS CONTINUOUS ABSORPTION PROCESS OPERATOR Ot 599.70 HEMATURIA, UNSPECIFIED 01/04/2015 STAS DOBBINS CONTINUOUS ABSORPTION PROCESS OPERATOR Ot 788.20 RETENTION OF URINE NOS 01/04/2015 STAS DOBBINS CONTINUOUS ABSORPTION PROCESS OPERATOR Ot V45.89 POSTSURGICAL STATES NEC 01/23/2015 LENORA LAN MD Ot 599.70 01/23/2015 LENORA LAN MD Ot V72.81 01/23/2015 LENORA LAN MD Ot V74.8 01/24/2015 LENORA LAN MD Ot 599.70 01/24/2015 LENORA LAN MD Ot V72.81 01/24/2015 LENORA LAN MD Ot V74.8 04/30/2015 EDYTA MATIAS, LENORA A Ot 599.70 04/30/2015 EDYTA MATIAS, LENORA A Ot V72.81 04/30/2015 EDYTA MATIAS, LENORA A Ot V74.8 05/03/2015 EDYTA MATIAS, LENORA A Ot 599.70 05/03/2015 EDYTA MATIAS, LENORA A Ot V72.81 05/03/2015 EDYTA MATIAS, LENORA A Ot V74.8 05/03/2015 EDYTA MATIAS, LENORA A Ot D49.4 05/03/2015 EDYTA MATIAS, LENORA A Ot Z01.812 05/03/2015 EDYTA MATIAS, LENORA A Ot Z01.818 05/03/2015 ECHO KRUEGER MEAT APPRENTICE Ot M47.812 05/03/2015 EDYAT MATIAS, LENORA A Ot C67.9 MALIGNANT NEOPLASM OF BLADDER, UNSPECIFI 05/03/2015 EDYTA MATIAS, LENORA A Ot E11.9 TYPE 2 DIABETES MELLITUS WITHOUT COMPLIC 05/07/2015 ECHO KRUEGER MEAT APPRENTICE Ot M47.812 05/07/2015 ECHO KRUEGER MEAT APPRENTICE Ot M47.812 05/07/2015 EDYTA MATIAS, LENORA A Ot 599.70 05/07/2015 EDYTA MATIAS, LENORA A Ot V72.81 05/07/2015 EDYTA MATIAS, LENORA A Ot V74.8 05/07/2015 EDYTA MATIAS, LENORA A Ot D49.4 05/07/2015 EDYTA MATIAS, LENORA A Ot Z01.812 05/07/2015 EDYTA MATIAS, LENORA A Ot Z01.818 05/07/2015 ECHO KRUEGER MEAT APPRENTICE Ot M47.812 05/08/2015 ECHO KRUEGER MEAT APPRENTICE Ot M47.812 05/10/2015 ADOLFO MATIAS, NEETU A Ot M54.2 05/21/2015 EDYTA MATIAS, LENORA A Ot D49.4 05/21/2015 EDYTA MATIAS, LENORA A Ot Z01.812 05/21/2015 EDYTA MATIAS, LENORA A Ot Z01.818 05/30/2015 EDYTA MATIAS, LENORA A Ot D49.4 05/30/2015 EDYTA MATIAS, LENORA A Ot Z01.812 05/30/2015 EDYTA MATIAS, LENORA A Ot Z01.818 05/31/2015 ADOLFO MATIAS, NEETU A Ot M54.2 06/05/2015 ADOLFO MATIAS, NEETU A Ot M54.2 06/19/2015 BAIMA, MICHEAL L MEAT APPRENTICE Ot E78.5 06/19/2015 BAIMA, MICHEAL L MEAT APPRENTICE Ot I10 06/19/2015 BAIMA, MICHEAL L MEAT APPRENTICE Ot I25.10 06/19/2015 BAIMA, MICHEAL L MEAT APPRENTICE Ot I73.9 06/19/2015 BAIMA, MICHEAL L MEAT APPRENTICE Ot M79.89 06/20/2015 BAIMA, MICHEAL L MEAT APPRENTICE Ot E78.5 06/20/2015 BAIMA, MICHEAL L MEAT APPRENTICE Ot I10 06/20/2015 BAIMA, MICHEAL L MEAT APPRENTICE Ot I25.10 06/20/2015 BAIMA, MICHEAL L MEAT APPRENTICE Ot I73.9 06/20/2015 BAIMA, MICHEAL L MEAT APPRENTICE Ot M79.89 09/17/2015 EDYTA MATIAS, LENORA A Ot 599.70 09/17/2015 EDYTA MATIAS, LENORA A Ot V72.81 09/17/2015 EDYTA MATIAS, LENORA A Ot V74.8 09/17/2015 EDYTA MATIAS, LENORA A Ot D49.4 09/17/2015 EDYTA MATIAS, LENORA A Ot Z01.812 09/17/2015 EDYTA MATIAS, LENORA A Ot Z01.818 09/17/2015 ECHO KRUEGER MEAT APPRENTICE Ot M47.812 09/17/2015 ADOLFO MATIAS, NEETU A Ot M54.2 09/17/2015 BAIMA, MICHEAL L MEAT APPRENTICE Ot E78.5 09/17/2015 BAIMA, MICHEAL L MEAT APPRENTICE Ot I10 09/17/2015 BAIMA, MICHEAL L MEAT APPRENTICE Ot I25.10 09/17/2015 BAIMA, MICHEAL L MEAT APPRENTICE Ot I73.9 09/17/2015 BAIMA, MICHEAL L MEAT APPRENTICE Ot M79.89 09/17/2015 EDYTA MATIAS, LENORA A Ot C67.9 09/17/2015 EDYTA MATIAS, LENORA A Ot N42.0 09/17/2015 EDYTA MATIAS, LENORA A Ot R97.2 09/17/2015 EDYTA MATIAS, LENORA A Ot Z01.812 09/17/2015 EDYTA MATIAS, LENORA A Ot Z11.2 09/17/2015 EDYTA MATIAS, LENORA Pedro Ot C67.9 MALIGNANT NEOPLASM OF BLADDER, UNSPECIFI 09/17/2015 EDYTA MATIAS, LENORA A Ot Z79.899 OTHER REPAIR DEPARTMENT MANAGER (CURRENT) DRUG THERAPY 10/03/2015 EDYTA MATIAS, LENORA A Ot C67.9 10/03/2015 EDYTA MATIAS, LENORA A Ot N42.0 10/03/2015 EDYTA MATIAS, LENORA A Ot R97.2 10/03/2015 EDYTA MATIAS, LENORA A Ot Z01.812 10/03/2015 EDYTA MATIAS, LENORA A Ot Z11.2 01/16/2016 TATI WORTHINGTON MD Ot R07.89 OTHER CHEST PAIN 01/17/2016 TATI WORTHINGTON MD Ot R07.89 OTHER CHEST PAIN 06/18/2016 STAS DOBBINS APRN Ot 244.9 HYPOTHYROIDISM NOS 06/18/2016 STAS DOBBINS CONTINUOUS ABSORPTION PROCESS OPERATOR Ot 250.00 DIAB STEFANI WO COMPL, TYPE II OR UNSPEC TY 06/18/2016 STAS DOBBINS CONTINUOUS ABSORPTION PROCESS OPERATOR Ot 599.70 HEMATURIA, UNSPECIFIED 06/18/2016 STAS DOBBINS CONTINUOUS ABSORPTION PROCESS OPERATOR Ot 788.20 RETENTION OF URINE NOS 06/18/2016 STAS DOBBINS APRN Ot V45.89 POSTSURGICAL STATES NEC 08/19/2016 STAS DOBBINS APRN Ot 244.9 HYPOTHYROIDISM NOS 08/19/2016 STAS DOBBINS CONTINUOUS ABSORPTION PROCESS OPERATOR Ot 250.00 DIAB STEFANI WO COMPL, TYPE II OR UNSPEC TY 08/19/2016 STAS DOBBINS CONTINUOUS ABSORPTION PROCESS OPERATOR Ot 599.70 HEMATURIA, UNSPECIFIED 08/19/2016 STAS DOBBINS CONTINUOUS ABSORPTION PROCESS OPERATOR Ot 788.20 RETENTION OF URINE NOS 08/19/2016 STAS DOBBINS APRN Ot V45.89 POSTSURGICAL STATES NEC 12/17/2016 STAS DOBBINS APRN Ot 244.9 HYPOTHYROIDISM NOS 12/17/2016 STAS DOBBINS CONTINUOUS ABSORPTION PROCESS OPERATOR Ot 250.00 DIAB STEFANI WO COMPL, TYPE II OR UNSPEC TY 12/17/2016 STAS DOBBINS CONTINUOUS ABSORPTION PROCESS OPERATOR Ot 599.70 HEMATURIA, UNSPECIFIED 12/17/2016 STAS DOBBINS CONTINUOUS ABSORPTION PROCESS OPERATOR Ot 788.20 RETENTION OF URINE NOS 12/17/2016 STAS DOBBINS APRN Ot V45.89 POSTSURGICAL STATES NEC 03/19/2017 STAS DOBBINS CONTINUOUS ABSORPTION PROCESS OPERATOR Ot 244.9 HYPOTHYROIDISM NOS 03/19/2017 STAS DOBBINS CONTINUOUS ABSORPTION PROCESS OPERATOR Ot 250.00 DIAB STEFANI WO COMPL, TYPE II OR UNSPEC TY 03/19/2017 STAS DOBBINS CONTINUOUS ABSORPTION PROCESS OPERATOR Ot 599.70 HEMATURIA, UNSPECIFIED 03/19/2017 STAS DOBBINS CONTINUOUS ABSORPTION PROCESS OPERATOR Ot 788.20 RETENTION OF URINE NOS 03/19/2017 STAS DOBBINS CONTINUOUS ABSORPTION PROCESS OPERATOR Ot V45.89 POSTSURGICAL STATES NEC 05/25/2017 EDYTA MATIAS, LENORA Pedro Ot 599.70 HEMATURIA, UNSPECIFIED 05/25/2017 LENORA LAN MD Ot V72.81 [id number] CARDIOVASCULAR 05/25/2017 LENORA LAN MD Ot V74.8 SCREEN-BACTERIAL DIS NEC 05/25/2017 LENORA LAN MD Ot D49.4 NEOPLASM OF UNSPECIFIED BEHAVIOR OF BLAD 05/25/2017 LENORA LAN MD Ot Z01.812 ENCOUNTER FOR PREPROCEDURAL LABORATORY E 05/25/2017 LENORA LAN MD Ot Z01.818 ENCOUNTER FOR OTHER PREPROCEDURAL EXAMIN 05/25/2017 ECHO KRUEGER Ot M47.812 SPONDYLOSIS W/O MYELOPATHY OR RADICULOPA 05/25/2017 ADOLFO MATIAS, NEETU Pedro Ot M54.2 CERVICALGIA 05/25/2017 MICHEAL STEIN Ot E78.5 HYPERLIPIDEMIA, UNSPECIFIED 05/25/2017 MICHEAL STEIN MEAT APPRENTICE Ot I10 ESSENTIAL (PRIMARY) HYPERTENSION 05/25/2017 MICHEAL STEINP Ot I25.10 ATHSCL HEART DISEASE OF [place] CORONARY 05/25/2017 MICHEAL STEIN MEAT APPRENTICE Ot I73.9 PERIPHERAL VASCULAR DISEASE, UNSPECIFIED 05/25/2017 BAIMA, MICHEAL L MEAT APPRENTICE Ot M79.89 OTHER SPECIFIED SOFT TISSUE DISORDERS 05/25/2017 LENORA LAN MD Ot C67.9 MALIGNANT NEOPLASM OF BLADDER, UNSPECIFI 05/25/2017 LENORA LAN MD Ot N42.0 CALCULUS OF PROSTATE 05/25/2017 LENORA LAN MD Ot R97.2 ELEVATED PROSTATE SPECIFIC ANTIGEN [PSA] 05/25/2017 LENORA LAN MD Ot Z01.812 ENCOUNTER FOR PREPROCEDURAL LABORATORY E 05/25/2017 LENORA LAN MD, Ot Z11.2 ENCOUNTER FOR SCREENING FOR OTHER BACTER 05/25/2017 SILVER MATIAS FACC, SAV FACP CCDS Ot C67.9 MALIGNANT NEOPLASM OF BLADDER, UNSPECIFI 05/25/2017 SILVER MATIAS FACC, SAV FACP CCDS Ot E03.9 HYPOTHYROIDISM, UNSPECIFIED 05/25/2017 SILVER MATIAS FACC, SAV FACP CCDS Ot E11.9 TYPE 2 DIABETES MELLITUS WITHOUT COMPLIC 05/25/2017 SAV SHEPPARD MD, FACC FACP CCDS Ot E78.5 HYPERLIPIDEMIA, UNSPECIFIED 05/25/2017 SILVER MATIAS FACC, ALI FACP CCDS Ot I10 ESSENTIAL (PRIMARY) HYPERTENSION 05/25/2017 SAV SHEPPARD MD, FACC FACP CCDS Ot I25.10 ATHSCL HEART DISEASE OF [place] CORONARY 05/25/2017 SILVER MATIAS FACC, ALI FACP CCDS Ot I25.810 ATHEROSCLEROSIS OF CABG W/O ANGINA PECTO 05/25/2017 SILVER MATIAS FACC, ALI FACP CCDS Ot I65.23 OCCLUSION AND STENOSIS OF BILATERAL LOZA 05/25/2017 SILVER MATIAS FACC, SAV FACP CCDS Ot I70.1 ATHEROSCLEROSIS OF RENAL ARTERY 05/25/2017 SILVER MATIAS FACC, ALI FACP CCDS Ot I71.4 ABDOMINAL AORTIC ANEURYSM, WITHOUT RUPTU 05/25/2017 SILVER MATIAS FACC ALI FACP CCDS Ot I73.9 PERIPHERAL VASCULAR DISEASE, UNSPECIFIED 05/25/2017 SILVER MATIAS FACC ALI FACP CCDS Ot K21.9 GASTRO-ESOPHAGEAL REFLUX DISEASE WITHOUT 05/25/2017 SILVER MATIAS FACC ALI FACP CCDS Ot R97.20 ELEVATED PROSTATE SPECIFIC ANTIGEN [PSA] 05/25/2017 SAV SHEPPARD MD, FACC FACP CCDS Ot Z79.82 REPAIR DEPARTMENT MANAGER (CURRENT) USE OF ASPIRIN 05/25/2017 SAV SHEPPARD MD, FACC FACP CCDS Ot Z79.899 OTHER FPC (CURRENT) DRUG THERAPY 05/25/2017 SAV SHEPPARD MD, FACC FACP CCDS Ot Z87.891 PERSONAL HISTORY OF NICOTINE DEPENDENCE 05/25/2017 SILVER MATIAS FACC ALI FACP CCDS Ot Z95.1 PRESENCE OF AORTOCORONARY BYPASS GRAFT 06/30/2017 SILVER MATIAS FACC, SAV FACP CCDS Ot C67.9 MALIGNANT NEOPLASM OF BLADDER, UNSPECIFI 06/30/2017 SAV SHEPPARD MD, FACC FACP CCDS Ot E03.9 HYPOTHYROIDISM, UNSPECIFIED 06/30/2017 SAV SHEPPARD MD, FACC FACP CCDS Ot E11.9 TYPE 2 DIABETES MELLITUS WITHOUT COMPLIC 06/30/2017 SAV SHEPPARD MD, FACC FACP CCDS Ot E78.5 HYPERLIPIDEMIA, UNSPECIFIED 06/30/2017 SILVER MATIAS FACC, SAV FACP CCDS Ot I10 ESSENTIAL (PRIMARY) HYPERTENSION 06/30/2017 SAV SHEPPARD MD, FACC FACP CCDS Ot I25.10 ATHSCL HEART DISEASE OF [place] CORONARY 06/30/2017 SILVER MATIAS FACC ALI FACP CCDS Ot I25.810 ATHEROSCLEROSIS OF CABG W/O ANGINA PECTO 06/30/2017 SAV SHEPPARD MD, FACC FACP CCDS Ot I65.23 OCCLUSION AND STENOSIS OF BILATERAL [place] 06/30/2017 SILVER MATIAS FACC ALI FACP CCDS Ot I70.1 ATHEROSCLEROSIS OF RENAL ARTERY 06/30/2017 SAV SHEPPARD MD, FACC FACP CCDS Ot I71.4 ABDOMINAL AORTIC ANEURYSM, WITHOUT RUPTU 06/30/2017 SAV SHEPPARD MD, FACC FACP CCDS Ot I73.9 PERIPHERAL VASCULAR DISEASE, UNSPECIFIED 06/30/2017 SAV SHEPPARD MD, FACC FACP CCDS Ot K21.9 GASTRO-ESOPHAGEAL REFLUX DISEASE WITHOUT 06/30/2017 SAV SHEPPARD MD, FACC FACP CCDS Ot R97.20 ELEVATED PROSTATE SPECIFIC ANTIGEN [PSA] 06/30/2017 SILVER MATIAS FACC ALI FACP CCDS Ot Z79.82 REPAIR DEPARTMENT MANAGER (CURRENT) USE OF ASPIRIN 06/30/2017 SILVER MATIAS FACC ALI FACP CCDS Ot Z79.899 OTHER FPC (CURRENT) DRUG THERAPY 06/30/[address] [facility], SAV [facility] CCDS Ot Z87.891 PERSONAL HISTORY OF NICOTINE DEPENDENCE 06/30/[address] [facility], ALI [facility] CCDS Ot Z95.1 PRESENCE OF AORTOCORONARY BYPASS GRAFT 03/05/2018 LENORA LAN MD Ot 599.70 HEMATURIA, UNSPECIFIED 03/05/2018 LENORA LAN MD Ot V72.81 BCPB-RPE-FPSJNWPEO CARDIOVASCULAR 03/05/2018 LENORA LAN MD Ot V74.8 SCREEN-BACTERIAL DIS NEC 03/05/2018 LENORA LAN MD Ot D49.4 NEOPLASM OF UNSPECIFIED BEHAVIOR OF BLAD 03/05/2018 LENORA LAN MD Ot Z01.812 ENCOUNTER FOR PREPROCEDURAL LABORATORY E 03/05/2018 LENORA LAN MD, Ot Z01.818 ENCOUNTER FOR OTHER PREPROCEDURAL EXAMIN 03/05/2018 ECHO KRUEGER MEAT APPRENTICE Ot M47.812 SPONDYLOSIS W/O MYELOPATHY OR RADICULOPA 03/05/2018 ADOLFO MATIAS, NEETU Pedro Ot M54.2 CERVICALGIA 03/05/2018 MICHEAL STEIN MEAT APPRENTICE Ot E78.5 HYPERLIPIDEMIA, UNSPECIFIED 03/05/2018 MICHEAL STEIN MEAT APPRENTICE Ot I10 ESSENTIAL (PRIMARY) HYPERTENSION 03/05/2018 MICHEAL STEIN MEAT APPRENTICE Ot I25.10 ATHSCL HEART DISEASE OF [place] CORONARY 03/05/2018 MICHEAL STEIN MEAT APPRENTICE Ot I73.9 PERIPHERAL VASCULAR DISEASE, UNSPECIFIED 03/05/2018 MICHEAL STEIN MEAT APPRENTICE Ot M79.89 OTHER SPECIFIED SOFT TISSUE DISORDERS 03/05/2018 LENORA ALN MD Ot C67.9 MALIGNANT NEOPLASM OF BLAD[place], UNSPECIFI 03/05/2018 LENORA LAN MD Ot N42.0 CALCULUS OF PROSTATE 03/05/2018 LENORA LAN MD Ot R97.2 ELEVATED PROSTATE SPECIFIC ANTIGEN [PSA] 03/05/2018 LENORA LAN MD, Ot Z01.812 ENCOUNTER FOR PREPROCEDURAL LABORATORY E 03/05/2018 EDYTA MD, LENORA A Ot Z11.2 ENCOUNTER FOR SCREENING FOR OTHER BACTER 03/05/2018 Ot M43.16 SPONDYLOLISTHESIS, LUMBAR REGION 03/05/2018 Ot M47.816 SPONDYLOSIS W/O MYELOPATHY OR RADICULOPA 03/05/2018 Ot S22.080A WEDGE COMPRESSION FRACTURE OF T11-T12 VE 03/07/2018 Ot M43.16 SPONDYLOLISTHESIS, LUMBAR REGION 03/07/2018 Ot M47.816 SPONDYLOSIS W/O MYELOPATHY OR RADICULOPA 03/07/2018 Ot S22.080A WEDGE COMPRESSION FRACTURE OF T11-T12 VE 03/07/2018 ECHO KRUEGER [facility] Ot 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 03/07/2018 ECHO KRUEGER [facility] Ot S22.080A WEDGE COMPRESSION FRACTURE OF T11-T12 VE 03/11/2018 ECHO KRUEGER MEAT APPRENTICE Ot 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 03/11/2018 ECHO KRUEGER [facility] Ot S22.080A WEDGE COMPRESSION FRACTURE OF T11-T12 VE 03/14/2018 ALBARO ORTIZ MD Ot M25.78 OSTEOPHYTE, VERTEBRAE 03/14/2018 ALBARO ORTIZ MD Ot M99.73 CONN TISS AND DISC STENOS OF INTVRT FORA 03/14/2018 ALBARO ORTIZ MD Ot S22.080A WEDGE COMPRESSION FRACTURE OF T11-T12 VE 03/14/2018 ALBARO ORTIZ MD Ot Z91.81 HISTORY OF FALLING 03/14/2018 ALBARO ORTIZ MD Ot Z98.890 OTHER SPECIFIED POSTPROCEDURAL STATES 03/16/2018 ECHO KRUEGERP Ot R22.42 LOCALIZED SWELLING, MASS AND LUMP, LEFT 03/18/2018 ALBARO ORTIZ MD Ot M25.78 OSTEOPHYTE, VERTEBRAE 03/18/2018 ALBARO ORTIZ MD Ot M99.73 CONN TISS AND DISC STENOS OF INTVRT FORA 03/18/2018 ALBARO ORTIZ MD Ot S22.080A WEDGE COMPRESSION FRACTURE OF T11-T12 VE 03/18/2018 ALBARO ORTIZ MD Ot Z91.81 HISTORY OF FALLING 03/18/2018 ALBARO ORTIZ MD A Ot Z98.890 OTHER SPECIFIED POSTPROCEDURAL STATES 03/18/2018 ALBARO ORTIZ MD Ot M25.78 OSTEOPHYTE, VERTEBRAE 03/18/2018 ALBARO ORTIZ MD A Ot M99.73 CONN TISS AND DISC STENOS OF INTVRT FORA 03/18/2018 ALBARO ORTIZ MD A Ot S22.080A WEDGE COMPRESSION FRACTURE OF T11-T12 VE 03/18/2018 ALBARO ORTIZ MD A Ot Z91.81 HISTORY OF FALLING 03/18/2018 ALBARO ORTIZ MD A Ot Z98.890 OTHER SPECIFIED POSTPROCEDURAL STATES 04/07/2018 ECHO KRUEGERP Ot 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 04/07/2018 ECHO KRUEGERP Ot S22.080A WEDGE COMPRESSION FRACTURE OF T11-T12 VE 04/07/2018 Ot M43.16 SPONDYLOLISTHESIS, LUMBAR REGION 04/07/2018 Ot M47.816 SPONDYLOSIS W/O MYELOPATHY OR RADICULOPA 04/07/2018 Ot S22.080A WEDGE COMPRESSION FRACTURE OF T11-T12 VE 04/08/2018 ALBARO ORTIZ MD Ot M25.78 OSTEOPHYTE, VERTEBRAE 04/08/2018 ALBARO ORTIZ MD A Ot M99.73 CONN TISS AND DISC STENOS OF INTVRT FORA 04/08/2018 ALBARO ORTIZ MD A Ot S22.080A WEDGE COMPRESSION FRACTURE OF T11-T12 VE 04/08/2018 ALBARO ORTIZ MD A Ot Z91.81 HISTORY OF FALLING 04/08/2018 ALBARO ORTIZ MD A Ot Z98.890 OTHER SPECIFIED POSTPROCEDURAL STATES 04/08/2018 ECHO KRUEGERP Ot R22.42 LOCALIZED SWELLING, MASS AND LUMP, LEFT 04/13/2018 ECHO KRUEGERP Ot 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 04/13/2018 ECHO KRUEGERP Ot S22.080A WEDGE COMPRESSION FRACTURE OF T11-T12 VE 04/13/2018 Ot M43.16 SPONDYLOLISTHESIS, LUMBAR REGION 04/13/2018 Ot M47.816 SPONDYLOSIS W/O MYELOPATHY OR RADICULOPA 04/13/2018 Ot S22.080A WEDGE COMPRESSION FRACTURE OF T11-T12 VE 04/13/2018 ALBARO ORTIZ MD Ot M25.78 OSTEOPHYTE, VERTEBRAE 04/13/2018 ALBARO ORTIZ MD Ot M99.73 CONN TISS AND DISC STENOS OF INTVRT FORA 04/13/2018 ALBARO ORTIZ MD, Ot S22.080A WEDGE COMPRESSION FRACTURE OF T11-T12 VE 04/13/2018 ALBARO ORTIZ MD Ot Z91.81 HISTORY OF FALLING 04/13/2018 ALBARO ORTIZ MD Ot Z98.890 OTHER SPECIFIED POSTPROCEDURAL STATES 04/13/2018 ECHO KRUEGER Ot R22.42 LOCALIZED SWELLING, MASS AND LUMP, LEFT Procedures There is no data. Results Test Result Range Automated blood complete blood count (hemogram) panel - 05/25/17 07:22 Blood leukocytes automated count (number/volume) 7.0 10*3/uL 4.3-11.0 Blood erythrocytes automated count (number/volume) 5.04 10*6/uL 4.35-5.85 Venous blood hemoglobin measurement (mass/volume) 14.7 g/dL 13.3-17.7 Blood hematocrit (volume fraction) 45 % 40-54 Automated erythrocyte mean corpuscular volume 89 [foz_us] 80-99 Automated erythrocyte mean corpuscular hemoglobin (mass per erythrocyte) 29 pg 25-34 Automated erythrocyte mean corpuscular hemoglobin concentration measurement ( mass/volume) 33 g/dL 32-36 Automated erythrocyte distribution width ratio 15.5 % 10.0-14.5 Automated blood platelet count (count/volume) 304 10*3/uL 130-400 Automated blood platelet mean volume measurement 9.6 [foz_us] 7.4-10.4 PT panel in platelet poor plasma by coagulation assay - 05/25/17 07:22 Prothrombin time (PT) in platelet poor plasma by coagulation assay 12.7 s 12.2-14.7 INR in platelet poor plasma or blood by coagulation assay 0.9 0.8-1.4 Activated partial thromboplastin time (aPTT) in platelet poor plasma bycoagulation assay - 05/25/17 07:22 Activated partial thromboplastin time (aPTT) in platelet poor plasma bycoagulation assay 23 s 24-35 Comprehensive metabolic panel - 05/25/17 07:22 Serum or plasma sodium measurement (moles/volume) 144 mmol/L 135-145 Serum or plasma potassium measurement (moles/volume) 4.2 mmol/L 3.6-5.0 Serum or plasma chloride measurement (moles/volume) 105 mmol/L 98-107 Carbon dioxide 28 mmol/L 21-32 Serum or plasma anion gap determination (moles/volume) 11 mmol/L 5-14 Serum or plasma urea nitrogen measurement (mass/volume) 21 mg/dL 7-18 Serum or plasma creatinine measurement (mass/volume) 1.07 mg/dL 0.60-1.30 Serum or plasma urea nitrogen/creatinine mass ratio 20 NRG Serum or plasma creatinine measurement with calculation of estimated glomerular filtration rate > NRG Serum or plasma glucose measurement (mass/volume) 126 mg/dL 70-105 Serum or plasma calcium measurement (mass/volume) 9.6 mg/dL 8.5-10.1 Serum or plasma total bilirubin measurement (mass/volume) 1.3 mg/dL 0.1-1.0 Serum or plasma alkaline phosphatase measurement (enzymatic activity/volume) 71 U/L 40-136 Serum or plasma aspartate aminotransferase measurement (enzymatic activity/ volume) 25 U/L 5-34 Serum or plasma alanine aminotransferase measurement (enzymatic activity/volume ) 28 U/L 0-55 Serum or plasma protein measurement (mass/volume) 7.2 g/dL 6.4-8.2 Serum or plasma albumin measurement (mass/volume) 4.2 g/dL 3.2-4.5 Lipid 1996 panel - 05/25/17 07:22 Serum or plasma triglyceride measurement (mass/volume) 59 mg/dL <150 Serum or plasma cholesterol measurement (mass/volume) 154 mg/dL < 200 Serum or plasma cholesterol in HDL measurement (mass/volume) 65 mg/ dL 40-60 Cholesterol in LDL [mass/volume] in serum or plasma by direct assay 81 mg/dL 1-129 Serum or plasma cholesterol in VLDL measurement (mass/volume) 12 mg/ dL 5-40 Methicillin resistant Staphylococcus aureus (MRSA) screening culture - 07:22 Methicillin resistant Staphylococcus aureus (MRSA) screening culture NEG NRG Complete urinalysis with reflex to culture - 04/26/18 10:35 Urine color determination YELLOW NRG Urine clarity determination CLEAR NRG Urine pH measurement by test strip 5 5-9 Specific gravity of urine by test strip 1.010 1.016- 1.022 Urine protein assay by test strip, semi-quantitative 1+ NEGATIVE Urine glucose detection by automated test strip 4+ NEGATIVE Erythrocytes detection in urine sediment by light microscopy 1+ NEGATIVE Urine ketones detection by automated test strip NEGATIVE NEGATIVE Urine nitrite detection by test strip NEGATIVE NEGATIVE Urine total bilirubin detection by test strip NEGATIVE NEGATIVE Urine urobilinogen measurement by automated test strip (mass/volume) NORMAL NORMAL Urine leukocyte esterase detection by dipstick 1+ NEGATIVE Automated urine sediment erythrocyte count by microscopy (number/high power field) NONE NRG Automated urine sediment leukocyte count by microscopy (number/high power field ) RARE NRG Bacteria detection in urine sediment by light microscopy NEGATIVE NRG Squamous epithelial cells detection in urine sediment by light microscopy NONE NRG Crystals detection in urine sediment by light microscopy NONE NRG Casts detection in urine sediment by light microscopy NONE NRG Mucus detection in urine sediment by light microscopy NEGATIVE NRG Complete urinalysis with reflex to culture NO NRG Complete blood count (CBC) with automated white blood cell (WBC) differential - 04/26/18 10:47 Blood leukocytes automated count (number/volume) 7.8 10*3/uL 4.3-11.0 Blood erythrocytes automated count (number/volume) 5.16 10*6/uL 4.35-5.85 Venous blood hemoglobin measurement (mass/volume) 14.5 g/dL 13.3-17.7 Blood hematocrit (volume fraction) 44 % 40-54 Automated erythrocyte mean corpuscular volume 86 [foz_us] 80-99 Automated erythrocyte mean corpuscular hemoglobin (mass per erythrocyte) 28 pg 25-34 Automated erythrocyte mean corpuscular hemoglobin concentration measurement ( mass/volume) 33 g/dL 32-36 Automated erythrocyte distribution width ratio 14.5 % 10.0-14.5 Automated blood platelet count (count/volume) 429 10*3/uL 130-400 Automated blood platelet mean volume measurement 9.5 [foz_us] 7.4-10.4 Automated blood neutrophils/100 leukocytes 79 % 42-75 Automated blood lymphocytes/100 leukocytes 11 % 12-44 Blood monocytes/100 leukocytes 8 % 0-12 Automated blood eosinophils/100 leukocytes 1 % 0-10 Automated blood basophils/100 leukocytes 0 % 0-10 Blood neutrophils automated count (number/volume) 6.2 10*3 1.8-7.8 Blood lymphocytes automated count (number/volume) 0.9 10*3 1.0-4.0 Blood monocytes automated count (number/volume) 0.7 10*3 0.0-1.0 Automated eosinophil count 0.1 10*3/uL 0.0-0.3 Automated blood basophil count (count/volume) 0.0 10*3/uL 0.0-0.1 Comprehensive metabolic panel - 04/26/18 10:47 Serum or plasma sodium measurement (moles/volume) 140 mmol/L 135-145 Serum or plasma potassium measurement (moles/volume) 4.2 mmol/L 3.6-5.0 Serum or plasma chloride measurement (moles/volume) 103 mmol/L 98-107 Carbon dioxide 26 mmol/L 21-32 Serum or plasma anion gap determination (moles/volume) 11 mmol/L 5-14 Serum or plasma urea nitrogen measurement (mass/volume) 20 mg/dL 7-18 Serum or plasma creatinine measurement (mass/volume) 1.01 mg/dL 0.60-1.30 Serum or plasma urea nitrogen/creatinine mass ratio 20 NRG Serum or plasma creatinine measurement with calculation of estimated glomerular filtration rate > NRG Serum or plasma glucose measurement (mass/volume) 127 mg/dL 70-105 Serum or plasma calcium measurement (mass/volume) 10.0 mg/dL 8.5-10.1 Serum or plasma total bilirubin measurement (mass/volume) 1.2 mg/dL 0.1-1.0 Serum or plasma alkaline phosphatase measurement (enzymatic activity/volume) 88 U/L 40-136 Serum or plasma aspartate aminotransferase measurement (enzymatic activity/ volume) 19 U/L 5-34 Serum or plasma alanine aminotransferase measurement (enzymatic activity/volume ) 18 U/L 0-55 Serum or plasma protein measurement (mass/volume) 7.7 g/dL 6.4-8.2 Serum or plasma albumin measurement (mass/volume) 4.4 g/dL 3.2-4.5 CALCIUM CORRECTED 9.7 mg/dL 8.5-10.1 Encounters ACCT No. Visit Date/Time Discharge Status Pt. Type Provider Facility Loc./Unit Complaint [id number] 05/10/2014 12:29:44 05/10/2014 23:59:59 CLS Outpatient Alex Fernandez [id number] 11/21/2013 11:27:29 Document Registration [id number] 04/20/2017 23:07:08 04/20/2017 23:59:59 CLS Outpatient [id number] 03/15/2018 12:17:00 03/15/2018 23:59:59 CLS Outpatient ECHO KRUEGER [facility] RAD LEFT LEG SWELLING [id number] 03/12/2018 11:34:00 03/12/2018 23:59:59 CLS Outpatient ALBARO ORTIZ MD [facility] RAD WEDGE COMPRESSION FRACTURE M54.5 [id number] 03/11/2018 09:17:00 03/11/2018 23:59:59 CLS Preadmit ALBARO ORTIZ MD [facility] RAD WEDGE COMPRESSION FRACTURE OF UNSPECIFIED THORACIC [id number] 03/05/2018 07:09:00 03/05/2018 23:59:59 CLS Outpatient ECHO KRUEGER [facility] RAD THORACIC PAIN, COMPRESSION FX T-11-T-12 [id number] 05/25/2017 06:55:00 05/25/2017 14:00:00 DIS Outpatient SILVER MATIAS FACCSAV FACP CCDS [facility] CATH STABLE ANGINA ;CAD;HTN;HL [id number] 01/16/2016 11:56:00 01/16/2016 14:04:00 DIS Emergency TATI WORTHINGTON MD [facility] ER CHEST PAIN [id number] 09/17/2015 07:28:00 09/17/2015 11:45:00 DIS Outpatient [facility] [id number] 09/11/2015 12:03:00 09/11/2015 23:59:59 CLS Outpatient LENORA LAN MD [facility] PREOP BLADDER CANCER [id number] 05/28/2015 07:28:00 05/28/2015 23:59:59 CLS Outpatient MICHEAL STEIN [facility] CARD CAD,HLP,HTN,PAD [id number] 05/07/2015 14:38:00 05/07/2015 23:59:59 CLS Outpatient NEETU MATA MD [facility] RAD CERVICAL PAIN RADIATING DOWN ARMS [id number] 05/03/2015 06:00:00 05/03/2015 10:10:00 DIS Outpatient LENORA LAN MD [facility] SDC BLADDER TUMOR [id number] 04/30/2015 10:25:00 04/30/2015 23:59:59 CLS Outpatient ECHO KRUEGER [facility] RAD NECK PAIN [id number] 04/30/2015 09:33:00 04/30/2015 23:59:59 CLS Outpatient LENORA LAN MD [facility] PREOP BLADDER TUMOR [id number] 01/04/2015 21:18:00 01/04/2015 22:24:00 DIS Emergency STAS DOBBINS APRN [facility] ER POST CYSTOSCOPY [id number] 01/04/2015 11:27:00 01/04/2015 14:40:00 DIS Outpatient LENORA LAN MD [facility] HEMATURIA [id number] 01/02/2015 09:16:00 01/02/2015 23:59:59 CLS Outpatient LENORA LAN MD [facility] PREOP HEMATURIA [id number] 10/10/2014 08:34:00 10/10/2014 23:59:59 CLS Outpatient TOY WING MD [facility] RAD [id number] 06/29/2013 07:32:00 06/29/2013 23:59:59 CLS Outpatient [id number] 06/27/2013 12:55:00 06/27/2013 23:59:59 CLS Outpatient [id number] 04/26/2018 11:32:00 ACT Emergency CLIFFORD ZIMMER MD [facility] ER CONFUSION [id number] 04/26/2018 10:30:00 ACT Outpatient ECHO KRUEGER [facility] RAD MENTAL STATUS CHANGE,CONFUSION [id number] 03/03/2018 10:39:00 Document Registration [id number] 04/30/2015 10:26:49 ACT Document Registration [id number] 05/04/2017 10:00:00 05/04/2017 23:59:59 [facility] Outpatient RIK MAX LAC [facility]
[2018-04-26 12:25] LABS: ALANINE AMINOTRANSFERASE 17 U/L (0-55); ALBUMIN 4.2 GM/DL (3.2-4.5); ALKALINE PHOSPHATASE 84 U/L (40-136); BILIRUBIN,TOTAL 1.1 MG/DL (0.1-1.0); BUN/CREATININE RATIO 21; CARBON DIOXIDE 26 MMOL/L (21-32); CHLORIDE 104 MMOL/L (98-107); CREATININE SERUM 0.98 MG/DL (0.60-1.30); GFR ESTIMATED > 60; GLUCOSE 120 MG/DL (70-105); POTASSIUM 4.2 MMOL/L (3.6-5.0); SODIUM 140 MMOL/L (135-145); TOTAL PROTEIN 7.2 GM/DL (6.4-8.2)
[2018-04-26 12:30] VITALS: BP 166/83
== END 2018-04-26 12:55 | disposition short-term general hospital (02) ==
LOC: EDUNIT# 11:31 → ER 11:32
DX: S06.5X9A Traumatic subdural hemorrhage with loss of consciousness of unspecified duration, initial encounter (principal); I10 Essential (primary) hypertension; E03.9 Hypothyroidism, unspecified; E11.9 Type 2 diabetes mellitus without complications; Z85.51 Personal history of malignant neoplasm of bladder; Z79.82 Long term (current) use of aspirin; Z79.51 Long term (current) use of inhaled steroids; Z87.891 Personal history of nicotine dependence; X58.XXXA Exposure to other specified factors, initial encounter
CPT/HCPCS: 36415; 80053; 85025; 85610; 85730

== ENCOUNTER → 2018-04-26 | Outpatient (CLI) | payer MEDICARE ==
[2018-04-26 10:54] LABS: BASOPHILS % (AUTO) 0 % (0-10); EOSINOPHILS # (AUTO) 0.1 10^3/uL (0.0-0.3); EOSINOPHILS % (AUTO) 1 % (0-10); HEMATOCRIT 44 % (40-54); HEMOGLOBIN 14.5 G/DL (13.3-17.7); LYMPHOCYTES # (AUTO) 0.9 X 10^3 (1.0-4.0); LYMPHOCYTES % (AUTO) 11 % (12-44); MEAN CORPUSCULAR HEMOGLOBIN 28 PG (25-34); MEAN CORPUSCULAR HGB CONC 33 G/DL (32-36); MEAN CORPUSCULAR VOLUME 86 FL (80-99); MEAN PLATELET VOLUME 9.5 FL (7.4-10.4); MONOCYTES # (AUTO) 0.7 X 10^3 (0.0-1.0); MONOCYTES % (AUTO) 8 % (0-12); NEUTROPHILS # (AUTO) 6.2 X 10^3 (1.8-7.8); NEUTROPHILS % (AUTO) 79 % (42-75); PLATELET COUNT 429 10^3/uL (130-400); RED BLOOD COUNT 5.16 10^6/uL (4.35-5.85); RED CELL DISTRIBUTION WIDTH 14.5 % (10.0-14.5); WHITE BLOOD COUNT 7.8 10^3/uL (4.3-11.0)
[2018-04-26 11:09] LABS: ALANINE AMINOTRANSFERASE 18 U/L (0-55); ALBUMIN 4.4 GM/DL (3.2-4.5); ALKALINE PHOSPHATASE 88 U/L (40-136); BILIRUBIN,TOTAL 1.2 MG/DL (0.1-1.0); BUN/CREATININE RATIO 20; CARBON DIOXIDE 26 MMOL/L (21-32); CHLORIDE 103 MMOL/L (98-107); CREATININE SERUM 1.01 MG/DL (0.60-1.30); GFR ESTIMATED > 60; GLUCOSE 127 MG/DL (70-105); POTASSIUM 4.2 MMOL/L (3.6-5.0); SODIUM 140 MMOL/L (135-145); TOTAL PROTEIN 7.7 GM/DL (6.4-8.2)
[2018-04-26 11:09] LABS: BACTERIA,URINE NEGATIVE /HPF; BILIRUBIN,URINE NEGATIVE (NEGATIVE); CLARITY,URINE CLEAR; COLOR,URINE YELLOW; GLUCOSE, URINE (UA) 4+ (NEGATIVE); KETONES,URINE NEGATIVE (NEGATIVE); LEUKOCYTE ESTERASE ,URINE 1+ (NEGATIVE); NITRITE,URINE NEGATIVE (NEGATIVE); PH,URINE 5 (5-9); PROTEIN,URINE 1+ (NEGATIVE); UROBILINOGEN,URINE NORMAL (NORMAL); WBC,URINE RARE /HPF
--- NOTE | 2018-04-26 12:02 | Diagnostic Imaging Report ---
PROCEDURE: CT head without contrast. TECHNIQUE: Multiple contiguous axial images were obtained through the brain without the use of intravenous contrast. INDICATION: Confusion and altered mental status. FINDINGS: There are large mixed density bilateral subdural hematomas. These extend from the frontal regions through the parietal regions bilaterally. On the left this measures up to 2 cm in thickness and on the right this measures up to 1.6 cm in thickness. There is mass effect on both cerebral hemispheres. There is no hydrocephalus. Calvarium is intact. Sinuses and mastoid air cells are clear. IMPRESSION: Large bilateral mixed density subdural hematomas left greater than right. There is acute blood and bilaterally as well. There is mass effect on the underlying cerebral hemispheres as described. Findings are discussed directly to Shalini Mitchell as well as the ER physician. Dictated by: Dictated on workstation # [id number]
== END ==
LOC: RAD 10:30
PROVIDERS: ATTEND Nurse Practitioner Family
DX: S06.5X9A Traumatic subdural hemorrhage with loss of consciousness of unspecified duration, initial encounter (principal)
CPT/HCPCS: 36415; 70450; 80053; 81000; 85025

== ENCOUNTER → 2019-03-02 | Outpatient (CLI) | payer MEDICARE ==
--- NOTE | 2019-03-02 10:00 | Diagnostic Imaging Report ---
PROCEDURE: US right lower extremity venous. TECHNIQUE: Multiple real-time grayscale images were obtained over the right lower extremity in various projections. Additional spectral analysis and color Doppler duplex images were also obtained. INDICATION: Right leg swelling with pain. Right lower extremity femoral-popliteal deep venous system is widely patent. There was no deep or superficial thrombus demonstrated. No fluid collection was identified. IMPRESSION: Negative for venous thrombus or sonographically apparent fluid collection. Dictated by: Dictated on workstation # [id number]
== END ==
LOC: RAD 09:01
PROVIDERS: ATTEND Nurse Practitioner Family
DX: R22.41 Localized swelling, mass and lump, right lower limb (principal)

== ENCOUNTER → 2019-08-17 | Outpatient (CLI) | payer MEDICARE ==
--- NOTE | 2019-08-17 10:06 | Diagnostic Imaging Report ---
Clinical Indications: Patient with distal abdominal aortic aneurysm. EXAM: Ultrasound of the abdominal aorta with Doppler interrogation. COMPARISON: None. FINDINGS: There is mild dilation of the infrarenal distal abdominal aorta which measures 2.4 cm x 2.8 cm in AP and transverse dimensions, and measures 4.4 cm in craniocaudal dimension. The proximal and midabdominal aorta measure 1.9 cm x 2.5 cm and 1.7 cm x 1.4 cm in AP and transverse dimensions, respectively. The bilateral common iliac arteries are non-aneurysmal and subcentimeter in greater short axis. IMPRESSION: There is vascular ectasia involving the infrarenal distal abdominal aorta measuring 2.8 cm in greatest axial dimension. Dictated by: Dictated on workstation # [id number]
== END ==
LOC: RAD 06:36
PROVIDERS: ATTEND Nurse Practitioner Family
DX: I71.4 Abdominal aortic aneurysm, without rupture (principal); I25.10 Atherosclerotic heart disease of native coronary artery without angina pectoris
CPT/HCPCS: 76775

== ENCOUNTER → 2020-06-25 | Outpatient (CLI) | payer MEDICARE ==
[~2020-06-25] VITALS: Ht 182 cm; Wt 76.0 kg
[~2020-06-25] MED LIST changes: -CALC600T12 PO; +CATHETER FLUSH 10 ML SYR IV PRN; +CLC600T PO; +REGADENOSON 0.4 MG/5 ML SYR (LEXISCAN) IV ONE
[2020-06-25 09:07] VITALS: BP 145/77
--- NOTE | 2020-06-25 17:23 | STRESS TEST ---
DATE OF SERVICE: 06/25/2020 RESTING AND POST REGADENOSON TECHNETIUM-99M TETROFOSMIN SPECT CT IMAGING ORDERING PHYSICIAN: Daina Casas APRN PRIMARY PHYSICIAN: Dr. Iyer. OTHER PHYSICIAN: Dr. Sheppard. CLINICAL DIAGNOSIS: Coronary artery disease. Baseline images were carried out after injection of 10.46 mCi of technetium-99m Tetrofosmin. This was followed by 0.4 mg Regadenoson and 32.1 mCi of technetium-99m Tetrofosmin for stress imaging. The electrocardiogram showed sinus rhythm at the baseline. Right bundle branch block is seen. The electrocardiogram did not change significantly with the Regadenoson infusion. He noted mild shortness of breath following the Regadenoson infusion, which resolved in a few minutes. Overall, he tolerated the procedure well. Review of images at rest and following stress does not indicate any significant perfusion defects consistent with myocardial ischemia or infarction. Some degree of diaphragmatic attenuation is seen both at rest and following Regadenoson infusion. Gated images show normal global left ventricular systolic function with normal regional wall motion, including the diaphragmatic wall of the left ventricle. Left ventricular ejection fraction is calculated to be 65%. Left ventricular end diastolic volume is 67 mL. TID is absent (0.94). CONCLUSIONS: 1. No evidence of any significant myocardial ischemia or infarction on this study. 2. Normal regional wall motion. 3. Normal global left ventricular systolic function with a calculated ejection fraction of 65%. Job ID: [id number] DocumentID: [id number] Dictated Date: 06/25/2020 14:27:36 Color Grinder Date: 06/25/2020 17:22:33 Dictated By: SAV SHEPPARD MD, MA, FACP, FACC,
== END ==
LOC: CARD 07:30
PROVIDERS: ATTEND Nurse Practitioner Family
DX: I25.10 Atherosclerotic heart disease of native coronary artery without angina pectoris (principal)
CPT/HCPCS: 78452; 93017; A9502

== ENCOUNTER → 2021-07-31 | Outpatient (CLI) | payer MEDICARE, OTHER ==
[~2021-07-31] MED LIST changes: +CALC600T91 PO; -CATHETER FLUSH 10 ML SYR IV PRN; -CLC600T PO; -REGADENOSON 0.4 MG/5 ML SYR (LEXISCAN) IV ONE
--- NOTE | 2021-07-31 10:16 | Diagnostic Imaging Report ---
PROCEDURE: MR imaging of the brain without contrast. TECHNIQUE: Multiplanar, multisequence MR imaging of the brain was performed without contrast. INDICATION: Difficulty with memory. Previous intracranial hemorrhage and surgery. COMPARISON: I Have no previous brain MRI, the exam however correlated with head CT dated 04/26/2018. FINDINGS: There are no foci of abnormal diffusion restriction. There were no findings of an acute or subacute ischemic infarct. There is no hydrocephalus, chronic atrophy and mild white matter small vessel sequelae are stable. There are no findings of residual or recurrent intracranial hemorrhage. There does appear to be mild dural thickening along the right convexity postero-superiorly where there are overlying postsurgical changes to the calvarium. Basilar cisterns patent. No sulcal effacement. No shift or herniation. No evidence for an elevation of the intracranial pressures. Slight membrane thickening of the paranasal sinuses without air-fluid level. No mastoid effusion. The cerebellopontine angles appeared unremarkable. IMPRESSION: Mild chronic atrophy and mild white matter small vessel disease, unremarkable for age. No findings of recent ischemia. No evidence for residual or recurrent hemorrhage. No acute appearing abnormalities. Postoperative changes, as described, with chronic paranasal sinus membrane disease. Dictated by: Dictated on workstation # [id number]
== END ==
LOC: RAD 09:30
PROVIDERS: ATTEND Nurse Practitioner Family
DX: G31.9 Degenerative disease of nervous system, unspecified (principal); J32.9 Chronic sinusitis, unspecified
CPT/HCPCS: 70551

== ENCOUNTER 2021-09-24 12:55 | Emergency (ER) | payer MEDICARE, OTHER ==
[2021-09-24 13:28] LABS: BASOPHILS # (AUTO) 0.1 10^3/uL (0.0-0.1); BASOPHILS % (AUTO) 1 % (0-10); EOSINOPHILS % (AUTO) 0 % (0-10); HEMATOCRIT 42 % (40-54); HEMOGLOBIN 13.8 g/dL (13.3-17.7); LYMPHOCYTES # (AUTO) 0.8 10^3/uL (1.0-4.0); LYMPHOCYTES % (AUTO) 8 % (12-44); MEAN CORPUSCULAR HEMOGLOBIN 30 pg (25-34); MEAN CORPUSCULAR HGB CONC 33 g/dL (32-36); MEAN CORPUSCULAR VOLUME 90 fL (80-99); MEAN PLATELET VOLUME 9.4 fL (9.0-12.2); MONOCYTES # (AUTO) 1.3 10^3/uL (0.0-1.0); MONOCYTES % (AUTO) 12 % (0-12); NEUTROPHILS # (AUTO) 8.7 10^3/uL (1.8-7.8); NEUTROPHILS % (AUTO) 80 % (42-75); PLATELET COUNT 381 10^3/uL (130-400); WHITE BLOOD COUNT 10.9 10^3/uL (4.3-11.0)
--- NOTE | 2021-09-24 13:38 | ED General ---
General Chief Complaint: General Problems/Pain Stated Complaint: AMS - BACK PAIN Nursing Triage Note: PT AMB TO ER WITH CANE WITH C/O LOW BACK PAIN. PTS STATES HE HAS BEEN MORE TIRED TODAY THAN NORMAL AND POSSIBLY FELL TODAY WHILE SHE WAS GONE Source of Information: Patient Exam Limitations: No Limitations History of Present Illness Date Seen by Provider: Sep 24, 2021 Time Seen by Provider: 13:15 Initial Comments To ER ambulatory with reports of low back pain. states that has been more fatigued today. Typically he wakes up at 6 AM and did not do that today. He slept until about 11. Then while in the bathroom he fell backwards causing a hole in the bathroom wall. His only complaint is of some low back pain which is apparently chronic. He did have history of intracranial hemorrhage in 2018. He was sent to [facility] in [place] and treated surgically with bur hole craniotomy x4 by Dr. Moraes. He denies any headache or pain. His only anticoagulant/antiplatelet is an aspirin. Timing/Duration: 4-6 Hours Severity: Moderate Associated Systoms: Denies Symptoms Allergies and Home Medications Allergies Coded Allergies: No Known Drug Allergies (Unverified , 10/09/10) Patient Home Medication List Home Medication List Reviewed: Yes Ascorbic Acid (Ascorbic Acid) 500 Mg Tablet, 500 MG PO DAILY PRN for cold, (Reported) Entered as Reported by: TAN BROWN on 05/25/17 0917 Aspirin (Aspir 81) 81 Mg Tablet.dr, 81 MG PO HS, (Reported) Entered as Reported by: TAN BROWN on 05/25/17 0910 Baclofen (Baclofen) 10 Mg Tablet, 10 MG PO TID PRN for MUSCLE SPASMS, (Reported) Entered as Reported by: PAULINO NUNEZ on 09/11/15 1256 Calcium Carbonate (Calcium) 600 Mg Tablet, 600 MG PO DAILY, (Reported) Entered as Reported by: TAN BROWN on 05/25/17 0912 Cholecalciferol (Vitamin D3) (Vitamin D3) 2,000 Unit Capsule, 2,000 UNIT PO DAILY, (Reported) Entered as Reported by: PAULINO NUNEZ on 01/02/15 1245 Cyanocobalamin (Vitamin B-12) (Vitamin B12) 2,500 Mcg Tab.chew, 1,250 MCG PO DAILY, (Reported) Entered as Reported by: TAN BROWN on 05/25/17 0911 Finasteride (Finasteride) 5 Mg Tablet, 5 MG PO HS, (Reported) Entered as Reported by: PAULINO NUNEZ on 01/02/15 1252 Fish Oil/Dha/Epa (Fish Oil 1,200 Mg Fish Oil) 1 Each Capsule, 1,200 EACH PO HS, (Reported) Entered as Reported by: SHIVA CHO on 06/26/13 1528 Fluticasone Propionate (Flonase Allergy Relief) 9.9 Ml [place].susp, 1 SPRAY NS DAILY, (Reported) Entered as Reported by: TAN BROWN on 05/25/17 0914 Levothyroxine Sodium (Levothyroxine Sodium) 137 Mcg Tablet, 137 MCG PO DAILY, (Reported) Entered as Reported by: TAN BROWN on 05/25/17 0908 Loperamide HCl (Loperamide) 2 Mg Capsule, 2 MG PO PRN PRN for LOOSE STOOLS, (Reported) Entered as Reported by: TAN BROWN on 05/25/17 0913 Loratadine (Claritin) 10 Mg Capsule, 10 MG PO DAILY, (Reported) Entered as Reported by: SHIVA CHO on 06/26/13 1528 Losartan Potassium (Losartan Potassium) 50 Mg Tablet, 50 MG PO DAILY, (Reported) Entered as Reported by: PAULINO NUNEZ on 01/02/15 1245 Magnesium Oxide (Magnesium) 400 Mg Tablet, 400 MG PO HS, (Reported) Entered as Reported by: PAULINO NUNEZ on 09/11/15 1256 Metoprolol Succinate (Metoprolol Succinate Xl 25 Mg) 25 Mg Tab.sr.24h, 25 MG PO HS, (Reported) Entered as Reported by: PAULINO NUNEZ on 01/02/15 1245 Mu-Vits-Min Th/Lycopene/Lutein (Century Adults 50+ Tablet) 1 Each Tablet, 1 EACH PO DAILY, (Reported) Entered as Reported by: PAULINO NUNEZ on 01/02/15 1245 Nitroglycerin (Nitroglycerin) 0.4 Mg Tab.subl, 0.4 MG SL PRN PRN for chest pain Prescribed by: TATI WORTHINGTON on 01/16/16 1353 Simvastatin (Simvastatin) 10 Mg Tablet, 10 MG PO HS, (Reported) Entered as Reported by: NATHALIE CUEVAS on 10/09/10 1007 Sitagliptin Phosphate (Januvia) 50 Mg Tablet, 50 MG PO DAILY, (Reported) Entered as Reported by: ELLIOTT REYNOSO on 10/09/10 1838 Tamsulosin Hcl (Tamsulosin Hcl) 0.4 Mg Cap.sr.24h, 0.4 MG PO HS, (Reported) Entered as Reported by: PAULINO NUNEZ on 01/02/15 1252 Review of Systems Review of Systems Constitutional: see HPI EENTM: see HPI Respiratory: no symptoms reported Cardiovascular: no symptoms reported Genitourinary: no symptoms reported Musculoskeletal: see HPI, back pain Skin: no symptoms reported Psychiatric/Neurological: No Symptoms Reported Hematologic/Lymphatic: No Symptoms Reported Immunological/Allergic: no symptoms reported Past Kgumsdk-Bgqigp-Wajoqo Hx Patient Social History Tobacco Use?: No Substance use?: No Alcohol Use?: No Immunizations Up To Date Tetanus Booster (TDap): Unknown First/Initial COVID19 Vaccinat: 2020 Second COVID19 Vaccination Tate: 2020 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: [employer] Past Medical History Surgery/Hospitalization HX: HTN, DM Surgeries: Yes (NECK) Cardiac, Orthopedic Respiratory: No Cardiac: Yes Hypertension Neurological: No Reproductive Disorders: No HIV/AIDS: No Gastrointestinal: No Musculoskeletal: Yes (MUSCULAR PROBLEMS WITH SHOULDERS, NECK FUSION IN 07/02) Endocrine: Yes Hypothyroidsim, Diabetes, Non-Insulin dep Loss of Vision: Denies Hearing Impairment: Denies Cancer: Yes Bladder Psychosocial: No Integumentary: No Blood Disorders: No (BRUISES EASILY) Adverse Reaction/Blood Tranf: No Physical Exam Vital Signs Vital Signs - First Documented 09/24/21 13:05 Temp 36.3 Pulse 73 Resp 16 B/P (MAP) 161/73 (102) Capillary Refill : Height, Weight, BMI Height: 6'0.00" Weight: 160lbs. 0.0oz. 72.108082pr; 22.94 BMI Method:Stated General Appearance: No Apparent Distress, WD/WN, Other (No scalp hematoma or abrasion. He is alert and oriented.) Eyes: Bilateral Eye Normal Inspection, Bilateral Eye PERRL, Bilateral Eye EOMI HEENT: PERRL/EOMI, TMs Normal Neck: Full Range of Motion, Normal Inspection Respiratory: No Accessory Muscle Use, No Respiratory Distress Cardiovascular: Regular Rate, Rhythm, Normal Peripheral Pulses Gastrointestinal: Normal Bowel Sounds, Non Tender, Soft Extremity: Normal Capillary Refill, Normal Inspection Neurologic/Psychiatric: Alert, Oriented x3 Skin: Normal Color, Warm/Dry Progress/Results/Core Measures Suspected Sepsis SIRS Temperature: Pulse: 73 Respiratory Rate: 16 Laboratory Tests 09/24/21 13:18: White Blood Count 10.9 Blood Pressure 161 /73 Mean: 102 Laboratory Tests 09/24/21 13:18: Creatinine 0.93, INR Comment 1.0, Platelet Count 381, Total Bilirubin 1.4H Results/Orders Lab Results Laboratory Tests Test 09/24/21 13:18 Range/Units White Blood Count 10.9 4.3-11.0 10^3/uL Red Blood Count 4.67 4.30-5.52 10^6/uL Hemoglobin 13.8 13.3-17.7 g/dL Hematocrit 42 40-54 % Mean Corpuscular Volume 90 80-99 fL Mean Corpuscular Hemoglobin 30 25-34 pg Mean Corpuscular Hemoglobin Concent 33 32-36 g/dL Red Cell Distribution Width 12.7 10.0-14.5 % Platelet Count 381 130-400 10^3/uL Mean Platelet Volume 9.4 9.0-12.2 fL Immature Granulocyte % (Auto) 0 % Neutrophils (%) (Auto) 80 H 42-75 % Lymphocytes (%) (Auto) 8 L 12-44 % Monocytes (%) (Auto) 12 0-12 % Eosinophils (%) (Auto) 0 0-10 % Basophils (%) (Auto) 1 0-10 % Neutrophils # (Auto) 8.7 H 1.8-7.8 10^3/uL Lymphocytes # (Auto) 0.8 L 1.0-4.0 10^3/uL Monocytes # (Auto) 1.3 H 0.0-1.0 10^3/uL Eosinophils # (Auto) 0.0 0.0-0.3 10^3/uL Basophils # (Auto) 0.1 0.0-0.1 10^3/uL Immature Granulocyte # (Auto) 0.0 0.0-0.1 10^3/uL Neutrophils % (Manual) 79 % Lymphocytes % (Manual) 6 % Monocytes % (Manual) 14 % Eosinophils % (Manual) 1 % Blood Morphology Comment NORMAL Prothrombin Time 13.4 12.2-14.7 SEC INR Comment 1.0 0.8-1.4 Activated Partial Thromboplast Time 28 24-35 SEC Sodium Level 138 135-145 MMOL/L Potassium Level 4.3 3.6-5.0 MMOL/L Chloride Level 102 98-107 MMOL/L Carbon Dioxide Level 26 21-32 MMOL/L Anion Gap 10 5-14 MMOL/L Blood Urea Nitrogen 14 7-18 MG/DL Creatinine 0.93 0.60-1.30 MG/DL Estimat Glomerular Filtration Rate 79 BUN/Creatinine Ratio 15 Glucose Level 152 H 70-105 MG/DL Calcium Level 9.6 8.5-10.1 MG/DL Corrected Calcium 9.8 8.5-10.1 MG/DL Total Bilirubin 1.4 H 0.1-1.0 MG/DL Aspartate Amino Transf (AST/SGOT) 18 5-34 U/L Alanine Aminotransferase (ALT/SGPT) 13 0-55 U/L Alkaline Phosphatase 84 40-136 U/L Total Protein 6.8 6.4-8.2 GM/DL Albumin 3.8 3.2-4.5 GM/DL My Orders Orders - STAS DOBBINS APRN Cbc With Automated Diff (09/24/21 13:19) Comprehensive Metabolic Panel (09/24/21 13:19) Protime With Inr (09/24/21 13:19) Partial Thromboplastin Time (09/24/21 13:19) Ua Culture If Indicated (09/24/21 13:19) Ed Iv/Invasive Line Start (09/24/21 13:19) Ekg Tracing (09/24/21 13:19) Ct Head/Cervical Spine Wo (09/24/21 13:19) Manual Differential (09/24/21 13:18) Vital Signs/I&O 09/24/21 13:05 Temp 36.3 Pulse 73 Resp 16 B/P (MAP) 161/73 (102) Capillary Refill : Blood Pressure Mean: 102 Departure Communication (Admissions) 1420-he spent about 20 minutes in the bathroom trying to urinate but was unable to does not feel the urge to go. Hes had no urinary symptoms so I will not get a straight catheter. Impression Primary Impression: Fall Disposition: 01 HOME, SELF-CARE Condition: Stable Departure-Patient Inst. Decision time for Depature: 14:17 Referrals: NEETU MATA MD (PCP/Family) Primary Care Physician Patient Instructions: Preventing Falls ED Add. Discharge Instructions: 1. Return to ER for any concerns. Follow-up with his doctor later this week.Remember that we did not get a urine sample so if he has ongoing weakness confusion or lethargy or recurrent falls we will need to get a urine sample as a urinary tract infection can cause all of the symptoms. All discharge instructions reviewed with patient and/or family. Voiced understanding. STAS DOBBINS APRN Sep 24, 2021 13:38
[2021-09-24 13:44] LABS: ALBUMIN 3.8 GM/DL (3.2-4.5); POTASSIUM 4.3 MMOL/L (3.6-5.0); PROTHROMBIN TIME PATIENT 13.4 SEC (12.2-14.7)
[2021-09-24 13:46] LABS: CALCIUM 9.6 MG/DL (8.5-10.1)
[2021-09-24 13:47] LABS: TOTAL PROTEIN 6.8 GM/DL (6.4-8.2)
--- NOTE | 2021-09-24 13:48 | Diagnostic Imaging Report ---
PROCEDURE: CT head and CT cervical spine without contrast. TECHNIQUE: Multiple contiguous axial images were obtained through the brain and cervical spine without the use of intravenous contrast. Sagittal and coronal reformations through the cervical spine were then performed. Auto Exposure Controls were utilized during the CT exam to meet ALARA standards for radiation dose reduction. INDICATION: Fall. Hit head. History of prior brain bleed. COMPARISON: MRI brain on 07/31/2021. CT head on 04/26/2018. FINDINGS: CT head: No large acute territorial ischemia, mass, or hemorrhage. No midline shift or mass effect. Decreased attenuation is seen in the periventricular and subcortical white matter. The ventricles and cortical sulci are prominent. The basilar cisterns are patent and unremarkable. The calvarium is intact. Prior quoc holes are noted. Mucosal thickening is seen throughout the paranasal sinuses. The mastoid air cells are clear. CT cervical spine: No acute fracture or dislocation is seen in the cervical spine. No focal osseous lesions. ACDF changes are visualized from C4 to C7. Vertebral body heights are well-maintained. The craniocervical junction is well-maintained. Mild degenerative changes are seen in the cervical spine with disc osteophyte complexes and uncovertebral arthropathy. Soft tissues of the neck are unremarkable. Biapical scarring is seen. IMPRESSION: 1. No hemorrhage or focal intra-axial mass. No CT evidence of large acute territorial ischemia. 2. No acute fracture or dislocation in the cervical spine. Dictated by: Dictated on workstation # [id number]
[2021-09-24 13:49] LABS: BILIRUBIN,TOTAL 1.4 MG/DL (0.1-1.0)
[2021-09-24 13:50] LABS: CREATININE SERUM 0.93 MG/DL (0.60-1.30); EOSINOPHILS % (MANUAL) 1 %; LYMPHOCYTES % (MANUAL) 6 %; MONOCYTES % (MANUAL) 14 %; NEUTROPHILS % (MANUAL) 79 %; RBC MORPH NORMAL
[2021-09-24 14:39] VITALS: BP 129/70
== END 2021-09-24 14:40 | disposition home or self-care (01) ==
LOC: EDUNIT# 12:55 → ER 12:57
DX: M54.50 Low back pain, unspecified (principal); Z79.82 Long term (current) use of aspirin
CPT/HCPCS: 36415; 70450; 72125; 80053; 85007; 85027; 85610; 85730; 93005

== ENCOUNTER → 2021-09-25 | Outpatient (CLI) | payer MEDICARE, OTHER ==
--- NOTE | 2021-09-25 16:38 | Diagnostic Imaging Report ---
INDICATION: Left leg pain. Left leg venous Doppler study was performed in the routine fashion with color flow Doppler and waveform analysis. FINDINGS: The left common femoral vein, superficial femoral vein, popliteal vein and visualized portion of the posterior tibial vein show normal compressibility and venous flow patterns. There is normal augmentation. IMPRESSION: No evidence of deep vein thrombosis of the major veins of the left leg. No change from 03/15/2018. Dictated by: Dictated on workstation # [id number]
== END ==
LOC: RAD 15:34
PROVIDERS: ATTEND Nurse Practitioner Family
DX: R22.42 Localized swelling, mass and lump, left lower limb (principal)

== ENCOUNTER 2021-10-10 08:13 | Outpatient (CLI) | payer MEDICARE, OTHER ==
[~2021-10-10] VITALS: Ht 182.9 cm; Wt 91.0 kg
[2021-10-10] MEDS ORDERED: TUME1CAP PO (12:39)
[2021-10-10] MEDS ORDERED: DEXT1TAB3 PO (12:39)
[2021-10-10] MEDS ORDERED: LACT1CAP62 PO (12:39)
[2021-10-10] MEDS ORDERED: FURO20TA4 PO (12:39)
[2021-10-13] MEDS ORDERED: ACHD5005 PO (11:47)
== END 2021-10-10 12:49 | disposition home or self-care (01) ==
LOC: PREOP 08:13
PROVIDERS: ATTEND Podiatrist Foot & Ankle Surgery
DX: Z01.818 Encounter for other preprocedural examination (principal)

== ENCOUNTER → 2021-10-30 | Outpatient (CLI) | payer MEDICARE, OTHER ==
[~2021-10-30] MED LIST changes: +ACHD5005 PO; +DEXT1TAB3 PO; +FURO20TA4 PO; +LACT1CAP62 PO; +TUME1CAP PO
--- NOTE | 2021-10-30 15:41 | Diagnostic Imaging Report ---
INDICATION: Nonhealing ulcer left foot. EXAMINATION: Ankle-brachial indices. FINDINGS: Pressures were recorded in the brachial arteries bilaterally and in the dorsalis pedis and posterior tibial arteries at both ankles. The calculated ADAM on the right is 1.22 and on the left is 1.04. IMPRESSION: Normal bilateral ankle brachial indices. Dictated by: Dictated on workstation # [id number]
== END ==
LOC: RAD 13:30
PROVIDERS: ATTEND Nurse Practitioner Family
DX: L97.529 Non-pressure chronic ulcer of other part of left foot with unspecified severity (principal)
CPT/HCPCS: 93922

== ENCOUNTER → 2021-12-01 | Outpatient (CLI) | payer MEDICARE, OTHER ==
--- NOTE | 2021-12-01 12:47 | Diagnostic Imaging Report ---
PROCEDURE: MR imaging of the brain without contrast. TECHNIQUE: Multiplanar, multisequence MR imaging of the brain was performed without contrast. DATE: December 01, 2021. COMPARISON: CT head and cervical spine September 24, 2021. MRI brain July 31, 2021. HISTORY: 86-year-old male, increasing memory loss. History of prior intracranial hemorrhage. FINDINGS: There is no restricted diffusion. There are no areas of abnormal intracranial susceptibility. There is proportional prominence of the ventricles and additional CSF spaces, consistent with moderate to severe cerebral volume loss. There is no abnormal extra axial fluid collection. There is no acute intracranial hemorrhage. There is no mass effect or midline shift. There is T2 and FLAIR hyperintense signal in the periventricular and subcortical white matter which is nonspecific but most likely reflect mild to moderate findings of chronic small vessel ischemic disease. There is mucosal thickening of the paranasal sinuses. There is no air-fluid level in the paranasal sinuses. There is partial opacification in the bilateral mastoid air cells. IMPRESSION: 1. No identified acute intracranial abnormality. 2. Moderate to severe cerebral volume loss with mild to moderate findings of chronic small vessel ischemic disease. Dictated by: Dictated on workstation # [id number]
== END ==
LOC: RAD 09:30
PROVIDERS: ATTEND Nurse Practitioner Family
DX: I67.82 Cerebral ischemia (principal)
CPT/HCPCS: 70551

== ENCOUNTER 2022-08-05 08:23 | Outpatient (RCR) | payer MEDICARE, OTHER ==
[~2022-08-05 08:23] MED LIST changes: +CLOP-31 PO; -CLOP75TA69 PO; -DEXT1TAB3 PO; +DEXT1TAB5 PO
== END 2022-08-18 ==
LOC: ONC 08:23
PROVIDERS: ATTEND Internal Medicine Hematology & Oncology
DX: C67.9 Malignant neoplasm of bladder, unspecified (principal); I10 Essential (primary) hypertension; E11.9 Type 2 diabetes mellitus without complications; K21.9 Gastro-esophageal reflux disease without esophagitis; E78.5 Hyperlipidemia, unspecified; E03.9 Hypothyroidism, unspecified
CPT/HCPCS: G0103; G0463; 84153; 99204

== ENCOUNTER → 2022-08-28 | Outpatient (CLI) | payer MEDICARE, OTHER ==
--- NOTE | 2022-08-28 09:09 | Diagnostic Imaging Report ---
CLINICAL INDICATION: Patient with abdominal aortic aneurysm without rupture. Exam: Ultrasound of the abdominal aorta. Comparison study: Ultrasound of the abdominal aorta dated 08/17/2019. Findings: The abdominal aorta has smooth contour and caliber without evidence of aneurysms. The maximum AP and transverse diameters for the upper, mid, and distal abdominal aorta are 2.1 cm x 2.3 cm, 2.8 cm x 2.0 cm, and 2.4 cm x 2.2 cm, respectively. This area of distal abdominal aortic vascular ectasia is roughly 4.5 cm in craniocaudal dimensions. Both common iliac artery contours are smooth with normal caliber with the right and left measuring 0.7 cm and 0.9 cm in greatest AP dimension. Impression: Stable vascular ectasia of the distal abdominal aortic aneurysm. Dictated by: Dictated on workstation # [id number]
== END ==
LOC: RAD 07:40
PROVIDERS: ATTEND Internal Medicine Cardiovascular Disease
DX: I71.40 Abdominal aortic aneurysm, without rupture, unspecified (principal)
CPT/HCPCS: 76775

== ENCOUNTER → 2023-06-01 | Outpatient (CLI) | payer MEDICARE, OTHER ==
--- NOTE | 2023-06-01 11:11 | Diagnostic Imaging Report ---
INDICATION: History of diabetes with right lower extremity ulcers.. TECHNIQUE: Segmental pulse pressures were performed of the upper and lower extremities. FINDINGS: Resting Doppler Blood Pressures RIGHT Brachial: 126 mmHg Ankle (Posterior Tibial): 162 mm Hg Index: 1.26 Ankle (Dorsalis Pedis): 129 mm Hg Index: 1.0 LEFT Brachial: 129 mmHg Ankle (Posterior Tibial): 128 mm Hg Index: 0.99 Ankle (Dorsalis Pedis): 148 mm Hg Index: 1.15 IMPRESSION: Ankle-brachial indices as above. Ankle-Brachial Index Diagnosis/Interpretation <=0.90 Peripheral Arterial Disease 0.91-0.99 Borderline 1.00-1.40 Normal >1.40 Concern for noncompressible arteries, (assoc with Diabetes Mellitus) Dictated by: Dictated on workstation # [id number]
== END ==
LOC: RAD 08:06
PROVIDERS: ATTEND Family Medicine
DX: I87.8 Other specified disorders of veins (principal); L03.115 Cellulitis of right lower limb; R60.0 Localized edema; E08.51 Diabetes mellitus due to underlying condition with diabetic peripheral angiopathy without gangrene; R01.1 Cardiac murmur, unspecified; R79.89 Other specified abnormal findings of blood chemistry
CPT/HCPCS: 93922; C8929; 93306